=== PATIENT | male | born 1955 | race Caucasian/White ===

== ENCOUNTER 2016-03-08 03:00 | Inpatient (IN) | payer OTHER ==
[2016-03-08 03:31] VITALS: BMI 39.5
[2016-03-08 03:39] LABS: BASOPHIL 0.8 % (0-2.0); EOSINOPHIL 3.9 % (0-4.5); MEAN CELL VOLUME 81.2 fl (80-96); MEAN PLT VOLUME 7.8 fl (7.5-11.1); NEUTROPHILS 60.2 % (42.8-82.8); PLATELET COUNT 249 K/MM3 (134-434); RDW 15.4 % (11.9-15.9); WHITE BLOOD COUNT 6.8 K/mm3 (4.0-10.0)
--- NOTE | 2016-03-08 03:40 | PDOC ---
History of Present Illness <Katarzyna Ernst - Last Filed: 03/08/16 04:38> - General History Source: Patient, Family Exam Limitations: No Limitations - History of Present Illness Initial Comments: 03/08/16 03:34 Patient is a 60-year-old male with history of CAD, A. fib, sleep apnea, HLD, [place] , GERD, stents placement x 14, cadiac ablation complaining of shortness of breath. States his SOB is chronic but is able to lay down and go to sleep. But tonight when he would try to lay down he had shortness of breath and has been persistent since 10:00 PM. He denies any chest pain, dizziness, nausea, vomiting , diarrhea. States that about 9:30pm he had some sweating with no other symptoms. States had a cardiology follow up 1 week was uneventful. No recent travel, no leg swelling. He is on anticoagulants - coumadin, effient and asa PMD: Dr. Bari Nolan Cardio: Dr. Baer PMHx: as above PSocHx: denies drug, etoh, cig PFAMHX: non contributory ALL: Levaquin GENERAL/CONSTITUTIONAL: HEAD, EYES, EARS, NOSE AND THROAT: [No change in vision. No ear pain or discharge. No sore throat.] CARDIOVASCULAR: (+) chest pain (+) shortness of breath.] RESPIRATORY: [No cough, wheezing, or hemoptysis.] GASTROINTESTINAL: [No nausea, vomiting, diarrhea or constipation. No rectal bleeding.] GENITOURINARY: [No dysuria, frequency, or change in urination.] MUSCULOSKELETAL: [No joint or muscle swelling or pain. No neck or back pain.] SKIN AND BREASTS: [No rash or easy bruising.] NEUROLOGIC: [No headache, vertigo, loss of consciousness, or loss of sensation.] PSYCHIATRIC: [No depression or anxiety.] ENDOCRINE: [No increased thirst. No abnormal weight change.] HEMATOLOGIC/LYMPHATIC: [No anemia, easy bleeding, or history of blood clots.] ALLERGIC/IMMUNOLOGIC: [No hives or skin allergy. No latex allergy.] Dry, normal turgor, no rashes or lesions noted.] GENERAL: [The patient is awake, alert, and fully oriented, in no acute distress. ] HEAD: [Normal with no signs of trauma.] EYES: [Pupils equal, round and reactive to light, extraocular movements intact, sclera anicteric, conjunctiva clear.] ENT: [Ears normal, nares patent, oropharynx clear without exudates. Moist mucous membranes.] NECK: [Normal range of motion, supple without lymphadenopathy, JVD, or masses.] LUNGS: [Breath sounds equal, clear to auscultation bilaterally. No wheezes, and no crackles, slightly dyspneic.] HEART: distant heart sound, Regular rate and rhythm, normal S1 and S2 without murmur, rub.] ABDOMEN: Obese, soft, nontender, normoactive bowel sounds. No guarding, no rebound. No masses.] EXTREMITIES: [Normal range of motion, no edema. No clubbing or cyanosis. No cords, erythema, or tenderness.] NEUROLOGICAL: [Cranial nerves II through XII grossly intact. Normal speech, normal gait.] PSYCH: [Normal mood, normal affect.] SKIN: [Warm, Dry, normal turgor, no rashes or lesions noted.] <Tatum Townsend - Last Filed: 03/08/16 06:01> - General Chief Complaint: Shortness of Breath Stated Complaint: SOB, ARM PAIN Time Seen by Provider: 03/08/16 03:14 Past History <Katarzyna Ernst - Last Filed: 03/08/16 04:38> - Past Medical History Anemia: No Asthma: No Cancer: No Cardiac Disorders: Yes (A FIB, [place]) CVA: No COPD: Yes CHF: Yes Dementia: No Diabetes: No GI Disorders: Yes (ACID REFLUX) Disorders: No HTN: Yes Hypercholesterolemia: Yes Liver Disease: No Suicide Attempt (Hx): No Seizures: No Thyroid Disease: No - Surgical History Cardiac Surgery: Yes (13 stent placements & CARDIAC ABLIATION 01/2014) - Immunization History Immunization Up to Date: Yes - Psycho/Social/Smoking Cessation Hx Anxiety: No Suicidal Ideation: No Smoking Status: No Smoking History: Never smoked Have you smoked in the past 12 months: No Number of Cigarettes Smoked Daily: 0 If you are a former smoker, when did you quit?: 1990 Information on smoking cessation initiated: No Hx Alcohol Use: No Drug/Substance Use Hx: No Substance Use Type: None Hx Substance Use Treatment: No <Tatum Townsend - Last Filed: 03/08/16 06:01> - Past Medical History Allergies/Adverse Reactions: Allergies Allergy/AdvReac Type Severity Reaction Status Date / Time levofloxacin [From Levaquin] Allergy Intermediate Swelling Verified 03/08/16 04: 35 Home Medications: Ambulatory Orders Aspirin [ASA -] 81 mg PO DAILY 02/13/13 Furosemide [Lasix -] 40 mg PO BID 02/13/13 Lisinopril [Prinivil] 10 mg PO DAILY 02/13/13 Lubiprostone [Amitiza] 24 mcg PO DAILY 02/13/13 Oxycodone HCl 30 mg PO DAILY PRN 02/13/13 Oxycodone HCl/Acetaminophen [Percocet 10-650 mg Tablet] 1 - 2 tab PO Q6H PRN Prasugrel HCl [Effient] 5 mg PO DAILY 02/13/13 Pravastatin Sodium [Pravachol -] 80 mg PO HS 02/13/13 Ranolazine [Ranexa -] 1,000 mg PO BID 02/13/13 Fenofibrate 160 mg PO DAILY 09/30/13 [place]-3 Acid Ethyl Esters [Lovaza -] 1 gm PO BID 09/30/13 Roflumilast [Daliresp] 500 mcg PO DAILY 09/30/13 Dexlansoprazole [Dexilant] 60 mg PO BID 12/01/13 Warfarin Sodium [Coumadin] 4 mg PO HS 12/10/13 Albuterol Sulfate [Proair Hfa -] 1 - 2 inh PO QID PRN 01/16/14 Linaclotide [Linzess] 145 mcg PO DAILY 01/16/14 Amiodarone HCl [Cordarone -] 200 mg PO DAILY 04/19/14 Tamsulosin HCl [Flomax] 0.4 mg PO DAILY 02/04/15 Beclomethasone Dipropionate [Qvar] 2 inh IH BID 03/08/16 Diltiazem HCl [Diltiazem ER] 120 mg PO DAILY 03/08/16 Famotidine [Pepcid -] 40 mg PO DAILY 03/08/16 Isosorbide Mononitrate [IMDUR 120mg [STRENGTH NOT CARRIED]] 1 tab PO DAILY 03/08 Metoprolol Tartrate 100 mg PO DAILY 03/08/16 Pantoprazole Sodium [Protonix -] 40 mg PO DAILY 03/08/16 Ranitidine [Zantac -] 150 mg PO ACDIN 03/08/16 Roflumilast [Daliresp -] 500 mcg PO DAILY 03/08/16 Tiotropium Br/Olodaterol HCl [Stiolto Respimat Inhal [place]] 2.5 mcg IH BID 03/08 *Physical Exam - Vital Signs Last Vital Signs Temp Pulse Resp BP Pulse Ox 98.5 F 65 22 115/57 95 03/08/16 03:10 03/08/16 03:10 03/08/16 03:10 03/08/16 03:10 03/08/16 03:10 <Katarzyna Ernst - Last Filed: 03/08/16 04:38> - Vital Signs Last Vital Signs Temp Pulse Resp BP Pulse Ox 98.5 F 65 22 115/57 95 03/08/16 03:10 03/08/16 03:10 03/08/16 03:10 03/08/16 03:10 03/08/16 03:10 <Tatum Townsend - Last Filed: 03/08/16 06:01> ED Treatment Course - LABORATORY CBC & Chemistry Diagram: 03/08/16 03:29 03/08/16 03:29 - ADDITIONAL ORDERS Additional order review: Laboratory Results 03/08/16 03/08/16 03/08/16 03:29 03:29 03:29 INR 2.75 H Sodium 137 Potassium 4.4 Chloride 101 Carbon Dioxide 27 Anion Gap 9 BUN 28 H Creatinine 1.2 Creat Clearance w eGFR > 60 Random Glucose 115 H Calcium 8.5 Total Bilirubin 0.3 D AST 21 D ALT 29 D Alkaline Phosphatase 41 L D Creatine Kinase 118 Troponin I 0.32 H D B-Natriuretic Peptide 428.10 H Total Protein 7.1 Albumin 3.5 03/08/16 03:29 RBC 4.32 MCV 81.2 MCHC 32.0 RDW 15.4 MPV 7.8 Neutrophils % 60.2 Lymphocytes % 22.3 Monocytes % 12.8 H Eosinophils % 3.9 D Basophils % 0.8 - RADIOLOGY Radiology Studies Ordered: Category Date Time Status CHEST X-RAY PORTABLE* [RAD] Stat Radiology 03/08/16 03:11 Taken <Katarzyna Ernst - Last Filed: 03/08/16 04:38> - LABORATORY CBC & Chemistry Diagram: 03/08/16 03:29 03/08/16 03:29 <Tatum Townsend - Last Filed: 03/08/16 06:01> Medical Decision Making - Medical Decision Making 03/08/16 04:38 We paged pt's psychology instructor Keyur and spoke to Dr. Núñez who knows patient well and states that given the normal CPK, the elevated troponin is not as worrisome. Pt to be admitted to telemetry. Pt will not be anticoagulated further as he is therapeutic on coumadin and he takes Effient (prasugrel) He will be given his usual AM meds. No tele beds in house. Pt is awaiting a bed. Pt's PMD Ovidio admits to [facility]. We paged [facility]. <Katarzyna Ernst - Last Filed: 03/08/16 04:38> - Medical Decision Making 03/08/16 03:40 Patient is a 60-year-old male with history of CAD, A. fib, sleep apnea, complaining of shortness of breath. States his SOB is chronic but is able to lay down and go to sleep. SR rate 60, LAD, RBBB unchanged from prior cxr increased marking, cardiomegaly. labs reviewed noted to have elevated trop to 0.32 EKG repeated SR rate 60, LAD, (-) ST-T wave changes unchanged from prior 03/08/16 05:10 Laboratory Tests 03/08/16 03/08/16 03/08/16 03:29 03:29 03:29 WBC 6.8 Hgb 11.2 L Hct 35.1 L Plt Count 249 INR 2.75 H Sodium 137 Potassium 4.4 Chloride 101 Carbon Dioxide 27 Anion Gap 9 BUN 28 H Creatinine 1.2 Random Glucose 115 H Creatine Kinase 118 Troponin I 0.32 H D B-Natriuretic Peptide 03/08/16 03:29 WBC Hgb Hct Plt Count INR Sodium Potassium Chloride Carbon Dioxide Anion Gap BUN Creatinine Random Glucose Creatine Kinase Troponin I B-Natriuretic Peptide 428.10 H 03/08/16 05:11 Case was d/w Dr. Patton who states no intervention at this time. Admit to tele will follow. 03/08/1640 D/W Dr. Laundry Machine Mechanic who will admit. <Tatum Townsend - Last Filed: 03/08/16 06:01> *DC/Admit/Observation/Transfer - Discharge Dispostion Admit: Yes <Katarzyna Ernst - Last Filed: 03/08/16 04:38> - Discharge Dispostion Admit: Yes <Tatum Townsend - Last Filed: 03/08/16 06:01> Diagnosis at time of Disposition: Elevated troponin, Myocardial disease Dyspnea Qualifiers: Dyspnea type: orthopnea Qualified Code(s): R06.01 - Orthopnea - Discharge Dispostion Condition at time of disposition: Stable - Referrals
[2016-03-08 03:50] LABS: INR 2.75 (0.82-1.09); PROTHROMBIN TIME (PATIENT) 30.9 SEC (9.98-11.88)
[2016-03-08 04:01] LABS: ALBUMIN 3.5 g/dl (3.4-5.0); ANION GAP 9 (8-16); BILIRUBIN,TOTAL 0.3 mg/dL (0.2-1.0); CALCIUM 8.5 mg/dL (8.5-10.1); CO2 27 mmol/L (21-32); CREATININE 1.2 mg/dL (0.7-1.3); GLUCOSE,RANDOM 115 mg/dL (74-106); SGOT/AST 21 U/L (15-37); SGPT/ALT 29 U/L (12-78); TOT PROT 7.1 g/dl (6.4-8.2)
[2016-03-08 04:04] LABS: ALK PHOS 41 U/L (45-117); TROPONIN I 0.32 ng/ml (0.00-0.05)
[2016-03-08] MEDS ORDERED: ASPIRIN 325 MG ENTERIC COATED TABLET (FP) PO ONE (04:41)
[2016-03-08] MEDS ORDERED: OXYCODONE/APAP 5/325MG COMBO TABLET PO ONE (05:05)
[2016-03-08] MEDS ORDERED: PRASUGREL HCL 5 MG TAB PO ONE (05:13)
[2016-03-08] MEDS ORDERED: OXYCODONE/APAP 5/325MG COMBO TABLET ONE (05:14)
[2016-03-08] MEDS ORDERED: ASPIRIN 325 MG ENTERIC COATED TABLET (FP) ONE (05:15)
[2016-03-08] MEDS ORDERED: PATIENT'S OWN MEDICATION (NON-FORMULARY) (Oxycodone Hcl [Oxycodone Hcl] 30 MG) PO PRN (05:22)
[2016-03-08] MEDS ORDERED: ACETAMINOPHEN 325 MG TABLET (FP) PO PRN (06:13)
[2016-03-08] MEDS: FUROSEMIDE 40 MG TABLET (FP) PO SCH ×2 (06:25→14:00)
[2016-03-08] MEDS ORDERED: FUROSEMIDE 40 MG TABLET (FP) ONE (06:26)
[2016-03-08 08:54] LABS: INR 3.07 (0.82-1.09); PROTHROMBIN TIME (PATIENT) 34.6 SEC (9.98-11.88)
[2016-03-08 09:03] LABS: TROPONIN I 0.26 ng/ml (0.00-0.05)
--- NOTE | 2016-03-08 09:07 | HP ---
Admitting History and Physical - Admission History of Present Illness: 60-year-old male with history of CAD, A. fib, sleep apnea, HLD, [place], GERD, stents placement x 14, cadiac ablation complaining of shortness of breath. States his SOB is chronic but is able to lay down and go to sleep. But tonight when he would try to lay down he had shortness of breath and has been persistent since 10:00 PM. He denies any dizziness, nausea, vomiting, diarrhea. States that about 9:30pm he had some sweating with chest heaviness. States had a cardiology follow up 1 week was uneventful. No recent travel, no leg swelling. He is on anticoagulants - Coumadin, effient and asa Pt also diagnosed with sleep apnea but waiting for insurance for machine - Past Medical History Cardiovascular: Yes: AFIB, CAD, CHF (chronic diastolic), HTN, Hyperlipdemia, [place] , Other (SVT) Pulmonary: Yes: COPD, Sleep Apnea Gastrointestinal: Yes: GERD Psych: Yes: Anxiety Musculoskeletal: Yes: Chronic low back pain - Past Surgical History Past Surgical History: Yes: Stent (Multiple cardiac stents; pulmonary vein ablation Rx x 2 for AF/flutter) - Smoking History Smoking history: Never smoked Have you smoked in the past 12 months: No Aproximately how many cigarettes per day: 0 If you are a former smoker, when did you quit?: 1990 - Alcohol/Substance Use Hx Alcohol Use: No History of Substance Use: reports: None - Social History ADL: Independent History of Recent Travel: No Home Medications - Allergies Allergies/Adverse Reactions: Allergies Allergy/AdvReac Type Severity Reaction Status Date / Time levofloxacin [From Levaquin] Allergy Intermediate Swelling Verified 03/08/16 04: 35 - Home Medications Home Medications: Ambulatory Orders Aspirin [ASA -] 81 mg PO DAILY 02/13/13 Furosemide [Lasix -] 40 mg PO BID 02/13/13 Lisinopril [Prinivil] 10 mg PO DAILY 02/13/13 Lubiprostone [Amitiza] 24 mcg PO DAILY 02/13/13 Oxycodone HCl 30 mg PO DAILY PRN 02/13/13 Oxycodone HCl/Acetaminophen [Percocet 10-650 mg Tablet] 1 - 2 tab PO Q6H PRN Prasugrel HCl [Effient] 5 mg PO DAILY 02/13/13 Pravastatin Sodium [Pravachol -] 80 mg PO HS 02/13/13 Ranolazine [Ranexa -] 1,000 mg PO BID 02/13/13 Fenofibrate 160 mg PO DAILY 09/30/13 [place]-3 Acid Ethyl Esters [Lovaza -] 1 gm PO BID 09/30/13 Roflumilast [Daliresp] 500 mcg PO DAILY 09/30/13 Dexlansoprazole [Dexilant] 60 mg PO BID 12/01/13 Warfarin Sodium [Coumadin] 4 mg PO HS 12/10/13 Albuterol Sulfate [Proair Hfa -] 1 - 2 inh PO QID PRN 01/16/14 Linaclotide [Linzess] 145 mcg PO DAILY 01/16/14 Amiodarone HCl [Cordarone -] 200 mg PO DAILY 04/19/14 Tamsulosin HCl [Flomax] 0.4 mg PO DAILY 02/04/15 Beclomethasone Dipropionate [Qvar] 2 inh IH BID 03/08/16 Diltiazem HCl [Diltiazem ER] 120 mg PO DAILY 03/08/16 Famotidine [Pepcid -] 40 mg PO DAILY 03/08/16 Isosorbide Mononitrate [IMDUR 120mg [STRENGTH NOT CARRIED]] 1 tab PO DAILY 03/08 Metoprolol Tartrate 100 mg PO DAILY 03/08/16 Pantoprazole Sodium [Protonix -] 40 mg PO DAILY 03/08/16 Ranitidine [Zantac -] 150 mg PO ACDIN 03/08/16 Roflumilast [Daliresp -] 500 mcg PO DAILY 03/08/16 Tiotropium Br/Olodaterol HCl [Stiolto Respimat Inhal [place]] 2.5 mcg IH BID 03/08 Review of Systems - Review of Systems Cardiovascular: reports: Chest Pain, Shortness of Breath Respiratory: reports: Orthopnea, PND, SOB, SOB on Exertion Gastrointestinal: denies: Abdominal Pain Genitourinary: reports: No Symptoms Neurological: reports: No Symptoms Physical Examination Vital Signs: Vital Signs Temperature 97.7 F 03/08/16 07:00 Pulse Rate 57 L 03/08/16 07:00 Respiratory Rate 20 03/08/16 07:00 Blood Pressure 119/67 03/08/16 07:00 O2 Sat by Pulse Oximetry (%) 97 03/08/16 07:00 Cardiovascular: Yes: Murmur, S1, S2 Respiratory: Yes: Regular, CTA Bilaterally Gastrointestinal: Yes: Normal Bowel Sounds, Soft Edema: No Neurological: Yes: Alert, Oriented Imaging - Results X-ray: Report Reviewed (cardiomegaly) Problem List - Problems (1) Chest pain Assessment/Plan: PAIN FREE NOW CE POSITIVE--FOLLOW TREND CONTINUE WITH MEDS CARDIO CONSULT CHECK ON LAST STRESS TEST LAST STENT 2013 COUMADIN/EFFIENT/ASA ON METOPROLOL/CRADIZEM AND IMDUR Code(s): R07.9 - CHEST PAIN, UNSPECIFIED (2) Elevated troponin Assessment/Plan: FOLLOW LABS Code(s): R79.89 - OTHER SPECIFIED ABNORMAL FINDINGS OF BLOOD CHEMISTRY (3) Dyspnea Assessment/Plan: [facility]BO--COPD AND CAD PULM AND CARDIO Code(s): R06.00 - DYSPNEA, UNSPECIFIED Qualifiers: Dyspnea type: orthopnea Qualified Code(s): R06.01 - Orthopnea (4) Atrial fibrillation Assessment/Plan: RATE CONTROLLED ON AMIO AND AC Code(s): I48.91 - UNSPECIFIED ATRIAL FIBRILLATION (5) COPD (chronic obstructive pulmonary disease) Assessment/Plan: [facility] Code(s): J44.9 - CHRONIC OBSTRUCTIVE PULMONARY DISEASE, UNSPECIFIED (6) History of coronary artery stent placement Assessment/Plan: ABOVE Code(s): Z95.5 - PRESENCE OF CORONARY ANGIOPLASTY IMPLANT AND GRAFT
[2016-03-08] MEDS ORDERED: TAMSULOSIN HCL 0.4 MG CAP.ER.24H (FP) ONE (09:13)
[2016-03-08] MEDS: TAMSULOSIN HCL 0.4 MG CAP.ER.24H (FP) PO SCH (09:31)
[2016-03-08] MEDS ORDERED: PRASUGREL HCL 5 MG TAB PO SCH (10:00)
[2016-03-08] MEDS ORDERED: PATIENT'S OWN MEDICATION (NON-FORMULARY) (Linaclotide [Linzess] 145 MCG) PO SCH (10:00)
[2016-03-08] MEDS ORDERED: ROFLUMILAST 500 MCG TABLET PO SCH (10:00)
[2016-03-08] MEDS ORDERED: LISINOPRIL 10 MG TABLET (FP) PO SCH ×2 (10:00→22:00)
[2016-03-08] MEDS ORDERED: BECLOMETHASONE DIPROPIONATE IH SCH (10:00)
[2016-03-08] MEDS ORDERED: PATIENT'S OWN MEDICATION (NON-FORMULARY) (Tiotropium Br/Olodaterol Hcl [Stiolto Respimat I IH SCH (10:00)
[2016-03-08] MEDS ORDERED: PATIENT'S OWN MEDICATION (NON-FORMULARY) (Lubiprostone [Amitiza] 24 MCG) PO SCH (10:00)
[2016-03-08] MEDS ORDERED: PRASUGREL HCL 10 MG TAB PO SCH (10:00)
[2016-03-08] MEDS ORDERED: ASPIRIN 81 MG CHEWABLE TABLETS ONE (11:22)
[2016-03-08] MEDS: ASPIRIN 81 MG CHEWABLE TABLETS PO SCH ×2 (11:26→11:35)
[2016-03-08] MEDS: AMIODARONE HCL 200 MG TABLET (FP) PO SCH (11:27)
[2016-03-08] MEDS: ISOSORBIDE MONONITRATE 60 MG TAB.SR.24H (FP) PO SCH (11:28)
[2016-03-08] MEDS: OMEGA-3 ACID ETHYL ESTERS (FATTY-ACIDS) 1 GM CAPSULE (FP) PO SCH ×2 (11:28→21:49)
[2016-03-08] MEDS: METOPROLOL TARTRATE 50 MG TABLET (FP) PO SCH (11:28)
[2016-03-08] MEDS: ROFLUMILAST 500 MCG TABLET PO SCH (11:28)
[2016-03-08] MEDS: PANTOPRAZOLE 40 MG TABLET (FP) PO SCH ×2 (11:29→21:47)
[2016-03-08] MEDS: RANITIDINE HCL 150 MG TABLET (FP) PO SCH (11:29)
[2016-03-08] MEDS: FENOFIBRIC ACID 135 MG CAP PO SCH (11:29)
[2016-03-08] MEDS: RANOLAZINE E.R. 1,000 MG TABLET (FP) PO SCH ×2 (11:29→21:47)
[2016-03-08] MEDS ORDERED: oxyCODONE HCL 5 MG TABLET ONE (11:36)
[2016-03-08] MEDS: oxyCODONE HCL 5 MG TABLET PO PRN ×2 (11:37→18:02)
--- NOTE | 2016-03-08 12:16 | CONSULT ---
Consult Consult Specialty:: Cardiology dr. Baer Reason for Consultation:: positive TNI's - History of Present Illness Chief Complaint: sob History of Present Illness: 60-year-old male with history of CAD, A. fib, sleep apnea, HLD, [place], GERD, stents placement x 14, cadiac ablation complaining of shortness of breath. States his SOB is chronic but is able to lay down and go to sleep. But tonight when he would try to lay down he had shortness of breath and has been persistent since 10:00 PM. He denies any dizziness, nausea, vomiting, diarrhea. States that about 9:30pm he had some sweating with chest heaviness. States had a cardiology follow up 1 week was uneventful. No recent travel, no leg swelling. He is on anticoagulants - Coumadin, effient and asa Pt also diagnosed with sleep apnea but waiting for insurance for machine - History Source History Provided By: Patient, Family Member, Medical Record - Past Medical History Cardio/Vascular: Yes: AFIB, CAD, CHF (chronic diastolic), HTN, Hyperlipdemia, [place] , Other (SVT) Pulmonary: Yes: COPD, Sleep Apnea Gastrointestinal: Yes: GERD Psych: Yes: Anxiety Musculoskeletal: Yes: Chronic low back pain - Past Surgical History Past Surgical History: Yes: Stent (Multiple cardiac stents; pulmonary vein ablation Rx x 2 for AF/flutter) - Alcohol/Substance Use Hx Alcohol Use: No History of Substance Use: reports: None - Smoking History Smoking history: Never smoked Have you smoked in the past 12 months: No Aproximately how many cigarettes per day: 0 If you are a former smoker, when did you quit?: 1990 - Social History Usual Living Arrangement: With Spouse ADL: Independent History of Recent Travel: No Home Medications - Allergies Allergies/Adverse Reactions: Allergies Allergy/AdvReac Type Severity Reaction Status Date / Time levofloxacin [From Levaquin] Allergy Intermediate Swelling Verified 03/08/16 04: 35 - Home Medications Home Medications: Ambulatory Orders Aspirin [ASA -] 81 mg PO DAILY 02/13/13 Furosemide [Lasix -] 40 mg PO BID 02/13/13 Lisinopril [Prinivil] 10 mg PO DAILY 02/13/13 Lubiprostone [Amitiza] 24 mcg PO DAILY 02/13/13 Oxycodone HCl 30 mg PO DAILY PRN 02/13/13 Oxycodone HCl/Acetaminophen [Percocet 10-650 mg Tablet] 1 - 2 tab PO Q6H PRN Prasugrel HCl [Effient] 5 mg PO DAILY 02/13/13 Pravastatin Sodium [Pravachol -] 80 mg PO HS 02/13/13 Ranolazine [Ranexa -] 1,000 mg PO BID 02/13/13 Fenofibrate 160 mg PO DAILY 09/30/13 [place]-3 Acid Ethyl Esters [Lovaza -] 1 gm PO BID 09/30/13 Roflumilast [Daliresp] 500 mcg PO DAILY 09/30/13 Dexlansoprazole [Dexilant] 60 mg PO BID 12/01/13 Warfarin Sodium [Coumadin] 4 mg PO HS 12/10/13 Albuterol Sulfate [Proair Hfa -] 1 - 2 inh PO QID PRN 01/16/14 Linaclotide [Linzess] 145 mcg PO DAILY 01/16/14 Amiodarone HCl [Cordarone -] 200 mg PO DAILY 04/19/14 Tamsulosin HCl [Flomax] 0.4 mg PO DAILY 02/04/15 Beclomethasone Dipropionate [Qvar] 2 inh IH BID 03/08/16 Diltiazem HCl [Diltiazem ER] 120 mg PO DAILY 03/08/16 Famotidine [Pepcid -] 40 mg PO DAILY 03/08/16 Isosorbide Mononitrate [IMDUR 120mg [STRENGTH NOT CARRIED]] 1 tab PO DAILY 03/08 Metoprolol Tartrate 100 mg PO DAILY 03/08/16 Pantoprazole Sodium [Protonix -] 40 mg PO DAILY 03/08/16 Ranitidine [Zantac -] 150 mg PO ACDIN 03/08/16 Roflumilast [Daliresp -] 500 mcg PO DAILY 03/08/16 Tiotropium Br/Olodaterol HCl [Stiolto Respimat Inhal [place]] 2.5 mcg IH BID 03/08 Review of Systems - Review of Systems Constitutional: reports: No Symptoms Eyes: reports: No Symptoms HENT: reports: No Symptoms Neck: reports: No Symptoms Cardiovascular: reports: Shortness of Breath Gastrointestinal: reports: No Symptoms Genitourinary: reports: No Symptoms Breasts: reports: No Symptoms Reported Musculoskeletal: reports: No Symptoms Integumentary: reports: No Symptoms Neurological: reports: No Symptoms Endocrine: reports: No Symptoms Hematology/Lymphatic: reports: No Symptoms Psychiatric: reports: No Symptoms Vital Signs: Vital Signs Temperature 97.7 F 03/08/16 07:00 Pulse Rate 57 L 03/08/16 07:00 Respiratory Rate 20 03/08/16 07:00 Blood Pressure 119/67 03/08/16 07:00 O2 Sat by Pulse Oximetry (%) 97 03/08/16 07:00 Constitutional: Yes: Well Nourished, No Distress, Calm Eyes: Yes: WNL, Conjunctiva Clear, EOM Intact HENT: Yes: WNL, Atraumatic, Normocephalic Neck: Yes: WNL, Supple, Trachea Midline Respiratory: Yes: WNL, Regular, CTA Bilaterally Gastrointestinal: Yes: WNL, Normal Bowel Sounds Renal/: Yes: WNL Cardiovascular: Yes: WNL, Regular Rate and Rhythm Musculoskeletal: Yes: WNL Extremities: Yes: WNL Integumentary: Yes: WNL Neurological: Yes: WNL, Alert, Oriented ...Motor Strength: WNL Psychiatric: Yes: WNL, Alert, Oriented - Other Data Labs, Other Data: INR, PTT INR 3.07 (0.82-1.09) H 03/08/16 08:10 Troponin, BNP 03/08/16 08:10 Troponin I 0.26 H Troponin, BNP 03/08/16 08:10 Troponin I 0.26 H Laboratory Results - last 24 hr 03/08/16 03/08/16 03/08/16 03:29 03:29 03:29 WBC 6.8 RBC 4.32 Hgb 11.2 L Hct 35.1 L MCV 81.2 MCHC 32.0 RDW 15.4 Plt Count 249 MPV 7.8 Neutrophils % 60.2 Lymphocytes % 22.3 Monocytes % 12.8 H Eosinophils % 3.9 D Basophils % 0.8 INR 2.75 H Sodium 137 Potassium 4.4 Chloride 101 Carbon Dioxide 27 Anion Gap 9 BUN 28 H Creatinine 1.2 Creat Clearance w eGFR > 60 Random Glucose 115 H Calcium 8.5 Total Bilirubin 0.3 D AST 21 D ALT 29 D Alkaline Phosphatase 41 L D Creatine Kinase 118 Troponin I 0.32 H D B-Natriuretic Peptide Total Protein 7.1 Albumin 3.5 03/08/16 03/08/16 03/08/16 03:29 08:10 08:10 WBC RBC Hgb Hct MCV MCHC RDW Plt Count MPV Neutrophils % Lymphocytes % Monocytes % Eosinophils % Basophils % INR 3.07 H Sodium Potassium Chloride Carbon Dioxide Anion Gap BUN Creatinine Creat Clearance w eGFR Random Glucose Calcium Total Bilirubin AST ALT Alkaline Phosphatase Creatine Kinase 91 Troponin I 0.26 H B-Natriuretic Peptide 428.10 H Total Protein Albumin Imaging - Results Chest X-ray: Image Reviewed (cm no i/e) EKG: Pending Problem List - Problems (1) Chest pain Code(s): R07.9 - CHEST PAIN, UNSPECIFIED (2) Dyspnea Code(s): R06.00 - DYSPNEA, UNSPECIFIED Qualifiers: Dyspnea type: orthopnea Qualified Code(s): R06.01 - Orthopnea (3) Elevated troponin Code(s): R79.89 - OTHER SPECIFIED ABNORMAL FINDINGS OF BLOOD CHEMISTRY (4) Myocardial disease Code(s): I51.5 - MYOCARDIAL DEGENERATION (5) Respiratory distress Code(s): 786.09 - RESPIRATORY ABNORM NEC (6) Epistaxis Code(s): R04.0 - EPISTAXIS (7) Atrial fibrillation Code(s): I48.91 - UNSPECIFIED ATRIAL FIBRILLATION (8) CAD (coronary artery disease) Code(s): I25.10 - ATHSCL HEART DISEASE OF [place] CORONARY ARTERY W/O ANG PCTRS (9) COPD (chronic obstructive pulmonary disease) Code(s): J44.9 - CHRONIC OBSTRUCTIVE PULMONARY DISEASE, UNSPECIFIED (10) Chronic abdominal pain Code(s): R10.9 - UNSPECIFIED ABDOMINAL PAIN G89.29 - OTHER CHRONIC PAIN (11) Chronic back pain Code(s): M54.9 - DORSALGIA, UNSPECIFIED G89.29 - OTHER CHRONIC PAIN (12) Chronic diastolic heart failure Code(s): I50.32 - CHRONIC DIASTOLIC (CONGESTIVE) HEART FAILURE (13) Constipation Code(s): K59.00 - CONSTIPATION, UNSPECIFIED (14) History of coronary artery stent placement Code(s): Z95.5 - PRESENCE OF CORONARY ANGIOPLASTY IMPLANT AND GRAFT (15) Hyperlipidemia Code(s): E78.5 - HYPERLIPIDEMIA, UNSPECIFIED (16) Hypertension Code(s): I10 - ESSENTIAL (PRIMARY) HYPERTENSION Assessment/Plan chf nonstemi af htn hld plan iv lasix telemetry cont DAPT cont AC mibi st vs c. cath depending on patient course
[2016-03-08 15:57] LABS: TROPONIN I 0.24 ng/ml (0.00-0.05)
--- NOTE | 2016-03-08 17:14 | EKG ---
Test Reason : Blood Pressure : / mmHG Vent. Rate : 060 BPM Atrial Rate : 060 BPM P-R Int : 208 ms QRS Dur : 144 ms QT Int : 472 ms P-R-T Axes : 065 -79 036 degrees QTc Int : 472 ms NORMAL SINUS RHYTHM RIGHT BUNDLE BRANCH BLOCK LEFT ANTERIOR FASCICULAR BLOCK BIFASCICULAR BLOCK LATERAL INFARCT , AGE UNDETERMINED ABNORMAL ECG WHEN COMPARED WITH ECG OF 03-FEB-2015 23:37, NO SIGNIFICANT CHANGE WAS FOUND Confirmed by CYNTHIA SCHAFER MD ([id number]) on 03/08/2016 5:14:10 PM Referred By: AJ Confirmed By:CYNTHIA SCHAFER MD
--- NOTE | 2016-03-08 17:14 | EKG ---
Test Reason : Blood Pressure : / mmHG Vent. Rate : 060 BPM Atrial Rate : 060 BPM P-R Int : 208 ms QRS Dur : 138 ms QT Int : 460 ms P-R-T Axes : 073 -76 015 degrees QTc Int : 460 ms NORMAL SINUS RHYTHM RIGHT BUNDLE BRANCH BLOCK LEFT ANTERIOR FASCICULAR BLOCK BIFASCICULAR BLOCK CANNOT RULE OUT INFERIOR INFARCT , AGE UNDETERMINED ABNORMAL ECG WHEN COMPARED WITH ECG OF 08-MAR-2016 03:19, NO SIGNIFICANT CHANGE WAS FOUND Confirmed by CYNTHIA SCHAFER MD ([id number]) on 03/08/2016 5:14:24 PM Referred By: Confirmed By:CYNTHIA SCHAFER MD
[2016-03-08] MEDS ORDERED: WARFARIN NA 2 MG TABLET (UD) PO SCH (18:00)
[2016-03-08] MEDS ORDERED: ATORVASTATIN CA 20 MG TABLET (FP) PO SCH (22:00)
[2016-03-09] MEDS: oxyCODONE HCL 5 MG TABLET PO PRN ×3 (01:37→19:22)
[2016-03-09] MEDS: FUROSEMIDE 40 MG TABLET (FP) PO SCH ×2 (05:52→14:51)
[2016-03-09 07:15] LABS: BASOPHIL 0.5 % (0-2.0); EOSINOPHIL 3.3 % (0-4.5); MCHC 33.4 g/dl (32.0-35.9); MEAN CELL VOLUME 80.9 fl (80-96); MEAN PLT VOLUME 7.4 fl (7.5-11.1); NEUTROPHILS 65.7 % (42.8-82.8); PLATELET COUNT 238 K/MM3 (134-434); RDW 15.4 % (11.9-15.9); WHITE BLOOD COUNT 6.8 K/mm3 (4.0-10.0)
[2016-03-09 07:30] LABS: INR 2.43 (0.82-1.09); PROTHROMBIN TIME (PATIENT) 27.2 SEC (9.98-11.88)
--- NOTE | 2016-03-09 07:51 | PN ---
Progress Note, Physician History of Present Illness: had intermittent chest pain and sob last night--better this am - Current Medication List Current Medications: Active Medications Acetaminophen (Tylenol -) 650 mg PO Q6H PRN PRN Reason: PAIN Amiodarone HCl (Cordarone -) 200 mg PO DAILY [facility] Last Admin: 03/08/16 11:27 Dose: 200 mg Aspirin (Asa -) 81 mg PO DAILY [facility] Last Admin: 03/08/16 11:35 Dose: Not Given Atorvastatin Calcium (Lipitor -) 20 mg PO HS [facility] Last Admin: 03/08/16 21:48 Dose: 20 mg Diltiazem HCl (Cardizem Cd -) 120 mg PO DAILY [facility] Last Admin: 03/08/16 11:27 Dose: Not Given Fenofibric Acid (Trilipix -) 135 mg PO DAILY [facility] Last Admin: 03/08/16 11:29 Dose: 135 mg Furosemide (Lasix -) 40 mg PO BIDLASIX [facility] Last Admin: 03/09/16 05:52 Dose: 40 mg Isosorbide Mononitrate (Imdur -) 120 mg PO DAILY [facility] Last Admin: 03/08/16 11:28 Dose: Not Given Lisinopril (Prinivil) 10 mg PO [facility] Last Admin: 03/08/16 21:49 Dose: 10 mg Metoprolol Tartrate (Lopressor -) 100 mg PO DAILY [facility] Last Admin: 03/08/16 11:28 Dose: Not Given Non-Formulary Medication (Beclomethasone Dipropionate [Qvar]) 2 inh IH BID [facility] Non-Formulary Medication (Linaclotide [Linzess]) 145 mcg PO DAILY [facility] Non-Formulary Medication (Lubiprostone [Amitiza]) 24 mcg PO DAILY [facility] Non-Formulary Medication (Tiotropium Br/Olodaterol Hcl [Stiolto Respimat Inhal [place]]) 2.5 mcg IH BID [facility] [id number] Ethyl Esters (Lovaza -) 1 gm PO BID [facility] Last Admin: 03/08/16 21:49 Dose: 1 gm Oxycodone HCl (Roxicodone -) 10 mg PO Q6H PRN PRN Reason: PAIN Last Admin: 03/09/16 01:37 Dose: 10 mg Pantoprazole Sodium (Protonix -) 40 mg PO BID [facility] Last Admin: 03/08/16 21:47 Dose: 40 mg Prasugrel (Effient -) 5 mg PO DAILY [facility] Ranitidine HCl (Zantac -) 300 mg PO DAILY [facility] Last Admin: 03/08/16 11:29 Dose: 300 mg Ranolazine (Ranexa -) 1,000 mg PO BID [facility] Last Admin: 03/08/16 21:47 Dose: 1,000 mg Roflumilast (Daliresp -) 500 mcg PO DAILY [facility] Last Admin: 03/08/16 11:28 Dose: 500 mcg Tamsulosin HCl (Flomax -) 0.4 mg PO DAILY@0830 [facility] Last Admin: 03/08/16 09:31 Dose: 0.4 mg Warfarin Sodium (Coumadin -) 4 mg PO DAILY@1800 [facility] Last Admin: 03/08/16 18:02 Dose: 4 mg - Objective Vital Signs: Vital Signs Temperature 98.2 F 03/09/16 06:00 Pulse Rate 80 03/09/16 06:00 Respiratory Rate 19 03/09/16 06:00 Blood Pressure 109/43 03/09/16 06:00 O2 Sat by Pulse Oximetry (%) 96 03/09/16 06:00 Cardiovascular: Yes: Murmur, S1, S2 Respiratory: Yes: Regular, CTA Bilaterally Gastrointestinal: Yes: Normal Bowel Sounds, Soft Edema: No Labs: INR, PTT INR 2.43 (0.82-1.09) H 03/09/16 05:35 Problem List - Problems (1) Chest pain Assessment/Plan: PAIN FREE NOW CE POSITIVE--FOLLOW TREND CONTINUE WITH MEDS CARDIO CONSULT NOTED--WILL DISCUSS CATH LAST STENT 2013 COUMADIN/EFFIENT/ASA ON METOPROLOL/CRADIZEM AND IMDUR Code(s): R07.9 - CHEST PAIN, UNSPECIFIED (2) Elevated troponin Assessment/Plan: FOLLOW LABS--POSSIBLE CATH Code(s): R79.89 - OTHER SPECIFIED ABNORMAL FINDINGS OF BLOOD CHEMISTRY (3) Dyspnea Assessment/Plan: CONBO--COPD AND CAD PULM AND CARDIO Code(s): R06.00 - DYSPNEA, UNSPECIFIED Qualifiers: Dyspnea type: orthopnea Qualified Code(s): R06.01 - Orthopnea (4) Atrial fibrillation Assessment/Plan: RATE CONTROLLED ON AMIO AND AC INR, PTT INR 2.43 (0.82-1.09) H 03/09/16 05:35 Code(s): I48.91 - UNSPECIFIED ATRIAL FIBRILLATION (5) COPD (chronic obstructive pulmonary disease) Assessment/Plan: CESAR LEMUS Code(s): J44.9 - CHRONIC OBSTRUCTIVE PULMONARY DISEASE, UNSPECIFIED (6) History of coronary artery stent placement Assessment/Plan: ABOVE Code(s): Z95.5 - PRESENCE OF CORONARY ANGIOPLASTY IMPLANT AND GRAFT
[2016-03-09 07:53] LABS: ALBUMIN 3.6 g/dl (3.4-5.0); BILIRUBIN,TOTAL 0.5 mg/dL (0.2-1.0); CALCIUM 9.2 mg/dL (8.5-10.1); CREATININE 1.3 mg/dL (0.7-1.3); TOT PROT 6.9 g/dl (6.4-8.2)
[2016-03-09 08:52] LABS: TROPONIN I 0.16 ng/ml (0.00-0.05)
[2016-03-09] MEDS ORDERED: PT OWN MED DRAWER 7, Y5N ONE ×3 (09:47→22:21)
[2016-03-09] MEDS ORDERED: PRASUGREL HCL 5 MG TAB PO SCH (10:00)
[2016-03-09] MEDS: METOPROLOL TARTRATE 50 MG TABLET (FP) PO SCH (10:11)
[2016-03-09] MEDS: AMIODARONE HCL 200 MG TABLET (FP) PO SCH (10:11)
[2016-03-09] MEDS: RANITIDINE HCL 150 MG TABLET (FP) PO SCH (10:11)
[2016-03-09] MEDS: FENOFIBRIC ACID 135 MG CAP PO SCH (10:11)
[2016-03-09] MEDS: ASPIRIN 81 MG CHEWABLE TABLETS PO SCH (10:12)
[2016-03-09] MEDS: PANTOPRAZOLE 40 MG TABLET (FP) PO SCH (10:12)
[2016-03-09] MEDS: RANOLAZINE E.R. 1,000 MG TABLET (FP) PO SCH ×2 (10:12→21:10)
[2016-03-09] MEDS: ISOSORBIDE MONONITRATE 60 MG TAB.SR.24H (FP) PO SCH (10:12)
[2016-03-09] MEDS: TAMSULOSIN HCL 0.4 MG CAP.ER.24H (FP) PO SCH (10:12)
[2016-03-09] MEDS: OMEGA-3 ACID ETHYL ESTERS (FATTY-ACIDS) 1 GM CAPSULE (FP) PO SCH ×2 (10:12→22:23)
[2016-03-09] MEDS: ROFLUMILAST 500 MCG TABLET PO SCH (10:13)
--- NOTE | 2016-03-09 11:54 | PN ---
Progress Note (short form) - Note Progress Note: PULMONARY CONSULTATION DICTATED 03/09/16 IMP CHEST PAIN + TROPONINS ASHS S/P CABG,S/P STENTS DIASTOLIC HF DYSPNEA COPD NOREEN AFIB SVT HLD PLAN CARDIAC MONITORING INHALED BRONCHODILATORS SUPPLEMENTAL O2 BIPAP AT NIGHT ANTICOAGULATION FURTHER W/U PER CARDIOLOGY CHEST CT DR MIRANDA Problem List - Problems (1) Chest pain Code(s): R07.9 - CHEST PAIN, UNSPECIFIED (2) Dyspnea Code(s): R06.00 - DYSPNEA, UNSPECIFIED Qualifiers: Dyspnea type: orthopnea Qualified Code(s): R06.01 - Orthopnea (3) Elevated troponin Code(s): R79.89 - OTHER SPECIFIED ABNORMAL FINDINGS OF BLOOD CHEMISTRY (4) Myocardial disease Code(s): I51.5 - MYOCARDIAL DEGENERATION (5) Respiratory distress Code(s): 786.09 - RESPIRATORY ABNORM NEC (6) Atrial fibrillation Code(s): I48.91 - UNSPECIFIED ATRIAL FIBRILLATION (7) CAD (coronary artery disease) Code(s): I25.10 - ATHSCL HEART DISEASE OF [place] CORONARY ARTERY W/O ANG PCTRS (8) COPD (chronic obstructive pulmonary disease) Code(s): J44.9 - CHRONIC OBSTRUCTIVE PULMONARY DISEASE, UNSPECIFIED (9) Chronic back pain Code(s): M54.9 - DORSALGIA, UNSPECIFIED G89.29 - OTHER CHRONIC PAIN (10) Chronic diastolic heart failure Code(s): I50.32 - CHRONIC DIASTOLIC (CONGESTIVE) HEART FAILURE (11) History of coronary artery stent placement Code(s): Z95.5 - PRESENCE OF CORONARY ANGIOPLASTY IMPLANT AND GRAFT (12) Hypertension Code(s): I10 - ESSENTIAL (PRIMARY) HYPERTENSION (13) Obstructive sleep apnea Code(s): G47.33 - OBSTRUCTIVE SLEEP APNEA (ADULT) (PEDIATRIC)
--- NOTE | 2016-03-09 11:56 | PN ---
Progress Note, Physician Chief Complaint: Pt A&Ox3; no chest pain; no SOB at rest presently History of Present Illness: Patient is a 60-year-old male (fatimah Lopez), with history of CAD, A. fib, sleep apnea, HLD, [place], GERD, stents placement x 14 (most recent angiogram, 02/2015, showed multivessel nonobstrucitve CAD), cadiac ablation of AF (followed by Dr. Brandyn Pollock), now complaining of shortness of breath. States his SOB is chronic but is able to lay down and go to sleep. But tonight when he would try to lay down he had shortness of breath and has been persistent since 10:00 PM. He denies any chest pain, dizziness, nausea, vomiting, diarrhea. States that about 9:30pm he had some sweating with no other symptoms. States had a cardiology follow up 1 week ago which was uneventful. No recent travel, no leg swelling. He is on anticoagulants - coumadin, effient and asa - Current Medication List Current Medications: Active Medications Acetaminophen (Tylenol -) 650 mg PO Q6H PRN PRN Reason: PAIN Amiodarone HCl (Cordarone -) 200 mg PO DAILY [facility] Last Admin: 03/09/16 10:11 Dose: 200 mg Aspirin (Asa -) 81 mg PO DAILY [facility] Last Admin: 03/09/16 10:12 Dose: 81 mg Atorvastatin Calcium (Lipitor -) 20 mg PO HS [facility] Last Admin: 03/08/16 21:48 Dose: 20 mg Diltiazem HCl (Cardizem Cd -) 120 mg PO DAILY [facility] Last Admin: 03/09/16 10:12 Dose: 120 mg Fenofibric Acid (Trilipix -) 135 mg PO DAILY [facility] Last Admin: 03/09/16 10:11 Dose: 135 mg Furosemide (Lasix -) 40 mg PO BIDLASIX [facility] Last Admin: 03/09/16 05:52 Dose: 40 mg Isosorbide Mononitrate (Imdur -) 120 mg PO DAILY [facility] Last Admin: 03/09/16 10:12 Dose: 120 mg Lisinopril (Prinivil) 10 mg PO HS [facility] Last Admin: 03/08/16 21:49 Dose: 10 mg Metoprolol Tartrate (Lopressor -) 100 mg PO DAILY [facility] Last Admin: 03/09/16 10:11 Dose: 100 mg Non-Formulary Medication (Beclomethasone Dipropionate [Qvar]) 2 inh IH BID [facility] Non-Formulary Medication (Linaclotide [Linzess]) 145 mcg PO DAILY [facility] Non-Formulary Medication (Lubiprostone [Amitiza]) 24 mcg PO DAILY [facility] Non-Formulary Medication (Tiotropium Br/Olodaterol Hcl [Stiolto Respimat Inhal [place]]) 2.5 mcg IH BID [facility] [id number] Ethyl Esters (Lovaza -) 1 gm PO BID [facility] Last Admin: 03/09/16 10:12 Dose: 1 gm Oxycodone HCl (Roxicodone -) 10 mg PO Q6H PRN PRN Reason: PAIN Last Admin: 03/09/16 08:25 Dose: 10 mg Pantoprazole Sodium (Protonix -) 40 mg PO BID [facility] Last Admin: 03/09/16 10:12 Dose: 40 mg Prasugrel (Effient -) 5 mg PO DAILY [facility] Last Admin: 03/09/16 10:12 Dose: 5 mg Ranitidine HCl (Zantac -) 300 mg PO DAILY [facility] Last Admin: 03/09/16 10:11 Dose: 300 mg Ranolazine (Ranexa -) 1,000 mg PO BID [facility] Last Admin: 03/09/16 10:12 Dose: 1,000 mg Roflumilast (Daliresp -) 500 mcg PO DAILY [facility] Last Admin: 03/09/16 10:13 Dose: 500 mcg Tamsulosin HCl (Flomax -) 0.4 mg PO DAILY@0830 [facility] Last Admin: 03/09/16 10:12 Dose: 0.4 mg Warfarin Sodium (Coumadin -) 4 mg PO DAILY@1800 [facility] Last Admin: 03/08/16 18:02 Dose: 4 mg - Objective Vital Signs: Vital Signs Temperature 98.4 F 03/09/16 08:15 Pulse Rate 84 03/09/16 08:15 Respiratory Rate 16 03/09/16 08:15 Blood Pressure 152/70 03/09/16 08:15 O2 Sat by Pulse Oximetry (%) 96 03/09/16 06:00 Constitutional: Yes: Calm Eyes: Yes: WNL HENT: Yes: WNL Neck: Yes: WNL Cardiovascular: Yes: Regular Rate and Rhythm Respiratory: Yes: Regular Gastrointestinal: Yes: Abdomen, Obese, Tenderness ...Rectal Exam: No: Deferred Genitourinary: No: Anuria Breast(s): Yes: WNL Musculoskeletal: Yes: Back Pain Extremities: Yes: WNL Labs: CBC, BMP 03/09/16 05:35 03/09/16 05:35 INR, PTT INR 2.43 (0.82-1.09) H 03/09/16 05:35 - ....Imaging Chest X-ray: Image Reviewed (no acute pathology) EKG: Image Reviewed (No significant change (NSR; RBBB; LAFB)) Problem List - Problems (1) Dyspnea Code(s): R06.00 - DYSPNEA, UNSPECIFIED Qualifiers: Dyspnea type: orthopnea Qualified Code(s): R06.01 - Orthopnea (2) Elevated troponin Assessment/Plan: 0.32-->0.16 over the past 24 hours; normal CK. EKG: no significant changes (NSR; RBBB; LAFB). As discussed with Dr. Coyle, interventionalist, pt will require coronary angiogram. Addendum: pt developed abdominal pain, nausea and vomiting after eating lunch, and became hypotensive. TNI taken shortly after the event showed no significant change (0.17); f/u serially. EKG was unchanged; no arrhythmias. No change in Hb or WBCs; afebrile. Pt given IV fluids with initial mild improvement in BP. For transfer to ICU; GI f/u. Code(s): R79.89 - OTHER SPECIFIED ABNORMAL FINDINGS OF BLOOD CHEMISTRY (3) Myocardial disease Code(s): I51.5 - MYOCARDIAL DEGENERATION (4) Obstructive sleep apnea Code(s): G47.33 - OBSTRUCTIVE SLEEP APNEA (ADULT) (PEDIATRIC) (5) Atrial fibrillation Assessment/Plan: s/p ablation; has been in sinus rhythm. F/u with CAROL Quiros (pt is on both metoprolol and amiodarone). Code(s): I48.91 - UNSPECIFIED ATRIAL FIBRILLATION (6) CAD (coronary artery disease) Code(s): I25.10 - ATHSCL HEART DISEASE OF [place] CORONARY ARTERY W/O ANG PCTRS (7) COPD (chronic obstructive pulmonary disease) Code(s): J44.9 - CHRONIC OBSTRUCTIVE PULMONARY DISEASE, UNSPECIFIED (8) Chronic abdominal pain Code(s): R10.9 - UNSPECIFIED ABDOMINAL PAIN G89.29 - OTHER CHRONIC PAIN (9) Chronic back pain Code(s): M54.9 - DORSALGIA, UNSPECIFIED G89.29 - OTHER CHRONIC PAIN (10) Chronic diastolic heart failure Code(s): I50.32 - CHRONIC DIASTOLIC (CONGESTIVE) HEART FAILURE (11) History of coronary artery stent placement Code(s): Z95.5 - PRESENCE OF CORONARY ANGIOPLASTY IMPLANT AND GRAFT (12) Hyperlipidemia Code(s): E78.5 - HYPERLIPIDEMIA, UNSPECIFIED (13) Hypertension Code(s): I10 - ESSENTIAL (PRIMARY) HYPERTENSION
[2016-03-09] MEDS ORDERED: ALBUTEROL SO4 0.083% IH SOL 2.5 MG/3 ML VIAL.NEB. NEB PRN ×2 (12:02→15:50)
[2016-03-09] MEDS ORDERED: TIOTROPIUM BROMIDE 18 MCG/INH (DEVICE W/ 5 CAPSULES) IH SCH (12:15)
[2016-03-09 13:21] LABS: THYROID STIMULATING HORMONE 0.02 uIU/ml (0.358-3.74)
--- NOTE | 2016-03-09 13:56 | RAPID ---
Addendum entered and electronically signed by Mateo Warner RES 03/09/16 14: 46: Hold antihypertensives and antiarrhythmics while pt is hypotensive (MAP<65, SBP <90, DBP<60) and bradycardic (HR<60) unless otherwise instructed by Mine Technician Dr Muhammad or reconnaissance crewmember Dr Baer. Original Note: Physical Examination Vital Signs: Vital Signs Temperature 98.4 F 03/09/16 08:15 Pulse Rate 84 03/09/16 08:15 Respiratory Rate 16 03/09/16 08:15 Blood Pressure 152/70 03/09/16 08:15 O2 Sat by Pulse Oximetry (%) 96 03/09/16 06:00 Rapid response call for a 60 year old male with multiple cardiovascular commodities (CAD, A. fib on coumadin with therapeutic INR, sleep apnea, HLD, [place] , GERD, stents placement x 14, cardiac ablation) who was originally admitted for SOB and was supposed to be transferred to [facility] for cardiac cath. The rapid response was called for sudden worsening in shortness of breath , tachypnea 24-28, and hypotension 68/41, HR 50-60 AFIB. Pt was diaphoretic and was complaining of nausea and epigastric discomfort. Pt has just received multiple antihypertensive and antiarrhythmics at 1000 this am. Pt was placed 100% non rebreather mask, IV fluid bolus was initiated Stat CBC, cardiac profile, CMP, PTT, INR Stat blood sugar was checked, it was 122 Stat CXR ordered Stat EkG ordered Dr Baer cardiology on the case was paged and came to see patient Dr Boland made aware Give 500 ml IV fluid , After these intervention : The blood pressure improved to 81/46 Shortness of breath improved and epigastric discomfort resolved No changes in EKG pending CXR, labs and troponins Coumadin stop and PT made NPO Pt was supposed to be transferred for cardiac cath. Calling the transfer center to see if pt can be transferred stat Pt will transferred to ICU for further monitoring Keep MAP>65 and SBP>90 Repeat IV fluid 500ml Bolus as needed with caution, then reassess. keep O2 sat above 90% Labs: CBC, BMP 03/09/16 05:35 03/09/16 05:35
[2016-03-09 14:06] LABS: MCHC 33.3 g/dl (32.0-35.9); MEAN PLT VOLUME 7.1 fl (7.5-11.1); PLATELET COUNT 270 K/MM3 (134-434); RDW 14.8 % (11.9-15.9); WHITE BLOOD COUNT 9.7 K/mm3 (4.0-10.0)
[2016-03-09 14:20] LABS: INR 2.52 (0.82-1.09); PROTHROMBIN TIME (PATIENT) 28.2 SEC (9.98-11.88)
[2016-03-09 14:22] LABS: ACTIVATED PTT 45.7 SECONDS (26.9-34.4)
[2016-03-09] MEDS ORDERED: METOCLOPRAMIDE HCL INJECTION 10 MG/2 ML VIAL IVPB PRN ×2 (14:22→15:50)
[2016-03-09] MEDS ORDERED: PANTOPRAZOLE SODIUM 100 ML IVPB SCH (14:30)
[2016-03-09] MEDS ORDERED: SODIUM CHLORIDE 500 ML IV STA (14:35)
[2016-03-09 14:48] LABS: ALBUMIN 3.5 g/dl (3.4-5.0); CALCIUM 8.7 mg/dL (8.5-10.1); CREATININE 2.1 mg/dL (0.7-1.3); TOT PROT 6.6 g/dl (6.4-8.2)
[2016-03-09 14:54] LABS: BILIRUBIN,TOTAL 0.7 mg/dL (0.2-1.0); TROPONIN I 0.17 ng/ml (0.00-0.05)
--- NOTE | 2016-03-09 16:08 | CONSULT ---
Consultation: REQUESTING PROVIDER: CONSULT REQUEST: We have been asked to medically evaluate this patient for hypotension. HISTORY OF PRESENT ILLNESS: 60 yo M with PMHx of CAD s/p 14 stents , CHF( diastolic), A. fib s/p cadiac ablation,HLD,sleep apnea, GERD, admitted to [facility] for acute exacerbation of CHF. Associated with some chest heaviness. He denied any dizziness, nausea, vomiting, diarrhea. He saw his form designer one week ago and was uneventful. No recent travel, no leg swelling. AC with coumadin, effient and asa. He is being transfered to ICU after rapid response was called due to hypotension. He recieved all his antihypertensive medication at once this morning and BP dropped. He was given bolus of fluids and pressures began to normalize. - Past Medical History Cardiovascular: Yes: AFIB, CAD, CHF (chronic diastolic), HTN, Hyperlipdemia, [place] , Other (SVT) Pulmonary: Yes: COPD, Sleep Apnea Gastrointestinal: Yes: GERD Psych: Yes: Anxiety Musculoskeletal: Yes: Chronic low back pain - Past Surgical History Past Surgical History: Yes: Stent (Multiple cardiac stents; pulmonary vein ablation Rx x 2 for AF/flutter) - Smoking History Smoking history: Never smoked Have you smoked in the past 12 months: No Aproximately how many cigarettes per day: 0 If you are a former smoker, when did you quit?: 1990 - Alcohol/Substance Use Hx Alcohol Use: No History of Substance Use: reports: None - Social History ADL: Independent History of Recent Travel: No REVIEW OF SYSTEMS: CONSTITUTIONAL: Absent: fever, chills, diaphoresis, generalized weakness, malaise, loss of appetite, weight change HEENT: Absent: rhinorrhea, nasal congestion, throat pain, throat swelling, difficulty swallowing, mouth swelling, ear pain, eye pain, visual changes CARDIOVASCULAR: Absent: chest pain, syncope, palpitations, irregular heart rate, lightheadedness , peripheral edema RESPIRATORY: Absent: cough, shortness of breath, dyspnea with exertion, orthopnea, wheezing, stridor, hemoptysis GASTROINTESTINAL:(+) abdominal pain Absent: abdominal distension, nausea, vomiting, diarrhea, constipation, melena , hematochezia GENITOURINARY: Absent: dysuria, frequency, urgency, hesitancy, hematuria, flank pain, genital pain MUSCULOSKELETAL: (+) back pain-chronic Absent: myalgia, arthralgia, joint swelling,, neck pain SKIN: Absent: rash, itching, pallor HEMATOLOGIC/IMMUNOLOGIC: Absent: easy bleeding, easy bruising, lymphadenopathy, frequent infections ENDOCRINE: Absent: unexplained weight gain, unexplained weight loss, heat intolerance, cold intolerance NEUROLOGIC: Absent: headache, focal weakness or paresthesias, dizziness, unsteady gait, seizure, mental status changes, bladder or bowel incontinence PSYCHIATRIC: Absent: anxiety, depression, suicidal or homicidal ideation, hallucinations. PHYSICAL EXAMINATION Vital Signs - 24 hr 03/08/16 03/08/16 03/09/16 18:00 21:00 02:00 Temperature 98.2 F 97.7 F 98.2 F Pulse Rate 63 79 89 Respiratory 18 18 20 Rate Blood Pressure 145/65 146/89 120/62 O2 Sat by Pulse 95 Oximetry (%) 03/09/16 03/09/16 03/09/16 06:00 08:15 09:00 Temperature 98.2 F 98.4 F Pulse Rate 80 84 Respiratory 19 16 Rate Blood Pressure 109/43 152/70 O2 Sat by Pulse 96 96 Oximetry (%) 03/09/16 03/09/16 03/09/16 15:21 15:23 15:32 Temperature Pulse Rate 60 Respiratory 22 Rate Blood Pressure 91/54 O2 Sat by Pulse 94 L 94 L Oximetry (%) GENERAL: Comfortable, in no acute distress. HEAD: Normal with no signs of trauma. EYES: Pupils equal, round and reactive to light, extraocular movements intact, sclera anicteric, conjunctiva clear. No lid lag. EARS, NOSE, THROAT: Ears normal, nares patent, Moist mucous membranes. NECK: supple without JVD, or masses. LUNGS: Breath sounds equal, Bibasilar fine crackles. No wheezes, and no crackles. No accessory muscle use. HEART: Regular rate and rhythm, normal S1 and S2 without murmur, rub or gallop. ABDOMEN: Soft, epigastric tenderness. No rebound or gaurding. MUSCULOSKELETAL: Normal range of motion at all joints. No bony deformities or tenderness. No CVA tenderness. UPPER EXTREMITIES: 2+ pulses, warm, well-perfused. No cyanosis. No clubbing. Cap refill <2 seconds. trace peripheral edema. LOWER EXTREMITIES: 2+ pulses, warm, well-perfused. No calf tenderness. No peripheral edema. NEUROLOGICAL: AAOx3 PSYCHIATRIC: Cooperative. Good eye contact. Appropriate mood and affect. SKIN: Warm, dry, normal turgor, no rashes or lesions noted. Laboratory Results - last 24 hr 03/08/16 03/09/16 03/09/16 15:10 05:35 05:35 WBC 6.8 RBC 4.55 Hgb 12.3 Hct 36.8 MCV 80.9 MCHC 33.4 RDW 15.4 Plt Count 238 MPV 7.4 L Neutrophils % 65.7 Lymphocytes % 19.6 Monocytes % 10.9 H Eosinophils % 3.3 Basophils % 0.5 INR PTT (Actin FS) Sodium 135 L Potassium 3.9 Chloride 96 L Carbon Dioxide 32 Anion Gap 7 L BUN 23 H Creatinine 1.3 Creat Clearance w eGFR 55.94 POC Glucometer Random Glucose 101 Calcium 9.2 Total Bilirubin 0.5 D AST 23 ALT 31 Alkaline Phosphatase 45 Creatine Kinase 90 64 Troponin I 0.24 H 0.16 H D Total Protein 6.9 Albumin 3.6 Triglycerides 105 Cholesterol 152 Total LDL Cholesterol 86 HDL Cholesterol 48 TSH 0.02 L 03/09/16 03/09/16 03/09/16 05:35 05:35 05:35 WBC RBC Hgb Hct MCV MCHC RDW Plt Count MPV Neutrophils % Lymphocytes % Monocytes % Eosinophils % Basophils % INR 2.43 H PTT (Actin FS) Sodium Potassium Chloride Carbon Dioxide Anion Gap BUN Creatinine Creat Clearance w eGFR POC Glucometer Random Glucose Calcium Total Bilirubin AST ALT Alkaline Phosphatase Creatine Kinase Cancelled Troponin I Cancelled Total Protein Albumin Triglycerides Cholesterol Total LDL Cholesterol HDL Cholesterol TSH Cancelled 03/09/16 03/09/16 03/09/16 05:35 13:49 14:00 WBC 9.7 D RBC 4.36 Hgb 11.8 Hct 35.4 MCV 81.0 MCHC 33.3 RDW 14.8 Plt Count 270 MPV 7.1 L Neutrophils % Lymphocytes % Monocytes % Eosinophils % Basophils % INR PTT (Actin FS) Sodium Potassium Chloride Carbon Dioxide Anion Gap BUN Creatinine Creat Clearance w eGFR POC Glucometer 122 Random Glucose Calcium Total Bilirubin AST ALT Alkaline Phosphatase Creatine Kinase Troponin I Total Protein Albumin Triglycerides Cancelled Cholesterol Cancelled Total LDL Cholesterol Cancelled HDL Cholesterol Cancelled TSH 03/09/16 03/09/16 14:00 14:00 WBC RBC Hgb Hct MCV MCHC RDW Plt Count MPV Neutrophils % Lymphocytes % Monocytes % Eosinophils % Basophils % INR 2.52 H PTT (Actin FS) 45.7 H Sodium 133 L Potassium 4.0 Chloride 94 L Carbon Dioxide 31 Anion Gap 8 BUN 28 H D Creatinine 2.1 H D Creat Clearance w eGFR 32.16 POC Glucometer Random Glucose 114 H Calcium 8.7 Total Bilirubin 0.7 D AST 21 ALT 31 Alkaline Phosphatase 43 L Creatine Kinase 56 Troponin I 0.17 H Total Protein 6.6 Albumin 3.5 Triglycerides Cholesterol Total LDL Cholesterol HDL Cholesterol TSH Active Medications Generic Name Dose Route Start Last Admin Trade Name Freq PRN Reason Stop Dose Admin Acetaminophen 650 mg 03/08/16 06:13 Tylenol - PO Q6H PRN PAIN Albuterol Sulfate 1 amp 03/09/16 12:02 Ventolin 0.083% Nebulizer Soln - NEB Q4H PRN SHORT OF BREATH/WHEEZING Amiodarone HCl 200 mg 03/08/16 10:00 03/09/16 10:11 Cordarone - PO 200 mg DAILY RENY Administration Aspirin 81 mg 03/08/16 10:00 03/09/16 10:12 Asa - PO 81 mg DAILY RENY Administration Atorvastatin Calcium 20 mg 03/08/16 22:00 03/08/16 21:48 Lipitor - PO 20 mg HS RENY Administration Budesonide/Formoterol Fumarate 2 puff 03/09/16 22:00 Symbicort 80/4.5mcg - IH BID RENY Diltiazem HCl 120 mg 03/08/16 10:00 03/09/16 10:12 Cardizem Cd - PO 120 mg DAILY RENY Administration Fenofibric Acid 135 mg 03/08/16 10:00 03/09/16 10:11 Trilipix - PO 135 mg DAILY RENY Administration Furosemide 40 mg 03/08/16 06:00 03/09/16 14:51 Lasix - PO Not Given BIDLASIX RENY Pantoprazole Sodium 100 mls @ 200 mls/hr 03/09/16 14:30 Protonix 40mg Ivpb (Pre-Docked) IVPB DAILY [facility] Isosorbide Mononitrate 120 mg 03/08/16 10:00 03/09/16 10:12 Imdur - PO 120 mg DAILY RENY Administration Lisinopril 10 mg 03/08/16 22:00 03/08/16 21:49 Prinivil PO 10 mg HS RENY Administration Metoclopramide HCl 10 mg 03/09/16 14:22 Reglan Injection - IVPB Q8H PRN NAUSEA AND/OR VOMITING Metoprolol Tartrate 100 mg 03/08/16 10:00 03/09/16 10:11 Lopressor - PO 100 mg DAILY RENY Administration Non-Formulary Medication 145 mcg 03/08/16 10:00 Linaclotide [Linzess] PO DAILY RENY Non-Formulary Medication 24 mcg 03/08/16 10:00 Lubiprostone [Amitiza] PO DAILY RENY [id number] Ethyl Esters 1 gm 03/08/16 10:00 03/09/16 10:12 Lovaza - PO 1 gm BID RENY Administration Oxycodone HCl 10 mg 03/08/16 06:13 03/09/16 08:25 Roxicodone - PO 10 mg Q6H PRN Administration PAIN Prasugrel 5 mg 03/09/16 10:00 03/09/16 10:12 Effient - PO 5 mg DAILY RENY Administration Ranitidine HCl 300 mg 03/08/16 10:00 03/09/16 10:11 Zantac - PO 300 mg DAILY RENY Administration Ranolazine 1,000 mg 03/08/16 10:00 03/09/16 10:12 Ranexa - PO 1,000 mg BID RENY Administration Roflumilast 500 mcg 03/08/16 10:00 03/09/16 10:13 Daliresp - PO 500 mcg DAILY RENY Administration Tamsulosin HCl 0.4 mg 03/08/16 08:30 03/09/16 10:12 Flomax - PO 0.4 mg DAILY@0830 RENY Administration Tiotropium [place] 1 puff 03/09/16 12:15 Spiriva - IH DAILY RENY ASSESSMENT/PLAN: 60 yo M with PMHx of CAD, CHF, Afib admitted for acute exacerbation of CHF transfered to ICU s/p rapid response for hypotension. Patient is up for transfer to [place] for cardiac cath. Plan: Neuro: * AAOx3 NAD Pulmonary: * Continue supplemental O2 2.5L NC to maintain O2 sat >90% * Daliresp 500mcg OP daily * Albuterol 1 amp NEB Q4H PRN * Symbicort 80/4.5mcg 2 puff IH BID * Spiriva 1 puff IH DAILY CV: * found to be hypertensive on floors given bolus of fluid and transfered to ICU. * hypertension most likely 2/2 BP meds given all at once this morning. He usually splits them up at home. * Hold all BP meds for now. * Continue antianginals * UP for transfer to [place] for cardiac cath. GI: * Protonix 40 mg BID * repeat H/H r/o bleed. Dispo: We will continue to follow the patient. Thank you for this consultative opportunity. Possible transfer back to floors in AM if BP stable. Visit type - Emergency Visit Emergency Visit: Yes ED Registration Date: 03/08/16 Care time: The patient presented to the Emergency Department on the above date and was hospitalized for further evaluation of their emergent condition. - New Patient This patient is new to me today: Yes Date on this admission: 03/09/16 - Critical Care Critical Care patient: Yes Total Critical Care Time (in minutes): 31 Critical Care Statement: The care of this patient involved high complexity decision making to prevent further life threatening deterioration of the patient 's condition and/or to evalute & treat vital organ system(s) failure or risk of failure.
--- NOTE | 2016-03-09 17:15 | PN ---
Teaching Attending Note Name of Resident: Enoc Krishnamurthy ATTENDING PHYSICIAN STATEMENT I saw and evaluated the patient. I reviewed the resident's note and discussed the case with the resident. I agree with the resident's findings and plan as documented. SUBJECTIVE: 60 M, CAD, PCI x 14(?), CHF (diastolic), Afib, S/P cadiac ablation, HLD, sleep apnea (not using PAP), morbid obesity, and GERD. Initially admitted due to acute exacerbation of CHF and chest heaviness. Developed acute hypotension while on Telemetry (SBP 70's). Now in the ICU. BP has improved to No dizziness, nausea, vomiting, diarrhea. He saw his travel nurse one week ago and was uneventful. No recent travel, no leg swelling. AC with coumadin, effient and asa. He is being transfered to ICU after rapid response was called due to hypotension. He recieved all his antihypertensive medication at once this morning and BP dropped. He was given bolus of fluids and pressures began to normalize. - Past Medical History Cardiovascular: Yes: AFIB, CAD, CHF (chronic diastolic), HTN, Hyperlipdemia, [place] , Other (SVT) Pulmonary: Yes: COPD, Sleep Apnea Gastrointestinal: Yes: GERD Psych: Yes: Anxiety Musculoskeletal: Yes: Chronic low back pain - Past Surgical History Past Surgical History: Yes: Stent (Multiple cardiac stents; pulmonary vein ablation Rx x 2 for AF/flutter) - Smoking History Smoking history: Never smoked Have you smoked in the past 12 months: No Aproximately how many cigarettes per day: 0 If you are a former smoker, when did you quit?: 1990 - Alcohol/Substance Use Hx Alcohol Use: No History of Substance Use: reports: None - Social History ADL: Independent History of Recent Travel: No REVIEW OF SYSTEMS: CONSTITUTIONAL: Absent: fever, chills, diaphoresis, generalized weakness, malaise, loss of appetite, weight change HEENT: Absent: rhinorrhea, nasal congestion, throat pain, throat swelling, difficulty swallowing, mouth swelling, ear pain, eye pain, visual changes CARDIOVASCULAR: Absent: chest pain, syncope, palpitations, irregular heart rate, lightheadedness , peripheral edema RESPIRATORY: Absent: cough, shortness of breath, dyspnea with exertion, orthopnea, wheezing, stridor, hemoptysis GASTROINTESTINAL:(+) abdominal pain Absent: abdominal distension, nausea, vomiting, diarrhea, constipation, melena , hematochezia GENITOURINARY: Absent: dysuria, frequency, urgency, hesitancy, hematuria, flank pain, genital pain MUSCULOSKELETAL: (+) back pain-chronic Absent: myalgia, arthralgia, joint swelling,, neck pain SKIN: Absent: rash, itching, pallor HEMATOLOGIC/IMMUNOLOGIC: Absent: easy bleeding, easy bruising, lymphadenopathy, frequent infections ENDOCRINE: Absent: unexplained weight gain, unexplained weight loss, heat intolerance, cold intolerance NEUROLOGIC: Absent: headache, focal weakness or paresthesias, dizziness, unsteady gait, seizure, mental status changes, bladder or bowel incontinence PSYCHIATRIC: Absent: anxiety, depression, suicidal or homicidal ideation, hallucinations. PHYSICAL EXAMINATION Vital Signs - 24 hr 03/08/16 03/08/16 03/09/16 18:00 21:00 02:00 Temperature 98.2 F 97.7 F 98.2 F Pulse Rate 63 79 89 Respiratory 18 18 20 Rate Blood Pressure 145/65 146/89 120/62 O2 Sat by Pulse 95 Oximetry (%) 03/09/16 03/09/16 03/09/16 06:00 08:15 09:00 Temperature 98.2 F 98.4 F Pulse Rate 80 84 Respiratory 19 16 Rate Blood Pressure 109/43 152/70 O2 Sat by Pulse 96 96 Oximetry (%) 03/09/16 03/09/16 03/09/16 15:21 15:23 15:32 Temperature Pulse Rate 60 Respiratory 22 Rate Blood Pressure 91/54 O2 Sat by Pulse 94 L 94 L Oximetry (%) GENERAL: Comfortable, in no acute distress. HEAD: Normal with no signs of trauma. EYES: Pupils equal, round and reactive to light, extraocular movements intact, sclera anicteric, conjunctiva clear. No lid lag. EARS, NOSE, THROAT: Ears normal, nares patent, Moist mucous membranes. NECK: supple without JVD, or masses. LUNGS: Breath sounds equal, Bibasilar fine crackles. No wheezes, and no crackles. No accessory muscle use. HEART: Regular rate and rhythm, normal S1 and S2 without murmur, rub or gallop. ABDOMEN: Soft, epigastric tenderness. No rebound or gaurding. MUSCULOSKELETAL: Normal range of motion at all joints. No bony deformities or tenderness. No CVA tenderness. UPPER EXTREMITIES: 2+ pulses, warm, well-perfused. No cyanosis. No clubbing. Cap refill <2 seconds. trace peripheral edema. LOWER EXTREMITIES: 2+ pulses, warm, well-perfused. No calf tenderness. No peripheral edema. NEUROLOGICAL: AAOx3 PSYCHIATRIC: Cooperative. Good eye contact. Appropriate mood and affect. SKIN: Warm, dry, normal turgor, no rashes or lesions noted. Laboratory Results - last 24 hr 03/08/16 03/09/16 03/09/16 15:10 05:35 05:35 WBC 6.8 RBC 4.55 Hgb 12.3 Hct 36.8 MCV 80.9 MCHC 33.4 RDW 15.4 Plt Count 238 MPV 7.4 L Neutrophils % 65.7 Lymphocytes % 19.6 Monocytes % 10.9 H Eosinophils % 3.3 Basophils % 0.5 INR PTT (Actin FS) Sodium 135 L Potassium 3.9 Chloride 96 L Carbon Dioxide 32 Anion Gap 7 L BUN 23 H Creatinine 1.3 Creat Clearance w eGFR 55.94 POC Glucometer Random Glucose 101 Calcium 9.2 Total Bilirubin 0.5 D AST 23 ALT 31 Alkaline Phosphatase 45 Creatine Kinase 90 64 Troponin I 0.24 H 0.16 H D Total Protein 6.9 Albumin 3.6 Triglycerides 105 Cholesterol 152 Total LDL Cholesterol 86 HDL Cholesterol 48 TSH 0.02 L 03/09/16 03/09/16 03/09/16 05:35 05:35 05:35 WBC RBC Hgb Hct MCV MCHC RDW Plt Count MPV Neutrophils % Lymphocytes % Monocytes % Eosinophils % Basophils % INR 2.43 H PTT (Actin FS) Sodium Potassium Chloride Carbon Dioxide Anion Gap BUN Creatinine Creat Clearance w eGFR POC Glucometer Random Glucose Calcium Total Bilirubin AST ALT Alkaline Phosphatase Creatine Kinase Cancelled Troponin I Cancelled Total Protein Albumin Triglycerides Cholesterol Total LDL Cholesterol HDL Cholesterol TSH Cancelled 03/09/16 03/09/16 03/09/16 05:35 13:49 14:00 WBC 9.7 D RBC 4.36 Hgb 11.8 Hct 35.4 MCV 81.0 MCHC 33.3 RDW 14.8 Plt Count 270 MPV 7.1 L Neutrophils % Lymphocytes % Monocytes % Eosinophils % Basophils % INR PTT (Actin FS) Sodium Potassium Chloride Carbon Dioxide Anion Gap BUN Creatinine Creat Clearance w eGFR POC Glucometer 122 Random Glucose Calcium Total Bilirubin AST ALT Alkaline Phosphatase Creatine Kinase Troponin I Total Protein Albumin Triglycerides Cancelled Cholesterol Cancelled Total LDL Cholesterol Cancelled HDL Cholesterol Cancelled TSH 03/09/16 03/09/16 14:00 14:00 WBC RBC Hgb Hct MCV MCHC RDW Plt Count MPV Neutrophils % Lymphocytes % Monocytes % Eosinophils % Basophils % INR 2.52 H PTT (Actin FS) 45.7 H Sodium 133 L Potassium 4.0 Chloride 94 L Carbon Dioxide 31 Anion Gap 8 BUN 28 H D Creatinine 2.1 H D Creat Clearance w eGFR 32.16 POC Glucometer Random Glucose 114 H Calcium 8.7 Total Bilirubin 0.7 D AST 21 ALT 31 Alkaline Phosphatase 43 L Creatine Kinase 56 Troponin I 0.17 H Total Protein 6.6 Albumin 3.5 Triglycerides Cholesterol Total LDL Cholesterol HDL Cholesterol TSH Active Medications Generic Name Dose Route Start Last Admin Trade Name Freq PRN Reason Stop Dose Admin Acetaminophen 650 mg 03/08/16 06:13 Tylenol - PO Q6H PRN PAIN Albuterol Sulfate 1 amp 03/09/16 12:02 Ventolin 0.083% Nebulizer Soln - NEB Q4H PRN SHORT OF BREATH/WHEEZING Amiodarone HCl 200 mg 03/08/16 10:00 03/09/16 10:11 Cordarone - PO 200 mg DAILY RENY Administration Aspirin 81 mg 03/08/16 10:00 03/09/16 10:12 Asa - PO 81 mg DAILY RENY Administration Atorvastatin Calcium 20 mg 03/08/16 22:00 03/08/16 21:48 Lipitor - PO 20 mg HS RENY Administration Budesonide/Formoterol Fumarate 2 puff 03/09/16 22:00 Symbicort 80/4.5mcg - IH BID RENY Diltiazem HCl 120 mg 03/08/16 10:00 03/09/16 10:12 Cardizem Cd - PO 120 mg DAILY RENY Administration Fenofibric Acid 135 mg 03/08/16 10:00 03/09/16 10:11 Trilipix - PO 135 mg DAILY RENY Administration Furosemide 40 mg 03/08/16 06:00 03/09/16 14:51 Lasix - PO Not Given BIDLASIX RENY Pantoprazole Sodium 100 mls @ 200 mls/hr 03/09/16 14:30 Protonix 40mg Ivpb (Pre-Docked) IVPB DAILY [facility] Isosorbide Mononitrate 120 mg 03/08/16 10:00 03/09/16 10:12 Imdur - PO 120 mg DAILY RENY Administration Lisinopril 10 mg 03/08/16 22:00 03/08/16 21:49 Prinivil PO 10 mg HS RENY Administration Metoclopramide HCl 10 mg 03/09/16 14:22 Reglan Injection - IVPB Q8H PRN NAUSEA AND/OR VOMITING Metoprolol Tartrate 100 mg 03/08/16 10:00 03/09/16 10:11 Lopressor - PO 100 mg DAILY RENY Administration Non-Formulary Medication 145 mcg 03/08/16 10:00 Linaclotide [Linzess] PO DAILY RENY Non-Formulary Medication 24 mcg 03/08/16 10:00 Lubiprostone [Amitiza] PO DAILY RENY [id number] Ethyl Esters 1 gm 03/08/16 10:00 03/09/16 10:12 Lovaza - PO 1 gm BID RENY Administration Oxycodone HCl 10 mg 03/08/16 06:13 03/09/16 08:25 Roxicodone - PO 10 mg Q6H PRN Administration PAIN Prasugrel 5 mg 03/09/16 10:00 03/09/16 10:12 Effient - PO 5 mg DAILY RENY Administration Ranitidine HCl 300 mg 03/08/16 10:00 03/09/16 10:11 Zantac - PO 300 mg DAILY RENY Administration Ranolazine 1,000 mg 03/08/16 10:00 03/09/16 10:12 Ranexa - PO 1,000 mg BID RENY Administration Roflumilast 500 mcg 03/08/16 10:00 03/09/16 10:13 Daliresp - PO 500 mcg DAILY RENY Administration Tamsulosin HCl 0.4 mg 03/08/16 08:30 03/09/16 10:12 Flomax - PO 0.4 mg DAILY@0830 RENY Administration Tiotropium [place] 1 puff 03/09/16 12:15 Spiriva - IH DAILY RENY ASSESSMENT/PLAN: 60 yo M with PMHx of CAD, CHF, Afib admitted for acute exacerbation of CHF transfered to ICU s/p rapid response for hypotension. Patient is up for transfer to [place] for cardiac cath. Plan: Neuro: * AAOx3 NAD Pulmonary: * Continue supplemental O2 2.5L NC to maintain O2 sat >90% * Daliresp 500mcg OP daily * Albuterol 1 amp NEB Q4H PRN * Symbicort 80/4.5mcg 2 puff IH BID * Spiriva 1 puff IH DAILY CV: * found to be hypertensive on floors given bolus of fluid and transfered to ICU. * hypertension most likely 2/2 BP meds given all at once this morning. He usually splits them up at home. * Hold all BP meds for now. * Continue antianginals * UP for transfer to [place] for cardiac cath. GI: * Protonix 40 mg BID * repeat H/H r/o bleed. Dispo: We will continue to follow the patient. Thank you for this consultative opportunity. Possible transfer back to floors in AM if BP stable. Visit type - Emergency Visit Emergency Visit: Yes ED Registration Date: 03/08/16 Care time: The patient presented to the Emergency Department on the above date and was hospitalized for further evaluation of their emergent condition. - New Patient This patient is new to me today: Yes Date on this admission: 03/09/16 - Critical Care Critical Care patient: Yes Total Critical Care Time (in minutes): 31 Critical Care Statement: The care of this patient involved high complexity decision making to prevent further life threatening deterioration of the patient 's condition and/or to evalute & treat vital organ system(s) failure or risk of failure. OBJECTIVE: ASSESSMENT AND PLAN:
--- NOTE | 2016-03-09 18:20 | EKG ---
Test Reason : Blood Pressure : / mmHG Vent. Rate : 058 BPM Atrial Rate : 058 BPM P-R Int : 226 ms QRS Dur : 146 ms QT Int : 470 ms P-R-T Axes : 046 -87 -06 degrees QTc Int : 461 ms SINUS BRADYCARDIA WITH 1ST DEGREE A-V BLOCK RIGHT BUNDLE BRANCH BLOCK LEFT ANTERIOR FASCICULAR BLOCK BIFASCICULAR BLOCK LATERAL INFARCT , AGE UNDETERMINED POSSIBLE INFERIOR INFARCT (CITED ON OR BEFORE 08-MAR-2016) ABNORMAL ECG WHEN COMPARED WITH ECG OF 08-MAR-2016 04:33, NO SIGNIFICANT CHANGE WAS FOUND Confirmed by CYNTHIA SCHAFER MD ([id number]) on 03/09/2016 6:20:17 PM Referred By: DAVINA ANDRADE DR Confirmed By:CYNTHIA SCHAFER MD
--- NOTE | 2016-03-09 18:21 | EKG ---
Test Reason : Blood Pressure : / mmHG Vent. Rate : 060 BPM Atrial Rate : 060 BPM P-R Int : 226 ms QRS Dur : 146 ms QT Int : 476 ms P-R-T Axes : 072 -84 -04 degrees QTc Int : 476 ms SINUS RHYTHM WITH 1ST DEGREE A-V BLOCK RIGHT BUNDLE BRANCH BLOCK LEFT ANTERIOR FASCICULAR BLOCK BIFASCICULAR BLOCK CANNOT RULE OUT INFERIOR INFARCT (CITED ON OR BEFORE 08-MAR-2016) ABNORMAL ECG WHEN COMPARED WITH ECG OF 09-MAR-2016 13:48, NO SIGNIFICANT CHANGE WAS FOUND Confirmed by CYNTHIA SCHAFER MD ([id number]) on 03/09/2016 6:21:20 PM Referred By: Aaliyah DUDLEY Confirmed By:CYNTHIA SCHAFER MD
--- NOTE | 2016-03-09 18:52 | CONSULT ---
Consult Consult Specialty:: GI Referred by:: Dr Boland Reason for Consultation:: Diarrhea, GERD - History of Present Illness History of Present Illness: 60 M with h/o CAD, A. fib, sleep apnea, HLD, MT, GERD, stents placement x 14, S/ P ablation of AF, admitted with dyspnea which accelerated over the past several hours prior to admission. At that time, had orthopnea as well. He is on multiple AC regimen including ASA, Effient and coumadin. I am called to evaluate epigastric pain and nausea. That problem is much improved at this time. He was started on a PPI with resolution. Earlier today, he had hypotension likely med-related. - History Source History Provided By: Patient, Medical Record Limitations to Obtaining History: No Limitations - Past Medical History Cardio/Vascular: Yes: AFIB, CAD, CHF (chronic diastolic), HTN, Hyperlipdemia, MT , Other (SVT) Pulmonary: Yes: COPD, Sleep Apnea Gastrointestinal: Yes: GERD Psych: Yes: Anxiety Musculoskeletal: Yes: Chronic low back pain - Past Surgical History Past Surgical History: Yes: Stent (Multiple cardiac stents; pulmonary vein ablation Rx x 2 for AF/flutter) - Alcohol/Substance Use Hx Alcohol Use: No History of Substance Use: reports: None - Smoking History Smoking history: Never smoked Have you smoked in the past 12 months: No Aproximately how many cigarettes per day: 0 If you are a former smoker, when did you quit?: 1990 - Social History Usual Living Arrangement: With Spouse ADL: Independent History of Recent Travel: No Home Medications - Allergies Allergies/Adverse Reactions: Allergies Allergy/AdvReac Type Severity Reaction Status Date / Time levofloxacin [From Levaquin] Allergy Intermediate Swelling Verified 03/08/16 04: 35 - Home Medications Home Medications: Ambulatory Orders Aspirin [ASA -] 81 mg PO DAILY 02/13/13 Furosemide [Lasix -] 40 mg PO BID 02/13/13 Lisinopril [Prinivil] 10 mg PO DAILY 02/13/13 Lubiprostone [Amitiza] 24 mcg PO DAILY 02/13/13 Oxycodone HCl 30 mg PO DAILY PRN 02/13/13 Oxycodone HCl/Acetaminophen [Percocet 10-650 mg Tablet] 1 - 2 tab PO Q6H PRN Prasugrel HCl [Effient] 5 mg PO DAILY 02/13/13 Pravastatin Sodium [Pravachol -] 80 mg PO HS 02/13/13 Ranolazine [Ranexa -] 1,000 mg PO BID 02/13/13 Fenofibrate 160 mg PO DAILY 09/30/13 [place]-3 Acid Ethyl Esters [Lovaza -] 1 gm PO BID 09/30/13 Roflumilast [Daliresp] 500 mcg PO DAILY 09/30/13 Dexlansoprazole [Dexilant] 60 mg PO BID 12/01/13 Warfarin Sodium [Coumadin] 4 mg PO HS 12/10/13 Albuterol Sulfate [Proair Hfa -] 1 - 2 inh PO QID PRN 01/16/14 Linaclotide [Linzess] 145 mcg PO DAILY 01/16/14 Amiodarone HCl [Cordarone -] 200 mg PO DAILY 04/19/14 Tamsulosin HCl [Flomax] 0.4 mg PO DAILY 02/04/15 Beclomethasone Dipropionate [Qvar] 2 inh IH BID 03/08/16 Diltiazem HCl [Diltiazem ER] 120 mg PO DAILY 03/08/16 Famotidine [Pepcid -] 40 mg PO DAILY 03/08/16 Isosorbide Mononitrate [IMDUR 120mg [STRENGTH NOT CARRIED]] 1 tab PO DAILY 03/08 Metoprolol Tartrate 100 mg PO DAILY 03/08/16 Pantoprazole Sodium [Protonix -] 40 mg PO DAILY 03/08/16 Ranitidine [Zantac -] 150 mg PO ACDIN 03/08/16 Roflumilast [Daliresp -] 500 mcg PO DAILY 03/08/16 Tiotropium Br/Olodaterol HCl [Stiolto Respimat Inhal [place]] 2.5 mcg IH BID 03/08 Physical Exam-GI Vital Signs: Vital Signs Temperature 98.2 F 03/09/16 18:22 Pulse Rate 61 03/09/16 18:22 Respiratory Rate 23 03/09/16 18:22 Blood Pressure 96/40 03/09/16 18:22 O2 Sat by Pulse Oximetry (%) 94 L 03/09/16 15:32 Constitutional: Yes: Well Nourished, Obese HENT: Yes: Normocephalic Neck: Yes: Supple Cardiovascular: Yes: Regular Rate and Rhythm Respiratory: Yes: CTA Bilaterally Gastrointestinal Inspection: Yes: Other ...Auscultate: Yes: Normoactive Bowel Sounds ...Palpate: Yes: Soft, Tenderness, Epigastium Labs: CBC, BMP 03/09/16 14:00 03/09/16 14:00 INR, PTT INR 2.52 (0.82-1.09) H 03/09/16 14:00 Hepatic Panel Total Bilirubin 0.7 mg/dL (0.2-1.0) D 03/09/16 14:00 AST 21 U/L (15-37) 03/09/16 14:00 ALT 31 U/L (12-78) 03/09/16 14:00 Alkaline Phosphatase 43 U/L (45-117) L 03/09/16 14:00 Albumin 3.5 g/dl (3.4-5.0) 03/09/16 14:00 Assessment/Plan 60 M with history as above, now with abdominal pain. Likely related to underlying condition and meds. Responding to PPI-states he takes PPI at home. Will check lipase-r/o pancreatic pain LFTs normal Change diet to low residue
[2016-03-09 20:08] LABS: MCH 26.1 pg (25.7-33.7); MCHC 32.4 g/dl (32.0-35.9); MEAN CELL VOLUME 80.5 fl (80-96); MEAN PLT VOLUME 7.6 fl (7.5-11.1); PLATELET COUNT 261 K/MM3 (134-434); RDW 15.3 % (11.9-15.9); WHITE BLOOD COUNT 7.9 K/mm3 (4.0-10.0)
[2016-03-09 20:41] LABS: TROPONIN I 0.15 ng/ml (0.00-0.05)
[2016-03-09] MEDS ORDERED: RANOLAZINE E.R. 500 MG TABLET (FP) ONE (21:02)
[2016-03-09] MEDS: ATORVASTATIN CA 20 MG TABLET (FP) PO SCH (21:09)
[2016-03-09] MEDS: BUDESONIDE/FORMETEROL FUMARATE 80/4.5 mcg INHALER IH SCH (21:10)
[2016-03-09] MEDS ORDERED: BUDESONIDE/FORMETEROL FUMARATE 80/4.5 mcg INHALER IH SCH (22:00)
[2016-03-09] MEDS ORDERED: LISINOPRIL 10 MG TABLET (FP) PO SCH (22:00)
--- NOTE | 2016-03-09 22:10 | CONSULT ---
Consult - text type - Consultation Consultation Note: PULM/CCM Pt seen and examined in the ICU CC; hypotension HPI:60 M with h/o CAD, Atrial fib S/P ablation at [facility], sleep apnea, HLD, CT, GERD, stents placement x 14, intitially admitted with ACS/NSTEMI, GI complaints. He was been treated by cardiology and seen by GI. Serial troponins were downtrending and GI complaints were resolving. This morning pt was given all of his anti-HTN at once, despite normally being staggered. A rapid response was called shortly after these meds were given for hypotensionm SBP in 70s. In that settnig he was transferred to ICU for further care. He was given volume, anti-htn were held and BP rebounded to base line. There was no associated cardiac instability or apparent distress. Cr did bump from 1.4-- 2.1. BNP and trop remained largely stable. In ICU pt was afebrile, awake, alert, and without distress. Plan for O/n monitoring and return to floor in am - Past Medical History Cardiovascular: Yes: AFIB, CAD, CHF (chronic diastolic), HTN, Hyperlipdemia, CT , Other (SVT) Pulmonary: Yes: COPD, Sleep Apnea Gastrointestinal: Yes: GERD Psych: Yes: Anxiety Musculoskeletal: Yes: Chronic low back pain - Past Surgical History Past Surgical History: Yes: Stent (Multiple cardiac stents; pulmonary vein ablation Rx x 2 for AF/flutter) - Smoking History Smoking history: Never smoked Have you smoked in the past 12 months: No Aproximately how many cigarettes per day: 0 If you are a former smoker, when did you quit?: 1990 - Alcohol/Substance Use Hx Alcohol Use: No History of Substance Use: reports: None - Social History ADL: Independent History of Recent Travel: No REVIEW OF SYSTEMS: CONSTITUTIONAL: Absent: fever, chills, diaphoresis, generalized weakness, malaise, loss of appetite, weight change HEENT: Absent: rhinorrhea, nasal congestion, throat pain, throat swelling, difficulty swallowing, mouth swelling, ear pain, eye pain, visual changes CARDIOVASCULAR: Absent: chest pain, syncope, palpitations, irregular heart rate, lightheadedness , peripheral edema RESPIRATORY: Absent: cough, shortness of breath, dyspnea with exertion, orthopnea, wheezing, stridor, hemoptysis GASTROINTESTINAL:(+) abdominal pain Absent: abdominal distension, nausea, vomiting, diarrhea, constipation, melena , hematochezia GENITOURINARY: Absent: dysuria, frequency, urgency, hesitancy, hematuria, flank pain, genital pain MUSCULOSKELETAL: (+) back pain-chronic Absent: myalgia, arthralgia, joint swelling,, neck pain SKIN: Absent: rash, itching, pallor HEMATOLOGIC/IMMUNOLOGIC: Absent: easy bleeding, easy bruising, lymphadenopathy, frequent infections ENDOCRINE: Absent: unexplained weight gain, unexplained weight loss, heat intolerance, cold intolerance NEUROLOGIC: Absent: headache, focal weakness or paresthesias, dizziness, unsteady gait, seizure, mental status changes, bladder or bowel incontinence PSYCHIATRIC: Absent: anxiety, depression, suicidal or homicidal ideation, hallucinations. Ambulatory Orders Aspirin [ASA -] 81 mg PO DAILY 02/13/13 Furosemide [Lasix -] 40 mg PO BID 02/13/13 Lisinopril [Prinivil] 10 mg PO DAILY 02/13/13 Lubiprostone [Amitiza] 24 mcg PO DAILY 02/13/13 Oxycodone HCl 30 mg PO DAILY PRN 02/13/13 Oxycodone HCl/Acetaminophen [Percocet 10-650 mg Tablet] 1 - 2 tab PO Q6H PRN Prasugrel HCl [Effient] 5 mg PO DAILY 02/13/13 Pravastatin Sodium [Pravachol -] 80 mg PO HS 02/13/13 Ranolazine [Ranexa -] 1,000 mg PO BID 02/13/13 Fenofibrate 160 mg PO DAILY 09/30/13 [place]-3 Acid Ethyl Esters [Lovaza -] 1 gm PO BID 09/30/13 Roflumilast [Daliresp] 500 mcg PO DAILY 09/30/13 Dexlansoprazole [Dexilant] 60 mg PO BID 12/01/13 Warfarin Sodium [Coumadin] 4 mg PO HS 12/10/13 Albuterol Sulfate [Proair Hfa -] 1 - 2 inh PO QID PRN 01/16/14 Linaclotide [Linzess] 145 mcg PO DAILY 01/16/14 Amiodarone HCl [Cordarone -] 200 mg PO DAILY 04/19/14 Tamsulosin HCl [Flomax] 0.4 mg PO DAILY 02/04/15 Beclomethasone Dipropionate [Qvar] 2 inh IH BID 03/08/16 Diltiazem HCl [Diltiazem ER] 120 mg PO DAILY 03/08/16 Famotidine [Pepcid -] 40 mg PO DAILY 03/08/16 Isosorbide Mononitrate [IMDUR 120mg [STRENGTH NOT CARRIED]] 1 tab PO DAILY 03/08 Metoprolol Tartrate 100 mg PO DAILY 03/08/16 Pantoprazole Sodium [Protonix -] 40 mg PO DAILY 03/08/16 Ranitidine [Zantac -] 150 mg PO ACDIN 03/08/16 Roflumilast [Daliresp -] 500 mcg PO DAILY 03/08/16 Tiotropium Br/Olodaterol HCl [Stiolto Respimat Inhal [place]] 2.5 mcg IH BID 03/08 Current Medications Acetaminophen (Tylenol -) 650 mg PO Q6H PRN PRN Reason: PAIN Al Hydroxide/Mg Hydroxide (Mylanta Oral Suspension -) 30 ml PO Q6H PRN PRN Reason: DYSPEPSIA Albuterol Sulfate (Ventolin 0.083% Nebulizer Soln -) 1 amp NEB Q4H PRN PRN Reason: SHORT OF BREATH/WHEEZING Amiodarone HCl (Cordarone -) 200 mg PO DAILY [facility] Aspirin (Asa -) 81 mg PO DAILY [facility] Atorvastatin Calcium (Lipitor -) 20 mg PO HS [facility] Last Admin: 03/09/16 21:09 Dose: 20 mg Budesonide/Formoterol Fumarate (Symbicort 80/4.5mcg -) 2 puff IH BID [facility] Last Admin: 03/09/16 21:10 Dose: 2 puff Diltiazem HCl (Cardizem Cd -) 120 mg PO DAILY [facility] Fenofibric Acid (Trilipix -) 135 mg PO DAILY [facility] Pantoprazole Sodium (Protonix 40mg Ivpb (Pre-Docked)) 100 mls @ 200 mls/hr IVPB DAILY [facility] Isosorbide Mononitrate (Imdur -) 120 mg PO DAILY [facility] Metoclopramide HCl (Reglan Injection -) 10 mg IVPB Q8H PRN PRN Reason: NAUSEA AND/OR VOMITING Metoprolol Tartrate (Lopressor -) 100 mg PO DAILY [facility] Non-Formulary Medication (Linaclotide [Linzess]) 145 mcg PO DAILY [facility] Non-Formulary Medication (Lubiprostone [Amitiza]) 24 mcg PO DAILY [facility] [id number] Ethyl Esters (Lovaza -) 1 gm PO BID [facility] Oxycodone HCl (Roxicodone -) 10 mg PO Q6H PRN PRN Reason: PAIN Last Admin: 03/09/16 19:22 Dose: 10 mg Prasugrel (Effient -) 5 mg PO DAILY [facility] Ranitidine HCl (Zantac -) 300 mg PO DAILY [facility] Ranolazine (Ranexa -) 1,000 mg PO BID [facility] Last Admin: 03/09/16 21:10 Dose: 1,000 mg Roflumilast (Daliresp -) 500 mcg PO DAILY [facility] Tamsulosin HCl (Flomax -) 0.4 mg PO DAILY@0830 [facility] Tiotropium [place] (Spiriva -) 1 puff IH DAILY [facility] Vital Signs Temp 98.2 F 03/09/16 18:22 Pulse 63 03/09/16 19:23 Resp 23 03/09/16 19:23 BP 90/46 03/09/16 19:23 Pulse Ox 94 L 03/09/16 15:32 Intake & Output 03/08/16 03/09/16 03/09/16 23:59 11:59 23:59 Intake Total 370 250 Balance 370 250 Weight 111.13 kg 112.672 kg Intake: IV 10 10 SALINE LOCK 10 10 Oral 360 240 Other: Voiding Method Urinal Toilet Urinal # Unmeasured Voids Void 2 2 Bowel Movement No Height 5 ft 6 in Body Mass Index (BMI) 39.5 Weight Measurement Method Standing Scale CBC, BMP 03/09/16 19:30 03/09/16 14:00 Troponin, BNP 03/09/16 03/09/16 03/09/16 05:35 05:35 14:00 Troponin I 0.16 H D Cancelled 0.17 H B-Natriuretic Peptide 03/09/16 03/09/16 19:30 19:30 Troponin I 0.15 H B-Natriuretic Peptide 481.99 H EKG: sinus smooth, 1degree block. bivasicular block. unchanged from previous. CXR: without infiltrate, Pulm edema, or pneumothorax. A/ 60 y/o man with extensive cardiac hx, presented 48hrs ago with ACS/NSTEMI, was doing well and due to transfer for possible PCI but had rapid response activation this afternoon for hypotension related to medication administration now much improved P/ -hold anti-htn tonight -f/u repeat Cr in am -restart meds in staggered fashion as per [employer] -still being considered for transfer for Cath -cont antiplt therapy and Anti coagulation -monitor in ICU overnight. tele in Am Yordy Hwang ACNP [id number]
[2016-03-10] MEDS: oxyCODONE HCL 5 MG TABLET PO PRN ×4 (01:28→21:44)
[2016-03-10] MEDS: ACETAMINOPHEN 325 MG TABLET (FP) PO PRN ×3 (01:29→16:17)
[2016-03-10] MEDS ORDERED: FUROSEMIDE 40 MG TABLET (FP) PO SCH (06:00)
[2016-03-10 06:20] LABS: BASOPHIL 0.4 % (0-2.0); MCH 25.9 pg (25.7-33.7); MCHC 32.2 g/dl (32.0-35.9); MEAN CELL VOLUME 80.6 fl (80-96); NEUTROPHILS 65.2 % (42.8-82.8); PLATELET COUNT 245 K/MM3 (134-434); RDW 15.4 % (11.9-15.9); WHITE BLOOD COUNT 6.9 K/mm3 (4.0-10.0)
[2016-03-10 06:32] LABS: INR 2.71 (0.82-1.09); PROTHROMBIN TIME (PATIENT) 30.4 SEC (9.98-11.88)
[2016-03-10 07:12] LABS: CALCIUM 8.9 mg/dL (8.5-10.1); CREATININE 2.2 mg/dL (0.7-1.3)
[2016-03-10 07:13] LABS: ALBUMIN 3.4 g/dl (3.4-5.0); BILIRUBIN,DIRECT 0.2 mg/dL (0.0-0.2)
[2016-03-10 07:17] LABS: BILIRUBIN,TOTAL 0.4 mg/dL (0.2-1.0); TOT PROT 6.7 g/dl (6.4-8.2)
[2016-03-10 07:31] LABS: TROPONIN I 0.11 ng/ml (0.00-0.05)
[2016-03-10] MEDS: TAMSULOSIN HCL 0.4 MG CAP.ER.24H (FP) PO SCH (08:22)
[2016-03-10] MEDS ORDERED: RANOLAZINE E.R. 500 MG TABLET (FP) ONE (09:11)
[2016-03-10] MEDS ORDERED: PT OWN MED DRAWER 7, Y5N ONE (09:12)
--- NOTE | 2016-03-10 09:39 | PN ---
Progress Note, Physician History of Present Illness: EVENTS NOTED HAD AN EPISODE OF HYPOTENSION AND ABDOMINAL PAIN--NOW RESOLVED CE NO SIGNIFICANT CHANGE SEEN BY GI AND CARDIO - Current Medication List Current Medications: Active Medications Acetaminophen (Tylenol -) 650 mg PO Q6H PRN PRN Reason: PAIN Last Admin: 03/10/16 01:29 Dose: 650 mg Al Hydroxide/Mg Hydroxide (Mylanta Oral Suspension -) 30 ml PO Q6H PRN PRN Reason: DYSPEPSIA Albuterol Sulfate (Ventolin 0.083% Nebulizer Soln -) 1 amp NEB Q4H PRN PRN Reason: SHORT OF BREATH/WHEEZING Last Admin: 03/09/16 22:20 Dose: 1 amp Amiodarone HCl (Cordarone -) 200 mg PO DAILY [facility] Aspirin (Asa -) 81 mg PO DAILY [facility] Atorvastatin Calcium (Lipitor -) 20 mg PO HS [facility] Last Admin: 03/09/16 21:09 Dose: 20 mg Budesonide/Formoterol Fumarate (Symbicort 80/4.5mcg -) 2 puff IH BID [facility] Last Admin: 03/09/16 21:10 Dose: 2 puff Diltiazem HCl (Cardizem Cd -) 120 mg PO HS [facility] Fenofibric Acid (Trilipix -) 135 mg PO DAILY [facility] Pantoprazole Sodium (Protonix 40mg Ivpb (Pre-Docked)) 100 mls @ 200 mls/hr IVPB DAILY [facility] Potassium Chloride 10 meq/ (Sodium Chloride) 1,005 mls @ 75 mls/hr IVPB Q13H [facility] Isosorbide Mononitrate (Imdur -) 120 mg PO DAILY [facility] Metoclopramide HCl (Reglan Injection -) 10 mg IVPB Q8H PRN PRN Reason: NAUSEA AND/OR VOMITING Metoprolol Succinate (Toprol Xl -) 50 mg PO BID [facility] Non-Formulary Medication (Linaclotide [Linzess]) 145 mcg PO DAILY [facility] Non-Formulary Medication (Lubiprostone [Amitiza]) 24 mcg PO DAILY [facility] [id number] Ethyl Esters (Lovaza -) 1 gm PO BID [facility] Last Admin: 03/09/16 22:23 Dose: 1 gm Oxycodone HCl (Roxicodone -) 10 mg PO Q6H PRN PRN Reason: PAIN Last Admin: 03/10/16 01:28 Dose: 10 mg Prasugrel (Effient -) 5 mg PO DAILY [facility] Ranitidine HCl (Zantac -) 300 mg PO DAILY [facility] Ranolazine (Ranexa -) 1,000 mg PO BID [facility] Last Admin: 03/09/16 21:10 Dose: 1,000 mg Roflumilast (Daliresp -) 500 mcg PO DAILY [facility] Tamsulosin HCl (Flomax -) 0.4 mg PO DAILY@0830 [facility] Last Admin: 03/10/16 08:22 Dose: 0.4 mg Tiotropium [place] (Spiriva -) 1 puff IH DAILY [facility] - Objective Vital Signs: Vital Signs Temperature 98.4 F 03/10/16 02:00 Pulse Rate 79 03/10/16 08:51 Respiratory Rate 20 03/10/16 08:51 Blood Pressure 120/77 03/10/16 08:51 O2 Sat by Pulse Oximetry (%) 98 03/10/16 00:28 Cardiovascular: Yes: S1, S2 Respiratory: Yes: Regular, CTA Bilaterally Gastrointestinal: Yes: Normal Bowel Sounds, Soft. No: Tenderness Edema: No Labs: CBC, BMP 03/10/16 05:15 03/10/16 05:15 INR, PTT INR 2.71 (0.82-1.09) H 03/10/16 05:15 Problem List - Problems (1) Chest pain Assessment/Plan: PAIN FREE NOW CE POSITIVE--FOLLOW TREND CONTINUE WITH MEDS CARDIO CONSULT NOTED--WILL DISCUSS CATH--NOW CR 2.1 LAST STENT 2013 COUMADIN/EFFIENT/ASA ON METOPROLOL/CRADIZEM AND IMDUR Code(s): R07.9 - CHEST PAIN, UNSPECIFIED (2) Elevated troponin Assessment/Plan: FOLLOW LABS--POSSIBLE CATH Code(s): R79.89 - OTHER SPECIFIED ABNORMAL FINDINGS OF BLOOD CHEMISTRY (3) Dyspnea Assessment/Plan: CONBO--COPD AND CAD PULM AND CARDIO Code(s): R06.00 - DYSPNEA, UNSPECIFIED Qualifiers: Dyspnea type: orthopnea Qualified Code(s): R06.01 - Orthopnea (4) Atrial fibrillation Assessment/Plan: RATE CONTROLLED ON AMIO AND AC Code(s): I48.91 - UNSPECIFIED ATRIAL FIBRILLATION (5) COPD (chronic obstructive pulmonary disease) Assessment/Plan: NEBS DALIRESP Code(s): J44.9 - CHRONIC OBSTRUCTIVE PULMONARY DISEASE, UNSPECIFIED (6) History of coronary artery stent placement Assessment/Plan: ABOVE Code(s): Z95.5 - PRESENCE OF CORONARY ANGIOPLASTY IMPLANT AND GRAFT (7) Hypotension Assessment/Plan: MEDS ADJUSTED 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
[2016-03-10] MEDS: FENOFIBRIC ACID 135 MG CAP PO SCH (09:53)
[2016-03-10] MEDS: RANITIDINE HCL 150 MG TABLET (FP) PO SCH (09:53)
[2016-03-10] MEDS: OMEGA-3 ACID ETHYL ESTERS (FATTY-ACIDS) 1 GM CAPSULE (FP) PO SCH ×2 (09:53→21:38)
[2016-03-10] MEDS: ASPIRIN 81 MG CHEWABLE TABLETS PO SCH (09:53)
[2016-03-10] MEDS: RANOLAZINE E.R. 1,000 MG TABLET (FP) PO SCH ×2 (09:54→21:39)
[2016-03-10] MEDS: ROFLUMILAST 500 MCG TABLET PO SCH (09:54)
[2016-03-10] MEDS: AMIODARONE HCL 200 MG TABLET (FP) PO SCH (09:54)
[2016-03-10] MEDS: METOPROLOL SUCCINATE 50 MG TAB.SR.24H (FP) PO SCH ×2 (09:54→21:41)
[2016-03-10] MEDS: PANTOPRAZOLE SODIUM 100 ML IVPB SCH (09:54)
[2016-03-10] MEDS: PRASUGREL HCL 5 MG TAB PO SCH (09:54)
[2016-03-10] MEDS ORDERED: PATIENT'S OWN MEDICATION (NON-FORMULARY) (Linaclotide [Linzess] 145 MCG) PO SCH (10:00)
[2016-03-10] MEDS ORDERED: METOPROLOL SUCCINATE 100 MG TAB.SR.24H (FP) PO SCH (10:00)
[2016-03-10] MEDS ORDERED: PATIENT'S OWN MEDICATION (NON-FORMULARY) (Lubiprostone [Amitiza] 24 MCG) PO SCH (10:00)
[2016-03-10] MEDS ORDERED: METOPROLOL TARTRATE 50 MG TABLET (FP) PO SCH (10:00)
[2016-03-10] MEDS: TIOTROPIUM BROMIDE 18 MCG/INH (DEVICE W/ 5 CAPSULES) IH SCH (10:04)
[2016-03-10] MEDS: BUDESONIDE/FORMETEROL FUMARATE 80/4.5 mcg INHALER IH SCH ×2 (10:05→22:21)
[2016-03-10] MEDS: POTASSIUM CHLORIDE 10 MEQ in SODIUM CHLORIDE 0.45% 1,000 ML IVPB SCH (10:34)
[2016-03-10] MEDS: ISOSORBIDE MONONITRATE 60 MG TAB.SR.24H (FP) PO SCH (11:05)
--- NOTE | 2016-03-10 11:08 | CONS ---
DATE OF CONSULTATION: 03/09/16 REFERRING PHYSICIAN: Mike Boland MD HISTORY: The patient is a 60-year-old white male known to me from previous hospitalization as well as office followup. Past medical history of ASHD status post CABG, status post multiple stents, hypertension, obstructive sleep apnea on AutoPap, SVT, atrial fibrillation on anticoagulation, hyperlipidemia, LV diastolic dysfunction, COPD, admitted to [facility] on March 08 with complaint of increasing shortness of breath, dyspnea on exertion, and orthopnea. The patient was doing well until a couple days prior to admission. He started noticing increasing shortness of breath and orthopnea. He also complained of some chest pressure, denied any nausea, vomiting, diaphoresis. On the night of admission his symptoms worsened, at which time he presented to the emergency room. In the ER he was noted to have elevated TNI, at which time he was transferred up to medical floor for further management. The patient denies any nausea, vomiting, diaphoresis. Denies any hemoptysis, denies any cough. He has a history of recently diagnosed obstructive sleep apnea but is waiting for his machine. He is not on his BiPAP yet secondary to insurance company approval for the machine. For the past 2 days there is no history of URI symptoms. There is no hemoptysis. There is mild cough. He has stated for the past week or so he started noticing increasing shortness of breath with minimal exertion as well as progressive orthopnea, chest pressure. PAST MEDICAL HISTORY: Again includes ASHD status post CABG, status post multiple stents, atrial fibrillation; congestive heart failure, diastolic; hypertension, hyperlipidemia, SVT, obstructive sleep apnea, COPD, chronic low back pain. SOCIAL HISTORY: History of tobacco use, quit many years ago. No occupational exposures. CURRENT MEDICATIONS: Include , Qvar, Linzess, Amitiza, Stiolto, Flomax, Tylenol, Prinivil, Cordarone, Coumadin, Lovaza, Lopressor, Cardizem, Ranexa, Trilipix, Zantac, Lipitor, Lasix, Imdur, aspirin, Roxicodone,, Protonix, and Daliresp. REVIEW OF SYSTEMS: Positive orthopnea, positive dyspnea, no chest pain, positive chest pressure, no cough, no hemoptysis. No abdominal pain. PHYSICAL EXAMINATION: General: The patient is a well-developed, well-nourished male, awake, alert, currently in no acute distress. Vital Signs: He is currently afebrile. Heart rate is 84, blood pressure 152/70 , respiratory rate 16. O2 saturation is 96% on 2 L. HEENT: Exam is normocephalic, atraumatic. Neck: Supple. Heart: Irregularly irregular with normal S1, S2. Chest: Clear. Abdomen: Soft. Bowel sounds positive. Extremities: No cyanosis or edema. LABORATORY: WBC 6.8, hemoglobin 12.3, hematocrit 36.8 with a platelet count of 238,000. INR is 2.43. Chemistries: BUN 23, creatinine 1.3. Troponin is 0.32 highest, last being 0.16. Chest x-ray reveals cardiomegaly, mild pulmonary congestion. IMPRESSION: 1. Dyspnea, orthopnea, most likely secondary to cardiac etiology, rule out arteriosclerotic heart disease. 2. History of chronic obstructive pulmonary disease. 3. Obstructive sleep apnea. 4. Atrial fibrillation status post cardioversion , supraventricular tachycardia. 5. Diabetes. PLAN: Further cardiac workup as per Cardiology. Supplemental O2. BiPAP at night, inhaled bronchodilators, anticoagulation. MICHAEL MIRANDA M.D. [id number] MTDD
--- NOTE | 2016-03-10 11:25 | CONSULT ---
Consult Consult Specialty:: Nephrology Reason for Consultation:: TRACY - History of Present Illness Chief Complaint: shortness of breath History of Present Illness: Pt is a 60 year old male with pmhx of CAD, A-fib, CAD, hyperlipidema, 14 cardiac stents, GERD, and obesity who initially presented with shortness of breath. He had a hypotensive episode in the medical [place] and was transferred to the ICU. I was called to evaluate him for TRACY. He also has elevated troponins and is scheduled for cardiac cath. He is awake and alert. He denies chest pain or shortness of breath. His blood pressure is improved. He is making urine. He denies history of CKD. He denies nsaid use. He denies dysuria or hematuria. - History Source History Provided By: Patient, Medical Record - Past Medical History Cardio/Vascular: Yes: AFIB, CAD, CHF (chronic diastolic), HTN, Hyperlipdemia, HI , Other (SVT) Pulmonary: Yes: COPD, Sleep Apnea Gastrointestinal: Yes: GERD Psych: Yes: Anxiety Musculoskeletal: Yes: Chronic low back pain - Past Surgical History Past Surgical History: Yes: Stent (Multiple cardiac stents; pulmonary vein ablation Rx x 2 for AF/flutter) - Alcohol/Substance Use Hx Alcohol Use: No History of Substance Use: reports: None - Smoking History Smoking history: Never smoked Have you smoked in the past 12 months: No Aproximately how many cigarettes per day: 0 If you are a former smoker, when did you quit?: 1990 - Social History Usual Living Arrangement: With Spouse ADL: Independent History of Recent Travel: No Home Medications - Allergies Allergies/Adverse Reactions: Allergies Allergy/AdvReac Type Severity Reaction Status Date / Time levofloxacin [From Levaquin] Allergy Intermediate Swelling Verified 03/08/16 04: 35 - Home Medications Home Medications: Ambulatory Orders Aspirin [ASA -] 81 mg PO DAILY 02/13/13 Furosemide [Lasix -] 40 mg PO BID 02/13/13 Lisinopril [Prinivil] 10 mg PO DAILY 02/13/13 Lubiprostone [Amitiza] 24 mcg PO DAILY 02/13/13 Oxycodone HCl 30 mg PO DAILY PRN 02/13/13 Oxycodone HCl/Acetaminophen [Percocet 10-650 mg Tablet] 1 - 2 tab PO Q6H PRN Prasugrel HCl [Effient] 5 mg PO DAILY 02/13/13 Pravastatin Sodium [Pravachol -] 80 mg PO HS 02/13/13 Ranolazine [Ranexa -] 1,000 mg PO BID 02/13/13 Fenofibrate 160 mg PO DAILY 09/30/13 [place]-3 Acid Ethyl Esters [Lovaza -] 1 gm PO BID 09/30/13 Roflumilast [Daliresp] 500 mcg PO DAILY 09/30/13 Dexlansoprazole [Dexilant] 60 mg PO BID 12/01/13 Warfarin Sodium [Coumadin] 4 mg PO HS 12/10/13 Albuterol Sulfate [Proair Hfa -] 1 - 2 inh PO QID PRN 01/16/14 Linaclotide [Linzess] 145 mcg PO DAILY 01/16/14 Amiodarone HCl [Cordarone -] 200 mg PO DAILY 04/19/14 Tamsulosin HCl [Flomax] 0.4 mg PO DAILY 02/04/15 Beclomethasone Dipropionate [Qvar] 2 inh IH BID 03/08/16 Diltiazem HCl [Diltiazem ER] 120 mg PO DAILY 03/08/16 Famotidine [Pepcid -] 40 mg PO DAILY 03/08/16 Isosorbide Mononitrate [IMDUR 120mg [STRENGTH NOT CARRIED]] 1 tab PO DAILY 03/08 Metoprolol Tartrate 100 mg PO DAILY 03/08/16 Pantoprazole Sodium [Protonix -] 40 mg PO DAILY 03/08/16 Ranitidine [Zantac -] 150 mg PO ACDIN 03/08/16 Roflumilast [Daliresp -] 500 mcg PO DAILY 03/08/16 Tiotropium Br/Olodaterol HCl [Stiolto Respimat Inhal [place]] 2.5 mcg IH BID 03/08 Family Disease History - Family Disease History Other Family History: DM, HTN obesity Review of Systems - Review of Systems Constitutional: reports: No Symptoms Eyes: reports: No Symptoms HENT: reports: No Symptoms Neck: reports: No Symptoms Cardiovascular: reports: No Symptoms Respiratory: reports: SOB on Exertion Gastrointestinal: reports: No Symptoms Genitourinary: reports: No Symptoms Musculoskeletal: reports: No Symptoms Integumentary: reports: No Symptoms Neurological: reports: No Symptoms Endocrine: reports: No Symptoms Hematology/Lymphatic: reports: No Symptoms Physical Exam Vital Signs: Vital Signs Temperature 98.8 F 03/10/16 09:42 Pulse Rate 88 03/10/16 10:18 Respiratory Rate 20 03/10/16 09:42 Blood Pressure 147/73 03/10/16 09:42 O2 Sat by Pulse Oximetry (%) 94 L 03/10/16 10:18 Constitutional: Yes: Calm Eyes: Yes: Conjunctiva Clear HENT: Yes: Atraumatic Cardiovascular: Yes: S1, S2 Respiratory: Yes: CTA Bilaterally Gastrointestinal: Yes: Normal Bowel Sounds, Soft Renal/: Yes: WNL Musculoskeletal: Yes: WNL Edema: No Neurological: Yes: Oriented Psychiatric: Yes: Oriented Labs: CBC, BMP 03/10/16 05:15 03/10/16 05:15 Laboratory Tests 12/20/13 01/17/14 01/18/14 06:00 05:50 05:35 Sodium Creatinine 1.1 D 1.0 1.2 04/19/14 05/30/14 03/08/16 22:30 05:00 03:29 Sodium Creatinine 1.0 1.0 1.2 03/09/16 03/09/16 03/10/16 05:35 14:00 05:15 Sodium 133 L Creatinine 1.3 2.1 H D 2.2 H Imaging - Results Chest X-ray: Report Reviewed Problem List - Problems (1) TRACY (acute kidney injury) Code(s): N17.9 - ACUTE KIDNEY FAILURE, UNSPECIFIED (2) Chest pain Code(s): R07.9 - CHEST PAIN, UNSPECIFIED (3) Dyspnea Code(s): R06.00 - DYSPNEA, UNSPECIFIED Qualifiers: Dyspnea type: orthopnea Qualified Code(s): R06.01 - Orthopnea (4) Elevated troponin Code(s): R79.89 - OTHER SPECIFIED ABNORMAL FINDINGS OF BLOOD CHEMISTRY (5) Hypotension Code(s): I95.9 - HYPOTENSION, UNSPECIFIED (6) CAD (coronary artery disease) Code(s): I25.10 - ATHSCL HEART DISEASE OF [place] CORONARY ARTERY W/O ANG PCTRS (7) COPD (chronic obstructive pulmonary disease) Code(s): J44.9 - CHRONIC OBSTRUCTIVE PULMONARY DISEASE, UNSPECIFIED (8) Hyperlipidemia Code(s): E78.5 - HYPERLIPIDEMIA, UNSPECIFIED (9) Hypertension Code(s): I10 - ESSENTIAL (PRIMARY) HYPERTENSION Assessment/Plan Current Medications Generic Name Dose Route Start Last Admin Trade Name Freq PRN Reason Stop Dose Admin Acetaminophen 650 mg 03/09/16 15:50 03/10/16 09:36 Tylenol - PO 650 mg Q6H PRN Administration PAIN Al Hydroxide/Mg Hydroxide 30 ml 03/09/16 17:15 Mylanta Oral Suspension - PO Q6H PRN DYSPEPSIA Albuterol Sulfate 1 amp 03/09/16 15:50 03/09/16 22:20 Ventolin 0.083% Nebulizer Soln - NEB 1 amp Q4H PRN Administration SHORT OF BREATH/WHEEZING Amiodarone HCl 200 mg 03/10/16 10:00 03/10/16 09:54 Cordarone - PO 200 mg DAILY RENY Administration Aspirin 81 mg 03/10/16 10:00 03/10/16 09:53 Asa - PO 81 mg DAILY RENY Administration Atorvastatin Calcium 20 mg 03/09/16 22:00 03/09/16 21:09 Lipitor - PO 20 mg HS RENY Administration Budesonide/Formoterol Fumarate 2 puff 03/09/16 22:00 03/10/16 10:05 Symbicort 80/4.5mcg - IH Not Given BID RENY Diltiazem HCl 120 mg 03/10/16 22:00 Cardizem Cd - PO HS RENY Fenofibric Acid 135 mg 03/10/16 10:00 03/10/16 09:53 Trilipix - PO 135 mg DAILY RENY Administration Pantoprazole Sodium 100 mls @ 200 mls/hr 03/10/16 10:00 03/10/16 09:54 Protonix 40mg Ivpb (Pre-Docked) IVPB 200 mls/hr DAILY RENY Administration Potassium Chloride 10 meq/ 1,005 mls @ 75 mls/hr 03/10/16 10:30 03/10/16 10:34 Sodium Chloride IVPB 75 mls/hr Q13H RENY Administration Isosorbide Mononitrate 120 mg 03/10/16 10:00 03/10/16 11:05 Imdur - PO 120 mg DAILY RENY Administration Metoclopramide HCl 10 mg 03/09/16 15:50 Reglan Injection - IVPB Q8H PRN NAUSEA AND/OR VOMITING Metoprolol Succinate 50 mg 03/10/16 10:00 03/10/16 09:54 Toprol Xl - PO 50 mg BID RENY Administration Non-Formulary Medication 145 mcg 03/10/16 10:00 Linaclotide [Linzess] PO DAILY RENY Non-Formulary Medication 24 mcg 03/10/16 10:00 Lubiprostone [Amitiza] PO DAILY [facility] Ekibz-0-Aggl Ethyl Esters 1 gm 03/09/16 22:00 03/10/16 09:53 Lovaza - PO 1 gm BID RENY Administration Oxycodone HCl 10 mg 03/09/16 15:50 03/10/16 09:36 Roxicodone - PO 10 mg Q6H PRN Administration PAIN Prasugrel 5 mg 03/10/16 10:00 03/10/16 09:54 Effient - PO 5 mg DAILY RENY Administration Ranitidine HCl 300 mg 03/10/16 10:00 03/10/16 09:53 Zantac - PO 300 mg DAILY RENY Administration Ranolazine 1,000 mg 03/09/16 22:00 03/10/16 09:54 Ranexa - PO 1,000 mg BID RENY Administration Roflumilast 500 mcg 03/10/16 10:00 03/10/16 09:54 Daliresp - PO 500 mcg DAILY RENY Administration Tamsulosin HCl 0.4 mg 03/10/16 08:30 03/10/16 08:22 Flomax - PO 0.4 mg DAILY@0830 RENY Administration Tiotropium [place] 1 puff 03/10/16 10:00 03/10/16 10:04 Spiriva - IH Not Given DAILY [facility] Impression 1. TRACY 2. hyponatremia 3. hypotensive episode 4. hx of HTN 5. obesity 6. hyperlipidemia 7. CAD 8. elevated troponin 9. COPD 10. a-fib 11. 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
--- NOTE | 2016-03-10 12:30 | PN ---
Progress Note, Physician History of Present Illness: 60-year-old male with history of CAD, A. fib, sleep apnea, HLD, MA, GERD, stents placement x 14, cadiac ablation complaining of shortness of breath. States his SOB is chronic but is able to lay down and go to sleep. But tonight when he would try to lay down he had shortness of breath and has been persistent since 10:00 PM. He denies any dizziness, nausea, vomiting, diarrhea. States that about 9:30pm he had some sweating with chest heaviness. States had a cardiology follow up 1 week was uneventful. No recent travel, no leg swelling. He is on anticoagulants - Coumadin, effient and asa Pt also diagnosed with sleep apnea but waiting for insurance for machine - Current Medication List Current Medications: Active Medications Acetaminophen (Tylenol -) 650 mg PO Q6H PRN PRN Reason: PAIN Last Admin: 03/10/16 09:36 Dose: 650 mg Al Hydroxide/Mg Hydroxide (Mylanta Oral Suspension -) 30 ml PO Q6H PRN PRN Reason: DYSPEPSIA Albuterol Sulfate (Ventolin 0.083% Nebulizer Soln -) 1 amp NEB Q4H PRN PRN Reason: SHORT OF BREATH/WHEEZING Last Admin: 03/09/16 22:20 Dose: 1 amp Amiodarone HCl (Cordarone -) 200 mg PO DAILY [facility] Last Admin: 03/10/16 09:54 Dose: 200 mg Aspirin (Asa -) 81 mg PO DAILY [facility] Last Admin: 03/10/16 09:53 Dose: 81 mg Atorvastatin Calcium (Lipitor -) 20 mg PO HS [facility] Last Admin: 03/09/16 21:09 Dose: 20 mg Budesonide/Formoterol Fumarate (Symbicort 80/4.5mcg -) 2 puff IH BID [facility] Last Admin: 03/10/16 10:05 Dose: Not Given Diltiazem HCl (Cardizem Cd -) 120 mg PO HS [facility]ENY Docusate Sodium (Colace -) 300 mg PO HS [facility] Fenofibric Acid (Trilipix -) 135 mg PO DAILY [facility] Last Admin: 03/10/16 09:53 Dose: 135 mg Pantoprazole Sodium (Protonix 40mg Ivpb (Pre-Docked)) 100 mls @ 200 mls/hr IVPB DAILY [facility] Last Admin: 03/10/16 09:54 Dose: 200 mls/hr Potassium Chloride 10 meq/ (Sodium Chloride) 1,005 mls @ 75 mls/hr IVPB Q13H [facility] Last Admin: 03/10/16 10:34 Dose: 75 mls/hr Isosorbide Mononitrate (Imdur -) 120 mg PO DAILY [facility] Last Admin: 03/10/16 11:05 Dose: 120 mg Metoclopramide HCl (Reglan Injection -) 10 mg IVPB Q8H PRN PRN Reason: NAUSEA AND/OR VOMITING Metoprolol Succinate (Toprol Xl -) 50 mg PO BID [facility] Last Admin: 03/10/16 09:54 Dose: 50 mg Non-Formulary Medication (Linaclotide [Linzess]) 145 mcg PO DAILY [facility] Non-Formulary Medication (Lubiprostone [Amitiza]) 24 mcg PO DAILY [facility] [id number]-[id number] Ethyl Esters (Lovaza -) 1 gm PO BID [facility] Last Admin: 03/10/16 09:53 Dose: 1 gm Oxycodone HCl (Roxicodone -) 10 mg PO Q6H PRN PRN Reason: PAIN Last Admin: 03/10/16 09:36 Dose: 10 mg Prasugrel (Effient -) 5 mg PO DAILY [facility] Last Admin: 03/10/16 09:54 Dose: 5 mg Ranitidine HCl (Zantac -) 300 mg PO DAILY [facility] Last Admin: 03/10/16 09:53 Dose: 300 mg Ranolazine (Ranexa -) 1,000 mg PO BID [facility] Last Admin: 03/10/16 09:54 Dose: 1,000 mg Roflumilast (Daliresp -) 500 mcg PO DAILY [facility] Last Admin: 03/10/16 09:54 Dose: 500 mcg Tamsulosin HCl (Flomax -) 0.4 mg PO DAILY@0830 [facility] Last Admin: 03/10/16 08:22 Dose: 0.4 mg Tiotropium [place] (Spiriva -) 1 puff IH DAILY [facility] Last Admin: 03/10/16 10:04 Dose: Not Given - Objective Vital Signs: Vital Signs Temperature 98.8 F 03/10/16 09:42 Pulse Rate 88 03/10/16 10:18 Respiratory Rate 20 03/10/16 09:42 Blood Pressure 147/73 03/10/16 09:42 O2 Sat by Pulse Oximetry (%) 93 L 03/10/16 11:55 Eyes: Yes: WNL, Conjunctiva Clear, EOM Intact HENT: Yes: WNL, Atraumatic, Normocephalic Neck: Yes: WNL, Supple, Trachea Midline Cardiovascular: Yes: WNL, Regular Rate and Rhythm Respiratory: Yes: WNL, Regular, CTA Bilaterally Gastrointestinal: Yes: WNL, Normal Bowel Sounds Genitourinary: Yes: WNL Musculoskeletal: Yes: WNL Extremities: Yes: WNL Edema: No Integumentary: Yes: WNL Neurological: Yes: WNL, Alert, Oriented ...Motor Strength: WNL Psychiatric: Yes: WNL Labs: CBC, BMP 03/10/16 05:15 03/10/16 05:15 INR, PTT INR 2.71 (0.82-1.09) H 03/10/16 05:15 Problem List - Problems (1) Chest pain Code(s): R07.9 - CHEST PAIN, UNSPECIFIED (2) Dyspnea Code(s): R06.00 - DYSPNEA, UNSPECIFIED Qualifiers: Dyspnea type: orthopnea Qualified Code(s): R06.01 - Orthopnea (3) Elevated troponin Code(s): R79.89 - OTHER SPECIFIED ABNORMAL FINDINGS OF BLOOD CHEMISTRY (4) Myocardial disease Code(s): I51.5 - MYOCARDIAL DEGENERATION (5) Respiratory distress Code(s): 786.09 - RESPIRATORY ABNORM NEC (6) Epistaxis Code(s): R04.0 - EPISTAXIS (7) Atrial fibrillation Code(s): I48.91 - UNSPECIFIED ATRIAL FIBRILLATION (8) CAD (coronary artery disease) Code(s): I25.10 - ATHSCL HEART DISEASE OF [place] CORONARY ARTERY W/O ANG PCTRS (9) COPD (chronic obstructive pulmonary disease) Code(s): J44.9 - CHRONIC OBSTRUCTIVE PULMONARY DISEASE, UNSPECIFIED (10) Chronic abdominal pain Code(s): R10.9 - UNSPECIFIED ABDOMINAL PAIN G89.29 - OTHER CHRONIC PAIN (11) Chronic back pain Code(s): M54.9 - DORSALGIA, UNSPECIFIED G89.29 - OTHER CHRONIC PAIN (12) Chronic diastolic heart failure Code(s): I50.32 - CHRONIC DIASTOLIC (CONGESTIVE) HEART FAILURE (13) Constipation Code(s): K59.00 - CONSTIPATION, UNSPECIFIED (14) History of coronary artery stent placement Code(s): Z95.5 - PRESENCE OF CORONARY ANGIOPLASTY IMPLANT AND GRAFT (15) Hyperlipidemia Code(s): E78.5 - HYPERLIPIDEMIA, UNSPECIFIED (16) Hypertension Code(s): I10 - ESSENTIAL (PRIMARY) HYPERTENSION Assessment/Plan - Problems (1) Dyspnea Code(s): R06.00 - DYSPNEA, UNSPECIFIED Qualifiers: Dyspnea type: orthopnea Qualified Code(s): R06.01 - Orthopnea (2) Elevated troponin Assessment/Plan: 0.32-->0.16 over the past 24 hours; normal CK. EKG: no significant changes (NSR; RBBB; LAFB). As discussed with Dr. Coyle, interventionalist, pt will require coronary angiogram. Addendum: pt developed abdominal pain, nausea and vomiting after eating lunch, and became hypotensive. TNI taken shortly after the event showed no significant change (0.17); f/u serially. EKG was unchanged; no arrhythmias. No change in Hb or WBCs; afebrile. Pt given IV fluids with initial mild improvement in BP. For transfer to ICU; GI f/u. Code(s): R79.89 - OTHER SPECIFIED ABNORMAL FINDINGS OF BLOOD CHEMISTRY (3) Myocardial disease Code(s): I51.5 - MYOCARDIAL DEGENERATION (4) Obstructive sleep apnea Code(s): G47.33 - OBSTRUCTIVE SLEEP APNEA (ADULT) (PEDIATRIC) (5) Atrial fibrillation Assessment/Plan: s/p ablation; has been in sinus rhythm. F/u with Dr. Pollock, EP (pt is on both metoprolol and amiodarone). Code(s): I48.91 - UNSPECIFIED ATRIAL FIBRILLATION (6) CAD (coronary artery disease) Code(s): I25.10 - ATHSCL HEART DISEASE OF [place] CORONARY ARTERY W/O ANG PCTRS (7) COPD (chronic obstructive pulmonary disease) Code(s): J44.9 - CHRONIC OBSTRUCTIVE PULMONARY DISEASE, UNSPECIFIED (8) Chronic abdominal pain Code(s): R10.9 - UNSPECIFIED ABDOMINAL PAIN G89.29 - OTHER CHRONIC PAIN (9) Chronic back pain Code(s): M54.9 - DORSALGIA, UNSPECIFIED G89.29 - OTHER CHRONIC PAIN (10) Chronic diastolic heart failure Code(s): I50.32 - CHRONIC DIASTOLIC (CONGESTIVE) HEART FAILURE (11) History of coronary artery stent placement Code(s): Z95.5 - PRESENCE OF CORONARY ANGIOPLASTY IMPLANT AND GRAFT (12) Hyperlipidemia Code(s): E78.5 - HYPERLIPIDEMIA, UNSPECIFIED (13) Hypertension Code(s): I10 - ESSENTIAL (PRIMARY) HYPERTENSION cc time 35 min
--- NOTE | 2016-03-10 12:56 | PN ---
Teaching Attending Note Name of Resident: Enoc Krishnamurthy ATTENDING PHYSICIAN STATEMENT I saw and evaluated the patient. I reviewed the resident's note and discussed the case with the resident. I agree with the resident's findings and plan as documented. SUBJECTIVE: Pt seen and examined in the ICU. No further chest pain or shortness of breath. Blood pressure improved. In sinus rhythm. OBJECTIVE: Last Vital Signs Temp Pulse Resp BP Pulse Ox 98.8 F 88 20 147/73 93 L 03/10/16 09:42 03/10/16 10:18 03/10/16 09:42 03/10/16 09:42 03/10/16 11:55 Intake & Output 03/07/16 03/08/16 03/09/16 03/10/16 23:59 23:59 23:59 23:59 Intake Total 370 450 200 Output Total 500 Balance 370 450 -300 Weight 245 lb 248 lb 6.4 oz 258 lb 2.581 oz Gen: NAD in chair Heart: RRR Lung: scattered rhonchi Abd: soft, nontender Ext: no edema CBC, BMP 03/10/16 05:15 03/10/16 05:15 Active Medications Acetaminophen (Tylenol -) 650 mg PO Q6H PRN PRN Reason: PAIN Last Admin: 03/10/16 09:36 Dose: 650 mg Al Hydroxide/Mg Hydroxide (Mylanta Oral Suspension -) 30 ml PO Q6H PRN PRN Reason: DYSPEPSIA Albuterol Sulfate (Ventolin 0.083% Nebulizer Soln -) 1 amp NEB Q4H PRN PRN Reason: SHORT OF BREATH/WHEEZING Last Admin: 03/09/16 22:20 Dose: 1 amp Amiodarone HCl (Cordarone -) 200 mg PO DAILY [facility] Last Admin: 03/10/16 09:54 Dose: 200 mg Aspirin (Asa -) 81 mg PO DAILY [facility] Last Admin: 03/10/16 09:53 Dose: 81 mg Atorvastatin Calcium (Lipitor -) 20 mg PO HS [facility] Last Admin: 03/09/16 21:09 Dose: 20 mg Budesonide/Formoterol Fumarate (Symbicort 80/4.5mcg -) 2 puff IH BID [facility] Last Admin: 03/10/16 10:05 Dose: Not Given Diltiazem HCl (Cardizem Cd -) 120 mg PO [facility] Docusate Sodium (Colace -) 300 mg PO [facility] Fenofibric Acid (Trilipix -) 135 mg PO DAILY [facility] Last Admin: 03/10/16 09:53 Dose: 135 mg Pantoprazole Sodium (Protonix 40mg Ivpb (Pre-Docked)) 100 mls @ 200 mls/hr IVPB DAILY [facility] Last Admin: 03/10/16 09:54 Dose: 200 mls/hr Potassium Chloride 10 meq/ (Sodium Chloride) 1,005 mls @ 75 mls/hr IVPB Q13H [facility] Last Admin: 03/10/16 10:34 Dose: 75 mls/hr Isosorbide Mononitrate (Imdur -) 120 mg PO DAILY [facility] Last Admin: 03/10/16 11:05 Dose: 120 mg Metoclopramide HCl (Reglan Injection -) 10 mg IVPB Q8H PRN PRN Reason: NAUSEA AND/OR VOMITING Metoprolol Succinate (Toprol Xl -) 50 mg PO BID [facility] Last Admin: 03/10/16 09:54 Dose: 50 mg Non-Formulary Medication (Linaclotide [Linzess]) 145 mcg PO DAILY [facility] Non-Formulary Medication (Lubiprostone [Amitiza]) 24 mcg PO DAILY [facility] Rreqh-7-Wuvb Ethyl Esters (Lovaza -) 1 gm PO BID [facility] Last Admin: 03/10/16 09:53 Dose: 1 gm Oxycodone HCl (Roxicodone -) 10 mg PO Q6H PRN PRN Reason: PAIN Last Admin: 03/10/16 09:36 Dose: 10 mg Prasugrel (Effient -) 5 mg PO DAILY [facility] Last Admin: 03/10/16 09:54 Dose: 5 mg Ranitidine HCl (Zantac -) 300 mg PO DAILY [facility] Last Admin: 03/10/16 09:53 Dose: 300 mg Ranolazine (Ranexa -) 1,000 mg PO BID [facility] Last Admin: 03/10/16 09:54 Dose: 1,000 mg Roflumilast (Daliresp -) 500 mcg PO DAILY [facility] Last Admin: 03/10/16 09:54 Dose: 500 mcg Tamsulosin HCl (Flomax -) 0.4 mg PO DAILY@0830 [facility] Last Admin: 03/10/16 08:22 Dose: 0.4 mg Tiotropium [place] (Spiriva -) 1 puff IH DAILY [facility] Last Admin: 03/10/16 10:04 Dose: Not Given ASSESSMENT AND PLAN: Chest Pain CAD s/p CABG/+Troponins/NSTEMI LV Diastolic Dysfunction Atrial Fibrillation s/p Ablation COPD NOREEN Hypotension likely medication related resolved Acute on Chronic Renal Failure - ASA, effient - beta mary, statin - continue anticoagulation - inhaled bronchodilators - IVF - monitor urine output, creatinine - BiPAP at night - can monitor on telemetry
[2016-03-10 13:01] LABS: PH,URINE 6.5 (5.0-8.0); URINE APPEARANCE CLEAR; URINE BILIRUBIN NEGATIVE (NEGATIVE); URINE BLOOD NEGATIVE (NEGATIVE); URINE COLOR LT. YELLOW; URINE GLUCOSE (UA) NEGATIVE (NEGATIVE); URINE KETONE NEGATIVE (NEGATIVE); URINE LEUK ESTERASE NEGATIVE (NEGATIVE); URINE NITRITE NEGATIVE (NEGATIVE); URINE PROTEIN NEGATIVE (NEGATIVE); URINE UROBILINOGEN 1.0 E.U/dl E.U./dl (0.2-1.0)
[2016-03-10 13:08] LABS: URINE CREATININE 38.9 mg/dL
[2016-03-10 15:14] LABS: TROPONIN I 0.1 ng/ml (0.00-0.05)
[2016-03-10] MEDS: MAG HYDROX/AL HYDROX/SIMETH 30 ML UNIT-DOSE CUP PO PRN (16:17)
--- NOTE | 2016-03-10 16:19 | PN ---
Physical Exam: SUBJECTIVE: Patient seen and examined at bedside. No overnight events. No new complaints. Denies CP, TELLO, SOB, palpitations, N/V. OBJECTIVE: Vital Signs Period Temp Pulse Resp BP Sys/Dinh Pulse Ox Last 24 Hr 98.2 F-98.8 F 61-88 15-23 88-147/31-77 93-98 GENERAL: Comfortable, in no acute distress. HEAD: Normal with no signs of trauma. EYES: Pupils equal, round and reactive to light, extraocular movements intact, sclera anicteric, conjunctiva clear. No lid lag. EARS, NOSE, THROAT: Ears normal, nares patent, Moist mucous membranes. NECK: supple without JVD, or masses. LUNGS: Breath sounds equal, Bibasilar fine crackles. No wheezes, and no crackles. No accessory muscle use. HEART: Regular rate and rhythm, normal S1 and S2 without murmur, rub or gallop. ABDOMEN: Soft, epigastric tenderness. No rebound or gaurding. MUSCULOSKELETAL: Normal range of motion at all joints. No bony deformities or tenderness. No CVA tenderness. UPPER EXTREMITIES: 2+ pulses, warm, well-perfused. No cyanosis. No clubbing. Cap refill <2 seconds. trace peripheral edema. LOWER EXTREMITIES: 2+ pulses, warm, well-perfused. No calf tenderness. No peripheral edema. NEUROLOGICAL: AAOx3 PSYCHIATRIC: Cooperative. Good eye contact. Appropriate mood and affect. SKIN: Warm, dry, normal turgor, no rashes or lesions noted. Laboratory Results - last 24 hr 03/09/16 03/09/16 03/09/16 14:00 19:30 19:30 WBC 7.9 RBC 4.41 Hgb 11.5 L Hct 35.5 MCV 80.5 MCHC 32.4 RDW 15.3 Plt Count 261 MPV 7.6 Neutrophils % Lymphocytes % Monocytes % Eosinophils % Basophils % INR Sodium Potassium Chloride Carbon Dioxide Anion Gap BUN Creatinine Random Glucose Calcium Total Bilirubin Direct Bilirubin AST ALT Alkaline Phosphatase Creatine Kinase Troponin I B-Natriuretic Peptide 481.99 H Total Protein Albumin Lipase Free T4 2.69 H Urine Color Urine Appearance Urine pH Ur Specific [place] Urine Protein Urine Glucose (UA) Urine Ketones Urine Blood Urine Nitrite Urine Bilirubin Urine Urobilinogen Ur Leukocyte Esterase Ur Random Sodium Ur Random Potassium Ur Random Chloride Urine Creatinine 03/09/16 03/10/1603/10/17 19:30 05:15 05:15 WBC 6.9 RBC 4.23 Hgb 11.0 L Hct 34.1 L MCV 80.6 MCHC 32.2 RDW 15.4 Plt Count 245 MPV 8.0 Neutrophils % 65.2 Lymphocytes % 19.6 Monocytes % 11.8 H Eosinophils % 3.0 Basophils % 0.4 INR 2.71 H Sodium Potassium Chloride Carbon Dioxide Anion Gap BUN Creatinine Random Glucose Calcium Total Bilirubin Direct Bilirubin AST ALT Alkaline Phosphatase Creatine Kinase 62 Troponin I 0.15 H B-Natriuretic Peptide Total Protein Albumin Lipase Free T4 Urine Color Urine Appearance Urine pH Ur Specific [place] Urine Protein Urine Glucose (UA) Urine Ketones Urine Blood Urine Nitrite Urine Bilirubin Urine Urobilinogen Ur Leukocyte Esterase Ur Random Sodium Ur Random Potassium Ur Random Chloride Urine Creatinine 03/10/16 03/10/16 03/10/16 05:15 05:15 05:15 WBC RBC Hgb Hct MCV MCHC RDW Plt Count MPV Neutrophils % Lymphocytes % Monocytes % Eosinophils % Basophils % INR Sodium 133 L Potassium 4.2 Chloride 95 L Carbon Dioxide 29 Anion Gap 9 BUN 37 H D Creatinine 2.2 H Random Glucose 93 Calcium 8.9 Total Bilirubin Direct Bilirubin AST ALT Alkaline Phosphatase Creatine Kinase 56 Troponin I Cancelled 0.11 H B-Natriuretic Peptide Total Protein Albumin Lipase 58 L Free T4 Urine Color Urine Appearance Urine pH Ur Specific [place] Urine Protein Urine Glucose (UA) Urine Ketones Urine Blood Urine Nitrite Urine Bilirubin Urine Urobilinogen Ur Leukocyte Esterase Ur Random Sodium Ur Random Potassium Ur Random Chloride Urine Creatinine 03/10/16 03/10/16 03/10/16 05:15 11:00 11:00 WBC RBC Hgb Hct MCV MCHC RDW Plt Count MPV Neutrophils % Lymphocytes % Monocytes % Eosinophils % Basophils % INR Sodium Potassium Chloride Carbon Dioxide Anion Gap BUN Creatinine Random Glucose Calcium Total Bilirubin 0.4 D Direct Bilirubin 0.2 AST 17 ALT 26 Alkaline Phosphatase 38 L Creatine Kinase Troponin I B-Natriuretic Peptide Total Protein 6.7 Albumin 3.4 Lipase Free T4 Urine Color Lt. yellow Urine Appearance Clear Urine pH 6.5 Ur Specific [place] <= 1.005 Urine Protein Negative Urine Glucose (UA) Negative Urine Ketones Negative Urine Blood Negative Urine Nitrite Negative Urine Bilirubin Negative Urine Urobilinogen 1.0 e.u/dl Ur Leukocyte Esterase Negative Ur Random Sodium 39 Ur Random Potassium 8.7 Ur Random Chloride 22 Urine Creatinine 38.9 03/10/16 03/10/16 11:00 14:20 WBC RBC Hgb Hct MCV MCHC RDW Plt Count MPV Neutrophils % Lymphocytes % Monocytes % Eosinophils % Basophils % INR Sodium Potassium Chloride Carbon Dioxide Anion Gap BUN Creatinine Random Glucose Calcium Total Bilirubin Direct Bilirubin AST ALT Alkaline Phosphatase Creatine Kinase 55 Troponin I 0.10 H B-Natriuretic Peptide Total Protein Albumin Lipase Free T4 Urine Color Urine Appearance Urine pH Ur Specific [place] Urine Protein Urine Glucose (UA) Urine Ketones Urine Blood Urine Nitrite Urine Bilirubin Urine Urobilinogen Ur Leukocyte Esterase Ur Random Sodium Ur Random Potassium Ur Random Chloride Urine Creatinine Cancelled Active Medications Generic Name Dose Route Start Last Admin Trade Name Freq PRN Reason Stop Dose Admin Acetaminophen 650 mg 03/09/16 15:50 03/10/16 09:36 Tylenol - PO 650 mg Q6H PRN Administration PAIN Al Hydroxide/Mg Hydroxide 30 ml 03/09/16 17:15 Mylanta Oral Suspension - PO Q6H PRN DYSPEPSIA Albuterol Sulfate 1 amp 03/09/16 15:50 03/09/16 22:20 Ventolin 0.083% Nebulizer Soln - NEB 1 amp Q4H PRN Administration SHORT OF BREATH/WHEEZING Amiodarone HCl 200 mg 03/10/16 10:00 03/10/16 09:54 Cordarone - PO 200 mg DAILY RENY Administration Aspirin 81 mg 03/10/16 10:00 03/10/16 09:53 Asa - PO 81 mg DAILY RENY Administration Atorvastatin Calcium 20 mg 03/09/16 22:00 03/09/16 21:09 Lipitor - PO 20 mg HS RENY Administration Budesonide/Formoterol Fumarate 2 puff 03/09/16 22:00 03/10/16 10:05 Symbicort 80/4.5mcg - IH Not Given BID RENY Diltiazem HCl 120 mg 03/10/16 22:00 Cardizem Cd - PO HS RENY Docusate Sodium 300 mg 03/10/16 22:00 Colace - PO HS RENY Fenofibric Acid 135 mg 03/10/16 10:00 03/10/16 09:53 Trilipix - PO 135 mg DAILY RENY Administration Pantoprazole Sodium 100 mls @ 200 mls/hr 03/10/16 10:00 03/10/16 09:54 Protonix 40mg Ivpb (Pre-Docked) IVPB 200 mls/hr DAILY R[facility] Administration Potassium Chloride 10 meq/ 1,005 mls @ 75 mls/hr 03/10/16 10:30 03/10/16 10:34 Sodium Chloride IVPB 75 mls/hr Q13H RENY Administration Isosorbide Mononitrate 120 mg 03/10/16 10:00 03/10/16 11:05 Imdur - PO 120 mg DAILY [facility] Administration Metoclopramide HCl 10 mg 03/09/16 15:50 Reglan Injection - IVPB Q8H PRN NAUSEA AND/OR VOMITING Metoprolol Succinate 50 mg 03/10/16 10:00 03/10/16 09:54 Toprol Xl - PO 50 mg BID RENY Administration Non-Formulary Medication 145 mcg 03/10/16 10:00 Linaclotide [Linzess] PO DAILY [facility] Non-Formulary Medication 24 mcg 03/10/16 10:00 Lubiprostone [Amitiza] PO DAILY [facility] [id number] Ethyl Esters 1 gm 03/09/16 22:00 03/10/16 09:53 Lovaza - PO 1 gm BID R[facility] Administration Oxycodone HCl 10 mg 03/09/16 15:50 03/10/16 09:36 Roxicodone - PO 10 mg Q6H PRN Administration PAIN Prasugrel 5 mg 03/10/16 10:00 03/10/16 09:54 Effient - PO 5 mg DAILY RENY Administration Ranitidine HCl 300 mg 03/10/16 10:00 03/10/16 09:53 Zantac - PO 300 mg DAILY REN[facility] Administration Ranolazine 1,000 mg 03/09/16 22:00 03/10/16 09:54 Ranexa - PO 1,000 mg BID RENY Administration Roflumilast 500 mcg 03/10/16 10:00 03/10/16 09:54 Daliresp - PO 500 mcg DAILY REN[facility] Administration Tamsulosin HCl 0.4 mg 03/10/16 08:30 03/10/16 08:22 Flomax - PO 0.4 mg DAILY@0830 [facility] Administration Tiotropium [place] 1 puff 03/10/16 10:00 03/10/16 10:04 Spiriva - IH Not Given DAILY RENY ASSESSMENT/PLAN: 60 yo M with PMHx of CAD, CHF, Afib admitted for acute exacerbation of CHF transfered to ICU s/p rapid response for hypotension. Patient is up for transfer to [place] for cardiac cath. Plan: Neuro: * AAOx3 NAD Pulmonary: * Continue supplemental O2 2.5L NC to maintain O2 sat >90% * Daliresp 500mcg OP daily * Albuterol 1 amp NEB Q4H PRN * Symbicort 80/4.5mcg 2 puff IH BID * Spiriva 1 puff IH DAILY CV: * Add back BP med * Continue antianginals * UP for transfer to [place] for cardiac cath. GI: * Protonix 40 mg BID * repeat H/H stable Dispo: Can be transferred to telemetry. Visit type - Emergency Visit Emergency Visit: Yes ED Registration Date: 03/08/16 Care time: The patient presented to the Emergency Department on the above date and was hospitalized for further evaluation of their emergent condition. - New Patient This patient is new to me today: No - Critical Care Critical Care patient: Yes Total Critical Care Time (in minutes): 32 Critical Care Statement: The care of this patient involved high complexity decision making to prevent further life threatening deterioration of the patient 's condition and/or to evalute & treat vital organ system(s) failure or risk of failure.
[2016-03-10 20:44] LABS: CALCIUM 8.8 mg/dL (8.5-10.1)
[2016-03-10 20:46] LABS: CREATININE 1.3 mg/dL (0.7-1.3)
[2016-03-10] MEDS: DOCUSATE SODIUM 100 MG CAPSULE (FP) PO SCH (21:38)
[2016-03-10] MEDS: ATORVASTATIN CA 20 MG TABLET (FP) PO SCH (21:39)
[2016-03-10 22:42] LABS: TROPONIN I 0.08 ng/ml (0.00-0.05)
[2016-03-11] MEDS: ACETAMINOPHEN 325 MG TABLET (FP) PO PRN ×4 (04:41→21:36)
[2016-03-11] MEDS: oxyCODONE HCL 5 MG TABLET PO PRN ×4 (04:41→21:35)
[2016-03-11] MEDS: POTASSIUM CHLORIDE 10 MEQ in SODIUM CHLORIDE 0.45% 1,000 ML IVPB SCH (04:43)
--- NOTE | 2016-03-11 07:32 | PN ---
Progress Note, Physician History of Present Illness: EVENTS NOTED HAD AN EPISODE OF HYPOTENSION AND ABDOMINAL PAIN--NOW RESOLVED CE NO SIGNIFICANT CHANGE SEEN BY GI AND CARDIO PT OFFERS NO COMPLAINTS TODAY - Current Medication List Current Medications: Active Medications Acetaminophen (Tylenol -) 650 mg PO Q6H PRN PRN Reason: PAIN Last Admin: 03/11/16 04:41 Dose: 650 mg Al Hydroxide/Mg Hydroxide (Mylanta Oral Suspension -) 30 ml PO Q6H PRN PRN Reason: DYSPEPSIA Last Admin: 03/10/16 16:17 Dose: 30 ml Albuterol Sulfate (Ventolin 0.083% Nebulizer Soln -) 1 amp NEB Q4H PRN PRN Reason: SHORT OF BREATH/WHEEZING Last Admin: 03/09/16 22:20 Dose: 1 amp Amiodarone HCl (Cordarone -) 200 mg PO DAILY [facility] Last Admin: 03/10/16 09:54 Dose: 200 mg Aspirin (Asa -) 81 mg PO DAILY [facility] Last Admin: 03/10/16 09:53 Dose: 81 mg Atorvastatin Calcium (Lipitor -) 20 mg PO HS [facility] Last Admin: 03/10/16 21:39 Dose: 20 mg Budesonide/Formoterol Fumarate (Symbicort 80/4.5mcg -) 2 puff IH BID [facility] Last Admin: 03/10/16 22:21 Dose: 2 puff Diltiazem HCl (Cardizem Cd -) 120 mg PO HS [facility] Last Admin: 03/10/16 21:39 Dose: 120 mg Docusate Sodium (Colace -) 300 mg PO HS [facility] Last Admin: 03/10/16 21:38 Dose: 300 mg Fenofibric Acid (Trilipix -) 135 mg PO DAILY [facility] Last Admin: 03/10/16 09:53 Dose: 135 mg Pantoprazole Sodium (Protonix 40mg Ivpb (Pre-Docked)) 100 mls @ 200 mls/hr IVPB DAILY [facility] Last Admin: 03/10/16 09:54 Dose: 200 mls/hr Potassium Chloride 10 meq/ (Sodium Chloride) 1,005 mls @ 75 mls/hr IVPB Q13H [facility] Last Admin: 03/11/16 04:43 Dose: 75 mls/hr Isosorbide Mononitrate (Imdur -) 120 mg PO DAILY [facility] Last Admin: 03/10/16 11:05 Dose: 120 mg Metoclopramide HCl (Reglan Injection -) 10 mg IVPB Q8H PRN PRN Reason: NAUSEA AND/OR VOMITING Metoprolol Succinate (Toprol Xl -) 50 mg PO BID [facility] Last Admin: 03/10/16 21:41 Dose: 50 mg Non-Formulary Medication (Linaclotide [Linzess]) 145 mcg PO DAILY [facility] Non-Formulary Medication (Lubiprostone [Amitiza]) 24 mcg PO DAILY [facility] [id number] Ethyl Esters (Lovaza -) 1 gm PO BID [facility] Last Admin: 03/10/16 21:38 Dose: 1 gm Oxycodone HCl (Roxicodone -) 10 mg PO Q6H PRN PRN Reason: PAIN Last Admin: 03/11/16 04:41 Dose: 10 mg Prasugrel (Effient -) 5 mg PO DAILY [facility] Last Admin: 03/10/16 09:54 Dose: 5 mg Ranitidine HCl (Zantac -) 300 mg PO DAILY [facility] Last Admin: 03/10/16 09:53 Dose: 300 mg Ranolazine (Ranexa -) 1,000 mg PO BID [facility] Last Admin: 03/10/16 21:39 Dose: 1,000 mg Roflumilast (Daliresp -) 500 mcg PO DAILY [facility] Last Admin: 03/10/16 09:54 Dose: 500 mcg Tamsulosin HCl (Flomax -) 0.4 mg PO DAILY@0830 [facility] Last Admin: 03/10/16 08:22 Dose: 0.4 mg Tiotropium [place] (Spiriva -) 1 puff IH DAILY [facility] Last Admin: 03/10/16 10:04 Dose: Not Given - Objective Vital Signs: Vital Signs Temperature 98 F 03/11/16 05:06 Pulse Rate 72 03/11/16 05:06 Respiratory Rate 18 03/11/16 05:06 Blood Pressure 123/72 03/11/16 05:06 O2 Sat by Pulse Oximetry (%) 96 03/10/16 22:00 Cardiovascular: Yes: Regular Rate and Rhythm Respiratory: Yes: Regular, CTA Bilaterally Gastrointestinal: Yes: Normal Bowel Sounds, Soft Edema: No Labs: INR, PTT INR 2.71 (0.82-1.09) H 03/10/16 05:15 Problem List - Problems (1) Chest pain Assessment/Plan: PAIN FREE NOW CE POSITIVE--FOLLOW-- TRENDING DOWN CONTINUE WITH MEDS CARDIO CONSULT NOTED--WILL DISCUSS CATH--NOW CR 2.1 LAST STENT 2013 COUMADIN/EFFIENT/ASA ON METOPROLOL/CRADIZEM AND IMDUR Code(s): R07.9 - CHEST PAIN, UNSPECIFIED (2) Elevated troponin Assessment/Plan: FOLLOW LABS--FOR CATH Code(s): R79.89 - OTHER SPECIFIED ABNORMAL FINDINGS OF BLOOD CHEMISTRY (3) Dyspnea Assessment/Plan: CONBO--COPD AND CAD PULM AND CARDIO Code(s): R06.00 - DYSPNEA, UNSPECIFIED Qualifiers: Dyspnea type: orthopnea Qualified Code(s): R06.01 - Orthopnea (4) Atrial fibrillation Assessment/Plan: RATE CONTROLLED ON AMIO AND AC INR, PTT INR 2.71 (0.82-1.09) H 03/10/16 05:15 Code(s): I48.91 - UNSPECIFIED ATRIAL FIBRILLATION (5) COPD (chronic obstructive pulmonary disease) Code(s): J44.9 - CHRONIC OBSTRUCTIVE PULMONARY DISEASE, UNSPECIFIED (6) History of coronary artery stent placement Assessment/Plan: ABOVE Code(s): Z95.5 - PRESENCE OF CORONARY ANGIOPLASTY IMPLANT AND GRAFT (7) Hypotension Assessment/Plan: RESOLVED MEDS ADJUSTED LOPRESSOR 50 BID CARDIZEM CD 120 HS IMDUR 120 AM HOLD LASIX AND TATI Code(s): I95.9 - HYPOTENSION, UNSPECIFIED (8) TRACY (acute kidney injury) Assessment/Plan: IMPROVED--CR 1.3 MAYBE DUE TO HYPOTENSIVE EPISODE MAYTE HOLD DIURETICS AND TATI MONITOR RENAL Code(s): N17.9 - ACUTE KIDNEY FAILURE, UNSPECIFIED
[2016-03-11 07:44] LABS: BASOPHIL 0.6 % (0-2.0); EOSINOPHIL 2.8 % (0-4.5); MCHC 33.2 g/dl (32.0-35.9); MEAN CELL VOLUME 81.5 fl (80-96); MEAN PLT VOLUME 7.7 fl (7.5-11.1); NEUTROPHILS 67.1 % (42.8-82.8); PLATELET COUNT 212 K/MM3 (134-434); RDW 15.1 % (11.9-15.9); WHITE BLOOD COUNT 6.4 K/mm3 (4.0-10.0)
[2016-03-11 07:57] LABS: INR 1.95 (0.82-1.09); PROTHROMBIN TIME (PATIENT) 21.8 SEC (9.98-11.88)
[2016-03-11 09:05] LABS: CALCIUM 9.4 mg/dL (8.5-10.1); CREATININE 1.1 mg/dL (0.7-1.3)
[2016-03-11] MEDS: ASPIRIN 81 MG CHEWABLE TABLETS PO SCH (09:19)
[2016-03-11] MEDS: TAMSULOSIN HCL 0.4 MG CAP.ER.24H (FP) PO SCH (09:19)
[2016-03-11] MEDS: AMIODARONE HCL 200 MG TABLET (FP) PO SCH (09:20)
[2016-03-11] MEDS: METOPROLOL SUCCINATE 50 MG TAB.SR.24H (FP) PO SCH ×2 (09:20→21:37)
[2016-03-11] MEDS: RANITIDINE HCL 150 MG TABLET (FP) PO SCH (09:20)
[2016-03-11] MEDS: OMEGA-3 ACID ETHYL ESTERS (FATTY-ACIDS) 1 GM CAPSULE (FP) PO SCH ×2 (09:22→21:38)
[2016-03-11] MEDS: RANOLAZINE E.R. 1,000 MG TABLET (FP) PO SCH ×2 (09:22→21:37)
[2016-03-11] MEDS: BUDESONIDE/FORMETEROL FUMARATE 80/4.5 mcg INHALER IH SCH ×2 (09:24→21:38)
[2016-03-11] MEDS ORDERED: PT OWN MED DRAWER 7, Y5N ONE (09:50)
[2016-03-11] MEDS: FENOFIBRIC ACID 135 MG CAP PO SCH (10:41)
[2016-03-11] MEDS: ISOSORBIDE MONONITRATE 60 MG TAB.SR.24H (FP) PO SCH (10:41)
[2016-03-11] MEDS: TIOTROPIUM BROMIDE 18 MCG/INH (DEVICE W/ 5 CAPSULES) IH SCH (10:41)
[2016-03-11] MEDS: PANTOPRAZOLE SODIUM 100 ML IVPB SCH (10:42)
[2016-03-11] MEDS: PRASUGREL HCL 5 MG TAB PO SCH (10:43)
[2016-03-11] MEDS: ROFLUMILAST 500 MCG TABLET PO SCH (10:43)
--- NOTE | 2016-03-11 11:25 | PN ---
Progress Note, Physician Chief Complaint: Pt A&Ox3; sitting up at bedside; asymptomatic. History of Present Illness: Patient is a 60-year-old male (fatimah Lopez), with history of CAD, A. fib, sleep apnea, HLD, [place], GERD,coronary stent placement x 14 (most recent angiogram, 2015, showed multivessel nonobstrucitve CAD), cadiac ablation of AF (followed by Dr. Brandyn Pollock), mild-moderate aortic stenosis, now complaining of shortness of breath. States his SOB is chronic but is able to lay down and go to sleep. But tonight when he would try to lay down he had shortness of breath and has been persistent since 10:00 PM. He denies any chest pain, dizziness, nausea, vomiting, diarrhea. States that about 9:30pm he had some sweating with no other symptoms. States had a cardiology follow up 1 week ago which was uneventful. No recent travel, no leg swelling. He is on anticoagulants - coumadin, effient and asa - Current Medication List Current Medications: Active Medications Acetaminophen (Tylenol -) 650 mg PO Q6H PRN PRN Reason: PAIN Last Admin: 03/11/16 10:40 Dose: 650 mg Al Hydroxide/Mg Hydroxide (Mylanta Oral Suspension -) 30 ml PO Q6H PRN PRN Reason: DYSPEPSIA Last Admin: 03/10/16 16:17 Dose: 30 ml Albuterol Sulfate (Ventolin 0.083% Nebulizer Soln -) 1 amp NEB Q4H PRN PRN Reason: SHORT OF BREATH/WHEEZING Last Admin: 03/09/16 22:20 Dose: 1 amp Amiodarone HCl (Cordarone -) 200 mg PO DAILY [facility] Last Admin: 03/11/16 09:20 Dose: 200 mg Aspirin (Asa -) 81 mg PO DAILY [facility] Last Admin: 03/11/16 09:19 Dose: 81 mg Atorvastatin Calcium (Lipitor -) 20 mg PO [facility] Last Admin: 03/10/16 21:39 Dose: 20 mg Budesonide/Formoterol Fumarate (Symbicort 80/4.5mcg -) 2 puff IH BID [facility] Last Admin: 03/11/16 09:24 Dose: 2 puff Diltiazem HCl (Cardizem Cd -) 120 mg PO [facility] Last Admin: 03/10/16 21:39 Dose: 120 mg Docusate Sodium (Colace -) 300 mg PO HS [facility] Last Admin: 03/10/16 21:38 Dose: 300 mg Fenofibric Acid (Trilipix -) 135 mg PO DAILY [facility] Last Admin: 03/11/16 10:41 Dose: 135 mg Isosorbide Mononitrate (Imdur -) 120 mg PO DAILY [facility] Last Admin: 03/11/16 10:41 Dose: 120 mg Metoclopramide HCl (Reglan Injection -) 10 mg IVPB Q8H PRN PRN Reason: NAUSEA AND/OR VOMITING Metoprolol Succinate (Toprol Xl -) 50 mg PO BID [facility] Last Admin: 03/11/16 09:20 Dose: 50 mg Non-Formulary Medication (Linaclotide [Linzess]) 145 mcg PO DAILY [facility] Non-Formulary Medication (Lubiprostone [Amitiza]) 24 mcg PO DAILY [facility] [id number]-[id number] Ethyl Esters (Lovaza -) 1 gm PO BID [facility] Last Admin: 03/11/16 09:22 Dose: 1 gm Oxycodone HCl (Roxicodone -) 10 mg PO Q6H PRN PRN Reason: PAIN Last Admin: 03/11/16 10:39 Dose: 10 mg Pantoprazole Sodium (Protonix -) 40 mg PO DAILY [facility] Prasugrel (Effient -) 5 mg PO DAILY [facility] Last Admin: 03/11/16 10:43 Dose: 5 mg Ranitidine HCl (Zantac -) 300 mg PO DAILY [facility] Last Admin: 03/11/16 09:20 Dose: 300 mg Ranolazine (Ranexa -) 1,000 mg PO BID [facility] Last Admin: 03/11/16 09:22 Dose: 1,000 mg Roflumilast (Daliresp -) 500 mcg PO DAILY [facility] Last Admin: 03/11/16 10:43 Dose: 500 mcg Tamsulosin HCl (Flomax -) 0.4 mg PO DAILY@0830 [facility] Last Admin: 03/11/16 09:19 Dose: 0.4 mg Tiotropium [place] (Spiriva -) 1 puff IH DAILY [facility] Last Admin: 03/11/16 10:41 Dose: Not Given - Objective Vital Signs: Vital Signs Temperature 98 F 03/11/16 05:06 Pulse Rate 72 03/11/16 05:06 Respiratory Rate 18 03/11/16 05:06 Blood Pressure 123/72 03/11/16 05:06 O2 Sat by Pulse Oximetry (%) 96 03/10/16 22:00 Constitutional: Yes: Calm, Obese Eyes: Yes: WNL HENT: Yes: WNL Neck: Yes: WNL Cardiovascular: Yes: Regular Rate and Rhythm Respiratory: Yes: WNL Gastrointestinal: Yes: Soft, Abdomen, Obese ...Rectal Exam: Yes: Deferred Genitourinary: No: Anuria Breast(s): Yes: WNL Musculoskeletal: Yes: WNL Extremities: Yes: WNL Edema: No Peripheral Pulses WNL: Yes Integumentary: Yes: WNL Neurological: Yes: Alert, Oriented Psychiatric: Yes: Alert, Oriented Labs: CBC, BMP 03/11/16 05:35 03/11/16 05:35 INR, PTT INR 1.95 (0.82-1.09) H 03/11/16 05:35 Laboratory Results - last 24 hr 03/09/16 03/11/16 03/11/16 17:00 05:35 05:35 WBC RBC Hgb Hct MCV MCHC RDW Plt Count MPV Neutrophils % Lymphocytes % Monocytes % Eosinophils % Basophils % INR 1.95 H Sodium 137 Potassium 4.7 Chloride 100 Carbon Dioxide 26 Anion Gap 11 BUN 20 H Creatinine 1.1 Random Glucose 92 D Calcium 9.4 Troponin I Free T3 4.9 H 03/11/16 03/11/16 05:35 05:35 WBC 6.4 RBC 3.91 L Hgb 10.6 L Hct 31.8 L MCV 81.5 MCHC 33.2 RDW 15.1 Plt Count 212 MPV 7.7 Neutrophils % 67.1 Lymphocytes % 17.9 Monocytes % 11.6 H Eosinophils % 2.8 Basophils % 0.6 INR Sodium Potassium Chloride Carbon Dioxide Anion Gap BUN Creatinine Random Glucose Calcium Troponin I 0.06 H Free T3 Abnormal Lab Results 03/09/16 03/11/16 03/11/16 17:00 05:35 05:35 RBC Hgb Hct Monocytes % INR 1.95 H BUN 20 H Troponin I Free T3 4.9 H 03/11/16 03/11/16 05:35 05:35 RBC 3.91 L Hgb 10.6 L Hct 31.8 L Monocytes % 11.6 H INR BUN Troponin I 0.06 H Free T3 - ....Imaging Chest X-ray: Image Reviewed (no acute pathology) EKG: Image Reviewed (NSR; bifasciular block (RBBB; LAFB)) Problem List - Problems (1) Dyspnea Code(s): R06.00 - DYSPNEA, UNSPECIFIED Qualifiers: Dyspnea type: orthopnea Qualified Code(s): R06.01 - Orthopnea (2) Elevated troponin Assessment/Plan: 0.32-->0.16 over the past 24 hours; normal CK. EKG: no significant changes (NSR; RBBB; LAFB). Multiple coronary artery risk factors, with prior stents. As discussed with Dr. Coyle, interventionalist, pt will require coronary angiogram. Addendum: pt developed abdominal pain, nausea and vomiting after eating lunch 2 days ago, and became hypotensive. TNI taken shortly after the event showed no significant change (0.17); f/u serially. EKG was unchanged; no arrhythmias. No change in Hb or WBCs; afebrile. He was transferred to ICU. Code(s): R79.89 - OTHER SPECIFIED ABNORMAL FINDINGS OF BLOOD CHEMISTRY (3) Myocardial disease Code(s): I51.5 - MYOCARDIAL DEGENERATION (4) Obstructive sleep apnea Code(s): G47.33 - OBSTRUCTIVE SLEEP APNEA (ADULT) (PEDIATRIC) (5) Atrial fibrillation Assessment/Plan: s/p ablation; has been in sinus rhythm. F/u with Dr. Pollock, EP (pt is on diltiazem, metoprolol, and amiodarone; the latter needs review, due to potential side effects with long-term use). Code(s): I48.91 - UNSPECIFIED ATRIAL FIBRILLATION (6) CAD (coronary artery disease) Code(s): I25.10 - ATHSCL HEART DISEASE OF [place] CORONARY ARTERY W/O ANG PCTRS (7) COPD (chronic obstructive pulmonary disease) Code(s): J44.9 - CHRONIC OBSTRUCTIVE PULMONARY DISEASE, UNSPECIFIED (8) Chronic abdominal pain Code(s): R10.9 - UNSPECIFIED ABDOMINAL PAIN G89.29 - OTHER CHRONIC PAIN (9) Chronic back pain Code(s): M54.9 - DORSALGIA, UNSPECIFIED G89.29 - OTHER CHRONIC PAIN (10) Chronic diastolic heart failure Code(s): I50.32 - CHRONIC DIASTOLIC (CONGESTIVE) HEART FAILURE (11) History of coronary artery stent placement Code(s): Z95.5 - PRESENCE OF CORONARY ANGIOPLASTY IMPLANT AND GRAFT (12) Hyperlipidemia Assessment/Plan: on atorvastatin. The importance of changing diet and losing weight was again discussed. Mr Candelario admits he has trouble controlling types and amounts of food. Code(s): E78.5 - HYPERLIPIDEMIA, UNSPECIFIED (13) Hypertension Code(s): I10 - ESSENTIAL (PRIMARY) HYPERTENSION (14) Moderate aortic stenosis Code(s): I35.0 - NONRHEUMATIC AORTIC (VALVE) STENOSIS
[2016-03-11] MEDS: PANTOPRAZOLE 40 MG TABLET (FP) PO SCH (11:31)
--- NOTE | 2016-03-11 12:53 | PN ---
Progress Note, Physician History of Present Illness: Pt seen and examined at bedside. He is awake and alert. He denies shortness of breath. - Current Medication List Current Medications: Active Medications Acetaminophen (Tylenol -) 650 mg PO Q6H PRN PRN Reason: PAIN Last Admin: 03/11/16 10:40 Dose: 650 mg Al Hydroxide/Mg Hydroxide (Mylanta Oral Suspension -) 30 ml PO Q6H PRN PRN Reason: DYSPEPSIA Last Admin: 03/10/16 16:17 Dose: 30 ml Albuterol Sulfate (Ventolin 0.083% Nebulizer Soln -) 1 amp NEB Q4H PRN PRN Reason: SHORT OF BREATH/WHEEZING Last Admin: 03/09/16 22:20 Dose: 1 amp Amiodarone HCl (Cordarone -) 200 mg PO DAILY COUNT [facility]CLUDES [facility] Last Admin: 03/11/16 09:20 Dose: 200 mg Aspirin (Asa -) 81 mg PO DAILY [facility] Last Admin: 03/11/16 09:19 Dose: 81 mg Atorvastatin Calcium (Lipitor -) 20 mg PO [facility] Last Admin: 03/10/16 21:39 Dose: 20 mg Budesonide/Formoterol Fumarate (Symbicort 80/4.5mcg -) 2 puff IH BID COUNT INCLUDES [facility] Last Admin: 03/11/16 09:24 Dose: 2 puff Diltiazem HCl (Cardizem Cd -) 120 mg PO HS [facility] Last Admin: 03/10/16 21:39 Dose: 120 mg Docusate Sodium (Colace -) 300 mg PO HS [facility] Last Admin: 03/10/16 21:38 Dose: 300 mg Fenofibric Acid (Trilipix -) 135 mg PO DAILY [facility] Last Admin: 03/11/16 10:41 Dose: 135 mg Isosorbide Mononitrate (Imdur -) 120 mg PO DAILY [facility] Last Admin: 03/11/16 10:41 Dose: 120 mg Metoclopramide HCl (Reglan Injection -) 10 mg IVPB Q8H PRN PRN Reason: NAUSEA AND/OR VOMITING Metoprolol Succinate (Toprol Xl -) 50 mg PO BID COUNT [facility]CLUD[facility] Last Admin: 03/11/16 09:20 Dose: 50 mg Non-Formulary Medication (Linaclotide [Linzess]) 145 mcg PO DAILY COUNT [facility]CLUDES [facility] Non-Formulary Medication (Lubiprostone [Amitiza]) 24 mcg PO DAILY COUNT INCLUDES [facility] [id number] Ethyl Esters (Lovaza -) 1 gm PO BID COUNT [facility]CLUD[facility] Last Admin: 03/11/16 09:22 Dose: 1 gm Oxycodone HCl (Roxicodone -) 10 mg PO Q6H PRN PRN Reason: PAIN Last Admin: 03/11/16 10:39 Dose: 10 mg Pantoprazole Sodium (Protonix -) 40 mg PO DAILY [facility] Last Admin: 03/11/16 11:31 Dose: Not Given Prasugrel (Effient -) 5 mg PO DAILY [facility] Last Admin: 03/11/16 10:43 Dose: 5 mg Ranitidine HCl (Zantac -) 300 mg PO DAILY [facility] Last Admin: 03/11/16 09:20 Dose: 300 mg Ranolazine (Ranexa -) 1,000 mg PO BID COUNT [facility] Last Admin: 03/11/16 09:22 Dose: 1,000 mg Roflumilast (Daliresp -) 500 mcg PO DAILY COUNT [facility] Last Admin: 03/11/16 10:43 Dose: 500 mcg Tamsulosin HCl (Flomax -) 0.4 mg PO DAILY@0830 [facility] Last Admin: 03/11/16 09:19 Dose: 0.4 mg Tiotropium Doss (Spiriva -) 1 puff IH DAILY COUNT [facility]CLUD[facility] Last Admin: 03/11/16 10:41 Dose: Not Given - Objective Vital Signs: Vital Signs Temperature 98 F 03/11/16 05:06 Pulse Rate 72 03/11/16 05:06 Respiratory Rate 18 03/11/16 05:06 Blood Pressure 123/72 03/11/16 05:06 O2 Sat by Pulse Oximetry (%) 96 03/11/16 09:00 Constitutional: Yes: Calm Eyes: Yes: Conjunctiva Clear HENT: Yes: Atraumatic Neck: Yes: Supple Cardiovascular: Yes: S1, S2 Respiratory: Yes: CTA Bilaterally Gastrointestinal: Yes: Soft, Abdomen, Obese Genitourinary: Yes: WNL Musculoskeletal: Yes: WNL Edema: No Neurological: Yes: Oriented Psychiatric: Yes: Oriented Labs: CBC, BMP 03/11/16 05:35 03/11/16 05:35 INR, PTT INR 1.95 (0.82-1.09) H 03/11/16 05:35 Problem List - Problems (1) TRACY (acute kidney injury) Code(s): N17.9 - ACUTE KIDNEY FAILURE, UNSPECIFIED (2) Chest pain Code(s): R07.9 - CHEST PAIN, UNSPECIFIED (3) Dyspnea Code(s): R06.00 - DYSPNEA, UNSPECIFIED Qualifiers: Dyspnea type: orthopnea Qualified Code(s): R06.01 - Orthopnea (4) Elevated troponin Code(s): R79.89 - OTHER SPECIFIED ABNORMAL FINDINGS OF BLOOD CHEMISTRY (5) Hypotension Code(s): I95.9 - HYPOTENSION, UNSPECIFIED (6) CAD (coronary artery disease) Code(s): I25.10 - ATHSCL HEART DISEASE OF [place] CORONARY ARTERY W/O ANG PCTRS (7) COPD (chronic obstructive pulmonary disease) Code(s): J44.9 - CHRONIC OBSTRUCTIVE PULMONARY DISEASE, UNSPECIFIED (8) Hyperlipidemia Code(s): E78.5 - HYPERLIPIDEMIA, UNSPECIFIED (9) Hypertension Code(s): I10 - ESSENTIAL (PRIMARY) HYPERTENSION Assessment/Plan Current Medications Generic Name Dose Route Start Last Admin Trade Name Freq PRN Reason Stop Dose Admin Acetaminophen 650 mg 03/09/16 15:50 03/11/16 10:40 Tylenol - PO 650 mg Q6H PRN Administration PAIN Al Hydroxide/Mg Hydroxide 30 ml 03/09/16 17:15 03/10/16 16:17 Mylanta Oral Suspension - PO 30 ml Q6H PRN Administration DYSPEPSIA Albuterol Sulfate 1 amp 03/09/16 15:50 03/09/16 22:20 Ventolin 0.083% Nebulizer Soln - NEB 1 amp Q4H PRN Administration SHORT OF BREATH/WHEEZING Amiodarone HCl 200 mg 03/10/16 10:00 03/11/16 09:20 Cordarone - PO 200 mg DAILY RENY Administration Aspirin 81 mg 03/10/16 10:00 03/11/16 09:19 Asa - PO 81 mg DAILY RENY Administration Atorvastatin Calcium 20 mg 03/09/16 22:00 03/10/16 21:39 Lipitor - PO 20 mg HS RENY Administration Budesonide/Formoterol Fumarate 2 puff 03/09/16 22:00 03/11/16 09:24 Symbicort 80/4.5mcg - IH 2 puff BID RENY Administration Diltiazem HCl 120 mg 03/10/16 22:00 03/10/16 21:39 Cardizem Cd - PO 120 mg HS RENY Administration Docusate Sodium 300 mg 03/10/16 22:00 03/10/16 21:38 Colace - PO 300 mg HS RENY Administration Fenofibric Acid 135 mg 03/10/16 10:00 03/11/16 10:41 Trilipix - PO 135 mg DAILY RENY Administration Isosorbide Mononitrate 120 mg 03/10/16 10:00 03/11/16 10:41 Imdur - PO 120 mg DAILY RENY Administration Metoclopramide HCl 10 mg 03/09/16 15:50 Reglan Injection - IVPB Q8H PRN NAUSEA AND/OR VOMITING Metoprolol Succinate 50 mg 03/10/16 10:00 03/11/16 09:20 Toprol Xl - PO 50 mg BID RENY Administration Non-Formulary Medication 145 mcg 03/10/16 10:00 Linaclotide [Linzess] PO DAILY RENY Non-Formulary Medication 24 mcg 03/10/16 10:00 Lubiprostone [Amitiza] PO DAILY COUNT INCLUDES [facility] [id number] Ethyl Esters 1 gm 03/09/16 22:00 03/11/16 09:22 Lovaza - PO 1 gm BID RENY Administration Oxycodone HCl 10 mg 03/09/16 15:50 03/11/16 10:39 Roxicodone - PO 10 mg Q6H PRN Administration PAIN Pantoprazole Sodium 40 mg 03/11/16 12:00 03/11/16 11:31 Protonix - PO Not Given DAILY RENY Prasugrel 5 mg 03/10/16 10:00 03/11/16 10:43 Effient - PO 5 mg DAILY RENY Administration Ranitidine HCl 300 mg 03/10/16 10:00 03/11/16 09:20 Zantac - PO 300 mg DAILY RENY Administration Ranolazine 1,000 mg 03/09/16 22:00 03/11/16 09:22 Ranexa - PO 1,000 mg BID RENY Administration Roflumilast 500 mcg 03/10/16 10:00 03/11/16 10:43 Daliresp - PO 500 mcg DAILY RENY Administration Tamsulosin HCl 0.4 mg 03/10/16 08:30 03/11/16 09:19 Flomax - PO 0.4 mg DAILY@0830 RENY Administration Tiotropium Doss 1 puff 03/10/16 10:00 03/11/16 10:41 Spiriva - IH Not Given DAILY RENY Impression 1. TRACY 2. hyponatremia 3. hypotensive episode 4. hx of HTN 5. obesity 6. hyperlipidemia 7. CAD 8. elevated troponin 9. COPD 10. a-fib 11. GERD Plan - renal ultrasound normal - ua reviewed - renal function is improved - TRACY likely from hypotensive episode - recommend give fluids before cath - keep rosalind on hold for now - repeat labs in am Dr Jean
--- NOTE | 2016-03-11 13:51 | PN ---
Progress Note (short form) - Note Progress Note: PULMONARY No shortness of breath or chest pain. Last Vital Signs Temp Pulse Resp BP Pulse Ox 98 F 72 18 123/72 96 03/11/16 05:06 03/11/16 05:06 03/11/16 05:06 03/11/16 05:06 03/11/16 09:00 Gen: NAD, ambulating Heart: RRR Lung: decreased breath sounds at the bases Abd: soft, nontender Ext: no edema CBC, BMP 03/11/16 05:35 03/11/16 05:35 Active Medications Acetaminophen (Tylenol -) 650 mg PO Q6H PRN PRN Reason: PAIN Last Admin: 03/11/16 10:40 Dose: 650 mg Al Hydroxide/Mg Hydroxide (Mylanta Oral Suspension -) 30 ml PO Q6H PRN PRN Reason: DYSPEPSIA Last Admin: 03/10/16 16:17 Dose: 30 ml Albuterol Sulfate (Ventolin 0.083% Nebulizer Soln -) 1 amp NEB Q4H PRN PRN Reason: SHORT OF BREATH/WHEEZING Last Admin: 03/09/16 22:20 Dose: 1 amp Amiodarone HCl (Cordarone -) 200 mg PO DAILY [facility] Last Admin: 03/11/16 09:20 Dose: 200 mg Aspirin (Asa -) 81 mg PO DAILY [facility] Last Admin: 03/11/16 09:19 Dose: 81 mg Atorvastatin Calcium (Lipitor -) 20 mg PO HS [facility] Last Admin: 03/10/16 21:39 Dose: 20 mg Budesonide/Formoterol Fumarate (Symbicort 80/4.5mcg -) 2 puff IH BID [facility] Last Admin: 03/11/16 09:24 Dose: 2 puff Diltiazem HCl (Cardizem Cd -) 120 mg PO HS [facility] Last Admin: 03/10/16 21:39 Dose: 120 mg Docusate Sodium (Colace -) 300 mg PO HS [facility] Last Admin: 03/10/16 21:38 Dose: 300 mg Fenofibric Acid (Trilipix -) 135 mg PO DAILY [facility] Last Admin: 03/11/16 10:41 Dose: 135 mg Isosorbide Mononitrate (Imdur -) 120 mg PO DAILY [facility] Last Admin: 03/11/16 10:41 Dose: 120 mg Metoclopramide HCl (Reglan Injection -) 10 mg IVPB Q8H PRN PRN Reason: NAUSEA AND/OR VOMITING Metoprolol Succinate (Toprol Xl -) 50 mg PO BID [facility] Last Admin: 03/11/16 09:20 Dose: 50 mg Non-Formulary Medication (Linaclotide [Linzess]) 145 mcg PO DAILY [facility] Non-Formulary Medication (Lubiprostone [Amitiza]) 24 mcg PO DAILY [facility] [id number] Ethyl Esters (Lovaza -) 1 gm PO BID [facility] Last Admin: 03/11/16 09:22 Dose: 1 gm Oxycodone HCl (Roxicodone -) 10 mg PO Q6H PRN PRN Reason: PAIN Last Admin: 03/11/16 10:39 Dose: 10 mg Pantoprazole Sodium (Protonix -) 40 mg PO DAILY [facility] Last Admin: 03/11/16 11:31 Dose: Not Given Prasugrel (Effient -) 5 mg PO DAILY [facility] Last Admin: 03/11/16 10:43 Dose: 5 mg Ranitidine HCl (Zantac -) 300 mg PO DAILY [facility] Last Admin: 03/11/16 09:20 Dose: 300 mg Ranolazine (Ranexa -) 1,000 mg PO BID [facility] Last Admin: 03/11/16 09:22 Dose: 1,000 mg Roflumilast (Daliresp -) 500 mcg PO DAILY [facility] Last Admin: 03/11/16 10:43 Dose: 500 mcg Tamsulosin HCl (Flomax -) 0.4 mg PO DAILY@0830 [facility] Last Admin: 03/11/16 09:19 Dose: 0.4 mg Tiotropium [place] (Spiriva -) 1 puff IH DAILY [facility] Last Admin: 03/11/16 10:41 Dose: Not Given A/P Chest Pain CAD s/p CABG/+Troponins/NSTEMI LV Diastolic Dysfunction Atrial Fibrillation s/p Ablation COPD NOREEN Hypotension likely medication related resolved Acute on Chronic Renal Failure - ASA, effient - beta mary, statin - continue anticoagulation - inhaled bronchodilators - IVF - monitor urine output, creatinine - BiPAP at night - for cardiac cath
[2016-03-11] MEDS: DOCUSATE SODIUM 100 MG CAPSULE (FP) PO SCH (21:36)
[2016-03-11] MEDS: ATORVASTATIN CA 20 MG TABLET (FP) PO SCH (21:37)
[2016-03-11] MEDS: MAG HYDROX/AL HYDROX/SIMETH 30 ML UNIT-DOSE CUP PO PRN (22:39)
[2016-03-12] MEDS: MAG HYDROX/AL HYDROX/SIMETH 30 ML UNIT-DOSE CUP PO PRN (04:43)
[2016-03-12 05:55] VITALS: TEMP 98
[2016-03-12] MEDS: ACETAMINOPHEN 325 MG TABLET (FP) PO PRN (06:46)
[2016-03-12] MEDS: oxyCODONE HCL 5 MG TABLET PO PRN (06:47)
[2016-03-12 07:32] LABS: INR 1.58 (0.82-1.09); PROTHROMBIN TIME (PATIENT) 17.5 SEC (9.98-11.88)
[2016-03-12] MEDS: TAMSULOSIN HCL 0.4 MG CAP.ER.24H (FP) PO SCH (08:24)
--- NOTE | 2016-03-12 08:51 | PN ---
Progress Note, Physician History of Present Illness: EVENTS NOTED HAD AN EPISODE OF HYPOTENSION AND ABDOMINAL PAIN--NOW RESOLVED CE NO SIGNIFICANT CHANGE SEEN BY GI AND CARDIO PT OFFERS NO COMPLAINTS TODAY EXCEPT FOR CONSTIPATION - Current Medication List Current Medications: Active Medications Acetaminophen (Tylenol -) 650 mg PO Q6H PRN PRN Reason: PAIN Last Admin: 03/12/16 06:46 Dose: 650 mg Al Hydroxide/Mg Hydroxide (Mylanta Oral Suspension -) 30 ml PO Q6H PRN PRN Reason: DYSPEPSIA Last Admin: 03/12/16 04:43 Dose: 30 ml Albuterol Sulfate (Ventolin 0.083% Nebulizer Soln -) 1 amp NEB Q4H PRN PRN Reason: SHORT OF BREATH/WHEEZING Last Admin: 03/09/16 22:20 Dose: 1 amp Amiodarone HCl (Cordarone -) 200 mg PO DAILY COUNT [facility] Last Admin: 03/11/16 09:20 Dose: 200 mg Aspirin (Asa -) 81 mg PO DAILY COUNT [facility]CLUD[facility] Last Admin: 03/11/16 09:19 Dose: 81 mg Atorvastatin Calcium (Lipitor -) 20 mg PO HS COUNT [facility]CLUD[facility] Last Admin: 03/11/16 21:37 Dose: 20 mg Budesonide/Formoterol Fumarate (Symbicort 80/4.5mcg -) 2 puff IH BID COUNT [facility]CLUD[facility] Last Admin: 03/11/16 21:38 Dose: 2 puff Diltiazem HCl (Cardizem Cd -) 120 mg PO HS COUNT [facility] Last Admin: 03/11/16 21:37 Dose: 120 mg Docusate Sodium (Colace -) 300 mg PO [facility] Last Admin: 03/11/16 21:36 Dose: 300 mg Fenofibric Acid (Trilipix -) 135 mg PO DAILY COUNT [facility] Last Admin: 03/11/16 10:41 Dose: 135 mg Isosorbide Mononitrate (Imdur -) 120 mg PO DAILY COUNT [facility] Last Admin: 03/11/16 10:41 Dose: 120 mg Metoclopramide HCl (Reglan Injection -) 10 mg IVPB Q8H PRN PRN Reason: NAUSEA AND/OR VOMITING Last Admin: 03/12/16 04:30 Dose: 10 mg Metoprolol Succinate (Toprol Xl -) 50 mg PO BID [facility] Last Admin: 03/11/16 21:37 Dose: 50 mg Non-Formulary Medication (Linaclotide [Linzess]) 145 mcg PO DAILY COUNT [facility]CLUD[facility] [id number] Ethyl Esters (Lovaza -) 1 gm PO BID COUNT [facility]CLUD[facility] Last Admin: 03/11/16 21:38 Dose: 1 gm Oxycodone HCl (Roxicodone -) 10 mg PO Q6H PRN PRN Reason: PAIN Last Admin: 03/12/16 06:47 Dose: 10 mg Pantoprazole Sodium (Protonix -) 40 mg PO DAILY [facility] Last Admin: 03/11/16 11:31 Dose: Not Given Polyethylene Glycol (Miralax (For Daily Use) -) 17 gm PO DAILY COUNT [facility]CLUD[facility] Prasugrel (Effient -) 5 mg PO DAILY [facility] Last Admin: 03/11/16 10:43 Dose: 5 mg Ranitidine HCl (Zantac -) 300 mg PO DAILY [facility] Last Admin: 03/11/16 09:20 Dose: 300 mg Ranolazine (Ranexa -) 1,000 mg PO BID [facility] Last Admin: 03/11/16 21:37 Dose: 1,000 mg Roflumilast (Daliresp -) 500 mcg PO DAILY COUNT [facility] Last Admin: 03/11/16 10:43 Dose: 500 mcg Tamsulosin HCl (Flomax -) 0.4 mg PO DAILY@0830 [facility] Last Admin: 03/12/16 08:24 Dose: 0.4 mg Tiotropium [place] (Spiriva -) 1 puff IH DAILY COUNT [facility]CLUD[facility] Last Admin: 03/11/16 10:41 Dose: Not Given Warfarin Sodium (Coumadin -) 4 mg PO DAILY@1800 [facility]CLUDES [facility] - Objective Vital Signs: Vital Signs Temperature 98 F 03/12/16 05:54 Pulse Rate 70 03/12/16 05:54 Respiratory Rate 20 03/12/16 05:54 Blood Pressure 131/53 03/12/16 05:54 O2 Sat by Pulse Oximetry (%) 98 03/11/16 23:27 Cardiovascular: Yes: Regular Rate and Rhythm Respiratory: Yes: Regular, CTA Bilaterally Gastrointestinal: Yes: Normal Bowel Sounds, Soft. No: Tenderness Edema: No Labs: CBC, BMP 03/11/16 05:35 03/11/16 05:35 INR, PTT INR 1.58 (0.82-1.09) H 03/12/16 05:35 Problem List - Problems (1) Chest pain Assessment/Plan: PAIN FREE NOW CE POSITIVE--FOLLOW-- TRENDING DOWN CONTINUE WITH MEDS CARDIO CONSULT NOTED-- DISCUSSED WITH CARDIO CATH TODAY LAST STENT 2013 COUMADIN/EFFIENT/ASA ON METOPROLOL/CRADIZEM AND IMDUR Code(s): R07.9 - CHEST PAIN, UNSPECIFIED (2) Elevated troponin Assessment/Plan: FOLLOW LABS--FOR CATH Code(s): R79.89 - OTHER SPECIFIED ABNORMAL FINDINGS OF BLOOD CHEMISTRY (3) Dyspnea Assessment/Plan: CONBO--COPD AND CAD PULM AND CARDIO Code(s): R06.00 - DYSPNEA, UNSPECIFIED Qualifiers: Dyspnea type: orthopnea Qualified Code(s): R06.01 - Orthopnea (4) Atrial fibrillation Assessment/Plan: RATE CONTROLLED ON AMIO AND AC INR, PTT INR 2.71 (0.82-1.09) H 03/10/16 05:15 Code(s): I48.91 - UNSPECIFIED ATRIAL FIBRILLATION (5) COPD (chronic obstructive pulmonary disease) Assessment/Plan: NEBS DALIRES Code(s): J44.9 - CHRONIC OBSTRUCTIVE PULMONARY DISEASE, UNSPECIFIED (6) History of coronary artery stent placement Assessment/Plan: ABOVE Code(s): Z95.5 - PRESENCE OF CORONARY ANGIOPLASTY IMPLANT AND GRAFT (7) Hypotension Assessment/Plan: RESOLVED MEDS ADJUSTED LOPRESSOR 50 BID CARDIZEM CD 120 HS IMDUR 120 AM HOLD LASIX AND TATI Code(s): I95.9 - HYPOTENSION, UNSPECIFIED (8) TRACY (acute kidney injury) Assessment/Plan: IMPROVED--CR 1.3 MAYBE DUE TO HYPOTENSIVE EPISODE MAYTE HOLD DIURETICS AND TATI MONITOR RENAL Code(s): N17.9 - ACUTE KIDNEY FAILURE, UNSPECIFIED (9) Constipation Assessment/Plan: MEDS ADJUSTED FUA Code(s): K59.00 - CONSTIPATION, UNSPECIFIED
[2016-03-12 09:40] VITALS: BP 136/68
[2016-03-12] MEDS ORDERED: BISACODYL 5 MG TABLET.DR (FP) PO ONE (09:49)
[2016-03-12] MEDS ORDERED: PT OWN MED DRAWER 7, Y5N ONE (09:59)
[2016-03-12] MEDS ORDERED: POLYETHYLENE GLYCOL 3350 119 GM BTL PO SCH ×2 (10:00)
[2016-03-12] MEDS ORDERED: SIMETHICONE 80 MG TAB.CHEW (FP) PO SCH (10:00)
[2016-03-12] MEDS: RANOLAZINE E.R. 1,000 MG TABLET (FP) PO SCH (10:02)
[2016-03-12] MEDS: ASPIRIN 81 MG CHEWABLE TABLETS PO SCH (10:02)
[2016-03-12] MEDS: RANITIDINE HCL 150 MG TABLET (FP) PO SCH (10:02)
[2016-03-12] MEDS: METOPROLOL SUCCINATE 50 MG TAB.SR.24H (FP) PO SCH (10:02)
[2016-03-12] MEDS: AMIODARONE HCL 200 MG TABLET (FP) PO SCH (10:02)
[2016-03-12] MEDS: ISOSORBIDE MONONITRATE 60 MG TAB.SR.24H (FP) PO SCH (10:03)
[2016-03-12] MEDS: PRASUGREL HCL 5 MG TAB PO SCH (10:03)
[2016-03-12] MEDS: PANTOPRAZOLE 40 MG TABLET (FP) PO SCH (10:03)
[2016-03-12] MEDS: ROFLUMILAST 500 MCG TABLET PO SCH (10:03)
[2016-03-12] MEDS: FENOFIBRIC ACID 135 MG CAP PO SCH (10:03)
[2016-03-12] MEDS: OMEGA-3 ACID ETHYL ESTERS (FATTY-ACIDS) 1 GM CAPSULE (FP) PO SCH (10:03)
[2016-03-12] MEDS: BUDESONIDE/FORMETEROL FUMARATE 80/4.5 mcg INHALER IH SCH (10:04)
[2016-03-12] MEDS: TIOTROPIUM BROMIDE 18 MCG/INH (DEVICE W/ 5 CAPSULES) IH SCH (10:05)
[2016-03-12 12:14] VITALS: PULSE 61
[2016-03-12] MEDS ORDERED: WARFARIN NA 2 MG TABLET (UD) PO SCH (18:00)
== END 2016-03-12 13:37 | disposition short-term general hospital (02) | DRG 303 ==
LOC: JER 03:00 → UNDOADMIN 04:46 → JERBED 04:46 → J4W 14:41 → JICU 03-09 15:12 → J4W 03-10 17:06
PROVIDERS: ADMIT Family Medicine; ATTEND Family Medicine
DX: I25.110 Atherosclerotic heart disease of native coronary artery with unstable angina pectoris (principal); I50.32 Chronic diastolic (congestive) heart failure; Z68.41 Body mass index [BMI] 40.0-44.9, adult; N17.9 Acute kidney failure, unspecified; Z95.5 Presence of coronary angioplasty implant and graft; I25.2 Old myocardial infarction; I35.0 Nonrheumatic aortic (valve) stenosis; I48.91 Unspecified atrial fibrillation; Z79.01 Long term (current) use of anticoagulants; K21.9 Gastro-esophageal reflux disease without esophagitis; E78.5 Hyperlipidemia, unspecified; J44.9 Chronic obstructive pulmonary disease, unspecified; I11.0 Hypertensive heart disease with heart failure; R79.89 Other specified abnormal findings of blood chemistry; G47.33 Obstructive sleep apnea (adult) (pediatric); M54.9 Dorsalgia, unspecified; I95.9 Hypotension, unspecified; R61 Generalized hyperhidrosis; E66.9 Obesity, unspecified; Z71.3 Dietary counseling and surveillance; R07.9 Chest pain, unspecified; K59.00 Constipation, unspecified
CPT/HCPCS: 36415; 71010-TC; 74000-TC; 76775-TC; 76856-TC; 80048; 80053; 80061; 80076; 81003; 82436; 82550; 82570; 83690; 83721; 83880; 84133; 84300; 84439; 84443; 84481; 84484; 85025; 85027; 85610; 85730; 93005; 93010; 93306-TC; 94640; 94660; 99285-25

== ENCOUNTER 2016-05-31 11:36 | Emergency (ER) | payer OTHER ==
[2016-05-31 11:41] VITALS: TEMP 97.8; BMI 39.1
--- NOTE | 2016-05-31 12:13 | PDOC ---
History of Present Illness - General Chief Complaint: Pain Stated Complaint: FALL/ RIB PAIN, DIFFICULTY BREATHING Time Seen by Provider: 05/31/16 12:02 History Source: Patient Exam Limitations: No Limitations - History of Present Illness Initial Comments: 05/31/16 12:13 CHIEF COMPLAINT: Rib pain HISTORY OF PRESENT ILLNESS: This is a 61 year old male with a history of CAD s/ p stents x 14, A. fib s/p ablation, NOREEN, HLD, and GERD who presents complaining of right rib pain and pain with deep breathing after a mechanical fall onto his right side about one week ago. He denies dyspnea, cough/hemoptysis, or any other symptoms. He takes oxycodone at home which has not relieved the pain. V/s on arrival are unremarkable. PCP is Dr. Nolan. REVIEW OF SYSTEMS: GENERAL/CONSTITUTIONAL: No fever or chills. No weakness. No weight change. HEAD, EYES, EARS, NOSE AND THROAT: No change in vision. No ear pain or discharge. No sore throat. CARDIOVASCULAR: No chest pain or palpitations. RESPIRATORY: Pain with deep breathing. No cough, wheezing, or shortness of breath. GASTROINTESTINAL: No nausea, vomiting, diarrhea or constipation. GENITOURINARY: No dysuria, frequency, or change in urination. MUSCULOSKELETAL: Right rib pain s/p fall. SKIN: No rash or easy bruising. NEUROLOGIC: No headache, vertigo, loss of consciousness, or loss of sensation. PSYCHIATRIC: No depression or anxiety. ENDOCRINE: No increased thirst. No abnormal weight change. HEMATOLOGIC/LYMPHATIC: No anemia, easy bleeding, or history of blood clots. ALLERGIC/IMMUNOLOGIC: No hives or skin allergy. No latex allergy. PHYSICAL EXAM: GENERAL: The patient is awake, alert, and fully oriented, in no acute distress. HEAD: Normal with no signs of trauma. ENT: Pupils equal, round and reactive to light, extraocular movements intact, sclera anicteric, conjunctiva clear. Neck supple. LUNGS: Clear to auscultation bilaterally. Normal excursion. No respiratory distress or use of accessory muscles. CV: RRR, S1/S2, no MRG. Cap refill < 2 sec. ABDOMEN: Soft, non-distended, non-tender. Small ecchymoses over right 6th and 10th ribs. EXTREMITIES: Normal range of motion, no edema. NEUROLOGICAL: Normal speech, normal gait. CN II-XII grossly intact. PSYCH: Normal mood, normal affect. SKIN: Warm, dry, normal turgor, no rashes or lesions noted. Past History - Past Medical History Allergies/Adverse Reactions: Allergies Allergy/AdvReac Type Severity Reaction Status Date / Time levofloxacin [From Levaquin] Allergy Intermediate Swelling Verified 05/31/16 11: 41 Home Medications: Ambulatory Orders Albuterol 0.083% Nebulizer [place]ine [Ventolin 0.083% Nebulizer Soln -] 1 amp NEB HS 05/31/16 Albuterol Sulfate [Proair Respiclick] 90 mcg IH PRN PRN 05/31/16 Amiodarone HCl 200 mg PO DAILY 05/31/16 Aspirin [ASA -] 81 mg PO DAILY 05/31/16 Beclomethasone Dipropionate [Qvar] 2 puff IH BID 05/31/16 Dexlansoprazole [Dexilant] 60 mg PO DAILY 05/31/16 Diltiazem HCl [Diltiazem ER] 120 mg PO DAILY 05/31/16 Famotidine [Pepcid] 40 mg PO DAILY 05/31/16 Fenofibrate Nanocrystallized [Tricor] 160 mg PO DAILY 05/31/16 Furosemide [Lasix] 40 mg PO DAILY 05/31/16 Isosorbide Mononitrate [Isosorbide Mononitrate ER] 120 mg PO DAILY 05/31/16 Lidocaine 5% Patch [Lidoderm -] 1 patch TP DAILY #30 patch 05/31/16 Linaclotide [Linzess] 145 mcg PO BID 05/31/16 Lisinopril [Prinivil] 10 mg PO DAILY 05/31/16 Metoprolol Succinate [Toprol Xl] 100 mg PO DAILY 05/31/16 Nitroglycerin [employer] [Nitrolingual] 1 spray TL PRN PRN 05/31/16 Sasser-3 Acid Ethyl Esters [Lovaza] 1 gm PO BID 05/31/16 Oxycodone HCl 30 mg PO DAILY 05/31/16 Oxycodone HCl/Acetaminophen [Percocet 10-325 mg Tablet] 1 each PO BID 05/31/16 Pantoprazole Sodium [Protonix] 40 mg PO DAILY 05/31/16 Prasugrel HCl [Effient] 5 mg PO HS 05/31/16 Pravastatin Sodium [Pravachol (Nf)] 80 mg PO HS 05/31/16 Ranitidine HCl [Zantac] 150 mg PO HS 05/31/16 Ranolazine [Ranexa] 1,000 mg PO BID 05/31/16 Roflumilast [Daliresp] 500 mcg PO HS 05/31/16 Tiotropium Br/Olodaterol HCl [Stiolto Respimat Inhal [employer]] 2.5 gm IH BID Warfarin Sodium [Coumadin] 4 mg PO HS 05/31/16 Anemia: No Asthma: No Cancer: No Cardiac Disorders: Yes (A FIB, NC) CVA: No COPD: Yes CHF: Yes Dementia: No Diabetes: No GI Disorders: Yes (ACID REFLUX) Disorders: No HTN: Yes Hypercholesterolemia: Yes Liver Disease: No Suicide Attempt (Hx): No Seizures: No Thyroid Disease: No - Surgical History Cardiac Surgery: Yes (13 stent placements & CARDIAC ABLIATION 01/2014) - Immunization History Immunization Up to Date: Yes - Psycho/Social/Smoking Cessation Hx Anxiety: No Suicidal Ideation: No Smoking Status: No Smoking History: Never smoked Have you smoked in the past 12 months: No Number of Cigarettes Smoked Daily: 0 If you are a former smoker, when did you quit?: 1990 Information on smoking cessation initiated: No Hx Alcohol Use: No Drug/Substance Use Hx: No Substance Use Type: None Hx Substance Use Treatment: No *Physical Exam - Vital Signs Last Vital Signs Temp Pulse Resp BP Pulse Ox 97.8 F 57 L 18 111/61 97 05/31/16 11:37 05/31/16 11:37 05/31/16 11:37 05/31/16 11:37 05/31/16 11:37 ED Treatment Course - RADIOLOGY Radiology Studies Ordered: Category Date Time Status CHEST PA & LAT [RAD] Stat Radiology 05/31/16 12:13 Ordered RIBS RIGHT SIDE [RAD] Stat Radiology 05/31/16 12:13 Ordered Medical Decision Making - Medical Decision Making 05/31/16 13:55 A/P: 61 year old male with persistent right rib pain/pain with deep breathing s/ p fall one week ago. -Rib xray reviewed: no fracture -CXR reviewed: some right base atelectasis, no PTX -Lidoderm patch applied -Incentive spirometry reviewed -Patient agrees to follow up with PCP; will return for new or worsening symptoms *DC/Admit/Observation/Transfer Diagnosis at time of Disposition: Contusion of rib on right side Qualifiers: Encounter type: initial encounter Qualified Code(s): S20.211A - Contusion of right front wall of thorax, initial encounter - Discharge Dispostion Admit: No - Prescriptions Prescriptions: Lidocaine 5% Patch [Lidoderm -] 1 patch TP DAILY #30 patch - Referrals Referrals: Bari Nolan MD [Primary Care Provider] - 3 days - Patient Instructions Printed Discharge Instructions: DI for Rib Contusion Additional Instructions: -Rib xray did not show a fracture, and chest xray did not show a pneumothorax ( punctured lung) -Continue oxycodone and add lidoderm patches as prescribed for pain control -Use the incentive spirometer at least 4 times a day to prevent pneumonia as discussed -Follow up with Dr. Nolan this week -Return for difficulty breathing or any other concerning symptoms
[2016-05-31] MEDS ORDERED: LIDOCAINE 5% TOPICAL PATCH TP ONE (12:14)
[2016-05-31] MEDS ORDERED: morphine CARPU-JECT 4 MG/1 ML DISP.SYRIN IM ONE (13:07)
[2016-05-31] MEDS ORDERED: morphine CARPU-JECT 4 MG/1 ML DISP.SYRIN ONE (13:26)
[2016-05-31 13:57] VITALS: BP 106/64; PULSE 50
== END 2016-05-31 13:57 | disposition home or self-care (01) ==
LOC: JER 11:36
PROC: 3E023NZ Introduction of Analgesics, Hypnotics, Sedatives into Muscle, Percutaneous Approach (ICD-10-PCS; principal; 2016-05-31)
DX: S20.211A Contusion of right front wall of thorax, initial encounter (principal); W19.XXXA Unspecified fall, initial encounter; Y93.89 Activity, other specified; Y92.018 Other place in single-family (private) house as the place of occurrence of the external cause; I25.2 Old myocardial infarction; I25.10 Atherosclerotic heart disease of native coronary artery without angina pectoris; I10 Essential (primary) hypertension; Z95.5 Presence of coronary angioplasty implant and graft; I48.91 Unspecified atrial fibrillation; Z79.01 Long term (current) use of anticoagulants; J44.9 Chronic obstructive pulmonary disease, unspecified; E78.00 Pure hypercholesterolemia, unspecified
CPT/HCPCS: 71020-TC; 71101-TC-RT; 99283-25

== ENCOUNTER 2016-06-01 18:58 | Emergency (ER) | payer OTHER ==
[2016-06-01 19:14] VITALS: TEMP 98.4; BMI 39.1
[2016-06-01] MEDS ORDERED: morphine CARPU-JECT 2 MG/1 ML DISP.SYRIN IVPUSH ONE (20:23)
[2016-06-01] MEDS ORDERED: ONDANSETRON 4 MG/2 ML VIAL IVPB ONE (20:23)
[2016-06-01] MEDS ORDERED: ONDANSETRON 4 MG/2 ML VIAL ONE (20:36)
[2016-06-01] MEDS ORDERED: morphine CARPU-JECT 2 MG/1 ML DISP.SYRIN ONE (20:36)
--- NOTE | 2016-06-01 21:00 | PDOC ---
History of Present Illness - General Chief Complaint: Shortness of Breath Stated Complaint: SOB/RT RIBCAGE PAIN Time Seen by Provider: 06/01/16 19:36 History Source: Patient, Significant Other Exam Limitations: No Limitations - History of Present Illness Initial Comments: 06/01/16 20:55 61yo Male patient w/ PmHx: HTN, COPD, Sleep Apnea, Afib w/ Ablation, Cardiac Stents x 14, HLD, GERD, taking Coumadin, ASA, Effient presents to ED c/o right rib pain w/ SOB. Patient states he was seen yesterday for same symptoms and is having worsening pain and breathing. Patient states approx. 10 days ago while exiting his car, he tripped and fell. He denies head injury, or LOC. Patient states he was diagnosed with rib contusion yesterday, he is taking pain medications with no relief. Patient denies any other complaints at this time. PCP-- Chavez Mejia Timing/Duration: reports: changing over time, getting worse Severity: reports: moderate Possible Cause: No: no prior episodes, other, allergen exposure, chronic episodes, frequent episodes, illness exposure, irritant gases exposure, occasional episodes, smoke exposure, unknown cause Associated Symptoms: denies: denies symptoms, chest pain/soreness, cough, dizziness, earache, facial pain, fever/chills, headache, lightheadedness, muscle aches, nasal congestion, nasal drainage, shortness of breath, sinus infection, sore throat, wheezing, other Aspirin Received prior to arrival: Yes: provided at home ASA Contraindications(Core Measure): Yes: Receiving Warfarin Beta Mary Contraindications(Core Measure): No: Not Prescribed, Allergy, Bradycardia (HR <60bpm), Advanced Heart Block, Pacemaker, Other Beta Mary Given by EMS(Core Measure): No Beta Mary Taken at Home(Core Measure): No Beta Mary Not Indicated at this Time(Core Measure): No Past History - Travel Traveled outside of the country in the last 30 days: No Close contact w/someone who was outside of country & ill: No - Past Medical History Allergies/Adverse Reactions: Allergies Allergy/AdvReac Type Severity Reaction Status Date / Time levofloxacin [From Levaquin] Allergy Intermediate Swelling Verified 06/01/16 19: 10 Home Medications: Ambulatory Orders Albuterol 0.083% Nebulizer Pauline [Ventolin 0.083% Nebulizer Soln -] 1 amp NEB HS 05/31/16 Albuterol Sulfate [Proair Respiclick] 90 mcg IH PRN PRN 05/31/16 Amiodarone HCl 200 mg PO DAILY 05/31/16 Aspirin [ASA -] 81 mg PO DAILY 05/31/16 Beclomethasone Dipropionate [Qvar] 2 puff IH BID 05/31/16 Dexlansoprazole [Dexilant] 60 mg PO DAILY 05/31/16 Diltiazem HCl [Diltiazem ER] 120 mg PO DAILY 05/31/16 Famotidine [Pepcid] 40 mg PO DAILY 05/31/16 Fenofibrate Nanocrystallized [Tricor] 160 mg PO DAILY 05/31/16 Furosemide [Lasix] 40 mg PO DAILY 05/31/16 Isosorbide Mononitrate [Isosorbide Mononitrate ER] 120 mg PO DAILY 05/31/16 Lidocaine 5% Patch [Lidoderm -] 1 patch TP DAILY #30 patch 05/31/16 Linaclotide [Linzess] 145 mcg PO BID 05/31/16 Lisinopril [Prinivil] 10 mg PO DAILY 05/31/16 Metoprolol Succinate [Toprol Xl] 100 mg PO DAILY 05/31/16 Nitroglycerin [place] [Nitrolingual] 1 spray TL PRN PRN 05/31/16 [place]-3 Acid Ethyl Esters [Lovaza] 1 gm PO BID 05/31/16 Oxycodone HCl 30 mg PO DAILY 05/31/16 Oxycodone HCl/Acetaminophen [Percocet 10-325 mg Tablet] 1 each PO BID 05/31/16 Pantoprazole Sodium [Protonix] 40 mg PO DAILY 05/31/16 Prasugrel HCl [Effient] 5 mg PO HS 05/31/16 Pravastatin Sodium [Pravachol (Nf)] 80 mg PO HS 05/31/16 Ranitidine HCl [Zantac] 150 mg PO HS 05/31/16 Ranolazine [Ranexa] 1,000 mg PO BID 05/31/16 Roflumilast [Daliresp] 500 mcg PO HS 05/31/16 Tiotropium Br/Olodaterol HCl [Stiolto Respimat Inhal [place]] 2.5 gm IH BID Warfarin Sodium [Coumadin] 4 mg PO HS 05/31/16 Amoxicillin/Potassium Clav [Augmentin 875-125 Tablet] 1 each PO Q12H #14 tablet 06/01/16 Methocarbamol [Robaxin -] 750 mg PO QID PRN #28 tablet 06/01/16 Anemia: No Asthma: No Cancer: No Cardiac Disorders: Yes (A FIB, [place]) CVA: No COPD: Yes CHF: Yes Dementia: No Diabetes: No GI Disorders: Yes (ACID REFLUX) Disorders: No HTN: Yes Hypercholesterolemia: Yes Liver Disease: No Suicide Attempt (Hx): No Seizures: No Thyroid Disease: No - Surgical History Cardiac Surgery: Yes (13 stent placements & CARDIAC ABLIATION 01/2014) - Immunization History Immunization Up to Date: Yes - Psycho/Social/Smoking Cessation Hx Anxiety: No Suicidal Ideation: No Smoking Status: No Smoking History: Never smoked Have you smoked in the past 12 months: No Number of Cigarettes Smoked Daily: 0 If you are a former smoker, when did you quit?: 1990 Hx Alcohol Use: No Drug/Substance Use Hx: No Substance Use Type: None Hx Substance Use Treatment: No Respiratory Specific PMHX - Complaint Specific PMHX Angina: No Bronchitis: No Pneumonia: No Pulmonary Embolus: No TB (Tuberculosis): No Review of Systems - Review of Systems Able to Perform ROS?: Yes Is the patient limited Pashto proficient: No Constitutional: No: Chills, Fever Respiratory: Yes: Cough, Orthopnea, Shortness of Breath. No: Stridor, Wheezing , Productive cough, Hemoptysis Cardiac (ROS): No: Chest Pain, Edema, Irregular Heart Rate, Lightheadedness, Palpitations, Syncope, Chest Tightness ABD/GI: Yes: Abdominal Distended. No: Constipated, Diarrhea, Nausea, Rectal Bleeding, Vomiting, Abdominal cramping : No: Dysuria Musculoskeletal: Yes: Other (Right Rib Pain). No: Back Pain Integumentary: Yes: Bruising. No: Erythema Neurological: No: Headache, Numbness, Paresthesia, Seizure, Tremors, Weakness, Unsteady Gait, Ataxia, Dizziness All Other Systems: Reviewed and Negative *Physical Exam - Vital Signs Last Vital Signs Temp Pulse Resp BP Pulse Ox 98.4 F 68 19 142/70 98 06/01/16 19:10 06/01/16 19:10 06/01/16 19:10 06/01/16 19:10 06/01/16 19:10 - Physical Exam General Appearance: Yes: Nourished, Appropriately Dressed, Mild Distress. No: Apparent Distress, Moderate Distress, Severe Distress Neck: positive: Trachea midline, Supple. negative: Stridor, Lymphadenopathy (R) , Lymphadenopathy (L) Respiratory/Chest: positive: Decreased Breath Sounds. negative: Crackles, Stridor, Wheezing Cardiovascular: positive: Regular Rhythm, Regular Rate Gastrointestinal/Abdominal: positive: Normal Bowel Sounds, Soft, Distended. negative: Guarding, Rebound, Tenderness Musculoskeletal: positive: Other (Bruising noted to right lateral (Ribs) over 6th and 9th. Circular fashion.) Extremity: positive: Normal Capillary Refill, Normal Inspection, Normal Range of Motion Integumentary: positive: Normal Color, Dry, Warm Neurologic: positive: search specialist II-XII NML intact, Fully Oriented, Alert, Normal Mood/ Affect, Normal Response, Motor Strength 07/02 ED Treatment Course - LABORATORY CBC & Chemistry Diagram: 06/01/16 21:00 06/01/16 21:00 - RADIOLOGY Radiology Studies Ordered: Category Date Time Status CHEST CT WITH CONTRAST [CT] Stat CT Scan 06/01/16 20:18 Ordered *DC/Admit/Observation/Transfer Diagnosis at time of Disposition: Rib fractures Qualifiers: Encounter type: subsequent encounter Rib fracture type: multiple ribs Fracture type: closed Laterality: right Fracture healing: with nonunion Qualified Code(s) : S22.41XK - Multiple fractures of ribs, right side, subsequent encounter for fracture with nonunion - Discharge Dispostion Disposition: HOME Condition at time of disposition: Stable Admit: No - Prescriptions Prescriptions: Amoxicillin/Potassium Clav [Augmentin 875-125 Tablet] 1 each PO Q12H #14 tablet Methocarbamol [Robaxin -] 750 mg PO QID PRN #28 tablet PRN Reason: rib pain - Patient Instructions Printed Discharge Instructions: DI for Rib Fracture Additional Instructions: FOLLOW UP WITH YOUR PRIMARY CARE PROVIDER. CALL TO SCHEDULE APPOINTMENT THIS WEEK FOR FURTHER EVALUATION. USE YOUR INCENTIVE SPIROMETRY EVERY 4 HOURS FOR 15 MINS. TAKE MEDICATIONS PRESCRIBED. RETURN IF YOUR SYMPTOMS WORSEN OR ANY CONCERNS FOR FURTHER EVALUATION. DRINK PLENTY FLUIDS. Print Language: UKRAINIAN
[2016-06-01 21:12] LABS: BASOPHIL 0.7 % (0-2.0); EOSINOPHIL 2.8 % (0-4.5); MCH 26.6 pg (25.7-33.7); MCHC 33.5 g/dl (32.0-35.9); MEAN CELL VOLUME 79.3 fl (80-96); MEAN PLT VOLUME 7.4 fl (7.5-11.1); NEUTROPHILS 65.6 % (42.8-82.8); PLATELET COUNT 223 K/MM3 (134-434); RDW 15.7 % (11.9-15.9); WHITE BLOOD COUNT 6.5 K/mm3 (4.0-10.0)
[2016-06-01 21:43] LABS: ALBUMIN 3.7 g/dl (3.4-5.0); ANION GAP 6 (8-16); BILIRUBIN,TOTAL 0.3 mg/dL (0.2-1.0); CALCIUM 8.8 mg/dL (8.5-10.1); CO2 30 mmol/L (21-32); CREATININE 1.1 mg/dL (0.7-1.3); GLUCOSE,RANDOM 98 mg/dL (74-106); SGOT/AST 13 U/L (15-37); SGPT/ALT 23 U/L (12-78); TOT PROT 7.1 g/dl (6.4-8.2)
[2016-06-01 21:44] LABS: ALK PHOS 50 U/L (45-117)
[2016-06-01 21:46] LABS: TROPONIN I 0.03 ng/ml (0.00-0.05)
--- NOTE | 2016-06-01 22:46 | PDOC ---
*Physical Exam - Vital Signs Last Vital Signs Temp Pulse Resp BP Pulse Ox 98.4 F 68 19 142/70 98 06/01/16 19:10 06/01/16 19:10 06/01/16 19:10 06/01/16 19:10 06/01/16 19:10 ED Treatment Course - LABORATORY CBC & Chemistry Diagram: 06/01/16 21:00 06/01/16 21:00 - ADDITIONAL ORDERS Additional order review: Laboratory Results 06/01/16 06/01/16 21:00 21:00 Sodium 140 Potassium 4.0 Chloride 104 Carbon Dioxide 30 Anion Gap 6 L BUN 16 Creatinine 1.1 Creat Clearance w eGFR > 60 Random Glucose 98 Calcium 8.8 Total Bilirubin 0.3 D AST 13 L D ALT 23 Alkaline Phosphatase 50 D Creatine Kinase 101 Troponin I 0.03 D Total Protein 7.1 Albumin 3.7 06/01/16 21:00 RBC 4.76 D MCV 79.3 L MCHC 33.5 RDW 15.7 MPV 7.4 L Neutrophils % 65.6 Lymphocytes % 20.0 Monocytes % 10.9 H Eosinophils % 2.8 Basophils % 0.7 - Medications Given in the ED: ED Medications Discontinued Medications Generic Name Dose Route Start Last Admin Trade Name Freq PRN Reason Stop Dose Admin Morphine Sulfate 2 mg 06/01/16 20:23 06/01/16 21:04 Morphine Injection - IVPUSH 06/01/16 20:24 2 mg ONCE ONE Administration Ondansetron HCl 4 mg 06/01/16 20:23 06/01/16 21:04 Zofran Injection IVPB 06/01/16 20:24 4 mg ONCE ONE Administration Medical Decision Making - Medical Decision Making 06/01/16 22:46 agree with care from JAYNE Ospina *DC/Admit/Observation/Transfer Diagnosis at time of Disposition: Rib fractures - Discharge Dispostion Disposition: HOME - Prescriptions Prescriptions: Amoxicillin/Potassium Clav [Augmentin 875-125 Tablet] 1 each PO Q12H #14 tablet Methocarbamol [Robaxin -] 750 mg PO QID PRN #28 tablet PRN Reason: rib pain - Referrals Referrals: Bari Nolan MD [Primary Care Provider] - - Patient Instructions Printed Discharge Instructions: DI for Rib Fracture Additional Instructions: FOLLOW UP WITH YOUR PRIMARY CARE PROVIDER. CALL TO SCHEDULE APPOINTMENT THIS WEEK FOR FURTHER EVALUATION. USE YOUR INCENTIVE SPIROMETRY EVERY 4 HOURS FOR 15 MINS. TAKE MEDICATIONS PRESCRIBED. RETURN IF YOUR SYMPTOMS WORSEN OR ANY CONCERNS FOR FURTHER EVALUATION. DRINK PLENTY FLUIDS. Print Language: CANADIAN
[2016-06-01] MEDS ORDERED: METHOCARBAMOL 750 MG TAB PO ONE (23:47)
[2016-06-01] MEDS ORDERED: AMOX TR/POT CLAV 875MG/125MG TABLETS (FP) PO ONE (23:47)
[2016-06-01] MEDS ORDERED: AMOX TR/POT CLAV 875MG/125MG TABLETS (FP) ONE (23:53)
[2016-06-01] MEDS ORDERED: METHOCARBAMOL 500 MG TABLET ONE (23:53)
[2016-06-02 04:21] VITALS: BP 134/68; PULSE 70
--- NOTE | 2016-06-02 13:01 | EKG ---
Test Reason : Blood Pressure : / mmHG Vent. Rate : 067 BPM Atrial Rate : 067 BPM P-R Int : 212 ms QRS Dur : 158 ms QT Int : 478 ms P-R-T Axes : 076 -82 036 degrees QTc Int : 505 ms SINUS RHYTHM WITH 1ST DEGREE A-V BLOCK RIGHT BUNDLE BRANCH BLOCK LEFT ANTERIOR FASCICULAR BLOCK BIFASCICULAR BLOCK LATERAL INFARCT , AGE UNDETERMINED ABNORMAL ECG WHEN COMPARED WITH ECG OF 09-MAR-2016 15:32, NO SIGNIFICANT CHANGE WAS FOUND Confirmed by HECTOR GUADALUPE, SCOTT ([id number]) on 06/02/2016 1:01:20 PM Referred By: Confirmed By:SCOTT YOUNG MD
== END 2016-06-02 | disposition home or self-care (01) ==
LOC: JER 18:58
PROC: 3E033NZ Introduction of Analgesics, Hypnotics, Sedatives into Peripheral Vein, Percutaneous Approach (ICD-10-PCS; principal; 2016-06-01)
PROC: 3E033GC Introduction of Other Therapeutic Substance into Peripheral Vein, Percutaneous Approach (ICD-10-PCS; 2016-06-01)
DX: S22.41XD Multiple fractures of ribs, right side, subsequent encounter for fracture with routine healing (principal); W17.89XD Other fall from one level to another, subsequent encounter; I25.2 Old myocardial infarction; I10 Essential (primary) hypertension; Z95.5 Presence of coronary angioplasty implant and graft; I48.91 Unspecified atrial fibrillation; Z79.01 Long term (current) use of anticoagulants; J44.9 Chronic obstructive pulmonary disease, unspecified; E78.00 Pure hypercholesterolemia, unspecified; K21.9 Gastro-esophageal reflux disease without esophagitis
CPT/HCPCS: 36415; 71260-TC; 80053; 82550; 84484; 85025; 93005; 93010; 99283-25

== ENCOUNTER 2016-06-15 04:13 | Inpatient (IN) | payer OTHER ==
--- NOTE | 2016-06-15 04:27 | PDOC ---
History of Present Illness - General Stated Complaint: SOB, CHEST PAIN Time Seen by Provider: 06/15/16 04:15 History Source: Patient, Family Exam Limitations: No Limitations - History of Present Illness Initial Comments: 06/15/16 04:22 61yo Male patient w/ significant past medical history that includes: COPD, Cardiac Stents x 14, HLD, Afib w/ ablation, Sleep Apnea, HTN, and GERD presents to ED c/o chest pains/chest pressure. Patient states symptoms began 3 am this morning w/ associated shortness of breath. Patient states he took all his medications but still has pressure. He current takes Coumadin, Effient, and ASA as anticoagulants. Denies back pain, diff breathing, rash, fever, dysuria, hematuria, or any other complaints at this time. Chavez Mejia PCP Presenting Symptoms: Chest Pain, Short of Breath Timing/Duration: reports: getting worse Severity/Quality: reports: moderate, pressure Location: reports: substernal. denies: central, epigastric, shoulder, back, abdomen, other Chest Pain Radiation: denies: no radiation, jaw, arms, neck, shoulders, back, sternal notch, epigastric, other Activities at Onset: reports: no specific activity Prior Chest Pain/Cardiac Workup: reports: Cardiac Cath, Other (Stent Placement) Modifying Factors: worse with: antacids, breathing, coughing, defecating, eating , exercise, lying down, morphine, movement, nitroglycerin, oxygen, palpation, rest, other Nitro Today/Relief: No: no nitro taken today, 0.4 mg x 1, 0.4 mg x 2, 0.4 mg x 3 , 0.4 mg x 4, provided by EMS, provided by ED, provided at home, no relief, mild relief, complete relief Aspirin Received prior to arrival (Core Measure): Yes: 81 mg x 4 Beta Mary given by EMS (Core Measure): Yes Beta Mary taken at Home (Core Measure): No Associated Symptoms: Yes: Chest Pain/pressure, Shortness of Breath Past History - Travel Traveled outside of the country in the last 30 days: No Close contact w/someone who was outside of country & ill: No - Past Medical History Allergies/Adverse Reactions: Allergies Allergy/AdvReac Type Severity Reaction Status Date / Time levofloxacin [From Levaquin] Allergy Intermediate Swelling Verified 06/15/16 04: 28 Home Medications: Ambulatory Orders Albuterol 0.083% Nebulizer Pauline [Ventolin 0.083% Nebulizer Soln -] 1 amp NEB HS 05/31/16 Albuterol Sulfate [Proair Respiclick] 90 mcg IH PRN PRN 05/31/16 Amiodarone HCl 200 mg PO DAILY 05/31/16 Aspirin [ASA -] 81 mg PO DAILY 05/31/16 Beclomethasone Dipropionate [Qvar] 2 puff IH BID 05/31/16 Dexlansoprazole [Dexilant] 60 mg PO DAILY 05/31/16 Diltiazem HCl [Diltiazem ER] 120 mg PO DAILY 05/31/16 Famotidine [Pepcid] 40 mg PO DAILY 05/31/16 Fenofibrate Nanocrystallized [Tricor] 160 mg PO DAILY 05/31/16 Furosemide [Lasix] 40 mg PO DAILY 05/31/16 Isosorbide Mononitrate [Isosorbide Mononitrate ER] 120 mg PO DAILY 05/31/16 Lidocaine 5% Patch [Lidoderm -] 1 patch TP DAILY #30 patch 05/31/16 Linaclotide [Linzess] 145 mcg PO BID 05/31/16 Lisinopril [Prinivil] 10 mg PO DAILY 05/31/16 Metoprolol Succinate [Toprol Xl] 100 mg PO DAILY 05/31/16 Nitroglycerin [place] [Nitrolingual] 1 spray TL PRN PRN 05/31/16 [place]-3 Acid Ethyl Esters [Lovaza] 1 gm PO BID 05/31/16 Oxycodone HCl 30 mg PO DAILY 05/31/16 Oxycodone HCl/Acetaminophen [Percocet 10-325 mg Tablet] 1 each PO BID 05/31/16 Pantoprazole Sodium [Protonix] 40 mg PO DAILY 05/31/16 Prasugrel HCl [Effient] 5 mg PO HS 05/31/16 Pravastatin Sodium [Pravachol (Nf)] 80 mg PO HS 05/31/16 Ranitidine HCl [Zantac] 150 mg PO HS 05/31/16 Ranolazine [Ranexa] 1,000 mg PO BID 05/31/16 Roflumilast [Daliresp] 500 mcg PO HS 05/31/16 Tiotropium Br/Olodaterol HCl [Stiolto Respimat Inhal [place]] 2.5 gm IH BID Warfarin Sodium [Coumadin] 4 mg PO HS 05/31/16 Amoxicillin/Potassium Clav [Augmentin 875-125 Tablet] 1 each PO Q12H #14 tablet 06/01/16 Methocarbamol [Robaxin -] 750 mg PO QID PRN #28 tablet 06/01/16 Anemia: No Asthma: No Cancer: No Cardiac Disorders: Yes (A FIB, [place]) CVA: No COPD: Yes CHF: Yes Dementia: No Diabetes: No GI Disorders: Yes (ACID REFLUX) Disorders: No HTN: Yes Hypercholesterolemia: Yes Liver Disease: No Suicide Attempt (Hx): No Seizures: No Thyroid Disease: No - Surgical History Cardiac Surgery: Yes (13 stent placements & CARDIAC ABLIATION 01/2014) - Immunization History Immunization Up to Date: Yes - Psycho/Social/Smoking Cessation Hx Anxiety: No Suicidal Ideation: No Smoking Status: No Smoking History: Never smoked Have you smoked in the past 12 months: No Number of Cigarettes Smoked Daily: 0 If you are a former smoker, when did you quit?: 1990 Hx Alcohol Use: No Drug/Substance Use Hx: No Substance Use Type: None Hx Substance Use Treatment: No Cardiac Specific PMH - Complaint Specific PMHX Abdominal Aortic Aneurysm: No Angina: No Cardiac Arrhythmia: No Cardiac Stent: Yes GERD: Yes Myocardial Infarction: Yes Pacemaker: No Pulmonary Embolus: No Peripheral Vascular Disease: No Review of Systems - Review of Systems Able to Perform ROS?: Yes Is the patient limited Armenian proficient: No Constitutional: No: Chills, Fever Respiratory: Yes: Shortness of Breath, SOB at Rest. No: Cough, Wheezing, Productive cough Cardiac (ROS): Yes: Chest Pain, Other (Chest Pressure). No: Lightheadedness, Palpitations, Syncope ABD/GI: No: Constipated, Diarrhea, Nausea, Vomiting : No: Dysuria, Flank Pain, Hematuria Musculoskeletal: No: Back Pain, Joint Pain, Muscle Pain, Muscle Weakness, Neck Pain Integumentary: No: Dryness, Erythema, Rash, Sweating Neurological: No: Headache, Seizure, Tingling, Tremors, Ataxia, Dizziness All Other Systems: Reviewed and Negative *Physical Exam - Vital Signs Last Vital Signs Temp Pulse Resp BP Pulse Ox 97.9 F 71 20 149/80 98 06/15/16 04:29 06/15/16 04:29 06/15/16 04:29 06/15/16 04:29 06/15/16 05:10 - Physical Exam General Appearance: Yes: Nourished, Apparent Distress, Mild Distress. No: Appropriately Dressed, Moderate Distress, Severe Distress Respiratory/Chest: positive: Lungs Clear, Normal Breath Sounds. negative: Respiratory Distress, Accessory Muscle Use, Labored Respiration, Rapid RR, Stridor, Wheezing Cardiovascular: positive: Regular Rhythm, Regular Rate. negative: Edema, JVD, Murmur Gastrointestinal/Abdominal: positive: Normal Bowel Sounds, Soft, Distended. negative: Guarding, Rebound, Tenderness Musculoskeletal: positive: Normal Inspection. negative: CVA Tenderness Extremity: positive: Normal Capillary Refill, Normal Inspection, Normal Range of Motion Integumentary: positive: Normal Color, Dry, Warm. 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, Fully Oriented, Alert, Normal Mood/ Affect, Normal Response, Motor Strength 5/5 Heart Score/ECG Review - History History: Moderately suspicious - Electrocardiogram EKG: Normal - Age Age: 45-65 - Risk Factors Risk Factors Heart Score: Yes Hx Hypercholesterolemia, Yes Hx Hypertension, Yes Hx Diabetes, Yes Positive family hx of cardiac disease, Yes Hx Obesity Based on the list above the patient has:: >/=3 risk factors or Hx atherosclerotic disease - Troponin Troponin: </= normal limit - Score Heart Score - Total: 4 - ECG Impressions Normal ECG: Yes Non-specific ST Elevation: No Ischemic Changes: No Bradycardia: No Torsades aixa Pointes: No WPW: No Comment:: 06/15/16 04:38 Sinus Rhythm with Right BBB. ED Treatment Course - LABORATORY CBC & Chemistry Diagram: 06/15/16 04:38 06/15/16 04:38 - ADDITIONAL ORDERS Additional order review: Laboratory Results 06/15/16 06/15/16 04:38 04:38 Sodium 141 Potassium 3.4 L Chloride 102 Carbon Dioxide 28 Anion Gap 11 BUN 17 Creatinine 1.3 Creat Clearance w eGFR 55.75 Random Glucose 96 Calcium 8.9 Total Bilirubin 0.4 D AST 17 D ALT 24 Alkaline Phosphatase 61 D Creatine Kinase 117 Troponin I 0.05 D B-Natriuretic Peptide 357.47 H Total Protein 7.0 Albumin 3.8 06/15/16 04:38 RBC 4.74 MCV 79.6 L MCHC 33.4 RDW 15.5 MPV 7.7 Neutrophils % 57.9 Lymphocytes % 28.1 D Monocytes % 10.2 Eosinophils % 3.0 Basophils % 0.8 - RADIOLOGY Radiology Studies Ordered: Category Date Time Status CHEST PA & LAT [RAD] Stat Radiology 06/15/16 04:16 Taken Medical Decision Making - Medical Decision Making 06/15/16 04:37 Patient refusing nitro paste and ASA at this time. Patient states the last time they have him blood pressure medication, " he also gone." 06/15/16 06:[address] PARKER WHO WOULD LIKE PATIENT ADMITTED TO TELEMETRY. *DC/Admit/Observation/Transfer Diagnosis at time of Disposition: Chest pain Qualifiers: Chest pain type: other chest pain Qualified Code(s): R07.89 - Other chest pain ; R07.8 - Other chest pain - Discharge Dispostion Condition at time of disposition: Fair Admit: Yes - Referrals Referrals: Bari Nolan MD [Primary Care Provider] -
[2016-06-15 04:54] LABS: BASOPHIL 0.8 % (0-2.0); MCH 26.6 pg (25.7-33.7); MCHC 33.4 g/dl (32.0-35.9); MEAN CELL VOLUME 79.6 fl (80-96); MEAN PLT VOLUME 7.7 fl (7.5-11.1); NEUTROPHILS 57.9 % (42.8-82.8); PLATELET COUNT 202 K/MM3 (134-434); RDW 15.5 % (11.9-15.9); WHITE BLOOD COUNT 6.1 K/mm3 (4.0-10.0)
[2016-06-15 05:04] VITALS: BMI 40.1
[2016-06-15 05:30] LABS: ALBUMIN 3.8 g/dl (3.4-5.0); BILIRUBIN,TOTAL 0.4 mg/dL (0.2-1.0); CALCIUM 8.9 mg/dL (8.5-10.1); COCKROFT - GAULT 95.5; CREATININE 1.3 mg/dL (0.7-1.3)
[2016-06-15 05:33] LABS: TROPONIN I 0.05 ng/ml (0.00-0.05)
[2016-06-15 08:21] LABS: URINE APPEARANCE CLEAR; URINE BILIRUBIN NEGATIVE (NEGATIVE); URINE BLOOD NEGATIVE (NEGATIVE); URINE COLOR YELLOW; URINE GLUCOSE (UA) NEGATIVE (NEGATIVE); URINE KETONE NEGATIVE (NEGATIVE); URINE LEUK ESTERASE NEGATIVE (NEGATIVE); URINE NITRITE NEGATIVE (NEGATIVE); URINE PROTEIN NEGATIVE (NEGATIVE); URINE UROBILINOGEN NEGATIVE E.U./dl (0.2-1.0)
[2016-06-15] MEDS ORDERED: POTASSIUM CHLORIDE TABS 20 MEQ TABLET.ER (FP) PO ONE ×2 (09:00→10:24)
--- NOTE | 2016-06-15 09:20 | CON.CARD ---
Consult Consult Specialty:: Cardiology Reason for Consultation:: cp sob - History of Present Illness History of Present Illness: 61yo Male patient w/ significant past medical history that includes: COPD, Cardiac Stents x 14, HLD, Afib w/ ablation, Sleep Apnea, HTN, and GERD presents to ED c/o chest pains/chest pressure. Patient states symptoms began 3 am this morning w/ associated shortness of breath. Patient states he took all his medications but still has pressure. He current takes Coumadin, Effient, and ASA as anticoagulants. Denies back pain, diff breathing, rash, fever, dysuria, hematuria, or any other complaints at this time. s/p multiple coronary stents s/p PTCA of distal OM1 (12/24/10) s/p pulmonary vein isolation procedures (ablation) x 2 for Atrial Fibriallation Ongoing medical problems Medical history: angina pectoris obstructive sleep apnea Anxiety Atrial fibrillation CAD: s/p multiple PCIs; the latest 12/08: patent mid LAD and RPDA prior stents; PTCA of distal OM1; latest angiograms 04/15 and 03/16: patent stents, [employer] OM Congestive heart failure (diastolic) COPD Hypercholesterolemia Hypertension Moderate aortic regurgitation Obesity s/p pulmonary vein ablation x 2 for PAF, most recently at [facility] (followed by Dr. Fam Pollock) - History Source History Provided By: Patient, Medical Record Limitations to Obtaining History: No Limitations - Past Medical History Cardio/Vascular: Yes: AFIB, CAD, CHF (chronic diastolic), HTN, Hyperlipdemia, [place] , Other (SVT) Pulmonary: Yes: COPD, Sleep Apnea Gastrointestinal: Yes: GERD Psych: Yes: Anxiety Musculoskeletal: Yes: Chronic low back pain - Past Surgical History Past Surgical History: Yes: Stent (Multiple cardiac stents; pulmonary vein ablation Rx x 2 for AF/flutter) - Alcohol/Substance Use Hx Alcohol Use: No History of Substance Use: reports: None - Smoking History Smoking history: Never smoked Have you smoked in the past 12 months: No Aproximately how many cigarettes per day: 0 If you are a former smoker, when did you quit?: 1990 - Social History Usual Living Arrangement: With Spouse ADL: Independent History of Recent Travel: No Home Medications - Allergies Allergies/Adverse Reactions: Allergies Allergy/AdvReac Type Severity Reaction Status Date / Time levofloxacin [From Levaquin] Allergy Intermediate Swelling Verified 06/15/16 04: 28 - Home Medications Home Medications: Ambulatory Orders Albuterol 0.083% Nebulizer Paul[place] [Ventolin 0.083% Nebulizer Soln -] 1 amp NEB HS 05/31/16 Albuterol Sulfate [Proair Respiclick] 90 mcg IH PRN PRN 05/31/16 Amiodarone HCl 200 mg PO DAILY 05/31/16 Aspirin [ASA -] 81 mg PO DAILY 05/31/16 Beclomethasone Dipropionate [Qvar] 2 puff IH BID 05/31/16 Dexlansoprazole [Dexilant] 60 mg PO DAILY 05/31/16 Diltiazem HCl [Diltiazem ER] 120 mg PO DAILY 05/31/16 Famotidine [Pepcid] 40 mg PO DAILY 05/31/16 Fenofibrate Nanocrystallized [Tricor] 160 mg PO DAILY 05/31/16 Furosemide [Lasix] 40 mg PO DAILY 05/31/16 Isosorbide Mononitrate [Isosorbide Mononitrate ER] 120 mg PO DAILY 05/31/16 Lidocaine 5% Patch [Lidoderm -] 1 patch TP DAILY #30 patch 05/31/16 Linaclotide [Linzess] 145 mcg PO BID 05/31/16 Lisinopril [Prinivil] 10 mg PO DAILY 05/31/16 Metoprolol Succinate [Toprol Xl] 100 mg PO DAILY 05/31/16 Nitroglycerin [place] [Nitrolingual] 1 spray TL PRN PRN 05/31/16 [place]-3 Acid Ethyl Esters [Lovaza] 1 gm PO BID 05/31/16 Oxycodone HCl 30 mg PO DAILY 05/31/16 Oxycodone HCl/Acetaminophen [Percocet 10-325 mg Tablet] 1 each PO BID 05/31/16 Pantoprazole Sodium [Protonix] 40 mg PO DAILY 05/31/16 Prasugrel HCl [Effient] 5 mg PO HS 05/31/16 Pravastatin Sodium [Pravachol (Nf)] 80 mg PO HS 05/31/16 Ranitidine HCl [Zantac] 150 mg PO HS 05/31/16 Ranolazine [Ranexa] 1,000 mg PO BID 05/31/16 Roflumilast [Daliresp] 500 mcg PO HS 05/31/16 Tiotropium Br/Olodaterol HCl [Stiolto Respimat Inhal [place]] 2.5 gm IH BID Warfarin Sodium [Coumadin] 4 mg PO HS 05/31/16 Methocarbamol [Robaxin -] 750 mg PO QID PRN #28 tablet 06/01/16 Review of Systems - Review of Systems Constitutional: reports: No Symptoms Eyes: reports: No Symptoms HENT: reports: No Symptoms Neck: reports: No Symptoms Cardiovascular: reports: Chest Pain, Shortness of Breath Respiratory: reports: SOB Gastrointestinal: reports: No Symptoms Genitourinary: reports: No Symptoms Breasts: reports: No Symptoms Reported Musculoskeletal: reports: No Symptoms Integumentary: reports: No Symptoms Neurological: reports: No Symptoms Endocrine: reports: No Symptoms Hematology/Lymphatic: reports: No Symptoms Psychiatric: reports: No Symptoms Vital Signs: Vital Signs Temperature 98 F 06/15/16 08:04 Pulse Rate 63 06/15/16 08:04 Respiratory Rate 17 06/15/16 08:04 Blood Pressure 105/55 06/15/16 08:04 O2 Sat by Pulse Oximetry (%) 98 06/15/16 08:04 Constitutional: Yes: Well Nourished, No Distress, Calm Eyes: Yes: WNL, Conjunctiva Clear, EOM Intact HENT: Yes: WNL, Atraumatic, Normocephalic Neck: Yes: WNL, Supple, Trachea Midline Respiratory: Yes: WNL, Regular, CTA Bilaterally Gastrointestinal: Yes: WNL, Normal Bowel Sounds Renal/: Yes: WNL Cardiovascular: Yes: WNL, Regular Rate and Rhythm Musculoskeletal: Yes: WNL Extremities: Yes: WNL Integumentary: Yes: WNL Neurological: Yes: WNL, Alert, Oriented ...Motor Strength: WNL Psychiatric: Yes: WNL, Alert, Oriented - Other Data Labs, Other Data: Laboratory Tests 06/15/16 06/15/16 06/15/16 04:38 04:38 04:38 WBC 6.1 RBC 4.74 Hgb 12.6 Hct 37.8 MCV 79.6 L MCHC 33.4 RDW 15.5 Plt Count 202 MPV 7.7 Neutrophils % 57.9 Lymphocytes % 28.1 D Monocytes % 10.2 Eosinophils % 3.0 Basophils % 0.8 INR Sodium 141 Potassium 3.4 L Chloride 102 Carbon Dioxide 28 Anion Gap 11 BUN 17 Creatinine 1.3 Creat Clearance w eGFR 55.75 Random Glucose 96 Calcium 8.9 Total Bilirubin 0.4 D AST 17 D ALT 24 Alkaline Phosphatase 61 D Creatine Kinase 117 Troponin I 0.05 D B-Natriuretic Peptide 357.47 H Total Protein 7.0 Albumin 3.8 TSH Urine Color Urine Appearance Urine pH Ur Specific [place] Urine Protein Urine Glucose (UA) Urine Ketones Urine Blood Urine Nitrite Urine Bilirubin Urine Urobilinogen Ur Leukocyte Esterase 06/15/16 06/15/16 06/15/16 08:07 09:35 09:35 WBC RBC Hgb Hct MCV MCHC RDW Plt Count MPV Neutrophils % Lymphocytes % Monocytes % Eosinophils % Basophils % INR 3.42 H D Sodium 139 Potassium 3.4 L Chloride 102 Carbon Dioxide 27 Anion Gap 10 BUN 18 Creatinine 1.3 Creat Clearance w eGFR Random Glucose 99 Calcium 8.7 Total Bilirubin AST ALT Alkaline Phosphatase Creatine Kinase 122 Troponin I 0.06 H B-Natriuretic Peptide Total Protein Albumin TSH 6.19 H D Urine Color Yellow Urine Appearance Clear Urine pH 6.0 Ur Specific [place] 1.019 Urine Protein Negative Urine Glucose (UA) Negative Urine Ketones Negative Urine Blood Negative Urine Nitrite Negative Urine Bilirubin Negative Urine Urobilinogen Negative Ur Leukocyte Esterase Negative Imaging - Results Chest X-ray: Image Reviewed (cm chf) EKG: Image Reviewed (sr rbbb lateral wall mi) Problem List - Problems (1) CHF (congestive heart failure) Code(s): I50.9 - HEART FAILURE, UNSPECIFIED (2) Chest pain Code(s): R07.9 - CHEST PAIN, UNSPECIFIED Qualifiers: Chest pain type: other chest pain Qualified Code(s): R07.89 - Other chest pain; R07.8 - Other chest pain (3) Respiratory distress Code(s): 786.09 - RESPIRATORY ABNORM NEC (4) TRACY (acute kidney injury) Code(s): N17.9 - ACUTE KIDNEY FAILURE, UNSPECIFIED (5) Contusion of rib on right side Code(s): S20.211A - CONTUSION OF RIGHT FRONT WALL OF THORAX, INITIAL ENCOUNTER Qualifiers: Encounter type: initial encounter Qualified Code(s): S20.211A - Contusion of right front wall of thorax, initial encounter (6) Dyspnea Code(s): R06.00 - DYSPNEA, UNSPECIFIED Qualifiers: Dyspnea type: orthopnea Qualified Code(s): R06.01 - Orthopnea (7) Elevated troponin Code(s): R79.89 - OTHER SPECIFIED ABNORMAL FINDINGS OF BLOOD CHEMISTRY (8) Epistaxis Code(s): R04.0 - EPISTAXIS (9) Hypotension Code(s): I95.9 - HYPOTENSION, UNSPECIFIED (10) Moderate aortic stenosis Code(s): I35.0 - NONRHEUMATIC AORTIC (VALVE) STENOSIS (11) Myocardial disease Code(s): I51.5 - MYOCARDIAL DEGENERATION (12) Obstructive sleep apnea Code(s): G47.33 - OBSTRUCTIVE SLEEP APNEA (ADULT) (PEDIATRIC) (13) Rib fractures Code(s): S22.39XA - FRACTURE OF ONE RIB, UNSP SIDE, INIT FOR CLOS FX Qualifiers: Encounter type: subsequent encounter Rib fracture type: multiple ribs Fracture type: closed Laterality: right Fracture healing: with nonunion Qualified Code(s): S22.41XK - Multiple fractures of ribs, right side, subsequent encounter for fracture with nonunion (14) Atrial fibrillation Code(s): I48.91 - UNSPECIFIED ATRIAL FIBRILLATION (15) CAD (coronary artery disease) Code(s): I25.10 - ATHSCL HEART DISEASE OF [place] CORONARY ARTERY W/O ANG PCTRS (16) COPD (chronic obstructive pulmonary disease) Code(s): J44.9 - CHRONIC OBSTRUCTIVE PULMONARY DISEASE, UNSPECIFIED (17) Chronic abdominal pain Code(s): R10.9 - UNSPECIFIED ABDOMINAL PAIN G89.29 - OTHER CHRONIC PAIN (18) Chronic back pain Code(s): M54.9 - DORSALGIA, UNSPECIFIED G89.29 - OTHER CHRONIC PAIN (19) Chronic diastolic heart failure Code(s): I50.32 - CHRONIC DIASTOLIC (CONGESTIVE) HEART FAILURE (20) Constipation Code(s): K59.00 - CONSTIPATION, UNSPECIFIED (21) History of coronary artery stent placement Code(s): Z95.5 - PRESENCE OF CORONARY ANGIOPLASTY IMPLANT AND GRAFT (22) Hyperlipidemia Code(s): E78.5 - HYPERLIPIDEMIA, UNSPECIFIED (23) Hypertension Code(s): I10 - ESSENTIAL (PRIMARY) HYPERTENSION Assessment/Plan sob cp sx chf diastolic decompensated patent stent s c.cath Omar. 2017 paf mod AR htn hld copd morbid obesity Plan Telemetry r/o mi IV lasix cont AC and DAPT
--- NOTE | 2016-06-15 09:23 | HP ---
Admitting History and Physical - Admission History of Present Illness: 61yo Male patient w/ significant past medical history that includes: COPD, Cardiac Stents x 14, HLD, Afib w/ ablation, Sleep Apnea, HTN, and GERD presents to ED c/o chest pains/chest pressure. Patient states symptoms began 3 am this morning w/ associated shortness of breath. Patient states he took all his medications but still has pressure. He current takes Coumadin, Effient, and ASA as anticoagulants. Denies back pain, diff breathing, rash, fever, dysuria, hematuria, or any other complaints at this time. sob with minimal exertion - Past Medical History Cardiovascular: Yes: AFIB, CAD, CHF (chronic diastolic), HTN, Hyperlipdemia, [place] , Other (SVT) Pulmonary: Yes: COPD, Sleep Apnea Gastrointestinal: Yes: GERD Psych: Yes: Anxiety Musculoskeletal: Yes: Chronic low back pain - Past Surgical History Past Surgical History: Yes: Stent (Multiple cardiac stents; pulmonary vein ablation Rx x 2 for AF/flutter) - Smoking History Smoking history: Never smoked Have you smoked in the past 12 months: No Aproximately how many cigarettes per day: 0 If you are a former smoker, when did you quit?: 1990 - Alcohol/Substance Use Hx Alcohol Use: No History of Substance Use: reports: None - Social History ADL: Independent History of Recent Travel: No Home Medications - Allergies Allergies/Adverse Reactions: Allergies Allergy/AdvReac Type Severity Reaction Status Date / Time levofloxacin [From Levaquin] Allergy Intermediate Swelling Verified 06/15/16 04: 28 - Home Medications Home Medications: Ambulatory Orders Albuterol 0.083% Nebulizer [place] [Ventolin 0.083% Nebulizer Soln -] 1 amp NEB HS 05/31/16 Albuterol Sulfate [Proair Respiclick] 90 mcg IH PRN PRN 05/31/16 Amiodarone HCl 200 mg PO DAILY 05/31/16 Aspirin [ASA -] 81 mg PO DAILY 05/31/16 Beclomethasone Dipropionate [Qvar] 2 puff IH BID 05/31/16 Dexlansoprazole [Dexilant] 60 mg PO DAILY 05/31/16 Diltiazem HCl [Diltiazem ER] 120 mg PO DAILY 05/31/16 Famotidine [Pepcid] 40 mg PO DAILY 05/31/16 Fenofibrate Nanocrystallized [Tricor] 160 mg PO DAILY 05/31/16 Furosemide [Lasix] 40 mg PO DAILY 05/31/16 Isosorbide Mononitrate [Isosorbide Mononitrate ER] 120 mg PO DAILY 05/31/16 Lidocaine 5% Patch [Lidoderm -] 1 patch TP DAILY #30 patch 05/31/16 Linaclotide [Linzess] 145 mcg PO BID 05/31/16 Lisinopril [Prinivil] 10 mg PO DAILY 05/31/16 Metoprolol Succinate [Toprol Xl] 100 mg PO DAILY 05/31/16 Nitroglycerin [place] [Nitrolingual] 1 spray TL PRN PRN 05/31/[address] [place]-3 Acid Ethyl Esters [Lovaza] 1 gm PO BID 05/31/16 Oxycodone HCl 30 mg PO DAILY 05/31/16 Oxycodone HCl/Acetaminophen [Percocet 10-325 mg Tablet] 1 each PO BID 05/31/16 Pantoprazole Sodium [Protonix] 40 mg PO DAILY 05/31/16 Prasugrel HCl [Effient] 5 mg PO HS 05/31/16 Pravastatin Sodium [Pravachol (Nf)] 80 mg PO HS 05/31/16 Ranitidine HCl [Zantac] 150 mg PO HS 05/31/16 Ranolazine [Ranexa] 1,000 mg PO BID 05/31/16 Roflumilast [Daliresp] 500 mcg PO HS 05/31/16 Tiotropium Br/Olodaterol HCl [Stiolto Respimat Inhal [place]] 2.5 gm IH BID Warfarin Sodium [Coumadin] 4 mg PO HS 05/31/16 Methocarbamol [Robaxin -] 750 mg PO QID PRN #28 tablet 06/01/16 Review of Systems - Review of Systems Cardiovascular: reports: Chest Pain, Shortness of Breath Respiratory: reports: SOB, SOB on Exertion Gastrointestinal: denies: Abdominal Pain Genitourinary: reports: No Symptoms Neurological: reports: No Symptoms Physical Examination Vital Signs: Vital Signs Temperature 98 F 06/15/16 08:04 Pulse Rate 63 06/15/16 08:04 Respiratory Rate 17 06/15/16 08:04 Blood Pressure 105/55 06/15/16 08:04 O2 Sat by Pulse Oximetry (%) 98 04/18/17 08:04 Cardiovascular: Yes: Murmur, S1, S2 Respiratory: Yes: On Nasal O2, Rales (at the bases) Gastrointestinal: Yes: Normal Bowel Sounds, Soft Imaging - Results Chest X-ray: Report Reviewed Problem List - Problems (1) Chest pain Assessment/Plan: FOLLOW CE CONTINUE WITH MEDS CARDIO DIURESIS Code(s): R07.9 - CHEST PAIN, UNSPECIFIED Qualifiers: Chest pain type: other chest pain Qualified Code(s): R07.89 - Other chest pain; R07.8 - Other chest pain (2) CHF (congestive heart failure) Assessment/Plan: IV LASIX FOLLOW LYTES Code(s): I50.9 - HEART FAILURE, UNSPECIFIED (3) Dyspnea Assessment/Plan: ABOVE Code(s): R06.00 - DYSPNEA, UNSPECIFIED Qualifiers: Dyspnea type: orthopnea Qualified Code(s): R06.01 - Orthopnea (4) COPD (chronic obstructive pulmonary disease) Assessment/Plan: NEBS PULM Code(s): J44.9 - CHRONIC OBSTRUCTIVE PULMONARY DISEASE, UNSPECIFIED
[2016-06-15] MEDS ORDERED: PATIENT'S OWN MEDICATION (NON-FORMULARY) (Isosorbide Mononitrate [Isosorbide Mononitrate E PO SCH (10:00)
[2016-06-15] MEDS ORDERED: LINACLOTIDE 145 MCG PO SCH (10:00)
[2016-06-15] MEDS ORDERED: FENOFIBRATE NANOCRYSTALLIZED 160 MG PO SCH (10:00)
[2016-06-15] MEDS ORDERED: BECLOMETHASONE DIPROPIONATE IH SCH (10:00)
[2016-06-15 10:06] LABS: INR 3.42 (0.82-1.09); PROTHROMBIN TIME (PATIENT) 38.6 SEC (9.98-11.88)
[2016-06-15] MEDS: PATIENT'S OWN MEDICATION (NON-FORMULARY) (Famotidine [Pepcid] 40 MG) PO SCH ×2 (10:17→10:37)
[2016-06-15] MEDS: AMIODARONE HCL 200 MG TABLET (FP) PO SCH ×2 (10:17→10:37)
[2016-06-15] MEDS: ASPIRIN 81 MG CHEWABLE TABLETS PO SCH ×2 (10:17→10:34)
[2016-06-15] MEDS: OMEGA-3 ACID ETHYL ESTERS (FATTY-ACIDS) 1 GM CAPSULE (FP) PO SCH ×3 (10:18→21:26)
[2016-06-15] MEDS: PANTOPRAZOLE 40 MG TABLET (FP) PO SCH ×2 (10:18→10:37)
[2016-06-15] MEDS: LISINOPRIL 10 MG TABLET (FP) PO SCH ×2 (10:18→10:37)
[2016-06-15] MEDS: RANOLAZINE E.R. 1,000 MG TABLET (FP) PO SCH ×3 (10:19→21:26)
[2016-06-15] MEDS: METOPROLOL SUCCINATE 100 MG TAB.SR.24H (FP) PO SCH ×2 (10:19→10:36)
[2016-06-15] MEDS: ALBUTEROL SO4 0.083% IH SOL 2.5 MG/3 ML VIAL.NEB. NEB SCH ×4 (10:20→23:25)
[2016-06-15] MEDS ORDERED: ACETAMINOPHEN 325 MG TABLET (FP) ONE (10:23)
[2016-06-15] MEDS ORDERED: oxyCODONE HCL 5 MG TABLET ONE (10:25)
[2016-06-15] MEDS: ACLIDINIUM BROMIDE 400 MCG/INH AERO.POWD IH SCH ×2 (10:26→22:00)
[2016-06-15 10:33] LABS: CALCIUM 8.7 mg/dL (8.5-10.1); COCKROFT - GAULT 95.5; CREATININE 1.3 mg/dL (0.7-1.3)
[2016-06-15] MEDS: LIDOCAINE 5% TOPICAL PATCH TP SCH (10:34)
[2016-06-15 10:39] LABS: THYROID STIMULATING HORMONE 6.19 uIU/ml (0.358-3.74); TROPONIN I 0.06 ng/ml (0.00-0.05)
[2016-06-15] MEDS: oxyCODONE HCL 5 MG TABLET PO PRN ×3 (11:00→21:36)
[2016-06-15] MEDS: ACETAMINOPHEN 325 MG TABLET (FP) PO PRN ×3 (11:00→21:37)
[2016-06-15] MEDS ORDERED: ALBUTEROL SO4 0.083% IH SOL 2.5 MG/3 ML VIAL.NEB. NEB ONE (12:14)
--- NOTE | 2016-06-15 12:37 | EKG ---
Test Reason : Blood Pressure : / mmHG Vent. Rate : 066 BPM Atrial Rate : 066 BPM P-R Int : 198 ms QRS Dur : 168 ms QT Int : 492 ms P-R-T Axes : 086 -88 029 degrees QTc Int : 515 ms NORMAL SINUS RHYTHM RIGHT BUNDLE BRANCH BLOCK LEFT ANTERIOR FASCICULAR BLOCK BIFASCICULAR BLOCK ABNORMAL ECG WHEN COMPARED WITH ECG OF 15-JUN-2016 04:21, NO SIGNIFICANT CHANGE WAS FOUND Confirmed by MARTHA COPELAND MD ([id number]) on 06/15/2016 12:37:08 PM Referred By: MICKY KIM Confirmed By:MARTHA COPELAND MD
--- NOTE | 2016-06-15 12:43 | EKG ---
Test Reason : Blood Pressure : / mmHG Vent. Rate : 073 BPM Atrial Rate : 073 BPM P-R Int : 194 ms QRS Dur : 164 ms QT Int : 468 ms P-R-T Axes : 070 270 024 degrees QTc Int : 515 ms NORMAL SINUS RHYTHM RIGHT BUNDLE BRANCH BLOCK LEFT ANTERIOR FASCICULAR BLOCK ABNORMAL ECG WHEN COMPARED WITH ECG OF 01-JUN-2016 19:07, NO SIGNIFICANT CHANGE WAS FOUND Confirmed by MIN GUADALUPE, MARTHA ([id number]) on 06/15/2016 12:43:14 PM Referred By: Confirmed By:MARTHA COPELAND MD
[2016-06-15] MEDS: FUROSEMIDE 40 MG/4 ML INJECTABLE VIAL IVPUSH SCH (15:30)
[2016-06-15] MEDS: WARFARIN NA 2 MG TABLET (UD) PO SCH (18:32)
[2016-06-15] MEDS: ATORVASTATIN CA 20 MG TABLET (FP) PO SCH (21:26)
[2016-06-15] MEDS: RANITIDINE HCL 150 MG TABLET (FP) PO SCH (21:27)
[2016-06-15] MEDS: MOMETASONE FUROATE 110 MCG/IH INHALER IH SCH (21:39)
[2016-06-15] MEDS: ROFLUMILAST 500 MCG TABLET PO SCH (21:40)
[2016-06-15] MEDS: PRASUGREL HCL 5 MG TAB PO SCH (21:40)
[2016-06-16] MEDS: oxyCODONE HCL 5 MG TABLET PO PRN ×5 (01:58→21:35)
[2016-06-16] MEDS: ACETAMINOPHEN 325 MG TABLET (FP) PO PRN ×5 (01:59→21:35)
[2016-06-16] MEDS: ALBUTEROL SO4 0.083% IH SOL 2.5 MG/3 ML VIAL.NEB. NEB SCH ×3 (06:24→17:58)
[2016-06-16] MEDS: FUROSEMIDE 40 MG/4 ML INJECTABLE VIAL IVPUSH SCH ×2 (06:36→13:25)
[2016-06-16 07:37] LABS: BASOPHIL 0.8 % (0-2.0); EOSINOPHIL 2.8 % (0-4.5); MCH 26.8 pg (25.7-33.7); MCHC 33.9 g/dl (32.0-35.9); MEAN CELL VOLUME 79.1 fl (80-96); MEAN PLT VOLUME 7.7 fl (7.5-11.1); NEUTROPHILS 59.8 % (42.8-82.8); PLATELET COUNT 208 K/MM3 (134-434); RDW 15.8 % (11.9-15.9); WHITE BLOOD COUNT 6.8 K/mm3 (4.0-10.0)
[2016-06-16 08:02] LABS: ALBUMIN 3.8 g/dl (3.4-5.0); ANION GAP 9 (8-16); CALCIUM 9.1 mg/dL (8.5-10.1); CHOLESTEROL 182 mg/dL (50-200); CO2 28 mmol/L (21-32); COCKROFT - GAULT 121.33; GLUCOSE,RANDOM 91 mg/dL (74-106); SGOT/AST 19 U/L (15-37); SGPT/ALT 22 U/L (12-78)
[2016-06-16 08:05] LABS: ALK PHOS 61 U/L (45-117); BILIRUBIN,TOTAL 0.4 mg/dL (0.2-1.0); LDL CHOLESTEROL (ONLY SJRH) 104 mg/dL (5-100); TOT PROT 7.3 g/dl (6.4-8.2); TROPONIN I 0.05 ng/ml (0.00-0.05)
[2016-06-16] MEDS ORDERED: PT OWN MED DRAWER 7, Y5N ONE ×3 (09:05→21:14)
[2016-06-16] MEDS: ACLIDINIUM BROMIDE 400 MCG/INH AERO.POWD IH SCH ×2 (09:14→21:20)
[2016-06-16] MEDS: RANITIDINE HCL 150 MG TABLET (FP) PO SCH ×2 (09:15→21:21)
[2016-06-16] MEDS: LIDOCAINE 5% TOPICAL PATCH TP SCH (09:15)
[2016-06-16] MEDS: PANTOPRAZOLE 40 MG TABLET (FP) PO SCH (09:23)
[2016-06-16] MEDS: ASPIRIN 81 MG CHEWABLE TABLETS PO SCH (09:23)
[2016-06-16] MEDS: FENOFIBRIC ACID 135 MG CAP PO SCH (09:23)
[2016-06-16] MEDS: OMEGA-3 ACID ETHYL ESTERS (FATTY-ACIDS) 1 GM CAPSULE (FP) PO SCH ×2 (09:23→21:21)
[2016-06-16] MEDS: RANOLAZINE E.R. 1,000 MG TABLET (FP) PO SCH ×2 (09:23→21:21)
[2016-06-16] MEDS: METOPROLOL SUCCINATE 100 MG TAB.SR.24H (FP) PO SCH (09:23)
[2016-06-16] MEDS: ISOSORBIDE MONONITRATE 60 MG TAB.SR.24H (FP) PO SCH (09:23)
[2016-06-16] MEDS: AMIODARONE HCL 200 MG TABLET (FP) PO SCH (09:23)
[2016-06-16] MEDS: LISINOPRIL 10 MG TABLET (FP) PO SCH ×2 (09:24→21:28)
[2016-06-16 09:33] LABS: INR 2.68 (0.82-1.09); PROTHROMBIN TIME (PATIENT) 30.1 SEC (9.98-11.88)
--- NOTE | 2016-06-16 10:39 | PN ---
Progress Note, Physician Chief Complaint: no sob History of Present Illness: 61yo Male patient w/ significant past medical history that includes: COPD, Cardiac Stents x 14, HLD, Afib w/ ablation, Sleep Apnea, HTN, and GERD presents to ED c/o chest pains/chest pressure. Patient states symptoms began 3 am this morning w/ associated shortness of breath. Patient states he took all his medications but still has pressure. He current takes Coumadin, Effient, and ASA as anticoagulants. Denies back pain, diff breathing, rash, fever, dysuria, hematuria, or any other complaints at this time. s/p multiple coronary stents s/p PTCA of distal OM1 (12/24/10) s/p pulmonary vein isolation procedures (ablation) x 2 for Atrial Fibriallation Ongoing medical problems Medical history: angina pectoris obstructive sleep apnea Anxiety Atrial fibrillation CAD: s/p multiple PCIs; the latest 12/08: patent mid LAD and RPDA prior stents; PTCA of distal OM1; latest angiograms 04/15 and 03/16: patent stents, CAD INTERN OM Congestive heart failure (diastolic) COPD Hypercholesterolemia Hypertension Moderate aortic regurgitation Obesity s/p pulmonary vein ablation x 2 for PAF, most recently at [facility] (followed by Dr. Fam Pollock) - Current Medication List Current Medications: Active Medications Acetaminophen (Tylenol -) 325 mg PO Q4H PRN PRN Reason: FEVER OR PAIN Last Admin: 06/16/16 07:29 Dose: 325 mg Aclidinium [place] (Tudorza -) 1 puff IH BID [facility] Last Admin: 06/16/16 09:14 Dose: 1 puff Albuterol Sulfate (Ventolin 0.083% Nebulizer Soln -) 1 amp NEB QIDR [facility] Last Admin: 06/16/16 06:24 Dose: 1 amp Amiodarone HCl (Cordarone -) 200 mg PO DAILY [facility] Last Admin: 06/16/16 09:23 Dose: 200 mg Aspirin (Asa -) 81 mg PO DAILY [facility] Last Admin: 06/16/16 09:23 Dose: 81 mg Atorvastatin Calcium (Lipitor -) 80 mg PO HS [facility] Last Admin: 06/15/16 21:26 Dose: 80 mg Diltiazem HCl (Cardizem Cd -) 120 mg PO DAILY [facility] Last Admin: 06/16/16 09:23 Dose: 120 mg Fenofibric Acid (Trilipix -) 135 mg PO DAILY [facility] Last Admin: 06/16/16 09:23 Dose: 135 mg Furosemide (Lasix Injection -) 40 mg IVPUSH BID@0600,1400 [facility] Last Admin: 06/16/16 06:36 Dose: 40 mg Isosorbide Mononitrate (Imdur -) 120 mg PO DAILY [facility] Last Admin: 06/16/16 09:23 Dose: 120 mg Lidocaine (Lidoderm Patch -) 1 patch TP DAILY [facility] Last Admin: 06/16/16 09:15 Dose: 1 patch Lisinopril (Prinivil) 10 mg PO DAILY [facility] Last Admin: 06/16/16 09:24 Dose: Not Given Metoprolol Succinate (Toprol Xl -) 100 mg PO DAILY [facility] Last Admin: 06/16/16 09:23 Dose: 100 mg Mometasone Furoate (Asmanex 110mcg -) 1 puff IH [facility] Last Admin: 06/15/16 21:39 Dose: 1 puff Linaclotide [Linzess ] 145 Mcg Capsule ( Pt's Own) 145 mcg PO BID [facility] Last Admin: 06/15/16 10:26 Dose: Not Given [id number] Ethyl Esters (Lovaza -) 1 gm PO BID [facility] Last Admin: 06/16/16 09:23 Dose: 1 gm Oxycodone HCl (Roxicodone -) 10 mg PO Q4H PRN PRN Reason: PAIN Last Admin: 06/16/16 07:28 Dose: 10 mg Pantoprazole Sodium (Protonix -) 40 mg PO DAILY [facility] Last Admin: 06/16/16 09:23 Dose: 40 mg Prasugrel (Effient -) 5 mg PO HS [facility] Last Admin: 06/15/16 21:40 Dose: 5 mg Ranitidine HCl (Zantac -) 150 mg PO BID [facility] Last Admin: 06/16/16 09:15 Dose: 150 mg Ranolazine (Ranexa -) 1,000 mg PO BID [facility] Last Admin: 06/16/16 09:23 Dose: 1,000 mg Roflumilast (Daliresp -) 500 mcg PO [facility] Last Admin: 06/15/16 21:40 Dose: 500 mcg Warfarin Sodium (Coumadin -) 4 mg PO DAILY@1800 [facility] Last Admin: 06/15/16 18:32 Dose: Not Given - Objective Vital Signs: Vital Signs Temperature 98.1 F 06/16/16 07:40 Pulse Rate 60 06/16/16 07:40 Respiratory Rate 16 06/16/16 07:40 Blood Pressure 124/68 06/16/16 07:40 O2 Sat by Pulse Oximetry (%) 99 06/15/16 21:00 Eyes: Yes: WNL, Conjunctiva Clear, EOM Intact HENT: Yes: WNL, Atraumatic, Normocephalic Neck: Yes: WNL, Supple, Trachea Midline Cardiovascular: Yes: WNL, Regular Rate and Rhythm Respiratory: Yes: WNL, Regular, CTA Bilaterally Gastrointestinal: Yes: WNL, Normal Bowel Sounds Genitourinary: Yes: WNL Musculoskeletal: Yes: WNL Extremities: Yes: WNL Edema: No Integumentary: Yes: WNL Neurological: Yes: WNL, Alert, Oriented ...Motor Strength: WNL Psychiatric: Yes: WNL Labs: CBC, BMP 06/16/16 06:00 06/16/16 06:00 INR, PTT INR 2.68 (0.82-1.09) H 06/16/16 06:45 Problem List - Problems (1) CHF (congestive heart failure) Code(s): I50.9 - HEART FAILURE, UNSPECIFIED (2) Chest pain Code(s): R07.9 - CHEST PAIN, UNSPECIFIED Qualifiers: Chest pain type: other chest pain Qualified Code(s): R07.89 - Other chest pain; R07.8 - Other chest pain (3) Respiratory distress Code(s): 786.09 - RESPIRATORY ABNORM NEC (4) TRACY (acute kidney injury) Code(s): N17.9 - ACUTE KIDNEY FAILURE, UNSPECIFIED (5) Contusion of rib on right side Code(s): S20.211A - CONTUSION OF RIGHT FRONT WALL OF THORAX, INITIAL ENCOUNTER Qualifiers: Encounter type: initial encounter Qualified Code(s): S20.211A - Contusion of right front wall of thorax, initial encounter (6) Dyspnea Code(s): R06.00 - DYSPNEA, UNSPECIFIED Qualifiers: Dyspnea type: orthopnea Qualified Code(s): R06.01 - Orthopnea (7) Elevated troponin Code(s): R79.89 - OTHER SPECIFIED ABNORMAL FINDINGS OF BLOOD CHEMISTRY (8) Epistaxis Code(s): R04.0 - EPISTAXIS (9) Hypotension Code(s): I95.9 - HYPOTENSION, UNSPECIFIED (10) Moderate aortic stenosis Code(s): I35.0 - NONRHEUMATIC AORTIC (VALVE) STENOSIS (11) Myocardial disease Code(s): I51.5 - MYOCARDIAL DEGENERATION (12) Obstructive sleep apnea Code(s): G47.33 - OBSTRUCTIVE SLEEP APNEA (ADULT) (PEDIATRIC) (13) Rib fractures Code(s): S22.39XA - FRACTURE OF ONE RIB, UNSP SIDE, INIT FOR CLOS FX Qualifiers: Encounter type: subsequent encounter Rib fracture type: multiple ribs Fracture type: closed Laterality: right Fracture healing: with nonunion Qualified Code(s): S22.41XK - Multiple fractures of ribs, right side, subsequent encounter for fracture with nonunion (14) Atrial fibrillation Code(s): I48.91 - UNSPECIFIED ATRIAL FIBRILLATION (15) CAD (coronary artery disease) Code(s): I25.10 - ATHSCL HEART DISEASE OF [place] CORONARY ARTERY W/O ANG PCTRS (16) COPD (chronic obstructive pulmonary disease) Code(s): J44.9 - CHRONIC OBSTRUCTIVE PULMONARY DISEASE, UNSPECIFIED (17) Chronic abdominal pain Code(s): R10.9 - UNSPECIFIED ABDOMINAL PAIN G89.29 - OTHER CHRONIC PAIN (18) Chronic back pain Code(s): M54.9 - DORSALGIA, UNSPECIFIED G89.29 - OTHER CHRONIC PAIN (19) Chronic diastolic heart failure Code(s): I50.32 - CHRONIC DIASTOLIC (CONGESTIVE) HEART FAILURE (20) Constipation Code(s): K59.00 - CONSTIPATION, UNSPECIFIED (21) History of coronary artery stent placement Code(s): Z95.5 - PRESENCE OF CORONARY ANGIOPLASTY IMPLANT AND GRAFT (22) Hyperlipidemia Code(s): E78.5 - HYPERLIPIDEMIA, UNSPECIFIED (23) Hypertension Code(s): I10 - ESSENTIAL (PRIMARY) HYPERTENSION Assessment/Plan sob resolved cp sx chf diastolic decompensated improved patent stent s c.cath 2016 paf mod AR htn hld copd morbid obesity Plan Telemetry r/o mi IV lasix cont AC and DAPT MIBI stress test as the outpatient
--- NOTE | 2016-06-16 10:46 | PN ---
Progress Note, Physician History of Present Illness: FEELS BETTER - Current Medication List Current Medications: Active Medications Acetaminophen (Tylenol -) 325 mg PO Q4H PRN PRN Reason: FEVER OR PAIN Last Admin: 06/16/16 07:29 Dose: 325 mg Aclidinium [place] (Tudorza -) 1 puff IH BID [facility] Last Admin: 06/16/16 09:14 Dose: 1 puff Albuterol Sulfate (Ventolin 0.083% Nebulizer Soln -) 1 amp NEB QIDR [facility] Last Admin: 06/16/16 06:24 Dose: 1 amp Amiodarone HCl (Cordarone -) 200 mg PO DAILY [facility] Last Admin: 06/16/16 09:23 Dose: 200 mg Aspirin (Asa -) 81 mg PO DAILY [facility] Last Admin: 06/16/16 09:23 Dose: 81 mg Atorvastatin Calcium (Lipitor -) 80 mg PO HS [facility] Last Admin: 06/15/16 21:26 Dose: 80 mg Diltiazem HCl (Cardizem Cd -) 120 mg PO DAILY [facility] Last Admin: 06/16/16 09:23 Dose: 120 mg Fenofibric Acid (Trilipix -) 135 mg PO DAILY [facility] Last Admin: 06/16/16 09:23 Dose: 135 mg Furosemide (Lasix Injection -) 40 mg IVPUSH BID@0600,1400 [facility] Last Admin: 06/16/16 06:36 Dose: 40 mg Isosorbide Mononitrate (Imdur -) 120 mg PO DAILY [facility] Last Admin: 06/16/16 09:23 Dose: 120 mg Lidocaine (Lidoderm Patch -) 1 patch TP DAILY [facility] Last Admin: 06/16/16 09:15 Dose: 1 patch Lisinopril (Prinivil) 10 mg PO DAILY [facility] Last Admin: 06/16/16 09:24 Dose: Not Given Metoprolol Succinate (Toprol Xl -) 100 mg PO DAILY [facility] Last Admin: 06/16/16 09:23 Dose: 100 mg Mometasone Furoate (Asmanex 110mcg -) 1 puff IH HS [facility] Last Admin: 06/15/16 21:39 Dose: 1 puff Linaclotide [Linzess ] 145 Mcg Capsule ( Pt's Own) 145 mcg PO BID [facility] Last Admin: 06/15/16 10:26 Dose: Not Given Zzioj-4-Znkb Ethyl Esters (Lovaza -) 1 gm PO BID [facility] Last Admin: 06/16/16 09:23 Dose: 1 gm Oxycodone HCl (Roxicodone -) 10 mg PO Q4H PRN PRN Reason: PAIN Last Admin: 06/16/16 07:28 Dose: 10 mg Pantoprazole Sodium (Protonix -) 40 mg PO DAILY [facility] Last Admin: 06/16/16 09:23 Dose: 40 mg Prasugrel (Effient -) 5 mg PO [facility] Last Admin: 06/15/16 21:40 Dose: 5 mg Ranitidine HCl (Zantac -) 150 mg PO BID [facility] Last Admin: 06/16/16 09:15 Dose: 150 mg Ranolazine (Ranexa -) 1,000 mg PO BID [facility] Last Admin: 06/16/16 09:23 Dose: 1,000 mg Roflumilast (Daliresp -) 500 mcg PO [facility] Last Admin: 06/15/16 21:40 Dose: 500 mcg Warfarin Sodium (Coumadin -) 4 mg PO DAILY@1800 [facility] Last Admin: 06/15/16 18:32 Dose: Not Given - Objective Vital Signs: Vital Signs Temperature 98.1 F 06/16/16 07:40 Pulse Rate 60 06/16/16 07:40 Respiratory Rate 16 06/16/16 07:40 Blood Pressure 124/68 06/16/16 07:40 O2 Sat by Pulse Oximetry (%) 99 06/15/16 21:00 Cardiovascular: Yes: Regular Rate and Rhythm Respiratory: Yes: Regular, CTA Bilaterally Gastrointestinal: Yes: Normal Bowel Sounds, Soft Labs: CBC, BMP 06/16/16 06:00 06/16/16 06:00 INR, PTT INR 2.68 (0.82-1.09) H 06/16/16 06:45 Problem List - Problems (1) Chest pain Assessment/Plan: RESOLVED FOLLOW CE Troponin, BNP 06/16/16 06:00 Troponin I 0.05 CONTINUE WITH MEDS CARDIO DIURESIS Code(s): R07.9 - CHEST PAIN, UNSPECIFIED Qualifiers: Chest pain type: other chest pain Qualified Code(s): R07.89 - Other chest pain; R07.8 - Other chest pain (2) CHF (congestive heart failure) Assessment/Plan: IV LASIX FOLLOW LYTES Code(s): I50.9 - HEART FAILURE, UNSPECIFIED (3) Dyspnea Assessment/Plan: ABOVE Code(s): R06.00 - DYSPNEA, UNSPECIFIED Qualifiers: Dyspnea type: orthopnea Qualified Code(s): R06.01 - Orthopnea (4) COPD (chronic obstructive pulmonary disease) Assessment/Plan: NEBS PULM Code(s): J44.9 - CHRONIC OBSTRUCTIVE PULMONARY DISEASE, UNSPECIFIED
--- NOTE | 2016-06-16 15:12 | PN ---
Progress Note (short form) - Note Progress Note: PULMONARY CONSULTATION DICTATED 06/16/16 IMP CHEST PAIN SYNDROME ?ANGINA CHF (DIASTOLIC) ASHD S/P STENTS DYSPNEA AFIB S/P ABLATION COPD NOREEN ON AUTO-PAP MORBID OBESITY HTN GERD PLAN LASIX O2 INHALED BRONCHODILATORS NITRATES ANTICOAGULATION BIPAP AT NIGHT F/U CHEST X-RAY DR MIRANDA
--- NOTE | 2016-06-16 16:05 | CONS ---
DATE OF CONSULTATION: 06/16/2016 REFERRING PHYSICIAN: Mike Boland MD The patient is a 61-year-old white male known to me in previous hospitalizations as well as office followup with a past medical history that includes ASHD status post stents x14, hyperlipidemia, atrial fibrillation status post ablation, obstructive sleep apnea on AutoPap 4-20 cm pressure, hypertension, GERD, COPD, history of tobacco use quit in 1996, CHF chronic diastolic, [place], SVT, chronic back pain, admitted to [facility] with complaint of acute onset of shortness of breath and chest tightness. The patient states he was doing well, until the a.m. prior to admission, when he started developing shortness of breath. He also had chest heaviness. Denied any nausea, vomiting, diaphoresis. Denied any hemoptysis. He says he took an inhaled nebulizer treatment without any improvement. He presented to the emergency room with the above. He denies any recent travel. There is no history of cough or hemoptysis. PAST MEDICAL HISTORY: Again includes ASHD, status post multiple stents; hyperlipidemia; atrial fibrillation, status post ablation; hypertension; hyperlipidemia; [place]; SVT; CHF; diastolic heart failure; COPD; obstructive sleep apnea. REVIEW OF SYSTEMS: No orthopnea. Positive dyspnea. Positive chest tightness. No nausea. No vomiting. No diaphoresis. No hemoptysis. No lower extremity edema. CURRENT MEDICATIONS: Include Linzess, Tylenol, Prinivil, Asmanex, Cordarone, Coumadin, Lovaza, Tudorza, Lidoderm, albuterol, Toprol, Cardizem, Ranexa, Trilipix, Zantac, Lasix, Imdur, Lipitor, aspirin, oxycodone, Effient, Daliresp, and Protonix. PHYSICAL EXAMINATION: General: The patient is an obese male, well-developed, alert, and in no acute distress. Vital signs: He is currently afebrile; heart rate is 58; O2 saturation is 95% on room air; and blood pressure is 124/68. HEENT: Exam is normocephalic, atraumatic. Neck: Supple. Heart: Irregular, irregular with a normal S1, S2. Chest: A few bibasilar crackles. Abdomen: Soft. Bowel sounds are positive. Extremities: No cyanosis or edema. LABORATORIES: BUN is 23, creatinine 1.0. INR is 2.68. WBC is 6.8, hemoglobin 13.3, hematocrit 39.2, and platelet count of 208,000. BNP is 377. TSH is elevated at 6.19. Chest x-ray reveals cardiomegaly and mild increased pulmonary vascular markings bilaterally. IMPRESSION: 1. Shortness of breath and chest pain, possibly secondary to atherosclerotic heart disease, unstable angina. 2 Congestive heart failure. 3. Atherosclerotic heart disease. Status post myocardial infarction. Status post multiple stents. 4. Atrial fibrillation. Status post ablation. 5. Chronic obstructive pulmonary disease with mild exacerbation. 6. Obstructive sleep apnea. On AutoPap 4-20. 7. Hyperlipidemia. PLAN: Continue Lasix. Supplemental O2. Inhaled bronchodilators. Continue cardiac workup, as per Cardiology. BiPAP and CPAP at night. MICHAEL MIRANDA M.D. [id number] MTDD
[2016-06-16] MEDS: WARFARIN NA 2 MG TABLET (UD) PO SCH (17:12)
[2016-06-16] MEDS: MOMETASONE FUROATE 110 MCG/IH INHALER IH SCH (21:20)
[2016-06-16] MEDS: PRASUGREL HCL 5 MG TAB PO SCH (21:21)
[2016-06-16] MEDS: ATORVASTATIN CA 20 MG TABLET (FP) PO SCH (21:21)
[2016-06-16] MEDS: ROFLUMILAST 500 MCG TABLET PO SCH (21:21)
[2016-06-17] MEDS: ALBUTEROL SO4 0.083% IH SOL 2.5 MG/3 ML VIAL.NEB. NEB SCH ×2 (00:21→06:58)
[2016-06-17] MEDS: oxyCODONE HCL 5 MG TABLET PO PRN ×3 (01:57→11:36)
[2016-06-17] MEDS: ACETAMINOPHEN 325 MG TABLET (FP) PO PRN ×3 (01:57→11:36)
[2016-06-17] MEDS: FUROSEMIDE 40 MG/4 ML INJECTABLE VIAL IVPUSH SCH (06:35)
--- NOTE | 2016-06-17 08:19 | DS ---
Physical Examination Vital Signs: Vital Signs Temperature 98.7 F 06/17/16 05:00 Pulse Rate 55 L 06/17/16 05:00 Respiratory Rate 20 06/17/16 05:00 Blood Pressure 104/45 06/17/16 05:00 O2 Sat by Pulse Oximetry (%) 95 06/16/16 21:00 Findings/Remarks: FEELS BETTER NO CP Cardiovascular: Yes: Regular Rate and Rhythm Respiratory: Yes: Regular, CTA Bilaterally Gastrointestinal: Yes: Normal Bowel Sounds, Soft Labs: CBC, BMP 06/16/16 06:00 06/16/16 06:00 Discharge Summary Reason For Visit: CHEST PAIN Current Active Problems CHF (congestive heart failure) (Acute) Chest pain (Acute) Hospital Course: 61yo Male patient w/ significant past medical history that includes: COPD, Cardiac Stents x 14, HLD, Afib w/ ablation, Sleep Apnea, HTN, and GERD presents to ED c/o chest pains/chest pressure. Patient states symptoms began 3 am this morning w/ associated shortness of breath. Patient states he took all his medications but still has pressure. He current takes Coumadin, Effient, and ASA as anticoagulants. Denies back pain, diff breathing, rash, fever, dysuria, hematuria, or any other complaints at this time. sob with minimal exertion - Past Medical History Cardiovascular: Yes: AFIB, CAD, CHF (chronic diastolic), HTN, Hyperlipdemia, [place] , Other (SVT) Pulmonary: Yes: COPD, Sleep Apnea Gastrointestinal: Yes: GERD Psych: Yes: Anxiety Musculoskeletal: Yes: Chronic low back pain - Past Surgical History Past Surgical History: Yes: Stent (Multiple cardiac stents; pulmonary vein ablation Rx x 2 for AF/flutter) - Problems (1) Chest pain Assessment/Plan: RESOLVED Laboratory Tests 06/15/16 06/15/16 06/16/16 04:38 09:35 06:00 Troponin I 0.05 D 0.06 H 0.05 CONTINUE WITH MEDS CARDIO DIURESIS Code(s): R07.9 - CHEST PAIN, UNSPECIFIED Qualifiers: Chest pain type: other chest pain Qualified Code(s): R07.89 - Other chest pain; R07.8 - Other chest pain (2) CHF (congestive heart failure) Assessment/Plan: IV LASIX--TO PO 60 DAILY WTS--D/W PT IF WT GAIN TO INCREASE TO 80 FOLLOW LYTES Code(s): I50.9 - HEART FAILURE, UNSPECIFIED (3) Dyspnea Assessment/Plan: ABOVE Code(s): R06.00 - DYSPNEA, UNSPECIFIED Qualifiers: Dyspnea type: orthopnea Qualified Code(s): R06.01 - Orthopnea (4) COPD (chronic obstructive pulmonary disease) Assessment/Plan: NEBS PULM Code(s): J44.9 - CHRONIC OBSTRUCTIVE PULMONARY DISEASE, UNSPECIFIED Condition: Improved - Instructions Diet, Activity, Other Instructions: DAILY WEIGHT FOLLOW LABS FOR THYROID ] Referrals: Bari Nolan MD [Primary Care Provider] - 1 Week Disposition: HOME - Home Medications Comprehensive Discharge Medication List: Ambulatory Orders Albuterol 0.083% Nebulizer [place] [Ventolin 0.083% Nebulizer Soln -] 1 amp NEB HS 05/31/16 Albuterol Sulfate [Proair Respiclick] 90 mcg IH PRN PRN 05/31/16 Amiodarone HCl 200 mg PO DAILY 05/31/16 Aspirin [ASA -] 81 mg PO DAILY 05/31/16 Beclomethasone Dipropionate [Qvar] 2 puff IH BID 05/31/16 Diltiazem HCl [Diltiazem 24Hr ER] 120 mg PO DAILY 05/31/16 Famotidine [Pepcid] 40 mg PO DAILY 05/31/16 Fenofibrate Nanocrystallized [Tricor] 160 mg PO DAILY 05/31/16 Furosemide [Lasix] 40 mg PO DAILY 05/31/16 Isosorbide Mononitrate [Isosorbide Mononitrate ER] 120 mg PO DAILY 05/31/16 Lidocaine 5% Patch [Lidoderm -] 1 patch TP DAILY #30 patch 05/31/16 Linaclotide [Linzess] 145 mcg PO BID 05/31/16 Lisinopril [Prinivil] 10 mg PO DAILY 05/31/16 Metoprolol Succinate [Toprol Xl] 100 mg PO DAILY 05/31/16 Nitroglycerin [place] [Nitrolingual [place] -] 1 spray TL PRN PRN 05/31/16 [place]-3 Acid Ethyl Esters [Lovaza] 1 gm PO BID 05/31/16 Oxycodone HCl/Acetaminophen [Percocet 10-325 mg Tablet] 1 each PO BID 05/31/16 Pantoprazole Sodium [Protonix] 40 mg PO DAILY 05/31/16 Prasugrel HCl [Effient] 5 mg PO HS 05/31/16 Ranolazine [Ranexa] 1,000 mg PO BID 05/31/16 Roflumilast [Daliresp] 500 mcg PO HS 05/31/16 Tiotropium Br/Olodaterol HCl [Stiolto Respimat Inhal [place]] 2.5 gm IH BID Warfarin Sodium [Coumadin] 4 mg PO HS 05/31/16 Atorvastatin Ca [Lipitor] 40 mg PO HS #30 tablet 06/17/16 Levothyroxine [Synthroid -] 25 mcg PO DAILY@0700 #30 tablet 06/17/16
[2016-06-17] MEDS: ASPIRIN 81 MG CHEWABLE TABLETS PO SCH (09:41)
[2016-06-17] MEDS: FENOFIBRIC ACID 135 MG CAP PO SCH (09:41)
[2016-06-17] MEDS: OMEGA-3 ACID ETHYL ESTERS (FATTY-ACIDS) 1 GM CAPSULE (FP) PO SCH (09:41)
[2016-06-17] MEDS: RANOLAZINE E.R. 1,000 MG TABLET (FP) PO SCH (09:41)
[2016-06-17] MEDS: RANITIDINE HCL 150 MG TABLET (FP) PO SCH (09:42)
[2016-06-17] MEDS: PANTOPRAZOLE 40 MG TABLET (FP) PO SCH (09:43)
[2016-06-17] MEDS: LIDOCAINE 5% TOPICAL PATCH TP SCH (09:44)
[2016-06-17] MEDS: ACLIDINIUM BROMIDE 400 MCG/INH AERO.POWD IH SCH (09:44)
[2016-06-17] MEDS: AMIODARONE HCL 200 MG TABLET (FP) PO SCH (09:45)
[2016-06-17] MEDS: METOPROLOL SUCCINATE 100 MG TAB.SR.24H (FP) PO SCH (09:49)
[2016-06-17] MEDS: ISOSORBIDE MONONITRATE 60 MG TAB.SR.24H (FP) PO SCH (09:49)
[2016-06-17] MEDS: LISINOPRIL 10 MG TABLET (FP) PO SCH (09:53)
[2016-06-17 09:54] VITALS: BP 108/50; PULSE 56; TEMP 98
[2016-06-17] MEDS ORDERED: DOCUSATE SODIUM 100 MG CAPSULE (FP) PO SCH (10:00)
--- NOTE | 2016-06-17 10:45 | PN ---
Progress Note, Physician Chief Complaint: no sob History of Present Illness: 61yo Male patient w/ significant past medical history that includes: COPD, Cardiac Stents x 14, HLD, Afib w/ ablation, Sleep Apnea, HTN, and GERD presents to ED c/o chest pains/chest pressure. Patient states symptoms began 3 am this morning w/ associated shortness of breath. Patient states he took all his medications but still has pressure. He current takes Coumadin, Effient, and ASA as anticoagulants. Denies back pain, diff breathing, rash, fever, dysuria, hematuria, or any other complaints at this time. s/p multiple coronary stents s/p PTCA of distal OM1 (12/24/10) s/p pulmonary vein isolation procedures (ablation) x 2 for Atrial Fibriallation Ongoing medical problems Medical history: angina pectoris obstructive sleep apnea Anxiety Atrial fibrillation CAD: s/p multiple PCIs; the latest 12/08: patent mid LAD and RPDA prior stents; PTCA of distal OM1; latest angiograms 04/15 and 03/16: patent stents, CAUSTICISER OM Congestive heart failure (diastolic) COPD Hypercholesterolemia Hypertension Moderate aortic regurgitation Obesity s/p pulmonary vein ablation x 2 for PAF, most recently at [facility] [place] ([place]ed by Dr. Fam Pollock) - Current Medication List Current Medications: Active Medications Acetaminophen (Tylenol -) 325 mg PO Q4H PRN PRN Reason: FEVER OR PAIN Last Admin: 06/17/16 06:35 Dose: 325 mg Aclidinium [place] (Tudorza -) 1 puff IH BID [facility] Last Admin: 06/17/16 09:44 Dose: 1 puff Albuterol Sulfate (Ventolin 0.083% Nebulizer Soln -) 1 amp NEB QIDR [facility] Last Admin: 06/17/16 06:58 Dose: 1 amp Amiodarone HCl (Cordarone -) 200 mg PO DAILY [facility] Last Admin: 06/17/16 09:45 Dose: 200 mg Aspirin (Asa -) 81 mg PO DAILY [facility] Last Admin: 06/17/16 09:41 Dose: 81 mg Atorvastatin Calcium (Lipitor -) 80 mg PO HS [facility] Last Admin: 06/16/16 21:21 Dose: 80 mg Diltiazem HCl (Cardizem Cd -) 120 mg PO DAILY [facility] Last Admin: 06/17/16 09:51 Dose: 120 mg Docusate Sodium (Colace -) 300 mg PO DAILY [facility] Last Admin: 06/17/16 09:43 Dose: 300 mg Fenofibric Acid (Trilipix -) 135 mg PO DAILY [facility] Last Admin: 06/17/16 09:41 Dose: 135 mg Furosemide (Lasix Injection -) 40 mg IVPUSH BID@0600,1400 [facility] Last Admin: 06/17/16 06:35 Dose: 40 mg Isosorbide Mononitrate (Imdur -) 120 mg PO DAILY [facility] Last Admin: 06/17/16 09:49 Dose: 120 mg Levothyroxine Sodium (Synthroid -) 25 mcg PO DAILY@0700 [facility] Lidocaine (Lidoderm Patch -) 1 patch TP DAILY [facility] Last Admin: 06/17/16 09:44 Dose: 1 patch Lisinopril (Prinivil) 10 mg PO DAILY [facility] Last Admin: 06/17/16 09:53 Dose: Not Given Metoprolol Succinate (Toprol Xl -) 100 mg PO DAILY [facility] Last Admin: 06/17/16 09:49 Dose: 100 mg Mometasone Furoate (Asmanex 110mcg -) 1 puff IH [facility] Last Admin: 06/16/16 21:20 Dose: 1 puff Linaclotide [Linzess ] 145 Mcg Capsule ( Pt's Own) 145 mcg PO BID [facility] Last Admin: 06/15/16 10:26 Dose: Not Given Iatpy-8-Fngw Ethyl Esters (Lovaza -) 1 gm PO BID [facility] Last Admin: 06/17/16 09:41 Dose: 1 gm Oxycodone HCl (Roxicodone -) 10 mg PO Q4H PRN PRN Reason: PAIN Last Admin: 06/17/16 06:36 Dose: 10 mg Pantoprazole Sodium (Protonix -) 40 mg PO DAILY [facility] Last Admin: 06/17/16 09:43 Dose: 40 mg Prasugrel (Effient -) 5 mg PO HS [facility] Last Admin: 06/16/16 21:21 Dose: 5 mg Ranitidine HCl (Zantac -) 150 mg PO BID [facility] Last Admin: 06/17/16 09:42 Dose: 150 mg Ranolazine (Ranexa -) 1,000 mg PO BID [facility] Last Admin: 06/17/16 09:41 Dose: 1,000 mg Roflumilast (Daliresp -) 500 mcg PO HS [facility] Last Admin: 06/16/16 21:21 Dose: 500 mcg Warfarin Sodium (Coumadin -) 4 mg PO DAILY@1800 [facility] Last Admin: 06/16/16 17:12 Dose: 4 mg - Objective Vital Signs: Vital Signs Temperature 98 F 06/17/16 09:00 Pulse Rate 56 L 06/17/16 09:00 Respiratory Rate 18 06/17/16 09:00 Blood Pressure 108/50 06/17/16 09:00 O2 Sat by Pulse Oximetry (%) 96 06/17/16 09:00 Eyes: Yes: WNL, Conjunctiva Clear, EOM Intact HENT: Yes: WNL, Atraumatic, Normocephalic Neck: Yes: WNL, Supple, Trachea Midline Cardiovascular: Yes: WNL, Regular Rate and Rhythm Respiratory: Yes: WNL, Regular, CTA Bilaterally Gastrointestinal: Yes: WNL, Normal Bowel Sounds Genitourinary: Yes: WNL Musculoskeletal: Yes: WNL Extremities: Yes: WNL Edema: No Integumentary: Yes: WNL Neurological: Yes: WNL, Alert, Oriented ...Motor Strength: WNL Psychiatric: Yes: WNL Labs: CBC, BMP 06/16/16 06:00 06/16/16 06:00 INR, PTT INR 2.68 (0.82-1.09) H 06/16/16 06:45 Problem List - Problems (1) CHF (congestive heart failure) Code(s): I50.9 - HEART FAILURE, UNSPECIFIED (2) Chest pain Code(s): R07.9 - CHEST PAIN, UNSPECIFIED Qualifiers: Qualified Code(s): R07.89 - Other chest pain; R07.8 - Other chest pain (3) Respiratory distress Code(s): 786.09 - RESPIRATORY ABNORM NEC (4) TRACY (acute kidney injury) Code(s): N17.9 - ACUTE KIDNEY FAILURE, UNSPECIFIED (5) Contusion of rib on right side Code(s): S20.211A - CONTUSION OF RIGHT FRONT WALL OF THORAX, INITIAL ENCOUNTER Qualifiers: Qualified Code(s): S20.211A - Contusion of right front wall of thorax, initial encounter (6) Dyspnea Code(s): R06.00 - DYSPNEA, UNSPECIFIED Qualifiers: Qualified Code(s): R06.01 - Orthopnea (7) Elevated troponin Code(s): R79.89 - OTHER SPECIFIED ABNORMAL FINDINGS OF BLOOD CHEMISTRY (8) Epistaxis Code(s): R04.0 - EPISTAXIS (9) Hypotension Code(s): I95.9 - HYPOTENSION, UNSPECIFIED (10) Moderate aortic stenosis Code(s): I35.0 - NONRHEUMATIC AORTIC (VALVE) STENOSIS (11) Myocardial disease Code(s): I51.5 - MYOCARDIAL DEGENERATION (12) Obstructive sleep apnea Code(s): G47.33 - OBSTRUCTIVE SLEEP APNEA (ADULT) (PEDIATRIC) (13) Rib fractures Code(s): S22.39XA - FRACTURE OF ONE RIB, UNSP SIDE, INIT FOR CLOS FX Qualifiers: Qualified Code(s): S22.41XK - Multiple fractures of ribs, right side, subsequent encounter for fracture with nonunion (14) Atrial fibrillation Code(s): I48.91 - UNSPECIFIED ATRIAL FIBRILLATION (15) CAD (coronary artery disease) Code(s): I25.10 - ATHSCL HEART DISEASE OF [place] CORONARY ARTERY W/O ANG PCTRS (16) COPD (chronic obstructive pulmonary disease) Code(s): J44.9 - CHRONIC OBSTRUCTIVE PULMONARY DISEASE, UNSPECIFIED (17) Chronic abdominal pain Code(s): R10.9 - UNSPECIFIED ABDOMINAL PAIN G89.29 - OTHER CHRONIC PAIN (18) Chronic back pain Code(s): M54.9 - DORSALGIA, UNSPECIFIED G89.29 - OTHER CHRONIC PAIN (19) Chronic diastolic heart failure Code(s): I50.32 - CHRONIC DIASTOLIC (CONGESTIVE) HEART FAILURE (20) Constipation Code(s): K59.00 - CONSTIPATION, UNSPECIFIED (21) History of coronary artery stent placement Code(s): Z95.5 - PRESENCE OF CORONARY ANGIOPLASTY IMPLANT AND GRAFT (22) Hyperlipidemia Code(s): E78.5 - HYPERLIPIDEMIA, UNSPECIFIED (23) Hypertension Code(s): I10 - ESSENTIAL (PRIMARY) HYPERTENSION Assessment/Plan sob resolved cp sx chf diastolic decompensated improved patent stent s c.cath 2016 paf mod AR htn hld copd morbid obesity Plan d/c Telemetry IV lasix cont AC and DAPT MIBI stress test as the outpatient stable for outpatient f/u
--- NOTE | 2016-06-17 10:46 | PN ---
Progress Note, Physician History of Present Illness: pulmonary alert,feeling better,-cp,-sob - Current Medication List Current Medications: Active Medications Acetaminophen (Tylenol -) 325 mg PO Q4H PRN PRN Reason: FEVER OR PAIN Last Admin: 06/17/16 06:35 Dose: 325 mg Aclidinium [place] (Tudorza -) 1 puff IH BID [facility] Last Admin: 06/17/16 09:44 Dose: 1 puff Albuterol Sulfate (Ventolin 0.083% Nebulizer Soln -) 1 amp NEB QIDR [facility] Last Admin: 06/17/16 06:58 Dose: 1 amp Amiodarone HCl (Cordarone -) 200 mg PO DAILY [facility] Last Admin: 06/17/16 09:45 Dose: 200 mg Aspirin (Asa -) 81 mg PO DAILY [facility] Last Admin: 06/17/16 09:41 Dose: 81 mg Atorvastatin Calcium (Lipitor -) 80 mg PO HS [facility] Last Admin: 06/16/16 21:21 Dose: 80 mg Diltiazem HCl (Cardizem Cd -) 120 mg PO DAILY [facility] Last Admin: 06/17/16 09:51 Dose: 120 mg Docusate Sodium (Colace -) 300 mg PO DAILY [facility] Last Admin: 06/17/16 09:43 Dose: 300 mg Fenofibric Acid (Trilipix -) 135 mg PO DAILY [facility] Last Admin: 06/17/16 09:41 Dose: 135 mg Furosemide (Lasix Injection -) 40 mg IVPUSH BID@0600,1400 [facility] Last Admin: 06/17/16 06:35 Dose: 40 mg Isosorbide Mononitrate (Imdur -) 120 mg PO DAILY [facility] Last Admin: 06/17/16 09:49 Dose: 120 mg Levothyroxine Sodium (Synthroid -) 25 mcg PO DAILY@0700 [facility] Lidocaine (Lidoderm Patch -) 1 patch TP DAILY [facility] Last Admin: 06/17/16 09:44 Dose: 1 patch Lisinopril (Prinivil) 10 mg PO DAILY [facility] Last Admin: 06/17/16 09:53 Dose: Not Given Metoprolol Succinate (Toprol Xl -) 100 mg PO DAILY [facility] Last Admin: 06/17/16 09:49 Dose: 100 mg Mometasone Furoate (Asmanex 110mcg -) 1 puff IH HS [facility] Last Admin: 06/16/16 21:20 Dose: 1 puff Linaclotide [Linzess ] 145 Mcg Capsule ( Pt's Own) 145 mcg PO BID [facility] Last Admin: 06/15/16 10:26 Dose: Not Given [place]rmco-4-Cooj Ethyl Esters (Lovaza -) 1 gm PO BID [facility] Last Admin: 06/17/16 09:41 Dose: 1 gm Oxycodone HCl (Roxicodone -) 10 mg PO Q4H PRN PRN Reason: PAIN Last Admin: 06/17/16 06:36 Dose: 10 mg Pantoprazole Sodium (Protonix -) 40 mg PO DAILY [facility] Last Admin: 06/17/16 09:43 Dose: 40 mg Prasugrel (Effient -) 5 mg PO HS [facility] Last Admin: 06/16/16 21:21 Dose: 5 mg Ranitidine HCl (Zantac -) 150 mg PO BID [facility] Last Admin: 06/17/16 09:42 Dose: 150 mg Ranolazine (Ranexa -) 1,000 mg PO BID [facility] Last Admin: 06/17/16 09:41 Dose: 1,000 mg Roflumilast (Daliresp -) 500 mcg PO HS [facility] Last Admin: 06/16/16 21:21 Dose: 500 mcg Warfarin Sodium (Coumadin -) 4 mg PO DAILY@1800 [facility] Last Admin: 06/16/16 17:12 Dose: 4 mg - Objective Vital Signs: Vital Signs Temperature 98 F 06/17/16 09:00 Pulse Rate 56 L 06/17/16 09:00 Respiratory Rate 18 06/17/16 09:00 Blood Pressure 108/50 06/17/16 09:00 O2 Sat by Pulse Oximetry (%) 96 06/17/16 09:00 Constitutional: Yes: Calm, Obese Eyes: Yes: WNL HENT: Yes: WNL Neck: Yes: WNL Cardiovascular: Yes: Pulse Irregular, S1, S2 Respiratory: Yes: Diminished Gastrointestinal: Yes: Normal Bowel Sounds, Soft Extremities: Yes: WNL Edema: No Labs: CBC, BMP Assessment/Plan IMP CHEST PAIN SYNDROME improved CHF (DIASTOLIC) ASHD S/P STENTS DYSPNEA AFIB S/P ABLATION COPD NOREEN ON AUTO-PAP MORBID OBESITY HTN GERD PLAN LASIX PO O2 INHALED BRONCHODILATORS NITRATES ANTICOAGULATION AUTOPAP DR MIRANDA
[2016-06-18] MEDS ORDERED: LEVOTHYROXINE NA 25 MCG TABLET (FP) PO SCH (07:00)
== END 2016-06-17 12:26 | disposition home or self-care (01) | DRG 313 ==
LOC: JER 04:13 → JERBED 06:23 → UNDOADMOB 06:41 → OBSVTOIN 09:26 → J4W 16:30
PROVIDERS: ADMIT Family Medicine; ATTEND Family Medicine
DX: R07.89 Other chest pain (principal); I50.32 Chronic diastolic (congestive) heart failure; I11.0 Hypertensive heart disease with heart failure; J44.9 Chronic obstructive pulmonary disease, unspecified; E78.5 Hyperlipidemia, unspecified; I10 Essential (primary) hypertension; G47.30 Sleep apnea, unspecified; K21.9 Gastro-esophageal reflux disease without esophagitis; I48.91 Unspecified atrial fibrillation; I25.2 Old myocardial infarction; I25.118 Atherosclerotic heart disease of native coronary artery with other forms of angina pectoris; I35.1 Nonrheumatic aortic (valve) insufficiency; G47.33 Obstructive sleep apnea (adult) (pediatric); F41.8 Other specified anxiety disorders; M54.5 Low back pain; E66.8 Other obesity; Z68.39 Body mass index [BMI] 39.0-39.9, adult; Z71.3 Dietary counseling and surveillance; Z95.5 Presence of coronary angioplasty implant and graft
CPT/HCPCS: 36415; 71020-TC; 80048; 80053; 80061; 81003; 82550; 83036; 83721; 83735; 83880; 84443; 84484; 85025; 85610; 93005; 93010; 94640; 94660; 99284-25; G0378

== ENCOUNTER 2016-07-10 20:13 | Emergency (ER) | payer OTHER ==
[2016-07-10 20:25] VITALS: BMI 39.1
[2016-07-10 22:08] LABS: BASOPHIL 0.6 % (0-2.0); EOSINOPHIL 2.3 % (0-4.5); MCH 27.2 pg (25.7-33.7); MCHC 33.5 g/dl (32.0-35.9); MEAN CELL VOLUME 81.1 fl (80-96); MEAN PLT VOLUME 7.7 fl (7.5-11.1); NEUTROPHILS 67.3 % (42.8-82.8); PLATELET COUNT 219 K/MM3 (134-434); RDW 15.7 % (11.9-15.9); WHITE BLOOD COUNT 7.1 K/mm3 (4.0-10.0)
[2016-07-10] MEDS ORDERED: morphine CARPU-JECT 2 MG/1 ML DISP.SYRIN IVPUSH ONE (22:14)
[2016-07-10 22:24] LABS: INR 3.14 (0.82-1.09); PROTHROMBIN TIME (PATIENT) 35.3 SEC (9.98-11.88)
[2016-07-10 22:42] LABS: ALBUMIN 4.1 g/dl (3.4-5.0); ANION GAP 8 (8-16); BILIRUBIN,TOTAL 0.4 mg/dL (0.2-1.0); CO2 29 mmol/L (21-32); COCKROFT - GAULT 121.27; GLUCOSE,RANDOM 89 mg/dL (74-106); SGPT/ALT 29 U/L (12-78); TOT PROT 7.5 g/dl (6.4-8.2)
[2016-07-10] MEDS ORDERED: morphine CARPU-JECT 2 MG/1 ML DISP.SYRIN ONE (22:45)
[2016-07-10 22:46] LABS: ALK PHOS 50 U/L (45-117); TROPONIN I 0.03 ng/ml (0.00-0.05)
[2016-07-10 22:48] LABS: SGOT/AST 26 U/L (15-37)
--- NOTE | 2016-07-10 23:19 | PDOC ---
History of Present Illness - General Chief Complaint: Pain, Acute Stated Complaint: ABD PAIN/BACK PAIN Time Seen by Provider: 07/10/16 20:38 - History of Present Illness Initial Comments: 07/10/16 23:16 CHIEF COMPLAINT: abd/back pain HISTORY OF PRESENT ILLNESS: 61 yo M with significant PMH of COPD, cardiac stents x 14, HLD, WI ("in the 80s") atrial fibrillation w/ ablation x 3, HTN, sleep apnea, and GERD presents to ED with abdominal pain and back pain. Patient reports he "always has back pain" and "always has abdominal pain" but today the pain became worse. He states he recently had a "CT of the back" ordered by PCP Ovidio. He denies any nausea, vomiting, diarrhea, or rectal bleeding, or any fever or chills. His last BM was this morning and was normal. He reports his abdominal pain as epigastric "and moves up and down." He does not complain of any chest pain, shortness of breath, or palpitations. No recent travel or sick contacts. PAST MEDICAL HISTORY: as per HPI FAMILY HISTORY: Denies SOCIAL HISTORY:Denies tobacco, alcohol, illicit drug use. SURGICAL HISTORY: Denies ALLERGIES: levofloxacin REVIEW OF SYSTEMS General/Constitutional: Denies fever or chills. Denies weakness, weight change. HEENT: Denies change in vision. Denies ear pain or discharge. Denies sore throat. Cardiovascular: Denies chest pain or shortness of breath. Respiratory: Denies cough, wheezing, or hemoptysis. Gastrointestinal: Epigastric pain. Denies vomiting, diarrhea or constipation. Denies rectal bleeding. Genitourinary: Denies dysuria, frequency, or change in urination. Musculoskeletal: Denies joint or muscle swelling or pain. Denies neck or back pain. Skin and breasts: Denies rash or easy bruising. PHYSICAL EXAM General Appearance: Well-appearing, appropriately dressed. No apparent distress. HEENT: EOMI, PERRLA, normal ENT inspection, normal voice, TMs normal, pharynx normal. No conjunctival pallor. No photophobia, scleral icterus. Neck: Supple. Trachea midline. No tenderness, rigidity, carotid bruit, stridor , lymphadenopathy, or thyromegaly. Respiratory/Chest: Lungs CTAB. No shortness of breath, chest tenderness, respiratory distress, accessory muscle use. No crackles, rales, rhonchi, stridor , wheezing, dullness Cardiovascular: RRR. S1, S2. No JVD, murmur, bradycardia, tachycardia. Vascular Pulses: Dorsalis-Pedis (R): 2+, Dorsalis-Pedis (L): 2+ Gastrointestinal/Abdominal: Protuberant abdomen. No tenderness or rebound tenderness. No organomegaly, pulsatile mass, guarding, hernia, hepatomegaly, splenomegaly. Musculoskeletal/Extremities: Normal inspection. FROM of all extremities, normal capillary refill. Pelvis Stable. No CVA tenderness. No tenderness to extremities, pedal edema, swelling, erythema or deformity. Integumentary: Appropriate color, dry, warm. 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 Fully oriented, alert. Appropriate mood/affect. Motor strength 5/5. No appreciable EOM palsy, facial droop or sensory deficit. 07/10/16 23:19 Past History - Past Medical History Allergies/Adverse Reactions: Allergies Allergy/AdvReac Type Severity Reaction Status Date / Time levofloxacin [From Levaquin] Allergy Intermediate Swelling Verified 07/10/16 23: 26 Home Medications: Ambulatory Orders Albuterol 0.083% Nebulizer Pauline [Ventolin 0.083% Nebulizer Soln -] 1 amp NEB HS 05/31/16 Albuterol Sulfate [Proair Respiclick] 90 mcg IH PRN PRN 05/31/16 Amiodarone HCl 200 mg PO DAILY 05/31/16 Aspirin [ASA -] 81 mg PO DAILY 05/31/16 Beclomethasone Dipropionate [Qvar] 2 puff IH BID 05/31/16 Diltiazem HCl [Diltiazem 24Hr ER] 120 mg PO DAILY 05/31/16 Famotidine [Pepcid] 40 mg PO DAILY 05/31/16 Fenofibrate Nanocrystallized [Tricor] 160 mg PO DAILY 05/31/16 Furosemide [Lasix] 40 mg PO DAILY 05/31/16 Isosorbide Mononitrate [Isosorbide Mononitrate ER] 120 mg PO DAILY 05/31/16 Lidocaine 5% Patch [Lidoderm -] 1 patch TP DAILY #30 patch 05/31/16 Linaclotide [Linzess] 145 mcg PO BID 05/31/16 Lisinopril [Prinivil] 10 mg PO DAILY 05/31/16 Metoprolol Succinate [Toprol Xl] 100 mg PO DAILY 05/31/16 Nitroglycerin Clifford [Nitrolingual Clifford -] 1 spray TL PRN PRN 05/31/16 [place]-3 Acid Ethyl Esters [Lovaza] 1 gm PO BID 05/31/16 Oxycodone HCl/Acetaminophen [Percocet 10-325 mg Tablet] 1 each PO BID 05/31/16 Pantoprazole Sodium [Protonix] 40 mg PO DAILY 05/31/16 Prasugrel HCl [Effient] 5 mg PO HS 05/31/16 Ranolazine [Ranexa] 1,000 mg PO BID 05/31/16 Roflumilast [Daliresp] 500 mcg PO HS 05/31/16 Tiotropium Br/Olodaterol HCl [Stiolto Respimat Inhal Clifford] 2.5 gm IH BID Warfarin Sodium [Coumadin] 4 mg PO HS 05/31/16 Atorvastatin Ca [Lipitor] 40 mg PO HS #30 tablet 06/17/16 Levothyroxine [Synthroid -] 25 mcg PO DAILY@0700 #30 tablet 06/17/16 Simethicone [Gas Relief] 80 mg PO TID PRN #12 tab.chew 07/11/16 Anemia: No Asthma: No Cancer: No Cardiac Disorders: Yes (A FIB, [place]) CVA: No COPD: Yes CHF: Yes Dementia: No Diabetes: Yes GI Disorders: Yes (ACID REFLUX) Disorders: No HTN: Yes Hypercholesterolemia: Yes Liver Disease: No Suicide Attempt (Hx): No Seizures: No Thyroid Disease: No - Surgical History Cardiac Surgery: Yes (13 stent placements & CARDIAC ABLIATION 01/2014) - Immunization History Immunization Up to Date: Yes - Psycho/Social/Smoking Cessation Hx Anxiety: No Suicidal Ideation: No Smoking Status: No Smoking History: Former smoker Have you smoked in the past 12 months: No Number of Cigarettes Smoked Daily: 0 If you are a former smoker, when did you quit?: 1997 Information on smoking cessation initiated: No Hx Alcohol Use: No Drug/Substance Use Hx: No Substance Use Type: None Hx Substance Use Treatment: No Abd/GI Specific PMHX - Complaint Specific PMHX GERD: Yes *Physical Exam - Vital Signs Last Vital Signs Temp Pulse Resp BP Pulse Ox 98.7 F 59 L 18 128/70 97 07/10/16 20:22 07/10/16 20:22 07/10/16 20:22 07/10/16 20:22 07/10/16 20:22 ED Treatment Course - LABORATORY CBC & Chemistry Diagram: 07/10/16 22:00 07/10/16 22:00 - ADDITIONAL ORDERS Additional order review: Laboratory Results 07/10/16 07/10/16 07/10/16 22:00 22:00 22:00 INR Sodium 141 Potassium 3.8 Chloride 104 Carbon Dioxide 29 Anion Gap 8 BUN 20 H Creatinine 1.0 Creat Clearance w eGFR > 60 Random Glucose 89 Calcium 9.0 Magnesium 2.0 Total Bilirubin 0.4 AST 26 D ALT 29 D Alkaline Phosphatase 50 Creatine Kinase 150 D Troponin I 0.03 D B-Natriuretic Peptide 463.22 H Total Protein 7.5 Albumin 4.1 Lipase 53 L 07/10/16 22:00 INR 3.14 H Sodium Potassium Chloride Carbon Dioxide Anion Gap BUN Creatinine Creat Clearance w eGFR Random Glucose Calcium Magnesium Total Bilirubin AST ALT Alkaline Phosphatase Creatine Kinase Troponin I B-Natriuretic Peptide Total Protein Albumin Lipase 07/10/16 22:00 RBC 4.75 MCV 81.1 MCHC 33.5 RDW 15.7 MPV 7.7 Neutrophils % 67.3 Lymphocytes % 21.0 Monocytes % 8.8 Eosinophils % 2.3 Basophils % 0.6 - RADIOLOGY Radiology Studies Ordered: Category Date Time Status ABDOMEN/PELVIS CTA W/WO CONTR [CT] Stat CT Scan 07/10/16 23:04 Ordered CHEST PA & LAT [RAD] Stat Radiology 07/10/16 21:22 Taken - Medications Given in the ED: ED Medications Discontinued Medications Generic Name Dose Route Start Last Admin Trade Name Freq PRN Reason Stop Dose Admin Morphine Sulfate 2 mg 07/10/16 22:14 07/10/16 22:45 Morphine Injection - IVPUSH 07/10/16 22:15 2 mg ONCE ONE Administration Medical Decision Making - Medical Decision Making 07/10/16 23:24 61 yo M with significant PMH of COPD, cardiac stents x 14, HLD, WI ("in the 80s ") atrial fibrillation w/ ablation x 3, HTN, sleep apnea, and GERD presents to ED with abdominal pain and back pain. DDx includes WI, GERD, AAA, dissection, pancreatitis. -CBC, CMP, PT/INR, Mg, -EKG, CXR -Abdomen & pelvis CTA 07/11/16 04:04 FINDINGS: Right middle lobe consolidation likely represents pneumonia, although prominent atelectasis is also considered. The lung bases are otherwise clear.. The heart is mildly enlarged.. Normal liver, gallbladder, pancreas, spleen, adrenal glands and kidneys. The stomach and abdominal small and large bowel are normal. There is no aortic dissection or aneurysm. There is no significant retroperitoneal lymphadenopathy. The pelvic small and large bowel are normal. The appendix is normal. The urinary bladder and prostate gland are normal. No pelvic free fluid is identified. There is no significant pelvic lymphadenopathy. There is a subacute fracture of the right seventh rib, incompletely visualized IMPRESSION: Right middle lobe pneumonia or prominent atelectasis. Subacute right seventh rib fracture, incompletely visualized. Consider further evaluation with radiographs or CT of the chest. No aortic dissection or aneurysm. THIS DOCUMENT HAS BEEN ELECTRONICALLY SIGNED Antwan Zhao MD Mylanta Pepcid Morphine Patient reassessed; states he feels "much better" at this time. Advised patient to take meds as prescribed and f/u with GI and PCP this ewek. Advised patient of signs and symptoms for return to ER; patient verbalized understanding and agrees to plan. *DC/Admit/Observation/Transfer Diagnosis at time of Disposition: Rib fractures Qualifiers: Encounter type: subsequent encounter Rib fracture type: single rib Fracture type: closed Laterality: right Fracture healing: with routine healing Qualified Code(s): S22.31XD - Fracture of one rib, right side, subsequent encounter for fracture with routine healing - Discharge Dispostion Admit: No - Prescriptions Prescriptions: Simethicone [Gas Relief] 80 mg PO TID PRN #12 tab.chew PRN Reason: Gas - Referrals Referrals: Bari Nolan MD [Primary Care Provider] - - Patient Instructions Printed Discharge Instructions: DI for Rib Fracture Additional Instructions: You were already treated for pneumonia and your symptoms should improve over time. Please take medication for your gas as prescribed and follow up with gastroenterology this week. Please follow up with Dr. Nolan as planned. If you experience chest pain, shortness of breath, headache, nausea, vomiting, diarrha, fever, chills, or any new or worsening symptoms, please return to the ER.
[2016-07-11] MEDS ORDERED: morphine CARPU-JECT 2 MG/1 ML DISP.SYRIN IVPUSH ONE (03:08)
[2016-07-11] MEDS ORDERED: FAMOTIDINE 20 MG/50 ML IVPB 50 ML IVPB ONE ×2 (03:10→03:30)
[2016-07-11] MEDS ORDERED: MAG HYDROX/AL HYDROX/SIMETH 30 ML UNIT-DOSE CUP PO ONE (03:13)
[2016-07-11] MEDS ORDERED: MAG HYDROX/AL HYDROX/SIMETH 30 ML UNIT-DOSE CUP ONE (03:29)
[2016-07-11] MEDS ORDERED: morphine CARPU-JECT 2 MG/1 ML DISP.SYRIN ONE (03:29)
[2016-07-11 04:14] VITALS: BP 128/79; PULSE 78; TEMP 97.4
--- NOTE | 2016-07-12 10:42 | EKG ---
Test Reason : Blood Pressure : / mmHG Vent. Rate : 061 BPM Atrial Rate : 061 BPM P-R Int : 210 ms QRS Dur : 166 ms QT Int : 510 ms P-R-T Axes : 077 -84 017 degrees QTc Int : 513 ms SINUS RHYTHM WITH 1ST DEGREE A-V BLOCK RIGHT BUNDLE BRANCH BLOCK LEFT ANTERIOR FASCICULAR BLOCK BIFASCICULAR BLOCK LATERAL INFARCT , AGE UNDETERMINED ABNORMAL ECG WHEN COMPARED WITH ECG OF 15-JUN-2016 09:51, NO SIGNIFICANT CHANGE WAS FOUND Confirmed by GILMAR GUADALUPE, CYNTHIA ([id number]) on 07/12/2016 10:41:49 AM Referred By: Confirmed By:CYNTHIA SCHAFER MD
== END 2016-07-11 04:14 | disposition home or self-care (01) ==
LOC: JER 20:13
PROC: 3E033GC Introduction of Other Therapeutic Substance into Peripheral Vein, Percutaneous Approach (ICD-10-PCS; principal; 2016-07-10)
PROC: 3E033NZ Introduction of Analgesics, Hypnotics, Sedatives into Peripheral Vein, Percutaneous Approach (ICD-10-PCS; 2016-07-10)
DX: J18.9 Pneumonia, unspecified organism (principal); S22.31XD Fracture of one rib, right side, subsequent encounter for fracture with routine healing; X58.XXXD Exposure to other specified factors, subsequent encounter; I25.2 Old myocardial infarction; I25.10 Atherosclerotic heart disease of native coronary artery without angina pectoris; I10 Essential (primary) hypertension; Z95.5 Presence of coronary angioplasty implant and graft; I48.91 Unspecified atrial fibrillation; J44.9 Chronic obstructive pulmonary disease, unspecified; K21.9 Gastro-esophageal reflux disease without esophagitis; G47.30 Sleep apnea, unspecified
CPT/HCPCS: 36415; 71020-TC; 74177-TC; 80053; 82550; 82553; 83690; 83735; 83880; 84484; 85025; 85610; 93005; 93010; 99283-25

== ENCOUNTER 2016-08-22 07:29 | Inpatient (IN) | payer OTHER ==
[2016-08-22] MEDS ORDERED: ASPIRIN 325 MG TABLET PO ONE (07:45)
[2016-08-22] MEDS ORDERED: ASPIRIN 325 MG ENTERIC COATED TABLET (FP) ONE (07:47)
--- NOTE | 2016-08-22 07:58 | PDOC ---
History of Present Illness - General History Source: Patient - History of Present Illness Presenting Symptoms: Chest Pain, Short of Breath Severity/Quality: reports: other (heaviness) Chest Pain Radiation: reports: no radiation Prior Chest Pain/Cardiac Workup: reports: Other (multiple stents) Beta Mary given by EMS (Core Measure): Yes Beta Mary taken at Home (Core Measure): No <Gino Olson - Last Filed: 08/22/16 10:19> <Andreina Christianson - Last Filed: 08/23/16 16:51> - General Chief Complaint: Chest Pain Stated Complaint: CHEST PAIN Time Seen by Provider: 08/22/16 07:39 Past History - Past Medical History Anemia: No Asthma: No Cancer: No Cardiac Disorders: Yes (A FIB, [place]) CVA: No COPD: Yes CHF: Yes Dementia: No Diabetes: Yes GI Disorders: Yes (ACID REFLUX) Disorders: No HTN: Yes Hypercholesterolemia: Yes Liver Disease: No Suicide Attempt (Hx): No Seizures: No Thyroid Disease: No - Surgical History Cardiac Surgery: Yes (13 stent placements & CARDIAC ABLIATION 01/2014) - Immunization History Immunization Up to Date: Yes - Psycho/Social/Smoking Cessation Hx Anxiety: No Suicidal Ideation: No Smoking Status: No Smoking History: Former smoker Have you smoked in the past 12 months: No Number of Cigarettes Smoked Daily: 0 If you are a former smoker, when did you quit?: 1997 Information on smoking cessation initiated: No Hx Alcohol Use: No Drug/Substance Use Hx: No Substance Use Type: None Hx Substance Use Treatment: No <Gino Olson - Last Filed: 08/22/16 10:19> <Andreina Christianson - Last Filed: 08/23/16 16:51> - Past Medical History Allergies/Adverse Reactions: Allergies Allergy/AdvReac Type Severity Reaction Status Date / Time levofloxacin [From Levaquin] Allergy Intermediate Swelling Verified 08/22/16 07: 30 Home Medications: Ambulatory Orders Albuterol Sulfate [Proair Respiclick] 90 mcg IH PRN 08/22/16 Amiodarone HCl 200 mg PO DAILY 08/22/16 Aspirin [ASA -] 81 mg PO DAILY 08/22/16 Diltiazem HCl [Diltiazem ER] 120 mg PO DAILY 08/22/16 Escitalopram Oxalate [Lexapro -] 10 mg PO DAILY 08/22/16 Fenofibric Acid [Fibricor] 105 mg PO DAILY 08/22/16 Furosemide [Lasix] 40 mg PO DAILY 08/22/16 Isosorbide Mononitrate [Isosorbide Mononitrate ER] 120 mg PO DAILY 08/22/16 Levalbuterol HCl 1.25 mg IH TID 08/22/16 Linaclotide [Linzess] 290 mcg PO DAILY 08/22/16 Lisinopril 10 mg PO DAILY 08/22/16 Metoclopramide HCl [Reglan] 10 mg PO PRN 08/22/16 Metoprolol Succinate [Toprol Xl] 100 mg PO DAILY 08/22/16 Nitroglycerin Martin [Nitrolingual Martin -] 1 spray TL PRN 08/22/16 Omeprazole 20 mg PO DAILY 08/22/16 Oxycodone HCl 30 mg PO DAILY 08/22/16 Oxycodone HCl/Acetaminophen [Percocet 10-325 mg Tablet] 1 each PO PRN 08/22/16 Pantoprazole Sodium [Protonix] 40 mg PO DAILY 08/22/16 Prasugrel HCl [Effient] 5 mg PO DAILY 08/22/16 Pravastatin Sodium [Pravachol (Nf)] 80 mg PO HS 08/22/16 Ranitidine HCl [Zantac] 150 mg PO DAILY 08/22/16 Ranolazine [Ranexa] 1,000 mg PO DAILY 08/22/16 Sucralfate [Carafate -] 1 gm PO DAILY 08/22/16 Tamsulosin HCl [Flomax] 0.4 mg PO DAILY 08/22/16 Tiotropium Br/Olodaterol HCl [Stiolto Respimat Inhal Martin] 4 gm IH DAILY Warfarin Na [Coumadin] 3 mg PO DAILY 08/22/16 Cardiac Specific PMH - Complaint Specific PMHX Abdominal Aortic Aneurysm: No Angina: No Cardiac Arrhythmia: No Cardiac Stent: Yes GERD: Yes Pacemaker: No Pulmonary Embolus: No Peripheral Vascular Disease: No <Gino Olson - Last Filed: 08/22/16 10:19> Review of Systems - Review of Systems Constitutional: No: Chills, Fever HEENTM: No: Blurred Vision Respiratory: Yes: Shortness of Breath. No: Cough, Wheezing Cardiac (ROS): Yes: Chest Pain. No: Lightheadedness, Palpitations ABD/GI: No: Nausea, Vomiting Neurological: No: Headache, Dizziness <UrduGino - Last Filed: 08/22/16 10:19> *Physical Exam - Physical Exam General Appearance: Yes: Appropriately Dressed. No: Apparent Distress HEENT: positive: Normal Voice Neck: positive: Supple Respiratory/Chest: positive: Lungs Clear, Normal Breath Sounds. negative: Respiratory Distress, Wheezing Cardiovascular: positive: Regular Rate, S1, S2 Gastrointestinal/Abdominal: positive: Soft. negative: Tender Extremity: positive: Normal Inspection Integumentary: positive: Dry, Warm Neurologic: positive: Fully Oriented, Alert, Normal Mood/Affect <UrduGino - Last Filed: 08/22/16 10:19> - Vital Signs Last Vital Signs Temp Pulse Resp BP Pulse Ox 99.3 F 57 L 20 96/54 97 08/23/16 14:00 08/23/16 14:00 08/23/16 14:00 08/23/16 14:00 08/23/16 12:05 ED Treatment Course - LABORATORY CBC & Chemistry Diagram: 08/22/16 07:39 08/22/16 07:39 <UrduYelitzaKevin - Last Filed: 08/22/16 10:19> - LABORATORY CBC & Chemistry Diagram: 08/22/16 07:39 08/22/16 07:39 <Andreina Christianson - Last Filed: 08/23/16 16:51> - ADDITIONAL ORDERS Additional order review: 08/22/16 07:39 RBC 4.24 MCV 84.4 MCHC 34.0 RDW 14.6 MPV 7.5 Neutrophils % 74.6 Lymphocytes % 14.1 D Monocytes % 8.2 Eosinophils % 2.7 Basophils % 0.4 - Medications Given in the ED: ED Medications Discontinued Medications Generic Name Dose Route Start Last Admin Trade Name Freq PRN Reason Stop Dose Admin Acetaminophen 325 mg 08/22/16 22:00 08/22/16 21:10 Tylenol - PO 325 mg BID RENY Administration Aspirin 325 mg 08/22/16 07:45 08/22/16 07:48 Asa - PO 08/22/16 07:46 325 mg ONCE ONE Administration Ceftriaxone Sodium 1 mg 08/22/16 10:18 08/22/16 10:26 Rocephin - IVPUSH 08/22/16 10:19 1 mg ONCE ONE Administration Furosemide 40 mg 08/22/16 10:17 08/22/16 10:26 Lasix Injection - IVPUSH 08/22/16 10:18 40 mg ONCE ONE Administration Azithromycin 500 mg/ Dextrose 250 mls @ 250 mls/hr 08/22/16 10:18 08/22/16 10: 26 IVPB 08/22/16 11:17 250 mls/hr ONCE ONE Administration Morphine Sulfate 2 mg 08/22/16 15:41 08/22/16 15:53 Morphine Injection - IVPUSH 08/22/16 15:42 2 mg ONCE ONE Administration Oxycodone HCl 5 mg 08/23/16 04:34 08/23/16 04:43 Roxicodone - PO 08/23/16 04:35 5 mg ONCE ONE Administration Tramadol HCl 50 mg 08/22/16 11:08 08/22/16 11:17 Ultram - PO 08/22/16 11:09 50 mg ONCE ONE Administration Medical Decision Making <Gino Olson - Last Filed: 08/22/16 10:19> <Andreina Christianson - Last Filed: 08/23/16 16:51> - Medical Decision Making 08/22/16 07:52 61-year-old male history of COPD, hypertension, hyperlipidemia, CAD with 14 stents, CHF, Afib with ablation, on coumadin, effient and asa, sleep apnea, and GERD presents to the ED with sensation of heaviness to chest that started at 4: 30 this morning. States he has shortness of breath at baseline that worsened this a.m. Took his BP at home this am and states BP was 200s/80s. States he sprayed sublingual nitro once this am w/ no relief. Denies any diaphoresis, nausea, vomiting, wheezing, palpitations, leg pain, swelling. States symptoms similar to symptoms prior to previous stent. Of note, patient was admitted to [facility] in May of this year for chest pain and tx for CHF. Plan per cards was to do out-pt stress but that was not done per pt See exam Chest discomfort w/ sob R/o ACS vs CHF flare VS COPD flare vs PNA, less likely PE or dissection -ekg -asa -cxr -labs -cards c/s -admission anticipated 08/22/16 08:11 08/22/16 08:19 08/22/16 08:20 08/22/16 09:39 EKG unchanged and labs unremarkable. Pt offered nebs but refuses as took a treatment this am at home w/ no relief. No chest tightness or wheezing at this time. Case d/w Dr. Manuel or cards and Dr Nolan and patient admitted 08/22/16 10:19 CXR done and read as b/l pleural effusion and ?infiltrate. IV lasix and abx in progress (Gino Olson) 08/23/16 16:49 Pt presents to the ED complaining of shortness of breath and chest discomfort that is somewhat worse that his chronic symptoms. No new issues found during work up but given age and comorbidities, will admit to medicine for serial cardiac enzymes and possible stress test. (Andreina Christianson) *DC/Admit/Observation/Transfer - Discharge Dispostion Admit: Yes <Gino Olson - Last Filed: 08/22/16 10:19> <Andreina Christianson - Last Filed: 08/23/16 16:51> Diagnosis at time of Disposition: Chest heaviness, SOB (shortness of breath), Pleural effusion - Discharge Dispostion Condition at time of disposition: Fair - Referrals
[2016-08-22 08:05] LABS: BASOPHIL 0.4 % (0-2.0); EOSINOPHIL 2.7 % (0-4.5); MCH 28.7 pg (25.7-33.7); MEAN CELL VOLUME 84.4 fl (80-96); MEAN PLT VOLUME 7.5 fl (7.5-11.1); NEUTROPHILS 74.6 % (42.8-82.8); PLATELET COUNT 196 K/MM3 (134-434); RDW 14.6 % (11.9-15.9); WHITE BLOOD COUNT 7.2 K/mm3 (4.0-10.0)
[2016-08-22 08:32] LABS: ALBUMIN 3.8 g/dl (3.4-5.0); ANION GAP 9 (8-16); BILIRUBIN,TOTAL 0.5 mg/dL (0.2-1.0); CALCIUM 8.9 mg/dL (8.5-10.1); CO2 29 mmol/L (21-32); CREATININE 1.1 mg/dL (0.7-1.3); GLUCOSE,RANDOM 108 mg/dL (74-106); SGOT/AST 19 U/L (15-37); SGPT/ALT 25 U/L (12-78); TOT PROT 7.2 g/dl (6.4-8.2)
[2016-08-22 08:34] LABS: ALK PHOS 78 U/L (45-117); TROPONIN I 0.04 ng/ml (0.00-0.05)
[2016-08-22] MEDS ORDERED: FUROSEMIDE 40 MG/4 ML INJECTABLE VIAL IVPUSH ONE (10:17)
[2016-08-22] MEDS ORDERED: AZITHROMYCIN IVPB 500 MG in DEXTROSE 5%-WATER - 250 ML IVPB ONE (10:18)
--- NOTE | 2016-08-22 10:22 | PDOC ---
*Physical Exam - Vital Signs Last Vital Signs Temp Pulse Resp BP Pulse Ox 98.0 F 61 18 166/74 97 08/22/16 07:30 08/22/16 08:06 08/22/16 08:06 08/22/16 07:30 08/22/16 08:06 ED Treatment Course - LABORATORY CBC & Chemistry Diagram: 08/22/16 07:39 08/22/16 07:39 - ADDITIONAL ORDERS Additional order review: Laboratory Results 08/22/16 08/22/16 07:40 07:39 Sodium 139 Potassium 3.8 Chloride 101 Carbon Dioxide 29 Anion Gap 9 BUN 16 Creatinine 1.1 Creat Clearance w eGFR > 60 Random Glucose 108 H D Calcium 8.9 Total Bilirubin 0.5 D AST 19 D ALT 25 Alkaline Phosphatase 78 D Creatine Kinase 90 Troponin I 0.04 D B-Natriuretic Peptide 704.86 H Total Protein 7.2 Albumin 3.8 08/22/16 07:39 RBC 4.24 MCV 84.4 MCHC 34.0 RDW 14.6 MPV 7.5 Neutrophils % 74.6 Lymphocytes % 14.1 D Monocytes % 8.2 Eosinophils % 2.7 Basophils % 0.4 - RADIOLOGY Radiology Studies Ordered: Category Date Time Status CHEST X-RAY PORTABLE* [RAD] Stat Radiology 08/22/16 07:39 Completed - Medications Given in the ED: ED Medications Discontinued Medications Generic Name Dose Route Start Last Admin Trade Name Freq PRN Reason Stop Dose Admin Aspirin 325 mg 08/22/16 07:45 08/22/16 07:48 Asa - PO 08/22/16 07:46 325 mg ONCE ONE Administration *DC/Admit/Observation/Transfer Diagnosis at time of Disposition: Chest heaviness, Shortness of breath, Pleural effusion - Discharge Dispostion Condition at time of disposition: Fair Decision to Admit order Date/Time: Decision to Admit Order Category Date Time Status Decision to Admit to Hospital Routine Admission 08/22/16 09:38 Active - Referrals Referrals: Bari Nolan MD [Primary Care Provider] - - Patient Instructions - Post Discharge Activity
[2016-08-22] MEDS ORDERED: FUROSEMIDE 40 MG/4 ML INJECTABLE VIAL ONE (10:26)
[2016-08-22] MEDS ORDERED: AZITHROMYCIN IVPB 250 ML IVPB ONE (10:26)
[2016-08-22] MEDS ORDERED: CEFTRIAXONE 50 ML ONE (10:26)
[2016-08-22 10:44] LABS: URINE APPEARANCE CLEAR; URINE BILIRUBIN NEGATIVE (NEGATIVE); URINE BLOOD NEGATIVE (NEGATIVE); URINE COLOR LTYELLOW; URINE GLUCOSE (UA) NEGATIVE (NEGATIVE); URINE KETONE NEGATIVE (NEGATIVE); URINE LEUK ESTERASE TRACE (NEGATIVE); URINE NITRITE NEGATIVE (NEGATIVE); URINE PROTEIN NEGATIVE (NEGATIVE); URINE UROBILINOGEN 2.0 E.U/dl E.U./dl (0.2-1.0)
[2016-08-22 10:47] LABS: URINE MUCUS RARE; URINE WBC <1 /hpf (3-5)
[2016-08-22] MEDS ORDERED: traMADol HCL 50 MG TABLET PO ONE (11:08)
[2016-08-22] MEDS ORDERED: traMADol HCL 50 MG TABLET ONE (11:12)
--- NOTE | 2016-08-22 12:21 | HP ---
Admitting History and Physical - Admission History of Present Illness: 61-year-old male history of COPD, hypertension, hyperlipidemia, CAD with 14 stents, CHF, Afib with ablation, on coumadin, effient and asa, sleep apnea, and GERD presents to the ED with sensation of heaviness to chest that started at 4: 30 this morning. States he has shortness of breath at baseline that worsened this a.m. Took his BP at home this am and states BP was 200s/80s. States he sprayed sublingual nitro once this am w/ no relief. Denies any diaphoresis, nausea, vomiting, wheezing, palpitations, leg pain, swelling. States symptoms similar to symptoms prior to previous stent. Of note, patient was admitted to [facility] in May of this year for chest pain and tx for CHF. Plan per cards was to do out-pt stress but that was not done per pt - Past Medical History Cardiovascular: Yes: AFIB, CAD, CHF (chronic diastolic), HTN, Hyperlipdemia, OR , Other (SVT) Pulmonary: Yes: COPD, Sleep Apnea Gastrointestinal: Yes: GERD Psych: Yes: Anxiety Musculoskeletal: Yes: Chronic low back pain - Past Surgical History Past Surgical History: Yes: Stent (Multiple cardiac stents; pulmonary vein ablation Rx x 2 for AF/flutter) - Smoking History Smoking history: Former smoker Have you smoked in the past 12 months: No Aproximately how many cigarettes per day: 0 If you are a former smoker, when did you quit?: 1997 - Alcohol/Substance Use Hx Alcohol Use: No History of Substance Use: reports: None - Social History ADL: Independent History of Recent Travel: No Home Medications - Allergies Allergies/Adverse Reactions: Allergies Allergy/AdvReac Type Severity Reaction Status Date / Time levofloxacin [From Levaquin] Allergy Intermediate Swelling Verified 08/22/16 07: 30 - Home Medications Home Medications: Ambulatory Orders Albuterol Sulfate [Proair Respiclick] 90 mcg IH PRN 08/22/16 Amiodarone HCl 200 mg PO DAILY 08/22/16 Aspirin [ASA -] 81 mg PO DAILY 08/22/16 Diltiazem HCl [Diltiazem ER] 120 mg PO DAILY 08/22/16 Escitalopram Oxalate [Lexapro -] 10 mg PO DAILY 08/22/16 Fenofibric Acid [Fibricor] 105 mg PO DAILY 08/22/16 Furosemide [Lasix] 40 mg PO DAILY 08/22/16 Isosorbide Mononitrate [Isosorbide Mononitrate ER] 120 mg PO DAILY 08/22/16 Levalbuterol HCl 1.25 mg IH TID 08/22/16 Linaclotide [Linzess] 290 mcg PO DAILY 08/22/16 Lisinopril 10 mg PO DAILY 08/22/16 Metoclopramide HCl [Reglan] 10 mg PO PRN 08/22/16 Metoprolol Succinate [Toprol Xl] 100 mg PO DAILY 08/22/16 Nitroglycerin [place] [Nitrolingual [place] -] 1 spray TL PRN 08/22/16 Omeprazole 20 mg PO DAILY 08/22/16 Oxycodone HCl 30 mg PO DAILY 08/22/16 Oxycodone HCl/Acetaminophen [Percocet 10-325 mg Tablet] 1 each PO PRN 08/22/16 Pantoprazole Sodium [Protonix] 40 mg PO DAILY 08/22/16 Prasugrel HCl [Effient] 5 mg PO DAILY 08/22/16 Pravastatin Sodium [Pravachol (Nf)] 80 mg PO HS 08/22/16 Ranitidine HCl [Zantac] 150 mg PO DAILY 08/22/16 Ranolazine [Ranexa] 1,000 mg PO DAILY 08/22/16 Sucralfate [Carafate -] 1 gm PO DAILY 08/22/16 Tamsulosin HCl [Flomax] 0.4 mg PO DAILY 08/22/16 Tiotropium Br/Olodaterol HCl [Stiolto Respimat Inhal [place]] 4 gm IH DAILY Warfarin Na [Coumadin] 3 mg PO DAILY 08/22/16 Review of Systems - Review of Systems Cardiovascular: reports: Shortness of Breath Respiratory: reports: SOB, SOB on Exertion Gastrointestinal: denies: Abdominal Pain Genitourinary: reports: No Symptoms Neurological: denies: Change in LOC, Syncope Physical Examination Vital Signs: Vital Signs Temperature 98.0 F 08/22/16 07:30 Pulse Rate 56 L 08/22/16 11:19 Respiratory Rate 16 08/22/16 11:19 Blood Pressure 157/72 08/22/16 11:19 O2 Sat by Pulse Oximetry (%) 100 08/22/16 11:19 Cardiovascular: Yes: Regular Rate and Rhythm Respiratory: Yes: Rales (AT THE BASES) Gastrointestinal: Yes: Normal Bowel Sounds, Soft. No: Tenderness Edema: LLE: Trace, RLE: Trace Problem List - Problems (1) CHF (congestive heart failure) Assessment/Plan: IV LASIX MONITOR LYTES Code(s): I50.9 - HEART FAILURE, UNSPECIFIED (2) Dyspnea Assessment/Plan: LASIX ABX CT SCAN Code(s): R06.00 - DYSPNEA, UNSPECIFIED Qualifiers: Dyspnea type: orthopnea Qualified Code(s): R06.01 - Orthopnea (3) Moderate aortic stenosis Code(s): I35.0 - NONRHEUMATIC AORTIC (VALVE) STENOSIS (4) CAD (coronary artery disease) Assessment/Plan: FOLLOW CE SAME MEDS Code(s): I25.10 - ATHSCL HEART DISEASE OF [place] CORONARY ARTERY W/O ANG PCTRS (5) History of coronary artery stent placement Assessment/Plan: FOLLOW CE Code(s): Z95.5 - PRESENCE OF CORONARY ANGIOPLASTY IMPLANT AND GRAFT (6) Pneumonia Assessment/Plan: IV ABX CT SCAN Code(s): J18.9 - PNEUMONIA, UNSPECIFIED ORGANISM
[2016-08-22] MEDS ORDERED: morphine CARPU-JECT 4 MG/1 ML DISP.SYRIN IVPUSH ONE (15:41)
[2016-08-22] MEDS ORDERED: morphine CARPU-JECT 2 MG/1 ML DISP.SYRIN ONE (15:43)
[2016-08-22 19:13] LABS: TROPONIN I 0.03 ng/ml (0.00-0.05)
[2016-08-22 20:29] VITALS: BMI 38.3
--- NOTE | 2016-08-22 20:55 | EKG ---
Test Reason : Blood Pressure : / mmHG Vent. Rate : 062 BPM Atrial Rate : 062 BPM P-R Int : 210 ms QRS Dur : 166 ms QT Int : 484 ms P-R-T Axes : 053 -82 035 degrees QTc Int : 491 ms SINUS RHYTHM WITH 1ST DEGREE A-V BLOCK RIGHT BUNDLE BRANCH BLOCK LEFT ANTERIOR FASCICULAR BLOCK BIFASCICULAR BLOCK LATERAL INFARCT (CITED ON OR BEFORE 10-JUL-2016) POSSIBLE INFERIOR INFARCT , AGE UNDETERMINED ABNORMAL ECG WHEN COMPARED WITH ECG OF 10-JUL-2016 21:39, QUESTIONABLE CHANGE IN INITIAL FORCES OF LATERAL LEADS Confirmed by FIDELINA GUADALUPE, WAYNE (2016) on 08/22/2016 8:54:57 PM Referred By: Confirmed By:WAYNE KITCHEN MD
--- NOTE | 2016-08-22 20:56 | CON.CARD ---
Consult Consult Specialty:: cardiology Reason for Consultation:: chest pain; hx CAD with multiple coronary stents. - History of Present Illness Chief Complaint: A&Ox3; presently asymptomatic; daughter and at bedside. History of Present Illness: 61-year-old male with PMhistory of COPD, hypertension, hyperlipidemia, CAD with 14 stents, diastolic CHF (HFpEF: mildly dilated LV; normal LVEF; moderate , mild AR on 02/2016 ECHO), PAG, s/p ablation, on effient and asa, obesity, sleep apnea, and GERD, sedentary lifestyle, presents to the ED with sensation of heaviness to chest that started at 4:30 this morning. States he has shortness of breath at baseline that worsened this a.m. Took his BP at home this am and states BP was 200s/80s mmHg. States he sprayed sublingual nitro once this am w/ no relief. Denies any diaphoresis, nausea, vomiting, wheezing, palpitations, leg pain, swelling. States symptoms similar to symptoms prior to previous stent. Of note, patient was admitted to [facility] in May of this year for chest pain and tx for CHF. Plan per cards was to do out-pt stress but that was not done per pt See exam - History Source History Provided By: Patient, Family Member, Medical Record Limitations to Obtaining History: No Limitations - Past Medical History Cardio/Vascular: Yes: AFIB, Aortic Insufficiency, Aortic Stenosis, CAD, CHF ( chronic diastolic), HTN, Hyperlipdemia, MS, Other (SVT) Pulmonary: Yes: COPD, Sleep Apnea Gastrointestinal: Yes: GERD Psych: Yes: Anxiety, Depression Musculoskeletal: Yes: Chronic low back pain - Past Surgical History Past Surgical History: Yes: Stent (Multiple cardiac stents; pulmonary vein ablation Rx x 2 for AF/flutter) - Alcohol/Substance Use Hx Alcohol Use: No History of Substance Use: reports: None - Smoking History Smoking history: Former smoker Have you smoked in the past 12 months: No Aproximately how many cigarettes per day: 0 If you are a former smoker, when did you quit?: 1997 - Social History Usual Living Arrangement: With Spouse ADL: Independent History of Recent Travel: No Home Medications - Allergies Allergies/Adverse Reactions: Allergies Allergy/AdvReac Type Severity Reaction Status Date / Time levofloxacin [From Levaquin] Allergy Intermediate Swelling Verified 08/22/16 07: 30 - Home Medications Home Medications: Ambulatory Orders Albuterol Sulfate [Proair Respiclick] 90 mcg IH PRN 08/22/16 Amiodarone HCl 200 mg PO DAILY 08/22/16 Aspirin [ASA -] 81 mg PO DAILY 08/22/16 Diltiazem HCl [Diltiazem ER] 120 mg PO DAILY 08/22/16 Escitalopram Oxalate [Lexapro -] 10 mg PO DAILY 08/22/16 Fenofibric Acid [Fibricor] 105 mg PO DAILY 08/22/16 Furosemide [Lasix] 40 mg PO DAILY 08/22/16 Isosorbide Mononitrate [Isosorbide Mononitrate ER] 120 mg PO DAILY 08/22/16 Levalbuterol HCl 1.25 mg IH TID 08/22/16 Linaclotide [Linzess] 290 mcg PO DAILY 08/22/16 Lisinopril 10 mg PO DAILY 08/22/16 Metoclopramide HCl [Reglan] 10 mg PO PRN 08/22/16 Metoprolol Succinate [Toprol Xl] 100 mg PO DAILY 08/22/16 Nitroglycerin [place] [Nitrolingual [place] -] 1 spray TL PRN 08/22/16 Omeprazole 20 mg PO DAILY 08/22/16 Oxycodone HCl 30 mg PO DAILY 08/22/16 Oxycodone HCl/Acetaminophen [Percocet 10-325 mg Tablet] 1 each PO PRN 08/22/16 Pantoprazole Sodium [Protonix] 40 mg PO DAILY 08/22/16 Prasugrel HCl [Effient] 5 mg PO DAILY 08/22/16 Pravastatin Sodium [Pravachol (Nf)] 80 mg PO HS 08/22/16 Ranitidine HCl [Zantac] 150 mg PO DAILY 08/22/16 Ranolazine [Ranexa] 1,000 mg PO DAILY 08/22/16 Sucralfate [Carafate -] 1 gm PO DAILY 08/22/16 Tamsulosin HCl [Flomax] 0.4 mg PO DAILY 08/22/16 Tiotropium Br/Olodaterol HCl [Stiolto Respimat Inhal [place]] 4 gm IH DAILY Warfarin Na [Coumadin] 3 mg PO DAILY 08/22/16 Family Disease History - Family Disease History Family Disease History: Heart Disease: Brother Review of Systems - Review of Systems Constitutional: reports: Malaise Eyes: reports: No Symptoms HENT: reports: No Symptoms Neck: reports: No Symptoms Cardiovascular: reports: Chest Pain Respiratory: reports: Exercise Intolerance, Snoring, SOB on Exertion Gastrointestinal: reports: Indigestion Genitourinary: reports: No Symptoms Breasts: reports: No Symptoms Reported Musculoskeletal: reports: Extremity Pain, Muscle Weakness Integumentary: reports: No Symptoms Neurological: reports: Weakness Endocrine: reports: No Symptoms Hematology/Lymphatic: reports: No Symptoms Psychiatric: reports: Altered Sleep Pattern, Anxiety, Depression - Risk Factors Known Risk Factors: Yes: Age, Gender, Hypercholesterolemia, Hypertension, Physical Inactivity, Smoking (former), Other (diastolic CHF; PAF; CAD with multiple stents) Vital Signs: Vital Signs Temperature 98.6 F 08/22/16 20:07 Pulse Rate 53 L 08/22/16 20:07 Respiratory Rate 20 08/22/16 20:07 Blood Pressure 135/63 08/22/16 20:07 O2 Sat by Pulse Oximetry (%) 96 08/22/16 20:07 Constitutional: Yes: Anxious Eyes: Yes: WNL HENT: Yes: WNL Neck: Yes: WNL Respiratory: Yes: Diminished, Rales Gastrointestinal: Yes: Soft, Abdomen, Obese Heart Sounds: Yes: S1 (split), Split S2, S4 Murmur: Yes: Systolic Murmur, Grade 2 (RSB-->apex) Musculoskeletal: Yes: WNL Extremities: Yes: WNL Edema: No Peripheral Pulses WNL: No Peripheral Pulses: 1+ Left Doralis Pedis, 1+ Right Dorsalis Pedis Integumentary: Yes: WNL Neurological: Yes: Alert, Oriented Psychiatric: Yes: Other - Other Data Labs, Other Data: Troponin, BNP 08/22/16 18:32 Troponin I 0.03 Troponin, BNP 08/22/16 18:32 Troponin I 0.03 Abnormal Lab Results 08/22/16 08/22/16 08/22/16 07:39 07:40 10:23 Random Glucose 108 H D B-Natriuretic Peptide 704.86 H Ur Leukocyte Esterase Trace H Ejection Fraction %: LVEF > or = 40 % Imaging - Results Chest X-ray: Image Reviewed (bibasilar pleural effusions) EKG: Image Reviewed (NSR; 1st degree AVB; RBBB) Problem List - Problems (1) Chest heaviness Assessment/Plan: Serial TNI and EKG. Telemetry monitoring. ASA; on apixaban (PAF). F/u results of most recent (?02/2016) coronary angiogram. Code(s): R07.89 - OTHER CHEST PAIN (2) Pleural effusion Code(s): J90 - PLEURAL EFFUSION, NOT ELSEWHERE CLASSIFIED (3) SOB (shortness of breath) Code(s): R06.02 - SHORTNESS OF BREATH (4) Moderate aortic stenosis Code(s): I35.0 - NONRHEUMATIC AORTIC (VALVE) STENOSIS (5) Obstructive sleep apnea Code(s): G47.33 - OBSTRUCTIVE SLEEP APNEA (ADULT) (PEDIATRIC) (6) CAD (coronary artery disease) Code(s): I25.10 - ATHSCL HEART DISEASE OF [place] CORONARY ARTERY W/O ANG PCTRS (7) COPD (chronic obstructive pulmonary disease) Code(s): J44.9 - CHRONIC OBSTRUCTIVE PULMONARY DISEASE, UNSPECIFIED (8) Chronic abdominal pain Code(s): R10.9 - UNSPECIFIED ABDOMINAL PAIN G89.29 - OTHER CHRONIC PAIN (9) Chronic back pain Code(s): M54.9 - DORSALGIA, UNSPECIFIED G89.29 - OTHER CHRONIC PAIN (10) History of coronary artery stent placement Assessment/Plan: f/u 02/2016 coronary angiogram results. Continue beta blockers. ASA. Keep LDL cholesterol < 70 mg/dL. Code(s): Z95.5 - PRESENCE OF CORONARY ANGIOPLASTY IMPLANT AND GRAFT (11) Hyperlipidemia Code(s): E78.5 - HYPERLIPIDEMIA, UNSPECIFIED (12) Hypertension Code(s): I10 - ESSENTIAL (PRIMARY) HYPERTENSION (13) Acute on chronic diastolic (congestive) heart failure Code(s): I50.33 - ACUTE ON CHRONIC DIASTOLIC (CONGESTIVE) HEART FAILURE (14) Paroxysmal a-fib Assessment/Plan: On beta blockers and diltiazem. Decrease amiodarone to 100 mg daily, and reassess need for it (interaction with diltiazem; multiple additional potential adverse effects, particularly pulmonary , in pt with COPD). Code(s): I48.0 - PAROXYSMAL ATRIAL FIBRILLATION
[2016-08-22] MEDS: ATORVASTATIN CA 20 MG TABLET (FP) PO SCH (21:09)
[2016-08-22] MEDS: RANOLAZINE E.R. 1,000 MG TABLET (FP) PO SCH (21:10)
[2016-08-22] MEDS: oxyCODONE HCL 5 MG TABLET PO SCH (21:10)
[2016-08-22] MEDS: PRASUGREL HCL 5 MG TAB PO SCH (21:11)
[2016-08-22] MEDS ORDERED: ACETAMINOPHEN 325 MG TABLET (FP) PO SCH (22:00)
[2016-08-22] MEDS: LISINOPRIL 10 MG TABLET (FP) PO SCH (22:18)
[2016-08-22] MEDS: ALBUTEROL SO4 2.5/IPRATROPIUM 0.5 INH SOL 3 ML VIAL.NEB. NEB SCH (23:32)
[2016-08-23] MEDS ORDERED: oxyCODONE HCL 5 MG TABLET PO ONE ×2 (04:34→17:30)
[2016-08-23] MEDS: ALBUTEROL SO4 2.5/IPRATROPIUM 0.5 INH SOL 3 ML VIAL.NEB. NEB SCH ×5 (06:05→23:21)
[2016-08-23] MEDS: LEVOTHYROXINE NA 25 MCG TABLET (FP) PO SCH (06:09)
[2016-08-23 08:46] LABS: CHOLESTEROL 152 mg/dL (50-200); LDL CHOLESTEROL (ONLY SJRH) 83 mg/dL (5-100)
--- NOTE | 2016-08-23 08:57 | PN ---
Progress Note, Physician History of Present Illness: FEELS BETTER NO CP C/O THROAT IRRITATION AND HOARSNESS - Current Medication List Current Medications: Active Medications Acetaminophen (Tylenol -) 325 mg PO BID [facility] Last Admin: 08/22/16 21:10 Dose: 325 mg Albuterol/Ipratropium (Duoneb -) 1 amp NEB QIDR [facility] Last Admin: 08/23/16 06:05 Dose: 1 amp Amiodarone HCl (Cordarone -) 100 mg PO DAILY [facility] Aspirin (Asa -) 81 mg PO DAILY [facility] Atorvastatin Calcium (Lipitor -) 40 mg PO HS [facility] Last Admin: 08/22/16 21:09 Dose: 40 mg Diltiazem HCl (Cardizem Cd -) 120 mg PO DAILY [facility] Fenofibric Acid (Trilipix -) 135 mg PO DAILY [facility] Furosemide (Lasix Injection -) 40 mg IVPUSH DAILY [facility] Ceftriaxone Sodium (Rocephin 1gm Ivpb (Pre-Docked)) 50 mls @ 100 mls/hr IVPB DAILY [facility] Levothyroxine Sodium (Synthroid -) 25 mcg PO DAILY@0700 [facility] Last Admin: 08/23/16 06:09 Dose: 25 mcg Lisinopril (Prinivil) 10 mg PO HS [facility] Last Admin: 08/22/16 22:18 Dose: 10 mg Metoprolol Succinate (Toprol Xl -) 100 mg PO DAILY [facility] Oxycodone HCl (Roxicodone -) 10 mg PO BID [facility] Last Admin: 08/22/16 21:10 Dose: 10 mg Pantoprazole Sodium (Protonix -) 40 mg PO DAILY [facility] Prasugrel (Effient -) 5 mg PO [facility] Last Admin: 08/22/16 21:11 Dose: 5 mg Ranolazine (Ranexa -) 1,000 mg PO BID [facility] Last Admin: 08/22/16 21:10 Dose: 1,000 mg - Objective Vital Signs: Vital Signs Temperature 98.6 F 08/23/16 06:00 Pulse Rate 55 L 08/23/16 06:00 Respiratory Rate 20 08/23/16 06:00 Blood Pressure 138/56 08/23/16 06:00 O2 Sat by Pulse Oximetry (%) 96 08/22/16 21:00 Cardiovascular: Yes: Regular Rate and Rhythm Respiratory: Yes: Regular, CTA Bilaterally Gastrointestinal: Yes: Normal Bowel Sounds, Soft Problem List - Problems (1) CHF (congestive heart failure) Assessment/Plan: IV LASIX MONITOR LYTES Code(s): I50.9 - HEART FAILURE, UNSPECIFIED (2) Dyspnea Assessment/Plan: LASIX ABX CT SCAN Code(s): R06.00 - DYSPNEA, UNSPECIFIED Qualifiers: Dyspnea type: orthopnea Qualified Code(s): R06.01 - Orthopnea (3) Moderate aortic stenosis Code(s): I35.0 - NONRHEUMATIC AORTIC (VALVE) STENOSIS (4) CAD (coronary artery disease) Assessment/Plan: FOLLOW CE SAME MEDS Code(s): I25.10 - ATHSCL HEART DISEASE OF [place] CORONARY ARTERY W/O ANG PCTRS (5) History of coronary artery stent placement Assessment/Plan: FOLLOW CE Code(s): Z95.5 - PRESENCE OF CORONARY ANGIOPLASTY IMPLANT AND GRAFT (6) Pneumonia Assessment/Plan: IV ABX CT SCAN PENDING Code(s): J18.9 - PNEUMONIA, UNSPECIFIED ORGANISM
[2016-08-23] MEDS: oxyCODONE HCL 5 MG TABLET PO SCH ×2 (09:15→21:43)
[2016-08-23] MEDS: AMIODARONE HCL 200 MG TABLET (FP) PO SCH (09:19)
[2016-08-23] MEDS: RANOLAZINE E.R. 1,000 MG TABLET (FP) PO SCH ×2 (09:20→21:32)
[2016-08-23] MEDS: FENOFIBRIC ACID 135 MG CAP PO SCH (09:21)
[2016-08-23] MEDS: CEFTRIAXONE 50 ML IVPB SCH (09:21)
[2016-08-23] MEDS: PANTOPRAZOLE 40 MG TABLET (FP) PO SCH (09:21)
[2016-08-23] MEDS: METOPROLOL SUCCINATE 100 MG TAB.SR.24H (FP) PO SCH (09:21)
[2016-08-23] MEDS: FUROSEMIDE 40 MG/4 ML INJECTABLE VIAL IVPUSH SCH (09:21)
[2016-08-23] MEDS ORDERED: ACETAMINOPHEN 325 MG TABLET (FP) PO SCH (10:00)
[2016-08-23] MEDS ORDERED: AMIODARONE HCL 200 MG TABLET (FP) PO SCH (10:00)
[2016-08-23] MEDS ORDERED: FENOFIBRATE NANOCRYSTALLIZED 160 MG PO SCH (10:00)
[2016-08-23] MEDS ORDERED: AMIODARONE HCL 200 MG PO SCH (10:00)
[2016-08-23] MEDS ORDERED: PATIENT'S OWN MEDICATION (NON-FORMULARY) (Diltiazem Hcl [Diltiazem 24hr Er] 120 MG) PO SCH (10:00)
[2016-08-23] MEDS ORDERED: LISINOPRIL 10 MG TABLET (FP) PO SCH (10:00)
[2016-08-23] MEDS: ASPIRIN 81 MG CHEWABLE TABLETS PO SCH (10:02)
--- NOTE | 2016-08-23 12:08 | PN ---
Progress Note, Physician History of Present Illness: 61-year-old male with PMhistory of COPD, hypertension, hyperlipidemia, CAD with 14 stents, diastolic CHF (HFpEF: mildly dilated LV; normal LVEF; moderate , mild AR on 02/2016 ECHO), PAG, s/p ablation, on effient and asa, obesity, sleep apnea, and GERD, sedentary lifestyle, presents to the ED with sensation of heaviness to chest that started at 4:30 this morning. States he has shortness of breath at baseline that worsened this a.m. Took his BP at home this am and states BP was 200s/80s mmHg. States he sprayed sublingual nitro once this am w/ no relief. Denies any diaphoresis, nausea, vomiting, wheezing, palpitations, leg pain, swelling. States symptoms similar to symptoms prior to previous stent. Of note, patient was admitted to [facility] in May of this year for chest pain and tx for CHF. Plan per cards was to do out-pt stress but that was not done per pt - Current Medication List Current Medications: Active Medications Acetaminophen (Tylenol -) 325 mg PO Q6H PRN PRN Reason: FEVER OR PAIN Albuterol/Ipratropium (Duoneb -) 1 amp NEB QIDR [facility] Last Admin: 08/23/16 12:00 Dose: 1 amp Amiodarone HCl (Cordarone -) 100 mg PO DAILY [facility] Last Admin: 08/23/16 09:19 Dose: 100 mg Aspirin (Asa -) 81 mg PO DAILY [facility] Last Admin: 08/23/16 10:02 Dose: 81 mg Atorvastatin Calcium (Lipitor -) 40 mg PO HS [facility] Last Admin: 08/22/16 21:09 Dose: 40 mg Diltiazem HCl (Cardizem Cd -) 120 mg PO DAILY [facility] Last Admin: 08/23/16 09:21 Dose: 120 mg Fenofibric Acid (Trilipix -) 135 mg PO DAILY [facility] Last Admin: 08/23/16 09:21 Dose: 135 mg Furosemide (Lasix Injection -) 40 mg IVPUSH DAILY [facility] Last Admin: 08/23/16 09:21 Dose: 40 mg Ceftriaxone Sodium (Rocephin 1gm Ivpb (Pre-Docked)) 50 mls @ 100 mls/hr IVPB DAILY [facility] Last Admin: 08/23/16 09:21 Dose: 100 mls/hr Levothyroxine Sodium (Synthroid -) 25 mcg PO DAILY@0700 [facility] Last Admin: 08/23/16 06:09 Dose: 25 mcg Lisinopril (Prinivil) 10 mg PO [facility] Last Admin: 08/22/16 22:18 Dose: 10 mg Metoprolol Succinate (Toprol Xl -) 100 mg PO DAILY [facility] Last Admin: 08/23/16 09:21 Dose: 100 mg Montelukast Sodium (Singulair -) 10 mg PO [facility] Oxycodone HCl (Roxicodone -) 10 mg PO BID [facility] Last Admin: 08/23/16 09:15 Dose: 10 mg Pantoprazole Sodium (Protonix -) 40 mg PO DAILY [facility] Last Admin: 08/23/16 09:21 Dose: 40 mg Prasugrel (Effient -) 5 mg PO [facility] Last Admin: 08/22/16 21:11 Dose: 5 mg Ranolazine (Ranexa -) 1,000 mg PO BID [facility] Last Admin: 08/23/16 09:20 Dose: 1,000 mg - Objective Vital Signs: Vital Signs Temperature 98.6 F 08/23/16 06:00 Pulse Rate 89 08/23/16 12:05 Respiratory Rate 20 08/23/16 06:00 Blood Pressure 138/56 08/23/16 06:00 O2 Sat by Pulse Oximetry (%) 97 08/23/16 12:05 Eyes: Yes: WNL, Conjunctiva Clear, EOM Intact HENT: Yes: WNL, Atraumatic, Normocephalic Neck: Yes: WNL, Supple, Trachea Midline Cardiovascular: Yes: Regular Rate and Rhythm, Murmur, S1, S2 Respiratory: Yes: WNL, Regular, CTA Bilaterally Gastrointestinal: Yes: WNL, Normal Bowel Sounds Genitourinary: Yes: WNL Musculoskeletal: Yes: WNL Extremities: Yes: WNL Edema: No Integumentary: Yes: WNL Neurological: Yes: WNL, Alert, Oriented ...Motor Strength: WNL Psychiatric: Yes: WNL Labs: Laboratory Tests 08/22/16 08/22/16 08/22/16 07:39 07:39 07:40 WBC 7.2 RBC 4.24 Hgb 12.2 Hct 35.8 MCV 84.4 MCHC 34.0 RDW 14.6 Plt Count 196 MPV 7.5 Neutrophils % 74.6 Lymphocytes % 14.1 D Monocytes % 8.2 Eosinophils % 2.7 Basophils % 0.4 Sodium 139 Potassium 3.8 Chloride 101 Carbon Dioxide 29 Anion Gap 9 BUN 16 Creatinine 1.1 Creat Clearance w eGFR > 60 Random Glucose 108 H D Calcium 8.9 Total Bilirubin 0.5 D AST 19 D ALT 25 Alkaline Phosphatase 78 D Creatine Kinase 90 Troponin I 0.04 D B-Natriuretic Peptide 704.86 H Total Protein 7.2 Albumin 3.8 Triglycerides Cholesterol Total LDL Cholesterol HDL Cholesterol Urine Color Urine Appearance Urine pH Ur Specific [place] Urine Protein Urine Glucose (UA) Urine Ketones Urine Blood Urine Nitrite Urine Bilirubin Urine Urobilinogen Ur Leukocyte Esterase Urine RBC Urine WBC Urine Mucus 08/22/16 08/22/16 08/23/16 10:23 18:32 05:57 WBC RBC Hgb Hct MCV MCHC RDW Plt Count MPV Neutrophils % Lymphocytes % Monocytes % Eosinophils % Basophils % Sodium Potassium Chloride Carbon Dioxide Anion Gap BUN Creatinine Creat Clearance w eGFR Random Glucose Calcium Total Bilirubin AST ALT Alkaline Phosphatase Creatine Kinase 92 Troponin I 0.03 B-Natriuretic Peptide Total Protein Albumin Triglycerides 134 Cholesterol 152 Total LDL Cholesterol 83 D HDL Cholesterol 51 Urine Color Ltyellow Urine Appearance Clear Urine pH 6.0 Ur Specific [place] 1.015 Urine Protein Negative Urine Glucose (UA) Negative Urine Ketones Negative Urine Blood Negative Urine Nitrite Negative Urine Bilirubin Negative Urine Urobilinogen 2.0 e.u/dl Ur Leukocyte Esterase Trace H Urine RBC None Urine WBC <1 Urine Mucus Rare Assessment/Plan - Problems (1) Chest heaviness Assessment/Plan: most likely due to CHF ASA; on apixaban (PAF). F/u results of most recent (?02/2016) coronary angiogram. Code(s): R07.89 - OTHER CHEST PAIN (2) Pleural effusion Code(s): J90 - PLEURAL EFFUSION, NOT ELSEWHERE CLASSIFIED (3) SOB (shortness of breath) Code(s): R06.02 - SHORTNESS OF BREATH (4) Moderate aortic stenosis Code(s): I35.0 - NONRHEUMATIC AORTIC (VALVE) STENOSIS (5) Obstructive sleep apnea Code(s): G47.33 - OBSTRUCTIVE SLEEP APNEA (ADULT) (PEDIATRIC) (6) CAD (coronary artery disease) Code(s): I25.10 - ATHSCL HEART DISEASE OF [place] CORONARY ARTERY W/O ANG PCTRS (7) COPD (chronic obstructive pulmonary disease) Code(s): J44.9 - CHRONIC OBSTRUCTIVE PULMONARY DISEASE, UNSPECIFIED (8) Chronic abdominal pain Code(s): R10.9 - UNSPECIFIED ABDOMINAL PAIN G89.29 - OTHER CHRONIC PAIN (9) Chronic back pain Code(s): M54.9 - DORSALGIA, UNSPECIFIED G89.29 - OTHER CHRONIC PAIN (10) History of coronary artery stent placement Assessment/Plan: f/u 02/2016 coronary angiogram results. Continue beta blockers. ASA. Keep LDL cholesterol < 70 mg/dL. Code(s): Z95.5 - PRESENCE OF CORONARY ANGIOPLASTY IMPLANT AND GRAFT (11) Hyperlipidemia Code(s): E78.5 - HYPERLIPIDEMIA, UNSPECIFIED (12) Hypertension Code(s): I10 - ESSENTIAL (PRIMARY) HYPERTENSION (13) Acute on chronic diastolic (congestive) heart failure Code(s): I50.33 - ACUTE ON CHRONIC DIASTOLIC (CONGESTIVE) HEART FAILURE (14) Paroxysmal a-fib Assessment/Plan: On beta blockers and diltiazem. Decrease amiodarone to 100 mg daily, and reassess need for it (interaction with diltiazem; multiple additional potential adverse effects, particularly pulmonary , in pt with COPD). Code(s): I48.0 - PAROXYSMAL ATRIAL FIBRILLATION
[2016-08-23] MEDS: ACETAMINOPHEN 325 MG TABLET (FP) PO PRN (15:10)
[2016-08-23] MEDS ORDERED: DOCUSATE SODIUM 100 MG CAPSULE (FP) PO PRN (15:29)
[2016-08-23 16:45] LABS: INR 3.62 (0.82-1.09); PROTHROMBIN TIME (PATIENT) 40.9 SEC (9.98-11.88)
--- NOTE | 2016-08-23 16:55 | CON.ENT ---
Consult Consult Specialty:: OHNS Reason for Consultation:: hoarseness - History of Present Illness Chief Complaint: hoarseness History of Present Illness: 61M with multiple medical comorbidities including COPD, HTN, HL, CAD, CHF, Afib , +coumadin, NOREEN, GERD. Presented to the ER with chest heaviness, admitted and being seen by Cardiology. OHNS consulted for his throat. He notes a chronic history of periodic thick mucous in his throat that he'll try to clear/spit out. Often times there is associated hoarseness and throat discomfort. He has been seen by my colleague at diagnosed with reflux. This is still ongoing. He denies dysphagia/odynophagia , voice change. Mild chronic shortness of breath likely associated with COPD and lung chnages noted on CT Chest. He is a former smoker. He is not coughing. He takes Protonix daily at home for his reflux. He reports having had an EGD within the last few weeks-months for acid problems. Palliating factors include clearing his throat. No clear provoking factors. - History Source History Provided By: Patient Limitations to Obtaining History: No Limitations - Past Medical History Cardio/Vascular: Yes: AFIB, Aortic Insufficiency, Aortic Stenosis, CAD, CHF ( chronic diastolic), HTN, Hyperlipdemia, [place], Other (SVT) Pulmonary: Yes: COPD, Sleep Apnea Gastrointestinal: Yes: GERD Psych: Yes: Anxiety, Depression Musculoskeletal: Yes: Chronic low back pain - Past Surgical History Past Surgical History: Yes: Stent (Multiple cardiac stents; pulmonary vein ablation Rx x 2 for AF/flutter) - Alcohol/Substance Use Hx Alcohol Use: No History of Substance Use: reports: None - Smoking History Smoking history: Former smoker Have you smoked in the past 12 months: No Aproximately how many cigarettes per day: 0 If you are a former smoker, when did you quit?: 1997 - Social History Usual Living Arrangement: With Spouse ADL: Independent History of Recent Travel: No Home Medications - Allergies Allergies/Adverse Reactions: Allergies Allergy/AdvReac Type Severity Reaction Status Date / Time levofloxacin [From Levaquin] Allergy Intermediate Swelling Verified 08/22/16 07: 30 - Home Medications Home Medications: Ambulatory Orders Albuterol Sulfate [Proair Respiclick] 90 mcg IH PRN 08/22/16 Amiodarone HCl 200 mg PO DAILY 08/22/16 Aspirin [ASA -] 81 mg PO DAILY 08/22/16 Diltiazem HCl [Diltiazem ER] 120 mg PO DAILY 08/22/16 Escitalopram Oxalate [Lexapro -] 10 mg PO DAILY 08/22/16 Fenofibric Acid [Fibricor] 105 mg PO DAILY 08/22/16 Furosemide [Lasix] 40 mg PO DAILY 08/22/16 Isosorbide Mononitrate [Isosorbide Mononitrate ER] 120 mg PO DAILY 08/22/16 Levalbuterol HCl 1.25 mg IH TID 08/22/16 Linaclotide [Linzess] 290 mcg PO DAILY 08/22/16 Lisinopril 10 mg PO DAILY 08/22/16 Metoclopramide HCl [Reglan] 10 mg PO PRN 08/22/16 Metoprolol Succinate [Toprol Xl] 100 mg PO DAILY 08/22/16 Nitroglycerin [place] [Nitrolingual [place] -] 1 spray TL PRN 08/22/16 Omeprazole 20 mg PO DAILY 08/22/16 Oxycodone HCl 30 mg PO DAILY 08/22/16 Oxycodone HCl/Acetaminophen [Percocet 10-325 mg Tablet] 1 each PO PRN 08/22/16 Pantoprazole Sodium [Protonix] 40 mg PO DAILY 08/22/16 Prasugrel HCl [Effient] 5 mg PO DAILY 08/22/16 Pravastatin Sodium [Pravachol (Nf)] 80 mg PO HS 08/22/16 Ranitidine HCl [Zantac] 150 mg PO DAILY 08/22/16 Ranolazine [Ranexa] 1,000 mg PO DAILY 08/22/16 Sucralfate [Carafate -] 1 gm PO DAILY 08/22/16 Tamsulosin HCl [Flomax] 0.4 mg PO DAILY 08/22/16 Tiotropium Br/Olodaterol HCl [Stiolto Respimat Inhal Tre[place]or] 4 gm IH DAILY Warfarin Na [Coumadin] 3 mg PO DAILY 08/22/16 Family Disease History - Family Disease History Family Disease History: Heart Disease: Brother Physical Exam-ENT Vital Signs: Vital Signs Temperature 99.3 F 08/23/16 14:00 Pulse Rate 57 L 08/23/16 14:00 Respiratory Rate 20 08/23/16 14:00 Blood Pressure 96/54 08/23/16 14:00 O2 Sat by Pulse Oximetry (%) 97 08/23/16 12:05 Constitutional: Yes: Well Nourished, No Distress, Calm Head: Yes: WNL Face: Yes: WNL Eyes: Yes: WNL Nose: Yes: WNL Oral/Pharynx: Yes: WNL (some caries, adv DDS. TF/BOT soft. Tonsils recessed. Post o/p clear) Outer Ear: Yes: WNL Ear Canal: Yes: Cerumen Neck: Yes: WNL, Supple Respiratory: Yes: WNL Neurological: Yes: Other (CN3-7,11,12 intact) Imaging - Results Cat Scan: Report Reviewed, Image Reviewed (CT up to glottis. no subglottic narrowing seen.) Other: Other (Flexible Fiberoptic Laryngoscopy Explained rbla of procedure. Questions answered. Pt gives his consent. Passed endoscope through nose to supraglottis, withdrawn. Findings: 1. Moderate postcricoid edema. Pyriforms narrow but grossly clear 2. Vocal cords mobile, symmetric. 3. No masses/lesions 4. Unremarkable oropharynx and hypopharynx/larynx otherwise.) Problem List - Problems (1) LPRD (laryngopharyngeal reflux disease) Assessment/Plan: Chronic Continue PPI GI followup - outpatient should be okay as this is not an acute issue. Just recently had EGD - should f/u with his service writer advisor Reflux diet Hydration as able (unless volume restricted) Followup with ENT outpatient in 1 month advised. Medical management per primary team. Thank you for this consultation. Code(s): K21.9 - GASTRO-ESOPHAGEAL REFLUX DISEASE WITHOUT ESOPHAGITIS
[2016-08-23] MEDS ORDERED: PT OWN MED DRAWER 7, Y5N ONE (21:28)
[2016-08-23] MEDS: LISINOPRIL 10 MG TABLET (FP) PO SCH (21:32)
[2016-08-23] MEDS: ATORVASTATIN CA 20 MG TABLET (FP) PO SCH (21:32)
[2016-08-23] MEDS: PRASUGREL HCL 5 MG TAB PO SCH (21:32)
[2016-08-23] MEDS ORDERED: oxyCODONE HCL 5 MG TABLET PO SCH (22:00)
[2016-08-23] MEDS ORDERED: MONTELUKAST NA 10 MG TABLET PO SCH (22:00)
[2016-08-23] MEDS ORDERED: ISOSORBIDE MONONITRATE 30 MG TAB.SR.24H (FP) PO SCH (22:00)
[2016-08-23] MEDS ORDERED: guaiFENesin/D-METHORPHAN HB 10 ML UNIT-DOSE CUPS PO PRN (23:17)
[2016-08-24] MEDS: LEVOTHYROXINE NA 25 MCG TABLET (FP) PO SCH (06:14)
[2016-08-24] MEDS: ALBUTEROL SO4 2.5/IPRATROPIUM 0.5 INH SOL 3 ML VIAL.NEB. NEB SCH ×3 (06:28→18:09)
[2016-08-24 07:41] LABS: INR 2.45 (0.82-1.09); PROTHROMBIN TIME (PATIENT) 27.4 SEC (9.98-11.88)
[2016-08-24 08:25] LABS: ALBUMIN 3.6 g/dl (3.4-5.0); ALK PHOS 70 U/L (45-117); ANION GAP 6 (8-16); BILIRUBIN,TOTAL 0.5 mg/dL (0.2-1.0); CO2 35 mmol/L (21-32); CREATININE 1.1 mg/dL (0.7-1.3); GLUCOSE,RANDOM 90 mg/dL (74-106); SGOT/AST 16 U/L (15-37); SGPT/ALT 23 U/L (12-78); TOT PROT 6.7 g/dl (6.4-8.2)
--- NOTE | 2016-08-24 08:43 | DS ---
Physical Examination Vital Signs: Vital Signs Temperature 98.1 F 08/24/16 06:00 Pulse Rate 53 L 08/24/16 06:00 Respiratory Rate 19 08/24/16 06:00 Blood Pressure 138/61 08/24/16 06:00 O2 Sat by Pulse Oximetry (%) 95 08/24/16 06:00 Findings/Remarks: NO SOB CHRONIC COUGH Cardiovascular: Yes: Regular Rate and Rhythm Respiratory: Yes: Regular, CTA Bilaterally Gastrointestinal: Yes: Normal Bowel Sounds, Soft Discharge Summary Reason For Visit: CHEST HEAVINESS Current Active Problems Acute on chronic diastolic (congestive) heart failure (Acute) CHF (congestive heart failure) (Acute) Chest heaviness (Acute) Chest pain (Acute) LPRD (laryngopharyngeal reflux disease) (Acute) Paroxysmal a-fib (Acute) Pleural effusion (Acute) Pneumonia (Acute) SOB (shortness of breath) (Acute) Hospital Course: 61-year-old male history of COPD, hypertension, hyperlipidemia, CAD with 14 stents, CHF, Afib with ablation, on coumadin, effient and asa, sleep apnea, and GERD presents to the ED with sensation of heaviness to chest that started at 4: 30 this morning. States he has shortness of breath at baseline that worsened this a.m. Took his BP at home this am and states BP was 200s/80s. States he sprayed sublingual nitro once this am w/ no relief. Denies any diaphoresis, nausea, vomiting, wheezing, palpitations, leg pain, swelling. States symptoms similar to symptoms prior to previous stent. Of note, patient was admitted to [facility] in May of this year for chest pain and tx for CHF. Plan per cards was to do out-pt stress but that was not done per pt - Past Medical History Cardiovascular: Yes: AFIB, CAD, CHF (chronic diastolic), HTN, Hyperlipdemia, [place] , Other (SVT) Pulmonary: Yes: COPD, Sleep Apnea Gastrointestinal: Yes: GERD Psych: Yes: Anxiety Musculoskeletal: Yes: Chronic low back pain - Past Surgical History Past Surgical History: Yes: Stent (Multiple cardiac stents; pulmonary vein ablation Rx x 2 for AF/flutter) - Problems (1) CHF (congestive heart failure) Assessment/Plan: IV LASIX--TO PO LASIX MONITOR LYTES Code(s): I50.9 - HEART FAILURE, UNSPECIFIED (2) Dyspnea Assessment/Plan: LASIX ABX CT SCAN-NOTED--ATELECTASIS Code(s): R06.00 - DYSPNEA, UNSPECIFIED Qualifiers: Dyspnea type: orthopnea Qualified Code(s): R06.01 - Orthopnea (3) Moderate aortic stenosis Code(s): I35.0 - NONRHEUMATIC AORTIC (VALVE) STENOSIS (4) CAD (coronary artery disease) Assessment/Plan: FOLLOW CE--NEGATIVE SAME MEDS Code(s): I25.10 - ATHSCL HEART DISEASE OF [place] CORONARY ARTERY W/O ANG PCTRS (5) History of coronary artery stent placement Assessment/Plan: FOLLOW CE--NEG CARDIO ON CASE Code(s): Z95.5 - PRESENCE OF CORONARY ANGIOPLASTY IMPLANT AND GRAFT (6) Pneumonia Assessment/Plan: IV ABX--TO PO CT SCAN --NO EVIDENCE OF PNEUMONIA Code(s): J18.9 - PNEUMONIA, UNSPECIFIED ORGANISM Condition: Improved - Instructions Referrals: Bari Nolan MD [Staff Physician] - 1 Week Disposition: HOME - Home Medications Comprehensive Discharge Medication List: Ambulatory Orders Albuterol Sulfate [Proair Respiclick] 90 mcg IH PRN 08/22/16 Aspirin [ASA -] 81 mg PO DAILY 08/22/16 Diltiazem HCl [Diltiazem 24Hr ER] 120 mg PO DAILY 08/22/16 Escitalopram Oxalate [Lexapro -] 10 mg PO DAILY 08/22/16 Fenofibric Acid [Fibricor] 105 mg PO DAILY 08/22/16 Furosemide [Lasix] 40 mg PO DAILY 08/22/16 Isosorbide Mononitrate [Isosorbide Mononitrate ER] 120 mg PO DAILY 08/22/16 Levalbuterol HCl 1.25 mg IH TID 08/22/16 Linaclotide [Linzess] 290 mcg PO DAILY 08/22/16 Lisinopril 10 mg PO DAILY 08/22/16 Metoclopramide HCl [Reglan] 10 mg PO PRN 08/22/16 Metoprolol Succinate [Toprol Xl] 100 mg PO DAILY 08/22/16 Nitroglycerin [place] [Nitrolingual Vista -] 1 spray TL PRN 08/22/16 Oxycodone HCl 30 mg PO DAILY 08/22/16 Oxycodone HCl/Acetaminophen [Percocet 10-325 mg Tablet] 1 each PO PRN 08/22/16 Pantoprazole Sodium [Protonix] 40 mg PO DAILY 08/22/16 Prasugrel HCl [Effient] 5 mg PO DAILY 08/22/16 Pravastatin Sodium [Pravachol -] 80 mg PO HS 08/22/16 Ranitidine HCl [Zantac] 150 mg PO DAILY 08/22/16 Ranolazine [Ranexa] 1,000 mg PO DAILY 08/22/16 Sucralfate [Carafate -] 1 gm PO DAILY 08/22/16 Tamsulosin HCl [Flomax] 0.4 mg PO DAILY 08/22/16 Tiotropium Br/Olodaterol HCl [Stiolto Respimat Inhal [place]] 4 gm IH DAILY Amiodarone HCl [Cordarone -] 100 mg PO DAILY #30 tablet 08/24/16 Atorvastatin Ca [Lipitor] 40 mg PO HS tablet 08/24/16 Cefuroxime Axetil [Ceftin -] 500 mg PO Q12H #10 tablet 08/24/16 Guaifenesin Dm [Robitussin Dm -] 10 ml PO Q6H PRN #1 bottle 08/24/16 Montelukast Na [Singulair -] 10 mg PO HS #30 tablet 08/24/16
[2016-08-24] MEDS: ACETAMINOPHEN 325 MG TABLET (FP) PO PRN ×2 (09:16→16:12)
[2016-08-24] MEDS: ASPIRIN 81 MG CHEWABLE TABLETS PO SCH (09:17)
[2016-08-24] MEDS: FENOFIBRIC ACID 135 MG CAP PO SCH (09:17)
[2016-08-24] MEDS: RANOLAZINE E.R. 1,000 MG TABLET (FP) PO SCH (09:17)
[2016-08-24] MEDS: CEFTRIAXONE 50 ML IVPB SCH (09:18)
[2016-08-24] MEDS: PANTOPRAZOLE 40 MG TABLET (FP) PO SCH (09:18)
[2016-08-24] MEDS: AMIODARONE HCL 200 MG TABLET (FP) PO SCH (09:18)
[2016-08-24] MEDS: FUROSEMIDE 40 MG/4 ML INJECTABLE VIAL IVPUSH SCH (09:18)
[2016-08-24] MEDS: METOPROLOL SUCCINATE 100 MG TAB.SR.24H (FP) PO SCH (09:18)
[2016-08-24] MEDS ORDERED: ISOSORBIDE MONONITRATE 60 MG TAB.SR.24H (FP) PO SCH (10:00)
[2016-08-24] MEDS ORDERED: oxyCODONE HCL 5 MG TABLET PO SCH ×2 (10:00)
[2016-08-24] MEDS ORDERED: RANITIDINE HCL 150 MG TABLET (FP) PO SCH (10:00)
[2016-08-24 14:42] VITALS: BP 97/46; PULSE 50; TEMP 99.1
--- NOTE | 2016-08-24 15:57 | PN ---
Progress Note, Physician Chief Complaint: Pt ambulating without chest pain or dyspnea. C/o intermittent loss of voice over the past few days (had a similar episode years ago). F/u with ENT. History of Present Illness: 61-year-old male with PMhistory of COPD, hypertension, hyperlipidemia, CAD with 14 stents, diastolic CHF (HFpEF: mildly dilated LV; normal LVEF; moderate , mild AR on 02/2016 ECHO), PAG, s/p ablation, on effient and asa, obesity, sleep apnea, and GERD, sedentary lifestyle, presents to the ED with sensation of heaviness to chest that started at 4:30 this morning. States he has shortness of breath at baseline that worsened this a.m. Took his BP at home this am and states BP was 200s/80s mmHg. States he sprayed sublingual nitro once this am w/ no relief. Denies any diaphoresis, nausea, vomiting, wheezing, palpitations, leg pain, swelling. States symptoms similar to symptoms prior to previous stent. Of note, patient was admitted to [facility] in May of this year for chest pain and tx for CHF. Plan per cards was to do out-pt stress but that was not done per pt See exam - Current Medication List Current Medications: Active Medications Acetaminophen (Tylenol -) 325 mg PO Q6H PRN PRN Reason: FEVER OR PAIN Last Admin: 08/24/16 09:16 Dose: 325 mg Albuterol/Ipratropium (Duoneb -) 1 amp NEB QIDR [facility] Last Admin: 08/24/16 11:05 Dose: 1 amp Amiodarone HCl (Cordarone -) 100 mg PO DAILY [facility] Last Admin: 08/24/16 09:18 Dose: 100 mg Aspirin (Asa -) 81 mg PO DAILY [facility] Last Admin: 08/24/16 09:17 Dose: 81 mg Atorvastatin Calcium (Lipitor -) 40 mg PO HS [facility] Last Admin: 08/23/16 21:32 Dose: 40 mg Diltiazem HCl (Cardizem Cd -) 120 mg PO DAILY [facility] Last Admin: 08/24/16 09:17 Dose: 120 mg Docusate Sodium (Colace -) 100 mg PO BID PRN PRN Reason: CONSTIPATION Last Admin: 08/24/16 09:17 Dose: 100 mg Fenofibric Acid (Trilipix -) 135 mg PO DAILY [facility] Last Admin: 08/24/16 09:17 Dose: 135 mg Furosemide (Lasix Injection -) 40 mg IVPUSH DAILY [facility] Last Admin: 08/24/16 09:18 Dose: 40 mg Guaifenesin (Robitussin Dm -) 10 ml PO Q6H PRN PRN Reason: COUGH Last Admin: 08/23/16 23:30 Dose: 10 ml Ceftriaxone Sodium (Rocephin 1gm Ivpb (Pre-Docked)) 50 mls @ 100 mls/hr IVPB DAILY [facility] Last Admin: 08/24/16 09:18 Dose: 100 mls/hr Isosorbide Mononitrate (Imdur -) 120 mg PO DAILY [facility] Last Admin: 08/24/16 09:17 Dose: 120 mg Levothyroxine Sodium (Synthroid -) 25 mcg PO DAILY@0700 [facility] Last Admin: 08/24/16 06:14 Dose: 25 mcg Lisinopril (Prinivil) 10 mg PO HS [facility] Last Admin: 08/23/16 21:32 Dose: 10 mg Metoprolol Succinate (Toprol Xl -) 100 mg PO DAILY [facility] Last Admin: 08/24/16 09:18 Dose: 100 mg Montelukast Sodium (Singulair -) 10 mg PO HS [facility] Last Admin: 08/23/16 21:32 Dose: 10 mg Oxycodone HCl (Roxicodone -) 30 mg PO HS [facility] Last Admin: 08/23/16 21:32 Dose: 30 mg Oxycodone HCl (Roxicodone -) 10 mg PO QID [facility] Pantoprazole Sodium (Protonix -) 40 mg PO DAILY [facility] Last Admin: 08/24/16 09:18 Dose: 40 mg Prasugrel (Effient -) 5 mg PO HS [facility] Last Admin: 08/23/16 21:32 Dose: 5 mg Ranitidine HCl (Zantac -) 150 mg PO BID [facility] Ranolazine (Ranexa -) 1,000 mg PO BID [facility] Last Admin: 08/24/16 09:17 Dose: 1,000 mg - Objective Vital Signs: Vital Signs Temperature 99.1 F 08/24/16 14:41 Pulse Rate 50 L 08/24/16 14:41 Respiratory Rate 20 08/24/16 14:41 Blood Pressure 97/46 08/24/16 14:41 O2 Sat by Pulse Oximetry (%) 93 L 08/24/16 10:31 Labs: CBC, BMP 08/24/16 07:00 INR, PTT INR 2.45 (0.82-1.09) H D 08/24/16 05:30 Problem List - Problems (1) Chest heaviness Assessment/Plan: TNI 0.04-->0.03. Telemetry monitoring: NSR;sinus bradycardia; no arrhythmias. ASA; on apixaban (PAF). F/u results of most recent (?02/2016) coronary angiogram (discussed with Dr. Coyle), which showed multi-vessel disease that did not require PCI. From a cardiac standpoint, pt may be followes as an outpatient. Code(s): R07.89 - OTHER CHEST PAIN (2) Pleural effusion Code(s): J90 - PLEURAL EFFUSION, NOT ELSEWHERE CLASSIFIED (3) SOB (shortness of breath) Code(s): R06.02 - SHORTNESS OF BREATH (4) Moderate aortic stenosis Code(s): I35.0 - NONRHEUMATIC AORTIC (VALVE) STENOSIS (5) Obstructive sleep apnea Code(s): G47.33 - OBSTRUCTIVE SLEEP APNEA (ADULT) (PEDIATRIC) (6) CAD (coronary artery disease) Code(s): I25.10 - ATHSCL HEART DISEASE OF [place] CORONARY ARTERY W/O ANG PCTRS (7) COPD (chronic obstructive pulmonary disease) Code(s): J44.9 - CHRONIC OBSTRUCTIVE PULMONARY DISEASE, UNSPECIFIED (8) Chronic abdominal pain Code(s): R10.9 - UNSPECIFIED ABDOMINAL PAIN G89.29 - OTHER CHRONIC PAIN (9) Chronic back pain Code(s): M54.9 - DORSALGIA, UNSPECIFIED G89.29 - OTHER CHRONIC PAIN (10) History of coronary artery stent placement Code(s): Z95.5 - PRESENCE OF CORONARY ANGIOPLASTY IMPLANT AND GRAFT (11) Hyperlipidemia Code(s): E78.5 - HYPERLIPIDEMIA, UNSPECIFIED (12) Hypertension Code(s): I10 - ESSENTIAL (PRIMARY) HYPERTENSION (13) Acute on chronic diastolic (congestive) heart failure Code(s): I50.33 - ACUTE ON CHRONIC DIASTOLIC (CONGESTIVE) HEART FAILURE (14) Paroxysmal a-fib Code(s): I48.0 - PAROXYSMAL ATRIAL FIBRILLATION
[2016-08-24] MEDS ORDERED: oxyCODONE HCL 5 MG TABLET PO ONE (16:00)
== END 2016-08-24 18:10 | disposition home or self-care (01) | DRG 292 ==
LOC: JER 07:29 → JERBED 09:38 → J4W 20:03
PROVIDERS: ADMIT Family Medicine; ATTEND Family Medicine
DX: I11.0 Hypertensive heart disease with heart failure (principal); I47.1 Supraventricular tachycardia; R07.89 Other chest pain; I50.33 Acute on chronic diastolic (congestive) heart failure; I48.91 Unspecified atrial fibrillation; I25.2 Old myocardial infarction; K21.9 Gastro-esophageal reflux disease without esophagitis; E78.00 Pure hypercholesterolemia, unspecified; I25.10 Atherosclerotic heart disease of native coronary artery without angina pectoris; G47.30 Sleep apnea, unspecified; J44.9 Chronic obstructive pulmonary disease, unspecified; F41.9 Anxiety disorder, unspecified; M54.5 Low back pain; I35.0 Nonrheumatic aortic (valve) stenosis; E66.9 Obesity, unspecified; Z68.38 Body mass index [BMI] 38.0-38.9, adult; I48.0 Paroxysmal atrial fibrillation; R49.0 Dysphonia; Z95.5 Presence of coronary angioplasty implant and graft; Z79.01 Long term (current) use of anticoagulants; Z87.891 Personal history of nicotine dependence
CPT/HCPCS: 36415; 71010-TC; 71250-TC; 80053; 80061; 81003; 81015; 82550; 83721; 83880; 84484; 85025; 85610; 93005; 93010; 94640; 99283-25

== ENCOUNTER 2017-01-16 09:17 | Emergency (ER) | payer OTHER ==
[2017-01-16 09:28] VITALS: BMI 38.3
[2017-01-16] MEDS ORDERED: PANTOPRAZOLE SODIUM 40 MG in SODIUM CHLORIDE 100 ML IVPB ONE (09:53)
[2017-01-16] MEDS ORDERED: ONDANSETRON 4 MG/2 ML VIAL IVPUSH ONE (09:53)
--- NOTE | 2017-01-16 10:01 | PDOC ---
History of Present Illness - General Chief Complaint: Chest Pain Stated Complaint: CHEST PRESSURE Time Seen by Provider: 01/16/17 09:41 History Source: Patient Exam Limitations: No Limitations - History of Present Illness Travel History: No Initial Comments: 01/16/17 10:19 61 y/o male with history of COPD, A. fib, [place] with stents , COPD, CHF, acid reflux, hypertension and dyslipidemia, sleep apnea and obesity presents with complaints of upper abdominal sharp pain that has been intermittent since awakening this morning. Patient states also associated with nausea without vomiting. Patient also states pain has radiated to his midsternal region. Patient states took a breathing treatment this morning since he states started feeling short of breath and also took a nitroglycerin spray since the pain was mostly to his chest. Patient states no recent change in medication except for amoxicillin recently prescribed by his dentist a few days ago. Patient currently denies shortness of breath, chest pain but now complaining of upper abdominal sharp pain. Timing/Duration: reports: constant Quality: reports: moderate, sharpness Abdominal Pain Onset Location: reports: LUQ, epigastric Pain Radiation: reports: chest Activities at Onset: reports: none Aggravating Factors: improves with: None Alleviating Factors: improves with: Change in Position Past History - Travel Traveled outside of the country in the last 30 days: No - Past Medical History Allergies/Adverse Reactions: Allergies Allergy/AdvReac Type Severity Reaction Status Date / Time levofloxacin [From Levaquin] Allergy Intermediate Swelling Verified 01/16/17 09: 28 Home Medications: Ambulatory Orders Albuterol Sulfate [Proair Respiclick] 90 mcg IH PRN 08/22/16 Aspirin [ASA -] 81 mg PO DAILY 08/22/16 Diltiazem HCl [Diltiazem 24Hr ER] 120 mg PO DAILY 08/22/16 Escitalopram Oxalate [Lexapro -] 10 mg PO DAILY 08/22/16 Fenofibric Acid [Fibricor] 105 mg PO DAILY 08/22/16 Furosemide [Lasix] 40 mg PO DAILY 08/22/16 Isosorbide Mononitrate [Isosorbide Mononitrate ER] 120 mg PO DAILY 08/22/16 Levalbuterol HCl 1.25 mg IH TID 08/22/16 Linaclotide [Linzess] 290 mcg PO DAILY 08/22/16 Lisinopril 10 mg PO DAILY 08/22/16 Metoclopramide HCl [Reglan] 10 mg PO PRN 08/22/16 Metoprolol Succinate [Toprol Xl] 100 mg PO DAILY 08/22/16 Nitroglycerin [place] [Nitrolingual [place] -] 1 spray TL PRN 08/22/16 Oxycodone HCl 30 mg PO PRN PRN 08/22/16 Oxycodone HCl/Acetaminophen [Percocet 10-325 mg Tablet] 1 each PO HS 08/22/16 Pantoprazole Sodium [Protonix] 40 mg PO DAILY 08/22/16 Pravastatin Sodium [Pravachol -] 80 mg PO HS 08/22/16 Ranitidine HCl [Zantac] 150 mg PO DAILY 08/22/16 Ranolazine [Ranexa] 1,000 mg PO DAILY 08/22/16 Sucralfate [Carafate -] 1 gm PO DAILY 08/22/16 Tamsulosin HCl [Flomax] 0.4 mg PO DAILY 08/22/16 Tiotropium Br/Olodaterol HCl [Stiolto Respimat Inhal [place]] 4 gm IH BID Amiodarone HCl [Cordarone -] 100 mg PO DAILY #30 tablet 08/24/16 Guaifenesin Dm [Robitussin Dm -] 10 ml PO Q6H PRN #1 bottle 08/24/16 Warfarin Na [Coumadin] 2.5 mg PO DAILY@1800 #30 tablet 08/24/16 Amoxicillin - [Amoxicillin 500mg Capsule -] 500 mg PO TID 01/16/17 Baclofen 10 mg PO DAILY 01/16/17 Beclomethasone Dipropionate [Qvar] 2 puff IH BID 01/16/17 Mometasone Furoate 17 gm NS PRN PRN 01/16/17 Prasugrel HCl [Effient] 5 mg PO HS 01/16/17 Anemia: No Asthma: No Cancer: No Cardiac Disorders: Yes (A FIB, [place]) CVA: No COPD: Yes CHF: Yes Dementia: No Diabetes: No GI Disorders: Yes (ACID REFLUX) Disorders: No HTN: Yes Hypercholesterolemia: Yes Liver Disease: No Seizures: No Thyroid Disease: No - Surgical History Abdominal Surgery: No Appendectomy: No Cardiac Surgery: Yes (13 stent placements & CARDIAC ABLIATION 01/2014) Cholecystectomy: No Lung Surgery: No Neurologic Surgery: No Orthopedic Surgery: No - Immunization History Immunization Up to Date: Yes - Suicide/Smoking/Psychosocial Hx Smoking Status: No Smoking History: Former smoker Have you smoked in the past 12 months: No Number of Cigarettes Smoked Daily: 0 If you are a former smoker, when did you quit?: 19 YRS Information on smoking cessation initiated: No Hx Alcohol Use: No Drug/Substance Use Hx: No Substance Use Type: None Hx Substance Use Treatment: No Patient Lives Alone: No Lives with/in: spouse/SO Abd/GI Specific PMHX - Complaint Specific PMHX GERD: Yes Review of Systems - Review of Systems Able to Perform ROS?: Yes Constitutional: No: Symptoms Reported HEENTM: No: Symptoms Reported Respiratory: Yes: Cough Cardiac (ROS): Yes: Chest Pain ABD/GI: Yes: Indigestion, Abdominal cramping : No: Symptoms Reported Musculoskeletal: No: Symptoms Reported Integumentary: No: Symptoms Reported *Physical Exam - Vital Signs Last Vital Signs Temp Pulse Resp BP Pulse Ox 98.6 F 77 20 152/86 95 01/16/17 09:20 01/16/17 09:20 01/16/17 09:20 01/16/17 09:20 01/16/17 09:20 - Physical Exam General Appearance: Yes: Nourished, Appropriately Dressed. No: Apparent Distress HEENT: positive: EOMI, BLU. negative: Pale Conjunctivae Neck: positive: Supple Respiratory/Chest: positive: Lungs Clear, Normal Breath Sounds. negative: Respiratory Distress, Accessory Muscle Use Cardiovascular: positive: Regular Rhythm, Regular Rate. negative: Murmur Gastrointestinal/Abdominal: positive: Normal Bowel Sounds, Soft, Distended, Tenderness (epigastric and left upper quadrant) Extremity: positive: Normal Capillary Refill. negative: Pedal Edema Integumentary: positive: Normal Color, Warm, Moist Neurologic: positive: Motor Strength 5/5 (ambulatory) Heart Score/ECG Review - History History: Slightly suspicious - Electrocardiogram EKG: Normal - Age Age: >/= 65 - Risk Factors Risk Factors Heart Score: Yes Hx Hypercholesterolemia, Yes Hx Hypertension Based on the list above the patient has:: 1-2 risk factors - Troponin Troponin: </= normal limit - Score Heart Score - Total: 3 - ECG Intrepretation Rhythm: Regular Rhythm (Rate 75. NSR RBBB. Unchanged from 10/2016) ED Treatment Course - LABORATORY CBC & Chemistry Diagram: 01/16/17 10:04 01/16/17 10:04 - RADIOLOGY Radiology Studies Ordered: Category Date Time Status CHEST X-RAY PORTABLE* [RAD] Stat Radiology 01/16/17 09:52 Ordered Medical Decision Making - Medical Decision Making 01/16/17 10:48 Epigastric left upper quadrant sharp pain radiating out to his midsternal region. Patient also complaining of increased belching. Patient with history of cardiac disease currently on Coumadin. Patient ordered for cardiac workup, chest x-ray, EKG, Zofran, Protonix, urine, and nebulizer 01/16/17 11:54 Laboratory Tests 01/16/17 01/16/17 01/16/17 10:04 10:04 10:04 WBC 9.4 D Hgb 12.3 Hct 37.0 Neutrophils % 83.6 H PT with INR 32.90 H INR 2.91 H Sodium 139 Potassium 3.8 Chloride 103 Carbon Dioxide 29 Anion Gap 7 L BUN 23 H D Creatinine 1.2 Random Glucose 106 AST 14 L ALT 26 Alkaline Phosphatase 38 L D Creatine Kinase 112 Troponin I 0.03 Since 08-22. Chest x-ray shows large heart with congestive changes. There may be an early infiltrate in the right base. Patient denies increased cough, difficulty breathing, or fever. Patient can follow with his primary care physician Dr. Nolan. 01/16/17 12:[address] Nolan aware of patient's arrival and recommended patient follow-up in the office this week. Patient's Protonix will be increased to 40 mg twice a day. Patient states was supposed was switched to Prilosec but insurances not covering and is pending prior authorization from his gastrologist. Patient is currently asymptomatic but had to receive a Percocet for his low back pain which he states is chronic. Laboratory Tests 01/16/17 10:04 Urine Glucose (UA) Negative Urine Ketones Negative Urine Nitrite Negative Ur Leukocyte Esterase Pending 01/16/17 13:04 *DC/Admit/Observation/Transfer Diagnosis at time of Disposition: Epigastric abdominal pain, Nausea - Discharge Dispostion Disposition: HOME Condition at time of disposition: Improved - Referrals Referrals: Bari Nolan MD [Primary Care Provider] - - Patient Instructions Printed Discharge Instructions: DI for Epigastric Pain Additional Instructions: Please take Protonix 40 mg twice a day until you start Prilosec. Please contact your location director and notify him of today's visit. May also try [id number] Mylanta as needed. Return to the ED at any given time if your symptoms worsen despite above recommendations. - Post Discharge Activity
[2017-01-16] MEDS ORDERED: PANTOPRAZOLE SODIUM 40 MG/100 ML BAG IVPB ONE (10:06)
[2017-01-16 10:08] LABS: BASOPHIL 0.5 % (0-2.0); EOSINOPHIL 2.1 % (0-4.5); MCH 27.7 pg (25.7-33.7); MCHC 33.1 g/dl (32.0-35.9); MEAN CELL VOLUME 83.5 fl (80-96); MEAN PLT VOLUME 7.7 fl (7.5-11.1); NEUTROPHILS 83.6 % (42.8-82.8); PLATELET COUNT 194 K/MM3 (134-434); RDW 14.3 % (11.9-15.9); WHITE BLOOD COUNT 9.4 K/mm3 (4.0-10.0)
--- NOTE | 2017-01-16 10:11 | CON.CARD ---
Consult Consult Specialty:: Cardiology - History of Present Illness History of Present Illness: PMH s/p multiple coronary stents s/p PTCA of distal OM1 (12/24/10) s/p pulmonary vein isolation procedures (ablation) x 2 for Atrial Fibrillation Ongoing medical problems Medical history: angina pectoris obstructive sleep apnea Anxiety Atrial fibrillation-->ablation Rx CAD: s/p multiple PCIs; the latest 12/08: patent mid LAD and RPDA prior stents; PTCA of distal OM1; latest angiograms 04/15 and 03/16: non-obstructive CAD Congestive heart failure (diastolic) COPD Hypercholesterolemia Hypertension Moderate aortic regurgitation Obesity s/p pulmonary vein ablation x 2 for PAF, most recently at [facility] (followed by Dr. Fam Pollock) - History Source History Provided By: Patient, Medical Record - Past Medical History Cardio/Vascular: Yes: AFIB, Aortic Insufficiency, Aortic Stenosis, CAD, CHF ( chronic diastolic), HTN, Hyperlipdemia, SD, Other (SVT) Pulmonary: Yes: COPD, Sleep Apnea Gastrointestinal: Yes: GERD Psych: Yes: Anxiety, Depression Musculoskeletal: Yes: Chronic low back pain - Past Surgical History Past Surgical History: Yes: Stent (Multiple cardiac stents; pulmonary vein ablation Rx x 2 for AF/flutter) - Alcohol/Substance Use Hx Alcohol Use: No History of Substance Use: reports: None - Smoking History Smoking history: Former smoker Have you smoked in the past 12 months: No Aproximately how many cigarettes per day: 0 If you are a former smoker, when did you quit?: 19 YRS - Social History Usual Living Arrangement: With Spouse ADL: Independent History of Recent Travel: No Home Medications - Allergies Allergies/Adverse Reactions: Allergies Allergy/AdvReac Type Severity Reaction Status Date / Time levofloxacin [From Levaquin] Allergy Intermediate Swelling Verified 01/16/17 09: 28 - Home Medications Home Medications: Ambulatory Orders Albuterol Sulfate [Proair Respiclick] 90 mcg IH PRN 08/22/16 Aspirin [ASA -] 81 mg PO DAILY 08/22/16 Diltiazem HCl [Diltiazem 24Hr ER] 120 mg PO DAILY 08/22/16 Escitalopram Oxalate [Lexapro -] 10 mg PO DAILY 08/22/16 Fenofibric Acid [Fibricor] 105 mg PO DAILY 08/22/16 Furosemide [Lasix] 40 mg PO DAILY 08/22/16 Isosorbide Mononitrate [Isosorbide Mononitrate ER] 120 mg PO DAILY 08/22/16 Levalbuterol HCl 1.25 mg IH TID 08/22/16 Linaclotide [Linzess] 290 mcg PO DAILY 08/22/16 Lisinopril 10 mg PO DAILY 08/22/16 Metoclopramide HCl [Reglan] 10 mg PO PRN 08/22/16 Metoprolol Succinate [Toprol Xl] 100 mg PO DAILY 08/22/16 Nitroglycerin [place] [Nitrolingual [place] -] 1 spray TL PRN 08/22/16 Oxycodone HCl 30 mg PO PRN PRN 08/22/16 Oxycodone HCl/Acetaminophen [Percocet 10-325 mg Tablet] 1 each PO HS 08/22/16 Pantoprazole Sodium [Protonix] 40 mg PO DAILY 08/22/16 Pravastatin Sodium [Pravachol -] 80 mg PO HS 08/22/16 Ranitidine HCl [Zantac] 150 mg PO DAILY 08/22/16 Ranolazine [Ranexa] 1,000 mg PO DAILY 08/22/16 Sucralfate [Carafate -] 1 gm PO DAILY 08/22/16 Tamsulosin HCl [Flomax] 0.4 mg PO DAILY 08/22/16 Tiotropium Br/Olodaterol HCl [Stiolto Respimat Inhal [place]] 4 gm IH BID Amiodarone HCl [Cordarone -] 100 mg PO DAILY #30 tablet 08/24/16 Guaifenesin Dm [Robitussin Dm -] 10 ml PO Q6H PRN #1 bottle 08/24/16 Warfarin Na [Coumadin] 2.5 mg PO DAILY@1800 #30 tablet 08/24/16 Amoxicillin - [Amoxicillin 500mg Capsule -] 500 mg PO TID 01/16/17 Baclofen 10 mg PO DAILY 01/16/17 Beclomethasone Dipropionate [Qvar] 2 puff IH BID 01/16/17 Mometasone Furoate 17 gm NS PRN PRN 01/16/17 Prasugrel HCl [Effient] 5 mg PO HS 01/16/17 Family Disease History - Family Disease History Family Disease History: Heart Disease: Brother Review of Systems - Review of Systems Constitutional: reports: No Symptoms Eyes: reports: No Symptoms HENT: reports: No Symptoms Neck: reports: No Symptoms Cardiovascular: reports: Chest Pain Gastrointestinal: reports: No Symptoms Genitourinary: reports: No Symptoms Breasts: reports: No Symptoms Reported Musculoskeletal: reports: No Symptoms Integumentary: reports: No Symptoms Neurological: reports: No Symptoms Endocrine: reports: No Symptoms Hematology/Lymphatic: reports: No Symptoms Psychiatric: reports: No Symptoms Vital Signs: Vital Signs Temperature 98.6 F 01/16/17 09:20 Pulse Rate 77 01/16/17 09:20 Respiratory Rate 20 01/16/17 09:20 Blood Pressure 152/86 01/16/17 09:20 O2 Sat by Pulse Oximetry (%) 95 01/16/17 09:20 Constitutional: Yes: Well Nourished, No Distress, Calm Eyes: Yes: WNL, Conjunctiva Clear, EOM Intact HENT: Yes: WNL, Atraumatic, Normocephalic Neck: Yes: WNL, Supple, Trachea Midline Respiratory: Yes: WNL, Regular, CTA Bilaterally Gastrointestinal: Yes: WNL, Normal Bowel Sounds Renal/: Yes: WNL Cardiovascular: Yes: WNL, Regular Rate and Rhythm Musculoskeletal: Yes: WNL Extremities: Yes: WNL Integumentary: Yes: WNL Neurological: Yes: WNL, Alert, Oriented ...Motor Strength: WNL Psychiatric: Yes: WNL, Alert, Oriented - Other Data Labs, Other Data: Laboratory Tests 01/16/17 01/16/17 01/16/17 10:04 10:04 10:04 WBC 9.4 D RBC 4.43 Hgb 12.3 Hct 37.0 MCV 83.5 MCH 27.7 MCHC 33.1 RDW 14.3 Plt Count 194 MPV 7.7 Neutrophils % 83.6 H Lymphocytes % 8.8 D Monocytes % 5.0 Eosinophils % 2.1 Basophils % 0.5 PT with INR 32.90 H INR 2.91 H Sodium Potassium Chloride Carbon Dioxide Anion Gap BUN Creatinine Creat Clearance w eGFR Random Glucose Calcium Total Bilirubin AST ALT Alkaline Phosphatase Creatine Kinase Troponin I Total Protein Albumin Urine Color Ltyellow Urine Appearance Clear Urine pH 5.0 Ur Specific [place] 1.012 Urine Protein Negative Urine Glucose (UA) Negative Urine Ketones Negative Urine Blood Negative Urine Nitrite Negative Urine Bilirubin Negative Urine Urobilinogen Negative Ur Leukocyte Esterase Negative 01/16/17 10:04 WBC RBC Hgb Hct MCV MCH MCHC RDW Plt Count MPV Neutrophils % Lymphocytes % Monocytes % Eosinophils % Basophils % PT with INR INR Sodium 139 Potassium 3.8 Chloride 103 Carbon Dioxide 29 Anion Gap 7 L BUN 23 H D Creatinine 1.2 Creat Clearance w eGFR > 60 Random Glucose 106 Calcium 8.8 Total Bilirubin 0.6 AST 14 L ALT 26 Alkaline Phosphatase 38 L D Creatine Kinase 112 Troponin I 0.03 Total Protein 7.3 Albumin 3.9 Urine Color Urine Appearance Urine pH Ur Specific [place] Urine Protein Urine Glucose (UA) Urine Ketones Urine Blood Urine Nitrite Urine Bilirubin Urine Urobilinogen Ur Leukocyte Esterase Imaging - Results Chest X-ray: Image Reviewed (?CHF) EKG: Image Reviewed (sr bifascicular block) Problem List - Problems (1) TRACY (acute kidney injury) Code(s): N17.9 - ACUTE KIDNEY FAILURE, UNSPECIFIED (2) Acute on chronic diastolic (congestive) heart failure Code(s): I50.33 - ACUTE ON CHRONIC DIASTOLIC (CONGESTIVE) HEART FAILURE (3) CHF (congestive heart failure) Code(s): I50.9 - HEART FAILURE, UNSPECIFIED (4) Chest heaviness Code(s): R07.89 - OTHER CHEST PAIN (5) Chest pain Code(s): R07.9 - CHEST PAIN, UNSPECIFIED Qualifiers: Chest pain type: other chest pain Qualified Code(s): R07.89 - Other chest pain (6) Contusion of rib on right side Code(s): S20.211A - CONTUSION OF RIGHT FRONT WALL OF THORAX, INITIAL ENCOUNTER Qualifiers: Encounter type: initial encounter Qualified Code(s): S20.211A - Contusion of right front wall of thorax, initial encounter (7) Dyspnea Code(s): R06.00 - DYSPNEA, UNSPECIFIED Qualifiers: Dyspnea type: orthopnea Qualified Code(s): R06.01 - Orthopnea (8) Elevated troponin Code(s): R79.89 - OTHER SPECIFIED ABNORMAL FINDINGS OF BLOOD CHEMISTRY (9) Epigastric abdominal pain Code(s): R10.13 - EPIGASTRIC PAIN (10) Epistaxis Code(s): R04.0 - EPISTAXIS (11) Hypotension Code(s): I95.9 - HYPOTENSION, UNSPECIFIED (12) LPRD (laryngopharyngeal reflux disease) Code(s): K21.9 - GASTRO-ESOPHAGEAL REFLUX DISEASE WITHOUT ESOPHAGITIS (13) Moderate aortic stenosis Code(s): I35.0 - NONRHEUMATIC AORTIC (VALVE) STENOSIS (14) Myocardial disease Code(s): I51.5 - MYOCARDIAL DEGENERATION (15) Nausea Code(s): R11.0 - NAUSEA (16) Obstructive sleep apnea Code(s): G47.33 - OBSTRUCTIVE SLEEP APNEA (ADULT) (PEDIATRIC) (17) Paroxysmal a-fib Code(s): I48.0 - PAROXYSMAL ATRIAL FIBRILLATION (18) Pleural effusion Code(s): J90 - PLEURAL EFFUSION, NOT ELSEWHERE CLASSIFIED (19) Pneumonia Code(s): J18.9 - PNEUMONIA, UNSPECIFIED ORGANISM (20) Rib fractures Code(s): S22.39XA - FRACTURE OF ONE RIB, UNSP SIDE, INIT FOR CLOS FX Qualifiers: Encounter type: subsequent encounter Rib fracture type: single rib Fracture type: closed Laterality: right Fracture healing: with routine healing Qualified Code(s): S22.31XD - Fracture of one rib, right side, subsequent encounter for fracture with routine healing (21) SOB (shortness of breath) Code(s): R06.02 - SHORTNESS OF BREATH (22) Atrial fibrillation Code(s): I48.91 - UNSPECIFIED ATRIAL FIBRILLATION (23) CAD (coronary artery disease) Code(s): I25.10 - ATHSCL HEART DISEASE OF [place] CORONARY ARTERY W/O ANG PCTRS (24) COPD (chronic obstructive pulmonary disease) Code(s): J44.9 - CHRONIC OBSTRUCTIVE PULMONARY DISEASE, UNSPECIFIED (25) Chronic abdominal pain Code(s): R10.9 - UNSPECIFIED ABDOMINAL PAIN; G89.29 - OTHER CHRONIC PAIN (26) Chronic back pain Code(s): M54.9 - DORSALGIA, UNSPECIFIED; G89.29 - OTHER CHRONIC PAIN (27) Chronic diastolic heart failure Code(s): I50.32 - CHRONIC DIASTOLIC (CONGESTIVE) HEART FAILURE (28) Constipation Code(s): K59.00 - CONSTIPATION, UNSPECIFIED (29) History of coronary artery stent placement Code(s): Z95.5 - PRESENCE OF CORONARY ANGIOPLASTY IMPLANT AND GRAFT (30) Hyperlipidemia Code(s): E78.5 - HYPERLIPIDEMIA, UNSPECIFIED (31) Hypertension Code(s): I10 - ESSENTIAL (PRIMARY) HYPERTENSION Assessment/Plan angina pectoris obstructive sleep apnea Anxiety Atrial fibrillation-->ablation Rx CAD: s/p multiple PCIs; the latest 12/08: patent mid LAD and RPDA prior stents; PTCA of distal OM1; latest angiograms 04/15 and 03/16: non-obstructive CAD Congestive heart failure (diastolic) COPD Hypercholesterolemia Hypertension Moderate aortic regurgitation Obesity s/p pulmonary vein ablation x 2 for PAF, most recently at [facility] (followed by Dr. Fam Pollock) r/o SD ce x [address] patient refusing to stay wants to go home understands risks of SD
[2017-01-16 10:20] LABS: INR 2.91 (0.82-1.09); PROTHROMBIN TIME (PATIENT) 32.9 SEC (9.98-11.88)
[2017-01-16 10:34] LABS: ALBUMIN 3.9 g/dl (3.4-5.0); ANION GAP 7 (8-16); BILIRUBIN,TOTAL 0.6 mg/dL (0.2-1.0); CALCIUM 8.8 mg/dL (8.5-10.1); CO2 29 mmol/L (21-32); CREATININE 1.2 mg/dL (0.7-1.3); GLUCOSE,RANDOM 106 mg/dL (74-106); SGOT/AST 14 U/L (15-37); SGPT/ALT 26 U/L (12-78); TOT PROT 7.3 g/dl (6.4-8.2)
[2017-01-16 10:36] LABS: ALK PHOS 38 U/L (45-117); CPK 112 IU/L (39-308); TROPONIN I 0.03 ng/ml (0.00-0.05)
[2017-01-16] MEDS ORDERED: ALBUTEROL SO4 2.5/IPRATROPIUM 0.5 INH SOL 3 ML VIAL.NEB. NEB ONE ×2 (10:43→10:56)
[2017-01-16 11:52] LABS: URINE APPEARANCE CLEAR; URINE BILIRUBIN NEGATIVE (NEGATIVE); URINE BLOOD NEGATIVE (NEGATIVE); URINE COLOR LTYELLOW; URINE GLUCOSE (UA) NEGATIVE (NEGATIVE); URINE KETONE NEGATIVE (NEGATIVE); URINE NITRITE NEGATIVE (NEGATIVE); URINE PROTEIN NEGATIVE (NEGATIVE); URINE UROBILINOGEN NEGATIVE mg/dL (0.2-1.0)
[2017-01-16 12:03] VITALS: BP 134/67; PULSE 74; TEMP 98.4
[2017-01-16 14:13] LABS: URINE LEUK ESTERASE Negative (NEGATIVE)
--- NOTE | 2017-01-17 11:43 | EKG ---
Test Reason : Blood Pressure : / mmHG Vent. Rate : 075 BPM Atrial Rate : 075 BPM P-R Int : 206 ms QRS Dur : 174 ms QT Int : 456 ms P-R-T Axes : 072 -84 052 degrees QTc Int : 509 ms NORMAL SINUS RHYTHM RIGHT BUNDLE BRANCH BLOCK LEFT ANTERIOR FASCICULAR BLOCK BIFASCICULAR BLOCK LATERAL INFARCT (CITED ON OR BEFORE 10-JUL-2016) ABNORMAL ECG WHEN COMPARED WITH ECG OF 22-AUG-2016 07:38, NO SIGNIFICANT CHANGE WAS FOUND Confirmed by HECTOR GUADALUPE, SCOTT ([id number]) on 01/17/2017 11:43:16 AM Referred By: Confirmed By:SCOTT YOUNG MD
== END 2017-01-16 13:09 | disposition home or self-care (01) ==
LOC: JER 09:17
PROC: 3E0F7GC Introduction of Other Therapeutic Substance into Respiratory Tract, Via Natural or Artificial Opening (ICD-10-PCS; principal; 2017-01-16)
PROC: 3E033GC Introduction of Other Therapeutic Substance into Peripheral Vein, Percutaneous Approach (ICD-10-PCS; 2017-01-16)
DX: R10.13 Epigastric pain (principal); I25.10 Atherosclerotic heart disease of native coronary artery without angina pectoris; I11.0 Hypertensive heart disease with heart failure; Z95.5 Presence of coronary angioplasty implant and graft; I25.2 Old myocardial infarction; E78.4 Other hyperlipidemia; G47.30 Sleep apnea, unspecified; F51.9 Sleep disorder not due to a substance or known physiological condition, unspecified
CPT/HCPCS: 36415; 71010-TC; 80053; 81003; 82550; 84484; 85025; 85610; 93005; 93010; 99285-25

== ENCOUNTER 2017-03-27 09:16 | Inpatient (IN) | payer OTHER ==
[2017-03-27 09:20] VITALS: BMI 38.3
--- NOTE | 2017-03-27 09:22 | PDOC ---
History of Present Illness - General Chief Complaint: Shortness of Breath Stated Complaint: SOB Time Seen by Provider: 03/27/17 09:22 - History of Present Illness Initial Comments: 61 y/o male with history of COPD (no home O2), A. fib (on Coumadin), CT with ( 14 stents, last one placed 2 years prior), CHF, GERD, HTN, dyslipidemia, sleep apnea, and obesity presenting with SOB and chest pressure for the past 7 hours. States that the pain started at 2:00 AM for which he took a nitro spray which helped relieve the pain. The shortness of breath was concomitant and only slightly responsive to two nebs at home. Admits to some recent dry cough but denies fevers, chills, nausea, vomiting, diarrhea, constipation, urinary symptoms, blood from any orifice, or other sick symptoms. 03/27/17 09:23 Past History - Past Medical History Allergies/Adverse Reactions: Allergies Allergy/AdvReac Type Severity Reaction Status Date / Time levofloxacin [From Levaquin] Allergy Intermediate Swelling Verified 03/27/17 09: 20 Home Medications: Ambulatory Orders Albuterol Sulfate [Proair Respiclick] 90 mcg IH PRN 08/22/16 Aspirin [ASA -] 81 mg PO DAILY 08/22/16 Diltiazem HCl [Diltiazem 24Hr ER] 120 mg PO DAILY 08/22/16 Fenofibric Acid [Fibricor] 105 mg PO DAILY 08/22/16 Furosemide [Lasix] 40 mg PO DAILY 08/22/16 Isosorbide Mononitrate [Isosorbide Mononitrate ER] 120 mg PO DAILY 08/22/16 Levalbuterol HCl 1.25 mg IH TID 08/22/16 Linaclotide [Linzess] 290 mcg PO DAILY 08/22/16 Lisinopril 10 mg PO DAILY 08/22/16 Metoclopramide HCl [Reglan] 10 mg PO PRN 08/22/16 Metoprolol Succinate [Toprol Xl] 100 mg PO DAILY 08/22/16 Nitroglycerin [place] [Nitrolingual [place] -] 1 spray TL PRN 08/22/16 Oxycodone HCl 30 mg PO PRN PRN 08/22/16 Oxycodone HCl/Acetaminophen [Percocet 10-325 mg Tablet] 1 each PO HS 08/22/16 Pravastatin Sodium [Pravachol -] 80 mg PO HS 08/22/16 Ranitidine HCl [Zantac] 150 mg PO DAILY 08/22/16 Ranolazine [Ranexa] 1,000 mg PO BID 08/22/16 Sucralfate [Carafate -] 1 gm PO DAILY 08/22/16 Tamsulosin HCl [Flomax] 0.4 mg PO DAILY 08/22/16 Tiotropium Br/Olodaterol HCl [Stiolto Respimat Inhal [place]] 4 gm IH BID Beclomethasone Dipropionate [Qvar] 2 puff IH BID 01/16/17 Mometasone Furoate 17 gm NS PRN PRN 01/16/17 Prasugrel HCl [Effient] 5 mg PO HS 01/16/17 Amiodarone HCl [Cordarone -] 200 mg PO DAILY 03/27/17 Sertraline HCl 50 mg PO DAILY 03/27/17 Warfarin Na [Coumadin] 3 mg PO DAILY@1800 03/27/17 Anemia: No Asthma: No Cancer: No Cardiac Disorders: Yes (A FIB, CT) CVA: No COPD: Yes CHF: Yes Dementia: No Diabetes: No GI Disorders: Yes (ACID REFLUX) Disorders: No HTN: Yes Hypercholesterolemia: Yes Liver Disease: No Seizures: No Thyroid Disease: No - Surgical History Abdominal Surgery: No Appendectomy: No Cardiac Surgery: Yes (13 stent placements & CARDIAC ABLIATION 01/2014) Cholecystectomy: No Lung Surgery: No Neurologic Surgery: No Orthopedic Surgery: No - Immunization History Immunization Up to Date: Yes - Suicide/Smoking/Psychosocial Hx Smoking Status: No Smoking History: Never smoked Have you smoked in the past 12 months: No Number of Cigarettes Smoked Daily: 0 If you are a former smoker, when did you quit?: 19 YRS Information on smoking cessation initiated: No Hx Alcohol Use: No Drug/Substance Use Hx: No Substance Use Type: None Hx Substance Use Treatment: No Review of Systems - Review of Systems Constitutional: No: Chills, Diaphoresis, Fever, Loss of Appetite HEENTM: No: Blurred Vision Respiratory: Yes: Cough, Shortness of Breath. No: Wheezing, Productive cough, Hemoptysis Cardiac (ROS): Yes: Chest Pain, Irregular Heart Rate, Chest Tightness. No: Syncope ABD/GI: No: Constipated, Diarrhea, Nausea, Vomiting : No: Burning, Dysuria, Discharge Musculoskeletal: No: Back Pain Integumentary: No: Change in Color, Lesions, Lumps Neurological: No: Headache, Numbness, Paresthesia *Physical Exam - Vital Signs Last Vital Signs Temp Pulse Resp BP Pulse Ox 98.1 F 82 24 167/91 82 L 03/27/17 09:17 03/27/17 09:17 03/27/17 09:17 03/27/17 09:17 03/27/17 09:17 - Physical Exam General Appearance: Yes: Nourished, Appropriately Dressed, Apparent Distress, Mild Distress (rspiratory distress) HEENT: positive: EOMI, BLU, Normal Voice. negative: Normal ENT Inspection ( rhinorrhea) Neck: positive: Trachea midline, Normal Thyroid, Supple. negative: Tender, Rigid Respiratory/Chest: positive: Respiratory Distress. negative: Chest Tender, Lungs Clear (appears dyspnic and not moving air well on lung exam), Normal Breath Sounds Cardiovascular: positive: Regular Rhythm, Regular Rate Gastrointestinal/Abdominal: positive: Normal Bowel Sounds, Flat, Soft. negative : Tender Musculoskeletal: positive: Normal Inspection Extremity: positive: Normal Capillary Refill, Normal Inspection, Normal Range of Motion. negative: Tender Integumentary: positive: Normal Color, Dry, Warm Neurologic: positive: Fully Oriented, Alert, Normal Mood/Affect, Normal Response ED Treatment Course - LABORATORY CBC & Chemistry Diagram: 03/27/17 09:46 03/27/17 09:45 Medical Decision Making - Medical Decision Making 61 year old male with a multitude of high risk cardiac pathologies (14 stents, CHF, HTN) and COPD presenting with chest pain and shortness of breath with cough. Likely pathologies include ACS vs. COPD exacerbation (secodnary to PNA vs. viral illness). Less liekyl includes PE, dissection, peneumothorax, esophageal rupture, or MSK pain. Patient took one nitro at home with chest pain relief and two neb treatments at home without relief. Exam was significant for poor air movement with non reproducible pleuritic chest pain. EKG demonstrated NSR LAFB, RBB, and 1st degree heart block. These blocks were apparent on EKGs from 2015. We ran chest pain order st with modification including flu swab, duonebs, and solumedrol 125 IV. Patient's lungs were clear s/p 2 duonebs and chest pain had resolved. Will wait for labs and admit med-surg [facility] for COPD exacerbation and ACS workup 03/27/17 10:03 Labs returned significant for elevated troponin (0.08), INR (4.13), and low K ( 3.3). CXR significant for congestive changes. Ordered KCL 20, KDUR 40, and lasix IV 40. 03/27/17 11:[address] Babin (covering [facility]) regarding patient's overall prognosis and admission. Agreed with admission but believes there is no indication for pacemaker currently as patient's are evaluated for symptoms prior to pacemaker evaluation for his block pattern. 03/27/17 11:[address] Boland, however he does appear to be aware of the patient. Placed order for Caftriaxone and azithromycin for CAP coverage given CXR findings possibly demonstrating infiltrative changes. 03/27/17 11:44 *DC/Admit/Observation/Transfer Diagnosis at time of Disposition: COPD exacerbation, Troponin level elevated CAP (community acquired pneumonia) Qualifiers: Laterality: left Lung location: lower lobe of lung Qualified Code(s): J18.1 - Lobar pneumonia, unspecified organism Chest pain Qualifiers: Chest pain type: other chest pain Qualified Code(s): R07.89 - Other chest pain - Referrals Referrals: Bari Nolan MD [Primary Care Provider] - - Patient Instructions - Post Discharge Activity
[2017-03-27] MEDS ORDERED: ALBUTEROL SO4 2.5/IPRATROPIUM 0.5 INH SOL 3 ML VIAL.NEB. NEB ONE ×2 (09:23→09:50)
[2017-03-27] MEDS ORDERED: ASPIRIN 81 MG CHEWABLE TABLETS PO ONE ×3 (09:40→09:48)
[2017-03-27] MEDS ORDERED: methylPREDNISolone NA SUCC 125 MG/2 ML VIAL IVPUSH ONE (09:42)
[2017-03-27] MEDS: ALBUTEROL SO4 2.5/IPRATROPIUM 0.5 INH SOL 3 ML VIAL.NEB. NEB SCH ×4 (09:42→10:50)
[2017-03-27 09:49] LABS: BASO % 0.5 % (0-2.0); EOS % 2.5 % (0-4.5); HEMATOCRIT 37.9 % (35.4-49); HEMOGLOBIN 12.4 GM/dL (11.7-16.9); LYMPH % 13.1 % (8-40); MCH 27.7 pg (25.7-33.7); MCHC 32.7 g/dl (32.0-35.9); MEAN CELL VOLUME 84.9 fl (80-96); MEAN PLT VOLUME 7.6 fl (7.5-11.1); MONO % 7.2 % (3.8-10.2); NEUT % 76.7 % (42.8-82.8); PLATELET COUNT 178 K/MM3 (134-434); RBC 4.47 M/mm3 (4.00-5.60); RDW 15.2 % (11.9-15.9); WHITE BLOOD COUNT 7.8 K/mm3 (4.0-10.0)
[2017-03-27] MEDS ORDERED: ASPIRIN 81 MG CHEWABLE TABLETS ONE (09:49)
[2017-03-27] MEDS ORDERED: methylPREDNISolone NA SUCC 125 MG/2 ML VIAL ONE (09:49)
--- NOTE | 2017-03-27 10:00 | PDOC ---
Attending Attestation - Resident Resident Name: Mariella Raymond - ED Attending Attestation I have performed the following: I have examined & evaluated the patient, The case was reviewed & discussed with the resident, I agree w/resident's findings & plan, Exceptions are as noted - HPI HPI: 03/27/17 10:00 61 M with COPD, CAD/stents, HTN, HLD, afib on coumadin, presenting to ER with SOB and chest pressure. Pt states this woke him from sleep at around 1 AM. He used a nebulizer treatment at home with minimal improvement. Denies F/C. States that his chest pressure is constant, midsternal. Pt believes he is having a COPD exacerbation. Denies leg swelling. Denies recent travel/immobilization. - Physicial Exam PE: 03/27/17 10:06 "GENERAL: Awake, alert, and fully oriented, in no acute distress HEAD: No signs of trauma EYES: PERRLA, EOMI, sclera anicteric, conjunctiva clear ENT: Auricles normal inspection, hearing grossly normal, nares patent, oropharynx clear without exudates. Moist mucosa NECK: Nontender, no stepoffs, Normal ROM, supple, no lymphadenopathy, JVD, or masses LUNGS: + expiratory wheezes, poor air movement, no rales HEART: Regular rate and rhythm, normal S1 and S2, no murmurs, rubs or gallops ABDOMEN: Soft, nontender, normoactive bowel sounds. No guarding, no rebound. No masses EXTREMITIES: Normal range of motion, no edema. No clubbing or cyanosis. No cords, erythema, or tenderness NEUROLOGICAL: Cranial nerves II through XII intact. 5/5 strength and sensation in all extremities, Normal speech, normal gait SKIN: Warm, Dry, normal turgor, no rashes or lesions noted. " - Medical Decision Making 03/27/17 10:07 61 M with SOB and CP, likely COPD exacerbation. Pt hypoxic in ER with wheezes on exam. No evidence of volume overload on exam. No clinical signs/symptoms of DVT. EKG today is unchanged since prior. 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 Will speak to cardiology about possible PPM placement.
[2017-03-27 10:15] LABS: ALBUMIN 3.8 g/dl (3.4-5.0); ANION GAP 6 (8-16); BILIRUBIN,TOTAL 0.5 mg/dL (0.2-1.0); BLOOD UREA NITROGEN 17 mg/dL (7-18); CALCIUM 8.4 mg/dL (8.5-10.1); CHLORIDE 102 mmol/L (98-107); CHOLESTEROL 144 mg/dL (50-200); CO2 32 mmol/L (21-32); GLUCOSE,RANDOM 123 mg/dL (74-106); LDL CHOLESTEROL (ONLY SJRH) 75 mg/dL (5-100); MAGNESIUM 1.8 mg/dL (1.8-2.4); POTASSIUM 3.3 mmol/L (3.5-5.1); SGOT/AST 14 U/L (15-37); SGPT/ALT 22 U/L (12-78); SODIUM 140 mmol/L (136-145); TOT PROT 6.9 g/dl (6.4-8.2); TRIGLYCERIDES 96 mg/dL (35-160)
[2017-03-27 10:16] LABS: ALK PHOS 37 U/L (45-117); HDL CHOLESTEROL 55 mg/dL (40-60); N-TERMINAL BNP 748.76 pg/ml (5-125)
[2017-03-27 10:24] LABS: PROTHROMBIN TIME (PATIENT) 46.7 SEC (9.98-11.88)
[2017-03-27 10:26] LABS: INR 4.13 (0.82-1.09)
--- NOTE | 2017-03-27 10:29 | HP ---
Admitting History and Physical - Admission History of Present Illness: 61 y/o male with history of COPD (no home O2), A. fib (on Coumadin), DE with ( 14 stents, last one placed 2 years prior), CHF, GERD, HTN, dyslipidemia, sleep apnea, and obesity presenting with SOB and chest pressure for the past 7 hours. States that the pain started at 2:00 AM for which he took a nitro spray which helped relieve the pain. The shortness of breath was concomitant and only slightly responsive to two nebs at home. Admits to some recent dry cough but denies fevers, chills, nausea, vomiting, diarrhea, constipation, urinary symptoms, blood from any orifice, or other sick symptoms. - Past Medical History Cardiovascular: Yes: AFIB, Aortic Insufficiency, Aortic Stenosis, CAD, CHF ( chronic diastolic), HTN, Hyperlipdemia, DE, Other (SVT) Pulmonary: Yes: COPD, Sleep Apnea Gastrointestinal: Yes: GERD Psych: Yes: Anxiety, Depression Musculoskeletal: Yes: Chronic low back pain - Past Surgical History Past Surgical History: Yes: Stent (Multiple cardiac stents; pulmonary vein ablation Rx x 2 for AF/flutter) - Smoking History Smoking history: Never smoked Have you smoked in the past 12 months: No Aproximately how many cigarettes per day: 0 If you are a former smoker, when did you quit?: 19 YRS - Alcohol/Substance Use Hx Alcohol Use: No History of Substance Use: reports: None - Social History ADL: Independent History of Recent Travel: No Home Medications - Allergies Allergies/Adverse Reactions: Allergies Allergy/AdvReac Type Severity Reaction Status Date / Time levofloxacin [From Levaquin] Allergy Intermediate Swelling Verified 03/27/17 09: 20 - Home Medications Home Medications: Ambulatory Orders Albuterol Sulfate [Proair Respiclick] 90 mcg IH PRN 08/22/16 Aspirin [ASA -] 81 mg PO ACDIN 08/22/16 Diltiazem HCl [Diltiazem 24Hr ER] 120 mg PO DAILY 08/22/16 Fenofibric Acid [Fibricor] 105 mg PO DAILY 08/22/16 Furosemide [Lasix] 1.5 tab PO DAILY 08/22/16 Isosorbide Mononitrate [Isosorbide Mononitrate ER] 120 mg PO DAILY 08/22/16 Levalbuterol HCl 1.25 mg IH TID 08/22/16 Linaclotide [Linzess] 290 mcg PO BID 08/22/16 Lisinopril 10 mg PO ACDIN 08/22/16 Metoclopramide HCl [Reglan] 10 mg PO PRN 08/22/16 Metoprolol Succinate [Toprol Xl] 100 mg PO DAILY 08/22/16 Nitroglycerin [place] [Nitrolingual [place] -] 1 spray TL PRN 08/22/16 Oxycodone HCl 30 mg PO HS PRN 08/22/16 Oxycodone HCl/Acetaminophen [Percocet 10-325 mg Tablet] 1 each PO BID PRN Pravastatin Sodium [Pravachol -] 80 mg PO HS 08/22/16 Ranitidine HCl [Zantac] 150 mg PO ACDIN 08/22/16 Ranolazine [Ranexa] 1,000 mg PO BID 08/22/16 Sucralfate [Carafate -] 1 gm PO DAILY PRN 08/22/16 Tamsulosin HCl [Flomax] 0.4 mg PO ACDIN 08/22/16 Tiotropium Br/Olodaterol HCl [Stiolto Respimat Inhal [place]] 2.5 gm IH BID Beclomethasone Dipropionate [Qvar] 2 puff IH BID 01/16/17 Mometasone Furoate 17 gm NS PRN PRN 01/16/17 Prasugrel HCl [Effient] 5 mg PO HS 01/16/17 Amiodarone HCl [Cordarone -] 200 mg PO DAILY 03/27/17 Hyoscyamine Sulfate 0.125 mg PO ASDIR PRN 03/27/17 Omeprazole 20 mg PO DAILY 03/27/17 Sertraline HCl 50 mg PO DAILY 03/27/17 Warfarin Na [Coumadin] 3 mg PO DAILY@1800 03/27/17 Family Disease History - Family Disease History Family Disease History: Heart Disease: Brother Review of Systems - Review of Systems Cardiovascular: reports: Chest Pain, Shortness of Breath Respiratory: reports: Cough, SOB, SOB on Exertion Gastrointestinal: reports: No Symptoms Genitourinary: reports: No Symptoms Physical Examination Vital Signs: Vital Signs Temperature 98.1 F 03/27/17 09:17 Pulse Rate 82 03/27/17 09:17 Respiratory Rate 24 03/27/17 09:17 Blood Pressure 167/91 03/27/17 09:17 O2 Sat by Pulse Oximetry (%) 93 L 03/27/17 10:04 Cardiovascular: Yes: S1, S2 Respiratory: Yes: Diminished, On Nasal O2, Rales Gastrointestinal: Yes: Normal Bowel Sounds, Soft Edema: Yes Neurological: Yes: Alert, Oriented Labs: CBC, BMP 03/27/17 09:46 03/27/17 09:45 Problem List - Problems (1) CAP (community acquired pneumonia) Assessment/Plan: IV ABX ID CONSULT FOLLOW LABS AND CULTURES Code(s): J18.9 - PNEUMONIA, UNSPECIFIED ORGANISM Qualifiers: Laterality: left Lung location: lower lobe of lung Qualified Code(s): J18.1 - Lobar pneumonia, unspecified organism (2) Chest pain Assessment/Plan: FOLLOW CE CARDIO SAME MEDS Code(s): R07.9 - CHEST PAIN, UNSPECIFIED Qualifiers: Chest pain type: other chest pain Qualified Code(s): R07.89 - Other chest pain (3) CHF (congestive heart failure) Assessment/Plan: IV LASIX FOLLOW LYTES AND CXR Code(s): I50.9 - HEART FAILURE, UNSPECIFIED (4) Paroxysmal a-fib Assessment/Plan: CHECK ON AC WITH CARDIOLOGY Code(s): I48.0 - PAROXYSMAL ATRIAL FIBRILLATION (5) Hypertension Code(s): I10 - ESSENTIAL (PRIMARY) HYPERTENSION
[2017-03-27 10:30] LABS: VENOUS PC02 50.1 mmHg (38-52); VENOUS PH 7.39 (7.32-7.42); VENOUS PO2 42.6 mmHg (28-48)
[2017-03-27] MEDS ORDERED: POTASSIUM CHLORIDE TABS 20 MEQ TABLET.ER (FP) PO ONE (11:10)
[2017-03-27] MEDS ORDERED: POTASSIUM CHLORIDE 20 MEQ PREMIX IVPB 100 ML IVPB ONE (11:11)
[2017-03-27] MEDS ORDERED: FUROSEMIDE 40 MG/4 ML INJECTABLE VIAL IVPUSH ONE (11:26)
[2017-03-27] MEDS ORDERED: FUROSEMIDE 40 MG/4 ML INJECTABLE VIAL ONE (11:27)
[2017-03-27] MEDS ORDERED: KCL 10 MEQ IVPB 10 MEQ/100 ML INFUS.BAG IVPB ONE ×2 (11:27→12:57)
[2017-03-27] MEDS ORDERED: POTASSIUM CHLORIDE TABS 10 MEQ TABLET.ER (FP) ONE (11:27)
--- NOTE | 2017-03-27 11:36 | EKG ---
Test Reason : Blood Pressure : / mmHG Vent. Rate : 076 BPM Atrial Rate : 076 BPM P-R Int : 204 ms QRS Dur : 164 ms QT Int : 472 ms P-R-T Axes : 078 -86 049 degrees QTc Int : 531 ms NORMAL SINUS RHYTHM RIGHT BUNDLE BRANCH BLOCK LEFT ANTERIOR FASCICULAR BLOCK BIFASCICULAR BLOCK LATERAL INFARCT (CITED ON OR BEFORE 10-JUL-2016) INFERIOR INFARCT , AGE UNDETERMINED ABNORMAL ECG WHEN COMPARED WITH ECG OF 16-JAN-2017 09:23, NO SIGNIFICANT CHANGE WAS FOUND Confirmed by MD IGNACIO, SEVEN ([id number]) on 03/27/2017 11:36:30 AM Referred By: Confirmed By:SEVEN PIERRE MD
[2017-03-27] MEDS ORDERED: AZITHROMYCIN IVPB 500 MG in DEXTROSE 5%-WATER - 250 ML IVPB ONE (11:43)
[2017-03-27] MEDS ORDERED: CEFTRIAXONE 1 GM in DEXTROSE 5%-WATER - 50 ML IVPB ONE (11:43)
[2017-03-27] MEDS ORDERED: AZITHROMYCIN IVPB 250 ML IVPB ONE (12:12)
[2017-03-27] MEDS ORDERED: CEFTRIAXONE 1 GM/50 ML BAG ONE (12:12)
[2017-03-27 12:30] LABS: URINE APPEARANCE CLEAR; URINE BILIRUBIN NEGATIVE (NEGATIVE); URINE BLOOD NEGATIVE (NEGATIVE); URINE COLOR LTYELLOW; URINE GLUCOSE (UA) NEGATIVE (NEGATIVE); URINE KETONE NEGATIVE (NEGATIVE); URINE LEUK ESTERASE NEGATIVE (NEGATIVE); URINE NITRITE NEGATIVE (NEGATIVE); URINE PROTEIN NEGATIVE (NEGATIVE)
--- NOTE | 2017-03-27 16:12 | CON.ID ---
Consult Consult Specialty:: infectious diseases Referred by:: Reason for Consultation:: pneumonia - History of Present Illness Chief Complaint: sob History of Present Illness: 61 M with COPD, CAD/stents, HTN, HLD, afib on coumadin, admitted with SOB and chest pressure. Pt states this woke him from sleep at around 1 AM. He used a nebulizer treatment at home with minimal improvement. Denies F/C. patient mentions that he tried couple of things including neb did not feel too well and came to the hospital patient has been feeling sick couple of days before .He also had some chest pain. - History Source History Provided By: Patient, Family Member Limitations to Obtaining History: No Limitations - Past Medical History Cardio/Vascular: Yes: AFIB, Aortic Insufficiency, Aortic Stenosis, CAD, CHF ( chronic diastolic), HTN, Hyperlipdemia, [place], Other (SVT) Pulmonary: Yes: COPD, Sleep Apnea Gastrointestinal: Yes: GERD Psych: Yes: Anxiety, Depression Musculoskeletal: Yes: Chronic low back pain - Past Surgical History Past Surgical History: Yes: Stent (Multiple cardiac stents; pulmonary vein ablation Rx x 2 for AF/flutter) - Alcohol/Substance Use Hx Alcohol Use: No History of Substance Use: reports: None - Smoking History Smoking history: Never smoked Have you smoked in the past 12 months: No Aproximately how many cigarettes per day: 0 If you are a former smoker, when did you quit?: 19 YRS - Social History Usual Living Arrangement: With Spouse ADL: Independent History of Recent Travel: No Home Medications - Allergies Allergies/Adverse Reactions: Allergies Allergy/AdvReac Type Severity Reaction Status Date / Time levofloxacin [From Levaquin] Allergy Intermediate Swelling Verified 03/27/17 09: 20 - Home Medications Home Medications: Ambulatory Orders Albuterol Sulfate [Proair Respiclick] 90 mcg IH PRN 08/22/16 Aspirin [ASA -] 81 mg PO ACDIN 08/22/16 Diltiazem HCl [Diltiazem 24Hr ER] 120 mg PO DAILY 08/22/16 Fenofibric Acid [Fibricor] 105 mg PO DAILY 08/22/16 Furosemide [Lasix] 1.5 tab PO DAILY 08/22/16 Isosorbide Mononitrate [Isosorbide Mononitrate ER] 120 mg PO DAILY 08/22/16 Levalbuterol HCl 1.25 mg IH TID 08/22/16 Linaclotide [Linzess] 290 mcg PO BID 08/22/16 Lisinopril 10 mg PO ACDIN 08/22/16 Metoclopramide HCl [Reglan] 10 mg PO PRN 08/22/16 Metoprolol Succinate [Toprol Xl] 100 mg PO DAILY 08/22/16 Nitroglycerin [place] [Nitrolingual [place] -] 1 spray TL PRN 08/22/16 Oxycodone HCl 30 mg PO HS PRN 08/22/16 Oxycodone HCl/Acetaminophen [Percocet 10-325 mg Tablet] 1 each PO BID PRN Pravastatin Sodium [Pravachol -] 80 mg PO HS 08/22/16 Ranitidine HCl [Zantac] 150 mg PO ACDIN 08/22/16 Ranolazine [Ranexa] 1,000 mg PO BID 08/22/16 Sucralfate [Carafate -] 1 gm PO DAILY PRN 08/22/16 Tamsulosin HCl [Flomax] 0.4 mg PO ACDIN 08/22/16 Tiotropium Br/Olodaterol HCl [Stiolto Respimat Inhal [place]] 2.5 gm IH BID Beclomethasone Dipropionate [Qvar] 2 puff IH BID 01/16/17 Mometasone Furoate 17 gm NS PRN PRN 01/16/17 Prasugrel HCl [Effient] 5 mg PO HS 01/16/17 Amiodarone HCl [Cordarone -] 200 mg PO DAILY 03/27/17 Hyoscyamine Sulfate 0.125 mg PO ASDIR PRN 03/27/17 Omeprazole 20 mg PO DAILY 03/27/17 Sertraline HCl 50 mg PO DAILY 03/27/17 Warfarin Na [Coumadin] 3 mg PO DAILY@1800 03/27/17 Family Disease History - Family Disease History Family Disease History: Heart Disease: Brother Review of Systems - Review of Systems Constitutional: reports: No Symptoms Eyes: reports: No Symptoms HENT: reports: No Symptoms Neck: reports: No Symptoms Cardiovascular: reports: No Symptoms Respiratory: reports: No Symptoms Gastrointestinal: reports: No Symptoms Genitourinary: reports: No Symptoms Musculoskeletal: reports: No Symptoms Integumentary: reports: No Symptoms Neurological: reports: No Symptoms Hematology/Lymphatic: reports: No Symptoms Psychiatric: reports: No Symptoms Physical Exam Vital Signs: Vital Signs Temperature 98.4 F 03/27/17 14:10 Pulse Rate 78 03/27/17 14:10 Respiratory Rate 18 03/27/17 14:10 Blood Pressure 157/77 03/27/17 14:10 O2 Sat by Pulse Oximetry (%) 96 03/27/17 13:00 Constitutional: Yes: Well Nourished, Calm, Mild Distress, Obese Eyes: Yes: Conjunctiva Clear Cardiovascular: Yes: Regular Rate and Rhythm, S1 Respiratory: Yes: Regular, On Nasal O2, Poor Air Entry, Rhonchi Gastrointestinal: Yes: Normal Bowel Sounds, Soft Musculoskeletal: Yes: WNL Extremities: Yes: WNL Neurological: Yes: Alert, Oriented Psychiatric: Yes: Alert, Oriented Labs: CBC, BMP 03/27/17 09:46 03/27/17 09:45 Imaging - Results Chest X-ray: Report Reviewed, Image Reviewed Cat Scan: Report Reviewed, Image Reviewed Assessment/Plan Problem List - Problems (1) CAP (community acquired pneumonia) Code(s): J18.9 - PNEUMONIA, UNSPECIFIED ORGANISM Qualifiers: Laterality: left Lung location: lower lobe of lung Qualified Code(s): J18.1 - Lobar pneumonia, unspecified organism (2) COPD exacerbation Code(s): J44.1 - CHRONIC OBSTRUCTIVE PULMONARY DISEASE W (ACUTE) EXACERBATION (3) Chest pain Code(s): R07.9 - CHEST PAIN, UNSPECIFIED Qualifiers: Chest pain type: other chest pain Qualified Code(s): R07.89 - Other chest pain (4) Elevated troponin Code(s): R79.89 - OTHER SPECIFIED ABNORMAL FINDINGS OF BLOOD CHEMISTRY (5) TRACY (acute kidney injury) Code(s): N17.9 - ACUTE KIDNEY FAILURE, UNSPECIFIED (6) Acute on chronic diastolic (congestive) heart failure Code(s): I50.33 - ACUTE ON CHRONIC DIASTOLIC (CONGESTIVE) HEART FAILURE (7) CHF (congestive heart failure) Code(s): I50.9 - HEART FAILURE, UNSPECIFIED (8) Chest heaviness Code(s): R07.89 - OTHER CHEST PAIN (9) Contusion of rib on right side Code(s): S20.211A - CONTUSION OF RIGHT FRONT WALL OF THORAX, INITIAL ENCOUNTER Qualifiers: Encounter type: initial encounter Qualified Code(s): S20.211A - Contusion of right front wall of thorax, initial encounter (10) Dyspnea Code(s): R06.00 - DYSPNEA, UNSPECIFIED Qualifiers: Dyspnea type: orthopnea Qualified Code(s): R06.01 - Orthopnea (11) Epigastric abdominal pain Code(s): R10.13 - EPIGASTRIC PAIN (12) Epistaxis Code(s): R04.0 - EPISTAXIS (13) Hypotension Code(s): I95.9 - HYPOTENSION, UNSPECIFIED (14) LPRD (laryngopharyngeal reflux disease) Code(s): K21.9 - GASTRO-ESOPHAGEAL REFLUX DISEASE WITHOUT ESOPHAGITIS (15) Moderate aortic stenosis Code(s): I35.0 - NONRHEUMATIC AORTIC (VALVE) STENOSIS (16) Myocardial disease Code(s): I51.5 - MYOCARDIAL DEGENERATION (17) Nausea Code(s): R11.0 - NAUSEA (18) Obstructive sleep apnea Code(s): G47.33 - OBSTRUCTIVE SLEEP APNEA (ADULT) (PEDIATRIC) (19) Paroxysmal a-fib Code(s): I48.0 - PAROXYSMAL ATRIAL FIBRILLATION (20) Pleural effusion Code(s): J90 - PLEURAL EFFUSION, NOT ELSEWHERE CLASSIFIED (21) Pneumonia Code(s): J18.9 - PNEUMONIA, UNSPECIFIED ORGANISM (22) Rib fractures Code(s): S22.39XA - FRACTURE OF ONE RIB, UNSP SIDE, INIT FOR CLOS FX Qualifiers: Encounter type: subsequent encounter Rib fracture type: single rib Fracture type: closed Laterality: right Fracture healing: with routine healing Qualified Code(s): S22.31XD - Fracture of one rib, right side, subsequent encounter for fracture with routine healing (23) SOB (shortness of breath) Code(s): R06.02 - SHORTNESS OF BREATH (24) Atrial fibrillation Code(s): I48.91 - UNSPECIFIED ATRIAL FIBRILLATION (25) CAD (coronary artery disease) Code(s): I25.10 - ATHSCL HEART DISEASE OF [place] CORONARY ARTERY W/O ANG PCTRS (26) COPD (chronic obstructive pulmonary disease) Code(s): J44.9 - CHRONIC OBSTRUCTIVE PULMONARY DISEASE, UNSPECIFIED (27) Chronic abdominal pain Code(s): R10.9 - UNSPECIFIED ABDOMINAL PAIN; G89.29 - OTHER CHRONIC PAIN (28) Chronic back pain Code(s): M54.9 - DORSALGIA, UNSPECIFIED; G89.29 - OTHER CHRONIC PAIN (29) Chronic diastolic heart failure Code(s): I50.32 - CHRONIC DIASTOLIC (CONGESTIVE) HEART FAILURE (30) Constipation Code(s): K59.00 - CONSTIPATION, UNSPECIFIED (31) History of coronary artery stent placement Code(s): Z95.5 - PRESENCE OF CORONARY ANGIOPLASTY IMPLANT AND GRAFT (32) Hyperlipidemia Code(s): E78.5 - HYPERLIPIDEMIA, UNSPECIFIED (33) Hypertension Code(s): I10 - ESSENTIAL (PRIMARY) HYPERTENSION plan will start patient on abx await for all cx reports will see how patinet does if he does not improve will broaden the coverage
[2017-03-27] MEDS ORDERED: oxyCODONE HCL 5 MG TABLET PO PRN (16:44)
[2017-03-27] MEDS: ACETAMINOPHEN 325 MG TABLET (FP) PO PRN (17:07)
[2017-03-27] MEDS: oxyCODONE HCL 5 MG TABLET PO PRN (17:07)
[2017-03-27] MEDS: PIPERACILLIN/TAZOB 3.375 GM 3.375 GM in DEXTROSE 5%-WATER - 100 ML IVPB SCH (18:55)
[2017-03-27] MEDS: ALBUTEROL SO4 0.083% IH SOL 2.5 MG/3 ML VIAL.NEB. NEB PRN (20:30)
[2017-03-27] MEDS: methylPREDNISolone NA SUCC 40 MG/1 ML VIAL IVPUSH SCH (22:04)
[2017-03-27] MEDS: ATORVASTATIN CA 20 MG TABLET (FP) PO SCH (22:04)
[2017-03-27] MEDS: PRASUGREL HCL 5 MG TAB PO SCH (22:04)
[2017-03-27] MEDS: RANOLAZINE E.R. 1,000 MG TABLET (FP) PO SCH (22:04)
[2017-03-28] MEDS: PIPERACILLIN/TAZOB 3.375 GM 3.375 GM in DEXTROSE 5%-WATER - 100 ML IVPB SCH ×3 (01:15→17:48)
[2017-03-28] MEDS: methylPREDNISolone NA SUCC 40 MG/1 ML VIAL IVPUSH SCH ×4 (03:13→21:09)
[2017-03-28] MEDS: FUROSEMIDE 40 MG/4 ML INJECTABLE VIAL IVPUSH SCH ×2 (05:59→15:53)
[2017-03-28] MEDS: ACETAMINOPHEN 325 MG TABLET (FP) PO PRN ×2 (06:14→15:53)
[2017-03-28] MEDS: oxyCODONE HCL 5 MG TABLET PO PRN ×3 (06:14→21:55)
[2017-03-28 07:01] LABS: HEMOGLOBIN 11.7 GM/dL (11.7-16.9); MCHC 33.4 g/dl (32.0-35.9); MEAN CELL VOLUME 83.8 fl (80-96); MEAN PLT VOLUME 7.9 fl (7.5-11.1); PLATELET COUNT 213 K/MM3 (134-434); RBC 4.18 M/mm3 (4.00-5.60); RDW 15.2 % (11.9-15.9); WHITE BLOOD COUNT 9.6 K/mm3 (4.0-10.0)
[2017-03-28 07:25] LABS: ALBUMIN 3.5 g/dl (3.4-5.0); ANION GAP 9 (8-16); BLOOD UREA NITROGEN 19 mg/dL (7-18); CALCIUM 8.5 mg/dL (8.5-10.1); CHLORIDE 101 mmol/L (98-107); CO2 29 mmol/L (21-32); GLUCOSE,RANDOM 134 mg/dL (74-106); POTASSIUM 3.5 mmol/L (3.5-5.1); SODIUM 139 mmol/L (136-145)
[2017-03-28 07:32] LABS: ALK PHOS 32 U/L (45-117); BILIRUBIN,TOTAL 0.6 mg/dL (0.2-1.0); CHOLESTEROL 154 mg/dL (50-200); HDL CHOLESTEROL 70 mg/dL (40-60); LDL CHOLESTEROL (ONLY SJRH) 68 mg/dL (5-100); N-TERMINAL BNP 1912.88 pg/ml (5-125); SGOT/AST 12 U/L (15-37); SGPT/ALT 20 U/L (12-78); TOT PROT 6.9 g/dl (6.4-8.2); TRIGLYCERIDES 71 mg/dL (35-160)
--- NOTE | 2017-03-28 08:44 | PN ---
Progress Note, Physician - Current Medication List Current Medications: Active Medications Acetaminophen (Tylenol -) 650 mg PO Q4H PRN PRN Reason: PAIN LEVEL 6-10 Stop: 03/30/17 16:47 Last Admin: 03/28/17 06:14 Dose: 650 mg Albuterol Sulfate (Ventolin 0.083% Nebulizer Soln -) 1 amp NEB RQID PRN PRN Reason: SHORT OF BREATH/WHEEZING Last Admin: 03/27/17 20:30 Dose: 1 amp Amiodarone HCl (Cordarone -) 200 mg PO DAILY [facility] Aspirin (Asa -) 81 mg PO DAILY [facility] Atorvastatin Calcium (Lipitor -) 20 mg PO HS RENY Last Admin: 03/27/17 22:04 Dose: 20 mg Benzocaine/Menthol (Cepacol Lozenge -) 1 each MM QID [facility] Diltiazem HCl (Cardizem Cd -) 120 mg PO DAILY [facility] Fluticasone Propionate (Flonase -) 1 spray NS BID [facility] Furosemide (Lasix Injection -) 40 mg IVPUSH BIDLASIX RENY Last Admin: 03/28/17 05:59 Dose: 40 mg Piperacillin Sod/Tazobactam (Sod 3.375 gm/ Dextrose) 100 mls @ 200 mls/hr IVPB Q8H-IV RENY PRN Reason: Protocol Last Admin: 03/28/17 01:15 Dose: 200 mls/hr Isosorbide Mononitrate (Imdur -) 120 mg PO DAILY [facility] Lisinopril (Prinivil) 10 mg PO HS [facility] Methylprednisolone Sodium Succinate (Solu-Medrol -) 40 mg IVPUSH Q6H-IV [facility]ENY Last Admin: 03/28/17 03:13 Dose: 40 mg Metoprolol Succinate (Toprol Xl -) 100 mg PO DAILY [facility] Non-Formulary Medication (Fenofibric Acid [Fibricor]) 105 mg PO DAILY [facility] Oxycodone HCl (Roxicodone -) 30 mg PO HS PRN PRN Reason: PAIN LEVEL 1-5 Last Admin: 03/27/17 22:13 Dose: 30 mg Oxycodone HCl (Roxicodone -) 10 mg PO Q12H PRN PRN Reason: PAIN LEVEL 6-10 Last Admin: 03/28/17 06:14 Dose: 10 mg Pantoprazole Sodium (Protonix -) 20 mg PO DAILY [facility] Prasugrel (Effient -) 5 mg PO [facility] Last Admin: 03/27/17 22:04 Dose: 5 mg Ranitidine HCl (Zantac -) 150 mg PO DAILY [facility] Ranolazine (Ranexa -) 1,000 mg PO BID [facility] Last Admin: 03/27/17 22:04 Dose: 1,000 mg Sertraline HCl (Zoloft -) 50 mg PO DAILY [facility] Tamsulosin HCl (Flomax -) 0.4 mg PO DAILY@0830 [facility] - Objective Vital Signs: Vital Signs Temperature 97.6 F 03/28/17 05:00 Pulse Rate 75 03/28/17 05:00 Respiratory Rate 20 03/28/17 05:00 Blood Pressure 141/66 03/28/17 05:00 O2 Sat by Pulse Oximetry (%) 97 03/28/17 05:22 Cardiovascular: Yes: S1, S2 Respiratory: Yes: Rales (at the bases improved) Gastrointestinal: Yes: Normal Bowel Sounds, Soft Labs: CBC, BMP 03/28/17 06:35 03/28/17 06:35 INR, PTT INR 4.13 (0.82-1.09) H* D 03/27/17 09:45 Problem List - Problems (1) CAP (community acquired pneumonia) Assessment/Plan: IV ABX ID CONSULT FOLLOW LABS AND CULTURES Code(s): J18.9 - PNEUMONIA, UNSPECIFIED ORGANISM Qualifiers: Laterality: left Lung location: lower lobe of lung Qualified Code(s): J18.1 - Lobar pneumonia, unspecified organism (2) Chest pain Assessment/Plan: FOLLOW CE CARDIO SAME MEDS Code(s): R07.9 - CHEST PAIN, UNSPECIFIED Qualifiers: Chest pain type: other chest pain Qualified Code(s): R07.89 - Other chest pain (3) CHF (congestive heart failure) Assessment/Plan: IV LASIX FOLLOW LYTES AND CXR Code(s): I50.9 - HEART FAILURE, UNSPECIFIED (4) Paroxysmal a-fib Assessment/Plan: inr 4--todays pending Code(s): I48.0 - PAROXYSMAL ATRIAL FIBRILLATION (5) Hypertension Assessment/Plan: controlled monitor Code(s): I10 - ESSENTIAL (PRIMARY) HYPERTENSION
[2017-03-28 09:58] LABS: INR 2.77 (0.82-1.09); PROTHROMBIN TIME (PATIENT) 31.3 SEC (9.98-11.88)
[2017-03-28] MEDS: TAMSULOSIN HCL 0.4 MG CAP.ER.24H (FP) PO SCH (11:20)
[2017-03-28] MEDS: RANITIDINE HCL 150 MG TABLET (FP) PO SCH (11:22)
[2017-03-28] MEDS: AMIODARONE HCL 200 MG TABLET (FP) PO SCH (11:22)
[2017-03-28] MEDS: SERTRALINE HCL 50 MG TABLET (FP) PO SCH (11:23)
[2017-03-28] MEDS: ASPIRIN 81 MG CHEWABLE TABLETS PO SCH (11:23)
[2017-03-28] MEDS: PANTOPRAZOLE 20 MG TABLET (FP) PO SCH (11:23)
[2017-03-28] MEDS: ISOSORBIDE MONONITRATE 60 MG TAB.SR.24H (FP) PO SCH (11:24)
[2017-03-28] MEDS: METOPROLOL SUCCINATE 100 MG TAB.SR.24H (FP) PO SCH ×2 (11:24→15:53)
[2017-03-28] MEDS: RANOLAZINE E.R. 1,000 MG TABLET (FP) PO SCH ×2 (11:24→21:09)
[2017-03-28] MEDS: FLUTICASONE PROP 0.05% 16 GM NASAL SPRAY NS SCH ×2 (11:24→21:10)
[2017-03-28] MEDS: BENZOCAINE/MENTH/CETYLPYRD CL 1 EACH LOZENGE MM SCH ×4 (11:25→21:56)
--- NOTE | 2017-03-28 11:57 | CON.CARD ---
Consult - History of Present Illness History of Present Illness: 61 M with COPD, CAD/stents, HTN, HLD, afib on coumadin, presenting to ER with SOB and chest pressure. Pt states this woke him from sleep at around 1 AM. He used a nebulizer treatment at home with minimal improvement. Denies F/C. States that his chest pressure is constant, midsternal. Pt believes he is having a COPD exacerbation. Denies leg swelling. Denies recent travel/immobilization. PMH angina pectoris obstructive sleep apnea Anxiety Atrial fibrillation-->ablation Rx CAD: s/p multiple PCIs; the latest 12/08: patent mid LAD and RPDA prior stents; PTCA of distal OM1; latest angiograms 04/15 and 03/16: non-obstructive CAD Congestive heart failure (diastolic) COPD Hypercholesterolemia Hypertension Moderate aortic regurgitation Obesity s/p pulmonary vein ablation x 2 for PAF, most recently at [facility] (followed by Dr. Fam Pollock) - History Source History Provided By: Patient, Medical Record - Past Medical History Cardio/Vascular: Yes: AFIB, Aortic Insufficiency, Aortic Stenosis, CAD, CHF ( chronic diastolic), HTN, Hyperlipdemia, [place], Other (SVT) Pulmonary: Yes: COPD, Sleep Apnea Gastrointestinal: Yes: GERD Psych: Yes: Anxiety, Depression Musculoskeletal: Yes: Chronic low back pain - Past Surgical History Past Surgical History: Yes: Stent (Multiple cardiac stents; pulmonary vein ablation Rx x 2 for AF/flutter) - Alcohol/Substance Use Hx Alcohol Use: No History of Substance Use: reports: None - Smoking History Smoking history: Never smoked Have you smoked in the past 12 months: No Aproximately how many cigarettes per day: 0 If you are a former smoker, when did you quit?: 19 YRS - Social History Usual Living Arrangement: With Spouse ADL: Independent History of Recent Travel: No Home Medications - Allergies Allergies/Adverse Reactions: Allergies Allergy/AdvReac Type Severity Reaction Status Date / Time levofloxacin [From Levaquin] Allergy Intermediate Swelling Verified 03/27/17 09: 20 - Home Medications Home Medications: Ambulatory Orders Albuterol Sulfate [Proair Respiclick] 90 mcg IH PRN 08/22/16 Aspirin [ASA -] 81 mg PO ACDIN 08/22/16 Diltiazem HCl [Diltiazem 24Hr ER] 120 mg PO DAILY 08/22/16 Fenofibric Acid [Fibricor] 105 mg PO DAILY 08/22/16 Furosemide [Lasix] 1.5 tab PO DAILY 08/22/16 Isosorbide Mononitrate [Isosorbide Mononitrate ER] 120 mg PO DAILY 08/22/16 Levalbuterol HCl 1.25 mg IH TID 08/22/16 Linaclotide [Linzess] 290 mcg PO BID 08/22/16 Lisinopril 10 mg PO ACDIN 08/22/16 Metoclopramide HCl [Reglan] 10 mg PO PRN 08/22/16 Metoprolol Succinate [Toprol Xl] 100 mg PO DAILY 08/22/16 Nitroglycerin [place] [Nitrolingual [place] -] 1 spray TL PRN 08/22/16 Oxycodone HCl 30 mg PO HS PRN 08/22/16 Oxycodone HCl/Acetaminophen [Percocet 10-325 mg Tablet] 1 each PO BID PRN Pravastatin Sodium [Pravachol -] 80 mg PO HS 08/22/16 Ranitidine HCl [Zantac] 150 mg PO ACDIN 08/22/16 Ranolazine [Ranexa] 1,000 mg PO BID 08/22/16 Sucralfate [Carafate -] 1 gm PO DAILY PRN 08/22/16 Tamsulosin HCl [Flomax] 0.4 mg PO ACDIN 08/22/16 Tiotropium Br/Olodaterol HCl [Stiolto Respimat Inhal [place]] 2.5 gm IH BID Beclomethasone Dipropionate [Qvar] 2 puff IH BID 01/16/17 Mometasone Furoate 17 gm NS PRN PRN 01/16/17 Prasugrel HCl [Effient] 5 mg PO HS 01/16/17 Amiodarone HCl [Cordarone -] 200 mg PO DAILY 03/27/17 Hyoscyamine Sulfate 0.125 mg PO ASDIR PRN 03/27/17 Omeprazole 20 mg PO DAILY 03/27/17 Sertraline HCl 50 mg PO DAILY 03/27/17 Warfarin Na [Coumadin] 3 mg PO DAILY@1800 03/27/17 Family Disease History - Family Disease History Family Disease History: Heart Disease: Brother Review of Systems - Review of Systems Constitutional: reports: No Symptoms Eyes: reports: No Symptoms HENT: reports: No Symptoms Neck: reports: No Symptoms Cardiovascular: reports: Chest Pain, Shortness of Breath Gastrointestinal: reports: No Symptoms Genitourinary: reports: No Symptoms Breasts: reports: No Symptoms Reported Musculoskeletal: reports: No Symptoms Integumentary: reports: No Symptoms Neurological: reports: No Symptoms Endocrine: reports: No Symptoms Hematology/Lymphatic: reports: No Symptoms Psychiatric: reports: No Symptoms Vital Signs: Vital Signs Temperature 97.6 F 03/28/17 05:00 Pulse Rate 75 03/28/17 05:00 Respiratory Rate 20 03/28/17 05:00 Blood Pressure 141/66 03/28/17 05:00 O2 Sat by Pulse Oximetry (%) 97 03/28/17 05:22 Constitutional: Yes: Well Nourished, No Distress, Calm Eyes: Yes: WNL, Conjunctiva Clear, EOM Intact HENT: Yes: WNL, Atraumatic, Normocephalic Neck: Yes: WNL, Supple, Trachea Midline Respiratory: Yes: WNL, Regular, CTA Bilaterally Gastrointestinal: Yes: WNL, Normal Bowel Sounds Renal/: Yes: WNL Cardiovascular: Yes: WNL, Regular Rate and Rhythm Musculoskeletal: Yes: WNL Extremities: Yes: WNL Integumentary: Yes: WNL Neurological: Yes: WNL, Alert, Oriented ...Motor Strength: WNL Psychiatric: Yes: WNL, Alert, Oriented - Other Data Labs, Other Data: CBC, BMP 03/28/17 06:35 03/28/17 06:35 INR, PTT INR 2.77 (0.82-1.09) H D 03/28/17 09:29 Troponin, BNP 03/27/17 03/28/17 03/28/17 17:15 06:35 06:35 Troponin I 0.10 H 0.07 H D B-Natriuretic Peptide 1912.88 H Cancelled 03/28/17 08:20 Troponin I Cancelled B-Natriuretic Peptide Troponin, BNP 03/27/17 03/28/17 03/28/17 17:15 06:35 06:35 Troponin I 0.10 H 0.07 H D B-Natriuretic Peptide 1912.88 H Cancelled 03/28/17 08:20 Troponin I Cancelled B-Natriuretic Peptide Imaging - Results Chest X-ray: Image Reviewed (cm chf) EKG: Image Reviewed (SR, bifascicular block old lat AK/IW AK) Problem List - Problems (1) CAP (community acquired pneumonia) Code(s): J18.9 - PNEUMONIA, UNSPECIFIED ORGANISM Qualifiers: Laterality: left Lung location: lower lobe of lung Qualified Code(s): J18.1 - Lobar pneumonia, unspecified organism (2) COPD exacerbation Code(s): J44.1 - CHRONIC OBSTRUCTIVE PULMONARY DISEASE W (ACUTE) EXACERBATION (3) Chest pain Code(s): R07.9 - CHEST PAIN, UNSPECIFIED Qualifiers: Chest pain type: other chest pain Qualified Code(s): R07.89 - Other chest pain (4) Elevated troponin Code(s): R79.89 - OTHER SPECIFIED ABNORMAL FINDINGS OF BLOOD CHEMISTRY (5) TRACY (acute kidney injury) Code(s): N17.9 - ACUTE KIDNEY FAILURE, UNSPECIFIED (6) Acute on chronic diastolic (congestive) heart failure Code(s): I50.33 - ACUTE ON CHRONIC DIASTOLIC (CONGESTIVE) HEART FAILURE (7) CHF (congestive heart failure) Code(s): I50.9 - HEART FAILURE, UNSPECIFIED (8) Chest heaviness Code(s): R07.89 - OTHER CHEST PAIN (9) Contusion of rib on right side Code(s): S20.211A - CONTUSION OF RIGHT FRONT WALL OF THORAX, INITIAL ENCOUNTER Qualifiers: Encounter type: initial encounter Qualified Code(s): S20.211A - Contusion of right front wall of thorax, initial encounter (10) Dyspnea Code(s): R06.00 - DYSPNEA, UNSPECIFIED Qualifiers: Dyspnea type: orthopnea Qualified Code(s): R06.01 - Orthopnea (11) Epigastric abdominal pain Code(s): R10.13 - EPIGASTRIC PAIN (12) Epistaxis Code(s): R04.0 - EPISTAXIS (13) Hypotension Code(s): I95.9 - HYPOTENSION, UNSPECIFIED (14) LPRD (laryngopharyngeal reflux disease) Code(s): K21.9 - GASTRO-ESOPHAGEAL REFLUX DISEASE WITHOUT ESOPHAGITIS (15) Moderate aortic stenosis Code(s): I35.0 - NONRHEUMATIC AORTIC (VALVE) STENOSIS (16) Myocardial disease Code(s): I51.5 - MYOCARDIAL DEGENERATION (17) Nausea Code(s): R11.0 - NAUSEA (18) Obstructive sleep apnea Code(s): G47.33 - OBSTRUCTIVE SLEEP APNEA (ADULT) (PEDIATRIC) (19) Paroxysmal a-fib Code(s): I48.0 - PAROXYSMAL ATRIAL FIBRILLATION (20) Pleural effusion Code(s): J90 - PLEURAL EFFUSION, NOT ELSEWHERE CLASSIFIED (21) Pneumonia Code(s): J18.9 - PNEUMONIA, UNSPECIFIED ORGANISM (22) Rib fractures Code(s): S22.39XA - FRACTURE OF ONE RIB, UNSP SIDE, INIT FOR CLOS FX Qualifiers: Encounter type: subsequent encounter Rib fracture type: single rib Fracture type: closed Laterality: right Fracture healing: with routine healing Qualified Code(s): S22.31XD - Fracture of one rib, right side, subsequent encounter for fracture with routine healing (23) SOB (shortness of breath) Code(s): R06.02 - SHORTNESS OF BREATH (24) Atrial fibrillation Code(s): I48.91 - UNSPECIFIED ATRIAL FIBRILLATION (25) CAD (coronary artery disease) Code(s): I25.10 - ATHSCL HEART DISEASE OF [place] CORONARY ARTERY W/O ANG PCTRS (26) COPD (chronic obstructive pulmonary disease) Code(s): J44.9 - CHRONIC OBSTRUCTIVE PULMONARY DISEASE, UNSPECIFIED (27) Chronic abdominal pain Code(s): R10.9 - UNSPECIFIED ABDOMINAL PAIN; G89.29 - OTHER CHRONIC PAIN (28) Chronic back pain Code(s): M54.9 - DORSALGIA, UNSPECIFIED; G89.29 - OTHER CHRONIC PAIN (29) Chronic diastolic heart failure Code(s): I50.32 - CHRONIC DIASTOLIC (CONGESTIVE) HEART FAILURE (30) Constipation Code(s): K59.00 - CONSTIPATION, UNSPECIFIED (31) History of coronary artery stent placement Code(s): Z95.5 - PRESENCE OF CORONARY ANGIOPLASTY IMPLANT AND GRAFT (32) Hyperlipidemia Code(s): E78.5 - HYPERLIPIDEMIA, UNSPECIFIED (33) Hypertension Code(s): I10 - ESSENTIAL (PRIMARY) HYPERTENSION Assessment/Plan ?CAP/bronchitis CHF diastolic acute ashd af copd morbid obesity angina pectoris obstructive sleep apnea Anxiety Atrial fibrillation-->ablation Rx CAD: s/p multiple PCIs; the latest 12/08: patent mid LAD and RPDA prior stents; PTCA of distal OM1; latest angiograms 04/15 and 03/16: non-obstructive CAD Congestive heart failure (diastolic) COPD Hypercholesterolemia Hypertension Moderate aortic regurgitation Obesity s/p pulmonary vein ablation x 2 for PAF, most recently at [facility] (followed by Dr. Fam Pollock) Plan ABX lasix copd rx will f/u cardiac viramontes stable
--- NOTE | 2017-03-28 12:49 | EKG ---
Test Reason : Blood Pressure : / mmHG Vent. Rate : 068 BPM Atrial Rate : 068 BPM P-R Int : 196 ms QRS Dur : 176 ms QT Int : 520 ms P-R-T Axes : 079 -84 041 degrees QTc Int : 552 ms NORMAL SINUS RHYTHM RIGHT BUNDLE BRANCH BLOCK LEFT ANTERIOR FASCICULAR BLOCK BIFASCICULAR BLOCK ABNORMAL ECG WHEN COMPARED WITH ECG OF 27-MAR-2017 09:28, NO SIGNIFICANT CHANGE WAS FOUND Confirmed by CYNTHIA SCHAFER MD ([id number]) on 03/28/2017 12:49:09 PM Referred By: Confirmed By:CYNTHIA SCHAFER MD
--- NOTE | 2017-03-28 15:55 | PN ---
Progress Note (short form) - Note Progress Note: PULMONARY CONSULTATION DICTATED 03/28/17 IMP DYSPNEA ASHD S/P STENTS X 14 ACUTE ON CHRONIC CHF COPD AFIB OSAS NOT COMPLIANT WITH CPAP HTN HLD + TROPONINS PLAN O2 INHALED BRONCHODILATORS LASIX CHEST CT DAILY WTS RATE CONTROL TREND TROPONINS DR MIRANDA Problem List - Problems (1) COPD exacerbation Code(s): J44.1 - CHRONIC OBSTRUCTIVE PULMONARY DISEASE W (ACUTE) EXACERBATION (2) Acute on chronic diastolic (congestive) heart failure Code(s): I50.33 - ACUTE ON CHRONIC DIASTOLIC (CONGESTIVE) HEART FAILURE (3) Chest heaviness Code(s): R07.89 - OTHER CHEST PAIN (4) Dyspnea Code(s): R06.00 - DYSPNEA, UNSPECIFIED Qualifiers: Dyspnea type: orthopnea Qualified Code(s): R06.01 - Orthopnea (5) Obstructive sleep apnea Code(s): G47.33 - OBSTRUCTIVE SLEEP APNEA (ADULT) (PEDIATRIC) (6) Paroxysmal a-fib Code(s): I48.0 - PAROXYSMAL ATRIAL FIBRILLATION (7) SOB (shortness of breath) Code(s): R06.02 - SHORTNESS OF BREATH (8) Atrial fibrillation Code(s): I48.91 - UNSPECIFIED ATRIAL FIBRILLATION (9) CAD (coronary artery disease) Code(s): I25.10 - ATHSCL HEART DISEASE OF [place] CORONARY ARTERY W/O ANG PCTRS (10) Chronic diastolic heart failure Code(s): I50.32 - CHRONIC DIASTOLIC (CONGESTIVE) HEART FAILURE (11) History of coronary artery stent placement Code(s): Z95.5 - PRESENCE OF CORONARY ANGIOPLASTY IMPLANT AND GRAFT (12) Hyperlipidemia Code(s): E78.5 - HYPERLIPIDEMIA, UNSPECIFIED
--- NOTE | 2017-03-28 17:57 | CONS ---
PULMONARY CONSULTATION DATE OF CONSULTATION: 03/28/2017 REFERRING PHYSICIAN: Mike Boland MD HISTORY OF PRESENT ILLNESS: The patient is a 61-year-old white male known to me from previous hospitalization and office followup with past medical history of COPD; ASHD status post CO, status post 14 stents, last one probably 2 years ago; CHF; obstructive sleep apnea, not compliant with CPAP; GERD; hypertension; dyslipidemia; obesity, admitted to [facility] with complaints of shortness of breath and chest pressure for 7 hours. Patient states he woke up from sleep, complained of chest pressure and shortness of breath described as chest tightness. He said he took his nitroglycerin spray which offered some improvement. He also states he used inhaled bronchodilator which offered some improvement. Denied any fevers, chills, nausea, vomiting, diaphoresis. Had occasional dry cough. No hemoptysis. Denies any wheezing. Patient was admitted with the above. On admission, he had chest x-ray performed which revealed chronic changes bilaterally at the bases. BNP was elevated. Patient was started on bronchodilators as well as Lasix and broad-spectrum antibiotics. Patient denies any recent travel. There is no history of occupational exposures. PAST MEDICAL HISTORY: Again includes COPD, hypertension, morbid obesity, obstructive sleep apnea not on CPAP, ASHD status post 14 stents, atrial fibrillation, hyperlipidemia, hypertension, moderate aortic regurgitation, and pulmonary vein ablation x2 secondary to PAF, diastolic heart failure, and angina pectoris. REVIEW OF SYSTEMS: Positive orthopnea. Positive dyspnea. Positive chest tightness. Minimal cough. No fever. No chills. No chest congestion. No abdominal pain. No lower extremity edema. CURRENT MEDICATIONS: Include fenofibrate, Solu-Medrol, Flomax, Tylenol, Prinivil, Cordarone, piperacillin, Zoloft, albuterol, Toprol, Cardizem, Ranexa, Flonase, Zantac, Lipitor, Lasix b.i.d. IV, Imdur, aspirin, Roxicodone, Effient, and Protonix. PHYSICAL EXAMINATION: General: The patient is an obese male, well awake, alert, in no acute distress. Vital Signs: He is currently afebrile. Blood pressure is 141/66, respiratory rate is 20, O2 saturation is 97% on 2 L. Weight is 245 pounds. HEENT: Normocephalic, atraumatic. Neck: Supple. Heart: Irregular, irregular. Normal S1, S2. Chest: A few scattered bilateral wheezes, bibasilar crackles. Abdomen: Soft. Bowel sounds are positive. Extremities: No signs of edema. LABORATORY DATA: WBC is 9.6, hemoglobin 11.7, hematocrit 35, platelet count of 213,000. INR is 2.77. Blood gas not performed. BUN is 19, creatinine 1.0. BNP is 1912. Troponin 0.07. Chest x-ray: No definitive infiltrates and bibasilar atelectatic changes. IMPRESSION: 1. Dyspnea, chest tightness, most likely secondary to atherosclerotic heart disease. 2. Mild congestive heart failure. 3. Doubt pneumonia. 4. Chronic obstructive pulmonary disease, mild exacerbation. 5. Atherosclerotic heart disease status post stents x14. 6. Atrial fibrillation status post ablation x2. 7. Hypertension. 8. Obstructive sleep apnea. PLAN: Supplemental O2, inhaled bronchodilators p.r.n., continue cardiac medications as per Cardiology. Obtain CT scan of the chest to further evaluate pulmonary parenchyma. Trend troponins. MICHAEL MIRANDA M.D. [id number]
[2017-03-28] MEDS: LISINOPRIL 10 MG TABLET (FP) PO SCH (21:09)
[2017-03-28] MEDS: PRASUGREL HCL 5 MG TAB PO SCH (21:09)
[2017-03-28] MEDS: ATORVASTATIN CA 20 MG TABLET (FP) PO SCH (21:09)
[2017-03-28] MEDS ORDERED: WARFARIN NA 2 MG TABLET (UD) PO ONE (21:45)
[2017-03-29] MEDS ORDERED: PT OWN MED DRAWER 7, Y5N ONE ×2 (01:01→17:15)
[2017-03-29] MEDS: PIPERACILLIN/TAZOB 3.375 GM 3.375 GM in DEXTROSE 5%-WATER - 100 ML IVPB SCH ×3 (01:04→17:20)
[2017-03-29] MEDS: methylPREDNISolone NA SUCC 40 MG/1 ML VIAL IVPUSH SCH ×4 (02:02→21:25)
[2017-03-29] MEDS: ACETAMINOPHEN 325 MG TABLET (FP) PO PRN ×3 (03:55→17:20)
[2017-03-29] MEDS: oxyCODONE HCL 5 MG TABLET PO PRN ×4 (03:56→23:25)
[2017-03-29] MEDS: FUROSEMIDE 40 MG/4 ML INJECTABLE VIAL IVPUSH SCH ×2 (05:52→14:38)
[2017-03-29 07:10] LABS: ALBUMIN 3.6 g/dl (3.4-5.0); ALK PHOS 29 U/L (45-117); ANION GAP 9 (8-16); BILIRUBIN,TOTAL 0.5 mg/dL (0.2-1.0); BLOOD UREA NITROGEN 23 mg/dL (7-18); CALCIUM 9.2 mg/dL (8.5-10.1); CHLORIDE 97 mmol/L (98-107); CO2 32 mmol/L (21-32); CREATININE 0.9 mg/dL (0.7-1.3); GLUCOSE,RANDOM 130 mg/dL (74-106); POTASSIUM 3.1 mmol/L (3.5-5.1); SGOT/AST 15 U/L (15-37); SGPT/ALT 24 U/L (12-78); SODIUM 138 mmol/L (136-145)
[2017-03-29 07:49] LABS: BASO % 0.1 % (0-2.0); HEMOGLOBIN 11.8 GM/dL (11.7-16.9); LYMPH % 5.6 % (8-40); MCH 27.4 pg (25.7-33.7); MCHC 32.7 g/dl (32.0-35.9); MEAN CELL VOLUME 83.6 fl (80-96); MEAN PLT VOLUME 8.1 fl (7.5-11.1); MONO % 2.5 % (3.8-10.2); NEUT % 91.8 % (42.8-82.8); PLATELET COUNT 244 K/MM3 (134-434); RBC 4.31 M/mm3 (4.00-5.60); WHITE BLOOD COUNT 12.4 K/mm3 (4.0-10.0)
[2017-03-29 07:55] LABS: INR 2.23 (0.82-1.09); PROTHROMBIN TIME (PATIENT) 25.2 SEC (9.98-11.88)
--- NOTE | 2017-03-29 09:20 | PN ---
Progress Note, Physician - Current Medication List Current Medications: Active Medications Acetaminophen (Tylenol -) 650 mg PO Q4H PRN PRN Reason: PAIN LEVEL 6-10 Stop: 03/30/17 16:47 Last Admin: 03/29/17 03:55 Dose: 650 mg Albuterol Sulfate (Ventolin 0.083% Nebulizer Soln -) 1 amp NEB RQID PRN PRN Reason: SHORT OF BREATH/WHEEZING Last Admin: 03/27/17 20:30 Dose: 1 amp Amiodarone HCl (Cordarone -) 200 mg PO DAILY [facility] Last Admin: 03/28/17 11:22 Dose: 200 mg Aspirin (Asa -) 81 mg PO DAILY [facility] Last Admin: 03/28/17 11:23 Dose: 81 mg Atorvastatin Calcium (Lipitor -) 20 mg PO HS [facility] Last Admin: 03/28/17 21:09 Dose: 20 mg Benzocaine/Menthol (Cepacol Lozenge -) 1 each MM QID [facility] Last Admin: 03/28/17 21:56 Dose: 1 each Diltiazem HCl (Cardizem Cd -) 120 mg PO DAILY [facility] Last Admin: 03/28/17 11:22 Dose: 120 mg Fenofibric Acid (Trilipix -) 135 mg PO DAILY [facility] Fluticasone Propionate (Flonase -) 1 spray NS BID [facility] Last Admin: 03/28/17 21:10 Dose: 1 inh Furosemide (Lasix Injection -) 40 mg IVPUSH BIDLASIX [facility] Last Admin: 03/29/17 05:52 Dose: 40 mg Piperacillin Sod/Tazobactam (Sod 3.375 gm/ Dextrose) 100 mls @ 200 mls/hr IVPB Q8H-IV [facility] PRN Reason: Protocol Last Admin: 03/29/17 01:04 Dose: 200 mls/hr Isosorbide Mononitrate (Imdur -) 120 mg PO DAILY [facility] Last Admin: 03/28/17 11:24 Dose: 120 mg Lisinopril (Prinivil) 10 mg PO HS [facility] Last Admin: 03/28/17 21:09 Dose: 10 mg Methylprednisolone Sodium Succinate (Solu-Medrol -) 40 mg IVPUSH Q6H-IV [facility] Last Admin: 03/29/17 02:02 Dose: 40 mg Metoprolol Succinate (Toprol Xl -) 100 mg PO DAILY [facility] Last Admin: 03/28/17 15:53 Dose: 100 mg Oxycodone HCl (Roxicodone -) 30 mg PO HS PRN PRN Reason: PAIN LEVEL 1-5 Last Admin: 03/27/17 22:13 Dose: 30 mg Oxycodone HCl (Roxicodone -) 10 mg PO Q6H PRN PRN Reason: PAIN LEVEL 6-10 Last Admin: 03/29/17 03:56 Dose: 10 mg Pantoprazole Sodium (Protonix -) 20 mg PO DAILY [facility] Last Admin: 03/28/17 11:23 Dose: 20 mg Prasugrel (Effient -) 5 mg PO HS [facility] Last Admin: 03/28/17 21:09 Dose: 5 mg Ranitidine HCl (Zantac -) 150 mg PO DAILY [facility] Last Admin: 03/28/17 11:22 Dose: 150 mg Ranolazine (Ranexa -) 1,000 mg PO BID [facility] Last Admin: 03/28/17 21:09 Dose: 1,000 mg Sertraline HCl (Zoloft -) 50 mg PO DAILY [facility] Last Admin: 03/28/17 11:23 Dose: 50 mg Tamsulosin HCl (Flomax -) 0.4 mg PO DAILY@0830 [facility] Last Admin: 03/28/17 11:20 Dose: 0.4 mg - Objective Vital Signs: Vital Signs Temperature 98.1 F 03/29/17 05:00 Pulse Rate 69 03/29/17 05:00 Respiratory Rate 20 03/29/17 05:00 Blood Pressure 133/67 03/29/17 05:00 O2 Sat by Pulse Oximetry (%) 97 03/28/17 20:26 Labs: CBC, BMP 03/29/17 05:05 03/29/17 05:05 INR, PTT INR 2.23 (0.82-1.09) H 03/29/17 05:05 Problem List - Problems (1) CAP (community acquired pneumonia) Code(s): J18.9 - PNEUMONIA, UNSPECIFIED ORGANISM Qualifiers: Laterality: left Lung location: lower lobe of lung Qualified Code(s): J18.1 - Lobar pneumonia, unspecified organism (2) Chest pain Code(s): R07.9 - CHEST PAIN, UNSPECIFIED Qualifiers: Chest pain type: other chest pain Qualified Code(s): R07.89 - Other chest pain (3) CHF (congestive heart failure) Code(s): I50.9 - HEART FAILURE, UNSPECIFIED (4) Paroxysmal a-fib Code(s): I48.0 - PAROXYSMAL ATRIAL FIBRILLATION (5) Hypertension Code(s): I10 - ESSENTIAL (PRIMARY) HYPERTENSION
[2017-03-29] MEDS ORDERED: POTASSIUM CHLORIDE TABS 20 MEQ TABLET.ER (FP) PO ONE (09:45)
[2017-03-29] MEDS: FENOFIBRIC ACID 135 MG CAP PO SCH (09:57)
[2017-03-29] MEDS: RANOLAZINE E.R. 1,000 MG TABLET (FP) PO SCH ×2 (09:57→21:31)
[2017-03-29] MEDS: ISOSORBIDE MONONITRATE 60 MG TAB.SR.24H (FP) PO SCH (09:58)
[2017-03-29] MEDS: AMIODARONE HCL 200 MG TABLET (FP) PO SCH (09:58)
[2017-03-29] MEDS: SERTRALINE HCL 50 MG TABLET (FP) PO SCH (09:58)
[2017-03-29] MEDS: ASPIRIN 81 MG CHEWABLE TABLETS PO SCH (09:58)
[2017-03-29] MEDS: RANITIDINE HCL 150 MG TABLET (FP) PO SCH (09:58)
[2017-03-29] MEDS: METOPROLOL SUCCINATE 100 MG TAB.SR.24H (FP) PO SCH (09:58)
[2017-03-29] MEDS: PANTOPRAZOLE 20 MG TABLET (FP) PO SCH (09:58)
[2017-03-29] MEDS: BENZOCAINE/MENTH/CETYLPYRD CL 1 EACH LOZENGE MM SCH ×4 (10:00→21:25)
[2017-03-29] MEDS: FLUTICASONE PROP 0.05% 16 GM NASAL SPRAY NS SCH ×2 (10:01→21:25)
[2017-03-29] MEDS: TAMSULOSIN HCL 0.4 MG CAP.ER.24H (FP) PO SCH ×2 (10:06→17:21)
--- NOTE | 2017-03-29 11:44 | PN ---
Progress Note, Physician History of Present Illness: PULMONARY ALERT,FEELING BETTER,LESS DYSPNEIC,- CHEST PRESSURE - Current Medication List Current Medications: Active Medications Acetaminophen (Tylenol -) 650 mg PO Q4H PRN PRN Reason: PAIN LEVEL 6-10 Stop: 03/30/17 16:47 Last Admin: 03/29/17 10:59 Dose: 650 mg Albuterol Sulfate (Ventolin 0.083% Nebulizer Soln -) 1 amp NEB RQID PRN PRN Reason: SHORT OF BREATH/WHEEZING Last Admin: 03/27/17 20:30 Dose: 1 amp Amiodarone HCl (Cordarone -) 200 mg PO DAILY [facility] Last Admin: 03/29/17 09:58 Dose: 200 mg Aspirin (Asa -) 81 mg PO DAILY [facility] Last Admin: 03/29/17 09:58 Dose: 81 mg Atorvastatin Calcium (Lipitor -) 20 mg PO HS [facility] Last Admin: 03/28/17 21:09 Dose: 20 mg Benzocaine/Menthol (Cepacol Lozenge -) 1 each MM QID [facility] Last Admin: 03/29/17 10:00 Dose: 1 each Diltiazem HCl (Cardizem Cd -) 120 mg PO DAILY [facility] Last Admin: 03/29/17 09:58 Dose: 120 mg Fenofibric Acid (Trilipix -) 135 mg PO DAILY [facility] Last Admin: 03/29/17 09:57 Dose: 135 mg Fluticasone Propionate (Flonase -) 1 spray NS BID [facility] Last Admin: 03/29/17 10:01 Dose: 1 inh Furosemide (Lasix Injection -) 40 mg IVPUSH BIDLASIX [facility] Last Admin: 03/29/17 05:52 Dose: 40 mg Piperacillin Sod/Tazobactam (Sod 3.375 gm/ Dextrose) 100 mls @ 200 mls/hr IVPB Q8H-IV RENY PRN Reason: Protocol Last Admin: 03/29/17 09:57 Dose: 200 mls/hr Isosorbide Mononitrate (Imdur -) 120 mg PO DAILY [facility] Last Admin: 03/29/17 09:58 Dose: 120 mg Lisinopril (Prinivil) 10 mg PO HS [facility] Last Admin: 03/28/17 21:09 Dose: 10 mg Methylprednisolone Sodium Succinate (Solu-Medrol -) 40 mg IVPUSH BID [facility] Last Admin: 03/29/17 09:57 Dose: 40 mg Metoprolol Succinate (Toprol Xl -) 100 mg PO DAILY [facility] Last Admin: 03/29/17 09:58 Dose: 100 mg Oxycodone HCl (Roxicodone -) 30 mg PO HS PRN PRN Reason: PAIN LEVEL 1-5 Last Admin: 03/27/17 22:13 Dose: 30 mg Oxycodone HCl (Roxicodone -) 10 mg PO Q6H PRN PRN Reason: PAIN LEVEL 6-10 Last Admin: 03/29/17 11:00 Dose: 10 mg Pantoprazole Sodium (Protonix -) 20 mg PO DAILY [facility] Last Admin: 03/29/17 09:58 Dose: 20 mg Prasugrel (Effient -) 5 mg PO HS [facility] Last Admin: 03/28/17 21:09 Dose: 5 mg Ranitidine HCl (Zantac -) 150 mg PO DAILY [facility] Last Admin: 03/29/17 09:58 Dose: 150 mg Ranolazine (Ranexa -) 1,000 mg PO BID [facility] Last Admin: 03/29/17 09:57 Dose: 1,000 mg Sertraline HCl (Zoloft -) 50 mg PO DAILY [facility] Last Admin: 03/29/17 09:58 Dose: 50 mg Tamsulosin HCl (Flomax -) 0.4 mg PO DAILY@0830 [facility] Last Admin: 03/29/17 10:06 Dose: Not Given - Objective Vital Signs: Vital Signs Temperature 98.2 F 03/29/17 09:00 Pulse Rate 72 03/29/17 09:00 Respiratory Rate 16 03/29/17 09:00 Blood Pressure 158/88 03/29/17 09:00 O2 Sat by Pulse Oximetry (%) 97 03/28/17 20:26 Constitutional: Yes: Well Nourished, Calm Eyes: Yes: WNL HENT: Yes: WNL Neck: Yes: WNL Cardiovascular: Yes: Pulse Irregular, S1, S2 Respiratory: Yes: CTA Bilaterally Gastrointestinal: Yes: Normal Bowel Sounds, Soft Extremities: Yes: WNL Edema: No Labs: CBC, BMP 03/29/17 05:05 03/29/17 05:05 INR, PTT INR 2.23 (0.82-1.09) H 03/29/17 05:05 - ....Imaging Cat Scan: Report Reviewed, Image Reviewed (RML ALELECTASIS) Problem List - Problems (1) COPD exacerbation Code(s): J44.1 - CHRONIC OBSTRUCTIVE PULMONARY DISEASE W (ACUTE) EXACERBATION (2) Acute on chronic diastolic (congestive) heart failure Code(s): I50.33 - ACUTE ON CHRONIC DIASTOLIC (CONGESTIVE) HEART FAILURE (3) Chest heaviness Code(s): R07.89 - OTHER CHEST PAIN (4) Dyspnea Code(s): R06.00 - DYSPNEA, UNSPECIFIED Qualifiers: Dyspnea type: orthopnea Qualified Code(s): R06.01 - Orthopnea (5) Obstructive sleep apnea Code(s): G47.33 - OBSTRUCTIVE SLEEP APNEA (ADULT) (PEDIATRIC) (6) Paroxysmal a-fib Code(s): I48.0 - PAROXYSMAL ATRIAL FIBRILLATION (7) SOB (shortness of breath) Code(s): R06.02 - SHORTNESS OF BREATH (8) Atrial fibrillation Code(s): I48.91 - UNSPECIFIED ATRIAL FIBRILLATION (9) CAD (coronary artery disease) Code(s): I25.10 - ATHSCL HEART DISEASE OF [place] CORONARY ARTERY W/O ANG PCTRS (10) Chronic diastolic heart failure Code(s): I50.32 - CHRONIC DIASTOLIC (CONGESTIVE) HEART FAILURE (11) History of coronary artery stent placement Code(s): Z95.5 - PRESENCE OF CORONARY ANGIOPLASTY IMPLANT AND GRAFT (12) Hyperlipidemia Code(s): E78.5 - HYPERLIPIDEMIA, UNSPECIFIED Assessment/Plan IMP DYSPNEA IMPROVING ASHD S/P STENTS X 14 ACUTE ON CHRONIC CHF COPD AFIB OSAS NOT COMPLIANT WITH CPAP HTN HLD + TROPONINS PLAN O2 INHALED BRONCHODILATORS LASIX DAILY WTS TREND TROPONINS TAPER STEROIDS DR MIRANDA Problem List - Problems (1) COPD exacerbation Code(s): J44.1 - CHRONIC OBSTRUCTIVE PULMONARY DISEASE W (ACUTE) EXACERBATION (2) Acute on chronic diastolic (congestive) heart failure Code(s): I50.33 - ACUTE ON CHRONIC DIASTOLIC (CONGESTIVE) HEART FAILURE (3) Chest heaviness Code(s): R07.89 - OTHER CHEST PAIN (4) Dyspnea Code(s): R06.00 - DYSPNEA, UNSPECIFIED Qualifiers: Dyspnea type: orthopnea Qualified Code(s): R06.01 - Orthopnea (5) Obstructive sleep apnea Code(s): G47.33 - OBSTRUCTIVE SLEEP APNEA (ADULT) (PEDIATRIC) (6) Paroxysmal a-fib Code(s): I48.0 - PAROXYSMAL ATRIAL FIBRILLATION (7) SOB (shortness of breath) Code(s): R06.02 - SHORTNESS OF BREATH (8) Atrial fibrillation Code(s): I48.91 - UNSPECIFIED ATRIAL FIBRILLATION (9) CAD (coronary artery disease) Code(s): I25.10 - ATHSCL HEART DISEASE OF [place] CORONARY ARTERY W/O ANG PCTRS (10) Chronic diastolic heart failure Code(s): I50.32 - CHRONIC DIASTOLIC (CONGESTIVE) HEART FAILURE (11) History of coronary artery stent placement Code(s): Z95.5 - PRESENCE OF CORONARY ANGIOPLASTY IMPLANT AND GRAFT (12) Hyperlipidemia Code(s): E78.5 - HYPERLIPIDEMIA, UNSPECIFIED
--- NOTE | 2017-03-29 13:23 | PN ---
Progress Note, Physician History of Present Illness: starting to feel better says breathing is improving - Current Medication List Current Medications: Active Medications Acetaminophen (Tylenol -) 650 mg PO Q4H PRN PRN Reason: PAIN LEVEL 6-10 Stop: 03/30/17 16:47 Last Admin: 03/29/17 10:59 Dose: 650 mg Albuterol Sulfate (Ventolin 0.083% Nebulizer Soln -) 1 amp NEB RQID PRN PRN Reason: SHORT OF BREATH/WHEEZING Last Admin: 03/27/17 20:30 Dose: 1 amp Amiodarone HCl (Cordarone -) 200 mg PO DAILY [facility] Last Admin: 03/29/17 09:58 Dose: 200 mg Aspirin (Asa -) 81 mg PO DAILY [facility] Last Admin: 03/29/17 09:58 Dose: 81 mg Atorvastatin Calcium (Lipitor -) 20 mg PO HS [facility] Last Admin: 03/28/17 21:09 Dose: 20 mg Benzocaine/Menthol (Cepacol Lozenge -) 1 each MM QID [facility] Last Admin: 03/29/17 10:00 Dose: 1 each Diltiazem HCl (Cardizem Cd -) 120 mg PO DAILY [facility] Last Admin: 03/29/17 09:58 Dose: 120 mg Fenofibric Acid (Trilipix -) 135 mg PO DAILY [facility] Last Admin: 03/29/17 09:57 Dose: 135 mg Fluticasone Propionate (Flonase -) 1 spray NS BID [facility] Last Admin: 03/29/17 10:01 Dose: 1 inh Furosemide (Lasix Injection -) 40 mg IVPUSH BIDLASIX [facility] Last Admin: 03/29/17 05:52 Dose: 40 mg Piperacillin Sod/Tazobactam (Sod 3.375 gm/ Dextrose) 100 mls @ 200 mls/hr IVPB Q8H-IV RENY PRN Reason: Protocol Last Admin: 03/29/17 09:57 Dose: 200 mls/hr Isosorbide Mononitrate (Imdur -) 120 mg PO DAILY [facility] Last Admin: 03/29/17 09:58 Dose: 120 mg Lisinopril (Prinivil) 10 mg PO HS [facility] Last Admin: 03/28/17 21:09 Dose: 10 mg Methylprednisolone Sodium Succinate (Solu-Medrol -) 40 mg IVPUSH BID [facility] Last Admin: 03/29/17 09:57 Dose: 40 mg Metoprolol Succinate (Toprol Xl -) 100 mg PO DAILY [facility] Last Admin: 03/29/17 09:58 Dose: 100 mg Oxycodone HCl (Roxicodone -) 30 mg PO HS PRN PRN Reason: PAIN LEVEL 1-5 Last Admin: 03/27/17 22:13 Dose: 30 mg Oxycodone HCl (Roxicodone -) 10 mg PO Q6H PRN PRN Reason: PAIN LEVEL 6-10 Last Admin: 03/29/17 11:00 Dose: 10 mg Pantoprazole Sodium (Protonix -) 20 mg PO DAILY [facility] Last Admin: 03/29/17 09:58 Dose: 20 mg Prasugrel (Effient -) 5 mg PO HS [facility] Last Admin: 03/28/17 21:09 Dose: 5 mg Ranitidine HCl (Zantac -) 150 mg PO DAILY [facility] Last Admin: 03/29/17 09:58 Dose: 150 mg Ranolazine (Ranexa -) 1,000 mg PO BID [facility] Last Admin: 03/29/17 09:57 Dose: 1,000 mg Sertraline HCl (Zoloft -) 50 mg PO DAILY [facility] Last Admin: 03/29/17 09:58 Dose: 50 mg Tamsulosin HCl (Flomax -) 0.4 mg PO DAILY@1700 [facility] Warfarin Sodium (Coumadin -) 2.5 mg PO DAILY@1800 [facility] - Objective Vital Signs: Vital Signs Temperature 98.2 F 03/29/17 09:00 Pulse Rate 72 03/29/17 09:00 Respiratory Rate 16 03/29/17 09:00 Blood Pressure 158/88 03/29/17 09:00 O2 Sat by Pulse Oximetry (%) 97 03/29/17 09:00 Constitutional: Yes: No Distress, Calm, Obese Cardiovascular: Yes: Regular Rate and Rhythm Respiratory: Yes: Regular, On Nasal O2, Poor Air Entry, Rhonchi Gastrointestinal: Yes: Normal Bowel Sounds, Soft Musculoskeletal: Yes: WNL Extremities: Yes: WNL Neurological: Yes: Alert, Oriented Psychiatric: Yes: Alert, Oriented Labs: CBC, BMP 03/29/17 05:05 03/29/17 05:05 INR, PTT INR 2.23 (0.82-1.09) H 03/29/17 05:05 Assessment/Plan Problem List - Problems (1) CAP (community acquired pneumonia) Code(s): J18.9 - PNEUMONIA, UNSPECIFIED ORGANISM Qualifiers: Laterality: left Lung location: lower lobe of lung Qualified Code(s): J18.1 - Lobar pneumonia, unspecified organism (2) COPD exacerbation Code(s): J44.1 - CHRONIC OBSTRUCTIVE PULMONARY DISEASE W (ACUTE) EXACERBATION (3) Chest pain Code(s): R07.9 - CHEST PAIN, UNSPECIFIED Qualifiers: Chest pain type: other chest pain Qualified Code(s): R07.89 - Other chest pain (4) Elevated troponin Code(s): R79.89 - OTHER SPECIFIED ABNORMAL FINDINGS OF BLOOD CHEMISTRY (5) TRACY (acute kidney injury) Code(s): N17.9 - ACUTE KIDNEY FAILURE, UNSPECIFIED (6) Acute on chronic diastolic (congestive) heart failure Code(s): I50.33 - ACUTE ON CHRONIC DIASTOLIC (CONGESTIVE) HEART FAILURE (7) CHF (congestive heart failure) Code(s): I50.9 - HEART FAILURE, UNSPECIFIED (8) Chest heaviness Code(s): R07.89 - OTHER CHEST PAIN (9) Contusion of rib on right side Code(s): S20.211A - CONTUSION OF RIGHT FRONT WALL OF THORAX, INITIAL ENCOUNTER Qualifiers: Encounter type: initial encounter Qualified Code(s): S20.211A - Contusion of right front wall of thorax, initial encounter (10) Dyspnea Code(s): R06.00 - DYSPNEA, UNSPECIFIED Qualifiers: Dyspnea type: orthopnea Qualified Code(s): R06.01 - Orthopnea (11) Epigastric abdominal pain Code(s): R10.13 - EPIGASTRIC PAIN (12) Epistaxis Code(s): R04.0 - EPISTAXIS (13) Hypotension Code(s): I95.9 - HYPOTENSION, UNSPECIFIED (14) LPRD (laryngopharyngeal reflux disease) Code(s): K21.9 - GASTRO-ESOPHAGEAL REFLUX DISEASE WITHOUT ESOPHAGITIS (15) Moderate aortic stenosis Code(s): I35.0 - NONRHEUMATIC AORTIC (VALVE) STENOSIS (16) Myocardial disease Code(s): I51.5 - MYOCARDIAL DEGENERATION (17) Nausea Code(s): R11.0 - NAUSEA (18) Obstructive sleep apnea Code(s): G47.33 - OBSTRUCTIVE SLEEP APNEA (ADULT) (PEDIATRIC) (19) Paroxysmal a-fib Code(s): I48.0 - PAROXYSMAL ATRIAL FIBRILLATION (20) Pleural effusion Code(s): J90 - PLEURAL EFFUSION, NOT ELSEWHERE CLASSIFIED (21) Pneumonia Code(s): J18.9 - PNEUMONIA, UNSPECIFIED ORGANISM (22) Rib fractures Code(s): S22.39XA - FRACTURE OF ONE RIB, UNSP SIDE, INIT FOR CLOS FX Qualifiers: Encounter type: subsequent encounter Rib fracture type: single rib Fracture type: closed Laterality: right Fracture healing: with routine healing Qualified Code(s): S22.31XD - Fracture of one rib, right side, subsequent encounter for fracture with routine healing (23) SOB (shortness of breath) Code(s): R06.02 - SHORTNESS OF BREATH (24) Atrial fibrillation Code(s): I48.91 - UNSPECIFIED ATRIAL FIBRILLATION (25) CAD (coronary artery disease) Code(s): I25.10 - ATHSCL HEART DISEASE OF [place] CORONARY ARTERY W/O ANG PCTRS (26) COPD (chronic obstructive pulmonary disease) Code(s): J44.9 - CHRONIC OBSTRUCTIVE PULMONARY DISEASE, UNSPECIFIED (27) Chronic abdominal pain Code(s): R10.9 - UNSPECIFIED ABDOMINAL PAIN; G89.29 - OTHER CHRONIC PAIN (28) Chronic back pain Code(s): M54.9 - DORSALGIA, UNSPECIFIED; G89.29 - OTHER CHRONIC PAIN (29) Chronic diastolic heart failure Code(s): I50.32 - CHRONIC DIASTOLIC (CONGESTIVE) HEART FAILURE (30) Constipation Code(s): K59.00 - CONSTIPATION, UNSPECIFIED (31) History of coronary artery stent placement Code(s): Z95.5 - PRESENCE OF CORONARY ANGIOPLASTY IMPLANT AND GRAFT (32) Hyperlipidemia Code(s): E78.5 - HYPERLIPIDEMIA, UNSPECIFIED (33) Hypertension Code(s): I10 - ESSENTIAL (PRIMARY) HYPERTENSION plan continue abx continue resp support rest as per primary team and cardiology
--- NOTE | 2017-03-29 13:24 | PN ---
Progress Note, Physician History of Present Illness: much better says breathing is much better - Current Medication List Current Medications: Active Medications Acetaminophen (Tylenol -) 650 mg PO Q4H PRN PRN Reason: PAIN LEVEL 6-10 Stop: 03/30/17 16:47 Last Admin: 03/29/17 10:59 Dose: 650 mg Albuterol Sulfate (Ventolin 0.083% Nebulizer Soln -) 1 amp NEB RQID PRN PRN Reason: SHORT OF BREATH/WHEEZING Last Admin: 03/27/17 20:30 Dose: 1 amp Amiodarone HCl (Cordarone -) 200 mg PO DAILY [facility] Last Admin: 03/29/17 09:58 Dose: 200 mg Aspirin (Asa -) 81 mg PO DAILY [facility] Last Admin: 03/29/17 09:58 Dose: 81 mg Atorvastatin Calcium (Lipitor -) 20 mg PO HS [facility] Last Admin: 03/28/17 21:09 Dose: 20 mg Benzocaine/Menthol (Cepacol Lozenge -) 1 each MM QID [facility] Last Admin: 03/29/17 10:00 Dose: 1 each Diltiazem HCl (Cardizem Cd -) 120 mg PO DAILY [facility] Last Admin: 03/29/17 09:58 Dose: 120 mg Fenofibric Acid (Trilipix -) 135 mg PO DAILY [facility] Last Admin: 03/29/17 09:57 Dose: 135 mg Fluticasone Propionate (Flonase -) 1 spray NS BID [facility] Last Admin: 03/29/17 10:01 Dose: 1 inh Furosemide (Lasix Injection -) 40 mg IVPUSH BIDLASIX [facility] Last Admin: 03/29/17 05:52 Dose: 40 mg Piperacillin Sod/Tazobactam (Sod 3.375 gm/ Dextrose) 100 mls @ 200 mls/hr IVPB Q8H-IV RENY PRN Reason: Protocol Last Admin: 03/29/17 09:57 Dose: 200 mls/hr Isosorbide Mononitrate (Imdur -) 120 mg PO DAILY [facility] Last Admin: 03/29/17 09:58 Dose: 120 mg Lisinopril (Prinivil) 10 mg PO HS [facility] Last Admin: 03/28/17 21:09 Dose: 10 mg Methylprednisolone Sodium Succinate (Solu-Medrol -) 40 mg IVPUSH BID [facility] Last Admin: 03/29/17 09:57 Dose: 40 mg Metoprolol Succinate (Toprol Xl -) 100 mg PO DAILY [facility] Last Admin: 03/29/17 09:58 Dose: 100 mg Oxycodone HCl (Roxicodone -) 30 mg PO HS PRN PRN Reason: PAIN LEVEL 1-5 Last Admin: 03/27/17 22:13 Dose: 30 mg Oxycodone HCl (Roxicodone -) 10 mg PO Q6H PRN PRN Reason: PAIN LEVEL 6-10 Last Admin: 03/29/17 11:00 Dose: 10 mg Pantoprazole Sodium (Protonix -) 20 mg PO DAILY [facility] Last Admin: 03/29/17 09:58 Dose: 20 mg Prasugrel (Effient -) 5 mg PO HS [facility] Last Admin: 03/28/17 21:09 Dose: 5 mg Ranitidine HCl (Zantac -) 150 mg PO DAILY [facility] Last Admin: 03/29/17 09:58 Dose: 150 mg Ranolazine (Ranexa -) 1,000 mg PO BID [facility] Last Admin: 03/29/17 09:57 Dose: 1,000 mg Sertraline HCl (Zoloft -) 50 mg PO DAILY [facility] Last Admin: 03/29/17 09:58 Dose: 50 mg Tamsulosin HCl (Flomax -) 0.4 mg PO DAILY@1700 [facility] Warfarin Sodium (Coumadin -) 2.5 mg PO DAILY@1800 [facility] - Objective Vital Signs: Vital Signs Temperature 98.2 F 03/29/17 09:00 Pulse Rate 72 03/29/17 09:00 Respiratory Rate 16 03/29/17 09:00 Blood Pressure 158/88 03/29/17 09:00 O2 Sat by Pulse Oximetry (%) 97 03/29/17 09:00 Constitutional: Yes: No Distress, Calm, Obese Cardiovascular: Yes: Regular Rate and Rhythm Respiratory: Yes: Regular, Poor Air Entry Gastrointestinal: Yes: Normal Bowel Sounds Musculoskeletal: Yes: WNL Extremities: Yes: WNL Neurological: Yes: Alert, Oriented Psychiatric: Yes: Alert, Oriented Labs: CBC, BMP 03/29/17 05:05 03/29/17 05:05 INR, PTT INR 2.23 (0.82-1.09) H 03/29/17 05:05 Assessment/Plan Problem List - Problems (1) CAP (community acquired pneumonia) Code(s): J18.9 - PNEUMONIA, UNSPECIFIED ORGANISM Qualifiers: Laterality: left Lung location: lower lobe of lung Qualified Code(s): J18.1 - Lobar pneumonia, unspecified organism (2) COPD exacerbation Code(s): J44.1 - CHRONIC OBSTRUCTIVE PULMONARY DISEASE W (ACUTE) EXACERBATION (3) Chest pain Code(s): R07.9 - CHEST PAIN, UNSPECIFIED Qualifiers: Chest pain type: other chest pain Qualified Code(s): R07.89 - Other chest pain (4) Elevated troponin Code(s): R79.89 - OTHER SPECIFIED ABNORMAL FINDINGS OF BLOOD CHEMISTRY (5) TRACY (acute kidney injury) Code(s): N17.9 - ACUTE KIDNEY FAILURE, UNSPECIFIED (6) Acute on chronic diastolic (congestive) heart failure Code(s): I50.33 - ACUTE ON CHRONIC DIASTOLIC (CONGESTIVE) HEART FAILURE (7) CHF (congestive heart failure) Code(s): I50.9 - HEART FAILURE, UNSPECIFIED (8) Chest heaviness Code(s): R07.89 - OTHER CHEST PAIN (9) Contusion of rib on right side Code(s): S20.211A - CONTUSION OF RIGHT FRONT WALL OF THORAX, INITIAL ENCOUNTER Qualifiers: Encounter type: initial encounter Qualified Code(s): S20.211A - Contusion of right front wall of thorax, initial encounter (10) Dyspnea Code(s): R06.00 - DYSPNEA, UNSPECIFIED Qualifiers: Dyspnea type: orthopnea Qualified Code(s): R06.01 - Orthopnea (11) Epigastric abdominal pain Code(s): R10.13 - EPIGASTRIC PAIN (12) Epistaxis Code(s): R04.0 - EPISTAXIS (13) Hypotension Code(s): I95.9 - HYPOTENSION, UNSPECIFIED (14) LPRD (laryngopharyngeal reflux disease) Code(s): K21.9 - GASTRO-ESOPHAGEAL REFLUX DISEASE WITHOUT ESOPHAGITIS (15) Moderate aortic stenosis Code(s): I35.0 - NONRHEUMATIC AORTIC (VALVE) STENOSIS (16) Myocardial disease Code(s): I51.5 - MYOCARDIAL DEGENERATION (17) Nausea Code(s): R11.0 - NAUSEA (18) Obstructive sleep apnea Code(s): G47.33 - OBSTRUCTIVE SLEEP APNEA (ADULT) (PEDIATRIC) (19) Paroxysmal a-fib Code(s): I48.0 - PAROXYSMAL ATRIAL FIBRILLATION (20) Pleural effusion Code(s): J90 - PLEURAL EFFUSION, NOT ELSEWHERE CLASSIFIED (21) Pneumonia Code(s): J18.9 - PNEUMONIA, UNSPECIFIED ORGANISM (22) Rib fractures Code(s): S22.39XA - FRACTURE OF ONE RIB, UNSP SIDE, INIT FOR CLOS FX Qualifiers: Encounter type: subsequent encounter Rib fracture type: single rib Fracture type: closed Laterality: right Fracture healing: with routine healing Qualified Code(s): S22.31XD - Fracture of one rib, right side, subsequent encounter for fracture with routine healing (23) SOB (shortness of breath) Code(s): R06.02 - SHORTNESS OF BREATH (24) Atrial fibrillation Code(s): I48.91 - UNSPECIFIED ATRIAL FIBRILLATION (25) CAD (coronary artery disease) Code(s): I25.10 - ATHSCL HEART DISEASE OF [place] CORONARY ARTERY W/O ANG PCTRS (26) COPD (chronic obstructive pulmonary disease) Code(s): J44.9 - CHRONIC OBSTRUCTIVE PULMONARY DISEASE, UNSPECIFIED (27) Chronic abdominal pain Code(s): R10.9 - UNSPECIFIED ABDOMINAL PAIN; G89.29 - OTHER CHRONIC PAIN (28) Chronic back pain Code(s): M54.9 - DORSALGIA, UNSPECIFIED; G89.29 - OTHER CHRONIC PAIN (29) Chronic diastolic heart failure Code(s): I50.32 - CHRONIC DIASTOLIC (CONGESTIVE) HEART FAILURE (30) Constipation Code(s): K59.00 - CONSTIPATION, UNSPECIFIED (31) History of coronary artery stent placement Code(s): Z95.5 - PRESENCE OF CORONARY ANGIOPLASTY IMPLANT AND GRAFT (32) Hyperlipidemia Code(s): E78.5 - HYPERLIPIDEMIA, UNSPECIFIED (33) Hypertension Code(s): I10 - ESSENTIAL (PRIMARY) HYPERTENSION plan continue abx continue resp support hopefully will be able to switch to oral tomorrow incentive liban rest as per primary team
--- NOTE | 2017-03-29 13:57 | PN ---
Progress Note, Physician Chief Complaint: Pt A&Ox3; feels much better (no chest pain, dyspnea, palpitations, or dizziness) . His is at bedside. History of Present Illness: 61 y/o male (fatimah Lopez) with history of COPD (no home O2), A. fib (on Coumadin) , [place] with (14 stents, last one placed 2 years prior), diastolic CHF, GERD, HTN, dyslipidemia, sleep apnea, and obesity, now presenting with SOB and chest pressure for the past 7 hours. States that the pain started at 2:00 AM for which he took a nitro spray which helped relieve the pain. The shortness of breath was concomitant and only slightly responsive to two nebs at home. Admits to some recent dry cough but denies fevers, chills, nausea, vomiting, diarrhea, constipation, urinary symptoms, blood from any orifice, or other sick symptoms. 03/27/17 09:23 - Current Medication List Current Medications: Active Medications Acetaminophen (Tylenol -) 650 mg PO Q4H PRN PRN Reason: PAIN LEVEL 6-10 Stop: 03/30/17 16:47 Last Admin: 03/29/17 10:59 Dose: 650 mg Albuterol Sulfate (Ventolin 0.083% Nebulizer Soln -) 1 amp NEB RQID PRN PRN Reason: SHORT OF BREATH/WHEEZING Last Admin: 03/27/17 20:30 Dose: 1 amp Amiodarone HCl (Cordarone -) 200 mg PO DAILY [facility] Last Admin: 03/29/17 09:58 Dose: 200 mg Aspirin (Asa -) 81 mg PO DAILY [facility] Last Admin: 03/29/17 09:58 Dose: 81 mg Atorvastatin Calcium (Lipitor -) 20 mg PO HS [facility] Last Admin: 03/28/17 21:09 Dose: 20 mg Benzocaine/Menthol (Cepacol Lozenge -) 1 each MM QID [facility] Last Admin: 03/29/17 10:00 Dose: 1 each Diltiazem HCl (Cardizem Cd -) 120 mg PO DAILY [facility] Last Admin: 03/29/17 09:58 Dose: 120 mg Fenofibric Acid (Trilipix -) 135 mg PO DAILY [facility] Last Admin: 03/29/17 09:57 Dose: 135 mg Fluticasone Propionate (Flonase -) 1 spray NS BID [facility] Last Admin: 03/29/17 10:01 Dose: 1 inh Furosemide (Lasix Injection -) 40 mg IVPUSH BIDLASIX [facility] Last Admin: 03/29/17 05:52 Dose: 40 mg Piperacillin Sod/Tazobactam (Sod 3.375 gm/ Dextrose) 100 mls @ 200 mls/hr IVPB Q8H-IV [facility] PRN Reason: Protocol Last Admin: 03/29/17 09:57 Dose: 200 mls/hr Isosorbide Mononitrate (Imdur -) 120 mg PO DAILY [facility] Last Admin: 03/29/17 09:58 Dose: 120 mg Lisinopril (Prinivil) 10 mg PO HS [facility] Last Admin: 03/28/17 21:09 Dose: 10 mg Methylprednisolone Sodium Succinate (Solu-Medrol -) 40 mg IVPUSH BID [facility] Last Admin: 03/29/17 09:57 Dose: 40 mg Metoprolol Succinate (Toprol Xl -) 100 mg PO DAILY [facility] Last Admin: 03/29/17 09:58 Dose: 100 mg Oxycodone HCl (Roxicodone -) 30 mg PO HS PRN PRN Reason: PAIN LEVEL 1-5 Last Admin: 03/27/17 22:13 Dose: 30 mg Oxycodone HCl (Roxicodone -) 10 mg PO Q6H PRN PRN Reason: PAIN LEVEL 6-10 Last Admin: 03/29/17 11:00 Dose: 10 mg Pantoprazole Sodium (Protonix -) 20 mg PO DAILY [facility] Last Admin: 03/29/17 09:58 Dose: 20 mg Prasugrel (Effient -) 5 mg PO HS [facility] Last Admin: 03/28/17 21:09 Dose: 5 mg Ranitidine HCl (Zantac -) 150 mg PO DAILY [facility] Last Admin: 03/29/17 09:58 Dose: 150 mg Ranolazine (Ranexa -) 1,000 mg PO BID [facility] Last Admin: 03/29/17 09:57 Dose: 1,000 mg Sertraline HCl (Zoloft -) 50 mg PO DAILY [facility] Last Admin: 03/29/17 09:58 Dose: 50 mg Tamsulosin HCl (Flomax -) 0.4 mg PO DAILY@1700 [facility] Warfarin Sodium (Coumadin -) 2.5 mg PO DAILY@1800 [facility] - Objective Vital Signs: Vital Signs Temperature 98.2 F 03/29/17 09:00 Pulse Rate 72 03/29/17 09:00 Respiratory Rate 16 03/29/17 09:00 Blood Pressure 158/88 03/29/17 09:00 O2 Sat by Pulse Oximetry (%) 97 03/29/17 09:00 Constitutional: Yes: Anxious Eyes: Yes: WNL HENT: Yes: WNL Neck: Yes: WNL Cardiovascular: Yes: WNL, S1, S2 (split), S4 Respiratory: Yes: Diminished Gastrointestinal: Yes: Soft, Abdomen, Obese ...Rectal Exam: Yes: Deferred Genitourinary: No: Anuria Breast(s): Yes: WNL Musculoskeletal: Yes: WNL Extremities: Yes: WNL Edema: No Peripheral Pulses WNL: Yes Integumentary: Yes: WNL Neurological: Yes: WNL Psychiatric: Yes: WNL Labs: CBC, BMP 03/29/17 05:05 03/29/17 05:05 INR, PTT INR 2.23 (0.82-1.09) H 03/29/17 05:05 Abnormal Lab Results 03/29/17 03/29/17 03/29/17 05:05 05:05 05:05 WBC 12.4 H Neutrophils % 91.8 H Lymphocytes % 5.6 L D Monocytes % 2.5 L PT with INR 25.20 H INR 2.23 H Potassium 3.1 L Chloride 97 L BUN 23 H D Random Glucose 130 H Alkaline Phosphatase 29 L Problem List - Problems (1) Hypothyroid Assessment/Plan: f/u TFTs. Code(s): E03.9 - HYPOTHYROIDISM, UNSPECIFIED (2) Obesity Assessment/Plan: The imperative need to follow heart-healthy diet, with portion control, proper food choices, and portion control was discussed karyn aguilar with pt and family (daughter, by telephone, says she may enroll him in "family Weight Watcher's program" with herself and mother as well. Dietary consult would be of benefit.. Code(s): E66.9 - OBESITY, UNSPECIFIED (3) Obstructive sleep apnea Assessment/Plan: Pt has been noncompliant to CPAP at home, and says his poor dentition does not allow appliance that might serve as alternative. The critical importance of being compliant to the proper therapy was emphasized. The potential for significant improvement in the illness through weight loss was discussed. F/u with mortgage loan originator. Code(s): G47.33 - OBSTRUCTIVE SLEEP APNEA (ADULT) (PEDIATRIC) (4) Bifascicular bundle branch block Assessment/Plan: On three AV conduction blockers. No significant arrhytymias presently. Will discontinue amiodarone because of its many potential adverse effects, and F /u with offshore diver (Dr. Pollock) as outpatient. Code(s): I45.2 - BIFASCICULAR BLOCK (5) Sepsis Code(s): A41.9 - SEPSIS, UNSPECIFIED ORGANISM (6) Paroxysmal a-fib Assessment/Plan: On diltiazem and metoprolol for HR and BP control. On warfarin for anticoagluation; keep INR 2-3. Code(s): I48.0 - PAROXYSMAL ATRIAL FIBRILLATION (7) Presence of stent in coronary artery in patient with coronary artery disease Assessment/Plan: hx multiple coronary stents. Mildly elevated TNI (chroinic) with normal CK. Hx OH. CT: severe calcificcation of coronary arteries and aortic valve. F/u ECHO for LVEF, valve status, assessment of pulmonary HTN. Aggressive lipid management with diet, exercise, high-dose statin. Code(s): I25.10 - ATHSCL HEART DISEASE OF [place] CORONARY ARTERY W/O ANG PCTRS; Z95.5 - PRESENCE OF CORONARY ANGIOPLASTY IMPLANT AND GRAFT (8) Hypertriglyceridemia Assessment/Plan: on Trilipex; keep triglyerides < 100 mg/dL. Code(s): E78.1 - PURE HYPERGLYCERIDEMIA (9) Hyperlipidemia Assessment/Plan: on statin; follow diet change, weight loss; increase exercise. Code(s): E78.5 - HYPERLIPIDEMIA, UNSPECIFIED
[2017-03-29] MEDS: WARFARIN NA 2.5 MG TABLET (FP) PO SCH (17:20)
[2017-03-29] MEDS ORDERED: SENNOSIDES/DOCUSATE COMBO (SENNA PLUS) TABLET (UD) PO PRN (18:08)
[2017-03-29] MEDS: ATORVASTATIN CA 20 MG TABLET (FP) PO SCH (21:25)
[2017-03-29] MEDS: LISINOPRIL 10 MG TABLET (FP) PO SCH (21:25)
[2017-03-29] MEDS: PRASUGREL HCL 5 MG TAB PO SCH (21:32)
[2017-03-29] MEDS: ALBUTEROL SO4 0.083% IH SOL 2.5 MG/3 ML VIAL.NEB. NEB PRN (21:40)
[2017-03-30] MEDS: PIPERACILLIN/TAZOB 3.375 GM 3.375 GM in DEXTROSE 5%-WATER - 100 ML IVPB SCH ×2 (01:05→11:39)
[2017-03-30] MEDS: FUROSEMIDE 40 MG/4 ML INJECTABLE VIAL IVPUSH SCH (05:37)
[2017-03-30 07:18] LABS: HEMATOCRIT 38.8 % (35.4-49); HEMOGLOBIN 12.6 GM/dL (11.7-16.9); LYMPH % 6.1 % (8-40); MCH 27.3 pg (25.7-33.7); MCHC 32.5 g/dl (32.0-35.9); MEAN CELL VOLUME 83.9 fl (80-96); MEAN PLT VOLUME 7.9 fl (7.5-11.1); MONO % 3.7 % (3.8-10.2); NEUT % 90.2 % (42.8-82.8); PLATELET COUNT 262 K/MM3 (134-434); RBC 4.62 M/mm3 (4.00-5.60); WHITE BLOOD COUNT 11.1 K/mm3 (4.0-10.0)
[2017-03-30 07:33] LABS: INR 2.08 (0.82-1.09); PROTHROMBIN TIME (PATIENT) 23.5 SEC (9.98-11.88)
[2017-03-30 07:47] LABS: ALBUMIN 3.8 g/dl (3.4-5.0); ANION GAP 8 (8-16); BILIRUBIN,TOTAL 0.7 mg/dL (0.2-1.0); BLOOD UREA NITROGEN 27 mg/dL (7-18); CALCIUM 9.1 mg/dL (8.5-10.1); CHLORIDE 95 mmol/L (98-107); CO2 34 mmol/L (21-32); GLUCOSE,RANDOM 129 mg/dL (74-106); SGOT/AST 13 U/L (15-37); SGPT/ALT 26 U/L (12-78); SODIUM 137 mmol/L (136-145); TOT PROT 7.2 g/dl (6.4-8.2)
[2017-03-30 07:48] LABS: ALK PHOS 31 U/L (45-117)
--- NOTE | 2017-03-30 08:17 | PN ---
Progress Note, Physician - Current Medication List Current Medications: Active Medications Acetaminophen (Tylenol -) 650 mg PO Q4H PRN PRN Reason: PAIN LEVEL 6-10 Stop: 03/30/17 16:47 Last Admin: 03/29/17 17:20 Dose: 650 mg Albuterol Sulfate (Ventolin 0.083% Nebulizer Soln -) 1 amp NEB RQID PRN PRN Reason: SHORT OF BREATH/WHEEZING Last Admin: 03/29/17 21:40 Dose: 1 amp Aspirin (Asa -) 81 mg PO DAILY [facility] Last Admin: 03/29/17 09:58 Dose: 81 mg Atorvastatin Calcium (Lipitor -) 20 mg PO HS [facility] Last Admin: 03/29/17 21:25 Dose: 20 mg Benzocaine/Menthol (Cepacol Lozenge -) 1 each MM QID [facility] Last Admin: 03/29/17 21:25 Dose: 1 each Diltiazem HCl (Cardizem Cd -) 120 mg PO DAILY [facility] Last Admin: 03/29/17 09:58 Dose: 120 mg Fenofibric Acid (Trilipix -) 135 mg PO DAILY [facility] Last Admin: 03/29/17 09:57 Dose: 135 mg Fluticasone Propionate (Flonase -) 1 spray NS BID [facility] Last Admin: 03/29/17 21:25 Dose: 1 inh Piperacillin Sod/Tazobactam (Sod 3.375 gm/ Dextrose) 100 mls @ 200 mls/hr IVPB Q8H-IV [facility] PRN Reason: Protocol Last Admin: 03/30/17 01:05 Dose: 200 mls/hr Isosorbide Mononitrate (Imdur -) 120 mg PO DAILY [facility] Last Admin: 03/29/17 09:58 Dose: 120 mg Lisinopril (Prinivil) 10 mg PO HS [facility] Last Admin: 03/29/17 21:25 Dose: 10 mg Metoprolol Succinate (Toprol Xl -) 100 mg PO DAILY [facility] Last Admin: 03/29/17 09:58 Dose: 100 mg Oxycodone HCl (Roxicodone -) 30 mg PO HS PRN PRN Reason: PAIN LEVEL 1-5 Last Admin: 03/27/17 22:13 Dose: 30 mg Oxycodone HCl (Roxicodone -) 10 mg PO Q6H PRN PRN Reason: PAIN LEVEL 6-10 Last Admin: 03/29/17 23:25 Dose: 10 mg Pantoprazole Sodium (Protonix -) 20 mg PO DAILY [facility] Last Admin: 03/29/17 09:58 Dose: 20 mg Prasugrel (Effient -) 5 mg PO HS [facility] Last Admin: 03/29/17 21:32 Dose: 5 mg Ranitidine HCl (Zantac -) 150 mg PO DAILY [facility] Last Admin: 03/29/17 09:58 Dose: 150 mg Ranolazine (Ranexa -) 1,000 mg PO BID [facility] Last Admin: 03/29/17 21:31 Dose: 1,000 mg Senna/Docusate Sodium (Pericolace -) 2 tablet PO PRN PRN Reason: CONSTIPATION Sertraline HCl (Zoloft -) 50 mg PO DAILY [facility] Last Admin: 03/29/17 09:58 Dose: 50 mg Tamsulosin HCl (Flomax -) 0.4 mg PO DAILY@1700 [facility] Last Admin: 03/29/17 17:21 Dose: 0.4 mg Warfarin Sodium (Coumadin -) 2.5 mg PO DAILY@1800 [facility] Last Admin: 03/29/17 17:20 Dose: 2.5 mg - Objective Vital Signs: Vital Signs Temperature 98.1 F 03/30/17 05:41 Pulse Rate 61 03/30/17 05:41 Respiratory Rate 20 03/30/17 05:41 Blood Pressure 129/63 03/30/17 05:41 O2 Sat by Pulse Oximetry (%) 97 03/29/17 19:58 Cardiovascular: Yes: Regular Rate and Rhythm Respiratory: Yes: Regular, CTA Bilaterally Gastrointestinal: Yes: Normal Bowel Sounds, Soft Labs: CBC, BMP 03/30/17 06:55 INR, PTT INR 2.08 (0.82-1.09) H 03/30/17 06:55 Problem List - Problems (1) CAP (community acquired pneumonia) Assessment/Plan: IV ABX ID CONSULT noted FOLLOW LABS AND CULTURES NEGATIVE CT CHEST--PNA Code(s): J18.9 - PNEUMONIA, UNSPECIFIED ORGANISM Qualifiers: Laterality: left Lung location: lower lobe of lung Qualified Code(s): J18.1 - Lobar pneumonia, unspecified organism (2) Chest pain Assessment/Plan: RESOLVED FOLLOW CE-- Laboratory Tests 03/28/17 06:35 Troponin I 0.07 H D CARDIO NOTED SAME MEDS Code(s): R07.9 - CHEST PAIN, UNSPECIFIED Qualifiers: Chest pain type: other chest pain Qualified Code(s): R07.89 - Other chest pain (3) CHF (congestive heart failure) Assessment/Plan: IV LASIX--TO PO 80 QD FOLLOW LYTES AND CXR Code(s): I50.9 - HEART FAILURE, UNSPECIFIED (4) Paroxysmal a-fib Assessment/Plan: inr 2--COUMADIN 2.5 Code(s): I48.0 - PAROXYSMAL ATRIAL FIBRILLATION (5) Hypertension Assessment/Plan: --controlled --monitor Code(s): I10 - ESSENTIAL (PRIMARY) HYPERTENSION (6) COPD exacerbation Assessment/Plan: NEBS CHANGE TO PO STEROIDS Code(s): J44.1 - CHRONIC OBSTRUCTIVE PULMONARY DISEASE W (ACUTE) EXACERBATION
[2017-03-30] MEDS ORDERED: PT OWN MED DRAWER 7, Y5N ONE ×3 (09:48→17:11)
[2017-03-30] MEDS: RANOLAZINE E.R. 1,000 MG TABLET (FP) PO SCH ×2 (09:58→21:12)
[2017-03-30] MEDS: FENOFIBRIC ACID 135 MG CAP PO SCH (09:58)
[2017-03-30] MEDS: RANITIDINE HCL 150 MG TABLET (FP) PO SCH (09:58)
[2017-03-30] MEDS: METOPROLOL SUCCINATE 100 MG TAB.SR.24H (FP) PO SCH (09:58)
[2017-03-30] MEDS: ASPIRIN 81 MG CHEWABLE TABLETS PO SCH (09:58)
[2017-03-30] MEDS: FUROSEMIDE 40 MG TABLET (FP) PO SCH (09:58)
[2017-03-30] MEDS: BENZOCAINE/MENTH/CETYLPYRD CL 1 EACH LOZENGE MM SCH ×4 (09:59→21:11)
[2017-03-30] MEDS: ISOSORBIDE MONONITRATE 60 MG TAB.SR.24H (FP) PO SCH (09:59)
[2017-03-30] MEDS: SERTRALINE HCL 50 MG TABLET (FP) PO SCH (09:59)
[2017-03-30] MEDS: PANTOPRAZOLE 20 MG TABLET (FP) PO SCH (09:59)
[2017-03-30] MEDS ORDERED: predniSONE 20 MG TABLET (UD) PO SCH (10:00)
[2017-03-30] MEDS: FLUTICASONE PROP 0.05% 16 GM NASAL SPRAY NS SCH ×2 (10:01→21:12)
[2017-03-30] MEDS: oxyCODONE HCL 5 MG TABLET PO PRN ×2 (10:38→17:15)
[2017-03-30] MEDS: ACETAMINOPHEN 325 MG TABLET (FP) PO PRN (10:39)
--- NOTE | 2017-03-30 11:03 | PN ---
Progress Note, Physician History of Present Illness: 61 M with COPD, CAD/stents, HTN, HLD, afib on coumadin, presenting to ER with SOB and chest pressure. Pt states this woke him from sleep at around 1 AM. He used a nebulizer treatment at home with minimal improvement. Denies F/C. States that his chest pressure is constant, midsternal. Pt believes he is having a COPD exacerbation. Denies leg swelling. Denies recent travel/immobilization. PMH angina pectoris obstructive sleep apnea Anxiety Atrial fibrillation-->ablation Rx CAD: s/p multiple PCIs; the latest 12/08: patent mid LAD and RPDA prior stents; PTCA of distal OM1; latest angiograms 04/15 and 03/16: non-obstructive CAD Congestive heart failure (diastolic) COPD Hypercholesterolemia Hypertension Moderate aortic regurgitation Obesity s/p pulmonary vein ablation x 2 for PAF, most recently at [facility] (followed by Dr. Fam Pollock) - Current Medication List Current Medications: Active Medications Acetaminophen (Tylenol -) 650 mg PO Q4H PRN PRN Reason: PAIN LEVEL 6-10 Stop: 03/30/17 16:47 Last Admin: 03/30/17 10:39 Dose: 650 mg Albuterol Sulfate (Ventolin 0.083% Nebulizer Soln -) 1 amp NEB RQID PRN PRN Reason: SHORT OF BREATH/WHEEZING Last Admin: 03/29/17 21:40 Dose: 1 amp Aspirin (Asa -) 81 mg PO DAILY [facility] Last Admin: 03/30/17 09:58 Dose: 81 mg Atorvastatin Calcium (Lipitor -) 20 mg PO HS [facility] Last Admin: 03/29/17 21:25 Dose: 20 mg Benzocaine/Menthol (Cepacol Lozenge -) 1 each MM QID [facility] Last Admin: 03/30/17 09:59 Dose: 1 each Diltiazem HCl (Cardizem Cd -) 120 mg PO DAILY [facility] Last Admin: 03/30/17 09:58 Dose: 120 mg Fenofibric Acid (Trilipix -) 135 mg PO DAILY [facility] Last Admin: 03/30/17 09:58 Dose: 135 mg Fluticasone Propionate (Flonase -) 1 spray NS BID [facility] Last Admin: 03/30/17 10:01 Dose: 1 inh Furosemide (Lasix -) 80 mg PO DAILY [facility] Last Admin: 03/30/17 09:58 Dose: 80 mg Piperacillin Sod/Tazobactam (Sod 3.375 gm/ Dextrose) 100 mls @ 200 mls/hr IVPB Q8H-IV [facility] PRN Reason: Protocol Last Admin: 03/30/17 01:05 Dose: 200 mls/hr Isosorbide Mononitrate (Imdur -) 120 mg PO DAILY [facility] Last Admin: 03/30/17 09:59 Dose: 120 mg Lisinopril (Prinivil) 10 mg PO HS [facility] Last Admin: 03/29/17 21:25 Dose: 10 mg Metoprolol Succinate (Toprol Xl -) 100 mg PO DAILY [facility] Last Admin: 03/30/17 09:58 Dose: 100 mg Oxycodone HCl (Roxicodone -) 30 mg PO HS PRN PRN Reason: PAIN LEVEL 1-5 Last Admin: 03/27/17 22:13 Dose: 30 mg Oxycodone HCl (Roxicodone -) 10 mg PO Q6H PRN PRN Reason: PAIN LEVEL 6-10 Last Admin: 03/30/17 10:38 Dose: 10 mg Pantoprazole Sodium (Protonix -) 20 mg PO DAILY [facility] Last Admin: 03/30/17 09:59 Dose: 20 mg Prasugrel (Effient -) 5 mg PO HS [facility] Last Admin: 03/29/17 21:32 Dose: 5 mg Prednisone (Deltasone -) 40 mg PO BID [facility] Last Admin: 03/30/17 09:58 Dose: 40 mg Ranitidine HCl (Zantac -) 150 mg PO DAILY [facility] Last Admin: 03/30/17 09:58 Dose: 150 mg Ranolazine (Ranexa -) 1,000 mg PO BID [facility] Last Admin: 03/30/17 09:58 Dose: 1,000 mg Senna/Docusate Sodium (Pericolace -) 2 tablet PO HS PRN PRN Reason: CONSTIPATION Sertraline HCl (Zoloft -) 50 mg PO DAILY [facility] Last Admin: 03/30/17 09:59 Dose: 50 mg Tamsulosin HCl (Flomax -) 0.4 mg PO DAILY@1700 [facility] Last Admin: 03/29/17 17:21 Dose: 0.4 mg Warfarin Sodium (Coumadin -) 2.5 mg PO DAILY@1800 [facility] Last Admin: 03/29/17 17:20 Dose: 2.5 mg - Objective Vital Signs: Vital Signs Temperature 98.2 F 03/30/17 08:05 Pulse Rate 64 03/30/17 08:05 Respiratory Rate 16 03/30/17 08:05 Blood Pressure 130/56 03/30/17 08:05 O2 Sat by Pulse Oximetry (%) 97 03/29/17 19:58 Eyes: Yes: WNL, Conjunctiva Clear, EOM Intact HENT: Yes: WNL, Atraumatic, Normocephalic Neck: Yes: WNL, Supple, Trachea Midline Cardiovascular: Yes: WNL, Regular Rate and Rhythm Respiratory: Yes: WNL, Regular, CTA Bilaterally Gastrointestinal: Yes: WNL, Normal Bowel Sounds Genitourinary: Yes: WNL Musculoskeletal: Yes: WNL Extremities: Yes: WNL Edema: No Integumentary: Yes: WNL Neurological: Yes: WNL, Alert, Oriented ...Motor Strength: WNL Psychiatric: Yes: WNL Labs: CBC, BMP 03/30/17 06:55 03/30/17 06:55 INR, PTT INR 2.08 (0.82-1.09) H 03/30/17 06:55 Problem List - Problems (1) CAP (community acquired pneumonia) Code(s): J18.9 - PNEUMONIA, UNSPECIFIED ORGANISM Qualifiers: Laterality: left Lung location: lower lobe of lung Qualified Code(s): J18.1 - Lobar pneumonia, unspecified organism (2) COPD exacerbation Code(s): J44.1 - CHRONIC OBSTRUCTIVE PULMONARY DISEASE W (ACUTE) EXACERBATION (3) Chest pain Code(s): R07.9 - CHEST PAIN, UNSPECIFIED Qualifiers: Chest pain type: other chest pain Qualified Code(s): R07.89 - Other chest pain (4) Elevated troponin Code(s): R79.89 - OTHER SPECIFIED ABNORMAL FINDINGS OF BLOOD CHEMISTRY (5) TRACY (acute kidney injury) Code(s): N17.9 - ACUTE KIDNEY FAILURE, UNSPECIFIED (6) Acute on chronic diastolic (congestive) heart failure Code(s): I50.33 - ACUTE ON CHRONIC DIASTOLIC (CONGESTIVE) HEART FAILURE (7) CHF (congestive heart failure) Code(s): I50.9 - HEART FAILURE, UNSPECIFIED (8) Chest heaviness Code(s): R07.89 - OTHER CHEST PAIN (9) Contusion of rib on right side Code(s): S20.211A - CONTUSION OF RIGHT FRONT WALL OF THORAX, INITIAL ENCOUNTER Qualifiers: Encounter type: initial encounter Qualified Code(s): S20.211A - Contusion of right front wall of thorax, initial encounter (10) Dyspnea Code(s): R06.00 - DYSPNEA, UNSPECIFIED Qualifiers: Dyspnea type: orthopnea Qualified Code(s): R06.01 - Orthopnea (11) Epigastric abdominal pain Code(s): R10.13 - EPIGASTRIC PAIN (12) Epistaxis Code(s): R04.0 - EPISTAXIS (13) Hypotension Code(s): I95.9 - HYPOTENSION, UNSPECIFIED (14) LPRD (laryngopharyngeal reflux disease) Code(s): K21.9 - GASTRO-ESOPHAGEAL REFLUX DISEASE WITHOUT ESOPHAGITIS (15) Moderate aortic stenosis Code(s): I35.0 - NONRHEUMATIC AORTIC (VALVE) STENOSIS (16) Myocardial disease Code(s): I51.5 - MYOCARDIAL DEGENERATION (17) Nausea Code(s): R11.0 - NAUSEA (18) Obstructive sleep apnea Code(s): G47.33 - OBSTRUCTIVE SLEEP APNEA (ADULT) (PEDIATRIC) (19) Paroxysmal a-fib Code(s): I48.0 - PAROXYSMAL ATRIAL FIBRILLATION (20) Pleural effusion Code(s): J90 - PLEURAL EFFUSION, NOT ELSEWHERE CLASSIFIED (21) Pneumonia Code(s): J18.9 - PNEUMONIA, UNSPECIFIED ORGANISM (22) Rib fractures Code(s): S22.39XA - FRACTURE OF ONE RIB, UNSP SIDE, INIT FOR CLOS FX Qualifiers: Encounter type: subsequent encounter Rib fracture type: single rib Fracture type: closed Laterality: right Fracture healing: with routine healing Qualified Code(s): S22.31XD - Fracture of one rib, right side, subsequent encounter for fracture with routine healing (23) SOB (shortness of breath) Code(s): R06.02 - SHORTNESS OF BREATH (24) Atrial fibrillation Code(s): I48.91 - UNSPECIFIED ATRIAL FIBRILLATION (25) CAD (coronary artery disease) Code(s): I25.10 - ATHSCL HEART DISEASE OF [place] CORONARY ARTERY W/O ANG PCTRS (26) COPD (chronic obstructive pulmonary disease) Code(s): J44.9 - CHRONIC OBSTRUCTIVE PULMONARY DISEASE, UNSPECIFIED (27) Chronic abdominal pain Code(s): R10.9 - UNSPECIFIED ABDOMINAL PAIN; G89.29 - OTHER CHRONIC PAIN (28) Chronic back pain Code(s): M54.9 - DORSALGIA, UNSPECIFIED; G89.29 - OTHER CHRONIC PAIN (29) Chronic diastolic heart failure Code(s): I50.32 - CHRONIC DIASTOLIC (CONGESTIVE) HEART FAILURE (30) Constipation Code(s): K59.00 - CONSTIPATION, UNSPECIFIED (31) History of coronary artery stent placement Code(s): Z95.5 - PRESENCE OF CORONARY ANGIOPLASTY IMPLANT AND GRAFT (32) Hyperlipidemia Code(s): E78.5 - HYPERLIPIDEMIA, UNSPECIFIED (33) Hypertension Code(s): I10 - ESSENTIAL (PRIMARY) HYPERTENSION Assessment/Plan - Problems (1) Hypothyroid Assessment/Plan: f/u TFTs. Code(s): E03.9 - HYPOTHYROIDISM, UNSPECIFIED (2) Obesity Assessment/Plan: The imperative need to follow heart-healthy diet, with portion control, proper food choices, and portion control was discussed karyn aguilar with pt and family (daughter, by telephone, says she may enroll him in "family Weight Watcher's program" with herself and mother as well. Dietary consult would be of benefit.. Code(s): E66.9 - OBESITY, UNSPECIFIED (3) Obstructive sleep apnea Assessment/Plan: Pt has been noncompliant to CPAP at home, and says his poor dentition does not allow appliance that might serve as alternative. The critical importance of being compliant to the proper therapy was emphasized. The potential for significant improvement in the illness through weight loss was discussed. F/u with automobile body customizer. Code(s): G47.33 - OBSTRUCTIVE SLEEP APNEA (ADULT) (PEDIATRIC) (4) Bifascicular bundle branch block Assessment/Plan: On three AV conduction blockers. No significant arrhytymias presently. Will discontinue amiodarone because of its many potential adverse effects, and F /u with net c developer (Dr. Pollock) as outpatient. Code(s): I45.2 - BIFASCICULAR BLOCK (5) Sepsis Code(s): A41.9 - SEPSIS, UNSPECIFIED ORGANISM (6) Paroxysmal a-fib Assessment/Plan: On diltiazem and metoprolol for HR and BP control. On warfarin for anticoagluation; keep INR 2-3. Code(s): I48.0 - PAROXYSMAL ATRIAL FIBRILLATION (7) Presence of stent in coronary artery in patient with coronary artery disease Assessment/Plan: hx multiple coronary stents. Mildly elevated TNI (chroinic) with normal CK. Hx ID. CT: severe calcificcation of coronary arteries and aortic valve. F/u ECHO for LVEF, valve status, assessment of pulmonary HTN. Aggressive lipid management with diet, exercise, high-dose statin. Code(s): I25.10 - ATHSCL HEART DISEASE OF [place] CORONARY ARTERY W/O ANG PCTRS; Z95.5 - PRESENCE OF CORONARY ANGIOPLASTY IMPLANT AND GRAFT (8) Hypertriglyceridemia Assessment/Plan: on Trilipex; keep triglyerides < 100 mg/dL. Code(s): E78.1 - PURE HYPERGLYCERIDEMIA (9) Hyperlipidemia Assessment/Plan: on statin; follow diet change, weight loss; increase exercise. Code(s): E78.5 - HYPERLIPIDEMIA, UNSPECIFIED
--- NOTE | 2017-03-30 12:02 | PN ---
Progress Note, Physician History of Present Illness: PULMONARY ALERT,FEELING BETTER,-CP,SOB IMPROVING - Current Medication List Current Medications: Active Medications Acetaminophen (Tylenol -) 650 mg PO Q4H PRN PRN Reason: PAIN LEVEL 6-10 Stop: 03/30/17 16:47 Last Admin: 03/30/17 10:39 Dose: 650 mg Albuterol Sulfate (Ventolin 0.083% Nebulizer Soln -) 1 amp NEB RQID PRN PRN Reason: SHORT OF BREATH/WHEEZING Last Admin: 03/29/17 21:40 Dose: 1 amp Aspirin (Asa -) 81 mg PO DAILY [facility] Last Admin: 03/30/17 09:58 Dose: 81 mg Atorvastatin Calcium (Lipitor -) 20 mg PO HS [facility] Last Admin: 03/29/17 21:25 Dose: 20 mg Benzocaine/Menthol (Cepacol Lozenge -) 1 each MM QID [facility] Last Admin: 03/30/17 09:59 Dose: 1 each Diltiazem HCl (Cardizem Cd -) 120 mg PO DAILY [facility] Last Admin: 03/30/17 09:58 Dose: 120 mg Fenofibric Acid (Trilipix -) 135 mg PO DAILY [facility] Last Admin: 03/30/17 09:58 Dose: 135 mg Fluticasone Propionate (Flonase -) 1 spray NS BID [facility] Last Admin: 03/30/17 10:01 Dose: 1 inh Furosemide (Lasix -) 80 mg PO DAILY [facility] Last Admin: 03/30/17 09:58 Dose: 80 mg Piperacillin Sod/Tazobactam (Sod 3.375 gm/ Dextrose) 100 mls @ 200 mls/hr IVPB Q8H-IV RENY PRN Reason: Protocol Last Admin: 03/30/17 11:39 Dose: 200 mls/hr Isosorbide Mononitrate (Imdur -) 120 mg PO DAILY [facility] Last Admin: 03/30/17 09:59 Dose: 120 mg Lisinopril (Prinivil) 10 mg PO HS [facility] Last Admin: 03/29/17 21:25 Dose: 10 mg Metoprolol Succinate (Toprol Xl -) 100 mg PO DAILY [facility] Last Admin: 03/30/17 09:58 Dose: 100 mg Oxycodone HCl (Roxicodone -) 30 mg PO HS PRN PRN Reason: PAIN LEVEL 1-5 Last Admin: 03/27/17 22:13 Dose: 30 mg Oxycodone HCl (Roxicodone -) 10 mg PO Q6H PRN PRN Reason: PAIN LEVEL 6-10 Last Admin: 03/30/17 10:38 Dose: 10 mg Pantoprazole Sodium (Protonix -) 20 mg PO DAILY [facility] Last Admin: 03/30/17 09:59 Dose: 20 mg Prasugrel (Effient -) 5 mg PO HS [facility] Last Admin: 03/29/17 21:32 Dose: 5 mg Prednisone (Deltasone -) 40 mg PO BID [facility] Last Admin: 03/30/17 09:58 Dose: 40 mg Ranitidine HCl (Zantac -) 150 mg PO DAILY [facility] Last Admin: 03/30/17 09:58 Dose: 150 mg Ranolazine (Ranexa -) 1,000 mg PO BID [facility] Last Admin: 03/30/17 09:58 Dose: 1,000 mg Senna/Docusate Sodium (Pericolace -) 2 tablet PO HS PRN PRN Reason: CONSTIPATION Sertraline HCl (Zoloft -) 50 mg PO DAILY [facility] Last Admin: 03/30/17 09:59 Dose: 50 mg Tamsulosin HCl (Flomax -) 0.4 mg PO DAILY@1700 [facility] Last Admin: 03/29/17 17:21 Dose: 0.4 mg Warfarin Sodium (Coumadin -) 2.5 mg PO DAILY@1800 [facility] Last Admin: 03/29/17 17:20 Dose: 2.5 mg - Objective Vital Signs: Vital Signs Temperature 98.2 F 03/30/17 08:05 Pulse Rate 64 03/30/17 08:05 Respiratory Rate 16 03/30/17 08:05 Blood Pressure 130/56 03/30/17 08:05 O2 Sat by Pulse Oximetry (%) 97 03/29/17 19:58 Constitutional: Yes: Well Nourished, Calm Eyes: Yes: WNL HENT: Yes: WNL Neck: Yes: WNL Cardiovascular: Yes: Pulse Irregular, S1, S2 Respiratory: Yes: CTA Bilaterally Gastrointestinal: Yes: Normal Bowel Sounds, Soft Extremities: Yes: WNL Edema: No Labs: CBC, BMP 03/30/17 06:55 03/30/17 06:55 INR, PTT INR 2.08 (0.82-1.09) H 03/30/17 06:55 Problem List - Problems (1) COPD exacerbation Code(s): J44.1 - CHRONIC OBSTRUCTIVE PULMONARY DISEASE W (ACUTE) EXACERBATION (2) Acute on chronic diastolic (congestive) heart failure Code(s): I50.33 - ACUTE ON CHRONIC DIASTOLIC (CONGESTIVE) HEART FAILURE (3) Chest heaviness Code(s): R07.89 - OTHER CHEST PAIN (4) Dyspnea Code(s): R06.00 - DYSPNEA, UNSPECIFIED Qualifiers: Dyspnea type: orthopnea Qualified Code(s): R06.01 - Orthopnea (5) Obstructive sleep apnea Code(s): G47.33 - OBSTRUCTIVE SLEEP APNEA (ADULT) (PEDIATRIC) (6) Paroxysmal a-fib Code(s): I48.0 - PAROXYSMAL ATRIAL FIBRILLATION (7) SOB (shortness of breath) Code(s): R06.02 - SHORTNESS OF BREATH (8) Atrial fibrillation Code(s): I48.91 - UNSPECIFIED ATRIAL FIBRILLATION (9) CAD (coronary artery disease) Code(s): I25.10 - ATHSCL HEART DISEASE OF [place] CORONARY ARTERY W/O ANG PCTRS (10) Chronic diastolic heart failure Code(s): I50.32 - CHRONIC DIASTOLIC (CONGESTIVE) HEART FAILURE (11) History of coronary artery stent placement Code(s): Z95.5 - PRESENCE OF CORONARY ANGIOPLASTY IMPLANT AND GRAFT (12) Hyperlipidemia Code(s): E78.5 - HYPERLIPIDEMIA, UNSPECIFIED Assessment/Plan IMP DYSPNEA IMPROVING ASHD S/P STENTS X 14 ACUTE ON CHRONIC CHF COPD AFIB OSAS NOT COMPLIANT WITH CPAP HTN HLD + TROPONINS PLAN O2 INHALED BRONCHODILATORS LASIX DAILY WTS TREND TROPONINS TAPER STEROIDS CONSIDER D/C ANTIBIOTICS NO EVIDENCE OF PNEUMONIA ON CHEST CT FINDINDS C /W ATELECTASIS,NO CHANGE FROM PREVIOUS CHEST CT DR MIRANDA Problem List - Problems (1) COPD exacerbation Code(s): J44.1 - CHRONIC OBSTRUCTIVE PULMONARY DISEASE W (ACUTE) EXACERBATION (2) Acute on chronic diastolic (congestive) heart failure Code(s): I50.33 - ACUTE ON CHRONIC DIASTOLIC (CONGESTIVE) HEART FAILURE (3) Chest heaviness Code(s): R07.89 - OTHER CHEST PAIN (4) Dyspnea Code(s): R06.00 - DYSPNEA, UNSPECIFIED Qualifiers: Dyspnea type: orthopnea Qualified Code(s): R06.01 - Orthopnea (5) Obstructive sleep apnea Code(s): G47.33 - OBSTRUCTIVE SLEEP APNEA (ADULT) (PEDIATRIC) (6) Paroxysmal a-fib Code(s): I48.0 - PAROXYSMAL ATRIAL FIBRILLATION (7) SOB (shortness of breath) Code(s): R06.02 - SHORTNESS OF BREATH (8) Atrial fibrillation Code(s): I48.91 - UNSPECIFIED ATRIAL FIBRILLATION (9) CAD (coronary artery disease) Code(s): I25.10 - ATHSCL HEART DISEASE OF [place] CORONARY ARTERY W/O ANG PCTRS (10) Chronic diastolic heart failure Code(s): I50.32 - CHRONIC DIASTOLIC (CONGESTIVE) HEART FAILURE (11) History of coronary artery stent placement Code(s): Z95.5 - PRESENCE OF CORONARY ANGIOPLASTY IMPLANT AND GRAFT (12) Hyperlipidemia Code(s): E78.5 - HYPERLIPIDEMIA, UNSPECIFIED
--- NOTE | 2017-03-30 15:55 | PN ---
Progress Note, Physician History of Present Illness: feeling a lot better breathing improved good air entry - Current Medication List Current Medications: Active Medications Acetaminophen (Tylenol -) 650 mg PO Q4H PRN PRN Reason: PAIN LEVEL 6-10 Stop: 03/30/17 16:47 Last Admin: 03/30/17 10:39 Dose: 650 mg Albuterol Sulfate (Ventolin 0.083% Nebulizer Soln -) 1 amp NEB RQID PRN PRN Reason: SHORT OF BREATH/WHEEZING Last Admin: 03/29/17 21:40 Dose: 1 amp Aspirin (Asa -) 81 mg PO DAILY [facility] Last Admin: 03/30/17 09:58 Dose: 81 mg Atorvastatin Calcium (Lipitor -) 20 mg PO HS [facility] Last Admin: 03/29/17 21:25 Dose: 20 mg Benzocaine/Menthol (Cepacol Lozenge -) 1 each MM QID [facility] Last Admin: 03/30/17 14:35 Dose: 1 each Diltiazem HCl (Cardizem Cd -) 120 mg PO DAILY [facility] Last Admin: 03/30/17 09:58 Dose: 120 mg Fenofibric Acid (Trilipix -) 135 mg PO DAILY [facility] Last Admin: 03/30/17 09:58 Dose: 135 mg Fluticasone Propionate (Flonase -) 1 spray NS BID [facility] Last Admin: 03/30/17 10:01 Dose: 1 inh Furosemide (Lasix -) 80 mg PO DAILY [facility] Last Admin: 03/30/17 09:58 Dose: 80 mg Piperacillin Sod/Tazobactam (Sod 3.375 gm/ Dextrose) 100 mls @ 200 mls/hr IVPB Q8H-IV RENY PRN Reason: Protocol Last Admin: 03/30/17 11:39 Dose: 200 mls/hr Isosorbide Mononitrate (Imdur -) 120 mg PO DAILY [facility] Last Admin: 03/30/17 09:59 Dose: 120 mg Lisinopril (Prinivil) 10 mg PO HS [facility] Last Admin: 03/29/17 21:25 Dose: 10 mg Metoprolol Succinate (Toprol Xl -) 100 mg PO DAILY [facility] Last Admin: 03/30/17 09:58 Dose: 100 mg Oxycodone HCl (Roxicodone -) 30 mg PO HS PRN PRN Reason: PAIN LEVEL 1-5 Last Admin: 03/27/17 22:13 Dose: 30 mg Oxycodone HCl (Roxicodone -) 10 mg PO Q6H PRN PRN Reason: PAIN LEVEL 6-10 Last Admin: 03/30/17 10:38 Dose: 10 mg Pantoprazole Sodium (Protonix -) 20 mg PO DAILY [facility] Last Admin: 03/30/17 09:59 Dose: 20 mg Prasugrel (Effient -) 5 mg PO HS [facility] Last Admin: 03/29/17 21:32 Dose: 5 mg Prednisone (Deltasone -) 30 mg PO BID [facility] Ranitidine HCl (Zantac -) 150 mg PO DAILY [facility] Last Admin: 03/30/17 09:58 Dose: 150 mg Ranolazine (Ranexa -) 1,000 mg PO BID [facility] Last Admin: 03/30/17 09:58 Dose: 1,000 mg Senna/Docusate Sodium (Pericolace -) 2 tablet PO HS PRN PRN Reason: CONSTIPATION Sertraline HCl (Zoloft -) 50 mg PO DAILY [facility] Last Admin: 03/30/17 09:59 Dose: 50 mg Tamsulosin HCl (Flomax -) 0.4 mg PO DAILY@1700 [facility] Last Admin: 03/29/17 17:21 Dose: 0.4 mg Warfarin Sodium (Coumadin -) 2.5 mg PO DAILY@1800 [facility] Last Admin: 03/29/17 17:20 Dose: 2.5 mg - Objective Vital Signs: Vital Signs Temperature 98.4 F 03/30/17 14:00 Pulse Rate 58 L 03/30/17 14:00 Respiratory Rate 16 03/30/17 09:00 Blood Pressure 100/60 03/30/17 14:00 O2 Sat by Pulse Oximetry (%) 97 03/30/17 09:00 Constitutional: Yes: No Distress, Calm, Obese Cardiovascular: Yes: Regular Rate and Rhythm Respiratory: Yes: Regular, CTA Bilaterally Gastrointestinal: Yes: Normal Bowel Sounds, Soft Musculoskeletal: Yes: WNL Extremities: Yes: WNL Neurological: Yes: Alert, Oriented Psychiatric: Yes: Alert, Oriented Labs: CBC, BMP 03/30/17 06:55 03/30/17 06:55 INR, PTT INR 2.08 (0.82-1.09) H 01/31/18 06:55 Assessment/Plan Problem List - Problems (1) CAP (community acquired pneumonia) Code(s): J18.9 - PNEUMONIA, UNSPECIFIED ORGANISM Qualifiers: Laterality: left Lung location: lower lobe of lung Qualified Code(s): J18.1 - Lobar pneumonia, unspecified organism (2) COPD exacerbation Code(s): J44.1 - CHRONIC OBSTRUCTIVE PULMONARY DISEASE W (ACUTE) EXACERBATION (3) Chest pain Code(s): R07.9 - CHEST PAIN, UNSPECIFIED Qualifiers: Chest pain type: other chest pain Qualified Code(s): R07.89 - Other chest pain (4) Elevated troponin Code(s): R79.89 - OTHER SPECIFIED ABNORMAL FINDINGS OF BLOOD CHEMISTRY (5) TRACY (acute kidney injury) Code(s): N17.9 - ACUTE KIDNEY FAILURE, UNSPECIFIED (6) Acute on chronic diastolic (congestive) heart failure Code(s): I50.33 - ACUTE ON CHRONIC DIASTOLIC (CONGESTIVE) HEART FAILURE (7) CHF (congestive heart failure) Code(s): I50.9 - HEART FAILURE, UNSPECIFIED (8) Chest heaviness Code(s): R07.89 - OTHER CHEST PAIN (9) Contusion of rib on right side Code(s): S20.211A - CONTUSION OF RIGHT FRONT WALL OF THORAX, INITIAL ENCOUNTER Qualifiers: Encounter type: initial encounter Qualified Code(s): S20.211A - Contusion of right front wall of thorax, initial encounter (10) Dyspnea Code(s): R06.00 - DYSPNEA, UNSPECIFIED Qualifiers: Dyspnea type: orthopnea Qualified Code(s): R06.01 - Orthopnea (11) Epigastric abdominal pain Code(s): R10.13 - EPIGASTRIC PAIN (12) Epistaxis Code(s): R04.0 - EPISTAXIS (13) Hypotension Code(s): I95.9 - HYPOTENSION, UNSPECIFIED (14) LPRD (laryngopharyngeal reflux disease) Code(s): K21.9 - GASTRO-ESOPHAGEAL REFLUX DISEASE WITHOUT ESOPHAGITIS (15) Moderate aortic stenosis Code(s): I35.0 - NONRHEUMATIC AORTIC (VALVE) STENOSIS (16) Myocardial disease Code(s): I51.5 - MYOCARDIAL DEGENERATION (17) Nausea Code(s): R11.0 - NAUSEA (18) Obstructive sleep apnea Code(s): G47.33 - OBSTRUCTIVE SLEEP APNEA (ADULT) (PEDIATRIC) (19) Paroxysmal a-fib Code(s): I48.0 - PAROXYSMAL ATRIAL FIBRILLATION (20) Pleural effusion Code(s): J90 - PLEURAL EFFUSION, NOT ELSEWHERE CLASSIFIED (21) Pneumonia Code(s): J18.9 - PNEUMONIA, UNSPECIFIED ORGANISM (22) Rib fractures Code(s): S22.39XA - FRACTURE OF ONE RIB, UNSP SIDE, INIT FOR CLOS FX Qualifiers: Encounter type: subsequent encounter Rib fracture type: single rib Fracture type: closed Laterality: right Fracture healing: with routine healing Qualified Code(s): S22.31XD - Fracture of one rib, right side, subsequent encounter for fracture with routine healing (23) SOB (shortness of breath) Code(s): R06.02 - SHORTNESS OF BREATH (24) Atrial fibrillation Code(s): I48.91 - UNSPECIFIED ATRIAL FIBRILLATION (25) CAD (coronary artery disease) Code(s): I25.10 - ATHSCL HEART DISEASE OF [place] CORONARY ARTERY W/O ANG PCTRS (26) COPD (chronic obstructive pulmonary disease) Code(s): J44.9 - CHRONIC OBSTRUCTIVE PULMONARY DISEASE, UNSPECIFIED (27) Chronic abdominal pain Code(s): R10.9 - UNSPECIFIED ABDOMINAL PAIN; G89.29 - OTHER CHRONIC PAIN (28) Chronic back pain Code(s): M54.9 - DORSALGIA, UNSPECIFIED; G89.29 - OTHER CHRONIC PAIN (29) Chronic diastolic heart failure Code(s): I50.32 - CHRONIC DIASTOLIC (CONGESTIVE) HEART FAILURE (30) Constipation Code(s): K59.00 - CONSTIPATION, UNSPECIFIED (31) History of coronary artery stent placement Code(s): Z95.5 - PRESENCE OF CORONARY ANGIOPLASTY IMPLANT AND GRAFT (32) Hyperlipidemia Code(s): E78.5 - HYPERLIPIDEMIA, UNSPECIFIED (33) Hypertension Code(s): I10 - ESSENTIAL (PRIMARY) HYPERTENSION plan switched to oral augmentin will continue oral for another 4 days incentive liban rest as per primary team
[2017-03-30] MEDS: WARFARIN NA 2.5 MG TABLET (FP) PO SCH (17:15)
[2017-03-30] MEDS: AMOX TR/POT CLAV 875MG/125MG TABLETS (FP) PO SCH (17:15)
[2017-03-30] MEDS: TAMSULOSIN HCL 0.4 MG CAP.ER.24H (FP) PO SCH (17:15)
[2017-03-30] MEDS: LISINOPRIL 10 MG TABLET (FP) PO SCH (21:10)
[2017-03-30] MEDS: predniSONE 10 MG TABLET (UD) PO SCH (21:10)
[2017-03-30] MEDS: ATORVASTATIN CA 20 MG TABLET (FP) PO SCH (21:10)
[2017-03-30] MEDS: PRASUGREL HCL 5 MG TAB PO SCH (21:11)
[2017-03-31] MEDS: oxyCODONE HCL 5 MG TABLET PO PRN ×3 (00:15→16:43)
[2017-03-31 07:18] LABS: INR 2.17 (0.82-1.09); PROTHROMBIN TIME (PATIENT) 24.5 SEC (9.98-11.88)
[2017-03-31 08:16] LABS: ANION GAP 9 (8-16); BLOOD UREA NITROGEN 35 mg/dL (7-18); CALCIUM 8.6 mg/dL (8.5-10.1); CHLORIDE 95 mmol/L (98-107); CO2 33 mmol/L (21-32); GLUCOSE,RANDOM 141 mg/dL (74-106); SODIUM 137 mmol/L (136-145)
--- NOTE | 2017-03-31 08:24 | DS ---
Physical Examination Vital Signs: Vital Signs Temperature 97.8 F 03/31/17 05:00 Pulse Rate 58 L 03/31/17 05:00 Respiratory Rate 20 03/31/17 05:00 Blood Pressure 141/77 03/31/17 05:00 O2 Sat by Pulse Oximetry (%) 97 03/30/17 19:55 Cardiovascular: Yes: S1, S2 Respiratory: Yes: Regular, CTA Bilaterally Gastrointestinal: Yes: Normal Bowel Sounds, Soft Edema: No Labs: CBC, BMP 03/30/17 06:55 Discharge Summary Reason For Visit: COPD EXACERBATION, ELEVATED TROPONIN, PNA Current Active Problems Bifascicular bundle branch block (Acute) CAP (community acquired pneumonia) (Acute) COPD exacerbation (Acute) Chest pain (Acute) Elevated troponin (Acute) Hypertriglyceridemia (Acute) Hypothyroid (Acute) Obesity (Acute) Presence of stent in coronary artery in patient with coronary artery disease ( Acute) Sepsis (Acute) Hospital Course: 61 y/o male with history of COPD (no home O2), A. fib (on Coumadin), [place] with ( 14 stents, last one placed 2 years prior), CHF, GERD, HTN, dyslipidemia, sleep apnea, and obesity presenting with SOB and chest pressure for the past 7 hours. States that the pain started at 2:00 AM for which he took a nitro spray which helped relieve the pain. The shortness of breath was concomitant and only slightly responsive to two nebs at home. Admits to some recent dry cough but denies fevers, chills, nausea, vomiting, diarrhea, constipation, urinary symptoms, blood from any orifice, or other sick symptoms. - Past Medical History Cardiovascular: Yes: AFIB, Aortic Insufficiency, Aortic Stenosis, CAD, CHF ( chronic diastolic), HTN, Hyperlipdemia, [place], Other (SVT) Pulmonary: Yes: COPD, Sleep Apnea Gastrointestinal: Yes: GERD Psych: Yes: Anxiety, Depression Musculoskeletal: Yes: Chronic low back pain - Past Surgical History Past Surgical History: Yes: Stent (Multiple cardiac stents; pulmonary vein ablation Rx x 2 for AF/flutter) - Problems (1) CAP (community acquired pneumonia) Assessment/Plan: IV ABX--po augmentin ID CONSULT noted FOLLOW LABS AND CULTURES NEGATIVE CT CHEST--PNA Code(s): J18.9 - PNEUMONIA, UNSPECIFIED ORGANISM Qualifiers: Laterality: left Lung location: lower lobe of lung Qualified Code(s): J18.1 - Lobar pneumonia, unspecified organism (2) Chest pain Assessment/Plan: RESOLVED FOLLOW CE-- Laboratory Tests 03/28/17 06:35 Troponin I 0.07 H D CARDIO NOTED SAME MEDS Code(s): R07.9 - CHEST PAIN, UNSPECIFIED Qualifiers: Chest pain type: other chest pain Qualified Code(s): R07.89 - Other chest pain (3) CHF (congestive heart failure) Assessment/Plan: IV LASIX--TO PO 80 QD FOLLOW LYTES AND CXR Code(s): I50.9 - HEART FAILURE, UNSPECIFIED (4) Paroxysmal a-fib Assessment/Plan: inr 2--COUMADIN 2.5 Code(s): I48.0 - PAROXYSMAL ATRIAL FIBRILLATION (5) Hypertension Assessment/Plan: --controlled --monitor Code(s): I10 - ESSENTIAL (PRIMARY) HYPERTENSION (6) COPD exacerbation Assessment/Plan: NEBS CHANGE TO PO STEROIDS Code(s): J44.1 - CHRONIC OBSTRUCTIVE PULMONARY DISEASE W (ACUTE) EXACERBATION Condition: Improved - Instructions Referrals: Bari Nolan MD [Primary Care Provider] - 1 Week Disposition: HOME - Home Medications Comprehensive Discharge Medication List: Ambulatory Orders Albuterol Sulfate [Proair Respiclick] 90 mcg IH PRN 08/22/16 Aspirin [ASA -] 81 mg PO ACDIN 08/22/16 Diltiazem HCl [Diltiazem 24Hr ER] 120 mg PO DAILY 08/22/16 Fenofibric Acid [Fibricor] 105 mg PO DAILY 08/22/16 Isosorbide Mononitrate [Isosorbide Mononitrate ER] 120 mg PO DAILY 08/22/16 Levalbuterol HCl 1.25 mg IH TID 08/22/16 Linaclotide [Linzess] 290 mcg PO BID 08/22/16 Lisinopril 10 mg PO ACDIN 08/22/16 Metoclopramide HCl [Reglan] 10 mg PO PRN 08/22/16 Metoprolol Succinate [Toprol Xl] 100 mg PO DAILY 08/22/16 Nitroglycerin [place] [Nitrolingual [place] -] 1 spray TL PRN 08/22/16 Oxycodone HCl 30 mg PO HS PRN 08/22/16 Oxycodone HCl/Acetaminophen [Percocet 10-325 mg Tablet] 1 each PO BID PRN Pravastatin Sodium [Pravachol -] 80 mg PO HS 08/22/16 Ranitidine HCl [Zantac] 150 mg PO ACDIN 08/22/16 Ranolazine [Ranexa] 1,000 mg PO BID 08/22/16 Sucralfate [Carafate -] 1 gm PO DAILY PRN 08/22/16 Tamsulosin HCl [Flomax] 0.4 mg PO ACDIN 08/22/16 Tiotropium Br/Olodaterol HCl [Stiolto Respimat Inhal [place]] 2.5 gm IH BID Beclomethasone Dipropionate [Qvar] 2 puff IH BID 01/16/17 Mometasone Furoate 17 gm NS PRN PRN 01/16/17 Prasugrel HCl [Effient] 5 mg PO HS 01/16/17 Amiodarone HCl [Cordarone -] 200 mg PO DAILY 03/27/17 Hyoscyamine Sulfate 0.125 mg PO ASDIR PRN 03/27/17 Omeprazole 20 mg PO DAILY 03/27/17 Sertraline HCl 50 mg PO DAILY 03/27/17 Amox-Tr/K Cl [Augmentin 875-125mg Tablet -] 1 tab PO BID@0800,1730 #14 tablet Furosemide [Lasix -] 80 mg PO DAILY tablet 03/31/17 Potassium Chloride [K-Dur -] 20 meq PO DAILY #30 tablet.er 03/31/17 Prednisone [Deltasone -] 30 mg PO BID #24 tablet 03/31/17 Sennosides/Docusate Sodium [Pericolace -] 2 tablet PO HS PRN tablet 03/31/17 Warfarin Na [Coumadin -] 2.5 mg PO DAILY@1800 #30 tablet 03/31/17
[2017-03-31 08:25] LABS: POTASSIUM 2.9 mmol/L (3.5-5.1)
[2017-03-31] MEDS: AMOX TR/POT CLAV 875MG/125MG TABLETS (FP) PO SCH ×2 (08:54→16:42)
[2017-03-31] MEDS ORDERED: POTASSIUM CHLORIDE TABS 20 MEQ TABLET.ER (FP) PO ONE (09:00)
[2017-03-31] MEDS ORDERED: KCL 10 MEQ IVPB 10 MEQ/100 ML INFUS.BAG IVPB SCH (09:00)
[2017-03-31] MEDS: BENZOCAINE/MENTH/CETYLPYRD CL 1 EACH LOZENGE MM SCH ×3 (10:00→18:03)
[2017-03-31] MEDS ORDERED: POTASSIUM CHLORIDE TABS 20 MEQ TABLET.ER (FP) PO SCH (10:00)
[2017-03-31] MEDS: ASPIRIN 81 MG CHEWABLE TABLETS PO SCH (10:03)
[2017-03-31] MEDS: ISOSORBIDE MONONITRATE 60 MG TAB.SR.24H (FP) PO SCH (10:04)
[2017-03-31] MEDS: predniSONE 10 MG TABLET (UD) PO SCH (10:04)
[2017-03-31] MEDS: SERTRALINE HCL 50 MG TABLET (FP) PO SCH (10:04)
[2017-03-31] MEDS: METOPROLOL SUCCINATE 100 MG TAB.SR.24H (FP) PO SCH (10:04)
[2017-03-31] MEDS: RANITIDINE HCL 150 MG TABLET (FP) PO SCH (10:04)
[2017-03-31] MEDS: PANTOPRAZOLE 20 MG TABLET (FP) PO SCH (10:05)
[2017-03-31] MEDS: RANOLAZINE E.R. 1,000 MG TABLET (FP) PO SCH (10:05)
[2017-03-31] MEDS: FUROSEMIDE 40 MG TABLET (FP) PO SCH (10:05)
[2017-03-31] MEDS: FENOFIBRIC ACID 135 MG CAP PO SCH (10:05)
--- NOTE | 2017-03-31 10:24 | PN ---
Progress Note, Physician Chief Complaint: Pt A&Ox3; no dyspnea or chest discomfort; legs are not swollen.c/o legs feeling cold at times, and becoming tight when he walks more than a block or so. History of Present Illness: 61 y/o male (fatimah Lopez) with history of COPD (no home O2), A. fib (on Coumadin) , CT with (14 stents, last one placed 2 years prior), diastolic CHF, GERD, HTN, dyslipidemia, sleep apnea, and obesity, now presenting with SOB and chest pressure for the past 7 hours. States that the pain started at 2:00 AM for which he took a nitro spray which helped relieve the pain. The shortness of breath was concomitant and only slightly responsive to two nebs at home. Admits to some recent dry cough but denies fevers, chills, nausea, vomiting, diarrhea, constipation, urinary symptoms, blood from any orifice, or other sick symptoms. 03/27/17 09:23 - Current Medication List Current Medications: Active Medications Albuterol Sulfate (Ventolin 0.083% Nebulizer Soln -) 1 amp NEB RQID PRN PRN Reason: SHORT OF BREATH/WHEEZING Last Admin: 03/29/17 21:40 Dose: 1 amp Amoxicillin/Clavulanate Potassium (Augmentin - 875mg Tablet) 1 tab PO BID@0800, 1730 [facility] Last Admin: 03/31/17 08:54 Dose: 1 tab Aspirin (Asa -) 81 mg PO DAILY [facility] Last Admin: 03/31/17 10:03 Dose: 81 mg Atorvastatin Calcium (Lipitor -) 20 mg PO HS [facility] Last Admin: 03/30/17 21:10 Dose: 20 mg Benzocaine/Menthol (Cepacol Lozenge -) 1 each MM QID [facility] Last Admin: 03/30/17 21:11 Dose: 1 each Diltiazem HCl (Cardizem Cd -) 120 mg PO DAILY [facility] Last Admin: 03/31/17 10:04 Dose: 120 mg Fenofibric Acid (Trilipix -) 135 mg PO DAILY [facility] Last Admin: 03/31/17 10:05 Dose: 135 mg Fluticasone Propionate (Flonase -) 1 spray NS BID [facility] Last Admin: 03/30/17 21:12 Dose: 1 inh Furosemide (Lasix -) 80 mg PO DAILY [facility] Last Admin: 03/31/17 10:05 Dose: 80 mg Potassium Chloride 10 meq/ (Sodium Chloride) 105 mls @ 105 mls/hr IVPB Q1H [facility] Stop: 03/31/17 10:59 Isosorbide Mononitrate (Imdur -) 120 mg PO DAILY [facility] Last Admin: 03/31/17 10:04 Dose: 120 mg Lisinopril (Prinivil) 10 mg PO HS [facility] Last Admin: 03/30/17 21:10 Dose: 10 mg Metoprolol Succinate (Toprol Xl -) 100 mg PO DAILY [facility] Last Admin: 03/31/17 10:04 Dose: 100 mg Oxycodone HCl (Roxicodone -) 30 mg PO HS PRN PRN Reason: PAIN LEVEL 1-5 Last Admin: 03/27/17 22:13 Dose: 30 mg Oxycodone HCl (Roxicodone -) 10 mg PO Q6H PRN PRN Reason: PAIN LEVEL 6-10 Last Admin: 03/31/17 08:54 Dose: 10 mg Pantoprazole Sodium (Protonix -) 20 mg PO DAILY [facility] Last Admin: 03/31/17 10:05 Dose: 20 mg Potassium Chloride (K-Dur -) 20 meq PO DAILY [facility] Prasugrel (Effient -) 5 mg PO HS [facility] Last Admin: 03/30/17 21:11 Dose: 5 mg Prednisone (Deltasone -) 30 mg PO BID [facility] Last Admin: 03/31/17 10:04 Dose: 30 mg Ranitidine HCl (Zantac -) 150 mg PO DAILY [facility] Last Admin: 03/31/17 10:04 Dose: 150 mg Ranolazine (Ranexa -) 1,000 mg PO BID [facility] Last Admin: 03/31/17 10:05 Dose: 1,000 mg Senna/Docusate Sodium (Pericolace -) 2 tablet PO HS PRN PRN Reason: CONSTIPATION Last Admin: 03/30/17 21:13 Dose: 2 tablet Sertraline HCl (Zoloft -) 50 mg PO DAILY [facility] Last Admin: 03/31/17 10:04 Dose: 50 mg Tamsulosin HCl (Flomax -) 0.4 mg PO DAILY@1700 [facility] Last Admin: 03/30/17 17:15 Dose: 0.4 mg Warfarin Sodium (Coumadin -) 2.5 mg PO DAILY@1800 [facility] Last Admin: 03/30/17 17:15 Dose: 2.5 mg - Objective Vital Signs: Vital Signs Temperature 97.8 F 03/31/17 05:00 Pulse Rate 58 L 03/31/17 05:00 Respiratory Rate 20 03/31/17 05:00 Blood Pressure 141/77 03/31/17 05:00 O2 Sat by Pulse Oximetry (%) 97 03/30/17 19:55 Constitutional: Yes: Obese Eyes: Yes: WNL HENT: Yes: WNL Neck: Yes: WNL Cardiovascular: Yes: Regular Rate and Rhythm Respiratory: Yes: Regular Gastrointestinal: Yes: Soft, Abdomen, Obese ...Rectal Exam: Yes: Deferred Genitourinary: No: Anuria Musculoskeletal: Yes: Joint Stiffness Extremities: Yes: WNL Edema: No Peripheral Pulses WNL: Yes Integumentary: Yes: WNL Neurological: Yes: WNL Psychiatric: Yes: WNL Labs: CBC, BMP 03/30/17 06:55 03/31/17 06:15 INR, PTT INR 2.17 (0.82-1.09) H 03/31/17 06:15 Abnormal Lab Results 03/31/17 03/31/17 06:15 06:15 PT with INR 24.50 H INR 2.17 H Potassium 2.9 L* Chloride 95 L Carbon Dioxide 33 H BUN 35 H D Random Glucose 141 H Problem List - Problems (1) Hypothyroid Assessment/Plan: TSH low; f/u Free T3 and free T4.(the latter was elevated in 2017). Code(s): E03.9 - HYPOTHYROIDISM, UNSPECIFIED (2) Obesity Assessment/Plan: The imperative need to follow heart-healthy diet, with portion control, proper food choices, and portion control was discussed karyn aguilar with pt and family (daughter, by telephone, says she may enroll him in "family Weight Watcher's program" with herself and mother as well. Dietary consult would be of benefit.. Code(s): E66.9 - OBESITY, UNSPECIFIED (3) Obstructive sleep apnea Assessment/Plan: Pt has been noncompliant to CPAP at home, and says his poor dentition does not allow appliance that might serve as alternative. The critical importance of being compliant to the proper therapy was emphasized. The potential for significant improvement in the illness through weight loss was discussed. F/u with clothes designer. Code(s): G47.33 - OBSTRUCTIVE SLEEP APNEA (ADULT) (PEDIATRIC) (4) Bifascicular bundle branch block Assessment/Plan: On three AV conduction blockers. No significant arrhytymias presently. Will discontinue amiodarone because of its many potential adverse effects, and F /u with nurse discharge (Dr. Pollock) as outpatient. Code(s): I45.2 - BIFASCICULAR BLOCK (5) Sepsis Code(s): A41.9 - SEPSIS, UNSPECIFIED ORGANISM (6) Paroxysmal a-fib Assessment/Plan: On diltiazem and metoprolol for HR and BP control. On warfarin for anticoagluation; keep INR 2-3. Code(s): I48.0 - PAROXYSMAL ATRIAL FIBRILLATION (7) Presence of stent in coronary artery in patient with coronary artery disease Assessment/Plan: hx multiple coronary stents. Mildly elevated TNI (chroinic) with normal CK. Hx CT. CT: severe calcificcation of coronary arteries and aortic valve. F/u ECHO for LVEF, valve status, assessment of pulmonary HTN. Aggressive lipid management with diet, exercise, high-dose statin. Code(s): I25.10 - ATHSCL HEART DISEASE OF [place] CORONARY ARTERY W/O ANG PCTRS; Z95.5 - PRESENCE OF CORONARY ANGIOPLASTY IMPLANT AND GRAFT (8) Hypertriglyceridemia Assessment/Plan: on Trilipex; keep triglyerides < 100 mg/dL. Code(s): E78.1 - PURE HYPERGLYCERIDEMIA (9) Hyperlipidemia Assessment/Plan: on statin; follow diet change, weight loss; increase exercise On Trilipix for hypertriglyceridemia; diet with less refined carbohydrates is important.. Code(s): E78.5 - HYPERLIPIDEMIA, UNSPECIFIED (10) Aortic stenosis Assessment/Plan: moderate on 2017 ECHo; f/u Valve status, LVEF and LV size seriall m(LV was mildly dilated on that study).. No syncope. Atypical chest pain. diastolic CHF (stable). Severe cacification of the coronary artery system and aortic valve. Code(s): I35.0 - NONRHEUMATIC AORTIC (VALVE) STENOSIS
[2017-03-31] MEDS: POTASSIUM CHLORIDE 10 MEQ in SODIUM CHLORIDE 100 ML IVPB SCH ×2 (11:31→13:58)
[2017-03-31] MEDS: FLUTICASONE PROP 0.05% 16 GM NASAL SPRAY NS SCH (11:35)
--- NOTE | 2017-03-31 12:24 | PN ---
Progress Note (short form) - Note Progress Note: Breathing feels fine. Reports malaise. No CP. Intake & Output 03/28/17 03/29/17 03/30/17 03/31/17 23:59 23:59 23:59 23:59 Intake Total 1100 680 820 10 Balance 1100 680 820 10 Weight 245 lb 6 oz 245 lb 8 oz 244 lb 4 oz 242 lb 8 oz Last Vital Signs Temp Pulse Resp BP Pulse Ox 97.8 F 59 L 24 127/60 97 03/31/17 09:00 03/31/17 09:00 03/31/17 09:00 03/31/17 09:00 03/30/17 19:55 Active Medications Albuterol Sulfate (Ventolin 0.083% Nebulizer Soln -) 1 amp NEB RQID PRN PRN Reason: SHORT OF BREATH/WHEEZING Last Admin: 03/29/17 21:40 Dose: 1 amp Amoxicillin/Clavulanate Potassium (Augmentin - 875mg Tablet) 1 tab PO BID@0800, 1730 [facility] Last Admin: 03/31/17 08:54 Dose: 1 tab Aspirin (Asa -) 81 mg PO DAILY [facility] Last Admin: 03/31/17 10:03 Dose: 81 mg Atorvastatin Calcium (Lipitor -) 20 mg PO HS [facility] Last Admin: 03/30/17 21:10 Dose: 20 mg Benzocaine/Menthol (Cepacol Lozenge -) 1 each MM QID [facility] Last Admin: 03/30/17 21:11 Dose: 1 each Diltiazem HCl (Cardizem Cd -) 120 mg PO DAILY [facility] Last Admin: 03/31/17 10:04 Dose: 120 mg Fenofibric Acid (Trilipix -) 135 mg PO DAILY [facility] Last Admin: 03/31/17 10:05 Dose: 135 mg Fluticasone Propionate (Flonase -) 1 spray NS BID [facility] Last Admin: 03/31/17 11:35 Dose: 1 spray Furosemide (Lasix -) 80 mg PO DAILY [facility] Last Admin: 03/31/17 10:05 Dose: 80 mg Isosorbide Mononitrate (Imdur -) 120 mg PO DAILY [facility] Last Admin: 03/31/17 10:04 Dose: 120 mg Lisinopril (Prinivil) 10 mg PO HS [facility] Last Admin: 03/30/17 21:10 Dose: 10 mg Metoprolol Succinate (Toprol Xl -) 100 mg PO DAILY [facility] Last Admin: 03/31/17 10:04 Dose: 100 mg Oxycodone HCl (Roxicodone -) 30 mg PO HS PRN PRN Reason: PAIN LEVEL 1-5 Last Admin: 03/27/17 22:13 Dose: 30 mg Oxycodone HCl (Roxicodone -) 10 mg PO Q6H PRN PRN Reason: PAIN LEVEL 6-10 Last Admin: 03/31/17 08:54 Dose: 10 mg Pantoprazole Sodium (Protonix -) 20 mg PO DAILY [facility] Last Admin: 03/31/17 10:05 Dose: 20 mg Potassium Chloride (K-Dur -) 20 meq PO DAILY [facility] Prasugrel (Effient -) 5 mg PO HS [facility] Last Admin: 03/30/17 21:11 Dose: 5 mg Prednisone (Deltasone -) 30 mg PO BID [facility] Last Admin: 03/31/17 10:04 Dose: 30 mg Ranitidine HCl (Zantac -) 150 mg PO DAILY [facility] Last Admin: 03/31/17 10:04 Dose: 150 mg Ranolazine (Ranexa -) 1,000 mg PO BID [facility] Last Admin: 03/31/17 10:05 Dose: 1,000 mg Senna/Docusate Sodium (Pericolace -) 2 tablet PO HS PRN PRN Reason: CONSTIPATION Last Admin: 03/30/17 21:13 Dose: 2 tablet Sertraline HCl (Zoloft -) 50 mg PO DAILY [facility] Last Admin: 03/31/17 10:04 Dose: 50 mg Tamsulosin HCl (Flomax -) 0.4 mg PO DAILY@1700 [facility] Last Admin: 03/30/17 17:15 Dose: 0.4 mg Warfarin Sodium (Coumadin -) 2.5 mg PO DAILY@1800 [facility] Last Admin: 03/30/17 17:15 Dose: 2.5 mg Constitutional: Yes: Well Nourished, NAD Eyes: Yes: WNL HENT: Yes: WNL Neck: Yes: WNL Cardiovascular: Yes: Pulse Irregular, S1, S2 Respiratory: Yes: CTA Bilaterally Gastrointestinal: Yes: Normal Bowel Sounds, Soft Extremities: Yes: WNL Edema: No Labs: Laboratory Results - last 24 hr 03/31/17 03/31/17 06:15 06:15 PT with INR 24.50 H INR 2.17 H Sodium 137 Potassium 2.9 L* Chloride 95 L Carbon Dioxide 33 H Anion Gap 9 BUN 35 H D Creatinine 1.0 Random Glucose 141 H Calcium 8.6 Problem List - Problems (1) COPD exacerbation Code(s): J44.1 - CHRONIC OBSTRUCTIVE PULMONARY DISEASE W (ACUTE) EXACERBATION (2) Acute on chronic diastolic (congestive) heart failure Code(s): I50.33 - ACUTE ON CHRONIC DIASTOLIC (CONGESTIVE) HEART FAILURE (3) Chest heaviness Code(s): R07.89 - OTHER CHEST PAIN (4) Dyspnea Code(s): R06.00 - DYSPNEA, UNSPECIFIED Qualifiers: Dyspnea type: orthopnea Qualified Code(s): R06.01 - Orthopnea (5) Obstructive sleep apnea Code(s): G47.33 - OBSTRUCTIVE SLEEP APNEA (ADULT) (PEDIATRIC) (6) Paroxysmal a-fib Code(s): I48.0 - PAROXYSMAL ATRIAL FIBRILLATION (7) SOB (shortness of breath) Code(s): R06.02 - SHORTNESS OF BREATH (8) Atrial fibrillation Code(s): I48.91 - UNSPECIFIED ATRIAL FIBRILLATION (9) CAD (coronary artery disease) Code(s): I25.10 - ATHSCL HEART DISEASE OF [place] CORONARY ARTERY W/O ANG PCTRS (10) Chronic diastolic heart failure Code(s): I50.32 - CHRONIC DIASTOLIC (CONGESTIVE) HEART FAILURE (11) History of coronary artery stent placement Code(s): Z95.5 - PRESENCE OF CORONARY ANGIOPLASTY IMPLANT AND GRAFT (12) Hyperlipidemia Code(s): E78.5 - HYPERLIPIDEMIA, UNSPECIFIED Assessment/Plan IMP DYSPNEA IMPROVING ASHD S/P STENTS X 14 ACUTE ON CHRONIC CHF COPD AFIB OSAS NOT COMPLIANT WITH CPAP HTN HLD + TROPONINS PLAN INHALED BRONCHODILATORS PRN LASIX NO PULMONARY CONTRAINDICATION FOR D/C HOME DR MENDEZ
[2017-03-31 15:46] LABS: ANION GAP 8 (8-16); BLOOD UREA NITROGEN 32 mg/dL (7-18); CALCIUM 8.7 mg/dL (8.5-10.1); CHLORIDE 98 mmol/L (98-107); CO2 33 mmol/L (21-32); CREATININE 1.3 mg/dL (0.7-1.3); GLUCOSE,RANDOM 149 mg/dL (74-106); POTASSIUM 3.5 mmol/L (3.5-5.1); SODIUM 139 mmol/L (136-145)
[2017-03-31] MEDS: TAMSULOSIN HCL 0.4 MG CAP.ER.24H (FP) PO SCH (16:42)
[2017-03-31] MEDS: WARFARIN NA 2.5 MG TABLET (FP) PO SCH (18:02)
[2017-03-31 19:11] VITALS: BP 115/67; PULSE 55; TEMP 98.2
--- NOTE | 2017-03-31 21:53 | PN ---
Progress Note, Physician History of Present Illness: patient doing well no complaints - Objective Vital Signs: Vital Signs Temperature 98.2 F 03/31/17 17:00 Pulse Rate 55 L 03/31/17 17:00 Respiratory Rate 20 03/31/17 17:00 Blood Pressure 115/67 03/31/17 17:00 O2 Sat by Pulse Oximetry (%) 97 03/31/17 09:00 Constitutional: Yes: No Distress, Calm, Obese Eyes: Yes: Conjunctiva Clear HENT: Yes: Atraumatic, Normocephalic Cardiovascular: Yes: Regular Rate and Rhythm Respiratory: Yes: Regular, CTA Bilaterally Gastrointestinal: Yes: Normal Bowel Sounds, Soft Musculoskeletal: Yes: WNL Extremities: Yes: WNL Labs: CBC, BMP 03/30/17 06:55 03/31/17 14:30 INR, PTT INR 2.17 (0.82-1.09) H 03/31/17 06:15 Assessment/Plan Problem List - Problems (1) CAP (community acquired pneumonia) Code(s): J18.9 - PNEUMONIA, UNSPECIFIED ORGANISM Qualifiers: Laterality: left Lung location: lower lobe of lung Qualified Code(s): J18.1 - Lobar pneumonia, unspecified organism (2) COPD exacerbation Code(s): J44.1 - CHRONIC OBSTRUCTIVE PULMONARY DISEASE W (ACUTE) EXACERBATION (3) Chest pain Code(s): R07.9 - CHEST PAIN, UNSPECIFIED Qualifiers: Chest pain type: other chest pain Qualified Code(s): R07.89 - Other chest pain (4) Elevated troponin Code(s): R79.89 - OTHER SPECIFIED ABNORMAL FINDINGS OF BLOOD CHEMISTRY (5) TRACY (acute kidney injury) Code(s): N17.9 - ACUTE KIDNEY FAILURE, UNSPECIFIED (6) Acute on chronic diastolic (congestive) heart failure Code(s): I50.33 - ACUTE ON CHRONIC DIASTOLIC (CONGESTIVE) HEART FAILURE (7) CHF (congestive heart failure) Code(s): I50.9 - HEART FAILURE, UNSPECIFIED (8) Chest heaviness Code(s): R07.89 - OTHER CHEST PAIN (9) Contusion of rib on right side Code(s): S20.211A - CONTUSION OF RIGHT FRONT WALL OF THORAX, INITIAL ENCOUNTER Qualifiers: Encounter type: initial encounter Qualified Code(s): S20.211A - Contusion of right front wall of thorax, initial encounter (10) Dyspnea Code(s): R06.00 - DYSPNEA, UNSPECIFIED Qualifiers: Dyspnea type: orthopnea Qualified Code(s): R06.01 - Orthopnea (11) Epigastric abdominal pain Code(s): R10.13 - EPIGASTRIC PAIN (12) Epistaxis Code(s): R04.0 - EPISTAXIS (13) Hypotension Code(s): I95.9 - HYPOTENSION, UNSPECIFIED (14) LPRD (laryngopharyngeal reflux disease) Code(s): K21.9 - GASTRO-ESOPHAGEAL REFLUX DISEASE WITHOUT ESOPHAGITIS (15) Moderate aortic stenosis Code(s): I35.0 - NONRHEUMATIC AORTIC (VALVE) STENOSIS (16) Myocardial disease Code(s): I51.5 - MYOCARDIAL DEGENERATION (17) Nausea Code(s): R11.0 - NAUSEA (18) Obstructive sleep apnea Code(s): G47.33 - OBSTRUCTIVE SLEEP APNEA (ADULT) (PEDIATRIC) (19) Paroxysmal a-fib Code(s): I48.0 - PAROXYSMAL ATRIAL FIBRILLATION (20) Pleural effusion Code(s): J90 - PLEURAL EFFUSION, NOT ELSEWHERE CLASSIFIED (21) Pneumonia Code(s): J18.9 - PNEUMONIA, UNSPECIFIED ORGANISM (22) Rib fractures Code(s): S22.39XA - FRACTURE OF ONE RIB, UNSP SIDE, INIT FOR CLOS FX Qualifiers: Encounter type: subsequent encounter Rib fracture type: single rib Fracture type: closed Laterality: right Fracture healing: with routine healing Qualified Code(s): S22.31XD - Fracture of one rib, right side, subsequent encounter for fracture with routine healing (23) SOB (shortness of breath) Code(s): R06.02 - SHORTNESS OF BREATH (24) Atrial fibrillation Code(s): I48.91 - UNSPECIFIED ATRIAL FIBRILLATION (25) CAD (coronary artery disease) Code(s): I25.10 - ATHSCL HEART DISEASE OF [place] CORONARY ARTERY W/O ANG PCTRS (26) COPD (chronic obstructive pulmonary disease) Code(s): J44.9 - CHRONIC OBSTRUCTIVE PULMONARY DISEASE, UNSPECIFIED (27) Chronic abdominal pain Code(s): R10.9 - UNSPECIFIED ABDOMINAL PAIN; G89.29 - OTHER CHRONIC PAIN (28) Chronic back pain Code(s): M54.9 - DORSALGIA, UNSPECIFIED; G89.29 - OTHER CHRONIC PAIN (29) Chronic diastolic heart failure Code(s): I50.32 - CHRONIC DIASTOLIC (CONGESTIVE) HEART FAILURE (30) Constipation Code(s): K59.00 - CONSTIPATION, UNSPECIFIED (31) History of coronary artery stent placement Code(s): Z95.5 - PRESENCE OF CORONARY ANGIOPLASTY IMPLANT AND GRAFT (32) Hyperlipidemia Code(s): E78.5 - HYPERLIPIDEMIA, UNSPECIFIED (33) Hypertension Code(s): I10 - ESSENTIAL (PRIMARY) HYPERTENSION plan switched to oral augmentin will continue oral for another 3 days incentive liban rest as per primary team
== END 2017-03-31 19:17 | disposition home or self-care (01) | DRG 193 ==
LOC: JER 09:16 → JERBED 11:32 → J4W 13:51 → OBSVTOIN 21:48 → J4W 03-29 19:50
PROVIDERS: ADMIT Family Medicine; ATTEND Family Medicine
DX: J18.9 Pneumonia, unspecified organism (principal); I50.33 Acute on chronic diastolic (congestive) heart failure; J44.1 Chronic obstructive pulmonary disease with (acute) exacerbation; I45.3 Trifascicular block; I11.0 Hypertensive heart disease with heart failure; I48.91 Unspecified atrial fibrillation; R07.89 Other chest pain; Z79.01 Long term (current) use of anticoagulants; Z95.5 Presence of coronary angioplasty implant and graft; I25.2 Old myocardial infarction; K21.9 Gastro-esophageal reflux disease without esophagitis; Z68.38 Body mass index [BMI] 38.0-38.9, adult; R09.02 Hypoxemia; I48.0 Paroxysmal atrial fibrillation; I25.119 Atherosclerotic heart disease of native coronary artery with unspecified angina pectoris; I35.1 Nonrheumatic aortic (valve) insufficiency; E66.01 Morbid (severe) obesity due to excess calories; G47.33 Obstructive sleep apnea (adult) (pediatric); E78.1 Pure hyperglyceridemia; E03.9 Hypothyroidism, unspecified
CPT/HCPCS: 36415; 71046-TC; 71250-TC; 80048; 80053; 80061; 81003; 82550; 82803; 83036; 83721; 83735; 83880; 84439; 84443; 84484; 85025; 85027; 85610; 86850; 86900; 86901; 87040; 87804; 93005; 93010; 94640; 99284-25; G0378

== ENCOUNTER 2017-06-24 05:01 | Inpatient (IN) | payer OTHER ==
--- NOTE | 2017-06-24 05:04 | PDOC ---
History of Present Illness - General Chief Complaint: Respiratory Distress Stated Complaint: DIFFICULTY BREATHING Time Seen by Provider: 06/24/17 05:02 History Source: Patient, Significant Other - History of Present Illness Initial Comments: 06/24/17 05:14 62 year old male with midsternal chest pain , as per patient woke up with chest pain and difficulty breathing. patient took 3 baby aspirin and 2 tabs nitro with some improvement in pain. denies weakness, diaphoresis, fever/ chills, edema , NV, abdominal pain, headache 06/24/17 05:17 06/24/17 05:21 Beta Mary given by EMS (Core Measure): Yes Beta Mary taken at Home (Core Measure): No Past History - Past Medical History Allergies/Adverse Reactions: Allergies Allergy/AdvReac Type Severity Reaction Status Date / Time levofloxacin [From Levaquin] Allergy Intermediate Swelling Verified 06/24/17 05: 12 Home Medications: Ambulatory Orders Albuterol Sulfate [Proair Respiclick] 90 mcg IH PRN 08/22/16 Aspirin [ASA -] 81 mg PO ACDIN 08/22/16 Diltiazem HCl [Diltiazem 24Hr ER] 120 mg PO DAILY 08/22/16 Fenofibric Acid [Fibricor] 105 mg PO DAILY 08/22/16 Isosorbide Mononitrate [Isosorbide Mononitrate ER] 120 mg PO DAILY 08/22/16 Linaclotide [Linzess] 290 mcg PO BID 08/22/16 Lisinopril 10 mg PO ACDIN 08/22/16 Metoclopramide HCl [Reglan] 10 mg PO PRN 08/22/16 Metoprolol Succinate [Toprol Xl] 100 mg PO DAILY 08/22/16 Nitroglycerin [place] [Nitrolingual [place] -] 1 spray TL PRN 08/22/16 Oxycodone HCl 30 mg PO HS PRN 08/22/16 Oxycodone HCl/Acetaminophen [Percocet 10-325 mg Tablet] 1 each PO BID PRN Pravastatin Sodium [Pravachol -] 80 mg PO HS 08/22/16 Ranitidine HCl [Zantac] 150 mg PO ACDIN 08/22/16 Ranolazine [Ranexa] 1,000 mg PO BID 08/22/16 Tamsulosin HCl [Flomax] 0.4 mg PO ACDIN 08/22/16 Tiotropium Br/Olodaterol HCl [Stiolto Respimat Inhal [place]] 2.5 gm IH BID Beclomethasone Dipropionate [Qvar] 2 puff IH BID 01/16/17 Prasugrel HCl [Effient] 5 mg PO HS 01/16/17 Amiodarone HCl [Cordarone -] 200 mg PO DAILY 03/27/17 Hyoscyamine Sulfate 0.125 mg PO ASDIR PRN 03/27/17 Omeprazole 20 mg PO DAILY 03/27/17 Sertraline HCl 50 mg PO DAILY 03/27/17 Furosemide [Lasix -] 80 mg PO DAILY tablet 03/31/17 Sennosides/Docusate Sodium [Pericolace -] 2 tablet PO HS PRN tablet 03/31/17 Albuterol 2.5/Ipratropium 0.5 [Duoneb -] 1 amp NEB RQID amp 06/28/17 Magnesium Oxide [Mag-Ox -] 400 mg PO BID tablet 06/28/17 Pantoprazole Sodium [Protonix -] 40 mg PO DAILY #30 tablet.ec 06/28/17 Polyethylene Glycol 3350 [Miralax 119 gm Btl -] 17 gm PO DAILY bottle 06/28/17 Potassium Chloride [K-Dur -] 40 meq PO DAILY tablet.er 06/28/17 Sucralfate [Carafate -] 1 gm PO QID tablet 06/28/17 Warfarin Na [Coumadin -] 1 mg PO DAILY@1800 tablet 06/28/17 Anemia: No Asthma: No Cancer: No Cardiac Disorders: Yes (A FIB, [place]) CVA: No COPD: Yes CHF: Yes Dementia: No Diabetes: No GI Disorders: Yes (ACID REFLUX) Disorders: No HTN: Yes Hypercholesterolemia: Yes Liver Disease: No Seizures: No Thyroid Disease: No - Surgical History Abdominal Surgery: No Appendectomy: No Cardiac Surgery: Yes (13 stent placements & CARDIAC ABLIATION 01/2014) Cholecystectomy: No Lung Surgery: No Neurologic Surgery: No Orthopedic Surgery: No - Immunization History Immunization Up to Date: Yes - Suicide/Smoking/Psychosocial Hx Smoking Status: No Smoking History: Never smoked Have you smoked in the past 12 months: No Number of Cigarettes Smoked Daily: 0 If you are a former smoker, when did you quit?: 19 YRS Hx Alcohol Use: No Drug/Substance Use Hx: No Substance Use Type: None Hx Substance Use Treatment: No Cardiac Specific PMH - Complaint Specific PMHX Abdominal Aortic Aneurysm: No Angina: No Cardiac Arrhythmia: No Cardiac Stent: Yes GERD: Yes Pacemaker: No Pulmonary Embolus: No Peripheral Vascular Disease: No Review of Systems - Review of Systems Able to Perform ROS?: Yes Is the patient limited Cuban proficient: No Constitutional: No: Symptoms Reported, See HPI, Chills, Diaphoresis, Fever, Loss of Appetite, Malaise, Night Sweats, Weakness, Weight Stable, Unintentional Wgt. Loss, Unexplained wgt Loss, Other Respiratory: Yes: Shortness of Breath, SOB at Rest. No: Symptoms reported, See HPI, Cough, Orthopnea, SOB with Exertion, Stridor, Wheezing, Productive cough, Hemoptysis, Other Cardiac (ROS): Yes: Chest Pain *Physical Exam - Vital Signs Last Vital Signs Temp Pulse Resp BP Pulse Ox 98.8 F 55 L 18 105/44 100 06/28/17 17:00 06/28/17 17:00 06/28/17 17:00 06/28/17 17:00 06/28/17 07:30 - Physical Exam General Appearance: Yes: Appropriately Dressed Respiratory/Chest: positive: Accessory Muscle Use, Labored Respiration, Rales Cardiovascular: positive: Regular Rhythm, Regular Rate Gastrointestinal/Abdominal: positive: Normal Bowel Sounds, Soft Musculoskeletal: positive: Normal Inspection Extremity: positive: Normal Capillary Refill, Normal Inspection, Normal Range of Motion. negative: Pedal Edema Integumentary: positive: Normal Color, Dry, Warm Neurologic: positive: Fully Oriented, Alert Heart Score/ECG Review - History History: Moderately suspicious - Electrocardiogram EKG: Non specific repolarization disturbance - Age Age: 45-65 - Risk Factors Risk Factors Heart Score: Yes Hx Hypercholesterolemia, Yes Hx Hypertension, Yes Hx Obesity Based on the list above the patient has:: >/=3 risk factors or Hx atherosclerotic disease - ECG Intrepretation Rhythm: Regular Rhythm Comment:: 06/24/17 05:19 NSR 82 bpm right bundle branch block; left anterior fascicular block Qt/QTc 462/539ms ED Treatment Course - LABORATORY CBC & Chemistry Diagram: 06/28/17 06:35 06/28/17 06:35 - ADDITIONAL ORDERS Additional order review: 06/24/17 05:10 RBC 3.66 L D MCV 84.6 MCHC 34.9 RDW 13.8 MPV 7.1 L D Neutrophils % 75.8 Lymphocytes % 12.0 D Monocytes % 9.3 D Eosinophils % 2.4 D Basophils % 0.5 D - RADIOLOGY Radiology Studies Ordered: Category Date Time Status CHEST X-RAY PORTABLE* [RAD] Stat Radiology 06/24/17 05:12 Completed Chest X-Ray Result: Other (mild to moderate pulmonary edema) - Medications Given in the ED: ED Medications Discontinued Medications Generic Name Dose Route Start Last Admin Trade Name Freq PRN Reason Stop Dose Admin Albuterol Sulfate 1 amp 06/24/17 05:49 06/24/17 06:35 Ventolin 0.083% Nebulizer Soln - NEB 06/24/17 05:50 1 amp ONCE ONE Administration Albuterol/Ipratropium 1 amp 06/24/17 12:00 06/28/17 17:00 Duoneb - NEB 1 amp RQID RENY Administration Amiodarone HCl 200 mg 06/24/17 10:00 06/28/17 09:44 Cordarone - PO 200 mg DAILY RENY Administration Aspirin 81 mg 06/24/17 16:30 06/28/17 16:48 Asa - PO 81 mg ACDIN RENY Administration Atorvastatin Calcium 20 mg 06/24/17 22:00 06/27/17 21:53 Lipitor - PO 20 mg HS RENY Administration Diltiazem HCl 120 mg 06/24/17 10:00 06/28/17 09:44 Cardizem Cd - PO 120 mg DAILY RENY Administration Fenofibric Acid 135 mg 06/27/17 10:00 06/28/17 09:43 Trilipix - PO 135 mg DAILY RENY Administration Furosemide 40 mg 06/24/17 05:12 06/24/17 05:33 Lasix Injection - IVPUSH 06/24/17 05:13 40 mg ONCE ONE Administration Furosemide 80 mg 06/24/17 10:00 06/24/17 10:00 Lasix - PO 80 mg DAILY RENY Administration Furosemide 40 mg 06/24/17 14:00 06/25/17 14:07 Lasix Injection - IVPUSH 40 mg BID@0600,1400 RENY Administration Furosemide 40 mg 06/26/17 10:00 06/26/17 09:27 Lasix Injection - IVPUSH 40 mg DAILY RENY Administration Furosemide 40 mg 06/27/17 10:00 06/28/17 09:44 Lasix - PO 40 mg DAILY [facility] Administration Potassium Chloride 30 meq/ 315 mls @ 105 mls/hr 06/25/17 14:45 06/25/17 15:28 Sodium Chloride IVPB 06/25/17 17:44 105 mls/hr ONCE ONE Administration Isosorbide Mononitrate 120 mg 06/24/17 10:00 06/28/17 09:43 Imdur - PO 120 mg DAILY RENY Administration Lisinopril 10 mg 06/24/17 16:30 06/28/17 16:48 Prinivil PO 10 mg ACDIN [facility] Administration Magnesium Oxide 400 mg 06/24/17 07:12 06/24/17 08:00 Mag-Ox - PO 06/24/17 07:13 400 mg ONCE ONE Administration Magnesium Oxide 400 mg 06/25/17 22:00 06/28/17 09:44 Mag-Ox - PO 400 mg BID [facility] Administration Metoprolol Succinate 100 mg 06/24/17 10:00 06/28/17 09:43 Toprol Xl - PO 100 mg DAILY [facility] Administration Morphine Sulfate 2 mg 06/24/17 05:49 06/24/17 06:02 Morphine Injection - IVPUSH 06/24/17 05:50 2 mg ONCE ONE Administration Oxycodone HCl 10 mg 06/24/17 08:42 06/28/17 18:27 Roxicodone - PO 10 mg Q6H PRN Administration PAIN LEVEL 6-10 Oxycodone HCl 30 mg 06/24/17 08:40 06/27/17 21:54 Roxicodone - PO 30 mg HS PRN Administration BACK PAIN Pantoprazole Sodium 40 mg 06/24/17 10:00 06/28/17 09:44 Protonix - PO 40 mg DAILY [facility] Administration Polyethylene Glycol 17 gm 06/27/17 10:00 06/28/17 09:46 Miralax (For Daily Use) - PO 17 grams DAILY [facility] Administration Potassium Chloride 40 meq 06/24/17 07:12 06/24/17 08:00 K-Dur - PO 06/24/17 07:13 40 meq ONCE ONE Administration Potassium Chloride 20 meq 06/24/17 10:00 06/26/17 09:28 K-Dur - PO 20 meq BID RENY Administration Potassium Chloride 40 meq 06/25/17 11:15 06/25/17 11:41 K-Dur - PO 06/25/17 11:16 40 meq ONCE ONE Administration Potassium Chloride 40 meq 06/26/17 18:00 06/28/17 09:43 K-Dur - PO 40 meq DAILY RENY Administration Prasugrel 5 mg 06/24/17 22:00 06/27/17 21:53 Effient - PO 5 mg HS RENY Administration Ranitidine HCl 150 mg 06/24/17 16:30 06/28/17 16:48 Zantac - PO 150 mg ACDIN RENY Administration Ranolazine 1,000 mg 06/24/17 10:00 06/28/17 09:43 Ranexa - PO 1,000 mg BID RENY Administration Sertraline HCl 50 mg 06/24/17 10:00 06/28/17 09:43 Zoloft - PO 50 mg DAILY RENY Administration Sucralfate 1 gm 06/28/17 10:00 06/28/17 17:59 Carafate - PO 1 gm QID RENY Administration Tamsulosin HCl 0.4 mg 06/24/17 16:30 06/28/17 16:48 Flomax - PO 0.4 mg ACDIN RENY Administration Warfarin Sodium 1 mg 06/27/17 18:00 06/28/17 17:59 Coumadin - PO 1 mg DAILY@1800 RENY Administration Progress Note - Progress Note Progress Note: A: CHF exacerbation; chest pain P: cbc cmp cardiac EKG chest xray Pain control o2 support lasix Medical Decision Making - Medical Decision Making 06/24/17 06:51 patient with improved respiratory status. maintain 02 sat 96-98% on 2 L NC. patient to be admitted under hospitalist service. *DC/Admit/Observation/Transfer Diagnosis at time of Disposition: Acute on chronic diastolic (congestive) heart failure COPD (chronic obstructive pulmonary disease) Qualifiers: COPD type: unspecified COPD Qualified Code(s): J44.9 - Chronic obstructive pulmonary disease, unspecified Chest pain Qualifiers: Chest pain type: unspecified Qualified Code(s): R07.9 - Chest pain, unspecified - Discharge Dispostion Disposition: HOME Condition at time of disposition: Improved Admit: Yes - Prescriptions - Referrals - Patient Instructions - Post Discharge Activity
[2017-06-24] MEDS ORDERED: FUROSEMIDE 40 MG/4 ML INJECTABLE VIAL IVPUSH ONE (05:12)
[2017-06-24 05:23] LABS: BASO % 0.5 % (0-2.0); EOS % 2.4 % (0-4.5); HEMATOCRIT 30.9 % (35.4-49); HEMOGLOBIN 10.8 GM/dL (11.7-16.9); MCH 29.5 pg (25.7-33.7); MCHC 34.9 g/dl (32.0-35.9); MEAN CELL VOLUME 84.6 fl (80-96); MEAN PLT VOLUME 7.1 fl (7.5-11.1); MONO % 9.3 % (3.8-10.2); NEUT % 75.8 % (42.8-82.8); PLATELET COUNT 269 K/MM3 (134-434); RBC 3.66 M/mm3 (4.00-5.60); RDW 13.8 % (11.9-15.9)
[2017-06-24] MEDS ORDERED: FUROSEMIDE 40 MG/4 ML INJECTABLE VIAL ONE (05:29)
[2017-06-24] MEDS ORDERED: ALBUTEROL SO4 0.083% IH SOL 2.5 MG/3 ML VIAL.NEB. NEB ONE ×2 (05:49→06:23)
[2017-06-24] MEDS ORDERED: morphine CARPU-JECT 2 MG/1 ML DISP.SYRIN IVPUSH ONE (05:49)
[2017-06-24] MEDS ORDERED: morphine SULFATE 4 MG/ML VIAL ONE (05:50)
[2017-06-24 06:07] LABS: PROTHROMBIN TIME (PATIENT) 82.5 SEC (9.7-13.0)
[2017-06-24 06:09] LABS: URINE APPEARANCE CLEAR; URINE BILIRUBIN NEGATIVE (<2.0 mg/dL); URINE BLOOD NEGATIVE (NEGATIVE); URINE COLOR LTYELLOW; URINE GLUCOSE (UA) NEGATIVE (NEGATIVE); URINE KETONE NEGATIVE (NEGATIVE); URINE LEUK ESTERASE NEGATIVE (NEGATIVE); URINE NITRITE NEGATIVE (NEGATIVE); URINE PROTEIN NEGATIVE (NEGATIVE); URINE UROBILINOGEN 4.0 E.U/dl mg/dL (0.2-1.0)
[2017-06-24 06:09] LABS: INR 7.3 (0.82-1.09)
[2017-06-24 06:12] LABS: ALBUMIN 3.4 g/dl (3.4-5.0); ANION GAP 6 (8-16); BILIRUBIN,TOTAL 0.7 mg/dL (0.2-1.0); BLOOD UREA NITROGEN 14 mg/dL (7-18); CALCIUM 8.4 mg/dL (8.5-10.1); CHLORIDE 105 mmol/L (98-107); CO2 30 mmol/L (21-32); CREATININE 0.7 mg/dL (0.7-1.3); GLUCOSE,RANDOM 106 mg/dL (74-106); MAGNESIUM 1.7 mg/dL (1.8-2.4); POTASSIUM 3.1 mmol/L (3.5-5.1); SGOT/AST 17 U/L (15-37); SGPT/ALT 15 U/L (12-78); SODIUM 141 mmol/L (136-145); TOT PROT 6.8 g/dl (6.4-8.2)
[2017-06-24 06:15] LABS: ALK PHOS 35 U/L (45-117); N-TERMINAL BNP 1770.38 pg/ml (5-125)
[2017-06-24] MEDS ORDERED: POTASSIUM CHLORIDE TABS 20 MEQ TABLET.ER (FP) PO ONE ×2 (07:12→07:36)
[2017-06-24] MEDS ORDERED: MAGNESIUM OXIDE 400 MG TABLET (FP) PO ONE (07:12)
[2017-06-24] MEDS ORDERED: MAGNESIUM OXIDE 400 MG TABLET (FP) ONE (07:37)
[2017-06-24] MEDS ORDERED: SENNOSIDES/DOCUSATE COMBO (SENNA PLUS) TABLET (UD) PO PRN (08:40)
[2017-06-24] MEDS ORDERED: SUCRALFATE 1 GM TABLET (FP) PO PRN (08:40)
--- NOTE | 2017-06-24 09:42 | EKG ---
Test Reason : Blood Pressure : / mmHG Vent. Rate : 082 BPM Atrial Rate : 082 BPM P-R Int : 206 ms QRS Dur : 158 ms QT Int : 462 ms P-R-T Axes : 073 -85 033 degrees QTc Int : 539 ms NORMAL SINUS RHYTHM RIGHT BUNDLE BRANCH BLOCK LEFT ANTERIOR FASCICULAR BLOCK BIFASCICULAR BLOCK LATERAL INFARCT , AGE UNDETERMINED Confirmed by DEVYN GUADALUPE, ALEA ([id number]) on 06/24/2017 9:41:45 AM Referred By: Confirmed By:ALEA SHEPARD MD
[2017-06-24] MEDS: PANTOPRAZOLE 40 MG TABLET (FP) PO SCH (10:00)
[2017-06-24] MEDS ORDERED: FENOFIBRIC ACID PO SCH (10:00)
[2017-06-24] MEDS: RANOLAZINE E.R. 1,000 MG TABLET (FP) PO SCH ×2 (10:00→21:18)
[2017-06-24] MEDS: AMIODARONE HCL 200 MG TABLET (FP) PO SCH (10:00)
[2017-06-24] MEDS ORDERED: BECLOMETHASONE DIPROPIONATE IH SCH (10:00)
[2017-06-24] MEDS ORDERED: FUROSEMIDE 40 MG TABLET (FP) PO SCH (10:00)
[2017-06-24] MEDS ORDERED: PATIENT'S OWN MEDICATION (NON-FORMULARY) (Linaclotide [Linzess] 290 MCG) PO SCH (10:00)
[2017-06-24] MEDS: ISOSORBIDE MONONITRATE 60 MG TAB.SR.24H (FP) PO SCH (10:00)
[2017-06-24] MEDS: SERTRALINE HCL 50 MG TABLET (FP) PO SCH (10:01)
[2017-06-24] MEDS: POTASSIUM CHLORIDE TABS 20 MEQ TABLET.ER (FP) PO SCH ×2 (10:01→21:18)
--- NOTE | 2017-06-24 10:02 | HP ---
Admitting History and Physical - Admission History of Present Illness: 62 year old male with midsternal chest pain , as per patient woke up with chest pain and difficulty breathing. patient took 3 baby aspirin and 2 tabs nitro with some improvement in pain. Patient had second episode and became diaphoretic and came into the ER. denies weakness, fever/ chills, edema , NV, abdominal pain, headache - Past Medical History Cardiovascular: Yes: AFIB, Aortic Insufficiency, Aortic Stenosis, CAD, CHF ( chronic diastolic), HTN, Hyperlipdemia, VA, Other (SVT) Pulmonary: Yes: COPD, Sleep Apnea Gastrointestinal: Yes: GERD Psych: Yes: Anxiety, Depression Musculoskeletal: Yes: Chronic low back pain - Past Surgical History Past Surgical History: Yes: Stent (Multiple cardiac stents; pulmonary vein ablation Rx x 2 for AF/flutter) - Smoking History Smoking history: Never smoked Have you smoked in the past 12 months: No Aproximately how many cigarettes per day: 0 If you are a former smoker, when did you quit?: 19 YRS - Alcohol/Substance Use Hx Alcohol Use: No History of Substance Use: reports: None - Social History ADL: Independent History of Recent Travel: No Home Medications - Allergies Allergies/Adverse Reactions: Allergies Allergy/AdvReac Type Severity Reaction Status Date / Time levofloxacin [From Levaquin] Allergy Intermediate Swelling Verified 06/24/17 05: 12 - Home Medications Home Medications: Ambulatory Orders Albuterol Sulfate [Proair Respiclick] 90 mcg IH PRN 08/22/16 Aspirin [ASA -] 81 mg PO ACDIN 08/22/16 Diltiazem HCl [Diltiazem 24Hr ER] 120 mg PO DAILY 08/22/16 Fenofibric Acid [Fibricor] 105 mg PO DAILY 08/22/16 Isosorbide Mononitrate [Isosorbide Mononitrate ER] 120 mg PO DAILY 08/22/16 Levalbuterol HCl 1.25 mg IH TID 08/22/16 Linaclotide [Linzess] 290 mcg PO BID 08/22/16 Lisinopril 10 mg PO ACDIN 08/22/16 Metoclopramide HCl [Reglan] 10 mg PO PRN 08/22/16 Metoprolol Succinate [Toprol Xl] 100 mg PO DAILY 08/22/16 Nitroglycerin [place] [Nitrolingual [place] -] 1 spray TL PRN 08/22/16 Oxycodone HCl 30 mg PO HS PRN 08/22/16 Oxycodone HCl/Acetaminophen [Percocet 10-325 mg Tablet] 1 each PO BID PRN Pravastatin Sodium [Pravachol -] 80 mg PO HS 08/22/16 Ranitidine HCl [Zantac] 150 mg PO ACDIN 08/22/16 Ranolazine [Ranexa] 1,000 mg PO BID 08/22/16 Sucralfate [Carafate -] 1 gm PO DAILY PRN 08/22/16 Tamsulosin HCl [Flomax] 0.4 mg PO ACDIN 08/22/16 Tiotropium Br/Olodaterol HCl [Stiolto Respimat Inhal [place]] 2.5 gm IH BID Beclomethasone Dipropionate [Qvar] 2 puff IH BID 01/16/17 Mometasone Furoate 17 gm NS PRN PRN 01/16/17 Prasugrel HCl [Effient] 5 mg PO HS 01/16/17 Amiodarone HCl [Cordarone -] 200 mg PO DAILY 03/27/17 Hyoscyamine Sulfate 0.125 mg PO ASDIR PRN 03/27/17 Omeprazole 20 mg PO DAILY 03/27/17 Sertraline HCl 50 mg PO DAILY 03/27/17 Furosemide [Lasix -] 80 mg PO DAILY tablet 03/31/17 Potassium Chloride [K-Dur -] 20 meq PO DAILY #30 tablet.er 03/31/17 Sennosides/Docusate Sodium [Pericolace -] 2 tablet PO HS PRN tablet 03/31/17 Warfarin Na [Coumadin -] 2.5 mg PO DAILY@1800 #30 tablet 03/31/17 Family Disease History - Family Disease History Family Disease History: Heart Disease: Brother Review of Systems - Review of Systems Constitutional: reports: Diaphoresis Cardiovascular: reports: Chest Pain, Shortness of Breath Respiratory: reports: SOB Gastrointestinal: reports: No Symptoms Genitourinary: reports: No Symptoms Neurological: reports: No Symptoms Physical Examination Vital Signs: Vital Signs Temperature 99 F 06/24/17 08:05 Pulse Rate 86 06/24/17 08:05 Respiratory Rate 24 06/24/17 08:05 Blood Pressure 143/80 06/24/17 08:05 O2 Sat by Pulse Oximetry (%) 98 06/24/17 08:05 Cardiovascular: Yes: Murmur, S1, S2 Respiratory: Yes: Regular, CTA Bilaterally, On Nasal O2 Gastrointestinal: Yes: Normal Bowel Sounds, Soft. No: Tenderness Edema: No Neurological: Yes: Alert, Oriented Labs: CBC, BMP 06/24/17 05:10 06/24/17 05:10 Imaging - Results Chest X-ray: Report Reviewed Problem List - Problems (1) Acute coronary syndrome Assessment/Plan: -FOLLOW CE -CONTINUE WITH MEDS -CARDIOLOGY CONSULT Code(s): I24.9 - ACUTE ISCHEMIC HEART DISEASE, UNSPECIFIED (2) Chest pain Code(s): R07.9 - CHEST PAIN, UNSPECIFIED Qualifiers: Chest pain type: other chest pain Qualified Code(s): R07.89 - Other chest pain; R07.8 - Other chest pain (3) COPD (chronic obstructive pulmonary disease) Assessment/Plan: -NEBS -STABLE Code(s): J44.9 - CHRONIC OBSTRUCTIVE PULMONARY DISEASE, UNSPECIFIED Qualifiers: COPD type: COPD with acute exacerbation Qualified Code(s): J44.1 - Chronic obstructive pulmonary disease with (acute) exacerbation (4) Aortic stenosis Assessment/Plan: -PER CARDIO -CHECK LAST ECHO Code(s): I35.0 - NONRHEUMATIC AORTIC (VALVE) STENOSIS (5) CHF (congestive heart failure) Assessment/Plan: -NO EVIDENCE OF FAILURE -FOLLOW Code(s): I50.9 - HEART FAILURE, UNSPECIFIED (6) Elevated troponin Assessment/Plan: -FOLLOW TREND Code(s): R79.89 - OTHER SPECIFIED ABNORMAL FINDINGS OF BLOOD CHEMISTRY (7) Atrial fibrillation Assessment/Plan: -FOLLOW INR -HOLD COUMADIN -RATE CONTROLLED -TELE Code(s): I48.91 - UNSPECIFIED ATRIAL FIBRILLATION
--- NOTE | 2017-06-24 10:47 | CON.CARD ---
Consult Consult Specialty:: Cardiology - History of Present Illness History of Present Illness: 62 year old male with midsternal chest pain , as per patient woke up with chest pain and difficulty breathing. patient took 3 baby aspirin and 2 tabs nitro with some improvement in pain. Patient had second episode and became diaphoretic and came into the ER. denies weakness, fever/ chills, edema , NV, abdominal pain, headache - Past Medical History Cardiovascular: Yes: AFIB, Aortic Insufficiency, Aortic Stenosis, CAD, CHF ( chronic diastolic), HTN, Hyperlipdemia, MA, Other (SVT) Pulmonary: Yes: COPD, Sleep Apnea Gastrointestinal: Yes: GERD Psych: Yes: Anxiety, Depression Musculoskeletal: Yes: Chronic low back pain PMH s/p multiple coronary stents s/p PTCA of distal OM1 (12/24/10) s/p pulmonary vein isolation procedures (ablation) x 2 for Atrial Fibrillation Cardiac [facility] 01-17-09 Coronary Angi[facility] 11-04-09 Cardiac [facility] 12-31-09 Cardiac Cath [facility] 06-01-10 Cardiac Cath [facility] 06-22-10 Cardiac Cath [facility] 12-24-10 Cardiac [facility] 03-17-12 Cardiac Cath [facility] 05-11-12 Cardiac Surgery 06-01-12 Cardiac Cath [facility] 03-28-15 Cardiac Cath [facility] 03-28-15 Cardiac Cath [facility] 03-12-16 Ongoing medical problems Medical history: angina pectoris obstructive sleep apnea Anxiety Atrial fibrillation-->ablation Rx CAD: s/p multiple PCIs; the latest 12/08: patent mid LAD and RPDA prior stents; PTCA of distal OM1; latest angiograms 04/15 and 03/16: non-obstructive CAD Congestive heart failure (diastolic) COPD Hypercholesterolemia Hypertension Moderate aortic regurgitation Obesity s/p pulmonary vein ablation x 2 for PAF, most recently at [facility] (followed by Dr. Fam Pollock) - History Source History Provided By: Patient, Medical Record - Past Medical History Cardio/Vascular: Yes: AFIB, Aortic Insufficiency, Aortic Stenosis, CAD, CHF ( chronic diastolic), HTN, Hyperlipdemia, MA, Other (SVT) Pulmonary: Yes: COPD, Sleep Apnea Gastrointestinal: Yes: GERD Psych: Yes: Anxiety, Depression Musculoskeletal: Yes: Chronic low back pain - Past Surgical History Past Surgical History: Yes: Stent (Multiple cardiac stents; pulmonary vein ablation Rx x 2 for AF/flutter) - Alcohol/Substance Use Hx Alcohol Use: No History of Substance Use: reports: None - Smoking History Smoking history: Never smoked Have you smoked in the past 12 months: No Aproximately how many cigarettes per day: 0 If you are a former smoker, when did you quit?: 19 YRS - Social History Usual Living Arrangement: With Spouse ADL: Independent History of Recent Travel: No Home Medications - Allergies Allergies/Adverse Reactions: Allergies Allergy/AdvReac Type Severity Reaction Status Date / Time levofloxacin [From Levaquin] Allergy Intermediate Swelling Verified 06/24/17 05: 12 - Home Medications Home Medications: Ambulatory Orders Albuterol Sulfate [Proair Respiclick] 90 mcg IH PRN 08/22/16 Aspirin [ASA -] 81 mg PO ACDIN 08/22/16 Diltiazem HCl [Diltiazem 24Hr ER] 120 mg PO DAILY 08/22/16 Fenofibric Acid [Fibricor] 105 mg PO DAILY 08/22/16 Isosorbide Mononitrate [Isosorbide Mononitrate ER] 120 mg PO DAILY 08/22/16 Levalbuterol HCl 1.25 mg IH TID 08/22/16 Linaclotide [Linzess] 290 mcg PO BID 08/22/16 Lisinopril 10 mg PO ACDIN 08/22/16 Metoclopramide HCl [Reglan] 10 mg PO PRN 08/22/16 Metoprolol Succinate [Toprol Xl] 100 mg PO DAILY 08/22/16 Nitroglycerin [place] [Nitrolingual [place] -] 1 spray TL PRN 08/22/16 Oxycodone HCl 30 mg PO HS PRN 08/22/16 Oxycodone HCl/Acetaminophen [Percocet 10-325 mg Tablet] 1 each PO BID PRN Pravastatin Sodium [Pravachol -] 80 mg PO HS 08/22/16 Ranitidine HCl [Zantac] 150 mg PO ACDIN 08/22/16 Ranolazine [Ranexa] 1,000 mg PO BID 08/22/16 Sucralfate [Carafate -] 1 gm PO DAILY PRN 08/22/16 Tamsulosin HCl [Flomax] 0.4 mg PO ACDIN 08/22/16 Tiotropium Br/Olodaterol HCl [Stiolto Respimat Inhal [place]] 2.5 gm IH BID Beclomethasone Dipropionate [Qvar] 2 puff IH BID 01/16/17 Mometasone Furoate 17 gm NS PRN PRN 01/16/17 Prasugrel HCl [Effient] 5 mg PO HS 01/16/17 Amiodarone HCl [Cordarone -] 200 mg PO DAILY 03/27/17 Hyoscyamine Sulfate 0.125 mg PO ASDIR PRN 03/27/17 Omeprazole 20 mg PO DAILY 03/27/17 Sertraline HCl 50 mg PO DAILY 03/27/17 Furosemide [Lasix -] 80 mg PO DAILY tablet 03/31/17 Potassium Chloride [K-Dur -] 20 meq PO DAILY #30 tablet.er 03/31/17 Sennosides/Docusate Sodium [Pericolace -] 2 tablet PO HS PRN tablet 03/31/17 Warfarin Na [Coumadin -] 2.5 mg PO DAILY@1800 #30 tablet 03/31/17 Family Disease History - Family Disease History Family Disease History: Heart Disease: Brother Review of Systems - Review of Systems Constitutional: reports: No Symptoms Eyes: reports: No Symptoms HENT: reports: No Symptoms Neck: reports: No Symptoms Cardiovascular: reports: Shortness of Breath Gastrointestinal: reports: No Symptoms Genitourinary: reports: No Symptoms Breasts: reports: No Symptoms Reported Musculoskeletal: reports: No Symptoms Integumentary: reports: No Symptoms Neurological: reports: No Symptoms Endocrine: reports: No Symptoms Hematology/Lymphatic: reports: No Symptoms Psychiatric: reports: No Symptoms Vital Signs: Vital Signs Temperature 99 F 06/24/17 08:05 Pulse Rate 86 06/24/17 08:05 Respiratory Rate 24 06/24/17 08:05 Blood Pressure 143/80 06/24/17 08:05 O2 Sat by Pulse Oximetry (%) 98 06/24/17 08:05 Constitutional: Yes: Well Nourished, No Distress, Calm Eyes: Yes: WNL, Conjunctiva Clear, EOM Intact HENT: Yes: WNL, Atraumatic, Normocephalic Neck: Yes: WNL, Supple, Trachea Midline Respiratory: Yes: WNL, Regular, CTA Bilaterally Gastrointestinal: Yes: WNL, Normal Bowel Sounds Renal/: Yes: WNL Cardiovascular: Yes: WNL, Regular Rate and Rhythm Musculoskeletal: Yes: WNL Extremities: Yes: WNL Integumentary: Yes: WNL Neurological: Yes: WNL, Alert, Oriented ...Motor Strength: WNL Psychiatric: Yes: WNL, Alert, Oriented - Other Data Labs, Other Data: CBC, BMP 06/24/17 05:10 06/24/17 05:10 INR, PTT INR 7.30 (0.82-1.09) H* D 06/24/17 05:10 Troponin, BNP 06/24/17 06/24/17 05:10 09:15 Troponin I 0.06 H 0.07 H B-Natriuretic Peptide 1770.38 H Troponin, BNP 06/24/17 06/24/17 05:10 09:15 Troponin I 0.06 H 0.07 H B-Natriuretic Peptide 1770.38 H Imaging - Results Chest X-ray: Image Reviewed (cm no i/e) EKG: Image Reviewed (sr bifascicular block) Problem List - Problems (1) Acute coronary syndrome Code(s): I24.9 - ACUTE ISCHEMIC HEART DISEASE, UNSPECIFIED (2) Acute on chronic diastolic (congestive) heart failure Code(s): I50.33 - ACUTE ON CHRONIC DIASTOLIC (CONGESTIVE) HEART FAILURE (3) Chest pain Code(s): R07.9 - CHEST PAIN, UNSPECIFIED Qualifiers: Chest pain type: other chest pain Qualified Code(s): R07.89 - Other chest pain; R07.8 - Other chest pain (4) COPD (chronic obstructive pulmonary disease) Code(s): J44.9 - CHRONIC OBSTRUCTIVE PULMONARY DISEASE, UNSPECIFIED Qualifiers: COPD type: COPD with acute exacerbation Qualified Code(s): J44.1 - Chronic obstructive pulmonary disease with (acute) exacerbation (5) TRACY (acute kidney injury) Code(s): N17.9 - ACUTE KIDNEY FAILURE, UNSPECIFIED (6) Aortic stenosis Code(s): I35.0 - NONRHEUMATIC AORTIC (VALVE) STENOSIS (7) Bifascicular bundle branch block Code(s): I45.2 - BIFASCICULAR BLOCK (8) CAP (community acquired pneumonia) Code(s): J18.9 - PNEUMONIA, UNSPECIFIED ORGANISM Qualifiers: Laterality: left Lung location: lower lobe of lung Qualified Code(s): J18.1 - Lobar pneumonia, unspecified organism (9) CHF (congestive heart failure) Code(s): I50.9 - HEART FAILURE, UNSPECIFIED (10) COPD exacerbation Code(s): J44.1 - CHRONIC OBSTRUCTIVE PULMONARY DISEASE W (ACUTE) EXACERBATION (11) Chest heaviness Code(s): R07.89 - OTHER CHEST PAIN (12) Contusion of rib on right side Code(s): S20.211A - CONTUSION OF RIGHT FRONT WALL OF THORAX, INITIAL ENCOUNTER Qualifiers: Encounter type: initial encounter Qualified Code(s): S20.211A - Contusion of right front wall of thorax, initial encounter (13) Dyspnea Code(s): R06.00 - DYSPNEA, UNSPECIFIED Qualifiers: Dyspnea type: orthopnea Qualified Code(s): R06.01 - Orthopnea (14) Elevated troponin Code(s): R79.89 - OTHER SPECIFIED ABNORMAL FINDINGS OF BLOOD CHEMISTRY (15) Epigastric abdominal pain Code(s): R10.13 - EPIGASTRIC PAIN (16) Epistaxis Code(s): R04.0 - EPISTAXIS (17) Hypertriglyceridemia Code(s): E78.1 - PURE HYPERGLYCERIDEMIA (18) Hypotension Code(s): I95.9 - HYPOTENSION, UNSPECIFIED (19) Hypothyroid Code(s): E03.9 - HYPOTHYROIDISM, UNSPECIFIED (20) LPRD (laryngopharyngeal reflux disease) Code(s): K21.9 - GASTRO-ESOPHAGEAL REFLUX DISEASE WITHOUT ESOPHAGITIS (21) Moderate aortic stenosis Code(s): I35.0 - NONRHEUMATIC AORTIC (VALVE) STENOSIS (22) Myocardial disease Code(s): I51.5 - MYOCARDIAL DEGENERATION (23) Nausea Code(s): R11.0 - NAUSEA (24) Obesity Code(s): E66.9 - OBESITY, UNSPECIFIED (25) Obstructive sleep apnea Code(s): G47.33 - OBSTRUCTIVE SLEEP APNEA (ADULT) (PEDIATRIC) (26) Paroxysmal a-fib Code(s): I48.0 - PAROXYSMAL ATRIAL FIBRILLATION (27) Pleural effusion Code(s): J90 - PLEURAL EFFUSION, NOT ELSEWHERE CLASSIFIED (28) Pneumonia Code(s): J18.9 - PNEUMONIA, UNSPECIFIED ORGANISM (29) Presence of stent in coronary artery in patient with coronary artery disease Code(s): I25.10 - ATHSCL HEART DISEASE OF [place] CORONARY ARTERY W/O ANG PCTRS; Z95.5 - PRESENCE OF CORONARY ANGIOPLASTY IMPLANT AND GRAFT (30) Rib fractures Code(s): S22.39XA - FRACTURE OF ONE RIB, UNSP SIDE, INIT FOR CLOS FX Qualifiers: Encounter type: subsequent encounter Rib fracture type: single rib Fracture type: closed Laterality: right Fracture healing: with routine healing Qualified Code(s): S22.31XD - Fracture of one rib, right side, subsequent encounter for fracture with routine healing (31) SOB (shortness of breath) Code(s): R06.02 - SHORTNESS OF BREATH (32) Sepsis Code(s): A41.9 - SEPSIS, UNSPECIFIED ORGANISM (33) Atrial fibrillation Code(s): I48.91 - UNSPECIFIED ATRIAL FIBRILLATION (34) CAD (coronary artery disease) Code(s): I25.10 - ATHSCL HEART DISEASE OF [place] CORONARY ARTERY W/O ANG PCTRS (35) Chronic abdominal pain Code(s): R10.9 - UNSPECIFIED ABDOMINAL PAIN; G89.29 - OTHER CHRONIC PAIN (36) Chronic back pain Code(s): M54.9 - DORSALGIA, UNSPECIFIED; G89.29 - OTHER CHRONIC PAIN (37) Chronic diastolic heart failure Code(s): I50.32 - CHRONIC DIASTOLIC (CONGESTIVE) HEART FAILURE (38) Constipation Code(s): K59.00 - CONSTIPATION, UNSPECIFIED (39) History of coronary artery stent placement Code(s): Z95.5 - PRESENCE OF CORONARY ANGIOPLASTY IMPLANT AND GRAFT (40) Hyperlipidemia Code(s): E78.5 - HYPERLIPIDEMIA, UNSPECIFIED (41) Hypertension Code(s): I10 - ESSENTIAL (PRIMARY) HYPERTENSION Assessment/Plan decompensated CHF angina pectoris obstructive sleep apnea Anxiety Atrial fibrillation-->ablation Rx CAD: s/p multiple PCIs; the latest 12/08: patent mid LAD and RPDA prior stents; PTCA of distal OM1; latest angiograms 04/15 and 03/16: non-obstructive CAD Congestive heart failure (diastolic) COPD Hypercholesterolemia Hypertension Moderate aortic regurgitation Obesity s/p pulmonary vein ablation x 2 for PAF, most recently at [facility] (followed by Dr. Fam Pollock) doubt primary ACS since tni's borderline and INR 7.3 most likely decompensated CHF - patient states his cp feels more "like SOB" Plan; telemetry DAPT IV lasix supplement K hold coumadin will f/u
[2017-06-24] MEDS: ALBUTEROL SO4 2.5/IPRATROPIUM 0.5 INH SOL 3 ML VIAL.NEB. NEB SCH ×3 (12:00→20:25)
--- NOTE | 2017-06-24 12:35 | PN ---
Progress Note (short form) - Note Progress Note: PULMONARY CONSULTATION DICTATED 06/24/17 IMP ACUTE ON CHRONIC CHF ACS + TROPONINS COPD ASHD S/P MULTIPLE STENTS AFIB S/P ABLATION HTN OSAS NOT ON CPAP + TROPONINS OBESITY AORTIC STENOSIS PARK LASIX O2 INHALED BRONCHODILATORS TREND TROPONIN DAILY WTS F/U CHEST X-RAYS DR MIRANDA Problem List - Problems (1) Acute coronary syndrome Code(s): I24.9 - ACUTE ISCHEMIC HEART DISEASE, UNSPECIFIED (2) Acute on chronic diastolic (congestive) heart failure Code(s): I50.33 - ACUTE ON CHRONIC DIASTOLIC (CONGESTIVE) HEART FAILURE (3) Chest pain Code(s): R07.9 - CHEST PAIN, UNSPECIFIED Qualifiers: Chest pain type: other chest pain Qualified Code(s): R07.89 - Other chest pain; R07.8 - Other chest pain (4) COPD (chronic obstructive pulmonary disease) Code(s): J44.9 - CHRONIC OBSTRUCTIVE PULMONARY DISEASE, UNSPECIFIED Qualifiers: COPD type: unspecified COPD Qualified Code(s): J44.9 - Chronic obstructive pulmonary disease, unspecified (5) Aortic stenosis Code(s): I35.0 - NONRHEUMATIC AORTIC (VALVE) STENOSIS (6) Elevated troponin Code(s): R79.89 - OTHER SPECIFIED ABNORMAL FINDINGS OF BLOOD CHEMISTRY (7) Obesity Code(s): E66.9 - OBESITY, UNSPECIFIED (8) Obstructive sleep apnea Code(s): G47.33 - OBSTRUCTIVE SLEEP APNEA (ADULT) (PEDIATRIC) (9) SOB (shortness of breath) Code(s): R06.02 - SHORTNESS OF BREATH (10) Atrial fibrillation Code(s): I48.91 - UNSPECIFIED ATRIAL FIBRILLATION (11) History of coronary artery stent placement Code(s): Z95.5 - PRESENCE OF CORONARY ANGIOPLASTY IMPLANT AND GRAFT
[2017-06-24] MEDS: oxyCODONE HCL 5 MG TABLET PO PRN ×2 (13:07→18:55)
--- NOTE | 2017-06-24 13:54 | CONS ---
DATE OF CONSULTATION: 06/24/2017 PULMONARY CONSULTATION REFERRING PHYSICIAN: Mike Boland MD HISTORY OF PRESENT ILLNESS: The patient is a 62-year-old white male known to me from previous hospitalizations and our office who has an extensive past medical history that includes ASHD, status post multiple stents; atrial fibrillation, status post pulmonary vein ablation x2; atrial flutter; obstructive sleep apnea, not on CPAP , cannot tolerate; COPD; GERD; congestive heart failure; anxiety; chronic back pain; aortic stenosis; aortic insufficiency; chronic diastolic heart failure; hypertension; hyperlipidemia; nonsmoker, admitted to [facility] earlier today with complaint of sudden onset of midsternal chest pain, sharp in character, associated with shortness of breath. Patient states he was sitting at home, approximately 12:31 in the morning watching TV when he suddenly developed the chest pain. He also complains of increasing shortness of breath and became diaphoretic and then took baby aspirin, 2 tabs, with some improvement in the pain. He presented to the emergency room with the above. In the emergency room, he was felt to have acute coronary syndrome as well as congestive heart failure. He was started on Lasix and albuterol treatment and morphine with good clinical response and transferred to telemetry for further monitoring. Patient denies any fevers, chills, nausea, vomiting. He denies any hemoptysis. He does complain of 2-pillow orthopnea. He denies any recent travel. There is no history of DVT or PE in the past. PAST MEDICAL HISTORY: Again, is extensive and includes, atrial fibrillation status post ablation,, ASHD status post 13 cardiac stents, GERD, status post AK, COPD , CHF, obstructive sleep apnea, hypercholesterolemia. SOCIAL HISTORY: History of smoking, quit 19 years ago. No occupational exposures. CURRENT MEDICATIONS: Include beclomethasone 2 puffs b.i.d., fenofibrate, Linzess, Flomax, Prinivil, Cordarone, Zoloft, DuoNeb, Toprol, Cardizem, Ranexa, Raven- Colace, Zantac, Lipitor, Lasix, Imdur, aspirin, Roxicodone, Effient, Carafate, Protonix , and K-Dur. PHYSICAL EXAMINATION: General: The patient is a well-developed, well-nourished male, awake, alert, currently in no acute distress. Vital Signs: He is currently afebrile, blood pressure 143/80, respiratory rate is 24, O2 saturation is 98% on 2 L. HEENT: Exam is normocephalic, atraumatic. Neck: Supple. Heart: Irregular. S1, S2. Chest: Bibasilar crackles. Abdomen: Soft. Bowel sounds positive. Extremities: Trace bilateral lower extremities edema. LABORATORY: WBC is 8, hemoglobin 10.8, hematocrit 38.9, with a platelet count of 269,000. Potassium 3.1, magnesium 1.7. Troponin 0.07. BNP is 7770. Chest x-ray mild congestion bilaterally, cardiomegaly. IMPRESSION: 1. Chest pain syndrome, likely acute coronary syndrome. 2. Positive troponin. 3. Acute on chronic congestive heart failure. 4. History of chronic obstructive pulmonary disease. 5. Atrial fibrillation status post ablations. 6. Arteriosclerotic heart disease, status post multiple stents. 7. Obstructive sleep apnea, not on CPAP. 8. Hypertension. 9. Aortic Stenosis PLAN: Lasix. Daily weights. Supplemental O2. Inhaled bronchodilators p.r.n. Trend troponins. Obtain followup chest x-rays. We will follow closely with you. Cardiac meds as per Cardiology,further w/u as per Cardiology MICHAEL MIRANDA M.D. [id number] MTDD
[2017-06-24] MEDS: FUROSEMIDE 40 MG/4 ML INJECTABLE VIAL IVPUSH SCH (14:31)
[2017-06-24] MEDS: LISINOPRIL 10 MG TABLET (FP) PO SCH (16:31)
[2017-06-24] MEDS: ASPIRIN 81 MG CHEWABLE TABLETS PO SCH (16:31)
[2017-06-24] MEDS: RANITIDINE HCL 150 MG TABLET (FP) PO SCH (16:32)
[2017-06-24] MEDS: TAMSULOSIN HCL 0.4 MG CAP.ER.24H (FP) PO SCH (16:32)
[2017-06-24] MEDS: PRASUGREL HCL 5 MG TAB PO SCH (21:17)
[2017-06-24] MEDS: ATORVASTATIN CA 20 MG TABLET (FP) PO SCH (21:18)
[2017-06-25] MEDS: oxyCODONE HCL 5 MG TABLET PO PRN ×4 (00:12→21:45)
[2017-06-25] MEDS: FUROSEMIDE 40 MG/4 ML INJECTABLE VIAL IVPUSH SCH ×2 (05:52→14:07)
[2017-06-25 07:58] LABS: BASO % 0.6 % (0-2.0); EOS % 3.4 % (0-4.5); HEMATOCRIT 34.1 % (35.4-49); HEMOGLOBIN 11.9 GM/dL (11.7-16.9); LYMPH % 22.5 % (8-40); MCH 29.4 pg (25.7-33.7); MCHC 34.9 g/dl (32.0-35.9); MEAN CELL VOLUME 84.3 fl (80-96); MEAN PLT VOLUME 7.5 fl (7.5-11.1); MONO % 10.1 % (3.8-10.2); NEUT % 63.4 % (42.8-82.8); PLATELET COUNT 279 K/MM3 (134-434); RBC 4.04 M/mm3 (4.00-5.60); RDW 13.8 % (11.9-15.9); WHITE BLOOD COUNT 6.6 K/mm3 (4.0-10.0)
[2017-06-25] MEDS: ALBUTEROL SO4 2.5/IPRATROPIUM 0.5 INH SOL 3 ML VIAL.NEB. NEB SCH ×4 (08:02→20:48)
[2017-06-25 08:11] LABS: INR 3.78 (0.82-1.09); PROTHROMBIN TIME (PATIENT) 42.7 SEC (9.7-13.0)
[2017-06-25] MEDS ORDERED: PT OWN MED DRAWER 7, Y5N ONE (08:40)
[2017-06-25 08:44] LABS: ALBUMIN 3.7 g/dl (3.4-5.0); ANION GAP 10 (8-16); BILIRUBIN,TOTAL 0.8 mg/dL (0.2-1.0); BLOOD UREA NITROGEN 18 mg/dL (7-18); CALCIUM 9.4 mg/dL (8.5-10.1); CHLORIDE 99 mmol/L (98-107); CHOLESTEROL 165 mg/dL (50-200); CO2 32 mmol/L (21-32); CREATININE 1.2 mg/dL (0.7-1.3); GLUCOSE,RANDOM 122 mg/dL (74-106); SGOT/AST 19 U/L (15-37); SGPT/ALT 16 U/L (12-78); SODIUM 141 mmol/L (136-145); TOT PROT 7.1 g/dl (6.4-8.2); TRIGLYCERIDES 145 mg/dL (35-160)
[2017-06-25 08:47] LABS: ALK PHOS 34 U/L (45-117)
[2017-06-25 08:58] LABS: POTASSIUM 2.7 mmol/L (3.5-5.1)
[2017-06-25 08:59] LABS: HDL CHOLESTEROL 39 mg/dL (40-60)
[2017-06-25] MEDS: AMIODARONE HCL 200 MG TABLET (FP) PO SCH (09:46)
[2017-06-25] MEDS: RANOLAZINE E.R. 1,000 MG TABLET (FP) PO SCH ×2 (09:46→21:45)
[2017-06-25] MEDS: POTASSIUM CHLORIDE TABS 20 MEQ TABLET.ER (FP) PO SCH ×2 (09:46→21:45)
[2017-06-25] MEDS: SERTRALINE HCL 50 MG TABLET (FP) PO SCH (09:46)
[2017-06-25] MEDS: ISOSORBIDE MONONITRATE 60 MG TAB.SR.24H (FP) PO SCH (09:46)
[2017-06-25] MEDS: PANTOPRAZOLE 40 MG TABLET (FP) PO SCH (09:46)
[2017-06-25] MEDS ORDERED: POTASSIUM CHLORIDE TABS 20 MEQ TABLET.ER (FP) PO ONE (11:15)
--- NOTE | 2017-06-25 11:16 | PN ---
Progress Note (short form) - Note Progress Note: PULMONARY Breathing improving. No further chest pain. Last Vital Signs Temp Pulse Resp BP Pulse Ox 98.5 F 73 20 97/61 94 L 06/25/17 09:49 06/25/17 09:49 06/25/17 09:49 06/25/17 09:49 06/24/17 21:00 Intake & Output 06/22/17 06/23/17 06/24/17 06/25/17 23:59 23:59 23:59 23:59 Intake Total 470 250 Output Total 2250 500 Balance -1780 -250 Weight 104.893 kg 103.419 kg Gen: NAD at rest Heart: RRR, +systolic murmur Lung: decreased breath sounds at the bases Abd: soft, nontender Ext: no edema CBC, BMP 06/25/17 07:27 06/25/17 07:27 Active Medications Albuterol/Ipratropium (Duoneb -) 1 amp NEB RQID [facility] Last Admin: 06/25/17 08:02 Dose: 1 amp Amiodarone HCl (Cordarone -) 200 mg PO DAILY [facility] Last Admin: 06/25/17 09:46 Dose: 200 mg Aspirin (Asa -) 81 mg PO ACDIN [facility] Last Admin: 06/24/17 16:31 Dose: 81 mg Atorvastatin Calcium (Lipitor -) 20 mg PO HS [facility] Last Admin: 06/24/17 21:18 Dose: 20 mg Diltiazem HCl (Cardizem Cd -) 120 mg PO DAILY [facility] Last Admin: 06/25/17 09:46 Dose: 120 mg Furosemide (Lasix Injection -) 40 mg IVPUSH BID@0600,1400 [facility] Last Admin: 06/25/17 05:52 Dose: 40 mg Isosorbide Mononitrate (Imdur -) 120 mg PO DAILY [facility] Last Admin: 06/25/17 09:46 Dose: 120 mg Lisinopril (Prinivil) 10 mg PO ACDIN [facility] Last Admin: 06/24/17 16:31 Dose: 10 mg Metoprolol Succinate (Toprol Xl -) 100 mg PO DAILY [facility] Last Admin: 06/24/17 10:00 Dose: 100 mg Non-Formulary Medication (Beclomethasone Dipropionate [Qvar]) 2 puff IH BID [facility] Non-Formulary Medication (Fenofibric Acid [Fibricor]) 105 mg PO DAILY [facility] Non-Formulary Medication (Linaclotide [Linzess]) 290 mcg PO BID [facility] Oxycodone HCl (Roxicodone -) 10 mg PO Q6H PRN PRN Reason: PAIN LEVEL 6-10 Last Admin: 06/25/17 09:46 Dose: 10 mg Oxycodone HCl (Roxicodone -) 30 mg PO HS PRN PRN Reason: BACK PAIN Last Admin: 06/25/17 00:12 Dose: 30 mg Pantoprazole Sodium (Protonix -) 40 mg PO DAILY [facility] Last Admin: 06/25/17 09:46 Dose: 40 mg Potassium Chloride (K-Dur -) 20 meq PO BID [facility] Last Admin: 06/25/17 09:46 Dose: 20 meq Prasugrel (Effient -) 5 mg PO HS [facility] Last Admin: 06/24/17 21:17 Dose: 5 mg Ranitidine HCl (Zantac -) 150 mg PO ACDIN [facility] Last Admin: 06/24/17 16:32 Dose: 150 mg Ranolazine (Ranexa -) 1,000 mg PO BID [facility] Last Admin: 06/25/17 09:46 Dose: 1,000 mg Senna/Docusate Sodium (Pericolace -) 2 tablet PO HS PRN PRN Reason: CONSTIPATION Sertraline HCl (Zoloft -) 50 mg PO DAILY [facility] Last Admin: 06/25/17 09:46 Dose: 50 mg Sucralfate (Carafate -) 1 gm PO DAILY PRN PRN Reason: ABD PAIN Tamsulosin HCl (Flomax -) 0.4 mg PO ACDIN [facility] Last Admin: 06/24/17 16:32 Dose: 0.4 mg A/P Acute on Chronic Diastolic Heart Failure Aortic Stenosis +Troponins CAD COPD CAD Atrial Fibrillation NOREEN HTN - continue lasix - monitor urine output, creatinine - daily weights - rate controlled - continue anticoagulation - replete lytes - O2 as needed - inhaled bronchodilators
--- NOTE | 2017-06-25 11:33 | EKG ---
Test Reason : Blood Pressure : / mmHG Vent. Rate : 071 BPM Atrial Rate : 071 BPM P-R Int : 192 ms QRS Dur : 154 ms QT Int : 486 ms P-R-T Axes : 078 -75 016 degrees QTc Int : 528 ms NORMAL SINUS RHYTHM RIGHT BUNDLE BRANCH BLOCK LEFT ANTERIOR FASCICULAR BLOCK BIFASCICULAR BLOCK ABNORMAL ECG WHEN COMPARED WITH ECG OF 24-JUN-2017 05:09, NO SIGNIFICANT CHANGE WAS FOUND Confirmed by JADA ROMERO MD ([id number]) on 06/25/2017 11:33:01 AM Referred By: Confirmed By:JADA ROMERO MD
[2017-06-25] MEDS ORDERED: KCL 10 MEQ IVPB 10 MEQ/100 ML INFUS.BAG IVPB SCH (14:15)
--- NOTE | 2017-06-25 14:29 | PN ---
Progress Note, Physician Chief Complaint: Chest pain History of Present Illness: NAD,No SOB Chest pain improved seen by cardiology and pulmonary - Current Medication List Current Medications: Active Medications Albuterol/Ipratropium (Duoneb -) 1 amp NEB RQID [facility] Last Admin: 06/25/17 11:47 Dose: 1 amp Amiodarone HCl (Cordarone -) 200 mg PO DAILY [facility] Last Admin: 06/25/17 09:46 Dose: 200 mg Aspirin (Asa -) 81 mg PO ACDIN [facility] Last Admin: 06/24/17 16:31 Dose: 81 mg Atorvastatin Calcium (Lipitor -) 20 mg PO HS [facility] Last Admin: 06/24/17 21:18 Dose: 20 mg Diltiazem HCl (Cardizem Cd -) 120 mg PO DAILY [facility] Last Admin: 06/25/17 09:46 Dose: 120 mg Furosemide (Lasix Injection -) 40 mg IVPUSH BID@0600,1400 [facility] Last Admin: 06/25/17 14:07 Dose: 40 mg Potassium Chloride (Potassium Chloride 10 Meq Premix Ivpb -) 10 meq in 100 mls @ 100 mls/hr IVPB Q60M [facility] Stop: 06/25/17 17:14 Isosorbide Mononitrate (Imdur -) 120 mg PO DAILY [facility] Last Admin: 06/25/17 09:46 Dose: 120 mg Lisinopril (Prinivil) 10 mg PO ACDIN [facility] Last Admin: 06/24/17 16:31 Dose: 10 mg Magnesium Oxide (Mag-Ox -) 400 mg PO BID [facility] Metoprolol Succinate (Toprol Xl -) 100 mg PO DAILY [facility] Last Admin: 06/25/17 11:18 Dose: 100 mg Non-Formulary Medication (Beclomethasone Dipropionate [Qvar]) 2 puff IH BID [facility] Non-Formulary Medication (Fenofibric Acid [Fibricor]) 105 mg PO DAILY [facility] Non-Formulary Medication (Linaclotide [Linzess]) 290 mcg PO BID [facility] Oxycodone HCl (Roxicodone -) 10 mg PO Q6H PRN PRN Reason: PAIN LEVEL 6-10 Last Admin: 06/25/17 09:46 Dose: 10 mg Oxycodone HCl (Roxicodone -) 30 mg PO HS PRN PRN Reason: BACK PAIN Last Admin: 06/25/17 00:12 Dose: 30 mg Pantoprazole Sodium (Protonix -) 40 mg PO DAILY [facility] Last Admin: 06/25/17 09:46 Dose: 40 mg Potassium Chloride (K-Dur -) 20 meq PO BID [facility] Last Admin: 06/25/17 09:46 Dose: 20 meq Prasugrel (Effient -) 5 mg PO HS [facility] Last Admin: 06/24/17 21:17 Dose: 5 mg Ranitidine HCl (Zantac -) 150 mg PO ACDIN [facility] Last Admin: 06/24/17 16:32 Dose: 150 mg Ranolazine (Ranexa -) 1,000 mg PO BID [facility] Last Admin: 06/25/17 09:46 Dose: 1,000 mg Senna/Docusate Sodium (Pericolace -) 2 tablet PO HS PRN PRN Reason: CONSTIPATION Sertraline HCl (Zoloft -) 50 mg PO DAILY [facility] Last Admin: 06/25/17 09:46 Dose: 50 mg Sucralfate (Carafate -) 1 gm PO DAILY PRN PRN Reason: ABD PAIN Tamsulosin HCl (Flomax -) 0.4 mg PO ACDIN [facility] Last Admin: 06/24/17 16:32 Dose: 0.4 mg - Objective Vital Signs: Vital Signs Temperature 98.5 F 06/25/17 09:49 Pulse Rate 73 06/25/17 09:49 Respiratory Rate 20 06/25/17 09:49 Blood Pressure 97/61 06/25/17 09:49 O2 Sat by Pulse Oximetry (%) 95 06/25/17 09:40 Constitutional: Yes: Well Nourished, No Distress, Calm Cardiovascular: Yes: Regular Rate and Rhythm Respiratory: Yes: Regular Musculoskeletal: Yes: WNL Extremities: Yes: WNL Edema: No Peripheral Pulses WNL: Yes Neurological: Yes: Alert, Oriented Psychiatric: Yes: Alert, Oriented Labs: CBC, BMP 06/25/17 07:27 06/25/17 07:27 INR, PTT INR 3.78 (0.82-1.09) H D 06/25/17 07:27 Problem List - Problems (1) Acute coronary syndrome Assessment/Plan: -seen by cardiology -on isosorbide Code(s): I24.9 - ACUTE ISCHEMIC HEART DISEASE, UNSPECIFIED (2) Acute on chronic diastolic (congestive) heart failure Assessment/Plan: -IV diuresisi -I&O's Code(s): I50.33 - ACUTE ON CHRONIC DIASTOLIC (CONGESTIVE) HEART FAILURE (3) Chest pain Assessment/Plan: -resolved -seen by cardiology -on imdur Code(s): R07.9 - CHEST PAIN, UNSPECIFIED Qualifiers: Chest pain type: other chest pain Qualified Code(s): R07.89 - Other chest pain; R07.8 - Other chest pain (4) TRACY (acute kidney injury) Assessment/Plan: monitor trend -nephrology consult Code(s): N17.9 - ACUTE KIDNEY FAILURE, UNSPECIFIED (5) Hypokalemia Assessment/Plan: -KCl 30 meq IV -KCl PO daily -monitor labs in AM Code(s): E87.6 - HYPOKALEMIA Assessment/Plan see problem list dvt prophylaxis
[2017-06-25] MEDS ORDERED: POTASSIUM CHLORIDE 30 MEQ in SODIUM CHLORIDE 300 ML IVPB ONE (14:45)
--- NOTE | 2017-06-25 15:01 | PN ---
Progress Note, Physician History of Present Illness: Coverage for Dr. Núñez Dyspnea improved, denies chest pain or LE edema. - Current Medication List Current Medications: Active Medications Albuterol/Ipratropium (Duoneb -) 1 amp NEB RQID [facility] Last Admin: 06/25/17 11:47 Dose: 1 amp Amiodarone HCl (Cordarone -) 200 mg PO DAILY [facility] Last Admin: 06/25/17 09:46 Dose: 200 mg Aspirin (Asa -) 81 mg PO ACDIN [facility] Last Admin: 06/24/17 16:31 Dose: 81 mg Atorvastatin Calcium (Lipitor -) 20 mg PO HS [facility] Last Admin: 06/24/17 21:18 Dose: 20 mg Diltiazem HCl (Cardizem Cd -) 120 mg PO DAILY [facility] Last Admin: 06/25/17 09:46 Dose: 120 mg Furosemide (Lasix Injection -) 40 mg IVPUSH BID@0600,1400 [facility] Last Admin: 06/25/17 14:07 Dose: 40 mg Heparin Sodium (Porcine) (Heparin -) 5,000 unit SQ BID [facility] Potassium Chloride 30 meq/ (Sodium Chloride) 315 mls @ 105 mls/hr IVPB ONCE ONE Stop: 06/25/17 17:44 Isosorbide Mononitrate (Imdur -) 120 mg PO DAILY [facility] Last Admin: 06/25/17 09:46 Dose: 120 mg Lisinopril (Prinivil) 10 mg PO ACDIN [facility] Last Admin: 06/24/17 16:31 Dose: 10 mg Magnesium Oxide (Mag-Ox -) 400 mg PO BID [facility] Metoprolol Succinate (Toprol Xl -) 100 mg PO DAILY [facility] Last Admin: 06/25/17 11:18 Dose: 100 mg Non-Formulary Medication (Beclomethasone Dipropionate [Qvar]) 2 puff IH BID [facility] Non-Formulary Medication (Fenofibric Acid [Fibricor]) 105 mg PO DAILY [facility] Non-Formulary Medication (Linaclotide [Linzess]) 290 mcg PO BID [facility] Oxycodone HCl (Roxicodone -) 10 mg PO Q6H PRN PRN Reason: PAIN LEVEL 6-10 Last Admin: 06/25/17 09:46 Dose: 10 mg Oxycodone HCl (Roxicodone -) 30 mg PO HS PRN PRN Reason: BACK PAIN Last Admin: 06/25/17 00:12 Dose: 30 mg Pantoprazole Sodium (Protonix -) 40 mg PO DAILY [facility] Last Admin: 06/25/17 09:46 Dose: 40 mg Potassium Chloride (K-Dur -) 20 meq PO BID [facility] Last Admin: 06/25/17 09:46 Dose: 20 meq Prasugrel (Effient -) 5 mg PO HS [facility] Last Admin: 06/24/17 21:17 Dose: 5 mg Ranitidine HCl (Zantac -) 150 mg PO ACDIN [facility] Last Admin: 06/24/17 16:32 Dose: 150 mg Ranolazine (Ranexa -) 1,000 mg PO BID [facility] Last Admin: 06/25/17 09:46 Dose: 1,000 mg Senna/Docusate Sodium (Pericolace -) 2 tablet PO HS PRN PRN Reason: CONSTIPATION Sertraline HCl (Zoloft -) 50 mg PO DAILY [facility] Last Admin: 06/25/17 09:46 Dose: 50 mg Sucralfate (Carafate -) 1 gm PO DAILY PRN PRN Reason: ABD PAIN Tamsulosin HCl (Flomax -) 0.4 mg PO ACDIN [facility] Last Admin: 06/24/17 16:32 Dose: 0.4 mg - Objective Vital Signs: Vital Signs Temperature 98.2 F 06/25/17 14:05 Pulse Rate 77 06/25/17 14:05 Respiratory Rate 20 06/25/17 14:05 Blood Pressure 129/66 06/25/17 14:05 O2 Sat by Pulse Oximetry (%) 95 06/25/17 09:40 Constitutional: Yes: No Distress, Calm Neck: Yes: Supple Cardiovascular: Yes: Regular Rate and Rhythm, Murmur (2/6 SM) Respiratory: Yes: Regular, Diminished Gastrointestinal: Yes: Normal Bowel Sounds, Soft, Abdomen, Obese Edema: No Labs: CBC, BMP 06/25/17 07:27 06/25/17 07:27 INR, PTT INR 3.78 (0.82-1.09) H D 06/25/17 07:27 - ....Imaging EKG: Report Reviewed (Tele: SR) Problem List - Problems (1) Demand ischemia Code(s): I24.8 - OTHER FORMS OF ACUTE ISCHEMIC HEART DISEASE (2) Acute on chronic diastolic (congestive) heart failure Code(s): I50.33 - ACUTE ON CHRONIC DIASTOLIC (CONGESTIVE) HEART FAILURE (3) Hypokalemia Code(s): E87.6 - HYPOKALEMIA (4) COPD (chronic obstructive pulmonary disease) Code(s): J44.9 - CHRONIC OBSTRUCTIVE PULMONARY DISEASE, UNSPECIFIED Qualifiers: COPD type: unspecified COPD Qualified Code(s): J44.9 - Chronic obstructive pulmonary disease, unspecified (5) Obstructive sleep apnea Code(s): G47.33 - OBSTRUCTIVE SLEEP APNEA (ADULT) (PEDIATRIC) (6) Paroxysmal a-fib Code(s): I48.0 - PAROXYSMAL ATRIAL FIBRILLATION (7) CAD (coronary artery disease) Code(s): I25.10 - ATHSCL HEART DISEASE OF [place] CORONARY ARTERY W/O ANG PCTRS Qualifiers: Coronary Disease-Associated Artery/Lesion type: [place] artery [place] vs. transplanted heart: [place] heart Associated angina: without angina Qualified Code(s): I25.10 - Atherosclerotic heart disease of [place] coronary artery without angina pectoris (8) History of coronary artery stent placement Code(s): Z95.5 - PRESENCE OF CORONARY ANGIOPLASTY IMPLANT AND GRAFT Assessment/Plan 03/10/2016 Mildly dilated LV with normal LV fxn, mod , mild AR, MR 1. Acute on Chronic Diastolic Heart Failure with moderate aortic stenosis 2. Paroxysmal atrial fibrillation-->s/p pulmonary vein ablation x 2 for PAF, most recently at [facility] (followed by Dr. Fam Pollock) with supratherapeutic INR 3. CAD: s/p multiple PCIs; the latest 12/08: patent mid LAD and RPDA prior stents; PTCA of distal OM1; latest angiograms 04/15 and 03/16: non-obstructive CAD, demand ischemia 4. Obstructive sleep apnea 5. COPD 6. Hypercholesterolemia 7. Hypertension Plan: Decrease IV diuresis with monitor diuretic response, renal fxn and electrolyes, replete K 2. Hold coumadin per INR 2-3, continue amio 200qd, Lipitor 20 qhs, Cardizem CD 120 qd, Imdur 120 qd, lisinopril 10qd, Toprol XL 100 qd, Ranexa 100 bid, DAPT per primary concrete block mason with GI protection, d/c sc heparin
[2017-06-25] MEDS: LISINOPRIL 10 MG TABLET (FP) PO SCH (16:43)
[2017-06-25] MEDS: ASPIRIN 81 MG CHEWABLE TABLETS PO SCH (16:43)
[2017-06-25] MEDS: TAMSULOSIN HCL 0.4 MG CAP.ER.24H (FP) PO SCH (16:43)
[2017-06-25] MEDS: RANITIDINE HCL 150 MG TABLET (FP) PO SCH (16:43)
[2017-06-25] MEDS: ATORVASTATIN CA 20 MG TABLET (FP) PO SCH (21:45)
[2017-06-25] MEDS: MAGNESIUM OXIDE 400 MG TABLET (FP) PO SCH (21:45)
[2017-06-25] MEDS: PRASUGREL HCL 5 MG TAB PO SCH (21:46)
[2017-06-25] MEDS ORDERED: HEPARIN NA (PORCINE) 5,000 UNITS/ML 1ML VIAL SQ SCH (22:00)
[2017-06-26 07:31] LABS: BASO % 0.6 % (0-2.0); EOS % 3.7 % (0-4.5); HEMATOCRIT 31.2 % (35.4-49); HEMOGLOBIN 10.8 GM/dL (11.7-16.9); LYMPH % 18.7 % (8-40); MCH 29.1 pg (25.7-33.7); MCHC 34.8 g/dl (32.0-35.9); MEAN CELL VOLUME 83.7 fl (80-96); MEAN PLT VOLUME 7.3 fl (7.5-11.1); MONO % 11.2 % (3.8-10.2); NEUT % 65.8 % (42.8-82.8); PLATELET COUNT 254 K/MM3 (134-434); RBC 3.72 M/mm3 (4.00-5.60); RDW 13.6 % (11.9-15.9)
[2017-06-26 07:41] LABS: INR 2.74 (0.82-1.09)
[2017-06-26 07:53] LABS: ALBUMIN 3.2 g/dl (3.4-5.0); ALK PHOS 34 U/L (45-117); ANION GAP 7 (8-16); BILIRUBIN,TOTAL 0.6 mg/dL (0.2-1.0); BLOOD UREA NITROGEN 20 mg/dL (7-18); CHLORIDE 102 mmol/L (98-107); CO2 31 mmol/L (21-32); GLUCOSE,RANDOM 109 mg/dL (74-106); MAGNESIUM 1.7 mg/dL (1.8-2.4); POTASSIUM 3.4 mmol/L (3.5-5.1); SGOT/AST 14 U/L (15-37); SGPT/ALT 15 U/L (12-78); SODIUM 140 mmol/L (136-145); TOT PROT 6.4 g/dl (6.4-8.2)
[2017-06-26] MEDS: ALBUTEROL SO4 2.5/IPRATROPIUM 0.5 INH SOL 3 ML VIAL.NEB. NEB SCH ×4 (08:37→20:20)
[2017-06-26] MEDS: oxyCODONE HCL 5 MG TABLET PO PRN ×3 (08:54→21:21)
[2017-06-26] MEDS: RANOLAZINE E.R. 1,000 MG TABLET (FP) PO SCH ×2 (09:27→21:20)
[2017-06-26] MEDS: ISOSORBIDE MONONITRATE 60 MG TAB.SR.24H (FP) PO SCH (09:28)
[2017-06-26] MEDS: POTASSIUM CHLORIDE TABS 20 MEQ TABLET.ER (FP) PO SCH ×2 (09:28→18:08)
[2017-06-26] MEDS: SERTRALINE HCL 50 MG TABLET (FP) PO SCH (09:28)
[2017-06-26] MEDS: PANTOPRAZOLE 40 MG TABLET (FP) PO SCH (09:28)
[2017-06-26] MEDS: AMIODARONE HCL 200 MG TABLET (FP) PO SCH (09:29)
[2017-06-26] MEDS: MAGNESIUM OXIDE 400 MG TABLET (FP) PO SCH ×2 (09:29→21:20)
[2017-06-26] MEDS ORDERED: FUROSEMIDE 40 MG/4 ML INJECTABLE VIAL IVPUSH SCH (10:00)
--- NOTE | 2017-06-26 11:40 | PN ---
Progress Note (short form) - Note Progress Note: PULMONARY Breathing improving but not at baseline. No further chest pain. Last Vital Signs Temp Pulse Resp BP Pulse Ox 98.2 F 63 20 100/44 96 06/26/17 08:22 06/26/17 08:22 06/26/17 08:24 06/26/17 08:22 06/26/17 08:24 Gen: NAD at rest Heart: RRR, +systolic murmur Lung: decreased breath sounds at the bases Abd: soft, nontender Ext: no edema CBC, BMP 06/26/17 07:04 06/26/17 07:04 Active Medications Albuterol/Ipratropium (Duoneb -) 1 amp NEB RQID [facility] Last Admin: 06/26/17 08:37 Dose: 1 amp Amiodarone HCl (Cordarone -) 200 mg PO DAILY [facility] Last Admin: 06/26/17 09:29 Dose: 200 mg Aspirin (Asa -) 81 mg PO ACDIN [facility] Last Admin: 06/25/17 16:43 Dose: 81 mg Atorvastatin Calcium (Lipitor -) 20 mg PO HS [facility] Last Admin: 06/25/17 21:45 Dose: 20 mg Diltiazem HCl (Cardizem Cd -) 120 mg PO DAILY [facility] Last Admin: 06/26/17 09:29 Dose: 120 mg Furosemide (Lasix Injection -) 40 mg IVPUSH DAILY [facility] Last Admin: 06/26/17 09:27 Dose: 40 mg Isosorbide Mononitrate (Imdur -) 120 mg PO DAILY [facility] Last Admin: 06/26/17 09:28 Dose: 120 mg Lisinopril (Prinivil) 10 mg PO ACDIN [facility] Last Admin: 06/25/17 16:43 Dose: 10 mg Magnesium Oxide (Mag-Ox -) 400 mg PO BID [facility] Last Admin: 06/26/17 09:29 Dose: 400 mg Metoprolol Succinate (Toprol Xl -) 100 mg PO DAILY [facility] Last Admin: 06/26/17 09:28 Dose: 100 mg Non-Formulary Medication (Beclomethasone Dipropionate [Qvar]) 2 puff IH BID [facility] Non-Formulary Medication (Fenofibric Acid [Fibricor]) 105 mg PO DAILY [facility] Non-Formulary Medication (Linaclotide [Linzess]) 290 mcg PO BID [facility] Oxycodone HCl (Roxicodone -) 10 mg PO Q6H PRN PRN Reason: PAIN LEVEL 6-10 Last Admin: 06/26/17 08:54 Dose: 10 mg Oxycodone HCl (Roxicodone -) 30 mg PO HS PRN PRN Reason: BACK PAIN Last Admin: 06/25/17 21:45 Dose: 30 mg Pantoprazole Sodium (Protonix -) 40 mg PO DAILY [facility] Last Admin: 06/26/17 09:28 Dose: 40 mg Potassium Chloride (K-Dur -) 20 meq PO BID [facility] Last Admin: 06/26/17 09:28 Dose: 20 meq Prasugrel (Effient -) 5 mg PO HS [facility] Last Admin: 06/25/17 21:46 Dose: 5 mg Ranitidine HCl (Zantac -) 150 mg PO ACDIN [facility] Last Admin: 06/25/17 16:43 Dose: 150 mg Ranolazine (Ranexa -) 1,000 mg PO BID [facility] Last Admin: 06/26/17 09:27 Dose: 1,000 mg Senna/Docusate Sodium (Pericolace -) 2 tablet PO HS PRN PRN Reason: CONSTIPATION Sertraline HCl (Zoloft -) 50 mg PO DAILY [facility] Last Admin: 06/26/17 09:28 Dose: 50 mg Sucralfate (Carafate -) 1 gm PO DAILY PRN PRN Reason: ABD PAIN Tamsulosin HCl (Flomax -) 0.4 mg PO ACDIN [facility] Last Admin: 06/25/17 16:43 Dose: 0.4 mg A/P Acute on Chronic Diastolic Heart Failure Aortic Stenosis +Troponins CAD COPD CAD Atrial Fibrillation NOREEN HTN - continue lasix - monitor urine output, creatinine - daily weights - rate controlled - continue anticoagulation - replete lytes - O2 as needed - inhaled bronchodilators
--- NOTE | 2017-06-26 12:10 | PN ---
Progress Note, Physician History of Present Illness: Coverage for Dr. Núñez Dyspnea on exertion improved to baseline, denies chest pain or LE edema. - Current Medication List Current Medications: Active Medications Albuterol/Ipratropium (Duoneb -) 1 amp NEB RQID [facility] Last Admin: 06/26/17 11:54 Dose: 1 amp Amiodarone HCl (Cordarone -) 200 mg PO DAILY [facility] Last Admin: 06/26/17 09:29 Dose: 200 mg Aspirin (Asa -) 81 mg PO ACDIN [facility] Last Admin: 06/25/17 16:43 Dose: 81 mg Atorvastatin Calcium (Lipitor -) 20 mg PO HS [facility] Last Admin: 06/25/17 21:45 Dose: 20 mg Diltiazem HCl (Cardizem Cd -) 120 mg PO DAILY [facility] Last Admin: 06/26/17 09:29 Dose: 120 mg Furosemide (Lasix Injection -) 40 mg IVPUSH DAILY [facility] Last Admin: 06/26/17 09:27 Dose: 40 mg Isosorbide Mononitrate (Imdur -) 120 mg PO DAILY [facility] Last Admin: 06/26/17 09:28 Dose: 120 mg Lisinopril (Prinivil) 10 mg PO ACDIN [facility] Last Admin: 06/25/17 16:43 Dose: 10 mg Magnesium Oxide (Mag-Ox -) 400 mg PO BID [facility] Last Admin: 06/26/17 09:29 Dose: 400 mg Metoprolol Succinate (Toprol Xl -) 100 mg PO DAILY [facility] Last Admin: 06/26/17 09:28 Dose: 100 mg Non-Formulary Medication (Beclomethasone Dipropionate [Qvar]) 2 puff IH BID [facility] Non-Formulary Medication (Fenofibric Acid [Fibricor]) 105 mg PO DAILY [facility] Non-Formulary Medication (Linaclotide [Linzess]) 290 mcg PO BID [facility] Oxycodone HCl (Roxicodone -) 10 mg PO Q6H PRN PRN Reason: PAIN LEVEL 6-10 Last Admin: 06/26/17 08:54 Dose: 10 mg Oxycodone HCl (Roxicodone -) 30 mg PO HS PRN PRN Reason: BACK PAIN Last Admin: 06/25/17 21:45 Dose: 30 mg Pantoprazole Sodium (Protonix -) 40 mg PO DAILY [facility] Last Admin: 06/26/17 09:28 Dose: 40 mg Potassium Chloride (K-Dur -) 20 meq PO BID [facility] Last Admin: 06/26/17 09:28 Dose: 20 meq Prasugrel (Effient -) 5 mg PO HS [facility] Last Admin: 06/25/17 21:46 Dose: 5 mg Ranitidine HCl (Zantac -) 150 mg PO ACDIN [facility] Last Admin: 06/25/17 16:43 Dose: 150 mg Ranolazine (Ranexa -) 1,000 mg PO BID [facility] Last Admin: 06/26/17 09:27 Dose: 1,000 mg Senna/Docusate Sodium (Pericolace -) 2 tablet PO HS PRN PRN Reason: CONSTIPATION Sertraline HCl (Zoloft -) 50 mg PO DAILY [facility] Last Admin: 06/26/17 09:28 Dose: 50 mg Sucralfate (Carafate -) 1 gm PO DAILY PRN PRN Reason: ABD PAIN Tamsulosin HCl (Flomax -) 0.4 mg PO ACDIN [facility] Last Admin: 06/25/17 16:43 Dose: 0.4 mg - Objective Vital Signs: Vital Signs Temperature 98.2 F 06/26/17 08:22 Pulse Rate 63 06/26/17 08:22 Respiratory Rate 20 06/26/17 08:24 Blood Pressure 100/44 06/26/17 08:22 O2 Sat by Pulse Oximetry (%) 96 06/26/17 08:24 Constitutional: Yes: No Distress, Calm Neck: Yes: Supple Cardiovascular: Yes: Regular Rate and Rhythm Respiratory: Yes: Regular, Diminished Gastrointestinal: Yes: Normal Bowel Sounds, Soft, Abdomen, Obese Edema: No Labs: CBC, BMP 06/26/17 07:04 06/26/17 07:04 INR, PTT INR 2.74 (0.82-1.09) H 06/26/17 07:04 - ....Imaging EKG: Report Reviewed Problem List - Problems (1) Demand ischemia Code(s): I24.8 - OTHER FORMS OF ACUTE ISCHEMIC HEART DISEASE (2) Acute on chronic diastolic (congestive) heart failure Code(s): I50.33 - ACUTE ON CHRONIC DIASTOLIC (CONGESTIVE) HEART FAILURE (3) Hypokalemia Code(s): E87.6 - HYPOKALEMIA (4) COPD (chronic obstructive pulmonary disease) Code(s): J44.9 - CHRONIC OBSTRUCTIVE PULMONARY DISEASE, UNSPECIFIED Qualifiers: COPD type: unspecified COPD Qualified Code(s): J44.9 - Chronic obstructive pulmonary disease, unspecified (5) Obstructive sleep apnea Code(s): G47.33 - OBSTRUCTIVE SLEEP APNEA (ADULT) (PEDIATRIC) (6) Paroxysmal a-fib Code(s): I48.0 - PAROXYSMAL ATRIAL FIBRILLATION (7) CAD (coronary artery disease) Code(s): I25.10 - ATHSCL HEART DISEASE OF [place] CORONARY ARTERY W/O ANG PCTRS Qualifiers: Coronary Disease-Associated Artery/Lesion type: [place] artery [place] vs. transplanted heart: [place] heart Associated angina: without angina Qualified Code(s): I25.10 - Atherosclerotic heart disease of [place] coronary artery without angina pectoris (8) History of coronary artery stent placement Code(s): Z95.5 - PRESENCE OF CORONARY ANGIOPLASTY IMPLANT AND GRAFT Assessment/Plan 03/10/2016 Mildly dilated LV with normal LV fxn, mod , mild AR, MR 1. Acute on Chronic Diastolic Heart Failure with moderate aortic stenosis resolving 2. Paroxysmal atrial fibrillation-->s/p pulmonary vein ablation x 2 for PAF, most recently at [facility] (followed by Dr. Fam Pollock) with therapeutic INR 3. CAD: s/p multiple PCIs; the latest 12/08: patent mid LAD and RPDA prior stents; PTCA of distal OM1; latest angiograms 04/15 and 03/16: non-obstructive CAD, demand ischemia 4. Obstructive sleep apnea 5. COPD 6. Hypercholesterolemia 7. Hypertension Plan: Resume oral diuresis with monitor diuretic response, renal fxn and electrolyes, replete K and Mg as you are 2. Continue coumadin per INR 2-3, continue amio 200qd, Lipitor 20 qhs, Cardizem CD 120 qd, Imdur 120 qd, lisinopril 10qd, Toprol XL 100 qd, Ranexa 100 bid, DAPT per primary service plumber with GI protection 3. D/c planning in AM
[2017-06-26 12:29] VITALS: BMI 36.5
--- NOTE | 2017-06-26 12:29 | CON.NEP ---
Consult Consult Specialty:: Nephrology - History of Present Illness Chief Complaint: chest pain History of Present Illness: Pt admitted with chest pain. He was given different medications including diuretics and his creatinine inga and his k dropped. So nephrology was called. He has no history of renal disease. Feels better now. No problems urinating. No nausea or vomiting. Has a cardiac history and has aortic stenosis. - History Source History Provided By: Patient, Medical Record - Past Medical History Cardio/Vascular: Yes: AFIB, Aortic Insufficiency, Aortic Stenosis, CAD, CHF ( chronic diastolic), HTN, Hyperlipdemia, [place], Other (SVT) Pulmonary: Yes: COPD, Sleep Apnea Gastrointestinal: Yes: GERD Renal/: No: Renal Failure, Renal Inusuff Psych: Yes: Anxiety, Depression Musculoskeletal: Yes: Chronic low back pain - Past Surgical History Past Surgical History: Yes: Stent (Multiple cardiac stents; pulmonary vein ablation Rx x 2 for AF/flutter) - Alcohol/Substance Use Hx Alcohol Use: No History of Substance Use: reports: None - Smoking History Smoking history: Never smoked Have you smoked in the past 12 months: No Aproximately how many cigarettes per day: 0 If you are a former smoker, when did you quit?: 19 YRS - Social History Usual Living Arrangement: With Spouse ADL: Independent History of Recent Travel: No Home Medications - Allergies Allergies/Adverse Reactions: Allergies Allergy/AdvReac Type Severity Reaction Status Date / Time levofloxacin [From Levaquin] Allergy Intermediate Swelling Verified 06/24/17 05: 12 - Home Medications Home Medications: Ambulatory Orders Albuterol Sulfate [Proair Respiclick] 90 mcg IH PRN 08/22/16 Aspirin [ASA -] 81 mg PO ACDIN 08/22/16 Diltiazem HCl [Diltiazem 24Hr ER] 120 mg PO DAILY 08/22/16 Fenofibric Acid [Fibricor] 105 mg PO DAILY 08/22/16 Isosorbide Mononitrate [Isosorbide Mononitrate ER] 120 mg PO DAILY 08/22/16 Levalbuterol HCl 1.25 mg IH TID 08/22/16 Linaclotide [Linzess] 290 mcg PO BID 08/22/16 Lisinopril 10 mg PO ACDIN 08/22/16 Metoclopramide HCl [Reglan] 10 mg PO PRN 08/22/16 Metoprolol Succinate [Toprol Xl] 100 mg PO DAILY 08/22/16 Nitroglycerin [place] [Nitrolingual [place] -] 1 spray TL PRN 08/22/16 Oxycodone HCl 30 mg PO HS PRN 08/22/16 Oxycodone HCl/Acetaminophen [Percocet 10-325 mg Tablet] 1 each PO BID PRN Pravastatin Sodium [Pravachol -] 80 mg PO HS 08/22/16 Ranitidine HCl [Zantac] 150 mg PO ACDIN 08/22/16 Ranolazine [Ranexa] 1,000 mg PO BID 08/22/16 Sucralfate [Carafate -] 1 gm PO DAILY PRN 08/22/16 Tamsulosin HCl [Flomax] 0.4 mg PO ACDIN 08/22/16 Tiotropium Br/Olodaterol HCl [Stiolto Respimat Inhal [place]] 2.5 gm IH BID Beclomethasone Dipropionate [Qvar] 2 puff IH BID 01/16/17 Mometasone Furoate 17 gm NS PRN PRN 01/16/17 Prasugrel HCl [Effient] 5 mg PO HS 01/16/17 Amiodarone HCl [Cordarone -] 200 mg PO DAILY 03/27/17 Hyoscyamine Sulfate 0.125 mg PO ASDIR PRN 03/27/17 Omeprazole 20 mg PO DAILY 03/27/17 Sertraline HCl 50 mg PO DAILY 03/27/17 Furosemide [Lasix -] 80 mg PO DAILY tablet 03/31/17 Potassium Chloride [K-Dur -] 20 meq PO DAILY #30 tablet.er 03/31/17 Sennosides/Docusate Sodium [Pericolace -] 2 tablet PO HS PRN tablet 03/31/17 Warfarin Na [Coumadin -] 2.5 mg PO DAILY@1800 #30 tablet 03/31/17 Family Disease History - Family Disease History Family Disease History: Heart Disease: Brother Review of Systems - Review of Systems Constitutional: reports: No Symptoms Eyes: reports: No Symptoms HENT: reports: No Symptoms Neck: reports: No Symptoms Cardiovascular: reports: Chest Pain Respiratory: reports: No Symptoms Gastrointestinal: reports: No Symptoms Genitourinary: reports: No Symptoms Breasts: reports: No Symptoms Reported Musculoskeletal: reports: No Symptoms Integumentary: reports: No Symptoms Neurological: reports: No Symptoms Endocrine: reports: No Symptoms Nephrology Consult - Height Height: 5 ft 7 in - Weight Weight: 233 lb 3.2 oz - BMI Body Mass Index (BMI): 36.5 - Lab Results CBC,BMP: CBC, BMP 06/26/17 07:04 06/26/17 07:04 Anion Gap: Anion Gap Anion Gap 7 (8-16) L 06/26/17 07:04 - Imaging Chest X-ray: Report Reviewed (no active disease) - Physical Examination Vital Signs: Vital Signs Temperature 98.2 F 06/26/17 08:22 Pulse Rate 63 06/26/17 08:22 Respiratory Rate 20 06/26/17 08:24 Blood Pressure 100/44 06/26/17 08:22 O2 Sat by Pulse Oximetry (%) 96 06/26/17 08:24 Constitutional: Yes: Well Nourished, No Distress Eyes: Yes: Conjunctiva Clear HENT: Yes: Atraumatic, Normocephalic Neck: Yes: Supple, Trachea Midline Cardiovascular: Yes: Regular Rate and Rhythm Respiratory: Yes: Regular, CTA Bilaterally Gastrointestinal: Yes: Normal Bowel Sounds Musculoskeletal: Yes: WNL Extremities: Yes: WNL Edema: No Peripheral Pulses WNL: Yes Wound/Incision: Yes: Clean/Dry Neurological: Yes: Alert, Oriented Psychiatric: Yes: Alert, Oriented Assessment/Plan IMPRESSION CAD s/p [place] and s/p PCI TRACY from diuresis likely, improving diastolic chf with aortic stenosis hypokalemia also from diuretics urinalysis shows normal protein PLAN obtain urine protein and creatinine agree with oral lasix monitor renal function and electrolytes- already better echo if not already done MV
[2017-06-26] MEDS: ASPIRIN 81 MG CHEWABLE TABLETS PO SCH (15:41)
[2017-06-26] MEDS: LISINOPRIL 10 MG TABLET (FP) PO SCH (15:41)
[2017-06-26] MEDS: TAMSULOSIN HCL 0.4 MG CAP.ER.24H (FP) PO SCH (15:41)
[2017-06-26] MEDS: RANITIDINE HCL 150 MG TABLET (FP) PO SCH (15:41)
[2017-06-26] MEDS ORDERED: POTASSIUM CHLORIDE TABS 20 MEQ TABLET.ER (FP) PO SCH (17:12)
--- NOTE | 2017-06-26 17:15 | PN ---
Progress Note, Physician Chief Complaint: Chest pain History of Present Illness: NAD,No SOB, in bed, family at bedside Chest pain improved seen by cardiology and pulmonary Seen by Nephrology - Current Medication List Current Medications: Active Medications Albuterol/Ipratropium (Duoneb -) 1 amp NEB RQID [facility] Last Admin: 06/26/17 17:08 Dose: 1 amp Amiodarone HCl (Cordarone -) 200 mg PO DAILY [facility] Last Admin: 06/26/17 09:29 Dose: 200 mg Aspirin (Asa -) 81 mg PO ACDIN [facility] Last Admin: 06/26/17 15:41 Dose: 81 mg Atorvastatin Calcium (Lipitor -) 20 mg PO HS [facility] Last Admin: 06/25/17 21:45 Dose: 20 mg Diltiazem HCl (Cardizem Cd -) 120 mg PO DAILY [facility] Last Admin: 06/26/17 09:29 Dose: 120 mg Fenofibric Acid (Trilipix -) 135 mg PO DAILY [facility] Furosemide (Lasix -) 40 mg PO DAILY [facility] Isosorbide Mononitrate (Imdur -) 120 mg PO DAILY [facility] Last Admin: 06/26/17 09:28 Dose: 120 mg Lisinopril (Prinivil) 10 mg PO ACDIN [facility] Last Admin: 06/26/17 15:41 Dose: 10 mg Magnesium Oxide (Mag-Ox -) 400 mg PO BID [facility] Last Admin: 06/26/17 09:29 Dose: 400 mg Metoprolol Succinate (Toprol Xl -) 100 mg PO DAILY [facility] Last Admin: 06/26/17 09:28 Dose: 100 mg Oxycodone HCl (Roxicodone -) 10 mg PO Q6H PRN PRN Reason: PAIN LEVEL 6-10 Last Admin: 06/26/17 15:41 Dose: 10 mg Oxycodone HCl (Roxicodone -) 30 mg PO HS PRN PRN Reason: BACK PAIN Last Admin: 06/25/17 21:45 Dose: 30 mg Pantoprazole Sodium (Protonix -) 40 mg PO DAILY [facility] Last Admin: 06/26/17 09:28 Dose: 40 mg Polyethylene Glycol (Miralax (For Daily Use) -) 17 gm PO DAILY [facility] Potassium Chloride (K-Dur -) 40 meq PO BID [facility] Potassium Chloride (K-Dur -) 40 meq PO DAILY [facility] Prasugrel (Effient -) 5 mg PO HS [facility] Last Admin: 06/25/17 21:46 Dose: 5 mg Ranitidine HCl (Zantac -) 150 mg PO ACDIN [facility] Last Admin: 06/26/17 15:41 Dose: 150 mg Ranolazine (Ranexa -) 1,000 mg PO BID [facility] Last Admin: 06/26/17 09:27 Dose: 1,000 mg Senna/Docusate Sodium (Pericolace -) 2 tablet PO HS PRN PRN Reason: CONSTIPATION Sertraline HCl (Zoloft -) 50 mg PO DAILY [facility] Last Admin: 06/26/17 09:28 Dose: 50 mg Sucralfate (Carafate -) 1 gm PO DAILY PRN PRN Reason: ABD PAIN Tamsulosin HCl (Flomax -) 0.4 mg PO ACDIN [facility] Last Admin: 06/26/17 15:41 Dose: 0.4 mg - Objective Vital Signs: Vital Signs Temperature 98.4 F 06/26/17 14:28 Pulse Rate 66 06/26/17 14:28 Respiratory Rate 20 06/26/17 14:28 Blood Pressure 104/58 06/26/17 14:28 O2 Sat by Pulse Oximetry (%) 96 06/26/17 08:24 Constitutional: Yes: Well Nourished, No Distress, Calm Cardiovascular: Yes: Regular Rate and Rhythm Respiratory: Yes: Regular Gastrointestinal: Yes: Normal Bowel Sounds, Soft, Abdomen, Obese Musculoskeletal: Yes: Muscle Weakness Neurological: Yes: Alert, Oriented Psychiatric: Yes: Alert, Oriented Labs: CBC, BMP 06/26/17 07:04 06/26/17 07:04 INR, PTT INR 2.74 (0.82-1.09) H 06/26/17 07:04 Problem List - Problems (1) Acute coronary syndrome Assessment/Plan: -seen by cardiology -on isosorbide Code(s): I24.9 - ACUTE ISCHEMIC HEART DISEASE, UNSPECIFIED (2) Acute on chronic diastolic (congestive) heart failure Assessment/Plan: -IV diuresis -I&O's -Echo ordered Code(s): I50.33 - ACUTE ON CHRONIC DIASTOLIC (CONGESTIVE) HEART FAILURE (3) Chest pain Assessment/Plan: -resolved -seen by cardiology -on imdur Code(s): R07.9 - CHEST PAIN, UNSPECIFIED Qualifiers: Chest pain type: other chest pain Qualified Code(s): R07.89 - Other chest pain; R07.8 - Other chest pain (4) TRACY (acute kidney injury) Assessment/Plan: monitor trend -nephrology consult Code(s): N17.9 - ACUTE KIDNEY FAILURE, UNSPECIFIED (5) Hypokalemia Assessment/Plan: -KCL 40 meq once -Change KCL to 40 meq BID -monitor labs in AM Code(s): E87.6 - HYPOKALEMIA Assessment/Plan see problem list dvt prophylaxis
[2017-06-26] MEDS ORDERED: PT OWN MED DRAWER 7, Y5N ONE (21:19)
[2017-06-26] MEDS: ATORVASTATIN CA 20 MG TABLET (FP) PO SCH (21:20)
[2017-06-26] MEDS: PRASUGREL HCL 5 MG TAB PO SCH (21:21)
[2017-06-27 06:33] LABS: BASO % 0.4 % (0-2.0); EOS % 3.8 % (0-4.5); HEMATOCRIT 32.4 % (35.4-49); HEMOGLOBIN 11.4 GM/dL (11.7-16.9); LYMPH % 18.5 % (8-40); MCH 29.5 pg (25.7-33.7); MCHC 35.1 g/dl (32.0-35.9); MEAN CELL VOLUME 84.1 fl (80-96); MEAN PLT VOLUME 7.5 fl (7.5-11.1); MONO % 8.3 % (3.8-10.2); PLATELET COUNT 296 K/MM3 (134-434); RBC 3.85 M/mm3 (4.00-5.60); RDW 13.7 % (11.9-15.9); WHITE BLOOD COUNT 7.3 K/mm3 (4.0-10.0)
[2017-06-27] MEDS: oxyCODONE HCL 5 MG TABLET PO PRN ×3 (06:38→21:54)
[2017-06-27 07:09] LABS: ALBUMIN 3.4 g/dl (3.4-5.0); ANION GAP 5 (8-16); BLOOD UREA NITROGEN 18 mg/dL (7-18); CALCIUM 8.9 mg/dL (8.5-10.1); CHLORIDE 101 mmol/L (98-107); CO2 30 mmol/L (21-32); GLUCOSE,RANDOM 107 mg/dL (74-106); POTASSIUM 3.9 mmol/L (3.5-5.1); SGOT/AST 15 U/L (15-37); SGPT/ALT 16 U/L (12-78); SODIUM 136 mmol/L (136-145)
[2017-06-27 07:12] LABS: ALK PHOS 40 U/L (45-117); BILIRUBIN,TOTAL 0.5 mg/dL (0.2-1.0); CREATININE 0.9 mg/dL (0.7-1.3); TOT PROT 6.9 g/dl (6.4-8.2)
[2017-06-27] MEDS: ALBUTEROL SO4 2.5/IPRATROPIUM 0.5 INH SOL 3 ML VIAL.NEB. NEB SCH ×4 (07:35→20:45)
--- NOTE | 2017-06-27 08:51 | PN ---
Progress Note, Physician History of Present Illness: 62 year old male with midsternal chest pain , as per patient woke up with chest pain and difficulty breathing. patient took 3 baby aspirin and 2 tabs nitro with some improvement in pain. Patient had second episode and became diaphoretic and came into the ER. denies weakness, fever/ chills, edema , NV, abdominal pain, headache - Past Medical History Cardiovascular: Yes: AFIB, Aortic Insufficiency, Aortic Stenosis, CAD, CHF ( chronic diastolic), HTN, Hyperlipdemia, MO, Other (SVT) Pulmonary: Yes: COPD, Sleep Apnea Gastrointestinal: Yes: GERD Psych: Yes: Anxiety, Depression Musculoskeletal: Yes: Chronic low back pain PMH s/p multiple coronary stents s/p PTCA of distal OM1 (12/24/10) s/p pulmonary vein isolation procedures (ablation) x 2 for Atrial Fibrillation Cardiac Cath [facility] 01-17-09 Coronary Angiography [facility] 11-04-09 Cardiac Cath [facility] 12-31-09 Cardiac Cath [facility] 06-01-10 Cardiac Cath [facility] 06-22-10 Cardiac Cath [facility] 12-24-10 Cardiac Cath [facility] 03-17-12 Cardiac Cath [facility] 05-11-12 Cardiac Surgery 06-01-12 Cardiac Cath [facility] 03-28-15 Cardiac Cath [facility] 03-28-15 Cardiac Cath [facility] 03-12-16 Ongoing medical problems Medical history: angina pectoris obstructive sleep apnea Anxiety Atrial fibrillation-->ablation Rx CAD: s/p multiple PCIs; the latest 12/08: patent mid LAD and RPDA prior stents; PTCA of distal OM1; latest angiograms 04/15 and 03/16: non-obstructive CAD Congestive heart failure (diastolic) COPD Hypercholesterolemia Hypertension Moderate aortic regurgitation Obesity s/p pulmonary vein ablation x 2 for PAF, most recently at [facility] (followed by Dr. Fam Pollock) - Current Medication List Current Medications: Active Medications Albuterol/Ipratropium (Duoneb -) 1 amp NEB RQID [facility] Last Admin: 06/27/17 07:35 Dose: 1 amp Amiodarone HCl (Cordarone -) 200 mg PO DAILY [facility] Last Admin: 06/26/17 09:29 Dose: 200 mg Aspirin (Asa -) 81 mg PO ACDIN [facility] Last Admin: 06/26/17 15:41 Dose: 81 mg Atorvastatin Calcium (Lipitor -) 20 mg PO HS [facility] Last Admin: 06/26/17 21:20 Dose: 20 mg Diltiazem HCl (Cardizem Cd -) 120 mg PO DAILY [facility] Last Admin: 06/26/17 09:29 Dose: 120 mg Fenofibric Acid (Trilipix -) 135 mg PO DAILY [facility] Furosemide (Lasix -) 40 mg PO DAILY [facility] Isosorbide Mononitrate (Imdur -) 120 mg PO DAILY [facility] Last Admin: 06/26/17 09:28 Dose: 120 mg Lisinopril (Prinivil) 10 mg PO ACDIN [facility] Last Admin: 06/26/17 15:41 Dose: 10 mg Magnesium Oxide (Mag-Ox -) 400 mg PO BID [facility] Last Admin: 06/26/17 21:20 Dose: 400 mg Metoprolol Succinate (Toprol Xl -) 100 mg PO DAILY [facility] Last Admin: 06/26/17 09:28 Dose: 100 mg Oxycodone HCl (Roxicodone -) 10 mg PO Q6H PRN PRN Reason: PAIN LEVEL 6-10 Last Admin: 06/27/17 06:38 Dose: 10 mg Oxycodone HCl (Roxicodone -) 30 mg PO HS PRN PRN Reason: BACK PAIN Last Admin: 06/26/17 21:21 Dose: 30 mg Pantoprazole Sodium (Protonix -) 40 mg PO DAILY [facility] Last Admin: 06/26/17 09:28 Dose: 40 mg Polyethylene Glycol (Miralax (For Daily Use) -) 17 gm PO DAILY [facility] Potassium Chloride (K-Dur -) 40 meq PO DAILY [facility] Last Admin: 06/26/17 18:08 Dose: 40 meq Prasugrel (Effient -) 5 mg PO HS [facility] Last Admin: 06/26/17 21:21 Dose: 5 mg Ranitidine HCl (Zantac -) 150 mg PO ACDIN [facility] Last Admin: 06/26/17 15:41 Dose: 150 mg Ranolazine (Ranexa -) 1,000 mg PO BID [facility] Last Admin: 06/26/17 21:20 Dose: 1,000 mg Senna/Docusate Sodium (Pericolace -) 2 tablet PO HS PRN PRN Reason: CONSTIPATION Sertraline HCl (Zoloft -) 50 mg PO DAILY [facility] Last Admin: 06/26/17 09:28 Dose: 50 mg Sucralfate (Carafate -) 1 gm PO DAILY PRN PRN Reason: ABD PAIN Tamsulosin HCl (Flomax -) 0.4 mg PO ACDIN [facility] Last Admin: 06/26/17 15:41 Dose: 0.4 mg - Objective Vital Signs: Vital Signs Temperature 98.2 F 06/27/17 07:58 Pulse Rate 60 06/27/17 07:58 Respiratory Rate 20 06/27/17 08:00 Blood Pressure 123/69 06/27/17 07:58 O2 Sat by Pulse Oximetry (%) 96 06/27/17 08:00 Eyes: Yes: WNL, Conjunctiva Clear, EOM Intact HENT: Yes: WNL, Atraumatic, Normocephalic Neck: Yes: WNL, Supple, Trachea Midline Cardiovascular: Yes: WNL, Regular Rate and Rhythm Respiratory: Yes: WNL, Regular, CTA Bilaterally Gastrointestinal: Yes: WNL, Normal Bowel Sounds Genitourinary: Yes: WNL Musculoskeletal: Yes: WNL Extremities: Yes: WNL Edema: No Integumentary: Yes: WNL Neurological: Yes: WNL, Alert, Oriented ...Motor Strength: WNL Psychiatric: Yes: WNL Labs: CBC, BMP 06/27/17 06:10 06/27/17 06:10 INR, PTT INR 2.74 (0.82-1.09) H 06/26/17 07:04 Problem List - Problems (1) Acute coronary syndrome Code(s): I24.9 - ACUTE ISCHEMIC HEART DISEASE, UNSPECIFIED (2) Acute on chronic diastolic (congestive) heart failure Code(s): I50.33 - ACUTE ON CHRONIC DIASTOLIC (CONGESTIVE) HEART FAILURE (3) Chest pain Code(s): R07.9 - CHEST PAIN, UNSPECIFIED Qualifiers: Chest pain type: other chest pain Qualified Code(s): R07.89 - Other chest pain; R07.8 - Other chest pain (4) COPD (chronic obstructive pulmonary disease) Code(s): J44.9 - CHRONIC OBSTRUCTIVE PULMONARY DISEASE, UNSPECIFIED Qualifiers: COPD type: unspecified COPD Qualified Code(s): J44.9 - Chronic obstructive pulmonary disease, unspecified (5) TRACY (acute kidney injury) Code(s): N17.9 - ACUTE KIDNEY FAILURE, UNSPECIFIED (6) Aortic stenosis Code(s): I35.0 - NONRHEUMATIC AORTIC (VALVE) STENOSIS (7) Bifascicular bundle branch block Code(s): I45.2 - BIFASCICULAR BLOCK (8) CAP (community acquired pneumonia) Code(s): J18.9 - PNEUMONIA, UNSPECIFIED ORGANISM Qualifiers: Laterality: left Lung location: lower lobe of lung Qualified Code(s): J18.1 - Lobar pneumonia, unspecified organism (9) CHF (congestive heart failure) Code(s): I50.9 - HEART FAILURE, UNSPECIFIED (10) COPD exacerbation Code(s): J44.1 - CHRONIC OBSTRUCTIVE PULMONARY DISEASE W (ACUTE) EXACERBATION (11) Chest heaviness Code(s): R07.89 - OTHER CHEST PAIN (12) Contusion of rib on right side Code(s): S20.211A - CONTUSION OF RIGHT FRONT WALL OF THORAX, INITIAL ENCOUNTER Qualifiers: Encounter type: initial encounter Qualified Code(s): S20.211A - Contusion of right front wall of thorax, initial encounter (13) Dyspnea Code(s): R06.00 - DYSPNEA, UNSPECIFIED Qualifiers: Dyspnea type: orthopnea Qualified Code(s): R06.01 - Orthopnea (14) Elevated troponin Code(s): R79.89 - OTHER SPECIFIED ABNORMAL FINDINGS OF BLOOD CHEMISTRY (15) Epigastric abdominal pain Code(s): R10.13 - EPIGASTRIC PAIN (16) Epistaxis Code(s): R04.0 - EPISTAXIS (17) Hypertriglyceridemia Code(s): E78.1 - PURE HYPERGLYCERIDEMIA (18) Hypotension Code(s): I95.9 - HYPOTENSION, UNSPECIFIED (19) Hypothyroid Code(s): E03.9 - HYPOTHYROIDISM, UNSPECIFIED (20) LPRD (laryngopharyngeal reflux disease) Code(s): K21.9 - GASTRO-ESOPHAGEAL REFLUX DISEASE WITHOUT ESOPHAGITIS (21) Moderate aortic stenosis Code(s): I35.0 - NONRHEUMATIC AORTIC (VALVE) STENOSIS (22) Myocardial disease Code(s): I51.5 - MYOCARDIAL DEGENERATION (23) Nausea Code(s): R11.0 - NAUSEA (24) Obesity Code(s): E66.9 - OBESITY, UNSPECIFIED (25) Obstructive sleep apnea Code(s): G47.33 - OBSTRUCTIVE SLEEP APNEA (ADULT) (PEDIATRIC) (26) Paroxysmal a-fib Code(s): I48.0 - PAROXYSMAL ATRIAL FIBRILLATION (27) Pleural effusion Code(s): J90 - PLEURAL EFFUSION, NOT ELSEWHERE CLASSIFIED (28) Pneumonia Code(s): J18.9 - PNEUMONIA, UNSPECIFIED ORGANISM (29) Presence of stent in coronary artery in patient with coronary artery disease Code(s): I25.10 - ATHSCL HEART DISEASE OF [place] CORONARY ARTERY W/O ANG PCTRS; Z95.5 - PRESENCE OF CORONARY ANGIOPLASTY IMPLANT AND GRAFT (30) Rib fractures Code(s): S22.39XA - FRACTURE OF ONE RIB, UNSP SIDE, INIT FOR CLOS FX Qualifiers: Encounter type: subsequent encounter Rib fracture type: single rib Fracture type: closed Laterality: right Fracture healing: with routine healing Qualified Code(s): S22.31XD - Fracture of one rib, right side, subsequent encounter for fracture with routine healing (31) SOB (shortness of breath) Code(s): R06.02 - SHORTNESS OF BREATH (32) Sepsis Code(s): A41.9 - SEPSIS, UNSPECIFIED ORGANISM (33) Atrial fibrillation Code(s): I48.91 - UNSPECIFIED ATRIAL FIBRILLATION (34) CAD (coronary artery disease) Code(s): I25.10 - ATHSCL HEART DISEASE OF [place] CORONARY ARTERY W/O ANG PCTRS Qualifiers: Coronary Disease-Associated Artery/Lesion type: [place] artery [place] vs. transplanted heart: [place] heart Associated angina: without angina Qualified Code(s): I25.10 - Atherosclerotic heart disease of [place] coronary artery without angina pectoris (35) Chronic abdominal pain Code(s): R10.9 - UNSPECIFIED ABDOMINAL PAIN; G89.29 - OTHER CHRONIC PAIN (36) Chronic back pain Code(s): M54.9 - DORSALGIA, UNSPECIFIED; G89.29 - OTHER CHRONIC PAIN (37) Chronic diastolic heart failure Code(s): I50.32 - CHRONIC DIASTOLIC (CONGESTIVE) HEART FAILURE (38) Constipation Code(s): K59.00 - CONSTIPATION, UNSPECIFIED (39) History of coronary artery stent placement Code(s): Z95.5 - PRESENCE OF CORONARY ANGIOPLASTY IMPLANT AND GRAFT (40) Hyperlipidemia Code(s): E78.5 - HYPERLIPIDEMIA, UNSPECIFIED (41) Hypertension Code(s): I10 - ESSENTIAL (PRIMARY) HYPERTENSION Assessment/Plan decompensated CHF angina pectoris obstructive sleep apnea Anxiety Atrial fibrillation-->ablation Rx CAD: s/p multiple PCIs; the latest 12/08: patent mid LAD and RPDA prior stents; PTCA of distal OM1; latest angiograms 04/15 and 03/16: non-obstructive CAD Congestive heart failure (diastolic) COPD Hypercholesterolemia Hypertension Moderate aortic regurgitation Obesity s/p pulmonary vein ablation x 2 for PAF, most recently at [facility] (followed by Dr. Fam Pollock) doubt primary ACS since tni's borderline and INR 7.3 most likely decompensated CHF - patient states his cp feels more "like SOB" Plan; telemetry DAPT PO lasix supplement K resume coumadin will f/u
--- NOTE | 2017-06-27 09:00 | PN ---
Progress Note, Physician - Current Medication List Current Medications: Active Medications Albuterol/Ipratropium (Duoneb -) 1 amp NEB RQID [facility] Last Admin: 06/27/17 07:35 Dose: 1 amp Amiodarone HCl (Cordarone -) 200 mg PO DAILY [facility] Last Admin: 06/26/17 09:29 Dose: 200 mg Aspirin (Asa -) 81 mg PO ACDIN [facility] Last Admin: 06/26/17 15:41 Dose: 81 mg Atorvastatin Calcium (Lipitor -) 20 mg PO HS [facility] Last Admin: 06/26/17 21:20 Dose: 20 mg Diltiazem HCl (Cardizem Cd -) 120 mg PO DAILY [facility] Last Admin: 06/26/17 09:29 Dose: 120 mg Fenofibric Acid (Trilipix -) 135 mg PO DAILY [facility] Furosemide (Lasix -) 40 mg PO DAILY [facility] Isosorbide Mononitrate (Imdur -) 120 mg PO DAILY [facility] Last Admin: 06/26/17 09:28 Dose: 120 mg Lisinopril (Prinivil) 10 mg PO ACDIN [facility] Last Admin: 06/26/17 15:41 Dose: 10 mg Magnesium Oxide (Mag-Ox -) 400 mg PO BID [facility] Last Admin: 06/26/17 21:20 Dose: 400 mg Metoprolol Succinate (Toprol Xl -) 100 mg PO DAILY [facility] Last Admin: 06/26/17 09:28 Dose: 100 mg Oxycodone HCl (Roxicodone -) 10 mg PO Q6H PRN PRN Reason: PAIN LEVEL 6-10 Last Admin: 06/27/17 06:38 Dose: 10 mg Oxycodone HCl (Roxicodone -) 30 mg PO HS PRN PRN Reason: BACK PAIN Last Admin: 06/26/17 21:21 Dose: 30 mg Pantoprazole Sodium (Protonix -) 40 mg PO DAILY [facility] Last Admin: 06/26/17 09:28 Dose: 40 mg Polyethylene Glycol (Miralax (For Daily Use) -) 17 gm PO DAILY [facility] Potassium Chloride (K-Dur -) 40 meq PO DAILY [facility] Last Admin: 06/26/17 18:08 Dose: 40 meq Prasugrel (Effient -) 5 mg PO HS [facility] Last Admin: 06/26/17 21:21 Dose: 5 mg Ranitidine HCl (Zantac -) 150 mg PO ACDIN [facility] Last Admin: 06/26/17 15:41 Dose: 150 mg Ranolazine (Ranexa -) 1,000 mg PO BID [facility] Last Admin: 06/26/17 21:20 Dose: 1,000 mg Senna/Docusate Sodium (Pericolace -) 2 tablet PO HS PRN PRN Reason: CONSTIPATION Sertraline HCl (Zoloft -) 50 mg PO DAILY [facility] Last Admin: 06/26/17 09:28 Dose: 50 mg Sucralfate (Carafate -) 1 gm PO DAILY PRN PRN Reason: ABD PAIN Tamsulosin HCl (Flomax -) 0.4 mg PO ACDIN [facility] Last Admin: 06/26/17 15:41 Dose: 0.4 mg - Objective Vital Signs: Vital Signs Temperature 98.2 F 06/27/17 07:58 Pulse Rate 60 06/27/17 07:58 Respiratory Rate 20 06/27/17 08:00 Blood Pressure 123/69 06/27/17 07:58 O2 Sat by Pulse Oximetry (%) 96 06/27/17 08:00 Cardiovascular: Yes: S1, S2 Respiratory: Yes: Regular, CTA Bilaterally Gastrointestinal: Yes: Normal Bowel Sounds, Soft Labs: CBC, BMP 06/27/17 06:10 06/27/17 06:10 INR, PTT INR 2.74 (0.82-1.09) H 06/26/17 07:04 Problem List - Problems (1) Acute coronary syndrome Assessment/Plan: -CE NEGATIVE -CONTINUE WITH MEDS -CARDIOLOGY CONSULT NOTED Code(s): I24.9 - ACUTE ISCHEMIC HEART DISEASE, UNSPECIFIED (2) Chest pain Assessment/Plan: -RESOLVED - ABOVE Code(s): R07.9 - CHEST PAIN, UNSPECIFIED Qualifiers: Chest pain type: other chest pain Qualified Code(s): R07.89 - Other chest pain; R07.8 - Other chest pain (3) COPD (chronic obstructive pulmonary disease) Assessment/Plan: -NEBS -STABLE Code(s): J44.9 - CHRONIC OBSTRUCTIVE PULMONARY DISEASE, UNSPECIFIED Qualifiers: COPD type: unspecified COPD Qualified Code(s): J44.9 - Chronic obstructive pulmonary disease, unspecified (4) Aortic stenosis Assessment/Plan: -PER CARDIO -CHECK LAST ECHO Code(s): I35.0 - NONRHEUMATIC AORTIC (VALVE) STENOSIS (5) CHF (congestive heart failure) Assessment/Plan: -ON PO LASIX -FOLLOW CLINICALLY Code(s): I50.9 - HEART FAILURE, UNSPECIFIED (6) Elevated troponin Assessment/Plan: -FOLLOW TREND Code(s): R79.89 - OTHER SPECIFIED ABNORMAL FINDINGS OF BLOOD CHEMISTRY (7) Atrial fibrillation Assessment/Plan: -FOLLOW INR -ON COUMADIN -RATE CONTROLLED -TELE Code(s): I48.91 - UNSPECIFIED ATRIAL FIBRILLATION (8) Leg pain Assessment/Plan: PROBABLY RADICULOPATHY -WILL GET DUPLEX Code(s): M79.606 - PAIN IN LEG, UNSPECIFIED
[2017-06-27] MEDS: PANTOPRAZOLE 40 MG TABLET (FP) PO SCH (09:26)
[2017-06-27] MEDS: SERTRALINE HCL 50 MG TABLET (FP) PO SCH (09:26)
[2017-06-27] MEDS ORDERED: PT OWN MED DRAWER 7, Y5N ONE (09:26)
[2017-06-27] MEDS: RANOLAZINE E.R. 1,000 MG TABLET (FP) PO SCH ×2 (09:26→21:53)
[2017-06-27] MEDS: FUROSEMIDE 40 MG TABLET (FP) PO SCH (09:26)
[2017-06-27] MEDS: AMIODARONE HCL 200 MG TABLET (FP) PO SCH (09:26)
[2017-06-27] MEDS: FENOFIBRIC ACID 135 MG CAP PO SCH (09:26)
[2017-06-27] MEDS: ISOSORBIDE MONONITRATE 60 MG TAB.SR.24H (FP) PO SCH (09:27)
[2017-06-27] MEDS: POTASSIUM CHLORIDE TABS 20 MEQ TABLET.ER (FP) PO SCH (09:27)
[2017-06-27] MEDS: MAGNESIUM OXIDE 400 MG TABLET (FP) PO SCH ×2 (09:27→21:53)
[2017-06-27 09:58] LABS: INR 2.05 (0.82-1.09); PROTHROMBIN TIME (PATIENT) 23.2 SEC (9.7-13.0)
[2017-06-27] MEDS: POLYETHYLENE GLYCOL 3350 119 GM BTL PO SCH (10:27)
--- NOTE | 2017-06-27 11:11 | PN ---
Progress Note, Physician History of Present Illness: pulmonary alert,feeling better,occ cough dyspnea improved,-cp - Current Medication List Current Medications: Active Medications Albuterol/Ipratropium (Duoneb -) 1 amp NEB RQID [facility] Last Admin: 06/27/17 07:35 Dose: 1 amp Amiodarone HCl (Cordarone -) 200 mg PO DAILY [facility] Last Admin: 06/27/17 09:26 Dose: 200 mg Aspirin (Asa -) 81 mg PO ACDIN [facility] Last Admin: 06/26/17 15:41 Dose: 81 mg Atorvastatin Calcium (Lipitor -) 20 mg PO HS [facility] Last Admin: 06/26/17 21:20 Dose: 20 mg Diltiazem HCl (Cardizem Cd -) 120 mg PO DAILY [facility] Last Admin: 06/27/17 09:27 Dose: 120 mg Fenofibric Acid (Trilipix -) 135 mg PO DAILY [facility] Last Admin: 06/27/17 09:26 Dose: 135 mg Furosemide (Lasix -) 40 mg PO DAILY [facility] Last Admin: 06/27/17 09:26 Dose: 40 mg Isosorbide Mononitrate (Imdur -) 120 mg PO DAILY [facility] Last Admin: 06/27/17 09:27 Dose: 120 mg Lisinopril (Prinivil) 10 mg PO ACDIN [facility] Last Admin: 06/26/17 15:41 Dose: 10 mg Magnesium Oxide (Mag-Ox -) 400 mg PO BID [facility] Last Admin: 06/27/17 09:27 Dose: 400 mg Metoprolol Succinate (Toprol Xl -) 100 mg PO DAILY [facility] Last Admin: 06/27/17 09:27 Dose: 100 mg Oxycodone HCl (Roxicodone -) 10 mg PO Q6H PRN PRN Reason: PAIN LEVEL 6-10 Last Admin: 06/27/17 06:38 Dose: 10 mg Oxycodone HCl (Roxicodone -) 30 mg PO HS PRN PRN Reason: BACK PAIN Last Admin: 06/26/17 21:21 Dose: 30 mg Pantoprazole Sodium (Protonix -) 40 mg PO DAILY [facility] Last Admin: 06/27/17 09:26 Dose: 40 mg Polyethylene Glycol (Miralax (For Daily Use) -) 17 gm PO DAILY [facility] Potassium Chloride (K-Dur -) 40 meq PO DAILY [facility] Last Admin: 06/27/17 09:27 Dose: 40 meq Prasugrel (Effient -) 5 mg PO HS [facility] Last Admin: 06/26/17 21:21 Dose: 5 mg Ranitidine HCl (Zantac -) 150 mg PO ACDIN [facility] Last Admin: 06/26/17 15:41 Dose: 150 mg Ranolazine (Ranexa -) 1,000 mg PO BID [facility] Last Admin: 06/27/17 09:26 Dose: 1,000 mg Senna/Docusate Sodium (Pericolace -) 2 tablet PO HS PRN PRN Reason: CONSTIPATION Sertraline HCl (Zoloft -) 50 mg PO DAILY [facility] Last Admin: 06/27/17 09:26 Dose: 50 mg Sucralfate (Carafate -) 1 gm PO DAILY PRN PRN Reason: ABD PAIN Tamsulosin HCl (Flomax -) 0.4 mg PO ACDIN [facility] Last Admin: 06/26/17 15:41 Dose: 0.4 mg Warfarin Sodium (Coumadin -) 1 mg PO DAILY@1800 [facility] - Objective Vital Signs: Vital Signs Temperature 98.2 F 06/27/17 07:58 Pulse Rate 60 06/27/17 07:58 Respiratory Rate 20 06/27/17 08:00 Blood Pressure 123/69 06/27/17 07:58 O2 Sat by Pulse Oximetry (%) 96 06/27/17 08:00 Constitutional: Yes: Well Nourished, Calm Eyes: Yes: WNL HENT: Yes: WNL Neck: Yes: WNL Cardiovascular: Yes: Pulse Irregular, S1, S2 Respiratory: Yes: Diminished Extremities: Yes: WNL Edema: No Labs: CBC, BMP 06/27/17 06:10 06/27/17 06:10 INR, PTT INR 2.05 (0.82-1.09) H 06/27/17 09:10 Problem List - Problems (1) Acute coronary syndrome Code(s): I24.9 - ACUTE ISCHEMIC HEART DISEASE, UNSPECIFIED (2) Acute on chronic diastolic (congestive) heart failure Code(s): I50.33 - ACUTE ON CHRONIC DIASTOLIC (CONGESTIVE) HEART FAILURE (3) Chest pain Code(s): R07.9 - CHEST PAIN, UNSPECIFIED Qualifiers: Chest pain type: other chest pain Qualified Code(s): R07.89 - Other chest pain; R07.8 - Other chest pain (4) COPD (chronic obstructive pulmonary disease) Code(s): J44.9 - CHRONIC OBSTRUCTIVE PULMONARY DISEASE, UNSPECIFIED Qualifiers: COPD type: unspecified COPD Qualified Code(s): J44.9 - Chronic obstructive pulmonary disease, unspecified (5) Aortic stenosis Code(s): I35.0 - NONRHEUMATIC AORTIC (VALVE) STENOSIS (6) Elevated troponin Code(s): R79.89 - OTHER SPECIFIED ABNORMAL FINDINGS OF BLOOD CHEMISTRY (7) Obesity Code(s): E66.9 - OBESITY, UNSPECIFIED (8) Obstructive sleep apnea Code(s): G47.33 - OBSTRUCTIVE SLEEP APNEA (ADULT) (PEDIATRIC) (9) SOB (shortness of breath) Code(s): R06.02 - SHORTNESS OF BREATH (10) Atrial fibrillation Code(s): I48.91 - UNSPECIFIED ATRIAL FIBRILLATION (11) History of coronary artery stent placement Code(s): Z95.5 - PRESENCE OF CORONARY ANGIOPLASTY IMPLANT AND GRAFT Assessment/Plan IMP ACUTE ON CHRONIC CHF IMPROVED + TROPONINS COPD ASHD S/P MULTIPLE STENTS AFIB S/P ABLATION HTN OSAS NOT ON CPAP OBESITY AORTIC STENOSIS PARK LASIX O2 INHALED BRONCHODILATORS DAILY WTS DR MIRANDA Problem List - Problems (1) Acute coronary syndrome Code(s): I24.9 - ACUTE ISCHEMIC HEART DISEASE, UNSPECIFIED (2) Acute on chronic diastolic (congestive) heart failure Code(s): I50.33 - ACUTE ON CHRONIC DIASTOLIC (CONGESTIVE) HEART FAILURE (3) Chest pain Code(s): R07.9 - CHEST PAIN, UNSPECIFIED Qualifiers: Chest pain type: other chest pain Qualified Code(s): R07.89 - Other chest pain; R07.8 - Other chest pain (4) COPD (chronic obstructive pulmonary disease) Code(s): J44.9 - CHRONIC OBSTRUCTIVE PULMONARY DISEASE, UNSPECIFIED Qualifiers: COPD type: unspecified COPD Qualified Code(s): J44.9 - Chronic obstructive pulmonary disease, unspecified (5) Aortic stenosis Code(s): I35.0 - NONRHEUMATIC AORTIC (VALVE) STENOSIS (6) Elevated troponin Code(s): R79.89 - OTHER SPECIFIED ABNORMAL FINDINGS OF BLOOD CHEMISTRY (7) Obesity Code(s): E66.9 - OBESITY, UNSPECIFIED (8) Obstructive sleep apnea Code(s): G47.33 - OBSTRUCTIVE SLEEP APNEA (ADULT) (PEDIATRIC) (9) SOB (shortness of breath) Code(s): R06.02 - SHORTNESS OF BREATH (10) Atrial fibrillation Code(s): I48.91 - UNSPECIFIED ATRIAL FIBRILLATION (11) History of coronary artery stent placement Code(s): Z95.5 - PRESENCE OF CORONARY ANGIOPLASTY IMPLANT AND GRAFT
--- NOTE | 2017-06-27 13:02 | PN ---
Progress Note, Physician History of Present Illness: Pt seen and examined at bedside. He is awake and alert. He denies shortness of breath. - Current Medication List Current Medications: Active Medications Albuterol/Ipratropium (Duoneb -) 1 amp NEB RQID [facility] Last Admin: 06/27/17 07:35 Dose: 1 amp Amiodarone HCl (Cordarone -) 200 mg PO DAILY [facility] Last Admin: 06/27/17 09:26 Dose: 200 mg Aspirin (Asa -) 81 mg PO ACDIN [facility] Last Admin: 06/26/17 15:41 Dose: 81 mg Atorvastatin Calcium (Lipitor -) 20 mg PO HS [facility] Last Admin: 06/26/17 21:20 Dose: 20 mg Diltiazem HCl (Cardizem Cd -) 120 mg PO DAILY [facility] Last Admin: 06/27/17 09:27 Dose: 120 mg Fenofibric Acid (Trilipix -) 135 mg PO DAILY [facility] Last Admin: 06/27/17 09:26 Dose: 135 mg Furosemide (Lasix -) 40 mg PO DAILY [facility] Last Admin: 06/27/17 09:26 Dose: 40 mg Isosorbide Mononitrate (Imdur -) 120 mg PO DAILY [facility] Last Admin: 06/27/17 09:27 Dose: 120 mg Lisinopril (Prinivil) 10 mg PO ACDIN [facility] Last Admin: 06/26/17 15:41 Dose: 10 mg Magnesium Oxide (Mag-Ox -) 400 mg PO BID [facility] Last Admin: 06/27/17 09:27 Dose: 400 mg Metoprolol Succinate (Toprol Xl -) 100 mg PO DAILY [facility] Last Admin: 06/27/17 09:27 Dose: 100 mg Oxycodone HCl (Roxicodone -) 10 mg PO Q6H PRN PRN Reason: PAIN LEVEL 6-10 Last Admin: 06/27/17 06:38 Dose: 10 mg Oxycodone HCl (Roxicodone -) 30 mg PO HS PRN PRN Reason: BACK PAIN Last Admin: 06/26/17 21:21 Dose: 30 mg Pantoprazole Sodium (Protonix -) 40 mg PO DAILY [facility] Last Admin: 06/27/17 09:26 Dose: 40 mg Polyethylene Glycol (Miralax (For Daily Use) -) 17 gm PO DAILY [facility] Potassium Chloride (K-Dur -) 40 meq PO DAILY [facility] Last Admin: 06/27/17 09:27 Dose: 40 meq Prasugrel (Effient -) 5 mg PO HS [facility] Last Admin: 06/26/17 21:21 Dose: 5 mg Ranitidine HCl (Zantac -) 150 mg PO ACDIN [facility] Last Admin: 06/26/17 15:41 Dose: 150 mg Ranolazine (Ranexa -) 1,000 mg PO BID [facility] Last Admin: 06/27/17 09:26 Dose: 1,000 mg Senna/Docusate Sodium (Pericolace -) 2 tablet PO HS PRN PRN Reason: CONSTIPATION Sertraline HCl (Zoloft -) 50 mg PO DAILY [facility] Last Admin: 06/27/17 09:26 Dose: 50 mg Sucralfate (Carafate -) 1 gm PO DAILY PRN PRN Reason: ABD PAIN Tamsulosin HCl (Flomax -) 0.4 mg PO ACDIN [facility] Last Admin: 06/26/17 15:41 Dose: 0.4 mg Warfarin Sodium (Coumadin -) 1 mg PO DAILY@1800 [facility] - Objective Vital Signs: Vital Signs Temperature 98.2 F 06/27/17 07:58 Pulse Rate 60 06/27/17 07:58 Respiratory Rate 20 06/27/17 08:00 Blood Pressure 123/69 06/27/17 07:58 O2 Sat by Pulse Oximetry (%) 96 06/27/17 08:00 Constitutional: Yes: Calm Eyes: Yes: Conjunctiva Clear HENT: Yes: Atraumatic Neck: Yes: Supple Cardiovascular: Yes: S1, S2 Respiratory: Yes: CTA Bilaterally Gastrointestinal: Yes: Normal Bowel Sounds, Soft Genitourinary: Yes: WNL Musculoskeletal: Yes: WNL Edema: Yes Edema: LLE: Trace, RLE: Trace Neurological: Yes: Oriented Psychiatric: Yes: Oriented Labs: CBC, BMP 06/27/17 06:10 06/27/17 06:10 INR, PTT INR 2.05 (0.82-1.09) H 06/27/17 09:10 Assessment/Plan Current Medications Generic Name Dose Route Start Last Admin Trade Name Freq PRN Reason Stop Dose Admin Albuterol/Ipratropium 1 amp 06/24/17 12:00 06/27/17 07:35 Duoneb - NEB 1 amp RQID [facility] Administration Amiodarone HCl 200 mg 06/24/17 10:00 06/27/17 09:26 Cordarone - PO 200 mg DAILY [facility] Administration Aspirin 81 mg 06/24/17 16:30 06/26/17 15:41 Asa - PO 81 mg ACDIN [facility] Administration Atorvastatin Calcium 20 mg 06/24/17 22:00 06/26/17 21:20 Lipitor - PO 20 mg HS [facility] Administration Diltiazem HCl 120 mg 06/24/17 10:00 06/27/17 09:27 Cardizem Cd - PO 120 mg DAILY [facility] Administration Fenofibric Acid 135 mg 06/27/17 10:00 06/27/17 09:26 Trilipix - PO 135 mg DAILY [facility] Administration Furosemide 40 mg 06/27/17 10:00 06/27/17 09:26 Lasix - PO 40 mg DAILY [facility] Administration Isosorbide Mononitrate 120 mg 06/24/17 10:00 06/27/17 09:27 Imdur - PO 120 mg DAILY [facility] Administration Lisinopril 10 mg 06/24/17 16:30 06/26/17 15:41 Prinivil PO 10 mg ACDIN [facility] Administration Magnesium Oxide 400 mg 06/25/17 22:00 06/27/17 09:27 Mag-Ox - PO 400 mg BID [facility] Administration Metoprolol Succinate 100 mg 06/24/17 10:00 06/27/17 09:27 Toprol Xl - PO 100 mg DAILY [facility] Administration Oxycodone HCl 10 mg 06/24/17 08:42 06/27/17 06:38 Roxicodone - PO 10 mg Q6H PRN Administration PAIN LEVEL 6-10 Oxycodone HCl 30 mg 06/24/17 08:40 06/26/17 21:21 Roxicodone - PO 30 mg HS PRN Administration BACK PAIN Pantoprazole Sodium 40 mg 06/24/17 10:00 06/27/17 09:26 Protonix - PO 40 mg DAILY [facility] Administration Polyethylene Glycol 17 gm 06/27/17 10:00 Miralax (For Daily Use) - PO DAILY [facility] Potassium Chloride 40 meq 06/26/17 18:00 06/27/17 09:27 K-Dur - PO 40 meq DAILY [facility] Administration Prasugrel 5 mg 06/24/17 22:00 06/26/17 21:21 Effient - PO 5 mg HS [facility] Administration Ranitidine HCl 150 mg 06/24/17 16:30 06/26/17 15:41 Zantac - PO 150 mg ACDIN [facility] Administration Ranolazine 1,000 mg 06/24/17 10:00 06/27/17 09:26 Ranexa - PO 1,000 mg BID [facility] Administration Senna/Docusate Sodium 2 tablet 06/24/17 08:40 Pericolace - PO HS PRN CONSTIPATION Sertraline HCl 50 mg 06/24/17 10:00 06/27/17 09:26 Zoloft - PO 50 mg DAILY [facility] Administration Sucralfate 1 gm 06/24/17 08:40 Carafate - PO DAILY PRN ABD PAIN Tamsulosin HCl 0.4 mg 06/24/17 16:30 06/26/17 15:41 Flomax - PO 0.4 mg ACDIN [facility] Administration Warfarin Sodium 1 mg 06/27/17 18:00 Coumadin - PO DAILY@1800 [facility] Laboratory Tests 06/15/16 03/27/17 03/29/17 04:38 09:45 05:05 Creatinine 1.3 1.0 0.9 06/24/17 06/25/17 06/26/17 05:10 07:27 07:04 Creatinine 0.7 D 1.2 D 1.0 06/27/17 06:10 Creatinine 0.9 Impression 1. hypokalemia 2. hypomagnesemia 3. CAD 4. hx DC 5. CHF diastolic 6. aortic stenosis Plan - potassium is improved - cont mag supplements - monitor lytes - renal function is stabilizing - cont lasix
[2017-06-27] MEDS: ASPIRIN 81 MG CHEWABLE TABLETS PO SCH (16:38)
[2017-06-27] MEDS: LISINOPRIL 10 MG TABLET (FP) PO SCH (16:38)
[2017-06-27] MEDS: RANITIDINE HCL 150 MG TABLET (FP) PO SCH (16:38)
[2017-06-27] MEDS: TAMSULOSIN HCL 0.4 MG CAP.ER.24H (FP) PO SCH (16:38)
[2017-06-27] MEDS: WARFARIN NA 1 MG TABLET (FP) PO SCH (17:27)
[2017-06-27] MEDS: ATORVASTATIN CA 20 MG TABLET (FP) PO SCH (21:53)
[2017-06-27] MEDS: PRASUGREL HCL 5 MG TAB PO SCH (21:53)
[2017-06-28] MEDS: oxyCODONE HCL 5 MG TABLET PO PRN ×3 (05:47→18:27)
[2017-06-28 07:31] LABS: MAGNESIUM 2.1 mg/dL (1.8-2.4)
[2017-06-28] MEDS: ALBUTEROL SO4 2.5/IPRATROPIUM 0.5 INH SOL 3 ML VIAL.NEB. NEB SCH ×3 (09:00→17:00)
--- NOTE | 2017-06-28 09:33 | DS ---
Physical Examination Vital Signs: Vital Signs Temperature 97.8 F 06/28/17 07:30 Pulse Rate 63 06/28/17 07:30 Respiratory Rate 16 06/28/17 07:30 Blood Pressure 100/56 06/28/17 07:30 O2 Sat by Pulse Oximetry (%) 100 06/28/17 07:30 Findings/Remarks: abd pain epigastric--pt states its chronia has seen 2 gi doctors--discussed with daughter Cardiovascular: Yes: S1, S2 Respiratory: Yes: Regular, CTA Bilaterally Gastrointestinal: Yes: Normal Bowel Sounds, Soft, Abdomen, Obese. No: Tenderness Labs: CBC, BMP 06/27/17 06:10 06/27/17 06:10 Discharge Summary Reason For Visit: COPD, CHEST PAIN, ACUTE CHF DIASTOLIC Current Active Problems Acute coronary syndrome (Acute) Acute on chronic diastolic (congestive) heart failure (Acute) Chest pain (Acute) Demand ischemia (Acute) Hypokalemia (Acute) Leg pain (Acute) COPD (chronic obstructive pulmonary disease) (Chronic) Hospital Course: 62 year old male with midsternal chest pain , as per patient woke up with chest pain and difficulty breathing. patient took 3 baby aspirin and 2 tabs nitro with some improvement in pain. Patient had second episode and became diaphoretic and came into the ER. denies weakness, fever/ chills, edema , NV, abdominal pain, headache - Past Medical History Cardiovascular: Yes: AFIB, Aortic Insufficiency, Aortic Stenosis, CAD, CHF ( chronic diastolic), HTN, Hyperlipdemia, MD, Other (SVT) Pulmonary: Yes: COPD, Sleep Apnea Gastrointestinal: Yes: GERD Psych: Yes: Anxiety, Depression Musculoskeletal: Yes: Chronic low back pain - Past Surgical History Past Surgical History: Yes: Stent (Multiple cardiac stents; pulmonary vein ablation Rx x 2 for AF/flutter) - Problems (1) Acute coronary syndrome Assessment/Plan: -CE NEGATIVE -CONTINUE WITH MEDS -CARDIOLOGY CONSULT NOTED Code(s): I24.9 - ACUTE ISCHEMIC HEART DISEASE, UNSPECIFIED (2) Chest pain Assessment/Plan: -RESOLVED - ABOVE Code(s): R07.9 - CHEST PAIN, UNSPECIFIED Qualifiers: Chest pain type: other chest pain Qualified Code(s): R07.89 - Other chest pain; R07.8 - Other chest pain (3) COPD (chronic obstructive pulmonary disease) Assessment/Plan: -NEBS -STABLE Code(s): J44.9 - CHRONIC OBSTRUCTIVE PULMONARY DISEASE, UNSPECIFIED Qualifiers: COPD type: unspecified COPD Qualified Code(s): J44.9 - Chronic obstructive pulmonary disease, unspecified (4) Aortic stenosis Assessment/Plan: -PER CARDIO -CHECK LAST ECHO Code(s): I35.0 - NONRHEUMATIC AORTIC (VALVE) STENOSIS (5) CHF (congestive heart failure) Assessment/Plan: -ON PO LASIX -FOLLOW CLINICALLY Code(s): I50.9 - HEART FAILURE, UNSPECIFIED (6) Elevated troponin Assessment/Plan: -FOLLOW TREND Code(s): R79.89 - OTHER SPECIFIED ABNORMAL FINDINGS OF BLOOD CHEMISTRY (7) Atrial fibrillation Assessment/Plan: -FOLLOW INR -ON COUMADIN -RATE CONTROLLED -TELE Code(s): I48.91 - UNSPECIFIED ATRIAL FIBRILLATION (8) Leg pain Assessment/Plan: PROBABLY RADICULOPATHY -WILL GET DUPLEX Code(s): M79.606 - PAIN IN LEG, UNSPECIFIED (9) Abdominal Pain Assessment/Plan: -Pt states its chronic but more this am -takes bicarbonate at home -check labs -carafate qid Condition: Improved - Instructions Referrals: Bari Nolan MD [Primary Care Provider] - 1 Week Disposition: HOME - Home Medications Comprehensive Discharge Medication List: Ambulatory Orders Albuterol Sulfate [Proair Respiclick] 90 mcg IH PRN 08/22/16 Aspirin [ASA -] 81 mg PO ACDIN 08/22/16 Diltiazem HCl [Diltiazem 24Hr ER] 120 mg PO DAILY 08/22/16 Fenofibric Acid [Fibricor] 105 mg PO DAILY 08/22/16 Isosorbide Mononitrate [Isosorbide Mononitrate ER] 120 mg PO DAILY 08/22/16 Linaclotide [Linzess] 290 mcg PO BID 08/22/16 Lisinopril 10 mg PO ACDIN 08/22/16 Metoclopramide HCl [Reglan] 10 mg PO PRN 08/22/16 Metoprolol Succinate [Toprol Xl] 100 mg PO DAILY 08/22/16 Nitroglycerin [place] [Nitrolingual [place] -] 1 spray TL PRN 08/22/16 Oxycodone HCl 30 mg PO HS PRN 08/22/16 Oxycodone HCl/Acetaminophen [Percocet 10-325 mg Tablet] 1 each PO BID PRN Pravastatin Sodium [Pravachol -] 80 mg PO HS 08/22/16 Ranitidine HCl [Zantac] 150 mg PO ACDIN 08/22/16 Ranolazine [Ranexa] 1,000 mg PO BID 08/22/16 Tamsulosin HCl [Flomax] 0.4 mg PO ACDIN 08/22/16 Tiotropium Br/Olodaterol HCl [Stiolto Respimat Inhal [place]] 2.5 gm IH BID Beclomethasone Dipropionate [Qvar] 2 puff IH BID 01/16/17 Prasugrel HCl [Effient] 5 mg PO HS 01/16/17 Amiodarone HCl [Cordarone -] 200 mg PO DAILY 03/27/17 Hyoscyamine Sulfate 0.125 mg PO ASDIR PRN 03/27/17 Omeprazole 20 mg PO DAILY 03/27/17 Sertraline HCl 50 mg PO DAILY 03/27/17 Furosemide [Lasix -] 80 mg PO DAILY tablet 03/31/17 Sennosides/Docusate Sodium [Pericolace -] 2 tablet PO HS PRN tablet 03/31/17 Albuterol 2.5/Ipratropium 0.5 [Duoneb -] 1 amp NEB RQID amp 06/28/17 Magnesium Oxide [Mag-Ox -] 400 mg PO BID tablet 06/28/17 Pantoprazole Sodium [Protonix -] 40 mg PO DAILY #30 tablet.ec 06/28/17 Polyethylene Glycol 3350 [Miralax 119 gm Btl -] 17 gm PO DAILY bottle 06/28/17 Potassium Chloride [K-Dur -] 40 meq PO DAILY tablet.er 06/28/17 Sucralfate [Carafate -] 1 gm PO QID tablet 06/28/17 Warfarin Na [Coumadin -] 1 mg PO DAILY@1800 tablet 06/28/17
[2017-06-28] MEDS: SERTRALINE HCL 50 MG TABLET (FP) PO SCH (09:43)
[2017-06-28] MEDS: POTASSIUM CHLORIDE TABS 20 MEQ TABLET.ER (FP) PO SCH (09:43)
[2017-06-28] MEDS: FENOFIBRIC ACID 135 MG CAP PO SCH (09:43)
[2017-06-28] MEDS: RANOLAZINE E.R. 1,000 MG TABLET (FP) PO SCH (09:43)
[2017-06-28] MEDS: ISOSORBIDE MONONITRATE 60 MG TAB.SR.24H (FP) PO SCH (09:43)
[2017-06-28] MEDS: MAGNESIUM OXIDE 400 MG TABLET (FP) PO SCH (09:44)
[2017-06-28] MEDS: PANTOPRAZOLE 40 MG TABLET (FP) PO SCH (09:44)
[2017-06-28] MEDS: AMIODARONE HCL 200 MG TABLET (FP) PO SCH (09:44)
[2017-06-28] MEDS: FUROSEMIDE 40 MG TABLET (FP) PO SCH (09:44)
[2017-06-28] MEDS: POLYETHYLENE GLYCOL 3350 119 GM BTL PO SCH (09:46)
[2017-06-28 10:04] LABS: BASO % 0.5 % (0-2.0); EOS % 3.6 % (0-4.5); HEMATOCRIT 31.5 % (35.4-49); LYMPH % 21.4 % (8-40); MCH 29.6 pg (25.7-33.7); MEAN CELL VOLUME 84.6 fl (80-96); MEAN PLT VOLUME 7.7 fl (7.5-11.1); MONO % 10.7 % (3.8-10.2); NEUT % 63.8 % (42.8-82.8); PLATELET COUNT 286 K/MM3 (134-434); RBC 3.72 M/mm3 (4.00-5.60); RDW 13.9 % (11.9-15.9); WHITE BLOOD COUNT 7.3 K/mm3 (4.0-10.0)
--- NOTE | 2017-06-28 10:35 | PN ---
Progress Note, Physician History of Present Illness: pulmonary alert,nad,-cp,-sob - Current Medication List Current Medications: Active Medications Albuterol/Ipratropium (Duoneb -) 1 amp NEB RQID [facility] Last Admin: 06/28/17 09:00 Dose: 1 amp Amiodarone HCl (Cordarone -) 200 mg PO DAILY [facility] Last Admin: 06/28/17 09:44 Dose: 200 mg Aspirin (Asa -) 81 mg PO ACDIN [facility] Last Admin: 06/27/17 16:38 Dose: 81 mg Atorvastatin Calcium (Lipitor -) 20 mg PO HS [facility] [place] Last Admin: 06/27/17 21:53 Dose: 20 mg Diltiazem HCl (Cardizem Cd -) 120 mg PO DAILY [facility] [place] Last Admin: 06/28/17 09:44 Dose: 120 mg Fenofibric Acid (Trilipix -) 135 mg PO DAILY [facility] [place] Last Admin: 06/28/17 09:43 Dose: 135 mg Furosemide (Lasix -) 40 mg PO DAILY [facility] [place] Last Admin: 06/28/17 09:44 Dose: 40 mg Isosorbide Mononitrate (Imdur -) 120 mg PO DAILY [facility] [place] Last Admin: 06/28/17 09:43 Dose: 120 mg Lisinopril (Prinivil) 10 mg PO ACDIN [facility] [place] Last Admin: 06/27/17 16:38 Dose: 10 mg Magnesium Oxide (Mag-Ox -) 400 mg PO BID [facility] [place] Last Admin: 06/28/17 09:44 Dose: 400 mg Metoprolol Succinate (Toprol Xl -) 100 mg PO DAILY [facility] [place] Last Admin: 06/28/17 09:43 Dose: 100 mg Oxycodone HCl (Roxicodone -) 10 mg PO Q6H PRN PRN Reason: PAIN LEVEL 6-10 Last Admin: 06/28/17 05:47 Dose: 10 mg Oxycodone HCl (Roxicodone -) 30 mg PO HS PRN PRN Reason: BACK PAIN Last Admin: 06/27/17 21:54 Dose: 30 mg Pantoprazole Sodium (Protonix -) 40 mg PO DAILY [facility] [place] Last Admin: 06/28/17 09:44 Dose: 40 mg Polyethylene Glycol (Miralax (For Daily Use) -) 17 gm PO DAILY [facility] [place] Last Admin: 06/28/17 09:46 Dose: 17 grams Potassium Chloride (K-Dur -) 40 meq PO DAILY [facility] [place] Last Admin: 06/28/17 09:43 Dose: 40 meq Prasugrel (Effient -) 5 mg PO HS [facility] [place] Last Admin: 06/27/17 21:53 Dose: 5 mg Ranitidine HCl (Zantac -) 150 mg PO ACDIN [facility] [place] Last Admin: 06/27/17 16:38 Dose: 150 mg Ranolazine (Ranexa -) 1,000 mg PO BID [facility] [place] Last Admin: 06/28/17 09:43 Dose: 1,000 mg Senna/Docusate Sodium (Pericolace -) 2 tablet PO HS PRN PRN Reason: CONSTIPATION Sertraline HCl (Zoloft -) 50 mg PO DAILY [facility] [place] Last Admin: 06/28/17 09:43 Dose: 50 mg Sucralfate (Carafate -) 1 gm PO QID [facility] [place] Tamsulosin HCl (Flomax -) 0.4 mg PO ACDIN [facility] [place] Last Admin: 06/27/17 16:38 Dose: 0.4 mg Warfarin Sodium (Coumadin -) 1 mg PO DAILY@1800 [facility] [place] Last Admin: 06/27/17 17:27 Dose: 1 mg - Objective Vital Signs: Vital Signs Temperature 97.8 F 06/28/17 07:30 Pulse Rate 63 06/28/17 07:30 Respiratory Rate 16 06/28/17 07:30 Blood Pressure 100/56 06/28/17 07:30 O2 Sat by Pulse Oximetry (%) 100 06/28/17 07:30 Constitutional: Yes: Well Nourished, Calm Eyes: Yes: WNL HENT: Yes: WNL Neck: Yes: WNL Cardiovascular: Yes: Pulse Irregular, S1, S2 Respiratory: Yes: CTA Bilaterally Gastrointestinal: Yes: Normal Bowel Sounds, Soft Extremities: Yes: WNL Edema: No Labs: CBC, BMP 06/28/17 06:35 Problem List - Problems (1) Acute coronary syndrome Code(s): I24.9 - ACUTE ISCHEMIC HEART DISEASE, UNSPECIFIED (2) Acute on chronic diastolic (congestive) heart failure Code(s): I50.33 - ACUTE ON CHRONIC DIASTOLIC (CONGESTIVE) HEART FAILURE (3) Chest pain Code(s): R07.9 - CHEST PAIN, UNSPECIFIED Qualifiers: Chest pain type: other chest pain Qualified Code(s): R07.89 - Other chest pain; R07.8 - Other chest pain (4) COPD (chronic obstructive pulmonary disease) Code(s): J44.9 - CHRONIC OBSTRUCTIVE PULMONARY DISEASE, UNSPECIFIED Qualifiers: COPD type: unspecified COPD Qualified Code(s): J44.9 - Chronic obstructive pulmonary disease, unspecified (5) Aortic stenosis Code(s): I35.0 - NONRHEUMATIC AORTIC (VALVE) STENOSIS (6) Elevated troponin Code(s): R79.89 - OTHER SPECIFIED ABNORMAL FINDINGS OF BLOOD CHEMISTRY (7) Obesity Code(s): E66.9 - OBESITY, UNSPECIFIED (8) Obstructive sleep apnea Code(s): G47.33 - OBSTRUCTIVE SLEEP APNEA (ADULT) (PEDIATRIC) (9) SOB (shortness of breath) Code(s): R06.02 - SHORTNESS OF BREATH (10) Atrial fibrillation Code(s): I48.91 - UNSPECIFIED ATRIAL FIBRILLATION (11) History of coronary artery stent placement Code(s): Z95.5 - PRESENCE OF CORONARY ANGIOPLASTY IMPLANT AND GRAFT Assessment/Plan IMP ACUTE ON CHRONIC CHF IMPROVED + TROPONINS COPD ASHD S/P MULTIPLE STENTS AFIB S/P ABLATION HTN OSAS NOT ON CPAP OBESITY AORTIC STENOSIS PARK LASIX PO O2 INHALED BRONCHODILATORS DAILY WTS DR MIRANDA Problem List - Problems (1) Acute coronary syndrome Code(s): I24.9 - ACUTE ISCHEMIC HEART DISEASE, UNSPECIFIED (2) Acute on chronic diastolic (congestive) heart failure Code(s): I50.33 - ACUTE ON CHRONIC DIASTOLIC (CONGESTIVE) HEART FAILURE (3) Chest pain Code(s): R07.9 - CHEST PAIN, UNSPECIFIED Qualifiers: Chest pain type: other chest pain Qualified Code(s): R07.89 - Other chest pain; R07.8 - Other chest pain (4) COPD (chronic obstructive pulmonary disease) Code(s): J44.9 - CHRONIC OBSTRUCTIVE PULMONARY DISEASE, UNSPECIFIED Qualifiers: COPD type: unspecified COPD Qualified Code(s): J44.9 - Chronic obstructive pulmonary disease, unspecified (5) Aortic stenosis Code(s): I35.0 - NONRHEUMATIC AORTIC (VALVE) STENOSIS (6) Elevated troponin Code(s): R79.89 - OTHER SPECIFIED ABNORMAL FINDINGS OF BLOOD CHEMISTRY (7) Obesity Code(s): E66.9 - OBESITY, UNSPECIFIED (8) Obstructive sleep apnea Code(s): G47.33 - OBSTRUCTIVE SLEEP APNEA (ADULT) (PEDIATRIC) (9) SOB (shortness of breath) Code(s): R06.02 - SHORTNESS OF BREATH (10) Atrial fibrillation Code(s): I48.91 - UNSPECIFIED ATRIAL FIBRILLATION (11) History of coronary artery stent placement Code(s): Z95.5 - PRESENCE OF CORONARY ANGIOPLASTY IMPLANT AND GRAFT
[2017-06-28] MEDS: SUCRALFATE 1 GM TABLET (FP) PO SCH ×3 (11:14→17:59)
[2017-06-28 12:50] LABS: ALBUMIN 3.3 g/dl (3.4-5.0); AMYLASE 27 U/L (25-115); ANION GAP 4 (8-16); BILIRUBIN,TOTAL 0.5 mg/dL (0.2-1.0); BLOOD UREA NITROGEN 14 mg/dL (7-18); CALCIUM 8.9 mg/dL (8.5-10.1); CHLORIDE 99 mmol/L (98-107); CO2 32 mmol/L (21-32); CREATININE 0.9 mg/dL (0.7-1.3); GLUCOSE,RANDOM 83 mg/dL (74-106); LIPASE 47 U/L (73-393); POTASSIUM 4.2 mmol/L (3.5-5.1); SGOT/AST 15 U/L (15-37); SGPT/ALT 17 U/L (12-78); SODIUM 135 mmol/L (136-145); TOT PROT 6.8 g/dl (6.4-8.2)
[2017-06-28 12:54] LABS: ALK PHOS 42 U/L (45-117)
--- NOTE | 2017-06-28 14:02 | PN ---
Progress Note, Physician History of Present Illness: Pt seen and examined at bedside. He is awake and alert. He denies shortness of breath. He denies dysuria or hematuria. - Current Medication List Current Medications: Active Medications Albuterol/Ipratropium (Duoneb -) 1 amp NEB RQID [facility] Last Admin: 06/28/17 09:00 Dose: 1 amp Amiodarone HCl (Cordarone -) 200 mg PO DAILY [facility] Last Admin: 06/28/17 09:44 Dose: 200 mg Aspirin (Asa -) 81 mg PO ACDIN [facility] Last Admin: 06/27/17 16:38 Dose: 81 mg Atorvastatin Calcium (Lipitor -) 20 mg PO HS [facility] Last Admin: 06/27/17 21:53 Dose: 20 mg Diltiazem HCl (Cardizem Cd -) 120 mg PO DAILY [facility] Last Admin: 06/28/17 09:44 Dose: 120 mg Fenofibric Acid (Trilipix -) 135 mg PO DAILY [facility] Last Admin: 06/28/17 09:43 Dose: 135 mg Furosemide (Lasix -) 40 mg PO DAILY [facility] Last Admin: 06/28/17 09:44 Dose: 40 mg Isosorbide Mononitrate (Imdur -) 120 mg PO DAILY [facility] Last Admin: 06/28/17 09:43 Dose: 120 mg Lisinopril (Prinivil) 10 mg PO ACDIN [facility] Last Admin: 06/27/17 16:38 Dose: 10 mg Magnesium Oxide (Mag-Ox -) 400 mg PO BID [facility] Last Admin: 06/28/17 09:44 Dose: 400 mg Metoprolol Succinate (Toprol Xl -) 100 mg PO DAILY [facility] Last Admin: 06/28/17 09:43 Dose: 100 mg Oxycodone HCl (Roxicodone -) 10 mg PO Q6H PRN PRN Reason: PAIN LEVEL 6-10 Last Admin: 06/28/17 12:13 Dose: 10 mg Oxycodone HCl (Roxicodone -) 30 mg PO HS PRN PRN Reason: BACK PAIN Last Admin: 06/27/17 21:54 Dose: 30 mg Pantoprazole Sodium (Protonix -) 40 mg PO DAILY [facility] Last Admin: 06/28/17 09:44 Dose: 40 mg Polyethylene Glycol (Miralax (For Daily Use) -) 17 gm PO DAILY [facility] Last Admin: 06/28/17 09:46 Dose: 17 grams Potassium Chloride (K-Dur -) 40 meq PO DAILY [facility] Last Admin: 06/28/17 09:43 Dose: 40 meq Prasugrel (Effient -) 5 mg PO HS [facility] Last Admin: 06/27/17 21:53 Dose: 5 mg Ranitidine HCl (Zantac -) 150 mg PO ACDIN [facility] Last Admin: 06/27/17 16:38 Dose: 150 mg Ranolazine (Ranexa -) 1,000 mg PO BID [facility] Last Admin: 06/28/17 09:43 Dose: 1,000 mg Senna/Docusate Sodium (Pericolace -) 2 tablet PO HS PRN PRN Reason: CONSTIPATION Sertraline HCl (Zoloft -) 50 mg PO DAILY [facility] Last Admin: 06/28/17 09:43 Dose: 50 mg Sucralfate (Carafate -) 1 gm PO QID [facility] Last Admin: 06/28/17 13:48 Dose: 1 gm Tamsulosin HCl (Flomax -) 0.4 mg PO ACDIN [facility] Last Admin: 06/27/17 16:38 Dose: 0.4 mg Warfarin Sodium (Coumadin -) 1 mg PO DAILY@1800 [facility] Last Admin: 06/27/17 17:27 Dose: 1 mg - Objective Vital Signs: Vital Signs Temperature 97.8 F 06/28/17 07:30 Pulse Rate 63 06/28/17 07:30 Respiratory Rate 16 06/28/17 07:30 Blood Pressure 100/56 06/28/17 07:30 O2 Sat by Pulse Oximetry (%) 100 06/28/17 07:30 Constitutional: Yes: Calm Eyes: Yes: Conjunctiva Clear HENT: Yes: Atraumatic Neck: Yes: Supple Cardiovascular: Yes: S1, S2 Respiratory: Yes: CTA Bilaterally Gastrointestinal: Yes: Soft, Abdomen, Obese Genitourinary: Yes: WNL Musculoskeletal: Yes: WNL Edema: No Neurological: Yes: Oriented Psychiatric: Yes: Oriented Labs: CBC, BMP 06/28/17 06:35 06/28/17 06:35 INR, PTT INR 2.05 (0.82-1.09) H 06/27/17 09:10 Assessment/Plan Current Medications Generic Name Dose Route Start Last Admin Trade Name Freq PRN Reason Stop Dose Admin Albuterol/Ipratropium 1 amp 06/24/17 12:00 06/28/17 09:00 Duoneb - NEB 1 amp RQID [facility] Administration Amiodarone HCl 200 mg 06/24/17 10:00 06/28/17 09:44 Cordarone - PO 200 mg DAILY [facility] Administration Aspirin 81 mg 06/24/17 16:30 06/27/17 16:38 Asa - PO 81 mg ACDIN [facility] Administration Atorvastatin Calcium 20 mg 06/24/17 22:00 06/27/17 21:53 Lipitor - PO 20 mg HS [facility]Y Administration Diltiazem HCl 120 mg 06/24/17 10:00 06/28/17 09:44 Cardizem Cd - PO 120 mg DAILY [facility] Administration Fenofibric Acid 135 mg 06/27/17 10:00 06/28/17 09:43 Trilipix - PO 135 mg DAILY [facility] Administration Furosemide 40 mg 06/27/17 10:00 06/28/17 09:44 Lasix - PO 40 mg DAILY [facility] Administration Isosorbide Mononitrate 120 mg 06/24/17 10:00 06/28/17 09:43 Imdur - PO 120 mg DAILY [facility] Administration Lisinopril 10 mg 06/24/17 16:30 06/27/17 16:38 Prinivil PO 10 mg ACDIN [facility] Administration Magnesium Oxide 400 mg 06/25/17 22:00 06/28/17 09:44 Mag-Ox - PO 400 mg BID [facility] Administration Metoprolol Succinate 100 mg 06/24/17 10:00 06/28/17 09:43 Toprol Xl - PO 100 mg DAILY [facility] Administration Oxycodone HCl 10 mg 06/24/17 08:42 06/28/17 12:13 Roxicodone - PO 10 mg Q6H PRN Administration PAIN LEVEL 6-10 Oxycodone HCl 30 mg 06/24/17 08:40 06/27/17 21:54 Roxicodone - PO 30 mg HS PRN Administration BACK PAIN Pantoprazole Sodium 40 mg 06/24/17 10:00 06/28/17 09:44 Protonix - PO 40 mg DAILY [facility] Administration Polyethylene Glycol 17 gm 06/27/17 10:00 06/28/17 09:46 Miralax (For Daily Use) - PO 17 grams DAILY [facility] Administration Potassium Chloride 40 meq 06/26/17 18:00 06/28/17 09:43 K-Dur - PO 40 meq DAILY [facility] Administration Prasugrel 5 mg 06/24/17 22:00 06/27/17 21:53 Effient - PO 5 mg HS [facility] Administration Ranitidine HCl 150 mg 06/24/17 16:30 06/27/17 16:38 Zantac - PO 150 mg ACDIN [facility] Administration Ranolazine 1,000 mg 06/24/17 10:00 06/28/17 09:43 Ranexa - PO 1,000 mg BID [facility] Administration Senna/Docusate Sodium 2 tablet 06/24/17 08:40 Pericolace - PO HS PRN CONSTIPATION Sertraline HCl 50 mg 06/24/17 10:00 06/28/17 09:43 Zoloft - PO 50 mg DAILY [facility] Administration Sucralfate 1 gm 06/28/17 10:00 06/28/17 13:48 Carafate - PO 1 gm QID [facility] Administration Tamsulosin HCl 0.4 mg 06/24/17 16:30 06/27/17 16:38 Flomax - PO 0.4 mg ACDIN [facility] Administration Warfarin Sodium 1 mg 06/27/17 18:00 06/27/17 17:27 Coumadin - PO 1 mg DAILY@1800 [facility] Administration Impression 1. hypokalemia 2. hypomagnesemia 3. CAD 4. hx ND 5. CHF diastolic 6. aortic stenosis Plan - potassium and mag are improved - renal function is stable - monitor lytes as outpt if discharged today - cont lasix and monitor volume status
--- NOTE | 2017-06-28 14:32 | PN ---
Progress Note, Physician Chief Complaint: Pt A&Ox3; feels miuch better (no chest or abdominal pain; no dyspnea). History of Present Illness: 62 year old male (fatimah Lopez) with PMHx CAD-->coronary stents, diastolic CHF with moderate aortic stenosis, morbid truncal obesity, sedentary lifestyle, HTN , hyperlipidemia, anxiety, PAF-->ablation Rx x 2, now admitted with midsternal chest pain that began when he got up to go to the bathroom; it was felt in the lower sternal and upper abdominal area, waxed and waned, and felt better after taking sl NTG x 2 and 3 baby aspirins. He denies weakness, diaphoresis, fever/ chills, edema , NV, abdominal pain, headache - Current Medication List Current Medications: Active Medications Albuterol/Ipratropium (Duoneb -) 1 amp NEB RQID [facility] Last Admin: 06/28/17 13:00 Dose: 1 amp Amiodarone HCl (Cordarone -) 200 mg PO DAILY [facility] Last Admin: 06/28/17 09:44 Dose: 200 mg Aspirin (Asa -) 81 mg PO ACDIN [facility] Last Admin: 06/27/17 16:38 Dose: 81 mg Atorvastatin Calcium (Lipitor -) 20 mg PO HS [facility] Last Admin: 06/27/17 21:53 Dose: 20 mg Diltiazem HCl (Cardizem Cd -) 120 mg PO DAILY [facility] Last Admin: 06/28/17 09:44 Dose: 120 mg Fenofibric Acid (Trilipix -) 135 mg PO DAILY [facility] Last Admin: 06/28/17 09:43 Dose: 135 mg Furosemide (Lasix -) 40 mg PO DAILY [facility] Last Admin: 06/28/17 09:44 Dose: 40 mg Isosorbide Mononitrate (Imdur -) 120 mg PO DAILY [facility] Last Admin: 06/28/17 09:43 Dose: 120 mg Lisinopril (Prinivil) 10 mg PO ACDIN [facility] Last Admin: 06/27/17 16:38 Dose: 10 mg Magnesium Oxide (Mag-Ox -) 400 mg PO BID [facility] Last Admin: 06/28/17 09:44 Dose: 400 mg Metoprolol Succinate (Toprol Xl -) 100 mg PO DAILY [facility] Last Admin: 06/28/17 09:43 Dose: 100 mg Oxycodone HCl (Roxicodone -) 10 mg PO Q6H PRN PRN Reason: PAIN LEVEL 6-10 Last Admin: 06/28/17 12:13 Dose: 10 mg Oxycodone HCl (Roxicodone -) 30 mg PO HS PRN PRN Reason: BACK PAIN Last Admin: 06/27/17 21:54 Dose: 30 mg Pantoprazole Sodium (Protonix -) 40 mg PO DAILY [facility] Last Admin: 06/28/17 09:44 Dose: 40 mg Polyethylene Glycol (Miralax (For Daily Use) -) 17 gm PO DAILY [facility] Last Admin: 06/28/17 09:46 Dose: 17 grams Potassium Chloride (K-Dur -) 40 meq PO DAILY [facility] Last Admin: 06/28/17 09:43 Dose: 40 meq Prasugrel (Effient -) 5 mg PO HS [facility] Last Admin: 06/27/17 21:53 Dose: 5 mg Ranitidine HCl (Zantac -) 150 mg PO ACDIN [facility] Last Admin: 06/27/17 16:38 Dose: 150 mg Ranolazine (Ranexa -) 1,000 mg PO BID [facility] Last Admin: 06/28/17 09:43 Dose: 1,000 mg Senna/Docusate Sodium (Pericolace -) 2 tablet PO HS PRN PRN Reason: CONSTIPATION Sertraline HCl (Zoloft -) 50 mg PO DAILY [facility] Last Admin: 06/28/17 09:43 Dose: 50 mg Sucralfate (Carafate -) 1 gm PO QID [facility] Last Admin: 06/28/17 13:48 Dose: 1 gm Tamsulosin HCl (Flomax -) 0.4 mg PO ACDIN [facility] Last Admin: 06/27/17 16:38 Dose: 0.4 mg Warfarin Sodium (Coumadin -) 1 mg PO DAILY@1800 [facility] Last Admin: 06/27/17 17:27 Dose: 1 mg - Objective Vital Signs: Vital Signs Temperature 98.1 F 06/28/17 14:15 Pulse Rate 54 L 06/28/17 14:15 Respiratory Rate 18 06/28/17 14:15 Blood Pressure 123/63 06/28/17 14:15 O2 Sat by Pulse Oximetry (%) 100 06/28/17 07:30 Constitutional: Yes: Calm Eyes: Yes: WNL HENT: Yes: WNL Neck: Yes: WNL Cardiovascular: Yes: S1, S2 (split) Respiratory: Yes: Regular Gastrointestinal: Yes: Soft, Abdomen, Obese ...Rectal Exam: Yes: Deferred Genitourinary: No: Anuria Musculoskeletal: Yes: WNL Extremities: Yes: WNL Edema: No Peripheral Pulses WNL: Yes Integumentary: Yes: WNL Neurological: Yes: WNL Psychiatric: Yes: Other (anxiety) Labs: CBC, BMP 06/28/17 06:35 06/28/17 06:35 INR, PTT INR 2.05 (0.82-1.09) H 06/27/17 09:10 Abnormal Lab Results 06/28/17 06/28/17 06:35 06:35 RBC 3.72 L Hgb 11.0 L Hct 31.5 L Monocytes % 10.7 H Sodium 135 L Anion Gap 4 L Alkaline Phosphatase 42 L Albumin 3.3 L Lipase 47 L - ....Imaging Other: Other (telemetry: NSR) Problem List - Problems (1) Acute on chronic diastolic (congestive) heart failure Code(s): I50.33 - ACUTE ON CHRONIC DIASTOLIC (CONGESTIVE) HEART FAILURE (2) COPD (chronic obstructive pulmonary disease) Code(s): J44.9 - CHRONIC OBSTRUCTIVE PULMONARY DISEASE, UNSPECIFIED Qualifiers: COPD type: unspecified COPD Qualified Code(s): J44.9 - Chronic obstructive pulmonary disease, unspecified (3) Aortic stenosis Assessment/Plan: moderate ; normal LVEF. Code(s): I35.0 - NONRHEUMATIC AORTIC (VALVE) STENOSIS (4) Atypical chest pain Assessment/Plan: TNI negative x2. EKG: no acute STT changes. Telemetry: no arrhythmias. INR 7-->2.06. From a cardaic perspective, pt may be discharged home and folllowed as outpatient. As discussed with pt, his , and his daughter, pt would benefit from cardiac rehabilitation, which will be established as an outpatient. Code(s): R07.89 - OTHER CHEST PAIN (5) Obesity Code(s): E66.9 - OBESITY, UNSPECIFIED (6) PAF (paroxysmal atrial fibrillation) Assessment/Plan: On metoprolol ER. (Will disucss with pt's EP regarding whether amiodarone may be discontinued, as its long-term use may be deleterious on a number of leverls). On warfarin: INR now therapeutic. at 2.06. Code(s): I48.0 - PAROXYSMAL ATRIAL FIBRILLATION
[2017-06-28] MEDS: RANITIDINE HCL 150 MG TABLET (FP) PO SCH (16:48)
[2017-06-28] MEDS: LISINOPRIL 10 MG TABLET (FP) PO SCH (16:48)
[2017-06-28] MEDS: TAMSULOSIN HCL 0.4 MG CAP.ER.24H (FP) PO SCH (16:48)
[2017-06-28] MEDS: ASPIRIN 81 MG CHEWABLE TABLETS PO SCH (16:48)
[2017-06-28] MEDS: WARFARIN NA 1 MG TABLET (FP) PO SCH (17:59)
[2017-06-28 18:59] VITALS: BP 105/44; PULSE 55; TEMP 98.8
== END 2017-06-28 18:53 | disposition home or self-care (01) | DRG 292 ==
LOC: JER 05:01 → JERBED 06:35 → J4W 08:59
PROVIDERS: ADMIT Internal Medicine; ATTEND Family Medicine
DX: I11.0 Hypertensive heart disease with heart failure (principal); I24.9 Acute ischemic heart disease, unspecified; N17.9 Acute kidney failure, unspecified; I24.8 Other forms of acute ischemic heart disease; I50.33 Acute on chronic diastolic (congestive) heart failure; I25.110 Atherosclerotic heart disease of native coronary artery with unstable angina pectoris; I48.0 Paroxysmal atrial fibrillation; I25.2 Old myocardial infarction; E83.42 Hypomagnesemia; K21.9 Gastro-esophageal reflux disease without esophagitis; E78.00 Pure hypercholesterolemia, unspecified; M79.606 Pain in leg, unspecified; E66.8 Other obesity; Z68.37 Body mass index [BMI] 37.0-37.9, adult; R07.89 Other chest pain; F41.8 Other specified anxiety disorders; I35.0 Nonrheumatic aortic (valve) stenosis; R10.9 Unspecified abdominal pain; M54.5 Low back pain; R79.89 Other specified abnormal findings of blood chemistry; G47.33 Obstructive sleep apnea (adult) (pediatric); J44.9 Chronic obstructive pulmonary disease, unspecified; E87.6 Hypokalemia; Z95.5 Presence of coronary angioplasty implant and graft
CPT/HCPCS: 36415; 71045-TC-FY; 80053; 80061; 81003; 82150; 82550; 83036; 83690; 83721; 83735; 83880; 84484; 85025; 85610; 93005; 93010; 93970-TC; 94640; 97116-GP; 97161-GP; 99285-25; J7620

== ENCOUNTER 2017-07-14 12:48 | Inpatient (IN) | payer OTHER ==
[2017-07-14 13:04] VITALS: BMI 36.8
[2017-07-14] MEDS ORDERED: ALBUTEROL SO4 2.5/IPRATROPIUM 0.5 INH SOL 3 ML VIAL.NEB. NEB ONE ×2 (13:19→13:24)
[2017-07-14] MEDS ORDERED: FUROSEMIDE 40 MG/4 ML INJECTABLE VIAL IVPUSH ONE (13:25)
[2017-07-14 13:26] LABS: BASO % 0.5 % (0-2.0); EOS % 2.6 % (0-4.5); HEMATOCRIT 33.5 % (35.4-49); HEMOGLOBIN 11.3 GM/dL (11.7-16.9); MCH 28.5 pg (25.7-33.7); MCHC 33.7 g/dl (32.0-35.9); MEAN CELL VOLUME 84.5 fl (80-96); MEAN PLT VOLUME 7.5 fl (7.5-11.1); MONO % 6.6 % (3.8-10.2); NEUT % 78.3 % (42.8-82.8); PLATELET COUNT 204 K/MM3 (134-434); RBC 3.97 M/mm3 (4.00-5.60)
[2017-07-14] MEDS ORDERED: FUROSEMIDE 40 MG/4 ML INJECTABLE VIAL ONE (13:28)
[2017-07-14] MEDS ORDERED: NITROGLYCERIN 25MG/D5W 250ML 25 MG/250 ML ML IVPB ONE ×2 (13:28)
[2017-07-14] MEDS: NITROGLYCERIN 25MG/D5W 250ML 25 MG/250 ML ML IVPB SCH (13:41)
[2017-07-14 13:43] LABS: INR 1.37 (0.82-1.09); PROTHROMBIN TIME (PATIENT) 15.5 SEC (9.7-13.0)
[2017-07-14 13:53] LABS: ALBUMIN 3.7 g/dl (3.4-5.0); ALK PHOS 36 U/L (45-117); ANION GAP 7 (8-16); BILIRUBIN,TOTAL 0.5 mg/dL (0.2-1.0); BLOOD UREA NITROGEN 14 mg/dL (7-18); CALCIUM 8.7 mg/dL (8.5-10.1); CHLORIDE 102 mmol/L (98-107); CO2 30 mmol/L (21-32); GLUCOSE,RANDOM 98 mg/dL (74-106); POTASSIUM 3.5 mmol/L (3.5-5.1); SGOT/AST 11 U/L (15-37); SGPT/ALT 14 U/L (12-78); SODIUM 139 mmol/L (136-145); TOT PROT 7.2 g/dl (6.4-8.2)
--- NOTE | 2017-07-14 14:01 | EKG ---
Test Reason : Blood Pressure : / mmHG Vent. Rate : 068 BPM Atrial Rate : 068 BPM P-R Int : 226 ms QRS Dur : 172 ms QT Int : 492 ms P-R-T Axes : 064 -85 031 degrees QTc Int : 523 ms SINUS RHYTHM WITH 1ST DEGREE A-V BLOCK RIGHT BUNDLE BRANCH BLOCK LEFT ANTERIOR FASCICULAR BLOCK BIFASCICULAR BLOCK LATERAL INFARCT , AGE UNDETERMINED POSSIBLE INFERIOR INFARCT , AGE UNDETERMINED ABNORMAL ECG WHEN COMPARED WITH ECG OF 24-JUN-2017 11:30, ME INTERVAL HAS INCREASED Confirmed by JADA ROMERO MD ([id number]) on 07/14/2017 2:01:22 PM Referred By: Confirmed By:JADA ROMERO MD
--- NOTE | 2017-07-14 14:23 | PDOC ---
History of Present Illness - General Chief Complaint: Chest Pain Stated Complaint: CHEST PAIN Time Seen by Provider: 07/14/17 13:03 History Source: Patient Exam Limitations: No Limitations - History of Present Illness Initial Comments: 07/14/17 14:17 Patient is a 62M with history of afib, aortic stenosis, CF, HTN, HLD, CA, SVT, COPD and GERD here today complaining of chest pain. Patient states that he started feelng short of breath with a stabbing pain in the left side of his chest that was relieved with home nitroglycerin. Systolic BP was initially 200. Endorses associated chills and nausea. Denies fevers and chills. Denies leg swelling and history of blood clots. Patient reports compliance with his medications. Past History - Past Medical History Allergies/Adverse Reactions: Allergies Allergy/AdvReac Type Severity Reaction Status Date / Time levofloxacin [From Levaquin] Allergy Intermediate Swelling Verified 06/24/17 05: 12 Home Medications: Ambulatory Orders Albuterol Sulfate [Proair Respiclick] 90 mcg IH PRN 08/22/16 Aspirin [ASA -] 81 mg PO ACDIN 08/22/16 Diltiazem HCl [Diltiazem 24Hr ER] 120 mg PO DAILY 08/22/16 Fenofibric Acid [Fibricor] 105 mg PO DAILY 08/22/16 Isosorbide Mononitrate [Isosorbide Mononitrate ER] 120 mg PO DAILY 08/22/16 Linaclotide [Linzess] 290 mcg PO BID 08/22/16 Lisinopril 10 mg PO ACDIN 08/22/16 Metoclopramide HCl [Reglan] 10 mg PO PRN 08/22/16 Metoprolol Succinate [Toprol Xl] 100 mg PO DAILY 08/22/16 Nitroglycerin Delmar [Nitrolingual Delmar -] 1 spray TL PRN PRN 08/22/16 Oxycodone HCl 30 mg PO HS PRN 08/22/16 Pravastatin Sodium [Pravachol -] 80 mg PO HS 08/22/16 Ranolazine [Ranexa] 1,000 mg PO BID 08/22/16 Tamsulosin HCl [Flomax] 0.4 mg PO ACDIN 08/22/16 Beclomethasone Dipropionate [Qvar] 2 puff IH BID 01/16/17 Amiodarone HCl [Cordarone -] 200 mg PO DAILY 03/27/17 Hyoscyamine Sulfate 0.125 mg PO ASDIR PRN 03/27/17 Omeprazole 20 mg PO DAILY 03/27/17 Sertraline HCl 50 mg PO DAILY 03/27/17 Albuterol 2.5/Ipratropium 0.5 [Duoneb -] 1 amp NEB RQID amp 06/28/17 Furosemide [Lasix -] 60 mg PO DAILY 07/14/17 Prasugrel HCl [Effient] 5 mg PO DAILY 07/14/17 Ranitidine HCl [Zantac] 150 mg PO DAILY 07/14/17 Sucralfate [Carafate] 1 gm PO DAILY 07/14/17 Tiotropium Br/Olodaterol HCl [Stiolto Respimat Inhal Delmar] 2.5 gm IH DAILY Warfarin Na [Coumadin -] 3 mg PO DAILY@1800 07/14/17 Anemia: No Asthma: No Cancer: No Cardiac Disorders: Yes (A FIB, CA) CVA: No COPD: Yes CHF: Yes Dementia: No Diabetes: No GI Disorders: Yes (ACID REFLUX) Disorders: No HTN: Yes Hypercholesterolemia: Yes Liver Disease: No Seizures: No Thyroid Disease: No - Surgical History Abdominal Surgery: No Appendectomy: No Cardiac Surgery: Yes (13 stent placements & CARDIAC ABLIATION 01/2014) Cholecystectomy: No Lung Surgery: No Neurologic Surgery: No Orthopedic Surgery: No - Immunization History Immunization Up to Date: Yes - Suicide/Smoking/Psychosocial Hx Smoking Status: No Smoking History: Former smoker Have you smoked in the past 12 months: No Number of Cigarettes Smoked Daily: 0 If you are a former smoker, when did you quit?: 19 YRS Information on smoking cessation initiated: No Hx Alcohol Use: Yes Drug/Substance Use Hx: No Substance Use Type: None Hx Substance Use Treatment: No Review of Systems - Review of Systems Comments:: 07/14/17 14:20 GENERAL/CONSTITUTIONAL: No fever. Positive for chills. No weakness. HEAD, EYES, EARS, NOSE AND THROAT: No change in vision. No sore throat. CARDIOVASCULAR: Positive for chest pain and shortness of breath RESPIRATORY: No cough, wheezing, or hemoptysis. GASTROINTESTINAL: No nausea, vomiting, diarrhea or constipation. GENITOURINARY: No dysuria, frequency, or change in urination. SKIN: No rash NEUROLOGIC: No headache, vertigo, loss of consciousness, or change in strength/ sensation. HEMATOLOGIC/LYMPHATIC: No anemia, easy bleeding, or history of blood clots. ALLERGIC/IMMUNOLOGIC: No hives or skin allergy. *Physical Exam - Vital Signs Last Vital Signs Temp Pulse Resp BP Pulse Ox 98.3 F 61 20 115/60 98 07/14/17 14:01 07/14/17 14:01 07/14/17 14:01 07/14/17 14:01 07/14/17 14:01 - Physical Exam Comments: 07/14/17 14:20 GENERAL: Awake, alert, and fully oriented, in moderate distress HEAD: No signs of trauma, normocephalic, atraumatic EYES: PERRLA, EOMI, sclera anicteric, conjunctiva clear ENT: Auricles normal inspection, hearing grossly normal, nares patent, oropharynx clear without exudates. Moist mucosa NECK: Normal ROM, supple, no lymphadenopathy, JVD, or masses LUNGS: Tachypneic, decreased breath sounds bilaterally, no wheezing HEART: Regular rate and rhythm, normal S1 and S2, no murmurs, rubs or gallops, peripheral pulses normal and equal bilaterally. ABDOMEN: Soft, nontender, normoactive bowel sounds. No guarding, no rebound. No masses EXTREMITIES: Normal inspection, Normal range of motion, no edema. No clubbing or cyanosis. NEUROLOGICAL: Cranial nerves II through XII grossly intact. Normal speech, no focal sensorimotor deficits SKIN: Warm, Dry, normal turgor, no rashes or lesions noted. ED Treatment Course - LABORATORY CBC & Chemistry Diagram: 07/14/17 13:10 07/14/17 13:10 - ADDITIONAL ORDERS Additional order review: Laboratory Results 07/14/17 07/14/17 13:10 13:10 PT with INR 15.50 H INR 1.37 H D Sodium 139 Potassium 3.5 Chloride 102 Carbon Dioxide 30 Anion Gap 7 L BUN 14 Creatinine 1.0 Creat Clearance w eGFR > 60 Random Glucose 98 Calcium 8.7 Magnesium 2.0 Total Bilirubin 0.5 AST 11 L D ALT 14 Alkaline Phosphatase 36 L Creatine Kinase 76 Troponin I 0.02 Total Protein 7.2 Albumin 3.7 07/14/17 13:10 RBC 3.97 L MCV 84.5 MCHC 33.7 RDW 14.0 MPV 7.5 Neutrophils % 78.3 D Lymphocytes % 12.0 D Monocytes % 6.6 Eosinophils % 2.6 Basophils % 0.5 - Medications Given in the ED: ED Medications Discontinued Medications Generic Name Dose Route Start Last Admin Trade Name Freq PRN Reason Stop Dose Admin Albuterol/Ipratropium 3 amp 07/14/17 13:19 07/14/17 13:26 Duoneb - NEB 07/14/17 13:20 3 amp ONCE ONE Administration Furosemide 40 mg 07/14/17 13:25 07/14/17 13:32 Lasix Injection - IVPUSH 07/14/17 13:26 40 mg ONCE ONE Administration Medical Decision Making - Critical Care Time Total Critical Care Time (minutes): 60 Critical Care Statement: The care of this patient involved high complexity decision making to prevent further life threatening deterioration of the patient 's condition and/or to evaluate & treat vital organ system(s) failure or risk of failure. - Medical Decision Making 07/14/17 14:24 Patient is 62M with history of COPD, CHF, afib and multiple other comorbidities here today with chest pain and shortness of breath. Vital signs show bp of 161/ 85 and tachypnea, patient sitting upright but not tripoding. Started on bipap. US showed multiple b-lines and CXR showed pulmonary edema. Nitro drip started then titrated down. Now off. Patient's respiratory rate moved from ~30 to 16- 20. BP stable to 110/70s. Cardiac workup initiated. Patient currently tolerating bipap. 07/14/17 14:46 Patient trialled off bipap successfully, urinated twice, breath sounds improved , no longer tachypneic. Patient states that he feels much improved. EKG shows sinus rhythm with 1st degree av block. RBBB morphology with LAFB pattern. No st elevations/depressions. QRS widened to 172. SD widened to 226. 07/14/17 14:52 Laboratory Tests 07/14/17 07/14/17 13:10 13:10 WBC 7.0 Hgb 11.3 L Hct 33.5 L Plt Count 204 D Potassium 3.5 Creatinine 1.0 Creat Clearance w eGFR > 60 Troponin I 0.02 CBC reassuing, CMP reassuring. Troponin detectable to 0.02. Will admit patient to tele. 07/14/17 14:53 Patient complaining of back pain, will give home dose of percocet. 07/14/17 15:07 Tolerating 4L NC without tachypnea. *DC/Admit/Observation/Transfer Diagnosis at time of Disposition: Acute exacerbation of CHF (congestive heart failure) - Discharge Dispostion Condition at time of disposition: Stable Decision to Admit order: Yes - Referrals Referrals: Bari Nolan MD [Primary Care Provider] - - Patient Instructions - Post Discharge Activity
--- NOTE | 2017-07-14 15:43 | PDOC ---
Attending Attestation - Resident Resident Name: Kris Kim - ED Attending Attestation I have performed the following: I have examined & evaluated the patient, The case was reviewed & discussed with the resident, I agree w/resident's findings & plan, Exceptions are as noted - HPI HPI: 07/14/17 15:34 The patient is a 62 year old male, with a significant past medical history of COPD, CHF, AFib, [place], hypertension, hyperlipidemia, and GERD, who presents to the emergency department with shortness of breath and associated chest pain for approximately 1 day, The patient reports acute worsening of his chronic shortness of breath. He reports associated left sided chest pain, non radiating in nature. He denies any diaphoresis, palpitations, or lower extremity edema. The patient was given SL nitro by EMS, which relieved his chest pain. He denies any vomiting, diarrhea, or constipation. He denies any fever, chills, cough, or dizziness. He denies any recent travel or sick contacts. - Physicial Exam PE: 07/14/17 15:43 "GENERAL: Awake, alert, and fully oriented, in no acute distress. HEAD: No signs of trauma EYES: PERRLA, EOMI, sclera anicteric, conjunctiva clear ENT: Auricles normal inspection, hearing grossly normal, nares patent, oropharynx clear without exudates. Moist mucosa NECK: Nontender, no stepoffs, Normal ROM, supple, no lymphadenopathy, JVD, or masses LUNGS: bibasilar rales, no wheezes HEART: Regular rate and rhythm, normal S1 and S2, no murmurs, rubs or gallops ABDOMEN: Soft, nontender, normoactive bowel sounds. No guarding, no rebound. No masses EXTREMITIES: Normal range of motion, no edema. No clubbing or cyanosis. No cords, erythema, or tenderness NEUROLOGICAL: Cranial nerves II through XII intact. 5/5 strength and sensation in all extremities, Normal speech, normal gait, normal cerebellar function SKIN: Warm, Dry, normal turgor, no rashes or lesions noted. " - Critical Care Time Total Critical Care Time: 60 Critical Care Statement: The care of this patient involved high complexity decision making to prevent further life threatening deterioration of the patient 's condition and/or to evaluate & treat vital organ system(s) failure or risk of failure. - Medical Decision Making 07/14/17 15:44 62 M with SOB and CP. Exam with rales and vitals notable for HTN. Concerning for possible CHF exacerbation. Possible COPD component as well, but pt with no significant wheezing on exam. Pt with no s/s DVT on exam, unlikely to be PE. - Labs, BNP, trop - CXR - BiPAP - Nitro gtt - Lasix IV - Trial of nebs - Admit CXR with congestion Pt started on nitro gtt and bipap, gradually weaned off with significantly improved respiratory status. Pt admitted at 4pm to Dr. Boland
[2017-07-14] MEDS: oxyCODONE HCL 5 MG TABLET PO PRN ×2 (18:21→21:33)
[2017-07-14] MEDS ORDERED: PATIENT'S OWN MEDICATION (NON-FORMULARY) (Oxycodone Hcl [Oxycodone Hcl] 30 MG) PO PRN (20:03)
[2017-07-14] MEDS ORDERED: oxyCODONE HCL 5 MG TABLET PO ONE (21:20)
[2017-07-14] MEDS: LISINOPRIL 10 MG TABLET (FP) PO SCH (22:25)
[2017-07-15] MEDS: oxyCODONE HCL 5 MG TABLET PO PRN ×4 (05:57→23:50)
--- NOTE | 2017-07-15 10:32 | CON.CARD ---
Consult Consult Specialty:: Cardiology - History of Present Illness Chief Complaint: sob cp History of Present Illness: The patient is a 62 year old male, with a significant past medical history of COPD, CHF, AFib, [place], hypertension, hyperlipidemia, and GERD, who presents to the emergency department with shortness of breath and associated chest pain for approximately 1 day, The patient reports acute worsening of his chronic shortness of breath. He reports associated left sided chest pain, non radiating in nature. He denies any diaphoresis, palpitations, or lower extremity edema. The patient was given SL nitro by EMS, which relieved his chest pain. He denies any vomiting, diarrhea, or constipation. He denies any fever, chills, cough, or dizziness. He denies any recent travel or sick contacts. PMH s/p multiple coronary stents s/p PTCA of distal OM1 (12/24/10) s/p pulmonary vein isolation procedures (ablation) x 2 for Atrial Fibrillation Cardiac Cath [facility] 01-17-09 Coronary Angiography [facility] 11-04-09 Cardiac Cath [facility] 12-31-09 Cardiac Cath [facility] 06-01-10 Cardiac Cath [facility] 06-22-10 Cardiac Cath [facility] 12-24-10 Cardiac Cath [facility] 03-17-12 Cardiac Cath [facility] 05-11-12 Cardiac Surgery 06-01-12 Cardiac Cath [facility] 03-28-15 Cardiac Cath [facility] 03-28-[address] [facility] 03-12-16 Ongoing medical problems Medical history: angina pectoris obstructive sleep apnea Anxiety Atrial fibrillation-->ablation Rx CAD: s/p multiple PCIs; the latest 12/08: patent mid LAD and RPDA prior stents; PTCA of distal OM1; latest angiograms 04/15 and 03/16: non-obstructive CAD Congestive heart failure (diastolic) COPD Hypercholesterolemia Hypertension Moderate aortic regurgitation Obesity s/p pulmonary vein ablation x 2 for PAF, most recently at [facility] (followed by Dr. Fam Pollock) - History Source History Provided By: Patient, Medical Record - Past Medical History Cardio/Vascular: Yes: AFIB, Aortic Insufficiency, Aortic Stenosis, CAD, CHF ( chronic diastolic), HTN, Hyperlipdemia, [place], Other (SVT) Pulmonary: Yes: COPD, Sleep Apnea Gastrointestinal: Yes: GERD Psych: Yes: Anxiety, Depression Musculoskeletal: Yes: Chronic low back pain - Past Surgical History Past Surgical History: Yes: Stent (Multiple cardiac stents; pulmonary vein ablation Rx x 2 for AF/flutter) - Alcohol/Substance Use Hx Alcohol Use: Yes History of Substance Use: reports: None - Smoking History Smoking history: Former smoker Have you smoked in the past 12 months: No Aproximately how many cigarettes per day: 0 If you are a former smoker, when did you quit?: 19 YRS - Social History Usual Living Arrangement: With Spouse ADL: Independent History of Recent Travel: No Home Medications - Allergies Allergies/Adverse Reactions: Allergies Allergy/AdvReac Type Severity Reaction Status Date / Time levofloxacin [From Levaquin] Allergy Intermediate Swelling Verified 06/24/17 05: 12 - Home Medications Home Medications: Ambulatory Orders Albuterol Sulfate [Proair Respiclick] 90 mcg IH PRN 08/22/16 Aspirin [ASA -] 81 mg PO ACDIN 08/22/16 Diltiazem HCl [Diltiazem 24Hr ER] 120 mg PO DAILY 08/22/16 Fenofibric Acid [Fibricor] 105 mg PO DAILY 08/22/16 Isosorbide Mononitrate [Isosorbide Mononitrate ER] 120 mg PO DAILY 08/22/16 Linaclotide [Linzess] 290 mcg PO BID 08/22/16 Lisinopril 10 mg PO HS 08/22/16 Metoclopramide HCl [Reglan] 10 mg PO PRN 08/22/16 Metoprolol Succinate [Toprol Xl] 100 mg PO DAILY 08/22/16 Nitroglycerin [place] [Nitrolingual [place] -] 1 spray TL PRN PRN 08/22/16 Oxycodone HCl 30 mg PO HS PRN 08/22/16 Pravastatin Sodium [Pravachol -] 80 mg PO HS 08/22/16 Ranolazine [Ranexa] 1,000 mg PO BID 08/22/16 Tamsulosin HCl [Flomax] 0.4 mg PO ACDIN 08/22/16 Beclomethasone Dipropionate [Qvar] 2 puff IH BID 01/16/17 Amiodarone HCl [Cordarone -] 200 mg PO DAILY 03/27/17 Hyoscyamine Sulfate 0.125 mg PO ASDIR PRN 03/27/17 Omeprazole 20 mg PO DAILY 03/27/17 Sertraline HCl 50 mg PO DAILY 03/27/17 Albuterol 2.5/Ipratropium 0.5 [Duoneb -] 1 amp NEB RQID amp 06/28/17 Furosemide [Lasix -] 60 mg PO DAILY 07/14/17 Prasugrel HCl [Effient] 5 mg PO DAILY 07/14/17 Ranitidine HCl [Zantac] 150 mg PO DAILY 07/14/17 Sucralfate [Carafate] 1 gm PO DAILY 07/14/17 Tiotropium Br/Olodaterol HCl [Stiolto Respimat Inhal [place]] 2.5 gm IH DAILY Warfarin Na [Coumadin -] 3 mg PO DAILY@1800 07/14/17 Family Disease History - Family Disease History Family Disease History: Heart Disease: Brother Review of Systems - Review of Systems Constitutional: reports: No Symptoms Eyes: reports: No Symptoms HENT: reports: No Symptoms Neck: reports: No Symptoms Cardiovascular: reports: Chest Pain Respiratory: reports: SOB, SOB on Exertion Gastrointestinal: reports: No Symptoms Genitourinary: reports: No Symptoms Breasts: reports: No Symptoms Reported Musculoskeletal: reports: No Symptoms Integumentary: reports: No Symptoms Neurological: reports: No Symptoms Endocrine: reports: No Symptoms Hematology/Lymphatic: reports: No Symptoms Psychiatric: reports: No Symptoms Vital Signs: Vital Signs Temperature 98.6 F 07/15/17 02:07 Pulse Rate 57 L 07/15/17 02:07 Respiratory Rate 18 07/15/17 02:07 Blood Pressure 120/61 07/15/17 02:07 O2 Sat by Pulse Oximetry (%) 94 L 07/14/17 22:00 Constitutional: Yes: Well Nourished, No Distress, Calm Eyes: Yes: WNL, Conjunctiva Clear, EOM Intact HENT: Yes: WNL, Atraumatic, Normocephalic Neck: Yes: WNL, Supple, Trachea Midline Respiratory: Yes: WNL, Regular, CTA Bilaterally Gastrointestinal: Yes: WNL, Normal Bowel Sounds Renal/: Yes: WNL Cardiovascular: Yes: WNL, Regular Rate and Rhythm Heart Sounds: Yes: S1, S2 Murmur: Yes: Systolic Murmur Musculoskeletal: Yes: WNL Extremities: Yes: WNL Integumentary: Yes: WNL Neurological: Yes: WNL, Alert, Oriented ...Motor Strength: WNL Psychiatric: Yes: WNL, Alert, Oriented - Other Data Labs, Other Data: CBC, BMP 07/14/17 13:10 07/14/17 13:10 INR, PTT INR 1.37 (0.82-1.09) H D 07/14/17 13:10 Troponin, BNP 07/14/17 07/14/17 13:10 21:00 Troponin I 0.02 B-Natriuretic Peptide 1688.96 H Troponin, BNP 07/14/17 07/14/17 13:10 21:00 Troponin I 0.02 B-Natriuretic Peptide 1688.96 H Imaging - Results Chest X-ray: Image Reviewed (chf) EKG: Image Reviewed (sr trifascicular block) Problem List - Problems (1) Acute exacerbation of CHF (congestive heart failure) Code(s): I50.9 - HEART FAILURE, UNSPECIFIED (2) TRACY (acute kidney injury) Code(s): N17.9 - ACUTE KIDNEY FAILURE, UNSPECIFIED (3) Acute coronary syndrome Code(s): I24.9 - ACUTE ISCHEMIC HEART DISEASE, UNSPECIFIED (4) Acute on chronic diastolic (congestive) heart failure Code(s): I50.33 - ACUTE ON CHRONIC DIASTOLIC (CONGESTIVE) HEART FAILURE (5) Aortic stenosis Code(s): I35.0 - NONRHEUMATIC AORTIC (VALVE) STENOSIS (6) Atypical chest pain Code(s): R07.89 - OTHER CHEST PAIN (7) Bifascicular bundle branch block Code(s): I45.2 - BIFASCICULAR BLOCK (8) CAP (community acquired pneumonia) Code(s): J18.9 - PNEUMONIA, UNSPECIFIED ORGANISM Qualifiers: (9) CHF (congestive heart failure) Code(s): I50.9 - HEART FAILURE, UNSPECIFIED (10) COPD exacerbation Code(s): J44.1 - CHRONIC OBSTRUCTIVE PULMONARY DISEASE W (ACUTE) EXACERBATION (11) Chest heaviness Code(s): R07.89 - OTHER CHEST PAIN (12) Chest pain Code(s): R07.9 - CHEST PAIN, UNSPECIFIED (13) Contusion of rib on right side Code(s): S20.211A - CONTUSION OF RIGHT FRONT WALL OF THORAX, INITIAL ENCOUNTER (14) Demand ischemia Code(s): I24.8 - OTHER FORMS OF ACUTE ISCHEMIC HEART DISEASE (15) Dyspnea Code(s): R06.00 - DYSPNEA, UNSPECIFIED (16) Elevated troponin Code(s): R79.89 - OTHER SPECIFIED ABNORMAL FINDINGS OF BLOOD CHEMISTRY (17) Epigastric abdominal pain Code(s): R10.13 - EPIGASTRIC PAIN (18) Epistaxis Code(s): R04.0 - EPISTAXIS (19) Hypertriglyceridemia Code(s): E78.1 - PURE HYPERGLYCERIDEMIA (20) Hypokalemia Code(s): E87.6 - HYPOKALEMIA (21) Hypotension Code(s): I95.9 - HYPOTENSION, UNSPECIFIED (22) Hypothyroid Code(s): E03.9 - HYPOTHYROIDISM, UNSPECIFIED (23) LPRD (laryngopharyngeal reflux disease) Code(s): K21.9 - GASTRO-ESOPHAGEAL REFLUX DISEASE WITHOUT ESOPHAGITIS (24) Leg pain Code(s): M79.606 - PAIN IN LEG, UNSPECIFIED (25) Moderate aortic stenosis Code(s): I35.0 - NONRHEUMATIC AORTIC (VALVE) STENOSIS (26) Myocardial disease Code(s): I51.5 - MYOCARDIAL DEGENERATION (27) Nausea Code(s): R11.0 - NAUSEA (28) Obesity Code(s): E66.9 - OBESITY, UNSPECIFIED (29) Obstructive sleep apnea Code(s): G47.33 - OBSTRUCTIVE SLEEP APNEA (ADULT) (PEDIATRIC) (30) PAF (paroxysmal atrial fibrillation) Code(s): I48.0 - PAROXYSMAL ATRIAL FIBRILLATION (31) Paroxysmal a-fib Code(s): I48.0 - PAROXYSMAL ATRIAL FIBRILLATION (32) Pleural effusion Code(s): J90 - PLEURAL EFFUSION, NOT ELSEWHERE CLASSIFIED (33) Pneumonia Code(s): J18.9 - PNEUMONIA, UNSPECIFIED ORGANISM (34) Presence of stent in coronary artery in patient with coronary artery disease Code(s): I25.10 - ATHSCL HEART DISEASE OF [place] CORONARY ARTERY W/O ANG PCTRS; Z95.5 - PRESENCE OF CORONARY ANGIOPLASTY IMPLANT AND GRAFT (35) Rib fractures Code(s): S22.39XA - FRACTURE OF ONE RIB, UNSP SIDE, INIT FOR CLOS FX (36) SOB (shortness of breath) Code(s): R06.02 - SHORTNESS OF BREATH (37) Sepsis Code(s): A41.9 - SEPSIS, UNSPECIFIED ORGANISM (38) Atrial fibrillation Code(s): I48.91 - UNSPECIFIED ATRIAL FIBRILLATION (39) CAD (coronary artery disease) Code(s): I25.10 - ATHSCL HEART DISEASE OF [place] CORONARY ARTERY W/O ANG PCTRS Qualifiers: (40) COPD (chronic obstructive pulmonary disease) Code(s): J44.9 - CHRONIC OBSTRUCTIVE PULMONARY DISEASE, UNSPECIFIED Qualifiers: (41) Chronic abdominal pain Code(s): R10.9 - UNSPECIFIED ABDOMINAL PAIN; G89.29 - OTHER CHRONIC PAIN (42) Chronic back pain Code(s): M54.9 - DORSALGIA, UNSPECIFIED; G89.29 - OTHER CHRONIC PAIN (43) Chronic diastolic heart failure Code(s): I50.32 - CHRONIC DIASTOLIC (CONGESTIVE) HEART FAILURE (44) Constipation Code(s): K59.00 - CONSTIPATION, UNSPECIFIED (45) History of coronary artery stent placement Code(s): Z95.5 - PRESENCE OF CORONARY ANGIOPLASTY IMPLANT AND GRAFT (46) Hyperlipidemia Code(s): E78.5 - HYPERLIPIDEMIA, UNSPECIFIED (47) Hypertension Code(s): I10 - ESSENTIAL (PRIMARY) HYPERTENSION Assessment/Plan decomprnsated CHF angina pectoris obstructive sleep apnea Anxiety Atrial fibrillation-->ablation Rx CAD: s/p multiple PCIs; the latest 12/08: patent mid LAD and RPDA prior stents; PTCA of distal OM1; latest angiograms 04/15 and 03/16: non-obstructive CAD Congestive heart failure (diastolic) COPD Hypercholesterolemia Hypertension Moderate aortic regurgitation Obesity s/p pulmonary vein ablation x 2 for PAF, most recently at [facility] (followed by Dr. Fam Pollock) Plan telemetry r/o mi iv lasix
--- NOTE | 2017-07-15 10:39 | HP ---
Admitting History and Physical - Admission History of Present Illness: Patient is a 62M with history of afib, aortic stenosis, CF, HTN, HLD, [place], SVT, COPD and GERD here today complaining of chest pain. Patient states that he started feelng short of breath with a stabbing pain in the left side of his chest that was relieved with home nitroglycerin. Systolic BP was initially 200. Endorses associated chills and nausea. Denies fevers and chills. Denies leg swelling and history of blood clots. Patient reports compliance with his medications. Past History - Past Medical History Allergies/Adverse Reactions: Allergies Allergy/AdvReac Type Severity Reaction Status Date / Time levofloxacin [From Levaquin] Allergy Intermediate Swelling Verified 06/24/17 05: 12 in ER CXr pulmonary vascular congestion-CHF elevated BNP iv lasix and nitro drip -tele floor History Source: Patient, Medical Record - Past Medical History Cardiovascular: Yes: AFIB, Aortic Insufficiency, Aortic Stenosis, CAD, CHF ( chronic diastolic), HTN, Hyperlipdemia, [place], Other (SVT) Pulmonary: Yes: COPD, Sleep Apnea Gastrointestinal: Yes: GERD Psych: Yes: Anxiety, Depression Musculoskeletal: Yes: Chronic low back pain - Past Surgical History Past Surgical History: Yes: Stent (Multiple cardiac stents; pulmonary vein ablation Rx x 2 for AF/flutter) - Smoking History Smoking history: Former smoker Have you smoked in the past 12 months: No Aproximately how many cigarettes per day: 0 If you are a former smoker, when did you quit?: 19 YRS - Alcohol/Substance Use Hx Alcohol Use: Yes History of Substance Use: reports: None - Social History ADL: Independent History of Recent Travel: No Home Medications - Allergies Allergies/Adverse Reactions: Allergies Allergy/AdvReac Type Severity Reaction Status Date / Time levofloxacin [From Levaquin] Allergy Intermediate Swelling Verified 06/24/17 05: 12 - Home Medications Home Medications: Ambulatory Orders Albuterol Sulfate [Proair Respiclick] 90 mcg IH PRN 08/22/16 Aspirin [ASA -] 81 mg PO ACDIN 08/22/16 Diltiazem HCl [Diltiazem 24Hr ER] 120 mg PO DAILY 08/22/16 Fenofibric Acid [Fibricor] 105 mg PO DAILY 08/22/16 Isosorbide Mononitrate [Isosorbide Mononitrate ER] 120 mg PO DAILY 08/22/16 Linaclotide [Linzess] 290 mcg PO BID 08/22/16 Lisinopril 10 mg PO HS 08/22/16 Metoclopramide HCl [Reglan] 10 mg PO PRN 08/22/16 Metoprolol Succinate [Toprol Xl] 100 mg PO DAILY 08/22/16 Nitroglycerin [place] [Nitrolingual [place] -] 1 spray TL PRN PRN 08/22/16 Oxycodone HCl 30 mg PO HS PRN 08/22/16 Pravastatin Sodium [Pravachol -] 80 mg PO HS 08/22/16 Ranolazine [Ranexa] 1,000 mg PO BID 08/22/16 Tamsulosin HCl [Flomax] 0.4 mg PO ACDIN 08/22/16 Beclomethasone Dipropionate [Qvar] 2 puff IH BID 01/16/17 Amiodarone HCl [Cordarone -] 200 mg PO DAILY 03/27/17 Hyoscyamine Sulfate 0.125 mg PO ASDIR PRN 03/27/17 Omeprazole 20 mg PO DAILY 03/27/17 Sertraline HCl 50 mg PO DAILY 03/27/17 Albuterol 2.5/Ipratropium 0.5 [Duoneb -] 1 amp NEB RQID amp 06/28/17 Furosemide [Lasix -] 60 mg PO DAILY 07/14/17 Prasugrel HCl [Effient] 5 mg PO DAILY 07/14/17 Ranitidine HCl [Zantac] 150 mg PO DAILY 07/14/17 Sucralfate [Carafate] 1 gm PO DAILY 07/14/17 Tiotropium Br/Olodaterol HCl [Stiolto Respimat Inhal [place]] 2.5 gm IH DAILY Warfarin Na [Coumadin -] 3 mg PO DAILY@1800 07/14/17 Family Disease History - Family Disease History Family Disease History: Heart Disease: Brother Review of Systems - Review of Systems Cardiovascular: reports: Chest Pain (has improved) Physical Examination Vital Signs: Vital Signs Temperature 98.6 F 07/15/17 02:07 Pulse Rate 57 L 07/15/17 02:07 Respiratory Rate 18 07/15/17 02:07 Blood Pressure 120/61 07/15/17 02:07 O2 Sat by Pulse Oximetry (%) 94 L 07/14/17 22:00 Constitutional: Yes: Calm Cardiovascular: Yes: Pulse Irregular, S1, S2 Respiratory: Yes: Diminished Gastrointestinal: Yes: Normal Bowel Sounds, Soft Edema: No Neurological: Yes: Alert, Oriented Labs: CBC, BMP 07/14/17 13:10 07/14/17 13:10 Imaging - Results Chest X-ray: Report Reviewed (CHF) Problem List - Problems (1) Acute exacerbation of CHF (congestive heart failure) Assessment/Plan: telemetry iv lasix imdur stop drip toprol trend CE elevated bnp, trend acei Code(s): I50.9 - HEART FAILURE, UNSPECIFIED (2) Atypical chest pain Assessment/Plan: r/o [place] CE cardiology on board statin BB ranexa trilipix Code(s): R07.89 - OTHER CHEST PAIN (3) Paroxysmal a-fib Assessment/Plan: coumadin check INR rate control cardizem and BB Code(s): I48.0 - PAROXYSMAL ATRIAL FIBRILLATION (4) Hypokalemia Assessment/Plan: start k dur Code(s): E87.6 - HYPOKALEMIA (5) CAD (coronary artery disease) Assessment/Plan: s/p multiple stents Code(s): I25.10 - ATHSCL HEART DISEASE OF [place] CORONARY ARTERY W/O ANG PCTRS (6) COPD (chronic obstructive pulmonary disease) Assessment/Plan: BB,trilipix prasugrel ranexa Code(s): J44.9 - CHRONIC OBSTRUCTIVE PULMONARY DISEASE, UNSPECIFIED
[2017-07-15] MEDS ORDERED: FUROSEMIDE 40 MG/4 ML INJECTABLE VIAL IVPUSH SCH (10:45)
[2017-07-15] MEDS: RANITIDINE HCL 150 MG TABLET (FP) PO SCH (11:33)
[2017-07-15] MEDS: NITROGLYCERIN 25MG/D5W 250ML 25 MG/250 ML ML IVPB SCH (14:14)
--- NOTE | 2017-07-15 14:42 | CON.CARD ---
Consult Consult Specialty:: cardiology Reason for Consultation:: chest pain; dyspnea; hx CAD-->coronary stents; PAF - History of Present Illness History of Present Illness: The patient is a 62 year old male, smonse Garland), with a significant past medical history of [place], CAD with multiple coronary stents (the latest in ?2016), COPD, diastolic CHF, PAF (s/p ablation therapy x 2; followed by Dr. Brandyn Pollock, [facility]), hypertension, hyperlipidemia, morbid truncal obesity, and GERD, who presents to the emergency department with shortness of breath and associated chest pain for approximately 1 day, The patient reports acute worsening of his chronic shortness of breath. He reports associated left sided chest pain, non radiating in nature. He denies any diaphoresis, palpitations, or lower extremity edema. The patient was given SL nitro by EMS, which relieved his chest pain. He denies any vomiting, diarrhea, or constipation. He denies any fever, chills, cough, or dizziness. He denies any recent travel or sick contacts. - History Source History Provided By: Patient, Medical Record Limitations to Obtaining History: Poor Historian - Past Medical History Cardio/Vascular: Yes: AFIB, Aortic Insufficiency, Aortic Stenosis, CAD, CHF ( chronic diastolic), HTN, Hyperlipdemia, [place], Other (SVT) Pulmonary: Yes: COPD, Sleep Apnea Gastrointestinal: Yes: GERD Psych: Yes: Anxiety, Depression Musculoskeletal: Yes: Chronic low back pain - Past Surgical History Past Surgical History: Yes: Stent (Multiple cardiac stents; pulmonary vein ablation Rx x 2 for AF/flutter) - Alcohol/Substance Use Hx Alcohol Use: Yes History of Substance Use: reports: None - Smoking History Smoking history: Former smoker Have you smoked in the past 12 months: No Aproximately how many cigarettes per day: 0 If you are a former smoker, when did you quit?: 19 YRS - Social History Usual Living Arrangement: With Spouse ADL: Independent History of Recent Travel: No Home Medications - Allergies Allergies/Adverse Reactions: Allergies Allergy/AdvReac Type Severity Reaction Status Date / Time levofloxacin [From Levaquin] Allergy Intermediate Swelling Verified 06/24/17 05: 12 - Home Medications Home Medications: Ambulatory Orders Albuterol Sulfate [Proair Respiclick] 90 mcg IH PRN 08/22/16 Aspirin [ASA -] 81 mg PO ACDIN 08/22/16 Diltiazem HCl [Diltiazem 24Hr ER] 120 mg PO DAILY 08/22/16 Fenofibric Acid [Fibricor] 105 mg PO DAILY 08/22/16 Isosorbide Mononitrate [Isosorbide Mononitrate ER] 120 mg PO DAILY 08/22/16 Linaclotide [Linzess] 290 mcg PO BID 08/22/16 Lisinopril 10 mg PO HS 08/22/16 Metoclopramide HCl [Reglan] 10 mg PO PRN 08/22/16 Metoprolol Succinate [Toprol Xl] 100 mg PO DAILY 08/22/16 Nitroglycerin [place] [Nitrolingual [place] -] 1 spray TL PRN PRN 08/22/16 Oxycodone HCl 30 mg PO HS PRN 08/22/16 Pravastatin Sodium [Pravachol -] 80 mg PO HS 08/22/16 Ranolazine [Ranexa] 1,000 mg PO BID 08/22/16 Tamsulosin HCl [Flomax] 0.4 mg PO ACDIN 08/22/16 Beclomethasone Dipropionate [Qvar] 2 puff IH BID 01/16/17 Amiodarone HCl [Cordarone -] 200 mg PO DAILY 03/27/17 Hyoscyamine Sulfate 0.125 mg PO ASDIR PRN 03/27/17 Omeprazole 20 mg PO DAILY 03/27/17 Sertraline HCl 50 mg PO DAILY 03/27/17 Albuterol 2.5/Ipratropium 0.5 [Duoneb -] 1 amp NEB RQID amp 06/28/17 Furosemide [Lasix -] 60 mg PO DAILY 07/14/17 Prasugrel HCl [Effient] 5 mg PO DAILY 07/14/17 Ranitidine HCl [Zantac] 150 mg PO DAILY 07/14/17 Sucralfate [Carafate] 1 gm PO DAILY 07/14/17 Tiotropium Br/Olodaterol HCl [Stiolto Respimat Inhal [place]] 2.5 gm IH DAILY Warfarin Na [Coumadin -] 3 mg PO DAILY@1800 07/14/17 Family Disease History - Family Disease History Family Disease History: Heart Disease: Brother Review of Systems - Review of Systems Constitutional: reports: No Symptoms Eyes: reports: No Symptoms HENT: reports: No Symptoms Neck: reports: No Symptoms Cardiovascular: reports: Chest Pain, Shortness of Breath Respiratory: reports: SOB Gastrointestinal: reports: Bloating Genitourinary: reports: No Symptoms Breasts: reports: No Symptoms Reported Musculoskeletal: reports: Muscle Pain Integumentary: reports: No Symptoms Neurological: reports: No Symptoms Endocrine: reports: No Symptoms Hematology/Lymphatic: reports: No Symptoms Psychiatric: reports: Anxiety - Risk Factors Known Risk Factors: Yes: Age, Family History, Gender, Hypercholesterolemia, Hypertension, Physical Inactivity, Prior [place] /Emb Stroke, Smoking (former), Other (diastolic CHF) Vital Signs: Vital Signs Temperature 98.6 F 07/15/17 02:07 Pulse Rate 57 L 07/15/17 02:07 Respiratory Rate 18 07/15/17 09:00 Blood Pressure 120/61 07/15/17 02:07 O2 Sat by Pulse Oximetry (%) 94 L 07/15/17 09:00 Constitutional: Yes: Anxious Eyes: Yes: WNL HENT: Yes: WNL Neck: Yes: WNL Respiratory: Yes: Regular Gastrointestinal: Yes: Soft, Abdomen, Obese Renal/: No: Anuria Cardiovascular: Yes: WNL JVD: No Carotid Bruit: No PMI: Displaced Heart Sounds: Yes: S1, S2, S4 Musculoskeletal: Yes: Back Pain Extremities: Yes: WNL Edema: No Peripheral Pulses WNL: Yes Integumentary: Yes: WNL Neurological: Yes: WNL Psychiatric: Yes: WNL - Other Data Labs, Other Data: CBC, BMP 07/14/17 13:10 07/14/17 13:10 INR, PTT INR 1.37 (0.82-1.09) H D 07/14/17 13:10 Troponin, BNP 07/14/17 21:00 B-Natriuretic Peptide 1688.96 H Troponin, BNP 07/14/17 21:00 B-Natriuretic Peptide 1688.96 H Abnormal Lab Results 07/14/17 21:00 B-Natriuretic Peptide 1688.96 H Imaging - Results Chest X-ray: Image Reviewed (moderate CHF) EKG: Image Reviewed (NSR; LAFB; RBBB) Problem List - Problems (1) CAD (coronary artery disease) Assessment/Plan: Serial CK. EKG: NSR; bifascicular block; no acute STT changes. BNP > 1,600 Treat for acute diastolic CHF. Hx coronary angiogram 2016: nonobstructive disease. For stress MIBI (if unable to exercise, will do Lexiscan: pt has COPD, but no asthma) when stable. Code(s): I25.10 - ATHSCL HEART DISEASE OF [place] CORONARY ARTERY W/O ANG PCTRS (2) COPD (chronic obstructive pulmonary disease) Code(s): J44.9 - CHRONIC OBSTRUCTIVE PULMONARY DISEASE, UNSPECIFIED (3) Acute coronary syndrome Code(s): I24.9 - ACUTE ISCHEMIC HEART DISEASE, UNSPECIFIED (4) Acute on chronic diastolic (congestive) heart failure Code(s): I50.33 - ACUTE ON CHRONIC DIASTOLIC (CONGESTIVE) HEART FAILURE (5) Aortic stenosis Assessment/Plan: naila garzau 2017 ECHO. F/u LVEF, valve status. Code(s): I35.0 - NONRHEUMATIC AORTIC (VALVE) STENOSIS (6) Bifascicular bundle branch block Code(s): I45.2 - BIFASCICULAR BLOCK (7) Chest pain Code(s): R07.9 - CHEST PAIN, UNSPECIFIED (8) Obstructive sleep apnea Assessment/Plan: therapy per agricultural economics professor/sleep specialist. The importance of weight loss as potential aid in ameliorating this condition was emphasized. Code(s): G47.33 - OBSTRUCTIVE SLEEP APNEA (ADULT) (PEDIATRIC) (9) Chronic back pain Code(s): M54.9 - DORSALGIA, UNSPECIFIED; G89.29 - OTHER CHRONIC PAIN (10) History of coronary artery stent placement Assessment/Plan: Last coronary angiogram, 2016, did not require PCI. Spoke with pt's interventionalist, Dr. Coyle. Will have pt undergo stress MIBI. Code(s): Z95.5 - PRESENCE OF CORONARY ANGIOPLASTY IMPLANT AND GRAFT (11) Hyperlipidemia Assessment/Plan: f/u lipid profile Code(s): E78.5 - HYPERLIPIDEMIA, UNSPECIFIED (12) Hypertension Code(s): I10 - ESSENTIAL (PRIMARY) HYPERTENSION (13) S/P ablation of atrial fibrillation Assessment/Plan: DIscussed pt with his director medical writing, Dr. Brandyn Pollock, particularly regarding the need for continuation of amiodarone, given its many potential adverse side effects. Ft has extensve electrical disease in the [place], which ptus him at higher risk for future recurrences of AF. (In addition, when he had an AF recurrence, he developed a NSTEMI). He suggested continuing amiodarone, but decreasing the dose from 200 mg to 100 mg daily. Interactiopns with other medications, eg diltiazem and warfarin, need to be taken into consideration, as well as interval checks using tools such as chest CT to r/o pulmonary complications., TFTs, etc. Code(s): Z98.890 - OTHER SPECIFIED POSTPROCEDURAL STATES; Z86.79 - PERSONAL HISTORY OF OTHER DISEASES OF THE CIRCULATORY SYSTEM (14) On amiodarone therapy Assessment/Plan: see under "ablation of atrial fibrillation" Code(s): Z79.899 - OTHER [facility] (CURRENT) DRUG THERAPY
[2017-07-15] MEDS: ALBUTEROL SO4 2.5/IPRATROPIUM 0.5 INH SOL 3 ML VIAL.NEB. NEB SCH ×2 (15:33→20:55)
[2017-07-15] MEDS: POTASSIUM CHLORIDE TABS 20 MEQ TABLET.ER (FP) PO SCH (15:53)
[2017-07-15] MEDS: PRASUGREL HCL 5 MG TAB PO SCH (15:53)
[2017-07-15] MEDS: WARFARIN NA 5 MG TABLET (UD) PO SCH (17:40)
[2017-07-15] MEDS: SUCRALFATE 1 GM TABLET (FP) PO SCH ×2 (17:41→21:54)
[2017-07-15] MEDS: RANOLAZINE E.R. 1,000 MG TABLET (FP) PO SCH (21:54)
[2017-07-15] MEDS: ATORVASTATIN CA 20 MG TABLET (FP) PO SCH (21:54)
[2017-07-15] MEDS: LISINOPRIL 10 MG TABLET (FP) PO SCH (21:54)
[2017-07-16] MEDS: FUROSEMIDE 40 MG TABLET (FP) PO SCH ×2 (05:49→14:59)
[2017-07-16] MEDS: oxyCODONE HCL 5 MG TABLET PO PRN ×4 (05:49→22:48)
[2017-07-16 07:17] LABS: INR 1.27 (0.82-1.09); PROTHROMBIN TIME (PATIENT) 14.3 SEC (9.7-13.0)
[2017-07-16 07:48] LABS: CHLORIDE 100 mmol/L (98-107); POTASSIUM 3.2 mmol/L (3.5-5.1); SODIUM 138 mmol/L (136-145)
[2017-07-16 08:04] LABS: ALBUMIN 3.6 g/dl (3.4-5.0); ALK PHOS 36 U/L (45-117); ANION GAP 8 (8-16); BILIRUBIN,TOTAL 0.8 mg/dL (0.2-1.0); BLOOD UREA NITROGEN 15 mg/dL (7-18); CO2 30 mmol/L (21-32); GLUCOSE,RANDOM 96 mg/dL (74-106); MAGNESIUM 2.2 mg/dL (1.8-2.4); SGOT/AST 15 U/L (15-37); SGPT/ALT 15 U/L (12-78)
[2017-07-16] MEDS: ALBUTEROL SO4 2.5/IPRATROPIUM 0.5 INH SOL 3 ML VIAL.NEB. NEB SCH ×4 (08:38→19:40)
[2017-07-16] MEDS: FENOFIBRIC ACID 135 MG CAP PO SCH (09:06)
[2017-07-16] MEDS: RANITIDINE HCL 150 MG TABLET (FP) PO SCH (09:06)
[2017-07-16] MEDS: RANOLAZINE E.R. 1,000 MG TABLET (FP) PO SCH ×2 (09:06→21:33)
[2017-07-16] MEDS: SUCRALFATE 1 GM TABLET (FP) PO SCH ×4 (09:06→21:33)
[2017-07-16] MEDS: SERTRALINE HCL 50 MG TABLET (FP) PO SCH (09:06)
[2017-07-16] MEDS: POTASSIUM CHLORIDE TABS 20 MEQ TABLET.ER (FP) PO SCH ×2 (09:07→21:33)
[2017-07-16] MEDS: PRASUGREL HCL 5 MG TAB PO SCH (09:08)
[2017-07-16] MEDS ORDERED: AMIODARONE HCL 200 MG TABLET (FP) PO SCH (10:00)
--- NOTE | 2017-07-16 10:29 | PN ---
Progress Note, Physician History of Present Illness: Feels better - Current Medication List Current Medications: Active Medications Albuterol/Ipratropium (Duoneb -) 1 amp NEB RQID [facility] Last Admin: 07/16/17 08:38 Dose: 1 amp Amiodarone HCl (Cordarone -) 200 mg PO DAILY [facility] Atorvastatin Calcium (Lipitor -) 20 mg PO HS [facility] Last Admin: 07/15/17 21:54 Dose: 20 mg Diltiazem HCl (Cardizem Cd -) 120 mg PO DAILY [facility] Fenofibric Acid (Trilipix -) 135 mg PO DAILY [facility] Last Admin: 07/16/17 09:06 Dose: 135 mg Furosemide (Lasix -) 40 mg PO BID@0600,1400 [facility] Last Admin: 07/16/17 05:49 Dose: 40 mg Isosorbide Mononitrate (Imdur -) 120 mg PO DAILY [facility] Lisinopril (Prinivil) 10 mg PO HS [facility] Last Admin: 07/15/17 21:54 Dose: 10 mg Metoprolol Succinate (Toprol Xl -) 100 mg PO DAILY [facility] Last Admin: 07/15/17 14:45 Dose: 100 mg Oxycodone HCl (Roxicodone -) 10 mg PO Q6H PRN PRN Reason: PAIN LEVEL 7 - 10 Last Admin: 07/16/17 05:49 Dose: 10 mg Potassium Chloride (K-Dur -) 20 meq PO DAILY [facility] Last Admin: 07/16/17 09:07 Dose: 20 meq Prasugrel (Effient -) 5 mg PO DAILY [facility] Last Admin: 07/16/17 09:08 Dose: 5 mg Ranitidine HCl (Zantac -) 150 mg PO DAILY [facility] Last Admin: 07/16/17 09:06 Dose: 150 mg Ranolazine (Ranexa -) 1,000 mg PO BID [facility] Last Admin: 07/16/17 09:06 Dose: 1,000 mg Sertraline HCl (Zoloft -) 50 mg PO DAILY [facility] Last Admin: 07/16/17 09:06 Dose: 50 mg Sucralfate (Carafate -) 1 gm PO QID [facility] Last Admin: 07/16/17 09:06 Dose: 1 gm Warfarin Sodium (Coumadin -) 5 mg PO DAILY@1800 [facility] Last Admin: 07/15/17 17:40 Dose: 5 mg - Objective Vital Signs: Vital Signs Temperature 98.1 F 07/16/17 06:00 Pulse Rate 59 L 07/16/17 06:00 Respiratory Rate 17 07/16/17 06:00 Blood Pressure 110/65 07/16/17 06:00 O2 Sat by Pulse Oximetry (%) 97 07/15/17 21:00 Cardiovascular: Yes: S1, S2 Respiratory: Yes: Regular, CTA Bilaterally Gastrointestinal: Yes: Normal Bowel Sounds, Soft. No: Tenderness Edema: No Labs: CBC, BMP 07/14/17 13:10 07/16/17 06:00 INR, PTT INR 1.27 (0.82-1.09) H 07/16/17 06:00 Assessment/Plan - Problems (1) Acute exacerbation of CHF (congestive heart failure) Assessment/Plan: telemetry iv lasix-to po echo imdur toprol trend CE elevated bnp, trend acei Code(s): I50.9 - HEART FAILURE, UNSPECIFIED (2) Atypical chest pain Assessment/Plan: r/o [place] CE cardiology on board statin BB ranexa trilipix Code(s): R07.89 - OTHER CHEST PAIN (3) Paroxysmal a-fib Assessment/Plan: coumadin check INR lovenox rate control cardizem and BB Code(s): I48.0 - PAROXYSMAL ATRIAL FIBRILLATION (4) Hypokalemia Assessment/Plan: start k dur Code(s): E87.6 - HYPOKALEMIA (5) CAD (coronary artery disease) Assessment/Plan: s/p multiple stents stress test Code(s): I25.10 - ATHSCL HEART DISEASE OF [place] CORONARY ARTERY W/O ANG PCTRS (6) COPD (chronic obstructive pulmonary disease) Assessment/Plan: BB,trilipix prasugrel ranexa Code(s): J44.9 - CHRONIC OBSTRUCTIVE PULMONARY DISEASE, UNSPECIFIED
[2017-07-16] MEDS ORDERED: KCL 10 MEQ IVPB 10 MEQ/100 ML INFUS.BAG IVPB SCH (10:45)
[2017-07-16] MEDS: ENOXAPARIN NA (PORCINE) 100 MG/1 ML DISP.SYRIN SQ SCH ×2 (11:27→21:33)
[2017-07-16] MEDS: ISOSORBIDE MONONITRATE 60 MG TAB.SR.24H (FP) PO SCH (11:27)
[2017-07-16] MEDS ORDERED: POTASSIUM CHLORIDE 20 MEQ in SODIUM CHLORIDE 250 ML IVPB ONE (15:15)
[2017-07-16] MEDS: WARFARIN NA 5 MG TABLET (UD) PO SCH (18:44)
--- NOTE | 2017-07-16 19:55 | PN ---
Progress Note, Physician Chief Complaint: Pt A&Ox3; ambulates slowly around the room; still has paroxysms of chest tightness and shortness of breath. History of Present Illness: The patient is a 62 year old male, smonse Lopez), with a significant past medical history of AL, CAD with multiple coronary stents (the latest in ?2016), COPD, diastolic CHF, PAF (s/p ablation therapy x 2; followed by Dr. Brandyn Pollock, [facility]), hypertension, hyperlipidemia, morbid truncal obesity, and GERD, who presents to the emergency department with shortness of breath and associated chest pain for approximately 1 day, The patient reports acute worsening of his chronic shortness of breath. He reports associated left sided chest pain, non radiating in nature. He denies any diaphoresis, palpitations, or lower extremity edema. The patient was given SL nitro by EMS, which relieved his chest pain. He denies any vomiting, diarrhea, or constipation. He denies any fever, chills, cough, or dizziness. He denies any recent travel or sick contacts. - Current Medication List Current Medications: Active Medications Albuterol/Ipratropium (Duoneb -) 1 amp NEB RQID [facility] Last Admin: 07/16/17 16:28 Dose: 1 amp Amiodarone HCl (Cordarone -) 100 mg PO DAILY [facility] Atorvastatin Calcium (Lipitor -) 20 mg PO [facility] Last Admin: 07/15/17 21:54 Dose: 20 mg Diltiazem HCl (Cardizem Cd -) 120 mg PO DAILY [facility] Last Admin: 07/16/17 11:27 Dose: 120 mg Enoxaparin Sodium (Lovenox -) 100 mg SQ BID [facility] Last Admin: 07/16/17 11:27 Dose: 100 mg Fenofibric Acid (Trilipix -) 135 mg PO DAILY [facility] Last Admin: 07/16/17 09:06 Dose: 135 mg Furosemide (Lasix -) 40 mg PO BID@0600,1400 [facility] Last Admin: 07/16/17 14:59 Dose: 40 mg Isosorbide Mononitrate (Imdur -) 120 mg PO DAILY [facility] Last Admin: 07/16/17 11:27 Dose: 120 mg Lisinopril (Prinivil) 10 mg PO [facility] Last Admin: 07/15/17 21:54 Dose: 10 mg Metoprolol Succinate (Toprol Xl -) 100 mg PO DAILY [facility] Last Admin: 07/16/17 11:27 Dose: 100 mg Oxycodone HCl (Roxicodone -) 10 mg PO Q6H PRN PRN Reason: PAIN LEVEL 7 - 10 Last Admin: 07/16/17 18:44 Dose: 10 mg Oxycodone HCl (Roxicodone -) 30 mg PO HS PRN PRN Reason: PAIN LEVEL 7 - 10 Potassium Chloride (K-Dur -) 20 meq PO BID [facility] Prasugrel (Effient -) 5 mg PO DAILY [facility] Last Admin: 07/16/17 09:08 Dose: 5 mg Ranitidine HCl (Zantac -) 150 mg PO DAILY [facility] Last Admin: 07/16/17 09:06 Dose: 150 mg Ranolazine (Ranexa -) 1,000 mg PO BID [facility] Last Admin: 07/16/17 09:06 Dose: 1,000 mg Sertraline HCl (Zoloft -) 50 mg PO DAILY [facility] Last Admin: 07/16/17 09:06 Dose: 50 mg Sucralfate (Carafate -) 1 gm PO QID [facility] Last Admin: 07/16/17 18:44 Dose: 1 gm Warfarin Sodium (Coumadin -) 5 mg PO DAILY@1800 [facility] Last Admin: 07/16/17 18:44 Dose: 5 mg - Objective Vital Signs: Vital Signs Temperature 98.6 F 07/16/17 18:00 Pulse Rate 56 L 07/16/17 18:00 Respiratory Rate 19 07/16/17 18:00 Blood Pressure 102/57 07/16/17 18:00 O2 Sat by Pulse Oximetry (%) 97 07/16/17 09:00 Constitutional: Yes: No Distress Eyes: Yes: WNL HENT: Yes: WNL Neck: Yes: WNL Cardiovascular: Yes: Bradycardia Respiratory: Yes: Regular Gastrointestinal: Yes: Soft, Abdomen, Obese ...Rectal Exam: Yes: Deferred Genitourinary: No: Anuria Musculoskeletal: Yes: Muscle Weakness Extremities: Yes: WNL Edema: No Peripheral Pulses WNL: Yes Integumentary: Yes: WNL Neurological: Yes: WNL Psychiatric: Yes: Other (anxiety) Labs: CBC, BMP 07/14/17 13:10 07/16/17 06:00 INR, PTT INR 1.27 (0.82-1.09) H 07/16/17 06:00 Abnormal Lab Results 07/17/17 07/17/17 07/17/17 06:00 06:00 06:00 RBC 3.90 L Hgb 11.2 L Hct 32.7 L Monocytes % 10.8 H PT with INR 17.70 H INR 1.57 H Sodium 135 L Anion Gap 6 L AST 12 L Alkaline Phosphatase 35 L Problem List - Problems (1) CAD (coronary artery disease) Assessment/Plan: TNI 0.02-->0.03 EKG: NSR; bifascicular block; no acute STT changes. BNP > 1,600 Treating for acute diastolic CHF 8 lb wt loss in past 48 hours. Hx coronary angiogram 2016: nonobstructive disease. For stress MIBI (if unable to exercise, will do Lexiscan: pt has COPD, but no asthma) when stable. Code(s): I25.10 - ATHSCL HEART DISEASE OF [place] CORONARY ARTERY W/O ANG PCTRS (2) COPD (chronic obstructive pulmonary disease) Assessment/Plan: pulmonary clinic/rehab Code(s): J44.9 - CHRONIC OBSTRUCTIVE PULMONARY DISEASE, UNSPECIFIED (3) Acute coronary syndrome Assessment/Plan: hx AL (most recently had NSTEMI with recurrence of AF with RVR). For stress Lexiscan MIBI. Code(s): I24.9 - ACUTE ISCHEMIC HEART DISEASE, UNSPECIFIED (4) Acute on chronic diastolic (congestive) heart failure Code(s): I50.33 - ACUTE ON CHRONIC DIASTOLIC (CONGESTIVE) HEART FAILURE (5) Aortic stenosis Assessment/Plan: moderate by 2017 ECHO. F/u LVEF, valve status. Code(s): I35.0 - NONRHEUMATIC AORTIC (VALVE) STENOSIS (6) Bifascicular bundle branch block Code(s): I45.2 - BIFASCICULAR BLOCK (7) Chest pain Code(s): R07.9 - CHEST PAIN, UNSPECIFIED (8) Obstructive sleep apnea Assessment/Plan: therapy per golf range attendant/sleep specialist: uses ?nasal CPAP, though admits he only keeps it on for a few hours nightly. The importance of weight loss as potential aid in ameliorating this condition was emphasized. Code(s): G47.33 - OBSTRUCTIVE SLEEP APNEA (ADULT) (PEDIATRIC) (9) Chronic back pain Code(s): M54.9 - DORSALGIA, UNSPECIFIED; G89.29 - OTHER CHRONIC PAIN (10) History of coronary artery stent placement Assessment/Plan: Last coronary angiogram, 2015, did not require PCI. Spoke with pt's interventionalist, Dr. Coyle. Will have pt undergo stress MIBI. Code(s): Z95.5 - PRESENCE OF CORONARY ANGIOPLASTY IMPLANT AND GRAFT (11) Hyperlipidemia Assessment/Plan: LDL cholesterol 97 mg/dL; if this level was taken while pt was on atorvastatin 20 mg daily, would increase the dose to keep LDL < 70 mg/dL. Code(s): E78.5 - HYPERLIPIDEMIA, UNSPECIFIED (12) Hypertension Code(s): I10 - ESSENTIAL (PRIMARY) HYPERTENSION (13) S/P ablation of atrial fibrillation Assessment/Plan: Discussed pt with his guitar instructor, Dr. Brandyn Pollock, particularly regarding the need for continuation of amiodarone, given its many potential adverse side effects. Ft has extensive electrical disease in the [place], which puts him at higher risk for future recurrences of AF. (In addition, when he had an AF recurrence, he developed a NSTEMI). He suggested continuing amiodarone, but decreasing the dose from 200 mg to 100 mg daily. Interactions with other medications, eg diltiazem and warfarin, need to be taken into consideration, as well as interval checks using tools such as chest CT to r/o pulmonary complications; TFTs, etc. Code(s): Z98.890 - OTHER SPECIFIED POSTPROCEDURAL STATES; Z86.79 - PERSONAL HISTORY OF OTHER DISEASES OF THE CIRCULATORY SYSTEM (14) On amiodarone therapy Assessment/Plan: see under "ablation of atrial fibrillation" Code(s): Z79.899 - OTHER [place] (CURRENT) DRUG THERAPY (15) Obesity Assessment/Plan: The importance of heart-healthy diet, exercise, and portion control as aids to weight loss was again discussed. Code(s): E66.9 - OBESITY, UNSPECIFIED
[2017-07-16] MEDS: ATORVASTATIN CA 20 MG TABLET (FP) PO SCH (21:33)
[2017-07-16] MEDS: LISINOPRIL 10 MG TABLET (FP) PO SCH (21:33)
[2017-07-17] MEDS: FUROSEMIDE 40 MG TABLET (FP) PO SCH ×2 (05:53→14:21)
[2017-07-17] MEDS: oxyCODONE HCL 5 MG TABLET PO PRN ×4 (06:02→22:05)
[2017-07-17 06:48] LABS: BASO % 0.6 % (0-2.0); EOS % 4.5 % (0-4.5); HEMATOCRIT 32.7 % (35.4-49); HEMOGLOBIN 11.2 GM/dL (11.7-16.9); LYMPH % 30.1 % (8-40); MCH 28.6 pg (25.7-33.7); MCHC 34.1 g/dl (32.0-35.9); MEAN CELL VOLUME 83.9 fl (80-96); MEAN PLT VOLUME 7.6 fl (7.5-11.1); MONO % 10.8 % (3.8-10.2); PLATELET COUNT 191 K/MM3 (134-434); RDW 13.9 % (11.9-15.9); WHITE BLOOD COUNT 6.1 K/mm3 (4.0-10.0)
[2017-07-17 07:08] LABS: ALBUMIN 3.4 g/dl (3.4-5.0); ANION GAP 6 (8-16); BLOOD UREA NITROGEN 17 mg/dL (7-18); CHLORIDE 100 mmol/L (98-107); CO2 29 mmol/L (21-32); GLUCOSE,RANDOM 101 mg/dL (74-106); POTASSIUM 3.5 mmol/L (3.5-5.1); SGOT/AST 12 U/L (15-37); SGPT/ALT 15 U/L (12-78); SODIUM 135 mmol/L (136-145)
[2017-07-17 07:12] LABS: ALK PHOS 35 U/L (45-117); BILIRUBIN,TOTAL 0.5 mg/dL (0.2-1.0); TOT PROT 6.6 g/dl (6.4-8.2)
[2017-07-17 07:19] LABS: INR 1.57 (0.82-1.09); PROTHROMBIN TIME (PATIENT) 17.7 SEC (9.7-13.0)
[2017-07-17] MEDS: ALBUTEROL SO4 2.5/IPRATROPIUM 0.5 INH SOL 3 ML VIAL.NEB. NEB SCH ×4 (07:56→20:15)
[2017-07-17] MEDS: RANOLAZINE E.R. 1,000 MG TABLET (FP) PO SCH ×2 (10:02→21:19)
[2017-07-17] MEDS: FENOFIBRIC ACID 135 MG CAP PO SCH (10:02)
[2017-07-17] MEDS: SERTRALINE HCL 50 MG TABLET (FP) PO SCH (10:03)
[2017-07-17] MEDS: RANITIDINE HCL 150 MG TABLET (FP) PO SCH (10:03)
[2017-07-17] MEDS: SUCRALFATE 1 GM TABLET (FP) PO SCH ×4 (10:03→21:18)
[2017-07-17] MEDS: POTASSIUM CHLORIDE TABS 20 MEQ TABLET.ER (FP) PO SCH ×2 (10:03→21:18)
[2017-07-17] MEDS: ENOXAPARIN NA (PORCINE) 100 MG/1 ML DISP.SYRIN SQ SCH ×2 (10:03→21:20)
--- NOTE | 2017-07-17 10:31 | PN ---
Progress Note, Physician - Current Medication List Current Medications: Active Medications Albuterol/Ipratropium (Duoneb -) 1 amp NEB RQID [facility] Last Admin: 07/17/17 07:56 Dose: 1 amp Amiodarone HCl (Cordarone -) 100 mg PO DAILY [facility] Atorvastatin Calcium (Lipitor -) 20 mg PO HS [facility] Last Admin: 07/16/17 21:33 Dose: 20 mg Diltiazem HCl (Cardizem Cd -) 120 mg PO DAILY [facility] Last Admin: 07/16/17 11:27 Dose: 120 mg Enoxaparin Sodium (Lovenox -) 100 mg SQ BID [facility] Last Admin: 07/17/17 10:03 Dose: 100 mg Fenofibric Acid (Trilipix -) 135 mg PO DAILY [facility] Last Admin: 07/17/17 10:02 Dose: 135 mg Furosemide (Lasix -) 40 mg PO BID@0600,1400 [facility] Last Admin: 07/17/17 05:53 Dose: 40 mg Isosorbide Mononitrate (Imdur -) 120 mg PO DAILY [facility] Last Admin: 07/16/17 11:27 Dose: 120 mg Lisinopril (Prinivil) 10 mg PO HS [facility] Last Admin: 07/16/17 21:33 Dose: 10 mg Metoprolol Succinate (Toprol Xl -) 100 mg PO DAILY [facility] Last Admin: 07/16/17 11:27 Dose: 100 mg Oxycodone HCl (Roxicodone -) 10 mg PO Q6H PRN PRN Reason: PAIN LEVEL 7 - 10 Last Admin: 07/17/17 06:02 Dose: 10 mg Oxycodone HCl (Roxicodone -) 30 mg PO HS PRN PRN Reason: PAIN LEVEL 7 - 10 Last Admin: 07/16/17 22:48 Dose: 30 mg Potassium Chloride (K-Dur -) 20 meq PO BID [facility] Last Admin: 07/17/17 10:03 Dose: 20 meq Prasugrel (Effient -) 5 mg PO DAILY [facility] Last Admin: 07/16/17 09:08 Dose: 5 mg Ranitidine HCl (Zantac -) 150 mg PO DAILY [facility] Last Admin: 07/17/17 10:03 Dose: 150 mg Ranolazine (Ranexa -) 1,000 mg PO BID [facility] Last Admin: 07/17/17 10:02 Dose: 1,000 mg Sertraline HCl (Zoloft -) 50 mg PO DAILY [facility] Last Admin: 07/17/17 10:03 Dose: 50 mg Sucralfate (Carafate -) 1 gm PO QID [facility] Last Admin: 07/17/17 10:03 Dose: 1 gm Warfarin Sodium (Coumadin -) 5 mg PO DAILY@1800 [facility] Last Admin: 07/16/17 18:44 Dose: 5 mg - Objective Vital Signs: Vital Signs Temperature 98.4 F 07/17/17 09:58 Pulse Rate 53 L 07/17/17 09:58 Respiratory Rate 07/17/17 09:58 Blood Pressure 107/57 07/17/17 09:58 O2 Sat by Pulse Oximetry (%) 96 07/17/17 09:00 Cardiovascular: Yes: S1, S2 Respiratory: Yes: Regular, CTA Bilaterally Gastrointestinal: Yes: Normal Bowel Sounds, Soft Labs: CBC, BMP 07/17/17 06:00 07/17/17 06:00 INR, PTT INR 1.57 (0.82-1.09) H 07/17/17 06:00 Assessment/Plan - Problems (1) Acute exacerbation of CHF (congestive heart failure) Assessment/Plan: telemetry iv lasix-to po echo and stress test---d/w cardio and pt imdur toprol trend CE elevated bnp, trend acei Code(s): I50.9 - HEART FAILURE, UNSPECIFIED (2) Atypical chest pain Assessment/Plan: r/o [place] CE cardiology on board statin BB ranexa trilipix Code(s): R07.89 - OTHER CHEST PAIN (3) Paroxysmal a-fib Assessment/Plan: coumadin check INR lovenox rate control cardizem and BB Code(s): I48.0 - PAROXYSMAL ATRIAL FIBRILLATION (4) Hypokalemia Assessment/Plan: start k dur Code(s): E87.6 - HYPOKALEMIA (5) CAD (coronary artery disease) Assessment/Plan: s/p multiple stents stress test Code(s): I25.10 - ATHSCL HEART DISEASE OF [place] CORONARY ARTERY W/O ANG PCTRS (6) COPD (chronic obstructive pulmonary disease) Assessment/Plan: BB,trilipix prasugrel ranexa Code(s): J44.9 - CHRONIC OBSTRUCTIVE PULMONARY DISEASE, UNSPECIFIED
[2017-07-17] MEDS: PRASUGREL HCL 5 MG TAB PO SCH (10:35)
[2017-07-17] MEDS: ISOSORBIDE MONONITRATE 60 MG TAB.SR.24H (FP) PO SCH (12:02)
[2017-07-17] MEDS ORDERED: TAMSULOSIN HCL 0.4 MG CAP.ER.24H (FP) PO ONE (12:15)
[2017-07-17] MEDS: AMIODARONE HCL 200 MG TABLET (FP) PO SCH (12:52)
[2017-07-17] MEDS: WARFARIN NA 5 MG TABLET (UD) PO SCH (17:59)
--- NOTE | 2017-07-17 21:00 | PN ---
Progress Note, Physician Chief Complaint: Pt A&Ox3; asymptomatic. History of Present Illness: The patient is a 62 year old male, (fatimah Lopez), with a significant past medical history of NSTEMI, CAD with multiple coronary stents (the latest in ?2016; no PCI was needed), COPD, diastolic CHF, PAF (s/p ablation therapy x 2; followed by Dr. Brandyn Pollock, [facility]), hypertension, hyperlipidemia, truncal obesity, and GERD, who presents to the emergency department with shortness of breath and associated chest pain for approximately 1 day, The patient reports acute worsening of his chronic shortness of breath. He reports associated left sided chest pain, non radiating in nature. He denies any diaphoresis, palpitations, or lower extremity edema. The patient was given SL nitro by EMS, which relieved his chest pain. He denies any vomiting, diarrhea, or constipation. He denies any fever, chills, cough, or dizziness. He denies any recent travel or sick contacts. - Current Medication List Current Medications: Active Medications Albuterol/Ipratropium (Duoneb -) 1 amp NEB RQID [facility] Last Admin: 07/17/17 15:22 Dose: 1 amp Amiodarone HCl (Cordarone -) 100 mg PO DAILY [facility] Last Admin: 07/17/17 12:52 Dose: Not Given Atorvastatin Calcium (Lipitor -) 20 mg PO HS [facility] Last Admin: 07/16/17 21:33 Dose: 20 mg Diltiazem HCl (Cardizem Cd -) 120 mg PO DAILY [facility] Last Admin: 07/17/17 12:03 Dose: 120 mg Enoxaparin Sodium (Lovenox -) 100 mg SQ BID [facility] Last Admin: 07/17/17 10:03 Dose: 100 mg Fenofibric Acid (Trilipix -) 135 mg PO DAILY [facility] Last Admin: 07/17/17 10:02 Dose: 135 mg Furosemide (Lasix -) 40 mg PO BID@0600,1400 [facility] Last Admin: 07/17/17 14:21 Dose: 40 mg Isosorbide Mononitrate (Imdur -) 120 mg PO DAILY [facility] Last Admin: 07/17/17 12:02 Dose: 120 mg Lisinopril (Prinivil) 10 mg PO HS [facility] Last Admin: 07/16/17 21:33 Dose: 10 mg Metoprolol Succinate (Toprol Xl -) 100 mg PO DAILY [facility] Last Admin: 07/17/17 12:53 Dose: Not Given Oxycodone HCl (Roxicodone -) 10 mg PO Q6H PRN PRN Reason: PAIN LEVEL 7 - 10 Last Admin: 07/17/17 17:59 Dose: 10 mg Oxycodone HCl (Roxicodone -) 30 mg PO HS PRN PRN Reason: PAIN LEVEL 7 - 10 Last Admin: 07/16/17 22:48 Dose: 30 mg Potassium Chloride (K-Dur -) 20 meq PO BID [facility] Last Admin: 07/17/17 10:03 Dose: 20 meq Prasugrel (Effient -) 5 mg PO DAILY [facility] Last Admin: 07/17/17 10:35 Dose: 5 mg Ranitidine HCl (Zantac -) 150 mg PO DAILY [facility] Last Admin: 07/17/17 10:03 Dose: 150 mg Ranolazine (Ranexa -) 1,000 mg PO BID [facility] Last Admin: 07/17/17 10:02 Dose: 1,000 mg Sertraline HCl (Zoloft -) 50 mg PO DAILY [facility] Last Admin: 07/17/17 10:03 Dose: 50 mg Sucralfate (Carafate -) 1 gm PO QID [facility] Last Admin: 07/17/17 17:59 Dose: 1 gm Tamsulosin HCl (Flomax -) 0.4 mg PO DAILY@0830 [facility] Warfarin Sodium (Coumadin -) 5 mg PO DAILY@1800 [facility] Last Admin: 07/17/17 17:59 Dose: 5 mg - Objective Vital Signs: Vital Signs Temperature 98.2 F 07/17/17 18:00 Pulse Rate 57 L 07/17/17 18:00 Respiratory Rate 19 07/17/17 18:00 Blood Pressure 108/56 07/17/17 18:00 O2 Sat by Pulse Oximetry (%) 96 07/17/17 09:00 Constitutional: Yes: Calm, Obese Eyes: Yes: WNL HENT: Yes: WNL Neck: Yes: WNL Cardiovascular: Yes: S1, S2 (split) Respiratory: Yes: WNL Gastrointestinal: Yes: Soft, Abdomen, Obese ...Rectal Exam: Yes: Deferred Genitourinary: No: Anuria Musculoskeletal: Yes: Joint Stiffness, Muscle Weakness Extremities: Yes: WNL Edema: No Peripheral Pulses WNL: Yes Integumentary: Yes: WNL Neurological: Yes: WNL Psychiatric: Yes: Other (anxiety) Labs: CBC, BMP 07/17/17 06:00 07/17/17 06:00 INR, PTT INR 1.57 (0.82-1.09) H 07/17/17 06:00 Problem List - Problems (1) CAD (coronary artery disease) Assessment/Plan: TNI 0.02-->0.03 EKG: NSR; bifascicular block; no acute STT changes. BNP > 1,600 Treating for acute diastolic CHF. Hx coronary angiogram 2016: nonobstructive disease. For stress MIBI (if unable to exercise,, as pt says, will do Lexiscan: pt has COPD, but no asthma) when stable. Code(s): I25.10 - ATHSCL HEART DISEASE OF [place] CORONARY ARTERY W/O ANG PCTRS (2) COPD (chronic obstructive pulmonary disease) Assessment/Plan: pulmonary clinic/rehab Code(s): J44.9 - CHRONIC OBSTRUCTIVE PULMONARY DISEASE, UNSPECIFIED (3) Acute coronary syndrome Assessment/Plan: hx [place] (most recently had NSTEMI with recurrence of AF with RVR). For stress Lexiscan MIBI. Code(s): I24.9 - ACUTE ISCHEMIC HEART DISEASE, UNSPECIFIED (4) Acute on chronic diastolic (congestive) heart failure Code(s): I50.33 - ACUTE ON CHRONIC DIASTOLIC (CONGESTIVE) HEART FAILURE (5) Aortic stenosis Assessment/Plan: moderate by 2017 ECHO. F/u ECHO for LVEF, valve status. Code(s): I35.0 - NONRHEUMATIC AORTIC (VALVE) STENOSIS (6) Bifascicular bundle branch block Code(s): I45.2 - BIFASCICULAR BLOCK (7) Chest pain Code(s): R07.9 - CHEST PAIN, UNSPECIFIED (8) Obstructive sleep apnea Assessment/Plan: therapy per product marketing consultant/sleep specialist: uses ?nasal CPAP, though admits he only keeps it on for a few hours nightly. The importance of weight loss as potential aid in ameliorating this condition was emphasized. Code(s): G47.33 - OBSTRUCTIVE SLEEP APNEA (ADULT) (PEDIATRIC) (9) Chronic back pain Code(s): M54.9 - DORSALGIA, UNSPECIFIED; G89.29 - OTHER CHRONIC PAIN (10) History of coronary artery stent placement Assessment/Plan: Last coronary angiogram, 2015, did not require PCI. Spoke with pt's interventionalist, Dr. Coyle. Will have pt undergo stress MIBI. Code(s): Z95.5 - PRESENCE OF CORONARY ANGIOPLASTY IMPLANT AND GRAFT (11) Hyperlipidemia Assessment/Plan: LDL cholesterol 97 mg/dL; if this level was taken while pt was on atorvastatin 20 mg daily, would increase the dose to keep LDL < 70 mg/dL. Code(s): E78.5 - HYPERLIPIDEMIA, UNSPECIFIED (12) Hypertension Code(s): I10 - ESSENTIAL (PRIMARY) HYPERTENSION (13) S/P ablation of atrial fibrillation Assessment/Plan: Discussed pt with his paragliding instructor, Dr. Brandyn Pollock, particularly regarding the need for continuation of amiodarone, given its many potential adverse side effects. Ft has extensive electrical disease in the [place], which puts him at higher risk for future recurrences of AF. (In addition, when he had an AF recurrence, he developed a NSTEMI). He suggested continuing amiodarone, but decreasing the dose from 200 mg to 100 mg daily. Interactions with other medications, eg diltiazem and warfarin, need to be taken into consideration, as well as interval checks using tools such as chest CT to r/o pulmonary complications; TFTs, etc. Code(s): Z98.890 - OTHER SPECIFIED POSTPROCEDURAL STATES; Z86.79 - PERSONAL HISTORY OF OTHER DISEASES OF THE CIRCULATORY SYSTEM (14) On amiodarone therapy Assessment/Plan: see under "ablation of atrial fibrillation" Code(s): Z79.899 - OTHER CORRECTION (CURRENT) DRUG THERAPY (15) Obesity Assessment/Plan: The importance of heart-healthy diet, exercise, and portion control as aids to weight loss was again discussed. Code(s): E66.9 - OBESITY, UNSPECIFIED
[2017-07-17] MEDS: ATORVASTATIN CA 20 MG TABLET (FP) PO SCH (21:18)
[2017-07-17] MEDS: LISINOPRIL 10 MG TABLET (FP) PO SCH (22:05)
[2017-07-18] MEDS: FUROSEMIDE 40 MG TABLET (FP) PO SCH ×2 (05:34→14:07)
[2017-07-18] MEDS: oxyCODONE HCL 5 MG TABLET PO PRN ×4 (05:36→23:40)
[2017-07-18 06:45] LABS: BASO % 0.6 % (0-2.0); EOS % 4.6 % (0-4.5); HEMATOCRIT 34.9 % (35.4-49); HEMOGLOBIN 11.8 GM/dL (11.7-16.9); LYMPH % 26.1 % (8-40); MCH 28.3 pg (25.7-33.7); MCHC 33.8 g/dl (32.0-35.9); MEAN CELL VOLUME 83.7 fl (80-96); MEAN PLT VOLUME 7.9 fl (7.5-11.1); MONO % 9.5 % (3.8-10.2); NEUT % 59.2 % (42.8-82.8); PLATELET COUNT 218 K/MM3 (134-434); RBC 4.17 M/mm3 (4.00-5.60); RDW 14.1 % (11.9-15.9); WHITE BLOOD COUNT 5.7 K/mm3 (4.0-10.0)
[2017-07-18 07:09] LABS: ALBUMIN 3.7 g/dl (3.4-5.0); ANION GAP 4 (8-16); BILIRUBIN,TOTAL 0.5 mg/dL (0.2-1.0); BLOOD UREA NITROGEN 14 mg/dL (7-18); CALCIUM 9.1 mg/dL (8.5-10.1); CHLORIDE 99 mmol/L (98-107); CO2 33 mmol/L (21-32); CREATININE 1.1 mg/dL (0.7-1.3); GLUCOSE,RANDOM 97 mg/dL (74-106); POTASSIUM 3.9 mmol/L (3.5-5.1); SGOT/AST 13 U/L (15-37); SGPT/ALT 16 U/L (12-78); SODIUM 136 mmol/L (136-145); TOT PROT 7.1 g/dl (6.4-8.2)
[2017-07-18 07:10] LABS: ALK PHOS 38 U/L (45-117)
[2017-07-18 07:16] LABS: INR 1.73 (0.82-1.09); PROTHROMBIN TIME (PATIENT) 19.5 SEC (9.7-13.0)
[2017-07-18] MEDS: ALBUTEROL SO4 2.5/IPRATROPIUM 0.5 INH SOL 3 ML VIAL.NEB. NEB SCH ×4 (07:48→20:00)
--- NOTE | 2017-07-18 08:44 | PN ---
Progress Note, Physician History of Present Illness: The patient is a 62 year old male, smonse Garland), with a significant past medical history of [place], CAD with multiple coronary stents (the latest in ?2016), COPD, diastolic CHF, PAF (s/p ablation therapy x 2; followed by Dr. Brandyn Pollock, [facility]), hypertension, hyperlipidemia, morbid truncal obesity, and GERD, who presents to the emergency department with shortness of breath and associated chest pain for approximately 1 day, The patient reports acute worsening of his chronic shortness of breath. He reports associated left sided chest pain, non radiating in nature. He denies any diaphoresis, palpitations, or lower extremity edema. The patient was given SL nitro by EMS, which relieved his chest pain. He denies any vomiting, diarrhea, or constipation. He denies any fever, chills, cough, or dizziness. He denies any recent travel or sick contacts. - Current Medication List Current Medications: Active Medications Albuterol/Ipratropium (Duoneb -) 1 amp NEB RQID [facility] Last Admin: 07/18/17 07:48 Dose: 1 amp Amiodarone HCl (Cordarone -) 100 mg PO DAILY [facility] Last Admin: 07/17/17 12:52 Dose: Not Given Atorvastatin Calcium (Lipitor -) 20 mg PO [facility] Last Admin: 07/17/17 21:18 Dose: 20 mg Diltiazem HCl (Cardizem Cd -) 120 mg PO DAILY [facility] Last Admin: 07/17/17 12:03 Dose: 120 mg Enoxaparin Sodium (Lovenox -) 100 mg SQ BID [facility] Last Admin: 07/17/17 21:20 Dose: 100 mg Fenofibric Acid (Trilipix -) 135 mg PO DAILY [facility] Last Admin: 07/17/17 10:02 Dose: 135 mg Furosemide (Lasix -) 40 mg PO BID@0600,1400 [facility] Last Admin: 07/18/17 05:34 Dose: 40 mg Isosorbide Mononitrate (Imdur -) 120 mg PO DAILY [facility] Last Admin: 07/17/17 12:02 Dose: 120 mg Lisinopril (Prinivil) 10 mg PO HS [facility] Last Admin: 07/17/17 22:05 Dose: 10 mg Metoprolol Succinate (Toprol Xl -) 100 mg PO DAILY [facility] Last Admin: 07/17/17 12:53 Dose: Not Given Oxycodone HCl (Roxicodone -) 10 mg PO Q6H PRN PRN Reason: PAIN LEVEL 7 - 10 Last Admin: 07/18/17 05:36 Dose: 10 mg Oxycodone HCl (Roxicodone -) 30 mg PO HS PRN PRN Reason: PAIN LEVEL 7 - 10 Last Admin: 07/17/17 22:05 Dose: 30 mg Potassium Chloride (K-Dur -) 20 meq PO BID [facility] Last Admin: 07/17/17 21:18 Dose: 20 meq Prasugrel (Effient -) 5 mg PO DAILY [facility] Last Admin: 07/17/17 10:35 Dose: 5 mg Ranitidine HCl (Zantac -) 150 mg PO DAILY [facility] Last Admin: 07/17/17 10:03 Dose: 150 mg Ranolazine (Ranexa -) 1,000 mg PO BID [facility] Last Admin: 07/17/17 21:19 Dose: 1,000 mg Sertraline HCl (Zoloft -) 50 mg PO DAILY [facility] Last Admin: 07/17/17 10:03 Dose: 50 mg Sucralfate (Carafate -) 1 gm PO QID [facility] Last Admin: 07/17/17 21:18 Dose: 1 gm Tamsulosin HCl (Flomax -) 0.4 mg PO DAILY@0830 [facility] Warfarin Sodium (Coumadin -) 5 mg PO DAILY@1800 [facility] Last Admin: 07/17/17 17:59 Dose: 5 mg - Objective Vital Signs: Vital Signs Temperature 98.6 F 07/18/17 06:00 Pulse Rate 57 L 07/18/17 06:00 Respiratory Rate 19 07/18/17 06:00 Blood Pressure 124/73 07/18/17 06:00 O2 Sat by Pulse Oximetry (%) 99 07/18/17 07:41 Eyes: Yes: WNL, Conjunctiva Clear, EOM Intact HENT: Yes: WNL, Atraumatic, Normocephalic Neck: Yes: WNL, Supple, Trachea Midline Cardiovascular: Yes: WNL, Regular Rate and Rhythm Respiratory: Yes: WNL, Regular, CTA Bilaterally Gastrointestinal: Yes: WNL, Normal Bowel Sounds Genitourinary: Yes: WNL Musculoskeletal: Yes: WNL Extremities: Yes: WNL Edema: No Integumentary: Yes: WNL Neurological: Yes: WNL, Alert, Oriented ...Motor Strength: WNL Psychiatric: Yes: WNL Labs: CBC, BMP 07/18/17 06:25 07/18/17 06:25 INR, PTT INR 1.73 (0.82-1.09) H 07/18/17 06:25 Problem List - Problems (1) Acute exacerbation of CHF (congestive heart failure) Code(s): I50.9 - HEART FAILURE, UNSPECIFIED (2) TRACY (acute kidney injury) Code(s): N17.9 - ACUTE KIDNEY FAILURE, UNSPECIFIED (3) Acute coronary syndrome Code(s): I24.9 - ACUTE ISCHEMIC HEART DISEASE, UNSPECIFIED (4) Acute on chronic diastolic (congestive) heart failure Code(s): I50.33 - ACUTE ON CHRONIC DIASTOLIC (CONGESTIVE) HEART FAILURE (5) Aortic stenosis Code(s): I35.0 - NONRHEUMATIC AORTIC (VALVE) STENOSIS (6) Atypical chest pain Code(s): R07.89 - OTHER CHEST PAIN (7) Bifascicular bundle branch block Code(s): I45.2 - BIFASCICULAR BLOCK (8) CAP (community acquired pneumonia) Code(s): J18.9 - PNEUMONIA, UNSPECIFIED ORGANISM Qualifiers: (9) CHF (congestive heart failure) Code(s): I50.9 - HEART FAILURE, UNSPECIFIED (10) COPD exacerbation Code(s): J44.1 - CHRONIC OBSTRUCTIVE PULMONARY DISEASE W (ACUTE) EXACERBATION (11) Chest heaviness Code(s): R07.89 - OTHER CHEST PAIN (12) Chest pain Code(s): R07.9 - CHEST PAIN, UNSPECIFIED (13) Contusion of rib on right side Code(s): S20.211A - CONTUSION OF RIGHT FRONT WALL OF THORAX, INITIAL ENCOUNTER (14) Demand ischemia Code(s): I24.8 - OTHER FORMS OF ACUTE ISCHEMIC HEART DISEASE (15) Dyspnea Code(s): R06.00 - DYSPNEA, UNSPECIFIED (16) Elevated troponin Code(s): R79.89 - OTHER SPECIFIED ABNORMAL FINDINGS OF BLOOD CHEMISTRY (17) Epigastric abdominal pain Code(s): R10.13 - EPIGASTRIC PAIN (18) Epistaxis Code(s): R04.0 - EPISTAXIS (19) Hypertriglyceridemia Code(s): E78.1 - PURE HYPERGLYCERIDEMIA (20) Hypokalemia Code(s): E87.6 - HYPOKALEMIA (21) Hypotension Code(s): I95.9 - HYPOTENSION, UNSPECIFIED (22) Hypothyroid Code(s): E03.9 - HYPOTHYROIDISM, UNSPECIFIED (23) LPRD (laryngopharyngeal reflux disease) Code(s): K21.9 - GASTRO-ESOPHAGEAL REFLUX DISEASE WITHOUT ESOPHAGITIS (24) Leg pain Code(s): M79.606 - PAIN IN LEG, UNSPECIFIED (25) Moderate aortic stenosis Code(s): I35.0 - NONRHEUMATIC AORTIC (VALVE) STENOSIS (26) Myocardial disease Code(s): I51.5 - MYOCARDIAL DEGENERATION (27) Nausea Code(s): R11.0 - NAUSEA (28) Obesity Code(s): E66.9 - OBESITY, UNSPECIFIED (29) Obstructive sleep apnea Code(s): G47.33 - OBSTRUCTIVE SLEEP APNEA (ADULT) (PEDIATRIC) (30) PAF (paroxysmal atrial fibrillation) Code(s): I48.0 - PAROXYSMAL ATRIAL FIBRILLATION (31) Paroxysmal a-fib Code(s): I48.0 - PAROXYSMAL ATRIAL FIBRILLATION (32) Pleural effusion Code(s): J90 - PLEURAL EFFUSION, NOT ELSEWHERE CLASSIFIED (33) Pneumonia Code(s): J18.9 - PNEUMONIA, UNSPECIFIED ORGANISM (34) Presence of stent in coronary artery in patient with coronary artery disease Code(s): I25.10 - ATHSCL HEART DISEASE OF [place] CORONARY ARTERY W/O ANG PCTRS; Z95.5 - PRESENCE OF CORONARY ANGIOPLASTY IMPLANT AND GRAFT (35) Rib fractures Code(s): S22.39XA - FRACTURE OF ONE RIB, UNSP SIDE, INIT FOR CLOS FX (36) SOB (shortness of breath) Code(s): R06.02 - SHORTNESS OF BREATH (37) Sepsis Code(s): A41.9 - SEPSIS, UNSPECIFIED ORGANISM (38) Atrial fibrillation Code(s): I48.91 - UNSPECIFIED ATRIAL FIBRILLATION (39) CAD (coronary artery disease) Code(s): I25.10 - ATHSCL HEART DISEASE OF [place] CORONARY ARTERY W/O ANG PCTRS Qualifiers: (40) COPD (chronic obstructive pulmonary disease) Code(s): J44.9 - CHRONIC OBSTRUCTIVE PULMONARY DISEASE, UNSPECIFIED Qualifiers: (41) Chronic abdominal pain Code(s): R10.9 - UNSPECIFIED ABDOMINAL PAIN; G89.29 - OTHER CHRONIC PAIN (42) Chronic back pain Code(s): M54.9 - DORSALGIA, UNSPECIFIED; G89.29 - OTHER CHRONIC PAIN (43) Chronic diastolic heart failure Code(s): I50.32 - CHRONIC DIASTOLIC (CONGESTIVE) HEART FAILURE (44) Constipation Code(s): K59.00 - CONSTIPATION, UNSPECIFIED (45) History of coronary artery stent placement Code(s): Z95.5 - PRESENCE OF CORONARY ANGIOPLASTY IMPLANT AND GRAFT (46) Hyperlipidemia Code(s): E78.5 - HYPERLIPIDEMIA, UNSPECIFIED (47) Hypertension Code(s): I10 - ESSENTIAL (PRIMARY) HYPERTENSION Assessment/Plan Problems (1) CAD (coronary artery disease) Assessment/Plan: TNI 0.02-->0.03 EKG: NSR; bifascicular block; no acute STT changes. BNP > 1,600 Treating for acute diastolic CHF. Hx coronary angiogram 2016: nonobstructive disease. For stress MIBI (if unable to exercise,, as pt says, will do Lexiscan: pt has COPD, but no asthma) tomorrow. Code(s): I25.10 - ATHSCL HEART DISEASE OF [place] CORONARY ARTERY W/O ANG PCTRS (2) COPD (chronic obstructive pulmonary disease) Assessment/Plan: pulmonary clinic/rehab Code(s): J44.9 - CHRONIC OBSTRUCTIVE PULMONARY DISEASE, UNSPECIFIED (3) Acute coronary syndrome Assessment/Plan: hx [place] (most recently had NSTEMI with recurrence of AF with RVR). For stress Lexiscan MIBI. Code(s): I24.9 - ACUTE ISCHEMIC HEART DISEASE, UNSPECIFIED (4) Acute on chronic diastolic (congestive) heart failure Code(s): I50.33 - ACUTE ON CHRONIC DIASTOLIC (CONGESTIVE) HEART FAILURE (5) Aortic stenosis Assessment/Plan: moderate by 2017 ECHO. F/u ECHO for LVEF, valve status. Code(s): I35.0 - NONRHEUMATIC AORTIC (VALVE) STENOSIS (6) Bifascicular bundle branch block Code(s): I45.2 - BIFASCICULAR BLOCK (7) Chest pain Code(s): R07.9 - CHEST PAIN, UNSPECIFIED (8) Obstructive sleep apnea Assessment/Plan: therapy per account development manager/sleep specialist: uses ?nasal CPAP, though admits he only keeps it on for a few hours nightly. The importance of weight loss as potential aid in ameliorating this condition was emphasized. Code(s): G47.33 - OBSTRUCTIVE SLEEP APNEA (ADULT) (PEDIATRIC) (9) Chronic back pain Code(s): M54.9 - DORSALGIA, UNSPECIFIED; G89.29 - OTHER CHRONIC PAIN (10) History of coronary artery stent placement Assessment/Plan: Last coronary angiogram, 2015, did not require PCI. Spoke with pt's interventionalist, Dr. Coyle. Will have pt undergo stress MIBI. Code(s): Z95.5 - PRESENCE OF CORONARY ANGIOPLASTY IMPLANT AND GRAFT (11) Hyperlipidemia Assessment/Plan: LDL cholesterol 97 mg/dL; if this level was taken while pt was on atorvastatin 20 mg daily, would increase the dose to keep LDL < 70 mg/dL. Code(s): E78.5 - HYPERLIPIDEMIA, UNSPECIFIED (12) Hypertension Code(s): I10 - ESSENTIAL (PRIMARY) HYPERTENSION (13) S/P ablation of atrial fibrillation Assessment/Plan: Discussed pt with his precision honing machine operator, Dr. Brandyn Pollock, particularly regarding the need for continuation of amiodarone, given its many potential adverse side effects. Ft has extensive electrical disease in the [place], which puts him at higher risk for future recurrences of AF. (In addition, when he had an AF recurrence, he developed a NSTEMI). He suggested continuing amiodarone, but decreasing the dose from 200 mg to 100 mg daily. Interactions with other medications, eg diltiazem and warfarin, need to be taken into consideration, as well as interval checks using tools such as chest CT to r/o pulmonary complications; TFTs, etc. Code(s): Z98.890 - OTHER SPECIFIED POSTPROCEDURAL STATES; Z86.79 - PERSONAL HISTORY OF OTHER DISEASES OF THE CIRCULATORY SYSTEM (14) On amiodarone therapy Assessment/Plan: see under "ablation of atrial fibrillation" Code(s): Z79.899 - OTHER LUG LOADER (CURRENT) DRUG THERAPY (15) Obesity Assessment/Plan: The importance of heart-healthy diet, exercise, and portion control as aids to weight loss was again discussed. Code(s): E66.9 - OBESITY, UNSPECIFIED
[2017-07-18] MEDS ORDERED: RANOLAZINE E.R. 500 MG TABLET (FP) ONE (12:05)
[2017-07-18] MEDS: TAMSULOSIN HCL 0.4 MG CAP.ER.24H (FP) PO SCH (12:09)
[2017-07-18] MEDS: RANOLAZINE E.R. 1,000 MG TABLET (FP) PO SCH ×2 (12:09→21:21)
[2017-07-18] MEDS: ISOSORBIDE MONONITRATE 60 MG TAB.SR.24H (FP) PO SCH (12:09)
[2017-07-18] MEDS: RANITIDINE HCL 150 MG TABLET (FP) PO SCH (12:09)
[2017-07-18] MEDS: SUCRALFATE 1 GM TABLET (FP) PO SCH ×4 (12:09→21:22)
[2017-07-18] MEDS: FENOFIBRIC ACID 135 MG CAP PO SCH (12:09)
[2017-07-18] MEDS: POTASSIUM CHLORIDE TABS 20 MEQ TABLET.ER (FP) PO SCH ×2 (12:10→21:22)
[2017-07-18] MEDS: AMIODARONE HCL 200 MG TABLET (FP) PO SCH (12:10)
[2017-07-18] MEDS: ENOXAPARIN NA (PORCINE) 100 MG/1 ML DISP.SYRIN SQ SCH ×2 (12:10→21:23)
[2017-07-18] MEDS: SERTRALINE HCL 50 MG TABLET (FP) PO SCH (12:10)
[2017-07-18] MEDS: PRASUGREL HCL 5 MG TAB PO SCH (12:11)
[2017-07-18] MEDS: WARFARIN NA 5 MG TABLET (UD) PO SCH (17:18)
--- NOTE | 2017-07-18 17:23 | PN ---
Progress Note, Physician Chief Complaint: EVENTS AND NOTES REVIEWED STRESS TEST CANCELLED TODAY RETRY TOMORROW DENIES CHEST PAIN C/O EPIGASTRIC BURNING - Current Medication List Current Medications: Active Medications Albuterol/Ipratropium (Duoneb -) 1 amp NEB RQID [facility] Last Admin: 07/18/17 11:29 Dose: Not Given Amiodarone HCl (Cordarone -) 100 mg PO DAILY [facility] Last Admin: 07/18/17 12:10 Dose: 100 mg Atorvastatin Calcium (Lipitor -) 20 mg PO HS [facility] Last Admin: 07/17/17 21:18 Dose: 20 mg Diltiazem HCl (Cardizem Cd -) 120 mg PO DAILY [facility] Last Admin: 07/18/17 12:10 Dose: 120 mg Enoxaparin Sodium (Lovenox -) 100 mg SQ BID [facility] Last Admin: 07/18/17 12:10 Dose: 100 mg Fenofibric Acid (Trilipix -) 135 mg PO DAILY [facility] Last Admin: 07/18/17 12:09 Dose: 135 mg Furosemide (Lasix -) 40 mg PO BID@0600,1400 [facility] Last Admin: 07/18/17 14:07 Dose: 40 mg Isosorbide Mononitrate (Imdur -) 120 mg PO DAILY [facility] Last Admin: 07/18/17 12:09 Dose: 120 mg Lisinopril (Prinivil) 10 mg PO HS [facility] Last Admin: 07/17/17 22:05 Dose: 10 mg Metoprolol Succinate (Toprol Xl -) 100 mg PO DAILY [facility] Last Admin: 07/18/17 12:09 Dose: 100 mg Oxycodone HCl (Roxicodone -) 10 mg PO Q6H PRN PRN Reason: PAIN LEVEL 7 - 10 Last Admin: 07/18/17 12:11 Dose: 10 mg Oxycodone HCl (Roxicodone -) 30 mg PO HS PRN PRN Reason: PAIN LEVEL 7 - 10 Last Admin: 07/17/17 22:05 Dose: 30 mg Potassium Chloride (K-Dur -) 20 meq PO BID [facility] Last Admin: 07/18/17 12:10 Dose: 20 meq Prasugrel (Effient -) 5 mg PO DAILY [facility] Last Admin: 07/18/17 12:11 Dose: 5 mg Ranitidine HCl (Zantac -) 150 mg PO DAILY [facility] Last Admin: 07/18/17 12:09 Dose: 150 mg Ranolazine (Ranexa -) 1,000 mg PO BID [facility] Last Admin: 07/18/17 12:09 Dose: 1,000 mg Sertraline HCl (Zoloft -) 50 mg PO DAILY [facility] Last Admin: 07/18/17 12:10 Dose: 50 mg Sucralfate (Carafate -) 1 gm PO QID [facility] Last Admin: 07/18/17 14:39 Dose: 1 gm Tamsulosin HCl (Flomax -) 0.4 mg PO DAILY@0830 [facility] Last Admin: 07/18/17 12:09 Dose: 0.4 mg Warfarin Sodium (Coumadin -) 5 mg PO DAILY@1800 [facility] Last Admin: 07/17/17 17:59 Dose: 5 mg - Objective Vital Signs: Vital Signs Temperature 98.2 F 07/18/17 14:00 Pulse Rate 62 07/18/17 14:00 Respiratory Rate 20 07/18/17 14:00 Blood Pressure 113/69 07/18/17 14:00 O2 Sat by Pulse Oximetry (%) 96 07/18/17 10:00 Constitutional: Yes: Mild Distress Eyes: Yes: WNL HENT: Yes: WNL Neck: Yes: WNL Cardiovascular: Yes: WNL Respiratory: Yes: WNL Gastrointestinal: Yes: Tenderness, Epigastrium Genitourinary: Yes: WNL Musculoskeletal: Yes: WNL Extremities: Yes: WNL Edema: No Peripheral Pulses WNL: Yes Integumentary: Yes: WNL Wound/Incision: Yes: Clean/Dry Neurological: Yes: WNL ...Motor Strength: WNL Psychiatric: Yes: WNL Labs: CBC, BMP 07/18/17 06:25 07/18/17 06:25 INR, PTT INR 1.73 (0.82-1.09) H 07/18/17 06:25 Problem List - Problems (1) Acute exacerbation of CHF (congestive heart failure) Code(s): I50.9 - HEART FAILURE, UNSPECIFIED (2) CAD (coronary artery disease) Code(s): I25.10 - ATHSCL HEART DISEASE OF [place] CORONARY ARTERY W/O ANG PCTRS (3) COPD (chronic obstructive pulmonary disease) Code(s): J44.9 - CHRONIC OBSTRUCTIVE PULMONARY DISEASE, UNSPECIFIED (4) On amiodarone therapy Code(s): Z79.899 - OTHER SAND HAULER (CURRENT) DRUG THERAPY (5) S/P ablation of atrial fibrillation Code(s): Z98.890 - OTHER SPECIFIED POSTPROCEDURAL STATES; Z86.79 - PERSONAL HISTORY OF OTHER DISEASES OF THE CIRCULATORY SYSTEM (6) Epigastric abdominal pain Code(s): R10.13 - EPIGASTRIC PAIN Assessment/Plan CARDIAC WORKUP IN PROGRESS STRESS TEST IN AM CONTINUE TELEMETRY MONITORING PROTONIX IV X 1 LOVENOX AND BRIDGE COUMADIN FOR INR BETWEEN 2-3
[2017-07-18] MEDS ORDERED: PANTOPRAZOLE SODIUM 40 MG VIAL IVPUSH ONE (18:00)
[2017-07-18] MEDS: LISINOPRIL 10 MG TABLET (FP) PO SCH (21:21)
[2017-07-18] MEDS: ATORVASTATIN CA 20 MG TABLET (FP) PO SCH (21:21)
--- NOTE | 2017-07-19 00:05 | EKG ---
Test Reason : Blood Pressure : / mmHG Vent. Rate : 053 BPM Atrial Rate : 053 BPM P-R Int : 218 ms QRS Dur : 162 ms QT Int : 516 ms P-R-T Axes : 072 -84 026 degrees QTc Int : 484 ms SINUS BRADYCARDIA WITH 1ST DEGREE A-V BLOCK RIGHT BUNDLE BRANCH BLOCK LEFT ANTERIOR FASCICULAR BLOCK BIFASCICULAR BLOCK ABNORMAL ECG WHEN COMPARED WITH ECG OF 15-JUL-2017 14:48, NO SIGNIFICANT CHANGE WAS FOUND Confirmed by CYNTHIA SCHAFER MD ([id number]) on 07/19/2017 12:04:44 AM Referred By: Aaliyah DUDLEY Confirmed By:CYNTHIA SCHAFER MD
--- NOTE | 2017-07-19 00:42 | EKG ---
Test Reason : Blood Pressure : / mmHG Vent. Rate : 065 BPM Atrial Rate : 065 BPM P-R Int : 200 ms QRS Dur : 170 ms QT Int : 514 ms P-R-T Axes : 077 -89 055 degrees QTc Int : 534 ms NORMAL SINUS RHYTHM RIGHT BUNDLE BRANCH BLOCK LEFT ANTERIOR FASCICULAR BLOCK BIFASCICULAR BLOCK LATERAL INFARCT (CITED ON OR BEFORE 14-JUL-2017) ABNORMAL ECG WHEN COMPARED WITH ECG OF 14-JUL-2017 12:56, NO SIGNIFICANT CHANGE WAS FOUND Confirmed by CYNTHIA SCHAFER MD ([id number]) on 07/19/2017 12:42:06 AM Referred By: Confirmed By:CYNTHIA SCHAFER MD
[2017-07-19] MEDS: oxyCODONE HCL 5 MG TABLET PO PRN ×4 (05:55→21:29)
[2017-07-19] MEDS: FUROSEMIDE 40 MG TABLET (FP) PO SCH ×2 (05:55→13:08)
--- NOTE | 2017-07-19 07:23 | PN ---
Progress Note, Physician - Current Medication List Current Medications: Active Medications Albuterol/Ipratropium (Duoneb -) 1 amp NEB RQID [facility] Last Admin: 07/18/17 20:00 Dose: 1 amp Amiodarone HCl (Cordarone -) 100 mg PO DAILY [facility] Last Admin: 07/18/17 12:10 Dose: 100 mg Atorvastatin Calcium (Lipitor -) 20 mg PO HS [facility] Last Admin: 07/18/17 21:21 Dose: 20 mg Diltiazem HCl (Cardizem Cd -) 120 mg PO DAILY [facility] Last Admin: 07/18/17 12:10 Dose: 120 mg Enoxaparin Sodium (Lovenox -) 100 mg SQ BID [facility] Last Admin: 07/18/17 21:23 Dose: 100 mg Fenofibric Acid (Trilipix -) 135 mg PO DAILY [facility] Last Admin: 07/18/17 12:09 Dose: 135 mg Furosemide (Lasix -) 40 mg PO BID@0600,1400 [facility] Last Admin: 07/19/17 05:55 Dose: Not Given Isosorbide Mononitrate (Imdur -) 120 mg PO DAILY [facility] Last Admin: 07/18/17 12:09 Dose: 120 mg Lisinopril (Prinivil) 10 mg PO HS [facility] Last Admin: 07/18/17 21:21 Dose: 10 mg Metoprolol Succinate (Toprol Xl -) 100 mg PO DAILY [facility] Last Admin: 07/18/17 12:09 Dose: 100 mg Oxycodone HCl (Roxicodone -) 10 mg PO Q6H PRN PRN Reason: PAIN LEVEL 7 - 10 Last Admin: 07/19/17 05:55 Dose: 10 mg Oxycodone HCl (Roxicodone -) 30 mg PO HS PRN PRN Reason: PAIN LEVEL 7 - 10 Last Admin: 07/18/17 23:40 Dose: 30 mg Potassium Chloride (K-Dur -) 20 meq PO BID [facility] Last Admin: 07/18/17 21:22 Dose: 20 meq Prasugrel (Effient -) 5 mg PO DAILY [facility] Last Admin: 07/18/17 12:11 Dose: 5 mg Ranitidine HCl (Zantac -) 150 mg PO DAILY [facility] Last Admin: 07/18/17 12:09 Dose: 150 mg Ranolazine (Ranexa -) 1,000 mg PO BID [facility] Last Admin: 07/18/17 21:21 Dose: 1,000 mg Sertraline HCl (Zoloft -) 50 mg PO DAILY [facility] Last Admin: 07/18/17 12:10 Dose: 50 mg Sucralfate (Carafate -) 1 gm PO QID [facility] Last Admin: 07/18/17 21:22 Dose: 1 gm Tamsulosin HCl (Flomax -) 0.4 mg PO DAILY@0830 [facility] Last Admin: 07/18/17 12:09 Dose: 0.4 mg Warfarin Sodium (Coumadin -) 5 mg PO DAILY@1800 [facility] Last Admin: 07/18/17 17:18 Dose: 5 mg - Objective Vital Signs: Vital Signs Temperature 98.3 F 07/19/17 05:51 Pulse Rate 55 L 07/19/17 05:51 Respiratory Rate 20 07/19/17 05:51 Blood Pressure 134/64 07/19/17 05:51 O2 Sat by Pulse Oximetry (%) 94 L 07/18/17 20:24 Cardiovascular: Yes: S1, S2 Respiratory: Yes: Regular, CTA Bilaterally Gastrointestinal: Yes: Normal Bowel Sounds, Soft Labs: CBC, BMP 07/18/17 06:25 07/18/17 06:25 INR, PTT INR 1.73 (0.82-1.09) H 07/18/17 06:25 Assessment/Plan - Problems (1) Acute exacerbation of CHF (congestive heart failure) Assessment/Plan: telemetry iv lasix-to po echo ef 55 % stress test--pending toprol trend CE elevated bnp, trend acei Code(s): I50.9 - HEART FAILURE, UNSPECIFIED (2) Atypical chest pain Assessment/Plan: r/o ID CE cardiology on board statin BB ranexa trilipix Code(s): R07.89 - OTHER CHEST PAIN (3) Paroxysmal a-fib Assessment/Plan: coumadin check INR lovenox rate control cardizem and BB Code(s): I48.0 - PAROXYSMAL ATRIAL FIBRILLATION (4) Hypokalemia Assessment/Plan: start k dur Code(s): E87.6 - HYPOKALEMIA (5) CAD (coronary artery disease) Assessment/Plan: s/p multiple stents stress test Code(s): I25.10 - ATHSCL HEART DISEASE OF [place] CORONARY ARTERY W/O ANG PCTRS (6) COPD (chronic obstructive pulmonary disease) Assessment/Plan: BB,trilipix prasugrel ranexa Code(s): J44.9 - CHRONIC OBSTRUCTIVE PULMONARY DISEASE, UNSPECIFIED
[2017-07-19 08:17] LABS: INR 2.5 (0.82-1.09); PROTHROMBIN TIME (PATIENT) 28.2 SEC (9.7-13.0)
[2017-07-19] MEDS: ALBUTEROL SO4 2.5/IPRATROPIUM 0.5 INH SOL 3 ML VIAL.NEB. NEB SCH ×4 (08:35→19:09)
--- NOTE | 2017-07-19 08:53 | PN ---
Progress Note, Physician Chief Complaint: Pt A&Ox3; no chest pain or shortness of breath. History of Present Illness: The patient is a 62 year old male, (fatimah Lopez), with a significant past medical history of NSTEMI, CAD with multiple coronary stents (the latest in ?2016; no PCI was needed), COPD, diastolic CHF, PAF (s/p ablation therapy x 2; followed by Dr. Brandyn Pollock, [facility]), hypertension, hyperlipidemia, truncal obesity, and GERD, who presents to the emergency department with shortness of breath and associated chest pain for approximately 1 day, The patient reports acute worsening of his chronic shortness of breath. He reports associated left sided chest pain, non radiating in nature. He denies any diaphoresis, palpitations, or lower extremity edema. The patient was given SL nitro by EMS, which relieved his chest pain. He denies any vomiting, diarrhea, or constipation. He denies any fever, chills, cough, or dizziness. He denies any recent travel or sick contacts. - Current Medication List Current Medications: Active Medications Albuterol/Ipratropium (Duoneb -) 1 amp NEB RQID [facility] Last Admin: 07/18/17 20:00 Dose: 1 amp Amiodarone HCl (Cordarone -) 100 mg PO DAILY [facility] Last Admin: 07/18/17 12:10 Dose: 100 mg Atorvastatin Calcium (Lipitor -) 20 mg PO [facility] Last Admin: 07/18/17 21:21 Dose: 20 mg Diltiazem HCl (Cardizem Cd -) 120 mg PO DAILY [facility] Last Admin: 07/18/17 12:10 Dose: 120 mg Enoxaparin Sodium (Lovenox -) 100 mg SQ BID [facility] Last Admin: 07/18/17 21:23 Dose: 100 mg Fenofibric Acid (Trilipix -) 135 mg PO DAILY [facility] Last Admin: 07/18/17 12:09 Dose: 135 mg Furosemide (Lasix -) 40 mg PO BID@0600,1400 [facility] Last Admin: 07/19/17 05:55 Dose: Not Given Isosorbide Mononitrate (Imdur -) 120 mg PO DAILY [facility] Last Admin: 07/18/17 12:09 Dose: 120 mg Lisinopril (Prinivil) 10 mg PO HS [facility] Last Admin: 07/18/17 21:21 Dose: 10 mg Metoprolol Succinate (Toprol Xl -) 100 mg PO DAILY [facility] Last Admin: 07/18/17 12:09 Dose: 100 mg Oxycodone HCl (Roxicodone -) 10 mg PO Q6H PRN PRN Reason: PAIN LEVEL 7 - 10 Last Admin: 07/19/17 05:55 Dose: 10 mg Oxycodone HCl (Roxicodone -) 30 mg PO HS PRN PRN Reason: PAIN LEVEL 7 - 10 Last Admin: 07/18/17 23:40 Dose: 30 mg Potassium Chloride (K-Dur -) 20 meq PO BID [facility] Last Admin: 07/18/17 21:22 Dose: 20 meq Prasugrel (Effient -) 5 mg PO DAILY [facility] Last Admin: 07/18/17 12:11 Dose: 5 mg Ranitidine HCl (Zantac -) 150 mg PO DAILY [facility] Last Admin: 07/18/17 12:09 Dose: 150 mg Ranolazine (Ranexa -) 1,000 mg PO BID [facility] Last Admin: 07/18/17 21:21 Dose: 1,000 mg Sertraline HCl (Zoloft -) 50 mg PO DAILY [facility] Last Admin: 07/18/17 12:10 Dose: 50 mg Sucralfate (Carafate -) 1 gm PO QID [facility] Last Admin: 07/18/17 21:22 Dose: 1 gm Tamsulosin HCl (Flomax -) 0.4 mg PO DAILY@0830 [facility] Last Admin: 07/18/17 12:09 Dose: 0.4 mg Warfarin Sodium (Coumadin -) 5 mg PO DAILY@1800 [facility] Last Admin: 07/18/17 17:18 Dose: 5 mg - Objective Vital Signs: Vital Signs Temperature 98.3 F 07/19/17 05:51 Pulse Rate 55 L 07/19/17 05:51 Respiratory Rate 20 07/19/17 05:51 Blood Pressure 134/64 07/19/17 05:51 O2 Sat by Pulse Oximetry (%) 94 L 07/18/17 20:24 Constitutional: Yes: Calm, Obese Eyes: Yes: WNL HENT: Yes: WNL Neck: Yes: WNL Cardiovascular: Yes: WNL Respiratory: Yes: WNL Gastrointestinal: Yes: Soft, Abdomen, Obese ...Rectal Exam: Yes: Deferred Genitourinary: No: Anuria Breast(s): Yes: WNL Musculoskeletal: Yes: Muscle Weakness Extremities: Yes: WNL Peripheral Pulses WNL: Yes Integumentary: Yes: WNL Neurological: Yes: WNL Psychiatric: Yes: WNL Labs: CBC, BMP 07/18/17 06:25 07/18/17 06:25 INR, PTT INR 2.50 (0.82-1.09) H D 07/19/17 06:50 - ....Imaging Other: Image Reviewed (telemetry: sinus rhythm; no arrhythmias) Problem List - Problems (1) CAD (coronary artery disease) Assessment/Plan: TNI 0.02-->0.03 EKG: NSR; bifascicular block; no acute STT changes. BNP > 1,600 Treating for acute diastolic CHF. Hx coronary angiogram 2016: nonobstructive disease. For stress MIBI (if unable to exercise,, as pt says, will do Lexiscan: pt has COPD, but no asthma). Addendum: pt tried to exercise yesterday for stress test, but walked only a few minutes, and did not achieve target heart rate. He had had caffeine earlier. Plan: Lexiscan MIBI today. Code(s): I25.10 - ATHSCL HEART DISEASE OF [place] CORONARY ARTERY W/O ANG PCTRS (2) COPD (chronic obstructive pulmonary disease) Assessment/Plan: pulmonary clinic/rehab Code(s): J44.9 - CHRONIC OBSTRUCTIVE PULMONARY DISEASE, UNSPECIFIED (3) Acute coronary syndrome Assessment/Plan: hx [place] (most recently had NSTEMI with recurrence of AF with RVR). For stress Lexiscan MIBI. Code(s): I24.9 - ACUTE ISCHEMIC HEART DISEASE, UNSPECIFIED (4) Acute on chronic diastolic (congestive) heart failure Code(s): I50.33 - ACUTE ON CHRONIC DIASTOLIC (CONGESTIVE) HEART FAILURE (5) Aortic stenosis Assessment/Plan: ECHO 07/18/17: low normal LVEF; mild-moderate ; moderate LAE. Code(s): I35.0 - NONRHEUMATIC AORTIC (VALVE) STENOSIS (6) Bifascicular bundle branch block Code(s): I45.2 - BIFASCICULAR BLOCK (7) Chest pain Code(s): R07.9 - CHEST PAIN, UNSPECIFIED (8) Obstructive sleep apnea Assessment/Plan: therapy per nuclear engineer/sleep specialist: uses ?nasal CPAP, though admits he only keeps it on for a few hours nightly. The importance of weight loss as potential aid in ameliorating this condition was emphasized. Code(s): G47.33 - OBSTRUCTIVE SLEEP APNEA (ADULT) (PEDIATRIC) (9) Chronic back pain Code(s): M54.9 - DORSALGIA, UNSPECIFIED; G89.29 - OTHER CHRONIC PAIN (10) History of coronary artery stent placement Assessment/Plan: Last coronary angiogram, 2015, did not require PCI. Increase statin; keep LDL cholesterol < 70 mg/dL. Pm Effient. Spoke with pt's interventionalist, Dr. Coyle. Will have pt undergo stress MIBI. Code(s): Z95.5 - PRESENCE OF CORONARY ANGIOPLASTY IMPLANT AND GRAFT (11) Hyperlipidemia Assessment/Plan: LDL cholesterol 97 mg/dL;increased atorvastatin to 40 mg qd (LFTs not elevated). Code(s): E78.5 - HYPERLIPIDEMIA, UNSPECIFIED (12) Hypertension Code(s): I10 - ESSENTIAL (PRIMARY) HYPERTENSION (13) S/P ablation of atrial fibrillation Assessment/Plan: Discussed pt with his bakery helper, Dr. Brandyn Pollock, particularly regarding the need for continuation of amiodarone, given its many potential adverse side effects. Ft has extensive electrical disease in the LA, which puts him at higher risk for future recurrences of AF. (In addition, when he had an AF recurrence, he developed a NSTEMI). He suggested continuing amiodarone, but decreasing the dose from 200 mg to 100 mg daily. Interactions with other medications, eg diltiazem and warfarin, need to be taken into consideration, as well as interval checks using tools such as chest CT to r/o pulmonary complications; TFTs, etc. Pt is also on metorprolol ER (PAF; low-normal LVEF; HTN). On warfarin. Code(s): Z98.890 - OTHER SPECIFIED POSTPROCEDURAL STATES; Z86.79 - PERSONAL HISTORY OF OTHER DISEASES OF THE CIRCULATORY SYSTEM (14) On amiodarone therapy Assessment/Plan: see under "ablation of atrial fibrillation" Code(s): Z79.899 - OTHER INTERMEDIATE (CURRENT) DRUG THERAPY (15) Obesity Assessment/Plan: The importance of heart-healthy diet, exercise, and portion control as aids to weight loss was again discussed. Code(s): E66.9 - OBESITY, UNSPECIFIED
[2017-07-19] MEDS ORDERED: REGADENOSON 0.4 MG/5 ML PRE-FILLED SYRINGE IVPUSH ONE ×2 (09:45→10:42)
[2017-07-19] MEDS ORDERED: oxyCODONE HCL 5 MG TABLET ONE (12:42)
[2017-07-19] MEDS: TAMSULOSIN HCL 0.4 MG CAP.ER.24H (FP) PO SCH (12:50)
[2017-07-19] MEDS: RANITIDINE HCL 150 MG TABLET (FP) PO SCH (12:50)
[2017-07-19] MEDS: FENOFIBRIC ACID 135 MG CAP PO SCH (12:50)
[2017-07-19] MEDS: ISOSORBIDE MONONITRATE 60 MG TAB.SR.24H (FP) PO SCH (12:50)
[2017-07-19] MEDS: RANOLAZINE E.R. 1,000 MG TABLET (FP) PO SCH ×2 (12:50→21:28)
[2017-07-19] MEDS: POTASSIUM CHLORIDE TABS 20 MEQ TABLET.ER (FP) PO SCH ×2 (12:50→21:28)
[2017-07-19] MEDS: SUCRALFATE 1 GM TABLET (FP) PO SCH ×4 (12:51→21:28)
[2017-07-19] MEDS: PRASUGREL HCL 5 MG TAB PO SCH (12:51)
[2017-07-19] MEDS: AMIODARONE HCL 200 MG TABLET (FP) PO SCH (12:51)
[2017-07-19] MEDS: ENOXAPARIN NA (PORCINE) 100 MG/1 ML DISP.SYRIN SQ SCH ×2 (12:52→21:28)
[2017-07-19] MEDS: SERTRALINE HCL 50 MG TABLET (FP) PO SCH (12:52)
[2017-07-19] MEDS: WARFARIN NA 5 MG TABLET (UD) PO SCH (17:56)
[2017-07-19] MEDS: LISINOPRIL 10 MG TABLET (FP) PO SCH (21:28)
[2017-07-19] MEDS: ATORVASTATIN CA 40 MG TABLET (FP) PO SCH (21:28)
[2017-07-20] MEDS: oxyCODONE HCL 5 MG TABLET PO PRN ×4 (05:45→23:03)
[2017-07-20] MEDS: FUROSEMIDE 40 MG TABLET (FP) PO SCH ×2 (07:01→14:33)
[2017-07-20] MEDS: ALBUTEROL SO4 2.5/IPRATROPIUM 0.5 INH SOL 3 ML VIAL.NEB. NEB SCH ×2 (07:37→11:32)
--- NOTE | 2017-07-20 07:50 | DS ---
Physical Examination Vital Signs: Vital Signs Temperature 97.9 F 07/20/17 06:00 Pulse Rate 52 L 07/20/17 06:59 Respiratory Rate 20 07/20/17 06:59 Blood Pressure 114/64 07/20/17 06:59 O2 Sat by Pulse Oximetry (%) 96 07/20/17 07:39 Cardiovascular: Yes: S1, S2 Respiratory: Yes: Regular, CTA Bilaterally Gastrointestinal: Yes: Normal Bowel Sounds, Soft Edema: No Labs: CBC, BMP 07/18/17 06:25 07/18/17 06:25 Discharge Summary Reason For Visit: ACUTE ON CHRONIC CHF Current Active Problems Acute exacerbation of CHF (congestive heart failure) (Acute) CAD (coronary artery disease) (Acute) COPD (chronic obstructive pulmonary disease) (Acute) On amiodarone therapy (Acute) S/P ablation of atrial fibrillation (Acute) Hospital Course: Patient is a 62M with history of afib, aortic stenosis, CF, HTN, HLD, ME, SVT, COPD and GERD here today complaining of chest pain. Patient states that he started feelng short of breath with a stabbing pain in the left side of his chest that was relieved with home nitroglycerin. Systolic BP was initially 200. Endorses associated chills and nausea. Denies fevers and chills. Denies leg swelling and history of blood clots. Patient reports compliance with his medications. - Problems (1) Acute exacerbation of CHF (congestive heart failure) Assessment/Plan: telemetry iv lasix-to po echo ef 55 % stress test--pending toprol trend CE elevated bnp, trend acei Code(s): I50.9 - HEART FAILURE, UNSPECIFIED (2) Atypical chest pain Assessment/Plan: r/o ME CE cardiology on board statin BB ranexa trilipix Code(s): R07.89 - OTHER CHEST PAIN (3) Paroxysmal a-fib Assessment/Plan: coumadin check INR lovenox rate control cardizem and BB Code(s): I48.0 - PAROXYSMAL ATRIAL FIBRILLATION (4) Hypokalemia Assessment/Plan: start k dur Code(s): E87.6 - HYPOKALEMIA (5) CAD (coronary artery disease) Assessment/Plan: s/p multiple stents stress test-positive--for cath Code(s): I25.10 - ATHSCL HEART DISEASE OF [place] CORONARY ARTERY W/O ANG PCTRS (6) COPD (chronic obstructive pulmonary disease) Assessment/Plan: BB,trilipix prasugrel ranexa Code(s): J44.9 - CHRONIC OBSTRUCTIVE PULMONARY DISEASE, UNSPECIFIED Condition: Stable - Instructions Referrals: Bari Nolan MD [Primary Care Provider] - - Home Medications Comprehensive Discharge Medication List: Ambulatory Orders Albuterol Sulfate [Proair Respiclick] 90 mcg IH PRN 08/22/16 Aspirin [ASA -] 81 mg PO ACDIN 08/22/16 Diltiazem HCl [Diltiazem 24Hr ER] 120 mg PO DAILY 08/22/16 Fenofibric Acid [Fibricor] 105 mg PO DAILY 08/22/16 Isosorbide Mononitrate [Isosorbide Mononitrate ER] 120 mg PO DAILY 08/22/16 Linaclotide [Linzess] 290 mcg PO BID 08/22/16 Lisinopril 10 mg PO HS 08/22/16 Metoclopramide HCl [Reglan] 10 mg PO PRN 08/22/16 Metoprolol Succinate [Toprol Xl] 100 mg PO DAILY 08/22/16 Nitroglycerin [place] [Nitrolingual [place] -] 1 spray TL PRN PRN 08/22/16 Oxycodone HCl 30 mg PO HS PRN 08/22/16 Pravastatin Sodium [Pravachol -] 80 mg PO HS 08/22/16 Ranolazine [Ranexa] 1,000 mg PO BID 08/22/16 Tamsulosin HCl [Flomax] 0.4 mg PO ACDIN 08/22/16 Beclomethasone Dipropionate [Qvar] 2 puff IH BID 01/16/17 Amiodarone HCl [Cordarone -] 200 mg PO DAILY 03/27/17 Hyoscyamine Sulfate 0.125 mg PO ASDIR PRN 03/27/17 Omeprazole 20 mg PO DAILY 03/27/17 Sertraline HCl 50 mg PO DAILY 03/27/17 Albuterol 2.5/Ipratropium 0.5 [Duoneb -] 1 amp NEB RQID amp 06/28/17 Furosemide [Lasix -] 60 mg PO DAILY 07/14/17 Prasugrel HCl [Effient] 5 mg PO DAILY 07/14/17 Ranitidine HCl [Zantac] 150 mg PO DAILY 07/14/17 Sucralfate [Carafate] 1 gm PO DAILY 07/14/17 Tiotropium Br/Olodaterol HCl [Stiolto Respimat Inhal [place]] 2.5 gm IH DAILY Warfarin Na [Coumadin -] 3 mg PO DAILY@1800 07/14/17
[2017-07-20] MEDS: TAMSULOSIN HCL 0.4 MG CAP.ER.24H (FP) PO SCH (08:32)
[2017-07-20] MEDS ORDERED: PT OWN MED DRAWER 7, Y5N ONE (10:19)
[2017-07-20] MEDS: AMIODARONE HCL 200 MG TABLET (FP) PO SCH (10:35)
[2017-07-20] MEDS: SUCRALFATE 1 GM TABLET (FP) PO SCH ×4 (10:35→21:54)
[2017-07-20] MEDS: PRASUGREL HCL 5 MG TAB PO SCH (10:38)
[2017-07-20] MEDS: POTASSIUM CHLORIDE TABS 20 MEQ TABLET.ER (FP) PO SCH ×2 (10:39→21:54)
[2017-07-20] MEDS: ENOXAPARIN NA (PORCINE) 100 MG/1 ML DISP.SYRIN SQ SCH (10:39)
[2017-07-20] MEDS: ISOSORBIDE MONONITRATE 60 MG TAB.SR.24H (FP) PO SCH (10:39)
[2017-07-20] MEDS: FENOFIBRIC ACID 135 MG CAP PO SCH (10:40)
[2017-07-20] MEDS: RANITIDINE HCL 150 MG TABLET (FP) PO SCH (10:40)
[2017-07-20] MEDS: RANOLAZINE E.R. 1,000 MG TABLET (FP) PO SCH ×2 (10:40→21:54)
[2017-07-20] MEDS: SERTRALINE HCL 50 MG TABLET (FP) PO SCH (10:41)
--- NOTE | 2017-07-20 11:12 | PN ---
Progress Note, Physician History of Present Illness: The patient is a 62 year old male, smonse Garland), with a significant past medical history of VT, CAD with multiple coronary stents (the latest in ?2016), COPD, diastolic CHF, PAF (s/p ablation therapy x 2; followed by Dr. Brandyn Pollock, [facility]), hypertension, hyperlipidemia, morbid truncal obesity, and GERD, who presents to the emergency department with shortness of breath and associated chest pain for approximately 1 day, The patient reports acute worsening of his chronic shortness of breath. He reports associated left sided chest pain, non radiating in nature. He denies any diaphoresis, palpitations, or lower extremity edema. The patient was given SL nitro by EMS, which relieved his chest pain. He denies any vomiting, diarrhea, or constipation. He denies any fever, chills, cough, or dizziness. He denies any recent travel or sick contacts. - Current Medication List Current Medications: Active Medications Albuterol/Ipratropium (Duoneb -) 1 amp NEB RQID [facility] Last Admin: 07/20/17 07:37 Dose: 1 amp Amiodarone HCl (Cordarone -) 100 mg PO DAILY [facility] Last Admin: 07/20/17 10:35 Dose: 100 mg Atorvastatin Calcium (Lipitor -) 40 mg PO HS [facility] Last Admin: 07/19/17 21:28 Dose: 40 mg Diltiazem HCl (Cardizem Cd -) 120 mg PO DAILY [facility] Last Admin: 07/20/17 10:35 Dose: 120 mg Fenofibric Acid (Trilipix -) 135 mg PO DAILY [facility] Last Admin: 07/20/17 10:40 Dose: 135 mg Furosemide (Lasix -) 40 mg PO BID@0600,1400 [facility] Last Admin: 07/20/17 07:01 Dose: 40 mg Isosorbide Mononitrate (Imdur -) 120 mg PO DAILY [facility] Last Admin: 07/20/17 10:39 Dose: 120 mg Lisinopril (Prinivil) 10 mg PO HS [facility] Last Admin: 07/19/17 21:28 Dose: 10 mg Metoprolol Succinate (Toprol Xl -) 100 mg PO DAILY [facility] Last Admin: 07/20/17 10:40 Dose: 100 mg Oxycodone HCl (Roxicodone -) 10 mg PO Q6H PRN PRN Reason: PAIN 7-10 Last Admin: 07/20/17 05:45 Dose: 10 mg Oxycodone HCl (Roxicodone -) 30 mg PO HS PRN PRN Reason: PAIN 7-10 Last Admin: 07/19/17 21:29 Dose: 30 mg Potassium Chloride (K-Dur -) 20 meq PO BID [facility] Last Admin: 07/20/17 10:39 Dose: 20 meq Prasugrel (Effient -) 5 mg PO DAILY [facility] Last Admin: 07/20/17 10:38 Dose: 5 mg Ranitidine HCl (Zantac -) 150 mg PO DAILY [facility] Last Admin: 07/20/17 10:40 Dose: 150 mg Ranolazine (Ranexa -) 1,000 mg PO BID [facility] Last Admin: 07/20/17 10:40 Dose: 1,000 mg Sertraline HCl (Zoloft -) 50 mg PO DAILY [facility] Last Admin: 07/20/17 10:41 Dose: 50 mg Sucralfate (Carafate -) 1 gm PO QID [facility] Last Admin: 07/19/17 21:28 Dose: 1 gm Tamsulosin HCl (Flomax -) 0.4 mg PO DAILY@0830 [facility] Last Admin: 07/20/17 08:32 Dose: 0.4 mg - Objective Vital Signs: Vital Signs Temperature 98.2 F 07/20/17 10:00 Pulse Rate 49 L 07/20/17 10:00 Respiratory Rate 18 07/20/17 10:00 Blood Pressure 104/48 07/20/17 10:00 O2 Sat by Pulse Oximetry (%) 96 07/20/17 07:39 Eyes: Yes: WNL, Conjunctiva Clear, EOM Intact HENT: Yes: WNL, Atraumatic, Normocephalic Neck: Yes: WNL, Supple, Trachea Midline Cardiovascular: Yes: WNL, Regular Rate and Rhythm Respiratory: Yes: WNL, Regular, CTA Bilaterally Gastrointestinal: Yes: WNL, Normal Bowel Sounds Genitourinary: Yes: WNL Musculoskeletal: Yes: WNL Extremities: Yes: WNL Edema: No Integumentary: Yes: WNL Neurological: Yes: WNL, Alert, Oriented ...Motor Strength: WNL Psychiatric: Yes: WNL Labs: CBC, BMP 07/18/17 06:25 07/18/17 06:25 INR, PTT INR 2.50 (0.82-1.09) H D 07/19/17 06:50 Problem List - Problems (1) Acute exacerbation of CHF (congestive heart failure) Code(s): I50.9 - HEART FAILURE, UNSPECIFIED (2) TRACY (acute kidney injury) Code(s): N17.9 - ACUTE KIDNEY FAILURE, UNSPECIFIED (3) Acute coronary syndrome Code(s): I24.9 - ACUTE ISCHEMIC HEART DISEASE, UNSPECIFIED (4) Acute on chronic diastolic (congestive) heart failure Code(s): I50.33 - ACUTE ON CHRONIC DIASTOLIC (CONGESTIVE) HEART FAILURE (5) Aortic stenosis Code(s): I35.0 - NONRHEUMATIC AORTIC (VALVE) STENOSIS (6) Atypical chest pain Code(s): R07.89 - OTHER CHEST PAIN (7) Bifascicular bundle branch block Code(s): I45.2 - BIFASCICULAR BLOCK (8) CAP (community acquired pneumonia) Code(s): J18.9 - PNEUMONIA, UNSPECIFIED ORGANISM Qualifiers: (9) CHF (congestive heart failure) Code(s): I50.9 - HEART FAILURE, UNSPECIFIED (10) COPD exacerbation Code(s): J44.1 - CHRONIC OBSTRUCTIVE PULMONARY DISEASE W (ACUTE) EXACERBATION (11) Chest heaviness Code(s): R07.89 - OTHER CHEST PAIN (12) Chest pain Code(s): R07.9 - CHEST PAIN, UNSPECIFIED (13) Contusion of rib on right side Code(s): S20.211A - CONTUSION OF RIGHT FRONT WALL OF THORAX, INITIAL ENCOUNTER (14) Demand ischemia Code(s): I24.8 - OTHER FORMS OF ACUTE ISCHEMIC HEART DISEASE (15) Dyspnea Code(s): R06.00 - DYSPNEA, UNSPECIFIED (16) Elevated troponin Code(s): R79.89 - OTHER SPECIFIED ABNORMAL FINDINGS OF BLOOD CHEMISTRY (17) Epigastric abdominal pain Code(s): R10.13 - EPIGASTRIC PAIN (18) Epistaxis Code(s): R04.0 - EPISTAXIS (19) Hypertriglyceridemia Code(s): E78.1 - PURE HYPERGLYCERIDEMIA (20) Hypokalemia Code(s): E87.6 - HYPOKALEMIA (21) Hypotension Code(s): I95.9 - HYPOTENSION, UNSPECIFIED (22) Hypothyroid Code(s): E03.9 - HYPOTHYROIDISM, UNSPECIFIED (23) LPRD (laryngopharyngeal reflux disease) Code(s): K21.9 - GASTRO-ESOPHAGEAL REFLUX DISEASE WITHOUT ESOPHAGITIS (24) Leg pain Code(s): M79.606 - PAIN IN LEG, UNSPECIFIED (25) Moderate aortic stenosis Code(s): I35.0 - NONRHEUMATIC AORTIC (VALVE) STENOSIS (26) Myocardial disease Code(s): I51.5 - MYOCARDIAL DEGENERATION (27) Nausea Code(s): R11.0 - NAUSEA (28) Obesity Code(s): E66.9 - OBESITY, UNSPECIFIED (29) Obstructive sleep apnea Code(s): G47.33 - OBSTRUCTIVE SLEEP APNEA (ADULT) (PEDIATRIC) (30) PAF (paroxysmal atrial fibrillation) Code(s): I48.0 - PAROXYSMAL ATRIAL FIBRILLATION (31) Paroxysmal a-fib Code(s): I48.0 - PAROXYSMAL ATRIAL FIBRILLATION (32) Pleural effusion Code(s): J90 - PLEURAL EFFUSION, NOT ELSEWHERE CLASSIFIED (33) Pneumonia Code(s): J18.9 - PNEUMONIA, UNSPECIFIED ORGANISM (34) Presence of stent in coronary artery in patient with coronary artery disease Code(s): I25.10 - ATHSCL HEART DISEASE OF [place] CORONARY ARTERY W/O ANG PCTRS; Z95.5 - PRESENCE OF CORONARY ANGIOPLASTY IMPLANT AND GRAFT (35) Rib fractures Code(s): S22.39XA - FRACTURE OF ONE RIB, UNSP SIDE, INIT FOR CLOS FX (36) SOB (shortness of breath) Code(s): R06.02 - SHORTNESS OF BREATH (37) Sepsis Code(s): A41.9 - SEPSIS, UNSPECIFIED ORGANISM (38) Atrial fibrillation Code(s): I48.91 - UNSPECIFIED ATRIAL FIBRILLATION (39) CAD (coronary artery disease) Code(s): I25.10 - ATHSCL HEART DISEASE OF [place] CORONARY ARTERY W/O ANG PCTRS Qualifiers: (40) COPD (chronic obstructive pulmonary disease) Code(s): J44.9 - CHRONIC OBSTRUCTIVE PULMONARY DISEASE, UNSPECIFIED Qualifiers: (41) Chronic abdominal pain Code(s): R10.9 - UNSPECIFIED ABDOMINAL PAIN; G89.29 - OTHER CHRONIC PAIN (42) Chronic back pain Code(s): M54.9 - DORSALGIA, UNSPECIFIED; G89.29 - OTHER CHRONIC PAIN (43) Chronic diastolic heart failure Code(s): I50.32 - CHRONIC DIASTOLIC (CONGESTIVE) HEART FAILURE (44) Constipation Code(s): K59.00 - CONSTIPATION, UNSPECIFIED (45) History of coronary artery stent placement Code(s): Z95.5 - PRESENCE OF CORONARY ANGIOPLASTY IMPLANT AND GRAFT (46) Hyperlipidemia Code(s): E78.5 - HYPERLIPIDEMIA, UNSPECIFIED (47) Hypertension Code(s): I10 - ESSENTIAL (PRIMARY) HYPERTENSION Assessment/Plan Problems (1) CAD (coronary artery disease) Assessment/Plan: TNI 0.02-->0.03 EKG: NSR; bifascicular block; no acute STT changes. BNP > 1,600 Treating for acute diastolic CHF. Hx coronary angiogram 2016: nonobstructive disease. For stress MIBI (if unable to exercise,, as pt says, will do Lexiscan: pt has COPD, but no asthma). Addendum: pt tried to exercise yesterday for stress test, but walked only a few minutes, and did not achieve target heart rate. He had had caffeine earlier. Plan: Lexiscan MIBI today. Code(s): I25.10 - ATHSCL HEART DISEASE OF [place] CORONARY ARTERY W/O ANG PCTRS (2) COPD (chronic obstructive pulmonary disease) Assessment/Plan: pulmonary clinic/rehab Code(s): J44.9 - CHRONIC OBSTRUCTIVE PULMONARY DISEASE, UNSPECIFIED (3) Acute coronary syndrome Assessment/Plan: hx [place] (most recently had NSTEMI with recurrence of AF with RVR). For stress Lexiscan MIBI. Code(s): I24.9 - ACUTE ISCHEMIC HEART DISEASE, UNSPECIFIED (4) Acute on chronic diastolic (congestive) heart failure Code(s): I50.33 - ACUTE ON CHRONIC DIASTOLIC (CONGESTIVE) HEART FAILURE (5) Aortic stenosis Assessment/Plan: ECHO 07/18/17: low normal LVEF; mild-moderate ; moderate LAE. Code(s): I35.0 - NONRHEUMATIC AORTIC (VALVE) STENOSIS (6) Bifascicular bundle branch block Code(s): I45.2 - BIFASCICULAR BLOCK (7) Chest pain Code(s): R07.9 - CHEST PAIN, UNSPECIFIED (8) Obstructive sleep apnea Assessment/Plan: therapy per tumbler operator/sleep specialist: uses ?nasal CPAP, though admits he only keeps it on for a few hours nightly. The importance of weight loss as potential aid in ameliorating this condition was emphasized. Code(s): G47.33 - OBSTRUCTIVE SLEEP APNEA (ADULT) (PEDIATRIC) (9) Chronic back pain Code(s): M54.9 - DORSALGIA, UNSPECIFIED; G89.29 - OTHER CHRONIC PAIN (10) History of coronary artery stent placement Assessment/Plan: Last coronary angiogram, 2015, did not require PCI. Increase statin; keep LDL cholesterol < 70 mg/dL. Pm Effient. Spoke with pt's interventionalist, Dr. Coyle. Will have pt undergo stress MIBI. Code(s): Z95.5 - PRESENCE OF CORONARY ANGIOPLASTY IMPLANT AND GRAFT (11) Hyperlipidemia Assessment/Plan: LDL cholesterol 97 mg/dL;increased atorvastatin to 40 mg qd (LFTs not elevated). Code(s): E78.5 - HYPERLIPIDEMIA, UNSPECIFIED (12) Hypertension Code(s): I10 - ESSENTIAL (PRIMARY) HYPERTENSION (13) S/P ablation of atrial fibrillation Assessment/Plan: Discussed pt with his formulation scientist, Dr. Brandyn Pollock, particularly regarding the need for continuation of amiodarone, given its many potential adverse side effects. Ft has extensive electrical disease in the [place], which puts him at higher risk for future recurrences of AF. (In addition, when he had an AF recurrence, he developed a NSTEMI). He suggested continuing amiodarone, but decreasing the dose from 200 mg to 100 mg daily. Interactions with other medications, eg diltiazem and warfarin, need to be taken into consideration, as well as interval checks using tools such as chest CT to r/o pulmonary complications; TFTs, etc. Pt is also on metorprolol ER (PAF; low-normal LVEF; HTN). On warfarin. Code(s): Z98.890 - OTHER SPECIFIED POSTPROCEDURAL STATES; Z86.79 - PERSONAL HISTORY OF OTHER DISEASES OF THE CIRCULATORY SYSTEM (14) On amiodarone therapy Assessment/Plan: see under "ablation of atrial fibrillation" Code(s): Z79.899 - OTHER NURSING HOME (CURRENT) DRUG THERAPY (15) Obesity Assessment/Plan: The importance of heart-healthy diet, exercise, and portion control as aids to weight loss was again discussed. Code(s): E66.9 - OBESITY, UNSPECIFIED
[2017-07-20 11:54] LABS: INR 3.06 (0.82-1.09); PROTHROMBIN TIME (PATIENT) 34.6 SEC (9.7-13.0)
[2017-07-20] MEDS ORDERED: PHYTONADIONE 10 MG/1 ML AMP IM ONE (14:53)
[2017-07-20] MEDS ORDERED: PHYTONADIONE IVPB ONE (15:15)
[2017-07-20] MEDS ORDERED: SODIUM CHLORIDE IVPB ONE (15:15)
[2017-07-20] MEDS: ATORVASTATIN CA 40 MG TABLET (FP) PO SCH (21:54)
[2017-07-20] MEDS: LISINOPRIL 10 MG TABLET (FP) PO SCH (21:54)
[2017-07-21] MEDS: oxyCODONE HCL 5 MG TABLET PO PRN ×4 (05:49→22:47)
[2017-07-21] MEDS: FUROSEMIDE 40 MG TABLET (FP) PO SCH ×2 (05:49→14:32)
[2017-07-21 08:52] LABS: INR 1.61 (0.82-1.09); PROTHROMBIN TIME (PATIENT) 18.2 SEC (9.7-13.0)
[2017-07-21] MEDS: SERTRALINE HCL 50 MG TABLET (FP) PO SCH (10:23)
[2017-07-21] MEDS: TAMSULOSIN HCL 0.4 MG CAP.ER.24H (FP) PO SCH (10:23)
[2017-07-21] MEDS: RANITIDINE HCL 150 MG TABLET (FP) PO SCH (10:23)
[2017-07-21] MEDS: SUCRALFATE 1 GM TABLET (FP) PO SCH ×4 (10:23→21:33)
[2017-07-21] MEDS: ISOSORBIDE MONONITRATE 60 MG TAB.SR.24H (FP) PO SCH (10:24)
[2017-07-21] MEDS: AMIODARONE HCL 200 MG TABLET (FP) PO SCH (10:24)
[2017-07-21] MEDS: PRASUGREL HCL 5 MG TAB PO SCH (10:25)
[2017-07-21] MEDS: FENOFIBRIC ACID 135 MG CAP PO SCH (10:25)
[2017-07-21] MEDS: RANOLAZINE E.R. 1,000 MG TABLET (FP) PO SCH ×2 (10:25→21:34)
[2017-07-21] MEDS: POTASSIUM CHLORIDE TABS 20 MEQ TABLET.ER (FP) PO SCH ×2 (10:25→21:34)
--- NOTE | 2017-07-21 12:51 | PN ---
Progress Note, Physician Chief Complaint: Pt A&Ox3; no chest pain or shortness of breath; ambulates slowly in hallway without symptoms. Pt's is present; I spoke with daughter by telephone. History of Present Illness: The patient is a 62 year old male, (fatimah Lopez), with a significant past medical history of NSTEMI, CAD with multiple coronary stents (the latest in ?2016; no PCI was needed), COPD, diastolic CHF, PAF (s/p ablation therapy x 2; followed by Dr. Brandyn Pollock, [facility]), hypertension, hyperlipidemia, truncal obesity, and GERD, who presents to the emergency department with shortness of breath and associated chest pain for approximately 1 day, The patient reports acute worsening of his chronic shortness of breath. He reports associated left sided chest pain, non radiating in nature. He denies any diaphoresis, palpitations, or lower extremity edema. The patient was given SL nitro by EMS, which relieved his chest pain. He denies any vomiting, diarrhea, or constipation. He denies any fever, chills, cough, or dizziness. He denies any recent travel or sick contacts. - Current Medication List Current Medications: Active Medications Amiodarone HCl (Cordarone -) 100 mg PO DAILY [facility] Last Admin: 07/21/17 10:24 Dose: 100 mg Atorvastatin Calcium (Lipitor -) 40 mg PO [facility] Last Admin: 07/20/17 21:54 Dose: 40 mg Diltiazem HCl (Cardizem Cd -) 120 mg PO DAILY [facility] Last Admin: 07/21/17 10:23 Dose: 120 mg Fenofibric Acid (Trilipix -) 135 mg PO DAILY [facility] Last Admin: 07/21/17 10:25 Dose: 135 mg Furosemide (Lasix -) 40 mg PO BID@0600,1400 [facility] Last Admin: 07/21/17 05:49 Dose: 40 mg Isosorbide Mononitrate (Imdur -) 120 mg PO DAILY [facility] Last Admin: 07/21/17 10:24 Dose: 120 mg Lisinopril (Prinivil) 10 mg PO HS [facility] Last Admin: 07/20/17 21:54 Dose: 10 mg Metoprolol Succinate (Toprol Xl -) 100 mg PO DAILY [facility] Last Admin: 07/21/17 10:23 Dose: 100 mg Oxycodone HCl (Roxicodone -) 10 mg PO Q6H PRN PRN Reason: PAIN 7-10 Last Admin: 07/21/17 11:36 Dose: 10 mg Oxycodone HCl (Roxicodone -) 30 mg PO HS PRN PRN Reason: PAIN 7-10 Last Admin: 07/20/17 23:03 Dose: 30 mg Potassium Chloride (K-Dur -) 20 meq PO BID [facility] Last Admin: 07/21/17 10:25 Dose: 20 meq Prasugrel (Effient -) 5 mg PO DAILY [facility] Last Admin: 07/21/17 10:25 Dose: 5 mg Ranitidine HCl (Zantac -) 150 mg PO DAILY [facility] Last Admin: 07/21/17 10:23 Dose: 150 mg Ranolazine (Ranexa -) 1,000 mg PO BID [facility] Last Admin: 07/21/17 10:25 Dose: 1,000 mg Sertraline HCl (Zoloft -) 50 mg PO DAILY [facility] Last Admin: 07/21/17 10:23 Dose: 50 mg Sucralfate (Carafate -) 1 gm PO QID [facility] Last Admin: 07/21/17 10:23 Dose: 1 gm Tamsulosin HCl (Flomax -) 0.4 mg PO DAILY@0830 [facility] Last Admin: 07/21/17 10:23 Dose: 0.4 mg - Objective Vital Signs: Vital Signs Temperature 98 F 07/21/17 02:00 Pulse Rate 53 L 07/21/17 02:00 Respiratory Rate 20 07/21/17 02:00 Blood Pressure 99/54 07/21/17 02:00 O2 Sat by Pulse Oximetry (%) 96 07/21/17 08:40 Constitutional: Yes: Anxious, Obese Eyes: Yes: WNL HENT: Yes: WNL Labs: CBC, BMP 07/18/17 06:25 07/18/17 06:25 INR, PTT INR 1.61 (0.82-1.09) H D 07/21/17 08:10 Problem List - Problems (1) CAD (coronary artery disease) Assessment/Plan: TNI 0.02-->0.03 EKG: NSR; bifascicular block; no acute STT changes. BNP > 1,600 Treating for acute diastolic CHF. Hx coronary angiogram 2016: nonobstructive disease. For stress MIBI (if unable to exercise,, as pt says, will do Lexiscan: pt has COPD, but no asthma). pt tried to exercise for stress test, but walked only a few minutes, and did not achieve target heart rate. He had had caffeine earlier. Plan: Lexiscan MIBI: + for ischemia. Pt will be transferred to [facility] for coronary angiogram. Code(s): I25.10 - ATHSCL HEART DISEASE OF [place] CORONARY ARTERY W/O ANG PCTRS (2) COPD (chronic obstructive pulmonary disease) Assessment/Plan: pulmonary clinic/rehab Code(s): J44.9 - CHRONIC OBSTRUCTIVE PULMONARY DISEASE, UNSPECIFIED (3) Acute coronary syndrome Assessment/Plan: hx [place] (most recently had NSTEMI with recurrence of AF with RVR). For stress Lexiscan MIBI. Code(s): I24.9 - ACUTE ISCHEMIC HEART DISEASE, UNSPECIFIED (4) Acute on chronic diastolic (congestive) heart failure Code(s): I50.33 - ACUTE ON CHRONIC DIASTOLIC (CONGESTIVE) HEART FAILURE (5) Aortic stenosis Assessment/Plan: ECHO 07/18/17: low normal LVEF; mild-moderate ; moderate LAE. Code(s): I35.0 - NONRHEUMATIC AORTIC (VALVE) STENOSIS (6) Bifascicular bundle branch block Code(s): I45.2 - BIFASCICULAR BLOCK (7) Chest pain Code(s): R07.9 - CHEST PAIN, UNSPECIFIED (8) Obstructive sleep apnea Assessment/Plan: therapy per slot machine department floorperson/sleep specialist: uses ?nasal CPAP, though admits he only keeps it on for a few hours nightly. The importance of weight loss as potential aid in ameliorating this condition was emphasized. Code(s): G47.33 - OBSTRUCTIVE SLEEP APNEA (ADULT) (PEDIATRIC) (9) Chronic back pain Code(s): M54.9 - DORSALGIA, UNSPECIFIED; G89.29 - OTHER CHRONIC PAIN (10) History of coronary artery stent placement Code(s): Z95.5 - PRESENCE OF CORONARY ANGIOPLASTY IMPLANT AND GRAFT (11) Hyperlipidemia Code(s): E78.5 - HYPERLIPIDEMIA, UNSPECIFIED (12) Hypertension Code(s): I10 - ESSENTIAL (PRIMARY) HYPERTENSION (13) S/P ablation of atrial fibrillation Assessment/Plan: Discussed pt with his feather shaper, Dr. Brandyn Pollock, particularly regarding the need for continuation of amiodarone, given its many potential adverse side effects. Ft has extensive electrical disease in the LA, which puts him at higher risk for future recurrences of AF. (In addition, when he had an AF recurrence, he developed a NSTEMI). He suggested continuing amiodarone, but decreasing the dose from 200 mg to 100 mg daily. Interactions with other medications, eg diltiazem and warfarin, need to be taken into consideration, as well as interval checks using tools such as chest CT to r/o pulmonary complications; TFTs, etc. Pt is also on metorprolol ER (PAF; low-normal LVEF; HTN). Warfarin held pending coronary angiogram. Code(s): Z98.890 - OTHER SPECIFIED POSTPROCEDURAL STATES; Z86.79 - PERSONAL HISTORY OF OTHER DISEASES OF THE CIRCULATORY SYSTEM (14) On amiodarone therapy Code(s): Z79.899 - OTHER CARDIAC CATH TECHNOLOGIST (CURRENT) DRUG THERAPY (15) Obesity Code(s): E66.9 - OBESITY, UNSPECIFIED
[2017-07-21] MEDS ORDERED: PT OWN MED DRAWER 7, Y5N ONE (18:31)
[2017-07-21 21:04] LABS: INR 1.49 (0.82-1.09); PROTHROMBIN TIME (PATIENT) 16.8 SEC (9.7-13.0)
[2017-07-21] MEDS: ATORVASTATIN CA 40 MG TABLET (FP) PO SCH (21:34)
[2017-07-21] MEDS: LISINOPRIL 10 MG TABLET (FP) PO SCH (21:34)
[2017-07-22] MEDS: FUROSEMIDE 40 MG TABLET (FP) PO SCH (05:47)
[2017-07-22] MEDS: oxyCODONE HCL 5 MG TABLET PO PRN ×2 (05:48→12:23)
--- NOTE | 2017-07-22 07:29 | DS ---
Physical Examination Vital Signs: Vital Signs Temperature 98.0 F 07/22/17 05:00 Pulse Rate 51 L 07/22/17 05:00 Respiratory Rate 20 07/22/17 05:00 Blood Pressure 122/59 07/22/17 05:00 O2 Sat by Pulse Oximetry (%) 94 L 07/21/17 21:00 Cardiovascular: Yes: S1, S2 Respiratory: Yes: Regular, CTA Bilaterally Gastrointestinal: Yes: Normal Bowel Sounds, Soft Labs: CBC, BMP 07/18/17 06:25 07/18/17 06:25 Discharge Summary Reason For Visit: ACUTE ON CHRONIC CHF Current Active Problems Acute exacerbation of CHF (congestive heart failure) (Acute) CAD (coronary artery disease) (Acute) COPD (chronic obstructive pulmonary disease) (Acute) On amiodarone therapy (Acute) S/P ablation of atrial fibrillation (Acute) Hospital Course: ya is a 62M with history of afib, aortic stenosis, CF, HTN, HLD, [place], SVT, COPD and GERD here today complaining of chest pain. Patient states that he started feelng short of breath with a stabbing pain in the left side of his chest that was relieved with home nitroglycerin. Systolic BP was initially 200. Endorses associated chills and nausea. Denies fevers and chills. Denies leg swelling and history of blood clots. Patient reports compliance with his medications. - Problems (1) Acute exacerbation of CHF (congestive heart failure) Assessment/Plan: telemetry iv lasix-to po echo ef 55 % stress test--pending toprol trend CE elevated bnp, trend acei Code(s): I50.9 - HEART FAILURE, UNSPECIFIED (2) Atypical chest pain Assessment/Plan: r/o [place] CE cardiology on board statin BB ranexa trilipix Code(s): R07.89 - OTHER CHEST PAIN (3) Paroxysmal a-fib Assessment/Plan: coumadin check INR lovenox rate control cardizem and BB Code(s): I48.0 - PAROXYSMAL ATRIAL FIBRILLATION (4) Hypokalemia Assessment/Plan: start k dur Code(s): E87.6 - HYPOKALEMIA (5) CAD (coronary artery disease) Assessment/Plan: s/p multiple stents stress test-positive--for cath Code(s): I25.10 - ATHSCL HEART DISEASE OF [place] CORONARY ARTERY W/O ANG PCTRS (6) COPD (chronic obstructive pulmonary disease) Assessment/Plan: BB,trilipix prasugrel ranexa Code(s): J44.9 - CHRONIC OBSTRUCTIVE PULMONARY DISEASE, UNSPECIFIED Condition: Stable - Instructions Referrals: Bari Nolan MD [Primary Care Provider] - - Home Medications Comprehensive Discharge Medication List: Ambulatory Orders Albuterol Sulfate [Proair Respiclick] 90 mcg IH PRN 08/22/16 Aspirin [ASA -] 81 mg PO ACDIN 08/22/16 Diltiazem HCl [Diltiazem 24Hr ER] 120 mg PO DAILY 08/22/16 Fenofibric Acid [Fibricor] 105 mg PO DAILY 08/22/16 Isosorbide Mononitrate [Isosorbide Mononitrate ER] 120 mg PO DAILY 08/22/16 Linaclotide [Linzess] 290 mcg PO BID 08/22/16 Lisinopril 10 mg PO HS 08/22/16 Metoclopramide HCl [Reglan] 10 mg PO PRN 08/22/16 Metoprolol Succinate [Toprol Xl] 100 mg PO DAILY 08/22/16 Nitroglycerin [place] [Nitrolingual [place] -] 1 spray TL PRN PRN 08/22/16 Oxycodone HCl 30 mg PO HS PRN 08/22/16 Pravastatin Sodium [Pravachol -] 80 mg PO HS 08/22/16 Ranolazine [Ranexa] 1,000 mg PO BID 08/22/16 Tamsulosin HCl [Flomax] 0.4 mg PO ACDIN 08/22/16 Beclomethasone Dipropionate [Qvar] 2 puff IH BID 01/16/17 Amiodarone HCl [Cordarone -] 200 mg PO DAILY 03/27/17 Hyoscyamine Sulfate 0.125 mg PO ASDIR PRN 03/27/17 Omeprazole 20 mg PO DAILY 03/27/17 Sertraline HCl 50 mg PO DAILY 03/27/17 Albuterol 2.5/Ipratropium 0.5 [Duoneb -] 1 amp NEB RQID amp 06/28/17 Furosemide [Lasix -] 60 mg PO DAILY 07/14/17 Prasugrel HCl [Effient] 5 mg PO DAILY 07/14/17 Ranitidine HCl [Zantac] 150 mg PO DAILY 07/14/17 Sucralfate [Carafate] 1 gm PO DAILY 07/14/17 Tiotropium Br/Olodaterol HCl [Stiolto Respimat Inhal [place]] 2.5 gm IH DAILY Warfarin Na [Coumadin -] 3 mg PO DAILY@1800 07/14/17 Albuterol 2.5/Ipratropium 0.5 [Duoneb -] 1 amp NEB RQID amp 07/21/17 Amiodarone HCl [Cordarone -] 100 mg PO DAILY tablet 07/21/17 Atorvastatin Ca [Lipitor] 40 mg PO HS tablet 07/21/17 Diltiazem Cd [Cardizem Cd -] 120 mg PO DAILY cap.cd.24h 07/21/17 Fenofibric Acid [Trilipix -] 135 mg PO DAILY cap 07/21/17 Furosemide [Lasix -] 40 mg PO BID@0600,1400 tablet 07/21/17 Isosorbide Mononitrate [Imdur -] 120 mg PO DAILY tab.sr.24h 07/21/17 Metoprolol Succinate [Toprol XL -] 100 mg PO DAILY tab.sr.24h 07/21/17 Potassium Chloride [K-Dur -] 20 meq PO BID tablet.er 07/21/17 Prasugrel Hydrochloride [Effient -] 5 mg PO DAILY tab 07/21/17 Ranitidine [Zantac -] 150 mg PO DAILY tablet 07/21/17 Ranolazine [Ranexa -] 1,000 mg PO BID tab 07/21/17 Sertraline HCl [Zoloft -] 50 mg PO DAILY tablet 07/21/17 Sucralfate [Carafate -] 1 gm PO QID tablet 07/21/17 Tamsulosin HCl [Flomax -] 0.4 mg PO DAILY@0830 cap.er.24h 07/21/17 Warfarin Na [Coumadin -] 5 mg PO DAILY@1800 tablet 07/21/17 oxyCODONE HCL [Roxicodone -] 10 mg PO Q6H PRN tablet MDD 4 07/21/17 oxyCODONE HCL [Roxicodone -] 30 mg PO HS PRN tablet MDD 1 07/21/17
[2017-07-22 08:03] LABS: INR 1.44 (0.82-1.09); PROTHROMBIN TIME (PATIENT) 16.3 SEC (9.7-13.0)
[2017-07-22] MEDS: POTASSIUM CHLORIDE TABS 20 MEQ TABLET.ER (FP) PO SCH (09:52)
[2017-07-22] MEDS: SERTRALINE HCL 50 MG TABLET (FP) PO SCH (09:53)
[2017-07-22] MEDS: SUCRALFATE 1 GM TABLET (FP) PO SCH (09:53)
[2017-07-22] MEDS: ISOSORBIDE MONONITRATE 60 MG TAB.SR.24H (FP) PO SCH (09:53)
[2017-07-22] MEDS: AMIODARONE HCL 200 MG TABLET (FP) PO SCH (09:53)
[2017-07-22] MEDS: TAMSULOSIN HCL 0.4 MG CAP.ER.24H (FP) PO SCH (09:53)
[2017-07-22] MEDS: RANITIDINE HCL 150 MG TABLET (FP) PO SCH (09:54)
[2017-07-22] MEDS: RANOLAZINE E.R. 1,000 MG TABLET (FP) PO SCH (09:54)
[2017-07-22] MEDS: PRASUGREL HCL 5 MG TAB PO SCH (09:54)
[2017-07-22] MEDS: FENOFIBRIC ACID 135 MG CAP PO SCH (09:54)
[2017-07-22 11:09] VITALS: BP 116/61; PULSE 49; TEMP 98.2
== END 2017-07-22 14:29 | disposition short-term general hospital (02) | DRG 292 ==
LOC: JER 12:48 → JERBED 16:13 → J4W 17:35
PROVIDERS: ADMIT Family Medicine; ATTEND Family Medicine
PROC: 5A09357 Assistance with Respiratory Ventilation, Less than 24 Consecutive Hours, Continuous Positive Airway Pressure (ICD-10-PCS; principal; 2017-07-14)
DX: I11.0 Hypertensive heart disease with heart failure (principal); I47.1 Supraventricular tachycardia; I45.2 Bifascicular block; I50.33 Acute on chronic diastolic (congestive) heart failure; I48.91 Unspecified atrial fibrillation; J44.9 Chronic obstructive pulmonary disease, unspecified; K21.9 Gastro-esophageal reflux disease without esophagitis; I25.2 Old myocardial infarction; Z95.5 Presence of coronary angioplasty implant and graft; Z87.891 Personal history of nicotine dependence; I44.0 Atrioventricular block, first degree; I25.10 Atherosclerotic heart disease of native coronary artery without angina pectoris; R07.89 Other chest pain; I48.0 Paroxysmal atrial fibrillation; E87.6 Hypokalemia; E66.1 Drug-induced obesity; Z68.36 Body mass index [BMI] 36.0-36.9, adult; G47.33 Obstructive sleep apnea (adult) (pediatric); I35.0 Nonrheumatic aortic (valve) stenosis
CPT/HCPCS: 36415; 71045-TC-FY; 78452-TC; 80053; 82550; 83735; 83880; 84484; 85025; 85610; 93005; 93010; 93017; 93306-TC; 94640; 94660; 99285-25; A9502; J2785; J7620

== ENCOUNTER 2018-03-01 21:51 | Emergency (ER) | payer OTHER ==
[2018-03-01 22:03] VITALS: BMI 35.2
[2018-03-01 23:27] LABS: BASO % 0.2 % (0-2.0); EOS % 0.5 % (0-4.5); HEMATOCRIT 34.5 % (35.4-49); HEMOGLOBIN 12.1 GM/dL (11.7-16.9); LYMPH % 5.2 % (8-40); MCH 29.4 pg (25.7-33.7); MCHC 35.2 g/dl (32.0-35.9); MEAN CELL VOLUME 83.5 fl (80-96); MEAN PLT VOLUME 7.5 fl (7.5-11.1); MONO % 7.1 % (3.8-10.2); PLATELET COUNT 255 K/MM3 (134-434); RBC 4.13 M/mm3 (4.00-5.60); RDW 13.6 % (11.9-15.9)
[2018-03-01 23:47] LABS: INR 2.26 (0.83-1.09); PROTHROMBIN TIME (PATIENT) 26.9 SEC (9.7-13.0)
--- NOTE | 2018-03-01 23:57 | PDOC ---
History of Present Illness - General Chief Complaint: Chest Pain Stated Complaint: CHEST PAIN Time Seen by Provider: 03/01/18 23:18 - History of Present Illness Initial Comments: 03/01/18 23:52 62 yo M with h/o HTN, HLD, afib on Coumadin, Ao stenosis, AR stent placement x 14, CHF, SVT, COPD, GERD who p/w CP. Patient reports acute onset of pleuritic, non radiating, retrosternal chest pain beginning this afternoon (1200) at , with no identifiable triggers. Patient endorses nitroglycerin sublingual spray with minimal improvement. Pain different from previous AR related pain. + Slight cough, non productive. Denies home O2 use. + Home duoneb use TID. Denies SOB. Denies recent surgery, trauma or immobilization. No h/o PE/DVT. Patient denies Palpitations, orthopnea, PND, leg swelling/leg pain, N/V, F,C, SOB, urinary complaints, abdominal pain, diarrhea, constipation, hematuria, BPR , lightheadedness, weakness, sensory changes. PMHx: as noted above ROS: as noted SHx: Distant tobacco use. Denies IVDA, Etoh. 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 Analysis: Keyur PMD: Bari Nolan Past History - Past Medical History Allergies/Adverse Reactions: Allergies Allergy/AdvReac Type Severity Reaction Status Date / Time levofloxacin [From Levaquin] Allergy Intermediate Swelling Verified 06/24/17 05: 12 Home Medications: Ambulatory Orders Albuterol Sulfate [Proair Respiclick] 90 mcg IH PRN 08/22/16 Aspirin [ASA -] 81 mg PO ACDIN 08/22/16 Diltiazem HCl [Diltiazem 24Hr ER] 120 mg PO DAILY 08/22/16 Fenofibric Acid [Fibricor] 105 mg PO DAILY 08/22/16 Isosorbide Mononitrate [Isosorbide Mononitrate ER] 120 mg PO DAILY 08/22/16 Linaclotide [Linzess] 290 mcg PO BID 08/22/16 Lisinopril 10 mg PO HS 08/22/16 Metoclopramide HCl [Reglan] 10 mg PO PRN 08/22/16 Metoprolol Succinate [Toprol Xl] 100 mg PO DAILY 08/22/16 Nitroglycerin [place] [Nitrolingual [place] -] 1 spray TL PRN PRN 08/22/16 Oxycodone HCl 30 mg PO HS PRN 08/22/16 Pravastatin Sodium [Pravachol -] 80 mg PO HS 08/22/16 Ranolazine [Ranexa] 1,000 mg PO BID 08/22/16 Tamsulosin HCl [Flomax] 0.4 mg PO ACDIN 08/22/16 Beclomethasone Dipropionate [Qvar] 2 puff IH BID 01/16/17 Amiodarone HCl [Cordarone -] 200 mg PO DAILY 03/27/17 Hyoscyamine Sulfate 0.125 mg PO ASDIR PRN 03/27/17 Omeprazole 20 mg PO DAILY 03/27/17 Sertraline HCl 50 mg PO DAILY 03/27/17 Albuterol 2.5/Ipratropium 0.5 [Duoneb -] 1 amp NEB RQID amp 06/28/17 Furosemide [Lasix -] 60 mg PO DAILY 07/14/17 Prasugrel HCl [Effient] 5 mg PO DAILY 07/14/17 Ranitidine HCl [Zantac] 150 mg PO DAILY 07/14/17 Sucralfate [Carafate] 1 gm PO DAILY 07/14/17 Tiotropium Br/Olodaterol HCl [Stiolto Respimat Inhal [place]] 2.5 gm IH DAILY Warfarin Na [Coumadin -] 3 mg PO DAILY@1800 07/14/17 Albuterol 2.5/Ipratropium 0.5 [Duoneb -] 1 amp NEB RQID amp 07/21/17 Amiodarone HCl [Cordarone -] 100 mg PO DAILY tablet 07/21/17 Atorvastatin Ca [Lipitor] 40 mg PO HS tablet 07/21/17 Diltiazem Cd [Cardizem Cd -] 120 mg PO DAILY cap.cd.24h 07/21/17 Fenofibric Acid [Trilipix -] 135 mg PO DAILY cap 07/21/17 Furosemide [Lasix -] 40 mg PO BID@0600,1400 tablet 07/21/17 Isosorbide Mononitrate [Imdur -] 120 mg PO DAILY tab.sr.24h 07/21/17 Metoprolol Succinate [Toprol XL -] 100 mg PO DAILY tab.sr.24h 07/21/17 Potassium Chloride [K-Dur -] 20 meq PO BID tablet.er 07/21/17 Prasugrel Hydrochloride [Effient -] 5 mg PO DAILY tab 07/21/17 Ranitidine [Zantac -] 150 mg PO DAILY tablet 07/21/17 Ranolazine [Ranexa -] 1,000 mg PO BID tab 07/21/17 Sertraline HCl [Zoloft -] 50 mg PO DAILY tablet 07/21/17 Sucralfate [Carafate -] 1 gm PO QID tablet 07/21/17 Tamsulosin HCl [Flomax -] 0.4 mg PO DAILY@0830 cap.er.24h 07/21/17 Warfarin Na [Coumadin -] 5 mg PO DAILY@1800 tablet 07/21/17 oxyCODONE HCL [Roxicodone -] 10 mg PO Q6H PRN tablet MDD 4 07/21/17 oxyCODONE HCL [Roxicodone -] 30 mg PO HS PRN tablet MDD 1 07/21/17 Anemia: No Asthma: No Cancer: No Cardiac Disorders: Yes (A FIB, AR) CVA: No COPD: Yes CHF: Yes Dementia: No Diabetes: No GI Disorders: Yes (ACID REFLUX) Disorders: No HTN: Yes Hypercholesterolemia: Yes Liver Disease: No Seizures: No Thyroid Disease: No - Surgical History Abdominal Surgery: No Appendectomy: No Cardiac Surgery: Yes (13 stent placements & CARDIAC ABLIATION 01/2014) Cholecystectomy: No Lung Surgery: No Neurologic Surgery: No Orthopedic Surgery: No - Immunization History Immunization Up to Date: Yes - Suicide/Smoking/Psychosocial Hx Smoking Status: No Smoking History: Former smoker Have you smoked in the past 12 months: No Number of Cigarettes Smoked Daily: 0 If you are a former smoker, when did you quit?: 1997 Information on smoking cessation initiated: No Hx Alcohol Use: No Drug/Substance Use Hx: No Substance Use Type: None Hx Substance Use Treatment: No Review of Systems - Review of Systems Comments:: 03/01/18 23:52 GENERAL/CONSTITUTIONAL: No fever or chills. No weakness. HEAD, EYES, EARS, NOSE AND THROAT: No change in vision. No ear pain or discharge. No sore throat. CARDIOVASCULAR: + chest pain. No SOB. RESPIRATORY: No wheezing, or hemoptysis. GASTROINTESTINAL: No nausea, vomiting, diarrhea or constipation. GENITOURINARY: No dysuria, frequency, or change in urination. MUSCULOSKELETAL: + Lower back pain. No joint or muscle swelling or pain. No neck pain. SKIN: No rash NEUROLOGIC: No headache, vertigo, loss of consciousness, or change in strength/ sensation. ENDOCRINE: No increased thirst. No abnormal weight change HEMATOLOGIC/LYMPHATIC: No anemia, easy bleeding, or history of blood clots. ALLERGIC/IMMUNOLOGIC: No hives or skin allergy. *Physical Exam - Vital Signs Last Vital Signs Temp Pulse Resp BP Pulse Ox 101.3 F H 99 H 20 133/66 96 03/01/18 21:59 03/01/18 21:59 03/01/18 21:59 03/01/18 21:59 03/01/18 21:59 - Physical Exam Comments: 03/01/18 23:52 GENERAL: Awake, alert, and fully oriented, in no acute distress HEAD: No signs of trauma, normocephalic, atraumatic EYES: PERRLA, EOMI, sclera anicteric, conjunctiva clear ENT: Auricles normal inspection, hearing grossly normal, nares patent, oropharynx clear without exudates. Moist mucosa NECK: Normal ROM, supple, no lymphadenopathy, JVD, or masses LUNGS: No distress, speaks full sentences, clear to auscultation bilaterally HEART: Regular rate and rhythm, normal S1 and S2, no murmurs, rubs or gallops, peripheral pulses normal and equal bilaterally. ABDOMEN: Soft, nontender, normoactive bowel sounds. No guarding, no rebound. No masses EXTREMITIES : Normal inspection, Normal range of motion, no edema. No clubbing or cyanosis. NEUROLOGICAL: Cranial nerves II through XII grossly intact. Normal speech, normal gait, no focal sensorimotor deficits SKIN: Warm, Dry, normal turgor, no rashes or lesions noted Moderate Sedation - Procedure Monitoring Vital Signs: Procedure Monitoring Vital Signs Temperature 101.3 F H 03/01/18 21:59 Pulse Rate 99 H 03/01/18 21:59 Respiratory Rate 20 03/01/18 21:59 Blood Pressure 133/66 03/01/18 21:59 O2 Sat by Pulse Oximetry (%) 96 03/01/18 21:59 ED Treatment Course - LABORATORY CBC & Chemistry Diagram: 03/01/18 23:20 03/01/18 23:20 - ADDITIONAL ORDERS Additional order review: Laboratory Results 03/01/18 23:20 PT with INR 26.90 H INR 2.26 H 03/01/18 23:20 RBC 4.13 MCV 83.5 MCHC 35.2 RDW 13.6 MPV 7.5 Neutrophils % 87.0 H D Lymphocytes % 5.2 L D Monocytes % 7.1 Eosinophils % 0.5 D Basophils % 0.2 - RADIOLOGY Radiology Studies Ordered: Category Date Time Status CXRPORT [CHEST X-RAY PORTABLE*] [RAD] Stat Radiology 03/01/18 23:19 Taken Medical Decision Making - Medical Decision Making 03/02/18 00:13 62 yo M with h/o HTN, HLD, afib on Coumadin, Ao stenosis, AR stent placement x 14, CHF, SVT, COPD, GERD who p/w CP. Oral temp 101.3. Physical exam unremarkable. ACS/AR r/o. R/o PNA. PERC +, low risk PE Weils criteria. Will consider viral URI, Influenza, COPD exacerbation, pleural effusion, pericardial effusion. ED Course: CBC: Unremarkable WBC: 12.0 CMP: Unremarkable Trop: Neg 03/02/18 00:28 Preliminary CXR: Unremarkable EKG: HR 96, AV block 1st degree SC interval 238, Left anterior fascicular BBB, Absent acute AMARIS/STD. No acute TWI. Unchanged from 07/17/2017. 03/02/18 02:09 Flu: Neg Pain resolved Stable for d/c with return precautions. Advised to f/u with PMD. *DC/Admit/Observation/Transfer Diagnosis at time of Disposition: Pleuritic chest pain - Discharge Dispostion Disposition: HOME Condition at time of disposition: Stable Decision to Admit order: No - Referrals Referrals: Bari Nolan MD [Primary Care Provider] - - Patient Instructions Printed Discharge Instructions: DI for Atypical Chest Pain Additional Instructions: Please return to the emergency department with any new or worsening symptoms or concerns. Please follow up with your primary care physician within 72 hours. - Post Discharge Activity - Attestations Physician Attestion: 03/02/18 02:11 I attest to the information provided in this note.
[2018-03-02 00:07] LABS: BLOOD UREA NITROGEN 25 mg/dL (7-18); CHLORIDE 101 mmol/L (98-107); CO2 25 mmol/L (21-32); CREATININE 1.4 mg/dL (0.55-1.3); GLUCOSE,RANDOM 103 mg/dL (74-106); POTASSIUM 3.9 mmol/L (3.5-5.1); SODIUM 135 mmol/L (136-145)
[2018-03-02 00:08] LABS: ALBUMIN 3.7 g/dl (3.4-5.0); ALK PHOS 41 U/L (45-117); ANION GAP 10 MMOL/L (8-16); BILIRUBIN,TOTAL 0.6 mg/dL (0.2-1); CALCIUM 8.7 mg/dL (8.5-10.1); LIPASE 52 U/L (73-393); SGOT/AST 15 U/L (15-37); SGPT/ALT 21 U/L (13-61); TOT PROT 7.2 g/dl (6.4-8.2)
[2018-03-02] MEDS ORDERED: MAG HYDROX/AL HYDROX/SIMETH 30 ML UNIT-DOSE CUP PO ONE (01:13)
[2018-03-02] MEDS ORDERED: RANITIDINE HCL 150 MG TABLET (FP) PO ONE (01:13)
[2018-03-02] MEDS ORDERED: RANITIDINE HCL 150 MG TABLET (FP) ONE (01:21)
[2018-03-02] MEDS ORDERED: MAG HYDROX/AL HYDROX/SIMETH 30 ML UNIT-DOSE CUP ONE (01:21)
--- NOTE | 2018-03-02 02:07 | PDOC ---
Attending Attestation - Resident Resident Name: Fransisco Sánchez - ED Attending Attestation I have performed the following: I have examined & evaluated the patient, The case was reviewed & discussed with the resident, I agree w/resident's findings & plan, Exceptions are as noted - HPI HPI: 03/02/18 02:05 62yoM w/ extensive cardaic history presnets w/ chest pain that is distinctly different from all other [place]/cardaic pain he has had, not responding to NTG, does respond to ibuprofen. Pt w/ fever to 101. - Physicial Exam PE: 03/02/18 02:06 NAD well apeparing RRR CTABL soft NTNDA&O x 3. 03/02/18 02:06 EKG Nonsichemic - Medical Decision Making 03/02/18 02:06 62yoM w/ atyopical chest pain and fever, never had anything like this relating to cardaic pain. Feels better after tylenol. - ekg nonischemic - labs w/ tn negative - flu swab negative - pt is requesting DC, pt does not feel that this is cardaic pain. - DC w/ close PMD f/u.
[2018-03-02 02:29] VITALS: BP 95/62; PULSE 102; TEMP 102.7
[2018-03-02] MEDS ORDERED: ACETAMINOPHEN 325 MG TABLET (FP) PO ONE (02:31)
--- NOTE | 2018-03-02 16:17 | EKG ---
Test Reason : Blood Pressure : / mmHG Vent. Rate : 096 BPM Atrial Rate : 096 BPM P-R Int : 238 ms QRS Dur : 160 ms QT Int : 384 ms P-R-T Axes : 088 -88 046 degrees QTc Int : 485 ms SINUS RHYTHM WITH 1ST DEGREE A-V BLOCK RIGHT BUNDLE BRANCH BLOCK LEFT ANTERIOR FASCICULAR BLOCK BIFASCICULAR BLOCK LATERAL INFARCT (CITED ON OR BEFORE 01-MAR-2018) CANNOT RULE OUT INFERIOR INFARCT (CITED ON OR BEFORE 01-MAR-2018) ABNORMAL ECG WHEN COMPARED WITH ECG OF 17-JUL-2017 11:00, VENT. RATE HAS INCREASED BY 43 BPM Confirmed by JADA ROMERO MD ([id number]) on 03/02/2018 4:17:33 PM Referred By: Confirmed By:JADA ROMERO MD
== END 2018-03-02 02:35 | disposition home or self-care (01) ==
LOC: JER 21:51
DX: R07.89 Other chest pain (principal); I10 Essential (primary) hypertension; E78.5 Hyperlipidemia, unspecified; I48.91 Unspecified atrial fibrillation; Z95.5 Presence of coronary angioplasty implant and graft; I50.9 Heart failure, unspecified; I47.1 Supraventricular tachycardia; J44.9 Chronic obstructive pulmonary disease, unspecified; K21.9 Gastro-esophageal reflux disease without esophagitis; Z87.891 Personal history of nicotine dependence
CPT/HCPCS: 36415; 71045-TC-FY; 80053; 82550; 83690; 84484; 85025; 85610; 87804; 93005; 93010; 99283-25

== ENCOUNTER 2018-08-31 23:39 | Inpatient (IN) | payer OTHER ==
--- NOTE | 2018-09-01 00:07 | PDOC ---
History of Present Illness - General Chief Complaint: Shortness of Breath Stated Complaint: CHEST PAIN - History of Present Illness Initial Comments: The pt is a 63F w/ an extensive history of HTN, COPD, HLD who presents for evaluation of CP and SOB since 1700 today (~6 hours). The pain is intermittent, non-radiating, exertional, non-positional, sharp L sided chest pain. It is associated SOB and was placed on O2 by EMS w/ some improvement in dyspnea. Pt is not on O2 at home. Denies recent fever/chills, cough, dysuria, hematuria, diarrhea. Recent Cath at [facility] w/o stent placement 09/01/18 00:14 07/15/17 ECHO w/ LVEF 50-55%, MVR, , AVR 09/01/18 00:20 Past History - Past Medical History Allergies/Adverse Reactions: Allergies Allergy/AdvReac Type Severity Reaction Status Date / Time levofloxacin [From Levaquin] Allergy Intermediate Swelling Verified 08/31/18 23: 56 Home Medications: Ambulatory Orders Albuterol Sulfate [Proair Respiclick] 90 mcg IH PRN 08/22/16 Aspirin [ASA -] 81 mg PO ACDIN 08/22/16 Diltiazem HCl [Diltiazem 24Hr ER] 120 mg PO DAILY 08/22/16 Linaclotide [Linzess] 145 mcg PO BID 08/22/16 Lisinopril 5 mg PO HS 08/22/16 Nitroglycerin [place] [Nitrolingual [place] -] 1 spray TL PRN PRN 08/22/16 Ranolazine [Ranexa] 1,000 mg PO BID 08/22/16 Beclomethasone Dipropionate [Qvar] 2 puff IH BID 01/16/17 Hyoscyamine Sulfate 0.125 mg PO ASDIR PRN 03/27/17 Omeprazole 40 mg PO DAILY 03/27/17 Sucralfate [Carafate] 1 gm PO BID 07/14/17 Tiotropium Br/Olodaterol HCl [Stiolto Respimat Inhal [place]] 2.5 gm IH DAILY Amiodarone HCl [Cordarone -] 100 mg PO DAILY tablet 07/21/17 Prasugrel Hydrochloride [Effient -] 5 mg PO DAILY tab 07/21/17 Ranitidine [Zantac -] 150 mg PO DAILY tablet 07/21/17 Sertraline HCl [Zoloft -] 50 mg PO DAILY tablet 07/21/17 Sucralfate [Carafate -] 1 gm PO QID tablet 07/21/17 Tamsulosin HCl [Flomax -] 0.4 mg PO DAILY@0830 cap.er.24h 07/21/17 oxyCODONE HCL [Roxicodone -] 30 mg PO HS PRN tablet MDD 1 07/21/17 Albuterol 0.083% Nebulizer Pauline [Ventolin 0.083% Nebulizer Soln -] 1 amp NEB PRN 09/01/18 Atorvastatin Ca [Lipitor] 40 mg PO HS 09/01/18 Ergocalciferol (Vitamin D2) [Vitamin D2] 50,000 unit PO DAILY 09/01/18 Fenofibric Acid [Trilipix -] 105 mg PO DAILY 09/01/18 Isosorbide Mononitrate [Imdur -] 60 mg PO DAILY 09/01/18 Isosorbide Mononitrate [Isosorbide Mononitrate ER] 60 mg PO DAILY 09/01/18 Metoclopramide HCl 5 mg PO DAILY 09/01/18 Ranolazine [Ranexa -] 1,000 mg PO BID 09/01/18 Warfarin Na [Coumadin -] 3 mg PO DAILY@1800 09/01/18 Anemia: No Asthma: No Cancer: No Cardiac Disorders: Yes (A FIB, [place]) CVA: No COPD: Yes CHF: Yes Dementia: No Diabetes: No GI Disorders: Yes (ACID REFLUX) Disorders: No HTN: Yes Hypercholesterolemia: Yes Liver Disease: No Seizures: No Thyroid Disease: No - Surgical History Abdominal Surgery: No Appendectomy: No Cardiac Surgery: Yes (13 stent placements & CARDIAC ABLIATION 01/2014) Cholecystectomy: No Lung Surgery: No Neurologic Surgery: No Orthopedic Surgery: No - Immunization History Immunization Up to Date: Yes - Suicide/Smoking/Psychosocial Hx Smoking Status: No Smoking History: Former smoker Have you smoked in the past 12 months: No Number of Cigarettes Smoked Daily: 0 If you are a former smoker, when did you quit?: 1997 Information on smoking cessation initiated: No Hx Alcohol Use: No Drug/Substance Use Hx: No Substance Use Type: None Hx Substance Use Treatment: No Review of Systems - Review of Systems Able to Perform ROS?: Yes Comments:: GENERAL/CONSTITUTIONAL: No fever or chills. No weakness._ HEAD, EYES, EARS, NOSE AND THROAT: No change in vision. No ear pain or discharge. No sore throat._ CARDIOVASCULAR: No chest pain or shortness of breath_ RESPIRATORY: Denies cough, hemoptysis_ GASTROINTESTINAL: No nausea, vomiting, diarrhea or constipation._ GENITOURINARY: No dysuria, frequency, or change in urination._ MUSCULOSKELETAL: No joint or muscle swelling or pain. No neck or back pain._ SKIN: No rash_ NEUROLOGIC: No headache, vertigo, loss of consciousness, or change in strength/ sensation._ ENDOCRINE: No increased thirst. No abnormal weight change_ HEMATOLOGIC/LYMPHATIC: No anemia, easy bleeding, or history of blood clots._ ALLERGIC/IMMUNOLOGIC: No hives or skin allergy._ 09/01/18 00:07 Is the patient limited Lebanese proficient: No *Physical Exam - Vital Signs Last Vital Signs Temp Pulse Resp BP Pulse Ox 98.1 F 106 H 30 H 134/84 95 08/31/18 23:39 08/31/18 23:39 08/31/18 23:39 08/31/18 23:39 08/31/18 23:39 - Physical Exam Comments: GENERAL: Awake, alert, and oriented to person/place/time, in no acute distress HEAD: No signs of trauma, normocephalic, atraumatic EYES: PERRLA, EOMI, sclera anicteric, conjunctiva clear ENT: Hearing grossly normal, nares patent, oropharynx clear without exudates. No uvular deviation. Moist mucosa LUNGS: Speaks in full sentences, clear to auscultation bilaterally_ HEART: Tachycardic rate and regular rhythm, normal S1 and S2, no murmurs appreciated, peripheral pulses normal and equal bilaterally ABDOMEN: Soft, protuberant, NTTP, normoactive bowel sounds. No guarding, no rebound EXTREMITIES: Normal inspection, Normal range of motion, no edema. No clubbing or cyanosis NEUROLOGICAL: Cranial nerves II through XII grossly intact. Normal speech, no focal sensorimotor deficits SKIN: Warm, Dry 09/01/18 01:17 ED Treatment Course - LABORATORY CBC & Chemistry Diagram: 09/02/18 06:00 09/02/18 06:00 - RADIOLOGY Radiology Studies Ordered: Category Date Time Status CHEST X-RAY PORTABLE* [RAD] Stat Radiology 09/01/18 00:06 Ordered Medical Decision Making - Medical Decision Making The pt is a 63M w/ an extensive cardiopulmonary disease who presents for evaluation of 7 hours of typical chest pain w/ associated SOB CMP, CBC, Trop I, BNP ECG CXR ASA PO Pt hypoxic to 93 on 4L NC -Duo-neb x3 -Prednisone 60mg PO once Trop I 0.06 ECG w/ sinus tach; HR 108; RBBB; L ant fascicular block; no evidence of ST elevation or depression; QTc 509 09/01/18 00:30 CXR w/ b/l pulmonary vascular congestion Mild anemia, near baseline No Leukocytosis 09/01/18 01:00 Pt signed out to [facility] Admitting 09/01/18 01:53 *DC/Admit/Observation/Transfer Diagnosis at time of Disposition: Elevated troponin COPD (chronic obstructive pulmonary disease) Qualifiers: COPD type: unspecified COPD Qualified Code(s): J44.9 - Chronic obstructive pulmonary disease, unspecified Chest pain Qualifiers: Chest pain type: unspecified Qualified Code(s): R07.9 - Chest pain, unspecified - Discharge Dispostion Condition at time of disposition: Guarded Decision to Admit order: Yes - Referrals - Patient Instructions - Post Discharge Activity
[2018-09-01] MEDS ORDERED: ASPIRIN 81 MG CHEWABLE TABLETS PO ONE (00:09)
[2018-09-01] MEDS ORDERED: ASPIRIN 81 MG CHEWABLE TABLETS ONE (00:30)
[2018-09-01] MEDS ORDERED: predniSONE 20 MG TABLET (UD) PO ONE (00:35)
--- NOTE | 2018-09-01 00:45 | PDOC ---
Documentation entered by Jordan Milligan SCRIBE, acting as scribe for Braeden Pierre MD. Braeden Pierre MD: This documentation has been prepared by the Srini parry Xhesika, SCRIBE, under my direction and personally reviewed by me in its entirety. I confirm that the documentation accurately reflects all work, treatment, procedures, and medical decision making performed by me. Attending Attestation - Resident Resident Name: Franky Patel - ED Attending Attestation I have performed the following: I have examined & evaluated the patient, The case was reviewed & discussed with the resident, I agree w/resident's findings & plan, Exceptions are as noted - HPI HPI: 09/01/18 00:30 62-year-old male with history of hypertension, hyperlipidemia, atrial fibrillation on Coumadin, aortic stenosis, coronary disease status post multiple stent placements, congestive heart failure, COPD, GERD, SVT presents with worsening chest pain and shortness of breath today. Patient reports left sided chest pain worsened exertion. Notices some chest tightness as well as shortness of breath. Patient was unsure this is related to COPD orders cardiac disease. He had taken some albuterol with some mild relief. Denies any fevers or chills. Denies cough. However, patient was concerned for symptoms were came to the ER. Patient had taken a baby aspirin prior to arrival. Allergies: Levaquin Social history: Distant tobacco use PCP: Bari Mejia Network Security Architect: Dr. Baer - Physicial Exam PE: 09/01/18 00:40 GENERAL: Awake, alert, and fully oriented, in no acute distress HEAD: No signs of trauma EYES: EOMI, sclera anicteric, conjunctiva clear ENT: Auricles normal inspection, hearing grossly normal, nares patent, NECK: Normal ROM, supple, LUNGS: Breath sounds equal. Tight breath sounds and occasional scant expiratory wheezing bilaterally. HEART: Regular rate and rhythm, normal S1 and S2, no murmurs, rubs or gallops ABDOMEN: Soft, nontender, No guarding, no rebound. No masses EXTREMITIES: Normal range of motion, no edema. No clubbing or cyanosis. No cords, erythema, or tenderness NEUROLOGICAL: Cranial nerves II through XII grossly intact. Normal speech SKIN: Warm, Dry, normal turgor, no rashes or lesions noted. - Medical Decision Making 09/01/18 00:44 A portion of this note was documented by scribe services under my direction. I have reviewed the details of the note, within reason, and agree with the documentation with the following case summary and management plan written by me. Patient treated in the ED. Nursing notes are reviewed and incorporated into the medical decision-making. Vital signs reviewed. Peripheral IV access obtained by the nurse, laboratory studies are drawn and sent, reviewed and interpreted by myself. Vital Signs Temp Pulse Resp BP Pulse Ox 98.1 F 106 H 30 H 134/84 95 08/31/18 23:39 08/31/18 23:39 08/31/18 23:39 08/31/18 23:39 08/31/18 23:39 Patient's differential diagnosis includes acute coronary syndrome, congestive heart failure versus COPD. We will initiate duonabs and give prednisone and reassess. Chest x-ray. Send labs including troponin and BNP. Give aspirin and admit the patient to the hospital. 09/01/18 01:20 Chest xray reviewed by me, pending official radiology read. +cardiomegaly with increased vascular congestion. CBC, BMP 09/01/18 00:45 09/01/18 01:24 CMP Sodium 137 mmol/L (136-145) 09/01/18 00:45 Potassium 4.3 mmol/L (3.5-5.1) 09/01/18 00:45 Chloride 102 mmol/L (98-107) 09/01/18 00:45 Carbon Dioxide 29 mmol/L (21-32) 09/01/18 00:45 Anion Gap 6 MMOL/L (8-16) L 09/01/18 00:45 BUN 14.9 mg/dL (7-18) 09/01/18 00:45 Creatinine 1.1 mg/dL (0.55-1.3) 09/01/18 00:45 Est GFR (CKD-EPI)AfAm 81.22 09/01/18 00:45 Est GFR (CKD-EPI)NonAf 70.07 09/01/18 00:45 Random Glucose 114 mg/dL (74-106) H 09/01/18 00:45 Calcium 8.7 mg/dL (8.5-10.1) 09/01/18 00:45 Total Bilirubin 0.4 mg/dL (0.2-1) 09/01/18 00:45 AST 13 U/L (15-37) L 09/01/18 00:45 ALT 21 U/L (13-61) 09/01/18 00:45 Alkaline Phosphatase 36 U/L (45-117) L 09/01/18 00:45 Troponin I 0.06 ng/ml (0.00-0.05) H 09/01/18 00:45 Total Protein 6.9 g/dl (6.4-8.2) 09/01/18 00:45 Albumin 3.9 g/dl (3.4-5.0) 09/01/18 00:45
[2018-09-01 00:51] LABS: BASO % 0.4 % (0-2.0); EOS % 1.4 % (0-4.5); HEMATOCRIT 34.4 % (35.4-49); HEMOGLOBIN 11.4 GM/dL (11.7-16.9); MCH 27.5 pg (25.7-33.7); MCHC 33.1 g/dl (32.0-35.9); MEAN CELL VOLUME 82.9 fl (80-96); MEAN PLT VOLUME 7.3 fl (7.5-11.1); MONO % 7.9 % (3.8-10.2); NEUT % 78.3 % (42.8-82.8); PLATELET COUNT 246 K/MM3 (134-434); RBC 4.14 M/mm3 (4.00-5.60); RDW 14.1 % (11.9-15.9); WHITE BLOOD COUNT 9.1 K/mm3 (4.0-10.0)
[2018-09-01] MEDS ORDERED: ALBUTEROL SO4 2.5/IPRATROPIUM 0.5 INH SOL 3 ML VIAL.NEB. NEB ONE (00:51)
[2018-09-01] MEDS ORDERED: predniSONE 20 MG TABLET (UD) ONE (00:51)
[2018-09-01] MEDS: ALBUTEROL SO4 2.5/IPRATROPIUM 0.5 INH SOL 3 ML VIAL.NEB. NEB SCH ×2 (01:00→01:15)
[2018-09-01 01:03] LABS: INR 2.48 (0.83-1.09); PROTHROMBIN TIME (PATIENT) 29.5 SEC (9.7-13.0)
[2018-09-01 01:22] LABS: ALBUMIN 3.9 g/dl (3.4-5.0); BILIRUBIN,TOTAL 0.4 mg/dL (0.2-1); BLOOD UREA NITROGEN 14.9 mg/dL (7-18); CALCIUM 8.7 mg/dL (8.5-10.1); CREATININE 1.1 mg/dL (0.55-1.3); POTASSIUM 4.3 mmol/L (3.5-5.1); TOT PROT 6.9 g/dl (6.4-8.2)
--- NOTE | 2018-09-01 02:34 | HP ---
CHIEF COMPLAINT: Chest with SOB PCP: Dr. Boland HISTORY OF PRESENT ILLNESS: 63 year old male with PMHX A-fib (on Coumadin), aortic stenosis, CAD(post multiple stent placement), COPD, CHF, GERD,BPH, Depression, HTN/HLD, and SVT present to the ED for Chest pain and SOB (pain is sharp/ stabbing like on left side,intermittent, non-radiating associated with sob and worse with exertion. Patient has had recent Cardiac Cath at [facility] without stent placement. Patient did take ASA prior to coming to ED. Patient denies fever, chills at this time. ER course was notable for: (1) CP with SOB (2) EKG, CXR (3)hypoxia , duoneb, predisone 60 mg po x1 Recent Travel: In February went to [place] for 1month PAST MEDICAL HISTORY: Afib, COPD, CHF, GERD, HTN, HLD, BPH, Depression PAST SURGICAL HISTORY: Multiple stent placed, ( last stent in November, and recent cardiac cath at [facility]), Cardiac ablation in 01/2014 Social History: Smoking: NO, former smoker, quit in 1997 Alcohol:NO Drugs: NO Family History: sister has breast, colon cancer, leukemia Allergies: levofloxacin [From Levaquin] Allergy (Intermediate, Verified 23:56) Swelling HOME MEDICATIONS: Home Medications Medication Instructions Recorded Albuterol Sulfate [Proair 90 mcg IH PRN 08/22/16 Respiclick] Aspirin [ASA -] 81 mg PO ACDIN 08/22/16 Diltiazem HCl [Diltiazem 24Hr ER] 120 mg PO DAILY 08/22/16 Linaclotide [Linzess] 145 mcg PO BID 08/22/16 Lisinopril 10 mg PO HS 08/22/16 Nitroglycerin [place] [Nitrolingual 1 spray TL PRN PRN 08/22/16 [place] -] Ranolazine [Ranexa] 1,000 mg PO BID 08/22/16 Beclomethasone Dipropionate [Qvar] 2 puff IH BID 01/16/17 Hyoscyamine Sulfate 0.125 mg PO ASDIR PRN 03/27/17 Omeprazole 40 mg PO DAILY 03/27/17 Sucralfate [Carafate] 1 gm PO BID 07/14/17 Tiotropium Br/Olodaterol HCl 2.5 gm IH DAILY 07/14/17 [Stiolto Respimat Inhal [place]] Amiodarone HCl [Cordarone -] 100 mg PO DAILY tablet 07/21/17 Prasugrel Hydrochloride [Effient -] 5 mg PO DAILY tab 07/21/17 Ranitidine [Zantac -] 150 mg PO DAILY tablet 07/21/17 Sertraline HCl [Zoloft -] 50 mg PO DAILY tablet 07/21/17 Sucralfate [Carafate -] 1 gm PO QID tablet 07/21/17 Tamsulosin HCl [Flomax -] 0.4 mg PO DAILY@0830 cap.er.24h 07/21/17 oxyCODONE HCL [Roxicodone -] 30 mg PO HS PRN tablet MDD 1 07/21/17 Albuterol 0.083% Nebulizer Pauline 1 amp NEB PRN 09/01/18 [Ventolin 0.083% Nebulizer Soln -] Atorvastatin Ca [Lipitor] 40 mg PO HS 09/01/18 Ergocalciferol (Vitamin D2) 50,000 unit PO DAILY 09/01/18 [Vitamin D2] Fenofibric Acid [Trilipix -] 105 mg PO DAILY 09/01/18 Isosorbide Mononitrate [Imdur -] 60 mg PO DAILY 09/01/18 Isosorbide Mononitrate [Isosorbide 60 mg PO DAILY 09/01/18 Mononitrate ER] Metoclopramide HCl 5 mg PO DAILY 09/01/18 Ranolazine [Ranexa -] 1,000 mg PO BID 09/01/18 Warfarin Na [Coumadin -] 1 mg PO DAILY@1800 09/01/18 REVIEW OF SYSTEMS GENERAL: No fever or chills. No weakness. HEENT: No change in vision. No ear pain or discharge. No sore throat CARDIO: No chest pain or shortness of breath RESP: Denies cough, hemoptysis GI: No nausea, vomiting, diarrhea or constipation : No dysuria, frequency, or change in urination MUSCULOSKELETAL: No joint or muscle swelling or pain. No neck or back pain SKIN: No rash NEUROLOGIC: No headache, vertigo, loss of consciousness PHYSICAL EXAMINATION Vital Signs - 24 hr 08/31/18 23:39 Temperature 98.1 F Pulse Rate 106 H Respiratory 30 H Rate Blood Pressure 134/84 O2 Sat by Pulse 95 Oximetry (%) GENERAL: Awake, alert, NAD HEENT: NC/AT, EOMI, PERRLA NECK: Normal ROM, supple, no JVD LUNGS: Breath sounds equal. + expiratory wheezing bilaterally. HEART: Regular rate and rhythm, normal S1 and S2, no murmurs, rubs or gallops ABDOMEN: Soft, nontender, No guarding, no rebound. No masses EXTREMITIES: Normal range of motion, no edema. No clubbing or cyanosis. NEUROLOGICAL: Cranial nerves II through XII grossly intact. Normal speech SKIN: Warm, Dry, no rashes or lesions noted. Laboratory Results - last 24 hr 09/01/18 09/01/18 09/01/18 00:45 00:45 00:45 WBC 9.1 RBC 4.14 Hgb 11.4 L Hct 34.4 L MCV 82.9 MCH 27.5 MCHC 33.1 RDW 14.1 Plt Count 246 MPV 7.3 L Absolute Neuts (auto) 7.1 Neutrophils % 78.3 Lymphocytes % 12.0 D Monocytes % 7.9 Eosinophils % 1.4 D Basophils % 0.4 Nucleated RBC % 0 PT with INR 29.50 H INR 2.48 H PTT (Actin FS) 49.0 H Sodium 137 Potassium 4.3 Chloride 102 Carbon Dioxide 29 Anion Gap 6 L BUN 14.9 Creatinine 1.1 Est GFR (CKD-EPI)AfAm 81.22 Est GFR (CKD-EPI)NonAf 70.07 Random Glucose 114 H Calcium 8.7 Total Bilirubin 0.4 AST 13 L ALT 21 Alkaline Phosphatase 36 L Troponin I B-Natriuretic Peptide Total Protein 6.9 Albumin 3.9 09/01/18 09/01/18 00:45 00:45 WBC RBC Hgb Hct MCV MCH MCHC RDW Plt Count MPV Absolute Neuts (auto) Neutrophils % Lymphocytes % Monocytes % Eosinophils % Basophils % Nucleated RBC % PT with INR INR PTT (Actin FS) Sodium Potassium Chloride Carbon Dioxide Anion Gap BUN Creatinine Est GFR (CKD-EPI)AfAm Est GFR (CKD-EPI)NonAf Random Glucose Calcium Total Bilirubin AST ALT Alkaline Phosphatase Troponin I 0.06 H B-Natriuretic Peptide 705.1 H Total Protein Albumin ASSESSMENT/PLAN: 63 year old male with PMHX A-fib (on Coumadin), aortic stenosis, CAD(post multiple stent placement), COPD, CHF, BPH, Depression, GERD, HTN/HLD, and SVT present to the ED for Chest pain and SOB (pain is sharp/ stabbing like on left side,intermittent, non-radiating associated with sob and worse with exertion. r/o ACS ECG w/ sinus tach; HR 108; RBBB; L ant fascicular block; no evidence of ST elevation or depression; QTc 509 ASA PO given in ED - Troponin : 0.06, repeat second COPD VS CHF CXR w/ b/l pulmonary vascular congestion - hypoxic to 93 on 4L NC -given Duo-neb x3 -given Prednisone 60mg PO once - continue with albuterol - A-fib - continue with Coumadin per INR - Continue with prasugrel - Continue with Amiodarone CAD, h/o [place] - Continue with ASA - Continue with Ranexa - Continue with IMdur HTN - Continue with lisinopril - Continue with Diltiazem HLD - Continue with Trilipix - Continue with Lipitor GERD - Continue with Metoclopramide - Continue with Sucralfate - Continue with Zantac BPH - Continue with flomax Depression - Continue with zoloft Problem List - Problem (1) Acute coronary syndrome Assessment/Plan: r/o ACS ECG w/ sinus tach; HR 108; RBBB; L ant fascicular block; no evidence of ST elevation or depression; QTc 509 ASA PO given in ED - Troponin : 0.06, repeat second Code(s): I24.9 - ACUTE ISCHEMIC HEART DISEASE, UNSPECIFIED (2) Acute exacerbation of COPD with asthma Assessment/Plan: COPD VS CHF CXR w/ b/l pulmonary vascular congestion - hypoxic to 93 on 4L NC -given Duo-neb x3 -given Prednisone 60mg PO once - continue with albuterol - Code(s): J44.1 - CHRONIC OBSTRUCTIVE PULMONARY DISEASE W (ACUTE) EXACERBATION; J45.901 - UNSPECIFIED ASTHMA WITH (ACUTE) EXACERBATION (3) Acute exacerbation of CHF (congestive heart failure) Assessment/Plan: COPD VS CHF CXR w/ b/l pulmonary vascular congestion - hypoxic to 93 on 4L NC -given Duo-neb x3 -given Prednisone 60mg PO once - continue with albuterol - Code(s): I50.9 - HEART FAILURE, UNSPECIFIED (4) Hypertension Assessment/Plan: HTN - Continue with lisinopril - Continue with Diltiazem - monitor bp/HR Code(s): I10 - ESSENTIAL (PRIMARY) HYPERTENSION (5) Atrial fibrillation Assessment/Plan: A-fib - continue with Coumadin per INR - Continue with prasugrel - Continue with Amiodarone - monitor HR Code(s): I48.91 - UNSPECIFIED ATRIAL FIBRILLATION (6) CAD (coronary artery disease) Assessment/Plan: CAD, h/o [place] - Continue with ASA - Continue with Ranexa - Continue with IMdur Code(s): I25.10 - ATHSCL HEART DISEASE OF [place] CORONARY ARTERY W/O ANG PCTRS (7) GERD (gastroesophageal reflux disease) Assessment/Plan: GERD - Continue with Metoclopramide - Continue with Sucralfate - Continue with Zantac Code(s): K21.9 - GASTRO-ESOPHAGEAL REFLUX DISEASE WITHOUT ESOPHAGITIS (8) BPH (benign prostatic hyperplasia) Assessment/Plan: BPH - Continue with flomax Code(s): N40.0 - BENIGN PROSTATIC HYPERPLASIA WITHOUT LOWER URINRY TRACT SYMP (9) Constipation Assessment/Plan: constipation - continue with linzess - if not BM for more than 3 days notify MD/STRIPPER LATEX Code(s): K59.00 - CONSTIPATION, UNSPECIFIED (10) Depression Assessment/Plan: Depression - Continue with zoloft Code(s): F32.9 - MAJOR DEPRESSIVE DISORDER, SINGLE EPISODE, UNSPECIFIED (11) Hyperlipidemia Assessment/Plan: HLD - Continue with Trilipix - Continue with Lipitor Code(s): E78.5 - HYPERLIPIDEMIA, UNSPECIFIED Visit type - Emergency Visit Emergency Visit: Yes ED Registration Date: 09/01/18 Care time: The patient presented to the Emergency Department on the above date and was hospitalized for further evaluation of their emergent condition. - New Patient This patient is new to me today: Yes Date on this admission: 09/01/18 - Critical Care Critical Care patient: No
[2018-09-01 03:37] VITALS: BMI 39.4
[2018-09-01] MEDS ORDERED: HYOSCYAMINE SULFATE 0.125 MG *ODT PO PRN (04:25)
[2018-09-01] MEDS ORDERED: ALBUTEROL SO4 0.083% IH SOL 2.5 MG/3 ML VIAL.NEB. NEB PRN (04:30)
[2018-09-01] MEDS ORDERED: ALBUTEROL SO4 8 GM HFA INHALER IH PRN (04:41)
[2018-09-01] MEDS ORDERED: FUROSEMIDE 40 MG/4 ML INJECTABLE VIAL ONE (05:14)
[2018-09-01] MEDS ORDERED: methylPREDNISolone NA SUCC 125 MG/2 ML VIAL ONE (05:20)
[2018-09-01] MEDS ORDERED: MAGNESIUM SULF 50% (8.12 MEQ/2 ML-1 GM VIAL) IVPB ONE (05:21)
[2018-09-01] MEDS ORDERED: MORPHINE SULFATE 2 MG/ML VIAL ONE (05:25)
[2018-09-01 05:38] LABS: ARTERIAL BLD GAS O2 SATURATION 75.4 % (95-98); ARTERIAL BLOOD GAS BASE EXCESS -4.6 meq/l (-2-2); ARTERIAL BLOOD GAS PO2 60.7 mmHg (80-105)
[2018-09-01 05:40] LABS: ALLENS TEST POSITIVE; ARTERIAL BLOOD GAS PCO2 80.2 mmHg (35-45)
[2018-09-01] MEDS: FUROSEMIDE 40 MG/4 ML INJECTABLE VIAL IVPUSH SCH ×2 (05:40→14:14)
[2018-09-01 05:42] LABS: ARTERIAL BLOOD GAS pH 7.14 (7.35-7.45)
[2018-09-01] MEDS ORDERED: AZITHROMYCIN IVPB 500 MG/250 ML BAG IVPB ONE (05:46)
--- NOTE | 2018-09-01 06:07 | RAPID ---
Physical Examination Vital Signs: Vital Signs Temperature 98.8 F 09/01/18 03:21 Pulse Rate 106 H 09/01/18 03:21 Respiratory Rate 17 09/01/18 03:21 Blood Pressure 139/74 09/01/18 03:21 O2 Sat by Pulse Oximetry (%) 95 09/01/18 03:21 Constitutional: Yes: Well Nourished, Anxious, Diaphoresis, Mild Distress Eyes: Yes: WNL HENT: Yes: Normocephalic Neck: Yes: WNL Cardiovascular: Yes: Regular Rate and Rhythm Respiratory: Yes: Wheezes, Other (using accesory muscles) Gastrointestinal: Yes: Soft, Abdomen, Obese Neurological: Yes: Alert, Oriented Labs: CBC, BMP 09/01/18 00:45 09/01/18 00:45 Rapid Response - Rapid Response Assessment: 63M admitted for ACS r/o. Rapid response for respiratory distress and desaturation to 80% on venturi mask Outcome: O2 saturation improved after duoneb treatment, solumedrol 40mg, 2mg magn sulfate , BiPAP Recommendations/Interventions: - cw BiPAP - fu repeat ABG ~0700
[2018-09-01] MEDS ORDERED: DEXTROSE 5%-WATER - 100 ML IVPB ONE (06:15)
[2018-09-01] MEDS ORDERED: cefTRIAXone SODIUM 1 GM VIAL ONE ×2 (06:15→09:07)
[2018-09-01] MEDS: CEFTRIAXONE 1 GM in DEXTROSE 5%-WATER - 50 ML IVPB SCH (06:37)
[2018-09-01 07:07] LABS: ARTERIAL BLOOD GAS PCO2 46.4 mmHg (35-45); ARTERIAL BLOOD GAS PO2 354 mmHg (80-105); ARTERIAL BLOOD GAS pH 7.34 (7.35-7.45)
[2018-09-01] MEDS ORDERED: KETOROLAC TROMETHAMINE 30 MG/1 ML VIAL IM ONE (07:11)
[2018-09-01 07:21] LABS: ALLENS TEST POSITIVE
[2018-09-01] MEDS: ALBUTEROL SO4 0.083% IH SOL 2.5 MG/3 ML VIAL.NEB. NEB PRN (08:01)
--- NOTE | 2018-09-01 08:04 | CON.CARD ---
Consult - History of Present Illness History of Present Illness: 63 year old male with PMHX A-fib (on Coumadin), aortic stenosis, CAD(post multiple stent placement), COPD, CHF, GERD,BPH, Depression, HTN/HLD, and SVT present to the ED for Chest pain and SOB (pain is sharp/ stabbing like on left side,intermittent, non-radiating associated with sob and worse with exertion. Patient has had recent Cardiac Cath at [facility] without stent placement. Patient did take ASA prior to coming to ED. Patient denies fever, chills at this time. - Past Medical History Cardio/Vascular: Yes: AFIB, Aortic Insufficiency, Aortic Stenosis, CAD, CHF ( chronic diastolic), HTN, Hyperlipdemia, [place], Other (SVT) Pulmonary: Yes: COPD, Sleep Apnea Gastrointestinal: Yes: GERD Psych: Yes: Anxiety, Depression Musculoskeletal: Yes: Chronic low back pain - Past Surgical History Past Surgical History: Yes: Stent (Multiple cardiac stents; pulmonary vein ablation Rx x 2 for AF/flutter) - Alcohol/Substance Use Hx Alcohol Use: No History of Substance Use: reports: None - Smoking History Smoking history: Former smoker Have you smoked in the past 12 months: No Aproximately how many cigarettes per day: 0 If you are a former smoker, when did you quit?: 1997 - Social History Usual Living Arrangement: With Spouse ADL: Independent History of Recent Travel: No Home Medications - Allergies Allergies/Adverse Reactions: Allergies Allergy/AdvReac Type Severity Reaction Status Date / Time levofloxacin [From Levaquin] Allergy Intermediate Swelling Verified 08/31/18 23: 56 - Home Medications Home Medications: Ambulatory Orders Albuterol Sulfate [Proair Respiclick] 90 mcg IH PRN 08/22/16 Aspirin [ASA -] 81 mg PO ACDIN 08/22/16 Diltiazem HCl [Diltiazem 24Hr ER] 120 mg PO DAILY 08/22/16 Linaclotide [Linzess] 145 mcg PO BID 08/22/16 Lisinopril 10 mg PO HS 08/22/16 Nitroglycerin [place] [Nitrolingual [place] -] 1 spray TL PRN PRN 08/22/16 Ranolazine [Ranexa] 1,000 mg PO BID 08/22/16 Beclomethasone Dipropionate [Qvar] 2 puff IH BID 01/16/17 Hyoscyamine Sulfate 0.125 mg PO ASDIR PRN 03/27/17 Omeprazole 40 mg PO DAILY 03/27/17 Sucralfate [Carafate] 1 gm PO BID 07/14/17 Tiotropium Br/Olodaterol HCl [Stiolto Respimat Inhal [place]] 2.5 gm IH DAILY Amiodarone HCl [Cordarone -] 100 mg PO DAILY tablet 07/21/17 Prasugrel Hydrochloride [Effient -] 5 mg PO DAILY tab 07/21/17 Ranitidine [Zantac -] 150 mg PO DAILY tablet 07/21/17 Sertraline HCl [Zoloft -] 50 mg PO DAILY tablet 07/21/17 Sucralfate [Carafate -] 1 gm PO QID tablet 07/21/17 Tamsulosin HCl [Flomax -] 0.4 mg PO DAILY@0830 cap.er.24h 07/21/17 oxyCODONE HCL [Roxicodone -] 30 mg PO HS PRN tablet MDD 1 07/21/17 Albuterol 0.083% Nebulizer Pauline [Ventolin 0.083% Nebulizer Soln -] 1 amp NEB PRN 09/01/18 Atorvastatin Ca [Lipitor] 40 mg PO HS 09/01/18 Ergocalciferol (Vitamin D2) [Vitamin D2] 50,000 unit PO DAILY 09/01/18 Fenofibric Acid [Trilipix -] 105 mg PO DAILY 09/01/18 Isosorbide Mononitrate [Imdur -] 60 mg PO DAILY 09/01/18 Isosorbide Mononitrate [Isosorbide Mononitrate ER] 60 mg PO DAILY 09/01/18 Metoclopramide HCl 5 mg PO DAILY 09/01/18 Ranolazine [Ranexa -] 1,000 mg PO BID 09/01/18 Warfarin Na [Coumadin -] 1 mg PO DAILY@1800 09/01/18 Family Disease History - Family Disease History Family Disease History: Heart Disease: Brother Vital Signs: Vital Signs Temperature 98.8 F 09/01/18 03:21 Pulse Rate 106 H 09/01/18 03:21 Respiratory Rate 17 09/01/18 03:21 Blood Pressure 139/74 09/01/18 03:21 O2 Sat by Pulse Oximetry (%) 98 09/01/18 08:00 - Other Data Labs, Other Data: INR, PTT INR 2.48 (0.83-1.09) H 09/01/18 00:45 Troponin, BNP 09/01/18 09/01/18 00:45 00:45 Troponin I 0.06 H B-Natriuretic Peptide 705.1 H Troponin, BNP 09/01/18 09/01/18 00:45 00:45 Troponin I 0.06 H B-Natriuretic Peptide 705.1 H
[2018-09-01 08:16] LABS: BASO % 0.1 % (0-2.0); EOS % 0.2 % (0-4.5); HEMOGLOBIN 12.2 GM/dL (11.7-16.9); LYMPH % 3.6 % (8-40); MCH 27.5 pg (25.7-33.7); MCHC 32.9 g/dl (32.0-35.9); MEAN CELL VOLUME 83.6 fl (80-96); MEAN PLT VOLUME 8.1 fl (7.5-11.1); MONO % 1.4 % (3.8-10.2); NEUT % 94.7 % (42.8-82.8); PLATELET COUNT 240 K/MM3 (134-434); RBC 4.43 M/mm3 (4.00-5.60); RDW 14.2 % (11.9-15.9); WHITE BLOOD COUNT 9.5 K/mm3 (4.0-10.0)
[2018-09-01] MEDS ORDERED: TAMSULOSIN HCL 0.4 MG CAP PO SCH ×2 (08:30→21:00)
--- NOTE | 2018-09-01 08:49 | CON.PULM ---
Consult Consult Specialty:: PULMONARY Referred by:: SUE Reason for Consultation:: SOB - History of Present Illness Chief Complaint: SOB History of Present Illness: 62-year-old male with history of hypertension, hyperlipidemia, atrial fibrillation on Coumadin, aortic stenosis, coronary disease status post multiple stent placements, congestive heart failure, COPD, GERD, SVT presents with worsening chest pain and shortness of breath today. Patient reports left sided chest pain worsened exertion. Notices some chest tightness as well as shortness of breath. He had taken some albuterol with some mild relief. Denies any fevers or chills. Denies cough. However, patient was concerned for symptoms were came to the ER. Patient had taken a baby aspirin prior to arrival.Recent cath at [place] last week, he was told his "heart muscle was good". 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: No: Alzheimer's Cardio/Vascular: Yes: AFIB, Aortic Insufficiency, Aortic Stenosis, CAD, CHF ( chronic diastolic), HTN, Hyperlipdemia, [place], Other (SVT) Pulmonary: Yes: COPD, Sleep Apnea Gastrointestinal: Yes: GERD Hepatobiliary: No: Cirrhosis Renal/: No: Renal Failure Psych: Yes: Anxiety, Depression Musculoskeletal: Yes: Chronic low back pain - Past Surgical History Past Surgical History: Yes: Stent (Multiple cardiac stents; pulmonary vein ablation Rx x 2 for AF/flutter) - Alcohol/Substance Use Hx Alcohol Use: No History of Substance Use: reports: None - Smoking History Smoking history: Former smoker Have you smoked in the past 12 months: No Aproximately how many cigarettes per day: 0 If you are a former smoker, when did you quit?: 1997 - Social History Usual Living Arrangement: With Spouse ADL: Independent History of Recent Travel: No Home Medications - Allergies Allergies/Adverse Reactions: Allergies Allergy/AdvReac Type Severity Reaction Status Date / Time levofloxacin [From Levaquin] Allergy Intermediate Swelling Verified 08/31/18 23: 56 - Home Medications Home Medications: Ambulatory Orders Albuterol Sulfate [Proair Respiclick] 90 mcg IH PRN 08/22/16 Aspirin [ASA -] 81 mg PO ACDIN 08/22/16 Diltiazem HCl [Diltiazem 24Hr ER] 120 mg PO DAILY 08/22/16 Linaclotide [Linzess] 145 mcg PO BID 08/22/16 Lisinopril 10 mg PO HS 08/22/16 Nitroglycerin [place] [Nitrolingual [place] -] 1 spray TL PRN PRN 08/22/16 Ranolazine [Ranexa] 1,000 mg PO BID 08/22/16 Beclomethasone Dipropionate [Qvar] 2 puff IH BID 01/16/17 Hyoscyamine Sulfate 0.125 mg PO ASDIR PRN 03/27/17 Omeprazole 40 mg PO DAILY 03/27/17 Sucralfate [Carafate] 1 gm PO BID 07/14/17 Tiotropium Br/Olodaterol HCl [Stiolto Respimat Inhal [place]] 2.5 gm IH DAILY Amiodarone HCl [Cordarone -] 100 mg PO DAILY tablet 07/21/17 Prasugrel Hydrochloride [Effient -] 5 mg PO DAILY tab 07/21/17 Ranitidine [Zantac -] 150 mg PO DAILY tablet 07/21/17 Sertraline HCl [Zoloft -] 50 mg PO DAILY tablet 07/21/17 Sucralfate [Carafate -] 1 gm PO QID tablet 07/21/17 Tamsulosin HCl [Flomax -] 0.4 mg PO DAILY@0830 cap.er.24h 07/21/17 oxyCODONE HCL [Roxicodone -] 30 mg PO HS PRN tablet MDD 1 07/21/17 Albuterol 0.083% Nebulizer Pauline [Ventolin 0.083% Nebulizer Soln -] 1 amp NEB PRN 09/01/18 Atorvastatin Ca [Lipitor] 40 mg PO HS 09/01/18 Ergocalciferol (Vitamin D2) [Vitamin D2] 50,000 unit PO DAILY 09/01/18 Fenofibric Acid [Trilipix -] 105 mg PO DAILY 09/01/18 Isosorbide Mononitrate [Imdur -] 60 mg PO DAILY 09/01/18 Isosorbide Mononitrate [Isosorbide Mononitrate ER] 60 mg PO DAILY 09/01/18 Metoclopramide HCl 5 mg PO DAILY 09/01/18 Ranolazine [Ranexa -] 1,000 mg PO BID 09/01/18 Warfarin Na [Coumadin -] 1 mg PO DAILY@1800 09/01/18 Family Disease History - Family Disease History Family Disease History: Heart Disease: Brother Review of Systems - Review of Systems Constitutional: denies: Fever, Lethargy, Loss of Appetite Eyes: denies: Blurred Vision HENT: denies: Difficult Swallowing Neck: denies: Decreased ROM Cardiovascular: reports: Chest Pain, Shortness of Breath Respiratory: reports: Exercise Intolerance, Orthopnea, Snoring, SOB, SOB on Exertion. denies: Hemoptysis, Wheezing Gastrointestinal: reports: No Symptoms Genitourinary: reports: No Symptoms Physical Exam Vital Sings: Vital Signs Temperature 98.8 F 09/01/18 03:21 Pulse Rate 106 H 09/01/18 03:21 Respiratory Rate 17 09/01/18 03:21 Blood Pressure 139/74 09/01/18 03:21 O2 Sat by Pulse Oximetry (%) 94 L 09/01/18 08:00 Constitutional: Yes: Calm Eyes: Yes: EOM Intact HENT: Yes: Normocephalic Neck: Yes: Trachea Midline Cardiovascular: Yes: Pulse Irregular, S1, S2 Respiratory: Yes: Diminished ...Clubbing: No Gastrointestinal: Yes: Normal Bowel Sounds, Soft Renal/: Yes: WNL Breast(s): Yes: WNL Musculoskeletal: Yes: WNL Edema: LLE: 1+, RLE: 1+ Neurological: Yes: Alert Labs: CBC, BMP 09/01/18 06:35 ABG Results ABG pH 7.34 (7.35-7.45) L 09/01/18 06:45 ABG pCO2 at Pt Temp 46.4 mmHg (35-45) H 09/01/18 06:45 ABG pO2 at Pt Temp 354 mmHg (80-105) H 09/01/18 06:45 ABG HCO3 24.4 mmol/L (22-27) 09/01/18 06:45 ABG O2 Sat (Measured) 100.0 % (95-98) H 09/01/18 06:45 ABG O2 Content 17.9 % vol (15-22) 09/01/18 06:45 ABG Base Excess -1.0 meq/l (-2-2) 09/01/18 06:45 rest reviewed Imaging - Results Chest X-ray: Report Reviewed, Image Reviewed Problem List - Problems (1) Chest pain Code(s): R07.9 - CHEST PAIN, UNSPECIFIED Qualifiers: Chest pain type: unspecified Qualified Code(s): R07.9 - Chest pain, unspecified (2) Elevated troponin Code(s): R79.89 - OTHER SPECIFIED ABNORMAL FINDINGS OF BLOOD CHEMISTRY (3) GERD (gastroesophageal reflux disease) Code(s): K21.9 - GASTRO-ESOPHAGEAL REFLUX DISEASE WITHOUT ESOPHAGITIS (4) Acute exacerbation of CHF (congestive heart failure) Code(s): I50.9 - HEART FAILURE, UNSPECIFIED (5) Aortic stenosis Code(s): I35.0 - NONRHEUMATIC AORTIC (VALVE) STENOSIS (6) CAD (coronary artery disease) Code(s): I25.10 - ATHSCL HEART DISEASE OF [place] CORONARY ARTERY W/O ANG PCTRS (7) Dyspnea Code(s): R06.00 - DYSPNEA, UNSPECIFIED (8) Obstructive sleep apnea Code(s): G47.33 - OBSTRUCTIVE SLEEP APNEA (ADULT) (PEDIATRIC) (9) PAF (paroxysmal atrial fibrillation) Code(s): I48.0 - PAROXYSMAL ATRIAL FIBRILLATION Assessment/Plan Acute hypercapneic hypoxemic resp failure Likely due to acute pulmonary edema etiology to be determined r/o ACS/worsening /Volume overload/PAF doubt A/E copd or acute pneumonia given presenting symptoms Patient did respond to BIPAP/diuretic trial Cycle trops/EKG/echo/Cardio f/u/CXR continue supplemental o2/NIPPV as required/cautious diuretics in view of / bronchodilators prn Patient requesting transfer to [place] continue Tele monitoring David NICHOLSON MD
[2018-09-01] MEDS ORDERED: PT OWN MED DRAWER 7, Y5N ONE ×3 (09:07→21:01)
[2018-09-01] MEDS ORDERED: DEXTROSE 5%-WATER - 50 ML IVPB ONE (09:08)
[2018-09-01] MEDS: methylPREDNISolone NA SUCC 40 MG/1 ML VIAL IVPUSH SCH ×3 (09:11→21:07)
[2018-09-01] MEDS: AMIODARONE HCL 200 MG TABLET (FP) PO SCH (09:13)
--- NOTE | 2018-09-01 09:17 | PN ---
Progress Note, Physician Chief Complaint: Afib CHF COPD History of Present Illness: Previous notes and events reviewed awake and alert NAD patient had episode of hypoxia last night wiht SpO2 in 80s, DINKEY ENGINE OPERATOR called and patient placed on Bipap and breathing improved on exam patient states breathing is better patient is requesting to be transferred to [place] where his director of clinical education is located - Current Medication List Current Medications: Active Medications Albuterol Sulfate (Ventolin Hfa Inhaler -) 2 puff IH Q6H PRN PRN Reason: SHORTNESS OF BREATH Albuterol Sulfate (Ventolin 0.083% Nebulizer Soln -) 1 amp NEB Q4H PRN PRN Reason: SHORT OF BREATH/WHEEZING Last Admin: 09/01/18 08:01 Dose: 1 amp Amiodarone HCl (Cordarone -) 100 mg PO DAILY RENY Aspirin (Asa -) 81 mg PO ACDIN RENY Atorvastatin Calcium (Lipitor -) 40 mg PO HS RENY Diltiazem HCl (Cardizem Cd -) 120 mg PO DAILY RENY Fenofibric Acid (Trilipix -) 135 mg PO DAILY [facility] Furosemide (Lasix Injection -) 40 mg IVPUSH BID@0600,1400 RENY Last Admin: 09/01/18 05:40 Dose: 40 mg Hyoscyamine Sulfate (Levsin Odt -) 0.125 mg PO Q6H PRN PRN Reason: ABDOMINAL PAIN Azithromycin 250 mg/ Dextrose 250 mls @ 250 mls/hr IVPB DAILY [facility] Ceftriaxone Sodium 1 gm/ (Dextrose) 50 mls @ 100 mls/hr IVPB DAILY [facility]; Protocol Last Admin: 09/01/18 06:37 Dose: 100 mls/hr Isosorbide Mononitrate (Imdur -) 60 mg PO DAILY [facility] Lisinopril (Prinivil) 10 mg PO HS [facility] Methylprednisolone Sodium Succinate (Solu-Medrol -) 40 mg IVPUSH Q6H-IV RENY Metoclopramide HCl (Reglan -) 5 mg PO DAILY [facility] Non-Formulary Medication (Beclomethasone Dipropionate [Qvar]) 2 puff IH BID [facility] Non-Formulary Medication (Linaclotide [Linzess]) 145 mcg PO BID RENY Prasugrel (Effient -) 5 mg PO DAILY R[facility]Y Ranitidine HCl (Zantac -) 150 mg PO DAILY [facility] Ranolazine (Ranexa -) 1,000 mg PO BID RENY Sertraline HCl (Zoloft -) 50 mg PO DAILY RENY Sucralfate (Carafate -) 1 gm PO ACHS RENY Tamsulosin HCl (Flomax -) 0.4 mg PO DAILY@0830 [facility] - Objective Vital Signs: Vital Signs Temperature 98 F 09/01/18 06:00 Pulse Rate 104 H 09/01/18 06:00 Respiratory Rate 18 09/01/18 06:00 Blood Pressure 150/92 09/01/18 06:00 O2 Sat by Pulse Oximetry (%) 94 L 09/01/18 08:00 Constitutional: Yes: No Distress, Calm, Obese Eyes: Yes: Conjunctiva Clear HENT: Yes: Atraumatic Cardiovascular: Yes: Tachycardia, Pulse Irregular Respiratory: Yes: Regular, Diminished, On Nasal O2 Gastrointestinal: Yes: Normal Bowel Sounds, Soft, Abdomen, Obese Musculoskeletal: Yes: WNL Extremities: Yes: WNL Edema: No Neurological: Yes: Alert, Oriented Psychiatric: Yes: Alert, Oriented Labs: CBC, BMP 09/01/18 06:35 INR, PTT INR 2.48 (0.83-1.09) H 09/01/18 00:45 - ....Imaging Chest X-ray: Report Reviewed Problem List - Problems (1) Acute exacerbation of COPD with asthma Assessment/Plan: -Pulm on board -IV Solumedrol -Bronchodilators -Bipap as needed -O2 via NC -keep SpO2 >90% -Azithromycin and Ceftriaxone -CXR shows progressive congestive and infiltrative changes with enlarged heart and dense left base Code(s): J44.1 - CHRONIC OBSTRUCTIVE PULMONARY DISEASE W (ACUTE) EXACERBATION; J45.901 - UNSPECIFIED ASTHMA WITH (ACUTE) EXACERBATION (2) BPH (benign prostatic hyperplasia) Assessment/Plan: -Tamsulosin Code(s): N40.0 - BENIGN PROSTATIC HYPERPLASIA WITHOUT LOWER URINRY TRACT SYMP (3) Elevated troponin Assessment/Plan: -Trop 0.06 -repeat trop ordered -tele monitoring Code(s): R79.89 - OTHER SPECIFIED ABNORMAL FINDINGS OF BLOOD CHEMISTRY (4) GERD (gastroesophageal reflux disease) Assessment/Plan: -Pantoprazole Code(s): K21.9 - GASTRO-ESOPHAGEAL REFLUX DISEASE WITHOUT ESOPHAGITIS (5) Chest pain Assessment/Plan: -tele monitoring -cardiology on board -recently had 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 week with director of clinical education at [place]-- requesting to be transferred to [place] Code(s): R07.9 - CHEST PAIN, UNSPECIFIED Qualifiers: Chest pain type: unspecified Qualified Code(s): R07.9 - Chest pain, unspecified (6) Atrial fibrillation Assessment/Plan: -Coumadin -monitor INR daily -therapeutic INR goal 2-3 -INR 2.48 Code(s): I48.91 - UNSPECIFIED ATRIAL FIBRILLATION (7) CAD (coronary artery disease) Assessment/Plan: -Aspirin and Ranexa Code(s): I25.10 - ATHSCL HEART DISEASE OF [place] CORONARY ARTERY W/O ANG PCTRS Qualifiers: (8) Chronic diastolic heart failure Assessment/Plan: -Cardiology on board -tele monitoring -1L fluid restriction -daily weights -Ranexa, Imdur Code(s): I50.32 - CHRONIC DIASTOLIC (CONGESTIVE) HEART FAILURE (9) Pneumonia Assessment/Plan: -CXR shows progressive congestive and infiltrative changes with enlarged heart and dense left base -no leukocytosis -afebrile -Azithromycin and Ceftriaxone Code(s): J18.9 - PNEUMONIA, UNSPECIFIED ORGANISM Assessment/Plan see problem list dvt ppx
[2018-09-01] MEDS: SUCRALFATE 1 GM TABLET (FP) PO SCH ×4 (09:18→21:07)
[2018-09-01] MEDS: RANOLAZINE E.R. 1,000 MG TABLET (FP) PO SCH ×2 (09:20→21:07)
[2018-09-01] MEDS: ISOSORBIDE MONONITRATE 60 MG TAB.SR.24H (FP) PO SCH (09:20)
[2018-09-01] MEDS: FENOFIBRIC ACID 135 MG CAP PO SCH (09:21)
[2018-09-01] MEDS: SERTRALINE HCL 50 MG TABLET (FP) PO SCH (09:22)
[2018-09-01] MEDS: METOCLOPRAMIDE HCL 10 MG TABLET (FP) PO SCH (09:23)
[2018-09-01] MEDS: PRASUGREL HCL 5 MG TAB PO SCH (09:25)
[2018-09-01] MEDS ORDERED: RANITIDINE HCL 150 MG TABLET (FP) PO SCH (10:00)
[2018-09-01 10:09] LABS: ALBUMIN 4.1 g/dl (3.4-5.0); BILIRUBIN,TOTAL 0.6 mg/dL (0.2-1); BLOOD UREA NITROGEN 18.8 mg/dL (7-18); CALCIUM 7.1 mg/dL (8.5-10.1); CREATININE 1.2 mg/dL (0.55-1.3); MAGNESIUM 2.5 mg/dL (1.8-2.4); POTASSIUM 4.3 mmol/L (3.5-5.1); TOT PROT 7.6 g/dl (6.4-8.2)
[2018-09-01 10:35] LABS: PHOSPHOROUS 4.6 mg/dL (2.5-4.9)
[2018-09-01 11:12] LABS: ANISOCYTOSIS 2+; MACROCYTOSIS 0; OVALOCYTE 1+; PLATELET ESTIMATE NORMAL
--- NOTE | 2018-09-01 11:20 | EKG ---
Test Reason : Blood Pressure : / mmHG Vent. Rate : 108 BPM Atrial Rate : 108 BPM P-R Int : 174 ms QRS Dur : 158 ms QT Int : 380 ms P-R-T Axes : 072 -83 044 degrees QTc Int : 509 ms SINUS TACHYCARDIA RIGHT BUNDLE BRANCH BLOCK LEFT ANTERIOR FASCICULAR BLOCK BIFASCICULAR BLOCK LATERAL INFARCT (CITED ON OR BEFORE 01-MAR-2018) INFERIOR INFARCT (CITED ON OR BEFORE 01-MAR-2018) ABNORMAL ECG WHEN COMPARED WITH ECG OF 01-MAR-2018 21:57, [place] INTERVAL HAS DECREASED Confirmed by ALEA SHEPARD MD ([id number]) on 09/01/2018 11:19:43 AM Referred By: Confirmed By:ALEA SHEPARD MD
[2018-09-01] MEDS: PANTOPRAZOLE SODIUM 40 MG VIAL IVPUSH SCH (11:54)
--- NOTE | 2018-09-01 12:36 | CON.CARD ---
Consult Consult Specialty:: Cardiology - History of Present Illness History of Present Illness: 63 year old male with PMHX A-fib (on Coumadin), aortic stenosis, CAD(post multiple stent placement), COPD, CHF, GERD,BPH, Depression, HTN/HLD, and SVT present to the ED for Chest pain and SOB (pain is sharp/ stabbing like on left side,intermittent, non-radiating associated with sob and worse with exertion. Patient has had recent Cardiac Cath at [facility] without stent placement. Patient did take ASA prior to coming to ED. Patient denies fever, chills at this time. PMH Past medical history Major events s/p multiple coronary stents s/p PTCA of distal OM1 (12/24/10) s/p pulmonary vein isolation procedures (ablation) x 2 for Atrial Fibrillation Cardiac Cath [place] 01-17-09 Coronary Angiography [facility] 11-04-09 Cardiac Cath [facility] 12-31-09 Cardiac Cath [facility] 06-01-10 Cardiac Cath [facility] 06-22-10 Cardiac Cath [place] 12-24-10 Cardiac Cath [place] 03-17-12 Cardiac Cath [place] 05-11-12 Cardiac [place] 06-01-12 Cardiac Cath [place] 03-28-15 Cardiac Cath [place] 03-28-15 Cardiac Cath [facility] 03-12-16 Cardiac Cath [place] 08-24-18 Triple vessel disease as described: Left Main 30% LAD proximal 30%, and mid 50%, proximal stent patent with 30% ISR, mid stent patent with 30% ISR, distal stent patent with 30% ISR, distal 80% tapers to small caliber vessel D1 90% large vessel LCx mid 40% OM1 100% ISR previous stent sites OM2 100% RCA mid stent site 40% ISR, distal RCA site patent widely, distal RCA 70-80% RPDA previous stent sites patent RV branch 100% Right to left, left to right and left to left collaterals coronary artery disease Patent stent: Left Anterior Descending - proximal ad mid segments Patent stent: Right Coronary Artery - mod and distal segments Patent stent: Right Posterior Descending Instent restenosis: 1st Obtuse Marginal Severe aortic stenosis Mild to Moderate aortic insufficiency Mild Pulmonary Hypertension Severe aortic valve stenosis with GEORGE calculated ~ 0.9-0.99 cm2 and mean gradient across valve measured ~ 23 mmHg LVEDP ~10 mmHg PASP measured up to 40 mmHg Mean RA pressure ~ 11 mmHg Mean PCW ~ 18 mmHg Ongoing medical problems Medical history: angina pectoris obstructive sleep apnea Anxiety Atrial fibrillation-->ablation Rx CAD: s/p multiple PCIs; the latest 12/08: patent mid LAD and RPDA prior stents; PTCA of distal OM1; latest angiograms 04/15 and 03/16: non-obstructive CAD Congestive heart failure (diastolic) COPD Hypercholesterolemia Hypertension Moderate aortic regurgitation Obesity s/p pulmonary vein ablation x 2 for PAF, most recently at [facility] (followed by Dr. Fam Pollock) - History Source History Provided By: Patient, Medical Record - Past Medical History [employer]: No: Alzheimer's Cardio/Vascular: Yes: AFIB, Aortic Insufficiency, Aortic Stenosis, CAD, CHF ( chronic diastolic), HTN, Hyperlipdemia, IN, Other (SVT) Pulmonary: Yes: COPD, Sleep Apnea Gastrointestinal: Yes: GERD Hepatobiliary: No: Cirrhosis Renal/: No: Renal Failure Psych: Yes: Anxiety, Depression Musculoskeletal: Yes: Chronic low back pain - Past Surgical History Past Surgical History: Yes: Stent (Multiple cardiac stents; pulmonary vein ablation Rx x 2 for AF/flutter) - Alcohol/Substance Use Hx Alcohol Use: No History of Substance Use: reports: None - Smoking History Smoking history: Former smoker Have you smoked in the past 12 months: No Aproximately how many cigarettes per day: 0 If you are a former smoker, when did you quit?: 1997 - Social History Usual Living Arrangement: With Spouse ADL: Independent History of Recent Travel: No Home Medications - Allergies Allergies/Adverse Reactions: Allergies Allergy/AdvReac Type Severity Reaction Status Date / Time levofloxacin [From Levaquin] Allergy Intermediate Swelling Verified 08/31/18 23: 56 - Home Medications Home Medications: Ambulatory Orders Albuterol Sulfate [Proair Respiclick] 90 mcg IH PRN 08/22/16 Aspirin [ASA -] 81 mg PO ACDIN 08/22/16 Diltiazem HCl [Diltiazem 24Hr ER] 120 mg PO DAILY 08/22/16 Linaclotide [Linzess] 145 mcg PO BID 08/22/16 Lisinopril 10 mg PO HS 08/22/16 Nitroglycerin Almo [Nitrolingual Almo -] 1 spray TL PRN PRN 08/22/16 Ranolazine [Ranexa] 1,000 mg PO BID 08/22/16 Beclomethasone Dipropionate [Qvar] 2 puff IH BID 01/16/17 Hyoscyamine Sulfate 0.125 mg PO ASDIR PRN 03/27/17 Omeprazole 40 mg PO DAILY 03/27/17 Sucralfate [Carafate] 1 gm PO BID 07/14/17 Tiotropium Br/Olodaterol HCl [Stiolto Respimat Inhal Almo] 2.5 gm IH DAILY Amiodarone HCl [Cordarone -] 100 mg PO DAILY tablet 07/21/17 Prasugrel Hydrochloride [Effient -] 5 mg PO DAILY tab 07/21/17 Ranitidine [Zantac -] 150 mg PO DAILY tablet 07/21/17 Sertraline HCl [Zoloft -] 50 mg PO DAILY tablet 07/21/17 Sucralfate [Carafate -] 1 gm PO QID tablet 07/21/17 Tamsulosin HCl [Flomax -] 0.4 mg PO DAILY@0830 cap.er.24h 07/21/17 oxyCODONE HCL [Roxicodone -] 30 mg PO HS PRN tablet MDD 1 07/21/17 Albuterol 0.083% Nebulizer Pauline [Ventolin 0.083% Nebulizer Soln -] 1 amp NEB PRN 09/01/18 Atorvastatin Ca [Lipitor] 40 mg PO HS 09/01/18 Ergocalciferol (Vitamin D2) [Vitamin D2] 50,000 unit PO DAILY 09/01/18 Fenofibric Acid [Trilipix -] 105 mg PO DAILY 09/01/18 Isosorbide Mononitrate [Imdur -] 60 mg PO DAILY 09/01/18 Isosorbide Mononitrate [Isosorbide Mononitrate ER] 60 mg PO DAILY 09/01/18 Metoclopramide HCl 5 mg PO DAILY 09/01/18 Ranolazine [Ranexa -] 1,000 mg PO BID 09/01/18 Warfarin Na [Coumadin -] 1 mg PO DAILY@1800 09/01/18 Family Disease History - Family Disease History Family Disease History: Heart Disease: Brother Review of Systems - Review of Systems Constitutional: reports: No Symptoms Eyes: reports: No Symptoms HENT: reports: No Symptoms Neck: reports: No Symptoms Cardiovascular: reports: Shortness of Breath Respiratory: reports: SOB, SOB on Exertion Gastrointestinal: reports: No Symptoms Genitourinary: reports: No Symptoms Breasts: reports: No Symptoms Reported Musculoskeletal: reports: No Symptoms Integumentary: reports: No Symptoms Neurological: reports: No Symptoms Endocrine: reports: No Symptoms Hematology/Lymphatic: reports: No Symptoms Psychiatric: reports: No Symptoms Vital Signs: Vital Signs Temperature 98.1 F 09/01/18 08:10 Pulse Rate 106 H 09/01/18 08:10 Respiratory Rate 22 H 09/01/18 08:10 Blood Pressure 143/85 09/01/18 08:10 O2 Sat by Pulse Oximetry (%) 94 L 09/01/18 08:10 Constitutional: Yes: Well Nourished, No Distress, Calm Eyes: Yes: WNL, Conjunctiva Clear, EOM Intact HENT: Yes: WNL, Atraumatic, Normocephalic Neck: Yes: WNL, Supple, Trachea Midline Respiratory: Yes: WNL, Regular, CTA Bilaterally Gastrointestinal: Yes: WNL, Normal Bowel Sounds Renal/: Yes: WNL Cardiovascular: Yes: WNL, Regular Rate and Rhythm Heart Sounds: Yes: S1, S2 Musculoskeletal: Yes: WNL Extremities: Yes: WNL Edema: Yes Edema: LLE: 1+, RLE: 1+ Integumentary: Yes: WNL Neurological: Yes: WNL, Alert, Oriented ...Motor Strength: WNL Psychiatric: Yes: WNL, Alert, Oriented - Other Data Labs, Other Data: CBC, BMP 09/01/18 06:35 09/01/18 06:35 INR, PTT INR 2.48 (0.83-1.09) H 09/01/18 00:45 Troponin, BNP 09/01/18 09/01/18 09/01/18 00:45 00:45 06:35 Troponin I 0.06 H 0.05 B-Natriuretic Peptide 705.1 H Troponin, BNP 09/01/18 09/01/18 09/01/18 00:45 00:45 06:35 Troponin I 0.06 H 0.05 B-Natriuretic Peptide 705.1 H Imaging - Results Chest X-ray: Image Reviewed (chf cm L base infiltrate) EKG: Image Reviewed (atrial tachycardia bifascicular block) Problem List - Problems (1) Acute exacerbation of COPD with asthma Code(s): J44.1 - CHRONIC OBSTRUCTIVE PULMONARY DISEASE W (ACUTE) EXACERBATION; J45.901 - UNSPECIFIED ASTHMA WITH (ACUTE) EXACERBATION (2) BPH (benign prostatic hyperplasia) Code(s): N40.0 - BENIGN PROSTATIC HYPERPLASIA WITHOUT LOWER URINRY TRACT SYMP (3) COPD (chronic obstructive pulmonary disease) Code(s): J44.9 - CHRONIC OBSTRUCTIVE PULMONARY DISEASE, UNSPECIFIED Qualifiers: COPD type: unspecified COPD Qualified Code(s): J44.9 - Chronic obstructive pulmonary disease, unspecified (4) Chest pain Code(s): R07.9 - CHEST PAIN, UNSPECIFIED Qualifiers: Chest pain type: unspecified Qualified Code(s): R07.9 - Chest pain, unspecified (5) Depression Code(s): F32.9 - MAJOR DEPRESSIVE DISORDER, SINGLE EPISODE, UNSPECIFIED (6) Elevated troponin Code(s): R79.89 - OTHER SPECIFIED ABNORMAL FINDINGS OF BLOOD CHEMISTRY (7) GERD (gastroesophageal reflux disease) Code(s): K21.9 - GASTRO-ESOPHAGEAL REFLUX DISEASE WITHOUT ESOPHAGITIS (8) TRAYC (acute kidney injury) Code(s): N17.9 - ACUTE KIDNEY FAILURE, UNSPECIFIED (9) Acute coronary syndrome Code(s): I24.9 - ACUTE ISCHEMIC HEART DISEASE, UNSPECIFIED (10) Acute exacerbation of CHF (congestive heart failure) Code(s): I50.9 - HEART FAILURE, UNSPECIFIED (11) Acute on chronic diastolic (congestive) heart failure Code(s): I50.33 - ACUTE ON CHRONIC DIASTOLIC (CONGESTIVE) HEART FAILURE (12) Aortic stenosis Code(s): I35.0 - NONRHEUMATIC AORTIC (VALVE) STENOSIS (13) Atypical chest pain Code(s): R07.89 - OTHER CHEST PAIN (14) Bifascicular bundle branch block Code(s): I45.2 - BIFASCICULAR BLOCK (15) CAD (coronary artery disease) Code(s): I25.10 - ATHSCL HEART DISEASE OF [place] CORONARY ARTERY W/O ANG PCTRS (16) CAP (community acquired pneumonia) Code(s): J18.9 - PNEUMONIA, UNSPECIFIED ORGANISM Qualifiers: (17) CHF (congestive heart failure) Code(s): I50.9 - HEART FAILURE, UNSPECIFIED (18) COPD exacerbation Code(s): J44.1 - CHRONIC OBSTRUCTIVE PULMONARY DISEASE W (ACUTE) EXACERBATION (19) Chest heaviness Code(s): R07.89 - OTHER CHEST PAIN (20) Contusion of rib on right side Code(s): S20.211A - CONTUSION OF RIGHT FRONT WALL OF THORAX, INITIAL ENCOUNTER (21) Demand ischemia Code(s): I24.8 - OTHER FORMS OF ACUTE ISCHEMIC HEART DISEASE (22) Dyspnea Code(s): R06.00 - DYSPNEA, UNSPECIFIED (23) Epigastric abdominal pain Code(s): R10.13 - EPIGASTRIC PAIN (24) Epistaxis Code(s): R04.0 - EPISTAXIS (25) Hypertriglyceridemia Code(s): E78.1 - PURE HYPERGLYCERIDEMIA (26) Hypokalemia Code(s): E87.6 - HYPOKALEMIA (27) Hypotension Code(s): I95.9 - HYPOTENSION, UNSPECIFIED (28) Hypothyroid Code(s): E03.9 - HYPOTHYROIDISM, UNSPECIFIED (29) LPRD (laryngopharyngeal reflux disease) Code(s): K21.9 - GASTRO-ESOPHAGEAL REFLUX DISEASE WITHOUT ESOPHAGITIS (30) Leg pain Code(s): M79.606 - PAIN IN LEG, UNSPECIFIED (31) Myocardial disease Code(s): I51.5 - MYOCARDIAL DEGENERATION (32) Nausea Code(s): R11.0 - NAUSEA (33) Obesity Code(s): E66.9 - OBESITY, UNSPECIFIED (34) Obstructive sleep apnea Code(s): G47.33 - OBSTRUCTIVE SLEEP APNEA (ADULT) (PEDIATRIC) (35) On amiodarone therapy Code(s): Z79.899 - OTHER SECTION WEAVER (CURRENT) DRUG THERAPY (36) PAF (paroxysmal atrial fibrillation) Code(s): I48.0 - PAROXYSMAL ATRIAL FIBRILLATION (37) Pleural effusion Code(s): J90 - PLEURAL EFFUSION, NOT ELSEWHERE CLASSIFIED (38) Pleuritic chest pain Code(s): R07.81 - PLEURODYNIA (39) Pneumonia Code(s): J18.9 - PNEUMONIA, UNSPECIFIED ORGANISM (40) Presence of stent in coronary artery in patient with coronary artery disease Code(s): I25.10 - ATHSCL HEART DISEASE OF [place] CORONARY ARTERY W/O ANG PCTRS; Z95.5 - PRESENCE OF CORONARY ANGIOPLASTY IMPLANT AND GRAFT (41) Rib fractures Code(s): S22.39XA - FRACTURE OF ONE RIB, UNSP SIDE, INIT FOR CLOS FX (42) S/P ablation of atrial fibrillation Code(s): Z98.890 - OTHER SPECIFIED POSTPROCEDURAL STATES; Z86.79 - PERSONAL HISTORY OF OTHER DISEASES OF THE CIRCULATORY SYSTEM (43) SOB (shortness of breath) Code(s): R06.02 - SHORTNESS OF BREATH (44) Sepsis Code(s): A41.9 - SEPSIS, UNSPECIFIED ORGANISM (45) Atrial fibrillation Code(s): I48.91 - UNSPECIFIED ATRIAL FIBRILLATION (46) CAD (coronary artery disease) Code(s): I25.10 - ATHSCL HEART DISEASE OF [place] CORONARY ARTERY W/O ANG PCTRS Qualifiers: (47) COPD (chronic obstructive pulmonary disease) Code(s): J44.9 - CHRONIC OBSTRUCTIVE PULMONARY DISEASE, UNSPECIFIED Qualifiers: (48) Chronic abdominal pain Code(s): R10.9 - UNSPECIFIED ABDOMINAL PAIN; G89.29 - OTHER CHRONIC PAIN (49) Chronic back pain Code(s): M54.9 - DORSALGIA, UNSPECIFIED; G89.29 - OTHER CHRONIC PAIN (50) Chronic diastolic heart failure Code(s): I50.32 - CHRONIC DIASTOLIC (CONGESTIVE) HEART FAILURE (51) Constipation Code(s): K59.00 - CONSTIPATION, UNSPECIFIED (52) History of coronary artery stent placement Code(s): Z95.5 - PRESENCE OF CORONARY ANGIOPLASTY IMPLANT AND GRAFT (53) Hyperlipidemia Code(s): E78.5 - HYPERLIPIDEMIA, UNSPECIFIED (54) Hypertension Code(s): I10 - ESSENTIAL (PRIMARY) HYPERTENSION Assessment/Plan A-fib (on Coumadin), aortic stenosis, CAD(post multiple stent placement), COPD, CHF, GERD,BPH, Depression, HTN/HLD, and SVT present to the ED for Chest pain and SOB (pain is sharp/ stabbing like on left side,intermittent, non-radiating associated with sob and worse with exertion. decompensated chf borderline tnis respiratory acidosis recent c. cath 08-24 Cardiac Cath [place] 08-24-18 Triple vessel disease as described: Left Main 30% LAD proximal 30%, and mid 50%, proximal stent patent with 30% ISR, mid stent patent with 30% ISR, distal stent patent with 30% ISR, distal 80% tapers to small caliber vessel D1 90% large vessel LCx mid 40% OM1 100% ISR previous stent sites OM2 100% RCA mid stent site 40% ISR, distal RCA site patent widely, distal RCA 70-80% RPDA previous stent sites patent RV branch 100% Right to left, left to right and left to left collaterals coronary artery disease Patent stent: Left Anterior Descending - proximal ad mid segments Patent stent: Right Coronary Artery - mod and distal segments Patent stent: Right Posterior Descending Instent restenosis: 1st Obtuse Marginal Severe aortic stenosis Mild to Moderate aortic insufficiency Mild Pulmonary Hypertension Severe aortic valve stenosis with GEORGE calculated ~ 0.9-0.99 cm2 and mean gradient across valve measured ~ 23 mmHg LVEDP ~10 mmHg PASP measured up to 40 mmHg Mean RA pressure ~ 11 mmHg Mean PCW ~ 18 mmHg Plan IV lasix elective PCI - of D1, dRCA [employer] APPRENTICE of OM1 when stable cont DAPT ASA and effient cont AC with coumadin respiratory / pulmonary treatment. Patient undergoing work-up for TAVR at [facility]. f/u serial ekgs and TNIs
--- NOTE | 2018-09-01 15:37 | ECHO ---
Name: GLEN DENG Exam:Adult Echocardiogram Study Date: 09/01/2018 01:43 PM Age: 63 yrs Reason For Study: ef chf as Height: 67 in Weight: 251 lb BSA: 2.2 m2 MMode/2D Measurements & Calculations RV S Dario: 15.6 cm/sec Doppler Measurements & Calculations Ao V2 max: 291.7 cm/sec LV V1 max P.5 mmHg Ao max P.8 mmHg LV V1 mean P.7 mmHg Ao V2 mean: 213.1 cm/sec LV V1 max: 92.9 cm/sec Ao mean P.7 mmHg LV V1 mean: 58.4 cm/sec Ao V2 VTI: 62.3 cm LV V1 VTI: 17.9 cm PA V2 max: 93.7 cm/sec Med Peak E' Dario: 7.8 cm/sec PA max P.6 mmHg Lat Peak E' Dario: 7.6 cm/sec Procedure The study was technically difficult with many images being suboptimal in quality. Left Ventricle Due to the poor quality of the echocardiogram, an assessment of left ventricular ejection fraction ca nnot be made. Regional wall motion abnormalities cannot be excluded due to limited visualization. Right Ventricle The right ventricle is not well visualized. Possible RV pacemaker lead vs artifact. Mitral Valve The mitral valve is not well visualized. Tricuspid Valve The tricuspid valve is not well visualized. Aortic Valve There is mild to moderate aortic valve thickening. Moderate valvular aortic stenosis. The severity of aortic stenosis may be underestimated due to the technically difficult nature of the study. Pulmonic Valve The pulmonic valve is not well visualized. There is no pulmonic valvular stenosis. Pericardium/Pleura There is no pericardial effusion. Interpretation Summary Suggest repeat study with contrast as outpatient for better assessment of wall motion and LVEF. The s tudy was technically difficult with many images being suboptimal in quality. Regional wall motion abnormalities cannot be excluded due to limited visualization. Due to the poor quality of the echocardiogram, an assessment of left ventricular ejection fraction ca nnot be made. Possible RV pacemaker lead vs artifact. Moderate valvular aortic stenosis. The severity of aortic stenosis may be underestimated due to the technically difficult nature of the study. MD Jaeger *Kaelyn 09/01/2018 03:36 PM
[2018-09-01] MEDS: ASPIRIN 81 MG CHEWABLE TABLETS PO SCH (15:45)
[2018-09-01] MEDS ORDERED: oxyCODONE HCL 5 MG TABLET PO ONE ×2 (16:30→22:00)
[2018-09-01] MEDS ORDERED: ACETAMINOPHEN 325 MG TABLET (FP) PO ONE (16:30)
[2018-09-01] MEDS ORDERED: WARFARIN NA 3 MG TABLET PO ONE (21:00)
[2018-09-01] MEDS: ATORVASTATIN CA 40 MG TABLET (FP) PO SCH (21:07)
[2018-09-01] MEDS ORDERED: LISINOPRIL 10 MG TABLET (FP) PO SCH (22:00)
[2018-09-02] MEDS: ALBUTEROL SO4 0.083% IH SOL 2.5 MG/3 ML VIAL.NEB. NEB PRN (00:31)
[2018-09-02] MEDS: oxyCODONE HCL 5 MG TABLET PO PRN ×3 (02:42→15:50)
[2018-09-02] MEDS: methylPREDNISolone NA SUCC 40 MG/1 ML VIAL IVPUSH SCH ×4 (03:29→21:14)
[2018-09-02] MEDS ORDERED: PT OWN MED DRAWER 7, Y5N ONE ×6 (05:54→21:12)
[2018-09-02] MEDS: FUROSEMIDE 40 MG/4 ML INJECTABLE VIAL IVPUSH SCH ×2 (06:01→14:20)
[2018-09-02] MEDS: SUCRALFATE 1 GM TABLET (FP) PO SCH ×4 (06:01→21:14)
--- NOTE | 2018-09-02 07:03 | PN ---
Progress Note (short form) - Note Progress Note: Coverage for Dr. Lana Núñez Chief Complaint: Events Noted, notes reviewed, denies any chest pain, dyspnea improved, Troponin I trend noted History of Present Illness: Seen and examined on telemetry. Events Noted, notes reviewed, denies any chest pain, dyspnea improved, Troponin I trend noted Plan to continue medical therapy optimization and additional evaluation as per the primary cardiology team Echocardiography report noted limited study - Current Medication List Current Medications Albuterol Sulfate (Ventolin Hfa Inhaler -) 2 puff IH Q6H PRN PRN Reason: SHORTNESS OF BREATH Albuterol Sulfate (Ventolin 0.083% Nebulizer Soln -) 1 amp NEB Q4H PRN PRN Reason: SHORT OF BREATH/WHEEZING Last Admin: 09/02/18 00:31 Dose: 1 amp Amiodarone HCl (Cordarone -) 100 mg PO DAILY [facility] Last Admin: 09/01/18 09:13 Dose: 100 mg Aspirin (Asa -) 81 mg PO ACDIN [facility] Last Admin: 09/01/18 15:45 Dose: 81 mg Atorvastatin Calcium (Lipitor -) 40 mg PO HS [facility] Last Admin: 09/01/18 21:07 Dose: 40 mg Diltiazem HCl (Cardizem Cd -) 120 mg PO DAILY [facility] Last Admin: 09/01/18 09:12 Dose: 120 mg Fenofibric Acid (Trilipix -) 135 mg PO DAILY [facility] Last Admin: 09/01/18 09:21 Dose: 135 mg Furosemide (Lasix Injection -) 40 mg IVPUSH BID@0600,1400 [facility] Last Admin: 09/02/18 06:01 Dose: 40 mg Hyoscyamine Sulfate (Levsin Odt -) 0.125 mg PO Q6H PRN PRN Reason: ABDOMINAL PAIN Azithromycin 250 mg/ Dextrose 250 mls @ 250 mls/hr IVPB DAILY [facility] Ceftriaxone Sodium 1 gm/ (Dextrose) 50 mls @ 100 mls/hr IVPB DAILY [facility]; Protocol Last Admin: 09/01/18 06:37 Dose: 100 mls/hr Isosorbide Mononitrate (Imdur -) 60 mg PO DAILY [facility] Last Admin: 09/01/18 09:20 Dose: 60 mg Lisinopril (Prinivil) 10 mg PO HS [facility] Last Admin: 07/05/19 21:12 Dose: 5 mg Methylprednisolone Sodium Succinate (Solu-Medrol -) 40 mg IVPUSH Q6H-IV [facility] Last Admin: 09/02/18 03:29 Dose: 40 mg Metoclopramide HCl (Reglan -) 5 mg PO DAILY [facility] Last Admin: 09/01/18 09:23 Dose: 5 mg Non-Formulary Medication (Beclomethasone Dipropionate [Qvar]) 2 puff IH BID [facility] Non-Formulary Medication (Linaclotide [Linzess]) 145 mcg PO BID [facility] Oxycodone HCl (Roxicodone -) 10 mg PO Q6H PRN PRN Reason: PAIN LEVEL 6-10 Last Admin: 09/02/18 02:42 Dose: 10 mg Pantoprazole Sodium (Protonix Iv) 40 mg IVPUSH DAILY [facility] Last Admin: 09/01/18 11:54 Dose: Not Given Prasugrel (Effient -) 5 mg PO DAILY [facility] Last Admin: 09/01/18 09:25 Dose: 5 mg Ranolazine (Ranexa -) 1,000 mg PO BID [facility] Last Admin: 09/01/18 21:07 Dose: 1,000 mg Sertraline HCl (Zoloft -) 50 mg PO DAILY [facility] Last Admin: 09/01/18 09:22 Dose: 50 mg Sucralfate (Carafate -) 1 gm PO ACHS [facility] Last Admin: 09/02/18 06:01 Dose: 1 gm Tamsulosin HCl (Flomax -) 0.4 mg PO DAILY@2100 [facility] Last Admin: 09/01/18 21:07 Dose: 0.4 mg Review of Systems Cardiovascular: As noted above Respiratory: denies Cough or Sputum Production Gastrointestinal: denies: Nausea, Vomiting, Diarrhea, Constipation or Abdominal Discomfort Musculoskeletal: No Symptoms Reported - Objective Vital Signs: Last Vital Signs Temp Pulse Resp BP Pulse Ox 97.8 F 111 H 18 119/70 97 09/02/18 06:00 09/02/18 06:00 09/02/18 06:00 09/02/18 06:00 09/01/18 20:33 Intake & Output 08/30/18 08/31/18 09/01/18 09/02/18 23:59 23:59 23:59 23:59 Intake Total 825 Output Total 2250 Balance -1425 Weight 245 lb 251 lb 12.8 oz Constitutional: No Distress, Calm Neck: Supple Negative JVD No Bruit Respiratory: Clear to A&P Cardiovascular: S1 S2 Regular Rate Rhythm Grade 2/6 JOSÉ LUIS Gastrointestinal: Soft Benign Normal Bowel Sounds Ext: Negative Edema Labs: CBC, BMP 09/01/18 06:35 09/01/18 06:35 Hepatic Panel Total Bilirubin 0.6 mg/dL (0.2-1) 09/01/18 06:35 AST 10 U/L (15-37) L 09/01/18 06:35 ALT 21 U/L (13-61) 09/01/18 06:35 Alkaline Phosphatase 39 U/L (45-117) L 09/01/18 06:35 Albumin 4.1 g/dl (3.4-5.0) 09/01/18 06:35 Troponin, BNP 09/01/18 06:35 Troponin I 0.05 INR, PTT INR 2.48 (0.83-1.09) H 09/01/18 00:45 ASSESSMENT: 1. CAD post PCI/stent with evidence of demand ischemic injury angina pectoris 2. Diastolic LV dysfunction with class 0-I NYHA classification LV failure compensated 3. PAF [id number] score of 4 on A/C Coumadin 4. Aortic stenosis 5. HTN 6. Hypercholesterolemia 7. COPD exacerbation, resolving 8. GERD PLAN: 1. Continue Coumadin as per INR and close monitoring of CBC 2. Continue ASA and Effient with caution, but preferably a single agent should be continued in view of concomitant Coumadin administration (higher bleed risk) 3. Continue Amiodarone 4. Continue Cardizem CD but ideally B-Blockers should be added unless contraindicated 5. Continue Imdur and Ranexa 6. Continue Lisinopril 7. Continue Lipitor and Trilipix 8. Continue Lasix IV 9. As outlined above further intervention as planned by the primary cardiology team/Lana Sinclair M.D.
[2018-09-02 07:48] LABS: BASO % 0.1 % (0-2.0); HEMOGLOBIN 11.4 GM/dL (11.7-16.9); LYMPH % 4.7 % (8-40); MCH 27.4 pg (25.7-33.7); MCHC 33.5 g/dl (32.0-35.9); MEAN CELL VOLUME 81.6 fl (80-96); MEAN PLT VOLUME 8.2 fl (7.5-11.1); MONO % 1.8 % (3.8-10.2); NEUT % 93.4 % (42.8-82.8); RBC 4.16 M/mm3 (4.00-5.60); WHITE BLOOD COUNT 10.9 K/mm3 (4.0-10.0)
[2018-09-02 07:51] LABS: INR 2.22 (0.83-1.09); PROTHROMBIN TIME (PATIENT) 26.4 SEC (9.7-13.0)
[2018-09-02 08:33] LABS: ALBUMIN 3.8 g/dl (3.4-5.0); BILIRUBIN,TOTAL 0.6 mg/dL (0.2-1); BLOOD UREA NITROGEN 22.7 mg/dL (7-18); CALCIUM 9.1 mg/dL (8.5-10.1); CREATININE 1.1 mg/dL (0.55-1.3); POTASSIUM 4.3 mmol/L (3.5-5.1); TOT PROT 7.1 g/dl (6.4-8.2)
[2018-09-02 08:44] LABS: PLATELET COUNT 258 K/MM3 (134-434)
--- NOTE | 2018-09-02 08:52 | PN ---
Progress Note (short form) - Note Progress Note: PULMONARY AWAKE/ALERT OFFERS NO COMPLAINTS VSS/AFEBRILE ANICTERIC BIBASILAR CRACKLES S1S2 SYST MURMUR BS+ OBESE NO EDEMA LABS/MEDS/CARDIO/XRAYS/NOTES REVIEWED ECHO WAS TECHNICALLY DIFFICULT Acute hypercapneic hypoxemic resp failure resolved Likely due to acute pulmonary edema doubt A/E copd or acute pneumonia given presenting symptoms Patient did respond to BIPAP/diuretic trial Cycle trops/EKG/Cardio f/u/CXR continue supplemental o2/NIPPV as required/cautious diuretics in view of / bronchodilators prn Patient requesting transfer to [place] continue Tele monitoring David NICHOLSON MD Problem List - Problems (1) Chest pain Code(s): R07.9 - CHEST PAIN, UNSPECIFIED Qualifiers: Chest pain type: unspecified Qualified Code(s): R07.9 - Chest pain, unspecified (2) Elevated troponin Code(s): R79.89 - OTHER SPECIFIED ABNORMAL FINDINGS OF BLOOD CHEMISTRY (3) GERD (gastroesophageal reflux disease) Code(s): K21.9 - GASTRO-ESOPHAGEAL REFLUX DISEASE WITHOUT ESOPHAGITIS (4) Acute exacerbation of CHF (congestive heart failure) Code(s): I50.9 - HEART FAILURE, UNSPECIFIED (5) Aortic stenosis Code(s): I35.0 - NONRHEUMATIC AORTIC (VALVE) STENOSIS (6) CAD (coronary artery disease) Code(s): I25.10 - ATHSCL HEART DISEASE OF [place] CORONARY ARTERY W/O ANG PCTRS (7) Dyspnea Code(s): R06.00 - DYSPNEA, UNSPECIFIED (8) Obstructive sleep apnea Code(s): G47.33 - OBSTRUCTIVE SLEEP APNEA (ADULT) (PEDIATRIC) (9) PAF (paroxysmal atrial fibrillation) Code(s): I48.0 - PAROXYSMAL ATRIAL FIBRILLATION
[2018-09-02] MEDS ORDERED: DEXTROSE 5%-WATER - 50 ML IVPB ONE (08:54)
[2018-09-02] MEDS ORDERED: cefTRIAXone SODIUM 1 GM VIAL ONE (08:54)
[2018-09-02] MEDS: RANOLAZINE E.R. 1,000 MG TABLET (FP) PO SCH ×2 (09:41→21:14)
[2018-09-02] MEDS: SERTRALINE HCL 50 MG TABLET (FP) PO SCH (09:41)
[2018-09-02] MEDS: METOCLOPRAMIDE HCL 10 MG TABLET (FP) PO SCH (09:43)
[2018-09-02] MEDS: CEFTRIAXONE 1 GM in DEXTROSE 5%-WATER - 50 ML IVPB SCH (09:43)
[2018-09-02] MEDS: AMIODARONE HCL 200 MG TABLET (FP) PO SCH (09:45)
[2018-09-02] MEDS: PANTOPRAZOLE SODIUM 40 MG VIAL IVPUSH SCH (10:01)
[2018-09-02] MEDS: ISOSORBIDE MONONITRATE 60 MG TAB.SR.24H (FP) PO SCH (10:01)
[2018-09-02] MEDS: PRASUGREL HCL 5 MG TAB PO SCH (10:01)
[2018-09-02] MEDS: FENOFIBRIC ACID 135 MG CAP PO SCH (10:02)
[2018-09-02] MEDS: AZITHROMYCIN IVPB 250 MG in DEXTROSE 5%-WATER - 250 ML IVPB SCH (10:02)
[2018-09-02 10:08] LABS: ANISOCYTOSIS 2+; MACROCYTOSIS 0; OVALOCYTE 1+; PLATELET ESTIMATE NORMAL; TEAR DROP CELLS 1+
--- NOTE | 2018-09-02 14:51 | EKG ---
Test Reason : Blood Pressure : / mmHG Vent. Rate : 107 BPM Atrial Rate : 107 BPM P-R Int : 118 ms QRS Dur : 156 ms QT Int : 344 ms P-R-T Axes : 087 -85 053 degrees QTc Int : 459 ms POOR DATA QUALITY, INTERPRETATION MAY BE ADVERSELY AFFECTED SINUS TACHYCARDIA RIGHT BUNDLE BRANCH BLOCK LEFT ANTERIOR FASCICULAR BLOCK BIFASCICULAR BLOCK NONSPECIFIC ST ABNORMALITY Confirmed by MD DIONNE, PERFECTO ([id number]) on 09/02/2018 2:50:41 PM Referred By: Confirmed By:PERFECTO TRUONG MD
[2018-09-02] MEDS: ASPIRIN 81 MG CHEWABLE TABLETS PO SCH (16:16)
--- NOTE | 2018-09-02 16:30 | PN ---
Progress Note, Physician Chief Complaint: CHF Afib COPD History of Present Illness: Others' Prescriptions Patient Name: Phong Candelario Date: 1955 Address: [address] [place] [address] Sex: Male Rx Written Rx Dispensed Drug Quantity Days Supply Prescriber Name 08/30/2018 08/30/2018 oxycodone-acetaminophen 10-325 mg tablet 120 30 InnBari hoang MD 06/19/2018 06/19/2018 oxycodone-acetaminophen 10-325 mg tab 120 30 InnBari hoang MD 06/19/2018 06/19/2018 oxycodone hcl 30 mg tablet 30 30 InnBari hoang MD 05/19/2018 05/20/2018 oxycodone hcl 30 mg tablet 30 30 InnBari hoang MD 05/19/2018 05/20/2018 oxycodone-acetaminophen 10-325 mg tablet 120 30 InnBari hoang MD 04/22/2018 04/22/2018 oxycodone-acetaminophen 10-325 mg tablet 120 30 InnabiBari MD 04/22/2018 04/22/2018 oxycodone hcl 30 mg tablet 30 30 InnBari hoang MD 03/17/2018 03/20/2018 oxycodone-acetaminophen 10-325 mg tablet 120 30 InnBari hoang MD nad mild sob on exertion family at bedside - Current Medication List Current Medications: Active Medications Albuterol Sulfate (Ventolin Hfa Inhaler -) 2 puff IH Q6H PRN PRN Reason: SHORTNESS OF BREATH Albuterol Sulfate (Ventolin 0.083% Nebulizer Soln -) 1 amp NEB Q4H PRN PRN Reason: SHORT OF BREATH/WHEEZING Last Admin: 09/02/18 00:31 Dose: 1 amp Amiodarone HCl (Cordarone -) 100 mg PO DAILY [facility] Last Admin: 09/02/18 09:45 Dose: 100 mg Aspirin (Asa -) 81 mg PO ACDIN [facility] Last Admin: 09/02/18 16:16 Dose: 81 mg Atorvastatin Calcium (Lipitor -) 40 mg PO HS [facility] Last Admin: 09/01/18 21:07 Dose: 40 mg Diltiazem HCl (Cardizem Cd -) 120 mg PO DAILY [facility] Last Admin: 09/02/18 09:44 Dose: 120 mg Fenofibric Acid (Trilipix -) 135 mg PO DAILY [facility] Last Admin: 09/02/18 10:02 Dose: 135 mg Furosemide (Lasix Injection -) 40 mg IVPUSH BID@0600,1400 [facility] Last Admin: 09/02/18 14:20 Dose: 40 mg Hyoscyamine Sulfate (Levsin Odt -) 0.125 mg PO Q6H PRN PRN Reason: ABDOMINAL PAIN Azithromycin 250 mg/ Dextrose 250 mls @ 250 mls/hr IVPB DAILY [facility] Last Admin: 09/02/18 10:02 Dose: 250 mls/hr Ceftriaxone Sodium 1 gm/ (Dextrose) 50 mls @ 100 mls/hr IVPB DAILY [facility]; Protocol Last Admin: 09/02/18 09:43 Dose: 100 mls/hr Isosorbide Mononitrate (Imdur -) 60 mg PO DAILY [facility] Last Admin: 09/02/18 10:01 Dose: 60 mg Lisinopril (Prinivil) 10 mg PO [facility] Last Admin: 09/01/18 21:12 Dose: 5 mg Methylprednisolone Sodium Succinate (Solu-Medrol -) 40 mg IVPUSH Q6H-IV [facility] Last Admin: 09/02/18 16:00 Dose: 40 mg Metoclopramide HCl (Reglan -) 5 mg PO DAILY [facility] Last Admin: 09/02/18 09:43 Dose: 5 mg Non-Formulary Medication (Beclomethasone Dipropionate [Qvar]) 2 puff IH BID [facility] Non-Formulary Medication (Linaclotide [Linzess]) 145 mcg PO BID [facility] Oxycodone HCl (Roxicodone -) 10 mg PO Q6H PRN PRN Reason: PAIN LEVEL 6-10 Last Admin: 09/02/18 15:50 Dose: 10 mg Pantoprazole Sodium (Protonix Iv) 40 mg IVPUSH DAILY [facility] Last Admin: 09/02/18 10:01 Dose: 40 mg Prasugrel (Effient -) 5 mg PO DAILY [facility] Last Admin: 09/02/18 10:01 Dose: 5 mg Ranolazine (Ranexa -) 1,000 mg PO BID [facility] Last Admin: 09/02/18 09:41 Dose: 1,000 mg Sertraline HCl (Zoloft -) 50 mg PO DAILY [facility] Last Admin: 09/02/18 09:41 Dose: 50 mg Sucralfate (Carafate -) 1 gm PO ACHS [facility] Last Admin: 09/02/18 16:16 Dose: 1 gm Tamsulosin HCl (Flomax -) 0.4 mg PO DAILY@2100 [facility] Last Admin: 09/01/18 21:07 Dose: 0.4 mg - Objective Vital Signs: Vital Signs Temperature 97.7 F 09/02/18 14:00 Pulse Rate 112 H 09/02/18 14:00 Respiratory Rate 09/02/18 14:00 Blood Pressure 99/72 09/02/18 14:00 O2 Sat by Pulse Oximetry (%) 96 09/02/18 09:00 Constitutional: Yes: Well Nourished, No Distress, Calm, Obese Cardiovascular: Yes: Tachycardia, Pulse Irregular Respiratory: Yes: Rales (BLL), SOB on Exertion Gastrointestinal: Yes: Normal Bowel Sounds, Soft, Abdomen, Obese Musculoskeletal: Yes: WNL Extremities: Yes: WNL Edema: No Peripheral Pulses WNL: Yes Neurological: Yes: Alert, Oriented Psychiatric: Yes: Alert, Oriented Labs: CBC, BMP 09/02/18 06:00 09/02/18 06:00 INR, PTT INR 2.22 (0.83-1.09) H 09/02/18 06:00 Assessment/Plan (1) Acute exacerbation of COPD with asthma Assessment/Plan: -Pulm on board -IV Solumedrol -Bronchodilators -Bipap as needed -O2 via NC -keep SpO2 >90% -Azithromycin and Ceftriaxone -CXR shows progressive congestive and infiltrative changes with enlarged heart and dense left base Code(s): J44.1 - CHRONIC OBSTRUCTIVE PULMONARY DISEASE W (ACUTE) EXACERBATION; J45.901 - UNSPECIFIED ASTHMA WITH (ACUTE) EXACERBATION (2) BPH (benign prostatic hyperplasia) Assessment/Plan: -Tamsulosin Code(s): N40.0 - BENIGN PROSTATIC HYPERPLASIA WITHOUT LOWER URINRY TRACT SYMP (3) Elevated troponin Assessment/Plan: -Trop 0.06 -repeat trop ordered -tele monitoring Code(s): R79.89 - OTHER SPECIFIED ABNORMAL FINDINGS OF BLOOD CHEMISTRY (4) GERD (gastroesophageal reflux disease) Assessment/Plan: -Pantoprazole Code(s): K21.9 - GASTRO-ESOPHAGEAL REFLUX DISEASE WITHOUT ESOPHAGITIS (5) Chest pain Assessment/Plan: -tele monitoring -cardiology on board -recently had 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 week with foundry supervisor at [place]-- requesting to be transferred to [place] Code(s): R07.9 - CHEST PAIN, UNSPECIFIED Qualifiers: Chest pain type: unspecified Qualified Code(s): R07.9 - Chest pain, unspecified (6) Atrial fibrillation Assessment/Plan: -Coumadin 3 mg po deborah -monitor INR daily -therapeutic INR goal 2-3 -Take Cardizem CD 180 mg at home, will continue home dosage Code(s): I48.91 - UNSPECIFIED ATRIAL FIBRILLATION (7) CAD (coronary artery disease) Assessment/Plan: -Aspirin and Ranexa Code(s): I25.10 - ATHSCL HEART DISEASE OF [place] CORONARY ARTERY W/O ANG PCTRS Qualifiers: (8) Chronic diastolic heart failure Assessment/Plan: -Cardiology on board -tele monitoring -1L fluid restriction -daily weights -Ranexa, Imdur -Furosemide 40 mg IVP BID Code(s): I50.32 - CHRONIC DIASTOLIC (CONGESTIVE) HEART FAILURE (9) Pneumonia Assessment/Plan: -CXR shows progressive congestive and infiltrative changes with enlarged heart and dense left base -no leukocytosis -afebrile -Azithromycin and Ceftriaxone Code(s): J18.9 - PNEUMONIA, UNSPECIFIED ORGANISM
[2018-09-02] MEDS ORDERED: dilTIAZem HCL 30 MG TABLET (FP) PO ONE (17:25)
[2018-09-02] MEDS: WARFARIN NA 3 MG TABLET PO SCH (17:33)
[2018-09-02] MEDS ORDERED: METOCLOPRAMIDE HCL 10 MG TABLET (FP) PO PRN (17:40)
[2018-09-02] MEDS ORDERED: LISINOPRIL 10 MG TABLET (FP) PO SCH (17:40)
[2018-09-02] MEDS ORDERED: WARFARIN NA 2 MG TABLET (UD) PO ONE (18:00)
[2018-09-02] MEDS: ATORVASTATIN CA 40 MG TABLET (FP) PO SCH (21:15)
[2018-09-02] MEDS: TAMSULOSIN HCL 0.4 MG CAP PO SCH (21:15)
[2018-09-02] MEDS: oxyCODONE HCL 5 MG TABLET PO SCH (21:15)
[2018-09-02] MEDS: BECLOMETHASONE DIPROPIONATE IH SCH (21:25)
[2018-09-02] MEDS: PATIENT'S OWN MEDICATION (NON-FORMULARY) (Linaclotide [Linzess] 145 MCG) PO SCH ×2 (21:25→21:26)
[2018-09-03] MEDS: methylPREDNISolone NA SUCC 40 MG/1 ML VIAL IVPUSH SCH ×4 (03:25→21:12)
[2018-09-03] MEDS: FUROSEMIDE 40 MG/4 ML INJECTABLE VIAL IVPUSH SCH (06:21)
[2018-09-03] MEDS: oxyCODONE HCL 5 MG TABLET PO PRN ×3 (06:59→18:55)
--- NOTE | 2018-09-03 06:59 | PN ---
Progress Note (short form) - Note Progress Note: Coverage for Dr. Lana Núñez Chief Complaint: Events Noted, notes reviewed, denies any chest pain, dyspnea continues to improve, Troponin I trend noted History of Present Illness: Seen and examined on telemetry. Events Noted, notes reviewed, denies any chest pain, dyspnea continues to improve, Troponin I trend noted Plan to continue medical therapy optimization and additional evaluation as per the primary cardiology team Echocardiography report noted limited study - Current Medication List Current Medications Acetaminophen (Tylenol -) 650 mg PO Q4H PRN PRN Reason: FEVER Albuterol Sulfate (Ventolin Hfa Inhaler -) 2 puff IH Q6H PRN PRN Reason: SHORTNESS OF BREATH Albuterol Sulfate (Ventolin 0.083% Nebulizer Soln -) 1 amp NEB Q4H PRN PRN Reason: SHORT OF BREATH/WHEEZING Last Admin: 09/02/18 00:31 Dose: 1 amp Amiodarone HCl (Cordarone -) 100 mg PO DAILY [facility] Last Admin: 09/02/18 09:45 Dose: 100 mg Aspirin (Asa -) 81 mg PO ACDIN [facility] Last Admin: 09/02/18 16:16 Dose: 81 mg Atorvastatin Calcium (Lipitor -) 40 mg PO HS [facility] Last Admin: 09/02/18 21:15 Dose: 40 mg Diltiazem HCl (Cardizem Cd -) 180 mg PO DAILY [facility] Fenofibric Acid (Trilipix -) 135 mg PO DAILY [facility] Furosemide (Lasix Injection -) 40 mg IVPUSH BID@0600,1400 [facility] Last Admin: 09/03/18 06:21 Dose: Not Given Hyoscyamine Sulfate (Levsin Odt -) 0.125 mg PO Q6H PRN PRN Reason: ABDOMINAL PAIN Azithromycin 250 mg/ Dextrose 250 mls @ 250 mls/hr IVPB DAILY [facility] Last Admin: 09/02/18 10:02 Dose: 250 mls/hr Ceftriaxone Sodium 1 gm/ (Dextrose) 50 mls @ 100 mls/hr IVPB DAILY [facility]; Protocol Last Admin: 09/02/18 09:43 Dose: 100 mls/hr Isosorbide Mononitrate (Imdur -) 60 mg PO DAILY [facility] Last Admin: 09/02/18 10:01 Dose: 60 mg Lisinopril (Prinivil) 5 mg PO HS [facility] Last Admin: 09/02/18 21:14 Dose: 5 mg Methylprednisolone Sodium Succinate (Solu-Medrol -) 40 mg IVPUSH Q6H-IV [facility] Last Admin: 09/03/18 03:25 Dose: 40 mg Metoclopramide HCl (Reglan -) 5 mg PO TIDAC PRN PRN Reason: NAUSEA Non-Formulary Medication (Patient's Own Med) 1 each PO DAILY [facility] Oxycodone HCl (Roxicodone -) 30 mg PO [facility] Last Admin: 09/02/18 21:15 Dose: 30 mg Oxycodone HCl (Roxicodone -) 10 mg PO 0600,1000,1400,1800 PRN PRN Reason: PAIN LEVEL 6-10 Pantoprazole Sodium (Protonix Iv) 40 mg IVPUSH DAILY [facility] Last Admin: 09/02/18 10:01 Dose: 40 mg Prasugrel (Effient -) 5 mg PO DAILY [facility] Last Admin: 09/02/18 10:01 Dose: 5 mg Ranitidine HCl (Zantac -) 150 mg PO DAILY [facility] Ranolazine (Ranexa -) 1,000 mg PO BID [facility] Last Admin: 09/02/18 21:14 Dose: 1,000 mg Sertraline HCl (Zoloft -) 50 mg PO DAILY [facility] Last Admin: 09/02/18 09:41 Dose: 50 mg Sucralfate (Carafate -) 1 gm PO BID [facility] Last Admin: 09/02/18 21:14 Dose: 1 gm Tamsulosin HCl (Flomax -) 0.4 mg PO [facility] Last Admin: 09/02/18 21:15 Dose: 0.4 mg Warfarin Sodium (Coumadin -) 3 mg PO DAILY@1800 [facility] Last Admin: 09/02/18 17:33 Dose: 3 mg Review of Systems Cardiovascular: As noted above Respiratory: denies Cough or Sputum Production Gastrointestinal: denies: Nausea, Vomiting, Diarrhea, Constipation or Abdominal Discomfort Musculoskeletal: No Symptoms Reported - Objective Vital Signs: Last Vital Signs Temp Pulse Resp BP Pulse Ox 97.9 F 101 H 20 93/70 97 09/03/18 05:51 09/03/18 05:51 09/03/18 05:51 09/03/18 05:51 09/02/18 21:00 Intake & Output 07/0409/01/18 09/02/18 09/03/18 23:59 23:59 23:59 23:59 Intake Total 825 550 Output Total 2250 Balance -1425 550 Weight 245 lb 251 lb 12.8 oz Constitutional: No Distress, Calm Neck: Supple Negative JVD No Bruit Respiratory: Clear to A&P Cardiovascular: S1 S2 Regular Rate Rhythm Grade 2/6 JOSÉ LUIS Gastrointestinal: Soft Benign Normal Bowel Sounds Ext: Negative Edema Labs: CBC, BMP 09/03/18 05:40 09/03/18 05:40 Hepatic Panel Total Bilirubin 0.6 mg/dL (0.2-1) 09/02/18 06:00 AST 15 U/L (15-37) 09/02/18 06:00 ALT 19 U/L (13-61) 09/02/18 06:00 Alkaline Phosphatase 33 U/L (45-117) L 09/02/18 06:00 Albumin 3.8 g/dl (3.4-5.0) 09/02/18 06:00 INR, PTT INR 2.25 (0.83-1.09) H 09/03/18 05:40 ASSESSMENT: 1. CAD post PCI/stent with evidence of demand ischemic injury angina pectoris 2. Diastolic LV dysfunction with class 0-I NYHA classification LV failure, clinically compensated 3. PAF [id number] score of 4 on A/C with Coumadin 4. Aortic stenosis 5. HTN 6. Hypercholesterolemia 7. COPD exacerbation, resolved 8. GERD PLAN: 1. Continue Coumadin as per INR and close monitoring of CBC 2. Continue ASA and Effient with caution, but preferably a single agent should be continued in view of concomitant Coumadin administration (higher bleed risk) 3. Continue Amiodarone 4. Continue Cardizem CD but ideally B-Blockers should be added unless contraindicated 5. Continue Imdur and Ranexa 6. Continue Lisinopril 7. Continue Lipitor and Trilipix 8. Continue Lasix but change to PO 9. As outlined above further intervention as planned by the primary cardiology team/Dr. Lana Sinclair M.D.
[2018-09-03] MEDS: ACETAMINOPHEN 325 MG TABLET (FP) PO PRN ×2 (07:01→16:36)
[2018-09-03 07:32] LABS: HEMATOCRIT 37.4 % (35.4-49); HEMOGLOBIN 12.1 GM/dL (11.7-16.9); LYMPH % 3.5 % (8-40); MCH 26.7 pg (25.7-33.7); MCHC 32.2 g/dl (32.0-35.9); MEAN CELL VOLUME 82.9 fl (80-96); MEAN PLT VOLUME 8.1 fl (7.5-11.1); MONO % 1.7 % (3.8-10.2); NEUT % 94.8 % (42.8-82.8); PLATELET COUNT 271 K/MM3 (134-434); RBC 4.52 M/mm3 (4.00-5.60); RDW 14.6 % (11.9-15.9); WHITE BLOOD COUNT 12.6 K/mm3 (4.0-10.0)
[2018-09-03 07:36] LABS: INR 2.25 (0.83-1.09); PROTHROMBIN TIME (PATIENT) 26.8 SEC (9.7-13.0)
[2018-09-03 07:39] LABS: ALBUMIN 3.7 g/dl (3.4-5.0); BILIRUBIN,TOTAL 0.5 mg/dL (0.2-1); BLOOD UREA NITROGEN 28.3 mg/dL (7-18); CREATININE 1.1 mg/dL (0.55-1.3); POTASSIUM 3.7 mmol/L (3.5-5.1); TOT PROT 6.8 g/dl (6.4-8.2)
--- NOTE | 2018-09-03 08:49 | PN ---
Progress Note (short form) - Note Progress Note: PULMONARY AWAKE/ALERT OFFERS NO COMPLAINTS EATING BREAKFAST VSS/AFEBRILE ANICTERIC CLEAR BILATERALLY S1S2 SYST MURMUR BS+ OBESE NO EDEMA LABS/MEDS/CARDIO/XRAYS/NOTES REVIEWED ECHO WAS TECHNICALLY DIFFICULT TROPS X2 ELEVATED Acute hypercapneic hypoxemic resp failure resolved Likely due to acute pulmonary edema doubt A/E copd or acute pneumonia given presenting symptoms Patient did respond to BIPAP/diuretic trial Monitor trops/EKG/Cardio f/u/CXR continue supplemental o2/NIPPV as required/bronchodilators prn Patient requesting transfer to [place] continue Tele monitoring R LYN GUADALUPE Problem List - Problems (1) Chest pain Code(s): R07.9 - CHEST PAIN, UNSPECIFIED Qualifiers: Chest pain type: unspecified Qualified Code(s): R07.9 - Chest pain, unspecified (2) Elevated troponin Code(s): R79.89 - OTHER SPECIFIED ABNORMAL FINDINGS OF BLOOD CHEMISTRY (3) GERD (gastroesophageal reflux disease) Code(s): K21.9 - GASTRO-ESOPHAGEAL REFLUX DISEASE WITHOUT ESOPHAGITIS (4) Acute exacerbation of CHF (congestive heart failure) Code(s): I50.9 - HEART FAILURE, UNSPECIFIED (5) Aortic stenosis Code(s): I35.0 - NONRHEUMATIC AORTIC (VALVE) STENOSIS (6) CAD (coronary artery disease) Code(s): I25.10 - ATHSCL HEART DISEASE OF [place] CORONARY ARTERY W/O ANG PCTRS (7) Dyspnea Code(s): R06.00 - DYSPNEA, UNSPECIFIED (8) Obstructive sleep apnea Code(s): G47.33 - OBSTRUCTIVE SLEEP APNEA (ADULT) (PEDIATRIC) (9) PAF (paroxysmal atrial fibrillation) Code(s): I48.0 - PAROXYSMAL ATRIAL FIBRILLATION
[2018-09-03] MEDS ORDERED: PT OWN MED DRAWER 7, Y5N ONE ×3 (09:48→21:01)
[2018-09-03] MEDS: AMIODARONE HCL 200 MG TABLET (FP) PO SCH (09:58)
[2018-09-03] MEDS: RANOLAZINE E.R. 1,000 MG TABLET (FP) PO SCH ×2 (09:58→21:15)
[2018-09-03] MEDS: ISOSORBIDE MONONITRATE 60 MG TAB.SR.24H (FP) PO SCH (09:58)
[2018-09-03] MEDS: FUROSEMIDE 40 MG TABLET (FP) PO SCH (09:58)
[2018-09-03] MEDS: AZITHROMYCIN IVPB 250 MG in DEXTROSE 5%-WATER - 250 ML IVPB SCH (09:59)
[2018-09-03] MEDS: SUCRALFATE 1 GM TABLET (FP) PO SCH ×2 (09:59→21:13)
[2018-09-03] MEDS: SERTRALINE HCL 50 MG TABLET (FP) PO SCH (09:59)
[2018-09-03] MEDS ORDERED: FUROSEMIDE 40 MG TABLET (FP) PO SCH (10:00)
[2018-09-03] MEDS: PANTOPRAZOLE SODIUM 40 MG VIAL IVPUSH SCH (10:01)
[2018-09-03] MEDS: FENOFIBRIC ACID 135 MG CAP PO SCH (10:02)
[2018-09-03 11:45] LABS: ANISOCYTOSIS 2+; MACROCYTOSIS 0; OVALOCYTE 1+; PLATELET ESTIMATE NORMAL
[2018-09-03] MEDS: RANITIDINE HCL 150 MG TABLET (FP) PO SCH (11:53)
--- NOTE | 2018-09-03 12:01 | PN ---
Progress Note, Physician Chief Complaint: CHF Afib COPD History of Present Illness: Others' Prescriptions Patient Name: Phong Candelario Date: 1955 Address: [address] [place] [address] Sex: Male Rx Written Rx Dispensed Drug Quantity Days Supply Prescriber Name 08/30/2018 08/30/2018 oxycodone-acetaminophen 10-325 mg tablet 120 30 InnBari hoang MD 06/19/2018 06/19/2018 oxycodone-acetaminophen 10-325 mg tab 120 30 InnBari hoang MD 06/19/2018 06/19/2018 oxycodone hcl 30 mg tablet 30 30 InnBari hoang MD 05/19/2018 05/20/2018 oxycodone hcl 30 mg tablet 30 30 InnBari hoang MD 05/19/2018 05/20/2018 oxycodone-acetaminophen 10-325 mg tablet 120 30 InnBari hoang MD 04/22/2018 04/22/2018 oxycodone-acetaminophen 10-325 mg tablet 120 30 InnabiBari MD 04/22/2018 04/22/2018 oxycodone hcl 30 mg tablet 30 30 InnBari hoang MD 03/17/2018 03/20/2018 oxycodone-acetaminophen 10-325 mg tablet 120 30 InnBari hoang MD nad mild sob on exertion family at bedside Troponin trend noted, pt denies any CP, SOB is improving Seen by Cardiology - Current Medication List Current Medications: Active Medications Acetaminophen (Tylenol -) 650 mg PO Q4H PRN PRN Reason: FEVER Last Admin: 09/03/18 07:01 Dose: 650 mg Albuterol Sulfate (Ventolin Hfa Inhaler -) 2 puff IH Q6H PRN PRN Reason: SHORTNESS OF BREATH Albuterol Sulfate (Ventolin 0.083% Nebulizer Soln -) 1 amp NEB Q4H PRN PRN Reason: SHORT OF BREATH/WHEEZING Last Admin: 09/02/18 00:31 Dose: 1 amp Amiodarone HCl (Cordarone -) 100 mg PO DAILY [facility] Last Admin: 09/03/18 09:58 Dose: 100 mg Aspirin (Asa -) 81 mg PO ACDIN [facility] Last Admin: 09/02/18 16:16 Dose: 81 mg Atorvastatin Calcium (Lipitor -) 40 mg PO HS [facility] Last Admin: 09/02/18 21:15 Dose: 40 mg Diltiazem HCl (Cardizem Cd -) 180 mg PO DAILY [facility] Last Admin: 09/03/18 10:17 Dose: 180 mg Fenofibric Acid (Trilipix -) 135 mg PO DAILY [facility] Last Admin: 09/03/18 10:02 Dose: 135 mg Furosemide (Lasix -) 40 mg PO DAILY [facility] Last Admin: 09/03/18 09:58 Dose: 40 mg Hyoscyamine Sulfate (Levsin Odt -) 0.125 mg PO Q6H PRN PRN Reason: ABDOMINAL PAIN Azithromycin 250 mg/ Dextrose 250 mls @ 250 mls/hr IVPB DAILY [facility] Last Admin: 09/03/18 09:59 Dose: 250 mls/hr Ceftriaxone Sodium 1 gm/ (Dextrose) 50 mls @ 100 mls/hr IVPB DAILY [facility]; Protocol Last Admin: 09/02/18 09:43 Dose: 100 mls/hr Isosorbide Mononitrate (Imdur -) 60 mg PO DAILY [facility] Last Admin: 09/03/18 09:58 Dose: 60 mg Lisinopril (Prinivil) 5 mg PO HS [facility] Methylprednisolone Sodium Succinate (Solu-Medrol -) 40 mg IVPUSH Q6H-IV [facility] Last Admin: 09/03/18 09:53 Dose: 40 mg Metoclopramide HCl (Reglan -) 5 mg PO TIDAC PRN PRN Reason: NAUSEA Non-Formulary Medication (Patient's Own Med) 1 each PO DAILY [facility] Oxycodone HCl (Roxicodone -) 30 mg PO HS [facility] Last Admin: 09/02/18 21:15 Dose: 30 mg Oxycodone HCl (Roxicodone -) 10 mg PO 0600,1000,1400,1800 PRN PRN Reason: PAIN LEVEL 6-10 Last Admin: 09/03/18 06:59 Dose: 10 mg Pantoprazole Sodium (Protonix Iv) 40 mg IVPUSH DAILY [facility] Last Admin: 09/03/18 10:01 Dose: 40 mg Prasugrel (Effient -) 5 mg PO DAILY [facility] Last Admin: 09/02/18 10:01 Dose: 5 mg Ranitidine HCl (Zantac -) 150 mg PO DAILY [facility] Last Admin: 09/03/18 11:53 Dose: 150 mg Ranolazine (Ranexa -) 1,000 mg PO BID [facility] Last Admin: 09/03/18 09:58 Dose: 1,000 mg Sertraline HCl (Zoloft -) 50 mg PO DAILY [facility] Last Admin: 09/03/18 09:59 Dose: 50 mg Sucralfate (Carafate -) 1 gm PO BID [facility] Last Admin: 09/03/18 09:59 Dose: 1 gm Tamsulosin HCl (Flomax -) 0.4 mg PO [facility] Last Admin: 09/02/18 21:15 Dose: 0.4 mg Warfarin Sodium (Coumadin -) 3 mg PO DAILY@1800 [facility] Last Admin: 09/02/18 17:33 Dose: 3 mg - Objective Vital Signs: Vital Signs Temperature 97.1 F L 09/03/18 10:00 Pulse Rate 112 H 09/03/18 10:00 Respiratory Rate 20 09/03/18 10:00 Blood Pressure 118/77 09/03/18 10:00 O2 Sat by Pulse Oximetry (%) 97 09/03/18 09:00 Constitutional: Yes: Well Nourished, No Distress, Calm, Obese Cardiovascular: Yes: Regular Rate and Rhythm Respiratory: Yes: Regular, Rales (BLL) Gastrointestinal: Yes: Normal Bowel Sounds, Soft, Abdomen, Obese Genitourinary: Yes: WNL Musculoskeletal: Yes: WNL Extremities: Yes: WNL Edema: No Peripheral Pulses WNL: Yes Neurological: Yes: Alert, Oriented Psychiatric: Yes: Alert, Oriented Labs: CBC, BMP 09/03/18 05:40 09/03/18 05:40 INR, PTT INR 2.25 (0.83-1.09) H 09/03/18 05:40 Assessment/Plan (1) Acute exacerbation of COPD with asthma Assessment/Plan: -Pulm on board -IV Solumedrol -Bronchodilators -Bipap as needed -O2 via NC -keep SpO2 >90% -Azithromycin and Ceftriaxone -CXR shows progressive congestive and infiltrative changes with enlarged heart and dense left base Code(s): J44.1 - CHRONIC OBSTRUCTIVE PULMONARY DISEASE W (ACUTE) EXACERBATION; J45.901 - UNSPECIFIED ASTHMA WITH (ACUTE) EXACERBATION (2) BPH (benign prostatic hyperplasia) Assessment/Plan: -Tamsulosin Code(s): N40.0 - BENIGN PROSTATIC HYPERPLASIA WITHOUT LOWER URINRY TRACT SYMP (3) Elevated troponin Assessment/Plan: -Trop 0.06 -repeat trop ordered -tele monitoring Code(s): R79.89 - OTHER SPECIFIED ABNORMAL FINDINGS OF BLOOD CHEMISTRY (4) GERD (gastroesophageal reflux disease) Assessment/Plan: -Pantoprazole Code(s): K21.9 - GASTRO-ESOPHAGEAL REFLUX DISEASE WITHOUT ESOPHAGITIS (5) Chest pain Assessment/Plan: -tele monitoring -cardiology on board -recently had 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 week with emergency medicine physician at [place]-- requesting to be transferred to [place] Code(s): R07.9 - CHEST PAIN, UNSPECIFIED Qualifiers: Chest pain type: unspecified Qualified Code(s): R07.9 - Chest pain, unspecified (6) Atrial fibrillation Assessment/Plan: -Coumadin 3 mg po deborah -monitor INR daily -therapeutic INR goal 2-3 -Take Cardizem CD 180 mg at home, will continue home dosage Code(s): I48.91 - UNSPECIFIED ATRIAL FIBRILLATION (7) CAD (coronary artery disease) Assessment/Plan: -Aspirin and Ranexa Code(s): I25.10 - ATHSCL HEART DISEASE OF [place] CORONARY ARTERY W/O ANG PCTRS Qualifiers: (8) Chronic diastolic heart failure Assessment/Plan: -Cardiology on board -tele monitoring -1L fluid restriction -daily weights -Ranexa, Imdur -Furosemide 40 mg IVP BID Code(s): I50.32 - CHRONIC DIASTOLIC (CONGESTIVE) HEART FAILURE (9) Pneumonia Assessment/Plan: -CXR shows progressive congestive and infiltrative changes with enlarged heart and dense left base -no leukocytosis -afebrile -Azithromycin and Ceftriaxone -Bronchodilators -Pulmonary on board Code(s): J18.9 - PNEUMONIA, UNSPECIFIED ORGANISM
[2018-09-03] MEDS: PRASUGREL HCL 5 MG TAB PO SCH (12:46)
[2018-09-03] MEDS: CEFTRIAXONE 1 GM in DEXTROSE 5%-WATER - 50 ML IVPB SCH (12:46)
[2018-09-03] MEDS: ASPIRIN 81 MG CHEWABLE TABLETS PO SCH (16:36)
[2018-09-03] MEDS: WARFARIN NA 3 MG TABLET PO SCH (17:40)
[2018-09-03] MEDS: ATORVASTATIN CA 40 MG TABLET (FP) PO SCH (21:13)
[2018-09-03] MEDS: LISINOPRIL 5 MG TABLET (FP) PO SCH (21:13)
[2018-09-03] MEDS: TAMSULOSIN HCL 0.4 MG CAP PO SCH (21:13)
[2018-09-03] MEDS: oxyCODONE HCL 5 MG TABLET PO SCH (21:14)
[2018-09-03] MEDS: ALBUTEROL SO4 0.083% IH SOL 2.5 MG/3 ML VIAL.NEB. NEB PRN (22:04)
[2018-09-04] MEDS: methylPREDNISolone NA SUCC 40 MG/1 ML VIAL IVPUSH SCH ×3 (02:38→21:49)
[2018-09-04] MEDS: oxyCODONE HCL 5 MG TABLET PO PRN ×4 (05:59→18:53)
[2018-09-04 06:45] LABS: INR 3.09 (0.83-1.09); PROTHROMBIN TIME (PATIENT) 36.9 SEC (9.7-13.0)
[2018-09-04 06:49] LABS: ALBUMIN 3.6 g/dl (3.4-5.0); BILIRUBIN,TOTAL 0.4 mg/dL (0.2-1); BLOOD UREA NITROGEN 27.9 mg/dL (7-18); CALCIUM 8.7 mg/dL (8.5-10.1); POTASSIUM 3.8 mmol/L (3.5-5.1); TOT PROT 6.7 g/dl (6.4-8.2)
--- NOTE | 2018-09-04 08:06 | PN ---
Progress Note, Physician - Current Medication List Current Medications: Active Medications Acetaminophen (Tylenol -) 650 mg PO Q4H PRN PRN Reason: FEVER Last Admin: 09/03/18 16:36 Dose: 650 mg Albuterol Sulfate (Ventolin Hfa Inhaler -) 2 puff IH Q6H PRN PRN Reason: SHORTNESS OF BREATH Albuterol Sulfate (Ventolin 0.083% Nebulizer Soln -) 1 amp NEB Q4H PRN PRN Reason: SHORT OF BREATH/WHEEZING Last Admin: 09/03/18 22:04 Dose: 1 amp Amiodarone HCl (Cordarone -) 100 mg PO DAILY [facility] Last Admin: 09/03/18 09:58 Dose: 100 mg Aspirin (Asa -) 81 mg PO ACDIN [facility] Last Admin: 09/03/18 16:36 Dose: 81 mg Atorvastatin Calcium (Lipitor -) 40 mg PO HS [facility] Last Admin: 09/03/18 21:13 Dose: 40 mg Diltiazem HCl (Cardizem Cd -) 180 mg PO DAILY [facility] Last Admin: 09/03/18 10:17 Dose: 180 mg Fenofibric Acid (Trilipix -) 135 mg PO DAILY [facility] Last Admin: 09/03/18 10:02 Dose: 135 mg Furosemide (Lasix -) 40 mg PO DAILY [facility] Last Admin: 09/03/18 09:58 Dose: 40 mg Hyoscyamine Sulfate (Levsin Odt -) 0.125 mg PO Q6H PRN PRN Reason: ABDOMINAL PAIN Azithromycin 250 mg/ Dextrose 250 mls @ 250 mls/hr IVPB DAILY [facility] Last Admin: 09/03/18 09:59 Dose: 250 mls/hr Ceftriaxone Sodium 1 gm/ (Dextrose) 50 mls @ 100 mls/hr IVPB DAILY [facility]; Protocol Last Admin: 09/03/18 12:46 Dose: 100 mls/hr Isosorbide Mononitrate (Imdur -) 60 mg PO DAILY [facility] Last Admin: 09/03/18 09:58 Dose: 60 mg Lisinopril (Prinivil) 5 mg PO HS [facility] Last Admin: 09/03/18 21:13 Dose: 5 mg Methylprednisolone Sodium Succinate (Solu-Medrol -) 40 mg IVPUSH Q6H-IV [facility] Last Admin: 09/04/18 02:38 Dose: 40 mg Metoclopramide HCl (Reglan -) 5 mg PO TIDAC PRN PRN Reason: NAUSEA Non-Formulary Medication (Patient's Own Med) 1 each PO DAILY [facility] Oxycodone HCl (Roxicodone -) 30 mg PO [facility] Last Admin: 09/03/18 21:14 Dose: 30 mg Oxycodone HCl (Roxicodone -) 10 mg PO 0600,1000,1400,1800 PRN PRN Reason: PAIN LEVEL 6-10 Last Admin: 09/04/18 05:59 Dose: 10 mg Pantoprazole Sodium (Protonix Iv) 40 mg IVPUSH DAILY [facility] Last Admin: 09/03/18 10:01 Dose: 40 mg Prasugrel (Effient -) 5 mg PO DAILY [facility] Last Admin: 09/03/18 12:46 Dose: 5 mg Ranitidine HCl (Zantac -) 150 mg PO DAILY [facility] Last Admin: 09/03/18 11:53 Dose: 150 mg Ranolazine (Ranexa -) 1,000 mg PO BID [facility] Last Admin: 09/03/18 21:15 Dose: 1,000 mg Sertraline HCl (Zoloft -) 50 mg PO DAILY [facility] Last Admin: 09/03/18 09:59 Dose: 50 mg Sucralfate (Carafate -) 1 gm PO BID [facility] Last Admin: 09/03/18 21:13 Dose: 1 gm Tamsulosin HCl (Flomax -) 0.4 mg PO [facility] Last Admin: 09/03/18 21:13 Dose: 0.4 mg Warfarin Sodium (Coumadin -) 3 mg PO DAILY@1800 [facility] Last Admin: 09/03/18 17:40 Dose: 3 mg - Objective Vital Signs: Vital Signs Temperature 98.7 F 09/04/18 06:00 Pulse Rate 105 H 09/04/18 06:00 Respiratory Rate 18 09/04/18 06:00 Blood Pressure 129/80 09/04/18 06:00 O2 Sat by Pulse Oximetry (%) 96 09/03/18 21:00 Cardiovascular: Yes: Murmur, S1, S2 Respiratory: Yes: Regular, CTA Bilaterally Gastrointestinal: Yes: Normal Bowel Sounds, Soft Labs: CBC, BMP 09/03/18 05:40 09/04/18 05:30 INR, PTT INR 3.09 (0.83-1.09) H 09/04/18 05:30 Assessment/Plan (1) Acute exacerbation of COPD with asthma Assessment/Plan: -Pulm on board -IV Solumedrol--TO BID -Bronchodilators -Bipap as needed -O2 via NC -keep SpO2 >90% -Azithromycin and Ceftriaxone--ID CONSULT -CXR shows progressive congestive and infiltrative changes with enlarged heart and dense left base Code(s): J44.1 - CHRONIC OBSTRUCTIVE PULMONARY DISEASE W (ACUTE) EXACERBATION; J45.901 - UNSPECIFIED ASTHMA WITH (ACUTE) EXACERBATION (2) BPH (benign prostatic hyperplasia) Assessment/Plan: -Tamsulosin Code(s): N40.0 - BENIGN PROSTATIC HYPERPLASIA WITHOUT LOWER URINRY TRACT SYMP (3) Elevated troponin Assessment/Plan: -Trop 0.06--2.6--REPEAT -repeat trop ordered -tele monitoring Code(s): R79.89 - OTHER SPECIFIED ABNORMAL FINDINGS OF BLOOD CHEMISTRY (4) GERD (gastroesophageal reflux disease) Assessment/Plan: -Pantoprazole Code(s): K21.9 - GASTRO-ESOPHAGEAL REFLUX DISEASE WITHOUT ESOPHAGITIS (5) Chest pain Assessment/Plan: -tele monitoring -cardiology on board -recently had 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 week 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 [place]-- requesting to be transferred to [place] Code(s): R07.9 - CHEST PAIN, UNSPECIFIED Qualifiers: Chest pain type: unspecified Qualified Code(s): R07.9 - Chest pain, unspecified (6) Atrial fibrillation Assessment/Plan: -Coumadin 3 mg po daily -monitor INR daily -therapeutic INR goal 2-3 -Take Cardizem CD 180 mg at home, will continue home dosage Code(s): I48.91 - UNSPECIFIED ATRIAL FIBRILLATION (7) CAD (coronary artery disease) Assessment/Plan: -Aspirin and Ranexa Code(s): I25.10 - ATHSCL HEART DISEASE OF [place] CORONARY ARTERY W/O ANG PCTRS Qualifiers: (8) Chronic diastolic heart failure Assessment/Plan: -Cardiology on board -tele monitoring -1L fluid restriction -daily weights -Ranexa, Imdur -Furosemide 40 mg IVP BID Code(s): I50.32 - CHRONIC DIASTOLIC (CONGESTIVE) HEART FAILURE (9) Pneumonia Assessment/Plan: -CXR shows progressive congestive and infiltrative changes with enlarged heart and dense left base -no leukocytosis -afebrile -Azithromycin and Ceftriaxone--ID consult -cxr -Bronchodilators -Pulmonary on board Code(s): J18.9 - PNEUMONIA, UNSPECIFIED ORGANISM
--- NOTE | 2018-09-04 09:53 | CON.ID ---
Consult Consult Specialty:: infectious disease Referred by:: precious Reason for Consultation:: pneumonia - History of Present Illness Chief Complaint: sob, chest pain History of Present Illness: 63 yo man with CAD has multiple stents, s/p recent cardiac cath end of July- at [place] with no new stents placed admitted 09/01 with chest pain and SOB- cath also shows aortic stenosis- he is being evaluated for TAVR post cath he has been taking his lasix, his cardizem dose was increased to 180 mg from 120 mg after the cardiac cath noted he had gained almost 10 pounds when he got to the hospital no fevers no cough +SOB on admission +chest pain on admission all has resolved overall feels better- off oxygen has been on iv lasix and steroids he was started on ceftriaxone and zithromax on 09/01 as well (now day #3) no recent travel went to [place] last year no sick contacts no recent hospitalizations - History Source History Provided By: Patient, Medical Record Limitations to Obtaining History: No Limitations - Past Medical History 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 Cardio/Vascular: Yes: AFIB, Aortic Insufficiency, Aortic Stenosis, CAD, CHF ( chronic diastolic), HTN, Hyperlipdemia, [place], Other ([place]) Pulmonary: Yes: COPD, Sleep Apnea Gastrointestinal: Yes: GERD Hepatobiliary: No: Cirrhosis Renal/: No: Renal Failure Psych: Yes: Anxiety, Depression Musculoskeletal: Yes: Chronic low back pain - Past Surgical History Past Surgical History: Yes: Stent (Multiple cardiac stents; pulmonary vein ablation Rx x 2 for AF/flutter) Additional Surgical History: cardiac ablation 2013 - Alcohol/Substance Use Hx Alcohol Use: No History of Substance Use: reports: None - Smoking History Smoking history: Former smoker Have you smoked in the past 12 months: No Aproximately how many cigarettes per day: 0 If you are a former smoker, when did you quit?: 1997 - Social History Usual Living Arrangement: With Spouse ADL: Independent Place of : Other ([place]) History of Recent Travel: No Home Medications - Allergies Allergies/Adverse Reactions: Allergies Allergy/AdvReac Type Severity Reaction Status Date / Time levofloxacin [From Levaquin] Allergy Intermediate Swelling Verified 08/31/18 23: 56 - Home Medications Home Medications: Ambulatory Orders Albuterol Sulfate [Proair Respiclick] 90 mcg IH PRN 08/22/16 Aspirin [ASA -] 81 mg PO ACDIN 08/22/16 Diltiazem HCl [Diltiazem 24Hr ER] 120 mg PO DAILY 08/22/16 Linaclotide [Linzess] 145 mcg PO BID 08/22/16 Lisinopril 5 mg PO HS 08/22/16 Nitroglycerin [place] [Nitrolingual [place] -] 1 spray TL PRN PRN 08/22/16 Ranolazine [Ranexa] 1,000 mg PO BID 08/22/16 Beclomethasone Dipropionate [Qvar] 2 puff IH BID 01/16/17 Hyoscyamine Sulfate 0.125 mg PO ASDIR PRN 03/27/17 Omeprazole 40 mg PO DAILY 03/27/17 Sucralfate [Carafate] 1 gm PO BID 07/14/17 Tiotropium Br/Olodaterol HCl [Stiolto Respimat Inhal [place]] 2.5 gm IH DAILY Amiodarone HCl [Cordarone -] 100 mg PO DAILY tablet 07/21/17 Prasugrel Hydrochloride [Effient -] 5 mg PO DAILY tab 07/21/17 Ranitidine [Zantac -] 150 mg PO DAILY tablet 07/21/17 Sertraline HCl [Zoloft -] 50 mg PO DAILY tablet 07/21/17 Sucralfate [Carafate -] 1 gm PO QID tablet 07/21/17 Tamsulosin HCl [Flomax -] 0.4 mg PO DAILY@0830 cap.er.24h 07/21/17 oxyCODONE HCL [Roxicodone -] 30 mg PO HS PRN tablet MDD 1 07/21/17 Albuterol 0.083% Nebulizer [place] [Ventolin 0.083% Nebulizer Soln -] 1 amp NEB PRN 09/01/18 Atorvastatin Ca [Lipitor] 40 mg PO HS 09/01/18 Ergocalciferol (Vitamin D2) [Vitamin D2] 50,000 unit PO DAILY 09/01/18 Fenofibric Acid [Trilipix -] 105 mg PO DAILY 09/01/18 Isosorbide Mononitrate [Imdur -] 60 mg PO DAILY 09/01/18 Isosorbide Mononitrate [Isosorbide Mononitrate ER] 60 mg PO DAILY 09/01/18 Metoclopramide HCl 5 mg PO DAILY 09/01/18 Ranolazine [Ranexa -] 1,000 mg PO BID 09/01/18 Warfarin Na [Coumadin -] 3 mg PO DAILY@1800 09/01/18 Family Disease History - Family Disease History Family Disease History: Heart Disease: Brother Review of Systems - Review of Systems Constitutional: reports: No Symptoms. denies: Chills, Diaphoresis, Fever Eyes: reports: No Symptoms HENT: reports: No Symptoms. denies: Difficult Swallowing Neck: reports: No Symptoms Cardiovascular: reports: Chest Pain. denies: Edema Respiratory: reports: SOB Gastrointestinal: reports: No Symptoms. denies: Abdominal Pain Genitourinary: reports: No Symptoms. denies: Burning, Dysuria, Flank Pain Integumentary: reports: No Symptoms Neurological: reports: No Symptoms Physical Exam Vital Signs: Vital Signs Temperature 98.7 F 09/04/18 06:00 Pulse Rate 105 H 09/04/18 06:00 Respiratory Rate 18 09/04/18 06:00 Blood Pressure 129/80 09/04/18 06:00 O2 Sat by Pulse Oximetry (%) 96 09/03/18 21:00 Constitutional: Yes: Well Nourished, No Distress, Calm Eyes: Yes: Conjunctiva Clear HENT: Yes: Atraumatic, Normocephalic Neck: Yes: Supple Cardiovascular: Yes: Regular Rate and Rhythm Respiratory: Yes: Regular, CTA Bilaterally, Diminished (at bases) Gastrointestinal: Yes: Normal Bowel Sounds, Abdomen, Obese ...Rectal Exam: Yes: Deferred Extremities: Yes: WNL Edema: No Neurological: Yes: Alert, Oriented Labs: CBC, BMP 09/03/18 05:40 09/04/18 05:30 Imaging - Results Chest X-ray: Report Reviewed, Image Reviewed (cxray imlproving congestion from admission) Problem List - Problems (1) Acute exacerbation of CHF (congestive heart failure) Code(s): I50.9 - HEART FAILURE, UNSPECIFIED (2) COPD exacerbation Code(s): J44.1 - CHRONIC OBSTRUCTIVE PULMONARY DISEASE W (ACUTE) EXACERBATION (3) Elevated troponin Code(s): R79.89 - OTHER SPECIFIED ABNORMAL FINDINGS OF BLOOD CHEMISTRY (4) Aortic stenosis Code(s): I35.0 - NONRHEUMATIC AORTIC (VALVE) STENOSIS Assessment/Plan suspect this is CHF exacerbation, ?copdexacerbation- he has improved markedly since admission and is sitting in his room off oxygen and is quite comfortable cxray ilmproved as well doubt pneumonia he has received 3 days of rocephin/zithromax suspect leukocytosis is due to steroids would d/c antiibotics 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
[2018-09-04] MEDS: AMIODARONE HCL 200 MG TABLET (FP) PO SCH (10:18)
[2018-09-04] MEDS: FUROSEMIDE 40 MG TABLET (FP) PO SCH (10:22)
[2018-09-04] MEDS: ISOSORBIDE MONONITRATE 60 MG TAB.SR.24H (FP) PO SCH (10:22)
[2018-09-04] MEDS: RANOLAZINE E.R. 1,000 MG TABLET (FP) PO SCH ×2 (10:23→21:50)
[2018-09-04] MEDS: PANTOPRAZOLE SODIUM 40 MG VIAL IVPUSH SCH (10:23)
[2018-09-04] MEDS: SERTRALINE HCL 50 MG TABLET (FP) PO SCH (10:24)
[2018-09-04] MEDS: RANITIDINE HCL 150 MG TABLET (FP) PO SCH (10:24)
[2018-09-04] MEDS ORDERED: PT OWN MED DRAWER 7, Y5N ONE ×2 (12:28→21:45)
[2018-09-04] MEDS: PRASUGREL HCL 5 MG TAB PO SCH (12:46)
[2018-09-04] MEDS: SUCRALFATE 1 GM TABLET (FP) PO SCH ×2 (12:46→21:49)
[2018-09-04] MEDS: FENOFIBRIC ACID 135 MG CAP PO SCH (12:46)
--- NOTE | 2018-09-04 13:00 | PN ---
Progress Note (short form) - Note Progress Note: OOB to chair. Reports breathing is better. Some dry cough. Intake & Output 09/01/18 09/02/18 09/03/18 09/04/18 23:59 23:59 23:59 23:59 Intake Total 479 321 3287 150 Output Total 2250 Balance -7798 372 3665 150 Weight 251 lb 12.8 oz 245 lb 246 lb Last Vital Signs Temp Pulse Resp BP Pulse Ox 98.7 F 116 H 18 131/80 96 09/04/18 06:00 09/04/18 09:58 09/04/18 09:58 09/04/18 09:58 09/03/18 21:00 Active Medications Acetaminophen (Tylenol -) 650 mg PO Q4H PRN PRN Reason: FEVER Last Admin: 09/03/18 16:36 Dose: 650 mg Albuterol Sulfate (Ventolin Hfa Inhaler -) 2 puff IH Q6H PRN PRN Reason: SHORTNESS OF BREATH Albuterol Sulfate (Ventolin 0.083% Nebulizer Soln -) 1 amp NEB Q4H PRN PRN Reason: SHORT OF BREATH/WHEEZING Last Admin: 09/03/18 22:04 Dose: 1 amp Amiodarone HCl (Cordarone -) 100 mg PO DAILY [facility] Last Admin: 09/04/18 10:18 Dose: 100 mg Aspirin (Asa -) 81 mg PO ACDIN [facility] Last Admin: 09/03/18 16:36 Dose: 81 mg Atorvastatin Calcium (Lipitor -) 40 mg PO HS [facility] Last Admin: 09/03/18 21:13 Dose: 40 mg Diltiazem HCl (Cardizem Cd -) 180 mg PO DAILY [facility] Last Admin: 09/04/18 10:18 Dose: 180 mg Fenofibric Acid (Trilipix -) 135 mg PO DAILY [facility] Last Admin: 09/04/18 12:46 Dose: 135 mg Furosemide (Lasix -) 40 mg PO DAILY [facility] Last Admin: 09/04/18 10:22 Dose: 40 mg Hyoscyamine Sulfate (Levsin Odt -) 0.125 mg PO Q6H PRN PRN Reason: ABDOMINAL PAIN Isosorbide Mononitrate (Imdur -) 60 mg PO DAILY [facility] Last Admin: 09/04/18 10:22 Dose: 60 mg Lisinopril (Prinivil) 5 mg PO [facility] Last Admin: 09/03/18 21:13 Dose: 5 mg Methylprednisolone Sodium Succinate (Solu-Medrol -) 40 mg IVPUSH BID [facility] Last Admin: 09/04/18 10:24 Dose: 40 mg Metoclopramide HCl (Reglan -) 5 mg PO TIDAC PRN PRN Reason: NAUSEA Non-Formulary Medication (Patient's Own Med) 1 each PO DAILY [facility] Oxycodone HCl (Roxicodone -) 30 mg PO [facility] Last Admin: 09/03/18 21:14 Dose: 30 mg Oxycodone HCl (Roxicodone -) 10 mg PO 0600,1000,1400,1800 PRN PRN Reason: PAIN LEVEL 6-10 Last Admin: 09/04/18 10:38 Dose: 10 mg Pantoprazole Sodium (Protonix Iv) 40 mg IVPUSH DAILY [facility] Last Admin: 09/04/18 10:23 Dose: 40 mg Prasugrel (Effient -) 5 mg PO DAILY [facility] Last Admin: 09/04/18 12:46 Dose: 5 mg Ranitidine HCl (Zantac -) 150 mg PO DAILY [facility] Last Admin: 09/04/18 10:24 Dose: 150 mg Ranolazine (Ranexa -) 1,000 mg PO BID [facility] Last Admin: 09/04/18 10:23 Dose: 1,000 mg Sertraline HCl (Zoloft -) 50 mg PO DAILY [facility] Last Admin: 09/04/18 10:24 Dose: 50 mg Sucralfate (Carafate -) 1 gm PO BID [facility] Last Admin: 09/04/18 12:46 Dose: 1 gm Tamsulosin HCl (Flomax -) 0.4 mg PO [facility] Last Admin: 09/03/18 21:13 Dose: 0.4 mg Warfarin Sodium (Coumadin -) 3 mg PO DAILY@1800 [facility] Last Admin: 09/03/18 17:40 Dose: 3 mg Constitutional: Yes: Well Nourished, No Distress, Calm, Obese Cardiovascular: Yes: Regular Rate and Rhythm Respiratory: Yes: Diminished at the bases Gastrointestinal: Yes: Normal Bowel Sounds, Soft, Abdomen, Obese Genitourinary: Yes: WNL Musculoskeletal: Yes: WNL Extremities: Yes: WNL Edema: Yes Peripheral Pulses WNL: Yes Neurological: Yes: Alert, Oriented Psychiatric: Yes: Alert, Oriented Labs: Laboratory Results - last 24 hr 09/04/18 09/04/18 05:30 05:30 PT with INR 36.90 H INR 3.09 H Sodium 136 Potassium 3.8 Chloride 99 Carbon Dioxide 32 Anion Gap 6 L BUN 27.9 H Creatinine 1.0 Est GFR (CKD-EPI)AfAm 91.13 Est GFR (CKD-EPI)NonAf 78.63 Random Glucose 154 H Calcium 8.7 Total Bilirubin 0.4 AST 8 L ALT 21 Alkaline Phosphatase 29 L Creatine Kinase 46 Troponin I 1.96 H* Total Protein 6.7 Albumin 3.6 Problem List - Problems (1) Chest pain Code(s): R07.9 - CHEST PAIN, UNSPECIFIED Qualifiers: Chest pain type: unspecified Qualified Code(s): R07.9 - Chest pain, unspecified (2) Elevated troponin Code(s): R79.89 - OTHER SPECIFIED ABNORMAL FINDINGS OF BLOOD CHEMISTRY (3) GERD (gastroesophageal reflux disease) Code(s): K21.9 - GASTRO-ESOPHAGEAL REFLUX DISEASE WITHOUT ESOPHAGITIS (4) Acute exacerbation of CHF (congestive heart failure) Code(s): I50.9 - HEART FAILURE, UNSPECIFIED (5) Aortic stenosis Code(s): I35.0 - NONRHEUMATIC AORTIC (VALVE) STENOSIS (6) CAD (coronary artery disease) Code(s): I25.10 - ATHSCL HEART DISEASE OF [place] CORONARY ARTERY W/O ANG PCTRS (7) Dyspnea Code(s): R06.00 - DYSPNEA, UNSPECIFIED (8) Obstructive sleep apnea Code(s): G47.33 - OBSTRUCTIVE SLEEP APNEA (ADULT) (PEDIATRIC) (9) PAF (paroxysmal atrial fibrillation) Code(s): I48.0 - PAROXYSMAL ATRIAL FIBRILLATION IMP: Acute hypercapneic hypoxemic respiratory failure Acute pulmonary edema COPD Doubt acute pneumonia Lasix O2 as needed Needs optimization of OSAS as an outpatient Noted Medrol started today Monitor off ABX Cardiac Telemetry monitoring Dr Muhammad
--- NOTE | 2018-09-04 13:40 | PN ---
Progress Note, Physician Chief Complaint: no cp History of Present Illness: 63 year old male with PMHX A-fib (on Coumadin), aortic stenosis, CAD(post multiple stent placement), COPD, CHF, GERD,BPH, Depression, HTN/HLD, and SVT present to the ED for Chest pain and SOB (pain is sharp/ stabbing like on left side,intermittent, non-radiating associated with sob and worse with exertion. Patient has had recent Cardiac Cath at [facility] without stent placement. Patient did take ASA prior to coming to ED. Patient denies fever, chills at this time. PMH Past medical history Major events s/p multiple coronary stents s/p PTCA of distal OM1 (12/24/10) s/p pulmonary vein isolation procedures (ablation) x 2 for Atrial Fibrillation Cardiac Cath [place] 01-17-09 Coronary Angiography [facility] 11-04-09 Cardiac Cath [facility] 12-31-09 Cardiac Cath [facility] 06-01-10 Cardiac Cath [facility] 06-22-10 Cardiac Cath [place] 12-24-10 Cardiac Cath [place] 03-17-12 Cardiac Cath [place] 05-11-12 Cardiac Surgery 06-01-12 Cardiac Cath [place] 03-28-15 Cardiac Cath [place] 03-28-[address] [facility] 03-12-16 Cardiac Cath [place] 08-24-18 Triple vessel disease as described: Left Main 30% LAD proximal 30%, and mid 50%, proximal stent patent with 30% ISR, mid stent patent with 30% ISR, distal stent patent with 30% ISR, distal 80% tapers to small caliber vessel D1 90% large vessel LCx mid 40% OM1 100% ISR previous stent sites OM2 100% RCA mid stent site 40% ISR, distal RCA site patent widely, distal RCA 70-80% RPDA previous stent sites patent RV branch 100% Right to left, left to right and left to left collaterals coronary artery disease Patent stent: Left Anterior Descending - proximal ad mid segments Patent stent: Right Coronary Artery - mod and distal segments Patent stent: Right Posterior Descending Instent restenosis: 1st Obtuse Marginal Severe aortic stenosis Mild to Moderate aortic insufficiency Mild Pulmonary Hypertension Severe aortic valve stenosis with GEORGE calculated ~ 0.9-0.99 cm2 and mean gradient across valve measured ~ 23 mmHg LVEDP ~10 mmHg PASP measured up to 40 mmHg Mean RA pressure ~ 11 mmHg Mean PCW ~ 18 mmHg Ongoing medical problems Medical history: angina pectoris obstructive sleep apnea Anxiety Atrial fibrillation-->ablation Rx CAD: s/p multiple PCIs; the latest 12/08: patent mid LAD and RPDA prior stents; PTCA of distal OM1; latest angiograms 04/15 and 03/16: non-obstructive CAD Congestive heart failure (diastolic) COPD Hypercholesterolemia Hypertension Moderate aortic regurgitation Obesity s/p pulmonary vein ablation x 2 for PAF, most recently at [facility] [place] (followed by Dr. Fam Pollock) - Current Medication List Current Medications: Active Medications Acetaminophen (Tylenol -) 650 mg PO Q4H PRN PRN Reason: FEVER Last Admin: 09/03/18 16:36 Dose: 650 mg Albuterol Sulfate (Ventolin Hfa Inhaler -) 2 puff IH Q6H PRN PRN Reason: SHORTNESS OF BREATH Albuterol Sulfate (Ventolin 0.083% Nebulizer Soln -) 1 amp NEB Q4H PRN PRN Reason: SHORT OF BREATH/WHEEZING Last Admin: 09/03/18 22:04 Dose: 1 amp Amiodarone HCl (Cordarone -) 100 mg PO DAILY [facility] Last Admin: 09/04/18 10:18 Dose: 100 mg Aspirin (Asa -) 81 mg PO ACDIN [facility] Last Admin: 09/03/18 16:36 Dose: 81 mg Atorvastatin Calcium (Lipitor -) 40 mg PO HS [facility] Last Admin: 09/03/18 21:13 Dose: 40 mg Diltiazem HCl (Cardizem Cd -) 180 mg PO DAILY [facility] Last Admin: 09/04/18 10:18 Dose: 180 mg Fenofibric Acid (Trilipix -) 135 mg PO DAILY [facility] Last Admin: 09/04/18 12:46 Dose: 135 mg Furosemide (Lasix -) 40 mg PO DAILY [facility] Last Admin: 09/04/18 10:22 Dose: 40 mg Hyoscyamine Sulfate (Levsin Odt -) 0.125 mg PO Q6H PRN PRN Reason: ABDOMINAL PAIN Isosorbide Mononitrate (Imdur -) 60 mg PO DAILY [facility] Last Admin: 09/04/18 10:22 Dose: 60 mg Lisinopril (Prinivil) 5 mg PO HS [facility] Last Admin: 09/03/18 21:13 Dose: 5 mg Methylprednisolone Sodium Succinate (Solu-Medrol -) 40 mg IVPUSH BID [facility] Last Admin: 09/04/18 10:24 Dose: 40 mg Metoclopramide HCl (Reglan -) 5 mg PO TIDAC PRN PRN Reason: NAUSEA Non-Formulary Medication (Patient's Own Med) 1 each PO DAILY [facility] Oxycodone HCl (Roxicodone -) 30 mg PO [facility] Last Admin: 09/03/18 21:14 Dose: 30 mg Oxycodone HCl (Roxicodone -) 10 mg PO 0600,1000,1400,1800 PRN PRN Reason: PAIN LEVEL 6-10 Last Admin: 09/04/18 10:38 Dose: 10 mg Pantoprazole Sodium (Protonix Iv) 40 mg IVPUSH DAILY [facility] Last Admin: 09/04/18 10:23 Dose: 40 mg Prasugrel (Effient -) 5 mg PO DAILY [facility] Last Admin: 09/04/18 12:46 Dose: 5 mg Ranitidine HCl (Zantac -) 150 mg PO DAILY [facility] Last Admin: 09/04/18 10:24 Dose: 150 mg Ranolazine (Ranexa -) 1,000 mg PO BID [facility] Last Admin: 09/04/18 10:23 Dose: 1,000 mg Sertraline HCl (Zoloft -) 50 mg PO DAILY [facility] Last Admin: 09/04/18 10:24 Dose: 50 mg Sucralfate (Carafate -) 1 gm PO BID [facility] Last Admin: 09/04/18 12:46 Dose: 1 gm Tamsulosin HCl (Flomax -) 0.4 mg PO [facility] Last Admin: 09/03/18 21:13 Dose: 0.4 mg Warfarin Sodium (Coumadin -) 3 mg PO DAILY@1800 [facility] Last Admin: 09/03/18 17:40 Dose: 3 mg - Objective Vital Signs: Vital Signs Temperature 98.7 F 09/04/18 06:00 Pulse Rate 116 H 09/04/18 09:58 Respiratory Rate 18 09/04/18 09:58 Blood Pressure 131/80 09/04/18 09:58 O2 Sat by Pulse Oximetry (%) 96 09/03/18 21:00 Eyes: Yes: WNL, Conjunctiva Clear, EOM Intact HENT: Yes: WNL, Atraumatic, Normocephalic Neck: Yes: WNL, Supple, Trachea Midline Cardiovascular: Yes: WNL, Regular Rate and Rhythm Respiratory: Yes: WNL, Regular, CTA Bilaterally Gastrointestinal: Yes: WNL, Normal Bowel Sounds Genitourinary: Yes: WNL Musculoskeletal: Yes: WNL Extremities: Yes: WNL Edema: No Integumentary: Yes: WNL Neurological: Yes: WNL, Alert, Oriented ...Motor Strength: WNL Psychiatric: Yes: WNL Labs: CBC, BMP 09/03/18 05:40 09/04/18 05:30 INR, PTT INR 3.09 (0.83-1.09) H 09/04/18 05:30 Problem List - Problems (1) Acute exacerbation of COPD with asthma Code(s): J44.1 - CHRONIC OBSTRUCTIVE PULMONARY DISEASE W (ACUTE) EXACERBATION; J45.901 - UNSPECIFIED ASTHMA WITH (ACUTE) EXACERBATION (2) BPH (benign prostatic hyperplasia) Code(s): N40.0 - BENIGN PROSTATIC HYPERPLASIA WITHOUT LOWER URINRY TRACT SYMP (3) COPD (chronic obstructive pulmonary disease) Code(s): J44.9 - CHRONIC OBSTRUCTIVE PULMONARY DISEASE, UNSPECIFIED Qualifiers: COPD type: unspecified COPD Qualified Code(s): J44.9 - Chronic obstructive pulmonary disease, unspecified (4) Chest pain Code(s): R07.9 - CHEST PAIN, UNSPECIFIED Qualifiers: Chest pain type: unspecified Qualified Code(s): R07.9 - Chest pain, unspecified (5) Depression Code(s): F32.9 - MAJOR DEPRESSIVE DISORDER, SINGLE EPISODE, UNSPECIFIED (6) Elevated troponin Code(s): R79.89 - OTHER SPECIFIED ABNORMAL FINDINGS OF BLOOD CHEMISTRY (7) GERD (gastroesophageal reflux disease) Code(s): K21.9 - GASTRO-ESOPHAGEAL REFLUX DISEASE WITHOUT ESOPHAGITIS (8) TRACY (acute kidney injury) Code(s): N17.9 - ACUTE KIDNEY FAILURE, UNSPECIFIED (9) Acute coronary syndrome Code(s): I24.9 - ACUTE ISCHEMIC HEART DISEASE, UNSPECIFIED (10) Acute exacerbation of CHF (congestive heart failure) Code(s): I50.9 - HEART FAILURE, UNSPECIFIED (11) Acute on chronic diastolic (congestive) heart failure Code(s): I50.33 - ACUTE ON CHRONIC DIASTOLIC (CONGESTIVE) HEART FAILURE (12) Aortic stenosis Code(s): I35.0 - NONRHEUMATIC AORTIC (VALVE) STENOSIS (13) Atypical chest pain Code(s): R07.89 - OTHER CHEST PAIN (14) Bifascicular bundle branch block Code(s): I45.2 - BIFASCICULAR BLOCK (15) CAD (coronary artery disease) Code(s): I25.10 - ATHSCL HEART DISEASE OF [place] CORONARY ARTERY W/O ANG PCTRS (16) CAP (community acquired pneumonia) Code(s): J18.9 - PNEUMONIA, UNSPECIFIED ORGANISM Qualifiers: (17) CHF (congestive heart failure) Code(s): I50.9 - HEART FAILURE, UNSPECIFIED (18) COPD exacerbation Code(s): J44.1 - CHRONIC OBSTRUCTIVE PULMONARY DISEASE W (ACUTE) EXACERBATION (19) Chest heaviness Code(s): R07.89 - OTHER CHEST PAIN (20) Contusion of rib on right side Code(s): S20.211A - CONTUSION OF RIGHT FRONT WALL OF THORAX, INITIAL ENCOUNTER (21) Demand ischemia Code(s): I24.8 - OTHER FORMS OF ACUTE ISCHEMIC HEART DISEASE (22) Dyspnea Code(s): R06.00 - DYSPNEA, UNSPECIFIED (23) Epigastric abdominal pain Code(s): R10.13 - EPIGASTRIC PAIN (24) Epistaxis Code(s): R04.0 - EPISTAXIS (25) Hypertriglyceridemia Code(s): E78.1 - PURE HYPERGLYCERIDEMIA (26) Hypokalemia Code(s): E87.6 - HYPOKALEMIA (27) Hypotension Code(s): I95.9 - HYPOTENSION, UNSPECIFIED (28) Hypothyroid Code(s): E03.9 - HYPOTHYROIDISM, UNSPECIFIED (29) LPRD (laryngopharyngeal reflux disease) Code(s): K21.9 - GASTRO-ESOPHAGEAL REFLUX DISEASE WITHOUT ESOPHAGITIS (30) Leg pain Code(s): M79.606 - PAIN IN LEG, UNSPECIFIED (31) Myocardial disease Code(s): I51.5 - MYOCARDIAL DEGENERATION (32) Nausea Code(s): R11.0 - NAUSEA (33) Obesity Code(s): E66.9 - OBESITY, UNSPECIFIED (34) Obstructive sleep apnea Code(s): G47.33 - OBSTRUCTIVE SLEEP APNEA (ADULT) (PEDIATRIC) (35) On amiodarone therapy Code(s): Z79.899 - OTHER HALF-WAY (CURRENT) DRUG THERAPY (36) PAF (paroxysmal atrial fibrillation) Code(s): I48.0 - PAROXYSMAL ATRIAL FIBRILLATION (37) Pleural effusion Code(s): J90 - PLEURAL EFFUSION, NOT ELSEWHERE CLASSIFIED (38) Pleuritic chest pain Code(s): R07.81 - PLEURODYNIA (39) Pneumonia Code(s): J18.9 - PNEUMONIA, UNSPECIFIED ORGANISM (40) Presence of stent in coronary artery in patient with coronary artery disease Code(s): I25.10 - ATHSCL HEART DISEASE OF [place] CORONARY ARTERY W/O ANG PCTRS; Z95.5 - PRESENCE OF CORONARY ANGIOPLASTY IMPLANT AND GRAFT (41) Rib fractures Code(s): S22.39XA - FRACTURE OF ONE RIB, UNSP SIDE, INIT FOR CLOS FX (42) S/P ablation of atrial fibrillation Code(s): Z98.890 - OTHER SPECIFIED POSTPROCEDURAL STATES; Z86.79 - PERSONAL HISTORY OF OTHER DISEASES OF THE CIRCULATORY SYSTEM (43) SOB (shortness of breath) Code(s): R06.02 - SHORTNESS OF BREATH (44) Sepsis Code(s): A41.9 - SEPSIS, UNSPECIFIED ORGANISM (45) Atrial fibrillation Code(s): I48.91 - UNSPECIFIED ATRIAL FIBRILLATION (46) CAD (coronary artery disease) Code(s): I25.10 - ATHSCL HEART DISEASE OF [place] CORONARY ARTERY W/O ANG PCTRS Qualifiers: (47) COPD (chronic obstructive pulmonary disease) Code(s): J44.9 - CHRONIC OBSTRUCTIVE PULMONARY DISEASE, UNSPECIFIED Qualifiers: (48) Chronic abdominal pain Code(s): R10.9 - UNSPECIFIED ABDOMINAL PAIN; G89.29 - OTHER CHRONIC PAIN (49) Chronic back pain Code(s): M54.9 - DORSALGIA, UNSPECIFIED; G89.29 - OTHER CHRONIC PAIN (50) Chronic diastolic heart failure Code(s): I50.32 - CHRONIC DIASTOLIC (CONGESTIVE) HEART FAILURE (51) Constipation Code(s): K59.00 - CONSTIPATION, UNSPECIFIED (52) History of coronary artery stent placement Code(s): Z95.5 - PRESENCE OF CORONARY ANGIOPLASTY IMPLANT AND GRAFT (53) Hyperlipidemia Code(s): E78.5 - HYPERLIPIDEMIA, UNSPECIFIED (54) Hypertension Code(s): I10 - ESSENTIAL (PRIMARY) HYPERTENSION Assessment/Plan ASSESSMENT: 1. CAD post PCI/stent with evidence of demand ischemic injury angina pectoris, nonstemi 2. Diastolic LV dysfunction with class 0-I NYHA classification LV failure, clinically compensated 3. PAF [id number] score of 4 on A/C with Coumadin 4. Aortic stenosis 5. HTN 6. Hypercholesterolemia 7. COPD exacerbation, resolved 8. GERD PLAN: 1. hold Coumadin . Start IV heparin when inr below 2 close monitoring of CBC, c. cath and revascularization later this week. 2. Continue ASA and Effient with caution, but preferably a single agent should be continued in view of concomitant Coumadin administration (higher bleed risk) 3. Continue Amiodarone 4. Continue Cardizem CD but ideally B-Blockers should be added unless contraindicated 5. Continue Imdur and Ranexa 6. Continue Lisinopril 7. Continue Lipitor and Trilipix 8. Continue Lasix but change to PO
[2018-09-04] MEDS: ASPIRIN 81 MG CHEWABLE TABLETS PO SCH (17:00)
[2018-09-04] MEDS: AZITHROMYCIN IVPB 250 MG in DEXTROSE 5%-WATER - 250 ML IVPB SCH (20:29)
[2018-09-04] MEDS: CEFTRIAXONE 1 GM in DEXTROSE 5%-WATER - 50 ML IVPB SCH (20:29)
[2018-09-04] MEDS: ATORVASTATIN CA 40 MG TABLET (FP) PO SCH (21:49)
[2018-09-04] MEDS: oxyCODONE HCL 5 MG TABLET PO SCH (21:49)
[2018-09-04] MEDS: LISINOPRIL 5 MG TABLET (FP) PO SCH (21:50)
[2018-09-04] MEDS: TAMSULOSIN HCL 0.4 MG CAP PO SCH (21:50)
[2018-09-05] MEDS: oxyCODONE HCL 5 MG TABLET PO PRN ×4 (06:30→18:43)
[2018-09-05] MEDS: ALBUTEROL SO4 0.083% IH SOL 2.5 MG/3 ML VIAL.NEB. NEB PRN ×2 (06:41→21:15)
[2018-09-05 07:08] LABS: BASO % 0.1 % (0-2.0); HEMATOCRIT 36.4 % (35.4-49); HEMOGLOBIN 11.9 GM/dL (11.7-16.9); LYMPH % 4.6 % (8-40); MCH 26.9 pg (25.7-33.7); MCHC 32.8 g/dl (32.0-35.9); MEAN PLT VOLUME 7.9 fl (7.5-11.1); MONO % 2.8 % (3.8-10.2); NEUT % 92.5 % (42.8-82.8); PLATELET COUNT 283 K/MM3 (134-434); RBC 4.44 M/mm3 (4.00-5.60); WHITE BLOOD COUNT 11.1 K/mm3 (4.0-10.0)
[2018-09-05 07:38] LABS: INR 3.41 (0.83-1.09); PROTHROMBIN TIME (PATIENT) 40.8 SEC (9.7-13.0)
--- NOTE | 2018-09-05 07:39 | PN ---
Progress Note, Physician - Current Medication List Current Medications: Active Medications Acetaminophen (Tylenol -) 650 mg PO Q4H PRN PRN Reason: FEVER Last Admin: 09/03/18 16:36 Dose: 650 mg Albuterol Sulfate (Ventolin Hfa Inhaler -) 2 puff IH Q6H PRN PRN Reason: SHORTNESS OF BREATH Albuterol Sulfate (Ventolin 0.083% Nebulizer Soln -) 1 amp NEB Q4H PRN PRN Reason: SHORT OF BREATH/WHEEZING Last Admin: 09/05/18 06:41 Dose: 1 amp Amiodarone HCl (Cordarone -) 100 mg PO DAILY [facility] Last Admin: 09/04/18 10:18 Dose: 100 mg Aspirin (Asa -) 81 mg PO ACDIN [facility] Last Admin: 09/04/18 17:00 Dose: 81 mg Atorvastatin Calcium (Lipitor -) 40 mg PO HS [facility] Last Admin: 09/04/18 21:49 Dose: 40 mg Diltiazem HCl (Cardizem Cd -) 180 mg PO DAILY [facility] Last Admin: 09/04/18 10:18 Dose: 180 mg Fenofibric Acid (Trilipix -) 135 mg PO DAILY [facility] Last Admin: 09/04/18 12:46 Dose: 135 mg Furosemide (Lasix -) 40 mg PO DAILY [facility] Last Admin: 09/04/18 10:22 Dose: 40 mg Hyoscyamine Sulfate (Levsin Odt -) 0.125 mg PO Q6H PRN PRN Reason: ABDOMINAL PAIN Isosorbide Mononitrate (Imdur -) 60 mg PO DAILY [facility] Last Admin: 09/04/18 10:22 Dose: 60 mg Lisinopril (Prinivil) 5 mg PO HS [facility] Last Admin: 09/04/18 21:50 Dose: 5 mg Methylprednisolone Sodium Succinate (Solu-Medrol -) 40 mg IVPUSH BID [facility] Last Admin: 09/04/18 21:49 Dose: 40 mg Metoclopramide HCl (Reglan -) 5 mg PO TIDAC PRN PRN Reason: NAUSEA Non-Formulary Medication (Patient's Own Med) 1 each PO DAILY [facility] Oxycodone HCl (Roxicodone -) 30 mg PO HS [facility] Last Admin: 09/04/18 21:49 Dose: 30 mg Oxycodone HCl (Roxicodone -) 10 mg PO 0600,1000,1400,1800 PRN PRN Reason: PAIN LEVEL 6-10 Last Admin: 09/05/18 06:30 Dose: 10 mg Pantoprazole Sodium (Protonix Iv) 40 mg IVPUSH DAILY [facility] Last Admin: 09/04/18 10:23 Dose: 40 mg Prasugrel (Effient -) 5 mg PO DAILY [facility] Last Admin: 09/04/18 12:46 Dose: 5 mg Ranitidine HCl (Zantac -) 150 mg PO DAILY [facility] Last Admin: 09/04/18 10:24 Dose: 150 mg Ranolazine (Ranexa -) 1,000 mg PO BID [facility] Last Admin: 09/04/18 21:50 Dose: 1,000 mg Sertraline HCl (Zoloft -) 50 mg PO DAILY [facility] Last Admin: 09/04/18 10:24 Dose: 50 mg Sucralfate (Carafate -) 1 gm PO BID [facility] Last Admin: 09/04/18 21:49 Dose: 1 gm Tamsulosin HCl (Flomax -) 0.[address] [facility] Last Admin: 09/04/18 21:50 Dose: 0.4 mg - Objective Vital Signs: Vital Signs Temperature 97.6 F 09/05/18 06:00 Pulse Rate 109 H 09/05/18 06:00 Respiratory Rate 20 09/05/18 06:00 Blood Pressure 141/87 09/05/18 06:00 O2 Sat by Pulse Oximetry (%) 97 09/04/18 21:00 Cardiovascular: Yes: Murmur, S1, S2 Respiratory: Yes: Regular, CTA Bilaterally Gastrointestinal: Yes: Normal Bowel Sounds, Soft Labs: INR, PTT INR 3.41 (0.83-1.09) H 09/05/18 06:15 Assessment/Plan (1) Acute exacerbation of COPD with asthma Assessment/Plan: -Pulm on board -IV Solumedrol--TO BID--po -Bronchodilators -Bipap as needed -O2 via NC -keep SpO2 >90% -Azithromycin and Ceftriaxone--ID CONSULT -CXR shows progressive congestive and infiltrative changes with enlarged heart and dense left base Code(s): J44.1 - CHRONIC OBSTRUCTIVE PULMONARY DISEASE W (ACUTE) EXACERBATION; J45.901 - UNSPECIFIED ASTHMA WITH (ACUTE) EXACERBATION (2) BPH (benign prostatic hyperplasia) Assessment/Plan: -Tamsulosin Code(s): N40.0 - BENIGN PROSTATIC HYPERPLASIA WITHOUT LOWER URINRY TRACT SYMP (3) Elevated troponin Assessment/Plan: -Trop 0.06--2.6--REPEAT 1.9--d/w cardio for cath -repeat trop ordered -tele monitoring Code(s): R79.89 - OTHER SPECIFIED ABNORMAL FINDINGS OF BLOOD CHEMISTRY (4) GERD (gastroesophageal reflux disease) Assessment/Plan: -Pantoprazole Code(s): K21.9 - GASTRO-ESOPHAGEAL REFLUX DISEASE WITHOUT ESOPHAGITIS (5) Chest pain Assessment/Plan: -tele monitoring -cardiology on board -recently had 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 week with occ med physician at [place]-to be transferred to [place] Code(s): R07.9 - CHEST PAIN, UNSPECIFIED Qualifiers: Chest pain type: unspecified Qualified Code(s): R07.9 - Chest pain, unspecified (6) Atrial fibrillation Assessment/Plan: -Hold Coumadin 3 mg po daily -monitor INR daily -therapeutic INR goal 2-3 -Take Cardizem CD 180 mg at home, will continue home dosage Code(s): I48.91 - UNSPECIFIED ATRIAL FIBRILLATION (7) CAD (coronary artery disease) Assessment/Plan: -Aspirin and Ranexa Code(s): I25.10 - ATHSCL HEART DISEASE OF [place] CORONARY ARTERY W/O ANG PCTRS Qualifiers: (8) Chronic diastolic heart failure Assessment/Plan: -Cardiology on board -tele monitoring -1L fluid restriction -daily weights -Ranexa, Imdur -Furosemide 40 mg IVP BID Code(s): I50.32 - CHRONIC DIASTOLIC (CONGESTIVE) HEART FAILURE (9) Pneumonia Assessment/Plan: -CXR shows progressive congestive and infiltrative changes with enlarged heart and dense left base -no leukocytosis -afebrile -Azithromycin and Ceftriaxone--ID consult -cxr -Bronchodilators -Pulmonary on board Code(s): J18.9 - PNEUMONIA, UNSPECIFIED ORGANISM
[2018-09-05 07:48] LABS: ALBUMIN 3.5 g/dl (3.4-5.0); BILIRUBIN,TOTAL 0.6 mg/dL (0.2-1); BLOOD UREA NITROGEN 25.8 mg/dL (7-18); CALCIUM 8.7 mg/dL (8.5-10.1); CREATININE 0.9 mg/dL (0.55-1.3); POTASSIUM 3.8 mmol/L (3.5-5.1); TOT PROT 6.5 g/dl (6.4-8.2)
[2018-09-05] MEDS ORDERED: PT OWN MED DRAWER 7, Y5N ONE ×4 (09:00→22:08)
[2018-09-05] MEDS: RANITIDINE HCL 150 MG TABLET (FP) PO SCH (09:10)
[2018-09-05] MEDS: SERTRALINE HCL 50 MG TABLET (FP) PO SCH (09:10)
[2018-09-05] MEDS: AMIODARONE HCL 200 MG TABLET (FP) PO SCH (09:11)
[2018-09-05] MEDS: ISOSORBIDE MONONITRATE 60 MG TAB.SR.24H (FP) PO SCH (09:11)
[2018-09-05] MEDS: RANOLAZINE E.R. 1,000 MG TABLET (FP) PO SCH ×2 (09:11→22:11)
[2018-09-05] MEDS: FUROSEMIDE 40 MG TABLET (FP) PO SCH (09:12)
[2018-09-05] MEDS: PRASUGREL HCL 5 MG TAB PO SCH (09:12)
[2018-09-05] MEDS: FENOFIBRIC ACID 135 MG CAP PO SCH (09:13)
[2018-09-05] MEDS: SUCRALFATE 1 GM TABLET (FP) PO SCH ×2 (09:13→22:12)
[2018-09-05] MEDS: PANTOPRAZOLE SODIUM 40 MG VIAL IVPUSH SCH (09:17)
[2018-09-05] MEDS: methylPREDNISolone NA SUCC 40 MG/1 ML VIAL IVPUSH SCH (09:18)
[2018-09-05 10:33] LABS: ANISOCYTOSIS 1+; MACROCYTOSIS 0; PLATELET ESTIMATE NORMAL
--- NOTE | 2018-09-05 11:16 | PN ---
Progress Note, Physician Chief Complaint: no cp History of Present Illness: 63 year old male with PMHX A-fib (on Coumadin), aortic stenosis, CAD(post multiple stent placement), COPD, CHF, GERD,BPH, Depression, HTN/HLD, and SVT present to the ED for Chest pain and SOB (pain is sharp/ stabbing like on left side,intermittent, non-radiating associated with sob and worse with exertion. Patient has had recent Cardiac Cath at [facility] without stent placement. Patient did take ASA prior to coming to ED. Patient denies fever, chills at this time. PMH Past medical history Major events s/p multiple coronary stents s/p PTCA of distal OM1 (12/24/10) s/p pulmonary vein isolation procedures (ablation) x 2 for Atrial Fibrillation Cardiac Cath [place] 01-17-09 Coronary Angiography [facility] 11-04-09 Cardiac Cath [facility] 12-31-09 Cardiac Cath [facility] 06-01-10 Cardiac Cath [facility] 06-22-10 Cardiac Cath [facility] 12-24-10 Cardiac Cath [facility] 03-17-12 Cardiac Cath [place] 05-11-12 Cardiac Surgery 06-01-12 Cardiac Cath [place] 03-28-15 Cardiac Cath [place] 03-28-[address] [facility] 03-12-16 Cardiac Cath [place] 08-24-18 Triple vessel disease as described: Left Main 30% LAD proximal 30%, and mid 50%, proximal stent patent with 30% ISR, mid stent patent with 30% ISR, distal stent patent with 30% ISR, distal 80% tapers to small caliber vessel D1 90% large vessel LCx mid 40% OM1 100% ISR previous stent sites OM2 100% RCA mid stent site 40% ISR, distal RCA site patent widely, distal RCA 70-80% RPDA previous stent sites patent RV branch 100% Right to left, left to right and left to left collaterals coronary artery disease Patent stent: Left Anterior Descending - proximal ad mid segments Patent stent: Right Coronary Artery - mod and distal segments Patent stent: Right Posterior Descending Instent restenosis: 1st Obtuse Marginal Severe aortic stenosis Mild to Moderate aortic insufficiency Mild Pulmonary Hypertension Severe aortic valve stenosis with GEORGE calculated ~ 0.9-0.99 cm2 and mean gradient across valve measured ~ 23 mmHg LVEDP ~10 mmHg PASP measured up to 40 mmHg Mean RA pressure ~ 11 mmHg Mean PCW ~ 18 mmHg Ongoing medical problems Medical history: angina pectoris obstructive sleep apnea Anxiety Atrial fibrillation-->ablation Rx CAD: s/p multiple PCIs; the latest 12/08: patent mid LAD and RPDA prior stents; PTCA of distal OM1; latest angiograms 04/15 and 03/16: non-obstructive CAD Congestive heart failure (diastolic) COPD Hypercholesterolemia Hypertension Moderate aortic regurgitation Obesity s/p pulmonary vein ablation x 2 for PAF, most recently at [facility] (followed by Dr. Fam Pollock) - Current Medication List Current Medications: Active Medications Acetaminophen (Tylenol -) 650 mg PO Q4H PRN PRN Reason: FEVER Last Admin: 09/03/18 16:36 Dose: 650 mg Albuterol Sulfate (Ventolin Hfa Inhaler -) 2 puff IH Q6H PRN PRN Reason: SHORTNESS OF BREATH Albuterol Sulfate (Ventolin 0.083% Nebulizer Soln -) 1 amp NEB Q4H PRN PRN Reason: SHORT OF BREATH/WHEEZING Last Admin: 09/05/18 06:41 Dose: 1 amp Amiodarone HCl (Cordarone -) 100 mg PO DAILY [facility] Last Admin: 09/05/18 09:11 Dose: 100 mg Aspirin (Asa -) 81 mg PO ACDIN [facility] Last Admin: 09/04/18 17:00 Dose: 81 mg Atorvastatin Calcium (Lipitor -) 40 mg PO HS [facility] Last Admin: 09/04/18 21:49 Dose: 40 mg Diltiazem HCl (Cardizem Cd -) 180 mg PO DAILY [facility] Last Admin: 09/05/18 09:10 Dose: 180 mg Fenofibric Acid (Trilipix -) 135 mg PO DAILY [facility] Last Admin: 09/05/18 09:13 Dose: 135 mg Furosemide (Lasix -) 40 mg PO DAILY [facility] Last Admin: 09/05/18 09:12 Dose: 40 mg Hyoscyamine Sulfate (Levsin Odt -) 0.125 mg PO Q6H PRN PRN Reason: ABDOMINAL PAIN Isosorbide Mononitrate (Imdur -) 60 mg PO DAILY [facility] Last Admin: 09/05/18 09:11 Dose: 60 mg Lisinopril (Prinivil) 5 mg PO HS [facility] Last Admin: 09/04/18 21:50 Dose: 5 mg Methylprednisolone Sodium Succinate (Solu-Medrol -) 40 mg IVPUSH BID [facility] Last Admin: 09/05/18 09:18 Dose: 40 mg Metoclopramide HCl (Reglan -) 5 mg PO TIDAC PRN PRN Reason: NAUSEA Non-Formulary Medication (Patient's Own Med) 1 each PO DAILY [facility] Oxycodone HCl (Roxicodone -) 30 mg PO [facility] Last Admin: 09/04/18 21:49 Dose: 30 mg Oxycodone HCl (Roxicodone -) 10 mg PO 0600,1000,1400,1800 PRN PRN Reason: PAIN LEVEL 6-10 Last Admin: 09/05/18 10:46 Dose: 10 mg Pantoprazole Sodium (Protonix Iv) 40 mg IVPUSH DAILY [facility] Last Admin: 09/05/18 09:17 Dose: 40 mg Prasugrel (Effient -) 5 mg PO DAILY [facility] Last Admin: 09/05/18 09:12 Dose: 5 mg Ranitidine HCl (Zantac -) 150 mg PO DAILY [facility] Last Admin: 09/05/18 09:10 Dose: 150 mg Ranolazine (Ranexa -) 1,000 mg PO BID [facility] Last Admin: 09/05/18 09:11 Dose: 1,000 mg Sertraline HCl (Zoloft -) 50 mg PO DAILY [facility] Last Admin: 09/05/18 09:10 Dose: 50 mg Sucralfate (Carafate -) 1 gm PO BID [facility] Last Admin: 09/05/18 09:13 Dose: 1 gm Tamsulosin HCl (Flomax -) 0.4 mg PO [facility] Last Admin: 09/04/18 21:50 Dose: 0.4 mg - Objective Vital Signs: Vital Signs Temperature 98.2 F 09/05/18 10:00 Pulse Rate 110 H 09/05/18 10:00 Respiratory Rate 20 09/05/18 10:00 Blood Pressure 154/86 09/05/18 10:00 O2 Sat by Pulse Oximetry (%) 98 09/05/18 09:00 Eyes: Yes: WNL, Conjunctiva Clear, EOM Intact HENT: Yes: WNL, Atraumatic, Normocephalic Neck: Yes: WNL, Supple, Trachea Midline Cardiovascular: Yes: WNL, Regular Rate and Rhythm Respiratory: Yes: WNL, Regular, CTA Bilaterally Gastrointestinal: Yes: WNL, Normal Bowel Sounds Genitourinary: Yes: WNL Musculoskeletal: Yes: WNL Extremities: Yes: WNL Edema: No Integumentary: Yes: WNL Neurological: Yes: WNL, Alert, Oriented ...Motor Strength: WNL Psychiatric: Yes: WNL Labs: CBC, BMP 09/05/18 06:15 09/05/18 06:15 INR, PTT INR 3.41 (0.83-1.09) H 09/05/18 06:15 Problem List - Problems (1) Acute exacerbation of COPD with asthma Code(s): J44.1 - CHRONIC OBSTRUCTIVE PULMONARY DISEASE W (ACUTE) EXACERBATION; J45.901 - UNSPECIFIED ASTHMA WITH (ACUTE) EXACERBATION (2) BPH (benign prostatic hyperplasia) Code(s): N40.0 - BENIGN PROSTATIC HYPERPLASIA WITHOUT LOWER URINRY TRACT SYMP (3) COPD (chronic obstructive pulmonary disease) Code(s): J44.9 - CHRONIC OBSTRUCTIVE PULMONARY DISEASE, UNSPECIFIED Qualifiers: COPD type: unspecified COPD Qualified Code(s): J44.9 - Chronic obstructive pulmonary disease, unspecified (4) Chest pain Code(s): R07.9 - CHEST PAIN, UNSPECIFIED Qualifiers: Chest pain type: unspecified Qualified Code(s): R07.9 - Chest pain, unspecified (5) Depression Code(s): F32.9 - MAJOR DEPRESSIVE DISORDER, SINGLE EPISODE, UNSPECIFIED (6) Elevated troponin Code(s): R79.89 - OTHER SPECIFIED ABNORMAL FINDINGS OF BLOOD CHEMISTRY (7) GERD (gastroesophageal reflux disease) Code(s): K21.9 - GASTRO-ESOPHAGEAL REFLUX DISEASE WITHOUT ESOPHAGITIS (8) TRACY (acute kidney injury) Code(s): N17.9 - ACUTE KIDNEY FAILURE, UNSPECIFIED (9) Acute coronary syndrome Code(s): I24.9 - ACUTE ISCHEMIC HEART DISEASE, UNSPECIFIED (10) Acute exacerbation of CHF (congestive heart failure) Code(s): I50.9 - HEART FAILURE, UNSPECIFIED (11) Acute on chronic diastolic (congestive) heart failure Code(s): I50.33 - ACUTE ON CHRONIC DIASTOLIC (CONGESTIVE) HEART FAILURE (12) Aortic stenosis Code(s): I35.0 - NONRHEUMATIC AORTIC (VALVE) STENOSIS (13) Atypical chest pain Code(s): R07.89 - OTHER CHEST PAIN (14) Bifascicular bundle branch block Code(s): I45.2 - BIFASCICULAR BLOCK (15) CAD (coronary artery disease) Code(s): I25.10 - ATHSCL HEART DISEASE OF [place] CORONARY ARTERY W/O ANG PCTRS (16) CAP (community acquired pneumonia) Code(s): J18.9 - PNEUMONIA, UNSPECIFIED ORGANISM Qualifiers: (17) CHF (congestive heart failure) Code(s): I50.9 - HEART FAILURE, UNSPECIFIED (18) COPD exacerbation Code(s): J44.1 - CHRONIC OBSTRUCTIVE PULMONARY DISEASE W (ACUTE) EXACERBATION (19) Chest heaviness Code(s): R07.89 - OTHER CHEST PAIN (20) Contusion of rib on right side Code(s): S20.211A - CONTUSION OF RIGHT FRONT WALL OF THORAX, INITIAL ENCOUNTER (21) Demand ischemia Code(s): I24.8 - OTHER FORMS OF ACUTE ISCHEMIC HEART DISEASE (22) Dyspnea Code(s): R06.00 - DYSPNEA, UNSPECIFIED (23) Epigastric abdominal pain Code(s): R10.13 - EPIGASTRIC PAIN (24) Epistaxis Code(s): R04.0 - EPISTAXIS (25) Hypertriglyceridemia Code(s): E78.1 - PURE HYPERGLYCERIDEMIA (26) Hypokalemia Code(s): E87.6 - HYPOKALEMIA (27) Hypotension Code(s): I95.9 - HYPOTENSION, UNSPECIFIED (28) Hypothyroid Code(s): E03.9 - HYPOTHYROIDISM, UNSPECIFIED (29) LPRD (laryngopharyngeal reflux disease) Code(s): K21.9 - GASTRO-ESOPHAGEAL REFLUX DISEASE WITHOUT ESOPHAGITIS (30) Leg pain Code(s): M79.606 - PAIN IN LEG, UNSPECIFIED (31) Myocardial disease Code(s): I51.5 - MYOCARDIAL DEGENERATION (32) Nausea Code(s): R11.0 - NAUSEA (33) Obesity Code(s): E66.9 - OBESITY, UNSPECIFIED (34) Obstructive sleep apnea Code(s): G47.33 - OBSTRUCTIVE SLEEP APNEA (ADULT) (PEDIATRIC) (35) On amiodarone therapy Code(s): Z79.899 - OTHER HALF-WAY (CURRENT) DRUG THERAPY (36) PAF (paroxysmal atrial fibrillation) Code(s): I48.0 - PAROXYSMAL ATRIAL FIBRILLATION (37) Pleural effusion Code(s): J90 - PLEURAL EFFUSION, NOT ELSEWHERE CLASSIFIED (38) Pleuritic chest pain Code(s): R07.81 - PLEURODYNIA (39) Pneumonia Code(s): J18.9 - PNEUMONIA, UNSPECIFIED ORGANISM (40) Presence of stent in coronary artery in patient with coronary artery disease Code(s): I25.10 - ATHSCL HEART DISEASE OF [place] CORONARY ARTERY W/O ANG PCTRS; Z95.5 - PRESENCE OF CORONARY ANGIOPLASTY IMPLANT AND GRAFT (41) Rib fractures Code(s): S22.39XA - FRACTURE OF ONE RIB, UNSP SIDE, INIT FOR CLOS FX (42) S/P ablation of atrial fibrillation Code(s): Z98.890 - OTHER SPECIFIED POSTPROCEDURAL STATES; Z86.79 - PERSONAL HISTORY OF OTHER DISEASES OF THE CIRCULATORY SYSTEM (43) SOB (shortness of breath) Code(s): R06.02 - SHORTNESS OF BREATH (44) Sepsis Code(s): A41.9 - SEPSIS, UNSPECIFIED ORGANISM (45) Atrial fibrillation Code(s): I48.91 - UNSPECIFIED ATRIAL FIBRILLATION (46) CAD (coronary artery disease) Code(s): I25.10 - ATHSCL HEART DISEASE OF [place] CORONARY ARTERY W/O ANG PCTRS Qualifiers: (47) COPD (chronic obstructive pulmonary disease) Code(s): J44.9 - CHRONIC OBSTRUCTIVE PULMONARY DISEASE, UNSPECIFIED Qualifiers: (48) Chronic abdominal pain Code(s): R10.9 - UNSPECIFIED ABDOMINAL PAIN; G89.29 - OTHER CHRONIC PAIN (49) Chronic back pain Code(s): M54.9 - DORSALGIA, UNSPECIFIED; G89.29 - OTHER CHRONIC PAIN (50) Chronic diastolic heart failure Code(s): I50.32 - CHRONIC DIASTOLIC (CONGESTIVE) HEART FAILURE (51) Constipation Code(s): K59.00 - CONSTIPATION, UNSPECIFIED (52) History of coronary artery stent placement Code(s): Z95.5 - PRESENCE OF CORONARY ANGIOPLASTY IMPLANT AND GRAFT (53) Hyperlipidemia Code(s): E78.5 - HYPERLIPIDEMIA, UNSPECIFIED (54) Hypertension Code(s): I10 - ESSENTIAL (PRIMARY) HYPERTENSION Assessment/Plan ASSESSMENT: 1. CAD post PCI/stent with evidence of demand ischemic injury angina pectoris, nonstemi 2. Diastolic LV dysfunction with class 0-I NYHA classification LV failure, clinically compensated 3. PAF [id number] score of 4 on A/C with Coumadin 4. Aortic stenosis 5. HTN 6. Hypercholesterolemia 7. COPD exacerbation, resolved 8. GERD PLAN: 1. hold Coumadin . Start IV heparin when inr below 2 close monitoring of CBC, c. cath and revascularization later this week. 2. Continue ASA and Effient with caution, but preferably a single agent should be continued in view of concomitant Coumadin administration (higher bleed risk) 3. Continue Amiodarone 4. Continue Cardizem CD but ideally B-Blockers should be added unless contraindicated 5. Continue Imdur and Ranexa 6. Continue Lisinopril 7. Continue Lipitor and Trilipix 8. Continue Lasix but change to PO
--- NOTE | 2018-09-05 12:14 | PN ---
Progress Note, Physician History of Present Illness: PULMONARY ALERT,OOB-CHAIR,COMFORTABLE,-RESP DISTRESS,-CP - Current Medication List Current Medications: Active Medications Acetaminophen (Tylenol -) 650 mg PO Q4H PRN PRN Reason: FEVER Last Admin: 09/03/18 16:36 Dose: 650 mg Albuterol Sulfate (Ventolin Hfa Inhaler -) 2 puff IH Q6H PRN PRN Reason: SHORTNESS OF BREATH Albuterol Sulfate (Ventolin 0.083% Nebulizer Soln -) 1 amp NEB Q4H PRN PRN Reason: SHORT OF BREATH/WHEEZING Last Admin: 09/05/18 06:41 Dose: 1 amp Amiodarone HCl (Cordarone -) 100 mg PO DAILY [facility] Last Admin: 09/05/18 09:11 Dose: 100 mg Aspirin (Asa -) 81 mg PO ACDIN [facility] Last Admin: 09/04/18 17:00 Dose: 81 mg Atorvastatin Calcium (Lipitor -) 40 mg PO HS [facility] Last Admin: 09/04/18 21:49 Dose: 40 mg Diltiazem HCl (Cardizem Cd -) 180 mg PO DAILY [facility] Last Admin: 09/05/18 09:10 Dose: 180 mg Fenofibric Acid (Trilipix -) 135 mg PO DAILY [facility] Last Admin: 09/05/18 09:13 Dose: 135 mg Furosemide (Lasix -) 40 mg PO DAILY [facility] Last Admin: 09/05/18 09:12 Dose: 40 mg Hyoscyamine Sulfate (Levsin Odt -) 0.125 mg PO Q6H PRN PRN Reason: ABDOMINAL PAIN Isosorbide Mononitrate (Imdur -) 60 mg PO DAILY [facility] Last Admin: 09/05/18 09:11 Dose: 60 mg Lisinopril (Prinivil) 5 mg PO HS [facility] Last Admin: 09/04/18 21:50 Dose: 5 mg Methylprednisolone Sodium Succinate (Solu-Medrol -) 40 mg IVPUSH BID [facility] Last Admin: 09/05/18 09:18 Dose: 40 mg Metoclopramide HCl (Reglan -) 5 mg PO TIDAC PRN PRN Reason: NAUSEA Non-Formulary Medication (Patient's Own Med) 1 each PO DAILY [facility] Linzess 145mcg (Non- (Formulary Med)) 1 each PO DAILY [facility] Oxycodone HCl (Roxicodone -) 30 mg PO HS [facility] Last Admin: 09/04/18 21:49 Dose: 30 mg Oxycodone HCl (Roxicodone -) 10 mg PO 0600,1000,1400,1800 PRN PRN Reason: PAIN LEVEL 6-10 Last Admin: 09/05/18 10:46 Dose: 10 mg Pantoprazole Sodium (Protonix Iv) 40 mg IVPUSH DAILY [facility] Last Admin: 09/05/18 09:17 Dose: 40 mg Prasugrel (Effient -) 5 mg PO DAILY [facility] Last Admin: 09/05/18 09:12 Dose: 5 mg Ranitidine HCl (Zantac -) 150 mg PO DAILY [facility] Last Admin: 09/05/18 09:10 Dose: 150 mg Ranolazine (Ranexa -) 1,000 mg PO BID [facility] Last Admin: 09/05/18 09:11 Dose: 1,000 mg Sertraline HCl (Zoloft -) 50 mg PO DAILY [facility] Last Admin: 09/05/18 09:10 Dose: 50 mg Sucralfate (Carafate -) 1 gm PO BID [facility] Last Admin: 09/05/18 09:13 Dose: 1 gm Tamsulosin HCl (Flomax -) 0.4 mg PO HS [facility] Last Admin: 09/04/18 21:50 Dose: 0.4 mg - Objective Vital Signs: Vital Signs Temperature 98.2 F 09/05/18 10:00 Pulse Rate 110 H 09/05/18 10:00 Respiratory Rate 20 09/05/18 10:00 Blood Pressure 154/86 09/05/18 10:00 O2 Sat by Pulse Oximetry (%) 98 09/05/18 09:00 Constitutional: Yes: Well Nourished, Calm Eyes: Yes: WNL HENT: Yes: WNL Neck: Yes: WNL Cardiovascular: Yes: Pulse Irregular, S1, S2 Respiratory: Yes: Diminished Gastrointestinal: Yes: Normal Bowel Sounds, Soft Extremities: Yes: WNL Edema: Yes Edema: LLE: Trace, RLE: Trace Labs: CBC, BMP 09/05/18 06:15 09/05/18 06:15 INR, PTT INR 3.41 (0.83-1.09) H 09/05/18 06:15 Assessment/Plan Problem List - Problems (1) Chest pain Code(s): R07.9 - CHEST PAIN, UNSPECIFIED Qualifiers: Chest pain type: unspecified Qualified Code(s): R07.9 - Chest pain, unspecified (2) Elevated troponin Code(s): R79.89 - OTHER SPECIFIED ABNORMAL FINDINGS OF BLOOD CHEMISTRY (3) GERD (gastroesophageal reflux disease) Code(s): K21.9 - GASTRO-ESOPHAGEAL REFLUX DISEASE WITHOUT ESOPHAGITIS (4) Acute exacerbation of CHF (congestive heart failure) Code(s): I50.9 - HEART FAILURE, UNSPECIFIED (5) Aortic stenosis Code(s): I35.0 - NONRHEUMATIC AORTIC (VALVE) STENOSIS (6) CAD (coronary artery disease) Code(s): I25.10 - ATHSCL HEART DISEASE OF [place] CORONARY ARTERY W/O ANG PCTRS (7) Dyspnea Code(s): R06.00 - DYSPNEA, UNSPECIFIED (8) Obstructive sleep apnea Code(s): G47.33 - OBSTRUCTIVE SLEEP APNEA (ADULT) (PEDIATRIC) (9) PAF (paroxysmal atrial fibrillation) Code(s): I48.0 - PAROXYSMAL ATRIAL FIBRILLATION IMP: Acute hypercapneic hypoxemic respiratory failure improved Acute pulmonary edema COPD Doubt acute pneumonia ASHD CHF NOREEN AFIB + TROPONIN Lasix O2 as needed Needs optimization of OSAS as an outpatient Medrol taper Cardiac cath later this week DAILY [facility] trend troponin DR MIRANDA
[2018-09-05] MEDS: ASPIRIN 81 MG CHEWABLE TABLETS PO SCH (17:12)
[2018-09-05] MEDS: TAMSULOSIN HCL 0.4 MG CAP PO SCH (22:11)
[2018-09-05] MEDS: oxyCODONE HCL 5 MG TABLET PO SCH (22:11)
[2018-09-05] MEDS: ATORVASTATIN CA 40 MG TABLET (FP) PO SCH (22:11)
[2018-09-05] MEDS: LISINOPRIL 5 MG TABLET (FP) PO SCH (22:11)
[2018-09-05] MEDS: predniSONE 20 MG TABLET (UD) PO SCH (22:12)
[2018-09-06] MEDS ORDERED: PT OWN MED DRAWER 7, Y5N ONE ×4 (00:14→21:06)
[2018-09-06] MEDS: ALBUTEROL SO4 0.083% IH SOL 2.5 MG/3 ML VIAL.NEB. NEB PRN (04:05)
[2018-09-06] MEDS: oxyCODONE HCL 5 MG TABLET PO PRN ×4 (05:45→18:44)
[2018-09-06 08:20] LABS: ALBUMIN 3.6 g/dl (3.4-5.0); BILIRUBIN,TOTAL 0.7 mg/dL (0.2-1); CALCIUM 8.5 mg/dL (8.5-10.1); CREATININE 0.9 mg/dL (0.55-1.3); POTASSIUM 3.8 mmol/L (3.5-5.1); TOT PROT 6.4 g/dl (6.4-8.2)
[2018-09-06] MEDS ORDERED: ALBUTEROL SO4 2.5/IPRATROPIUM 0.5 INH SOL 3 ML VIAL.NEB. NEB ONE (08:38)
--- NOTE | 2018-09-06 08:39 | PN ---
Progress Note, Physician History of Present Illness: c/o sob no cp - Current Medication List Current Medications: Active Medications Acetaminophen (Tylenol -) 650 mg PO Q4H PRN PRN Reason: FEVER Last Admin: 09/03/18 16:36 Dose: 650 mg Albuterol Sulfate (Ventolin Hfa Inhaler -) 2 puff IH Q6H PRN PRN Reason: SHORTNESS OF BREATH Albuterol/Ipratropium (Duoneb -) 1 amp NEB RQID RENY Albuterol/Ipratropium (Duoneb -) 1 amp NEB ONCE ONE Stop: 09/06/18 08:39 Amiodarone HCl (Cordarone -) 100 mg PO DAILY [facility] Last Admin: 09/05/18 09:11 Dose: 100 mg Aspirin (Asa -) 81 mg PO ACDIN [facility] Last Admin: 09/05/18 17:12 Dose: 81 mg Atorvastatin Calcium (Lipitor -) 40 mg PO HS [facility] Last Admin: 09/05/18 22:11 Dose: 40 mg Diltiazem HCl (Cardizem Cd -) 180 mg PO DAILY [facility] Last Admin: 09/05/18 09:10 Dose: 180 mg Fenofibric Acid (Trilipix -) 135 mg PO DAILY [facility] Last Admin: 09/05/18 09:13 Dose: 135 mg Furosemide (Lasix -) 40 mg PO DAILY [facility] Last Admin: 09/05/18 09:12 Dose: 40 mg Hyoscyamine Sulfate (Levsin Odt -) 0.125 mg PO Q6H PRN PRN Reason: ABDOMINAL PAIN Isosorbide Mononitrate (Imdur -) 60 mg PO DAILY [facility] Last Admin: 09/05/18 09:11 Dose: 60 mg Lisinopril (Prinivil) 5 mg PO HS [facility] Last Admin: 09/05/18 22:11 Dose: 5 mg Metoclopramide HCl (Reglan -) 5 mg PO TIDAC PRN PRN Reason: NAUSEA Non-Formulary Medication (Patient's Own Med) 1 each PO DAILY [facility] Linzess 145mcg (Non- (Formulary Med)) 1 each PO DAILY [facility] Oxycodone HCl (Roxicodone -) 30 mg PO HS [facility] Last Admin: 09/05/18 22:11 Dose: 30 mg Oxycodone HCl (Roxicodone -) 10 mg PO 0600,1000,1400,1800 PRN PRN Reason: PAIN LEVEL 6-10 Last Admin: 09/06/18 05:45 Dose: 10 mg Pantoprazole Sodium (Protonix Iv) 40 mg IVPUSH DAILY [facility] Last Admin: 09/05/18 09:17 Dose: 40 mg Prasugrel (Effient -) 5 mg PO DAILY [facility] Last Admin: 09/05/18 09:12 Dose: 5 mg Prednisone (Deltasone -) 20 mg PO BID [facility] Last Admin: 09/05/18 22:12 Dose: 20 mg Ranitidine HCl (Zantac -) 150 mg PO DAILY [facility] Last Admin: 09/05/18 09:10 Dose: 150 mg Ranolazine (Ranexa -) 1,000 mg PO BID [facility] Last Admin: 09/05/18 22:11 Dose: 1,000 mg Sertraline HCl (Zoloft -) 50 mg PO DAILY [facility] Last Admin: 09/05/18 09:10 Dose: 50 mg Sucralfate (Carafate -) 1 gm PO BID [facility] Last Admin: 09/05/18 22:12 Dose: 1 gm Tamsulosin HCl (Flomax -) 0.4 mg PO HS [facility] Last Admin: 09/05/18 22:11 Dose: 0.4 mg - Objective Vital Signs: Vital Signs Temperature 97.6 F 09/06/18 06:00 Pulse Rate 89 09/06/18 06:00 Respiratory Rate 20 09/06/18 06:00 Blood Pressure 112/56 L 09/06/18 06:00 O2 Sat by Pulse Oximetry (%) 96 09/05/18 21:00 Cardiovascular: Yes: Regular Rate and Rhythm Respiratory: Yes: Diminished, On Nasal O2 Gastrointestinal: Yes: Normal Bowel Sounds, Soft Labs: CBC, BMP 09/05/18 06:15 09/06/18 07:25 INR, PTT INR 3.41 (0.83-1.09) H 09/05/18 06:15 Assessment/Plan (1) Acute exacerbation of COPD with asthma Assessment/Plan: -Pulm on board -IV Solumedrol--TO BID--po -Bronchodilators resume -Bipap as needed -O2 via NC -keep SpO2 >90% -Azithromycin and Ceftriaxone--ID CONSULT -CXR shows progressive congestive and infiltrative changes with enlarged heart and dense left base Code(s): J44.1 - CHRONIC OBSTRUCTIVE PULMONARY DISEASE W (ACUTE) EXACERBATION; J45.901 - UNSPECIFIED ASTHMA WITH (ACUTE) EXACERBATION (2) BPH (benign prostatic hyperplasia) Assessment/Plan: -Tamsulosin Code(s): N40.0 - BENIGN PROSTATIC HYPERPLASIA WITHOUT LOWER URINRY TRACT SYMP (3) Elevated troponin Assessment/Plan: -Trop 0.06--2.6--REPEAT 1.9--d/w cardio for cath--ce now -repeat trop ordered -tele monitoring Code(s): R79.89 - OTHER SPECIFIED ABNORMAL FINDINGS OF BLOOD CHEMISTRY (4) GERD (gastroesophageal reflux disease) Assessment/Plan: -Pantoprazole Code(s): K21.9 - GASTRO-ESOPHAGEAL REFLUX DISEASE WITHOUT ESOPHAGITIS (5) Chest pain Assessment/Plan: -tele monitoring -cardiology on board -recently had 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 week with manager clinical applications at [employer]-to be transferred to [facility] Code(s): R07.9 - CHEST PAIN, UNSPECIFIED Qualifiers: Chest pain type: unspecified Qualified Code(s): R07.9 - Chest pain, unspecified (6) Atrial fibrillation Assessment/Plan: -Hold Coumadin 3 mg po daily -monitor INR daily -therapeutic INR goal 2-3 -Take Cardizem CD 180 mg at home, will continue home dosage Code(s): I48.91 - UNSPECIFIED ATRIAL FIBRILLATION (7) CAD (coronary artery disease) Assessment/Plan: -Aspirin and Ranexa Code(s): I25.10 - ATHSCL HEART DISEASE OF [place] CORONARY ARTERY W/O ANG PCTRS Qualifiers: (8) Chronic diastolic heart failure Assessment/Plan: -Cardiology on board -tele monitoring -1L fluid restriction -daily weights -Ranexa, Imdur -Furosemide 40 mg IVP BID Code(s): I50.32 - CHRONIC DIASTOLIC (CONGESTIVE) HEART FAILURE (9) Pneumonia Assessment/Plan: -CXR shows progressive congestive and infiltrative changes with enlarged heart and dense left base -no leukocytosis -afebrile -Azithromycin and Ceftriaxone--ID consult -cxr -Bronchodilators -Pulmonary on board Code(s): J18.9 - PNEUMONIA, UNSPECIFIED ORGANISM
[2018-09-06] MEDS: AMIODARONE HCL 200 MG TABLET (FP) PO SCH (10:00)
[2018-09-06] MEDS: predniSONE 20 MG TABLET (UD) PO SCH ×2 (10:00→21:17)
[2018-09-06] MEDS: ISOSORBIDE MONONITRATE 60 MG TAB.SR.24H (FP) PO SCH (10:04)
[2018-09-06] MEDS: RANOLAZINE E.R. 1,000 MG TABLET (FP) PO SCH ×2 (10:04→21:17)
[2018-09-06] MEDS: RANITIDINE HCL 150 MG TABLET (FP) PO SCH (10:04)
[2018-09-06] MEDS: FUROSEMIDE 40 MG TABLET (FP) PO SCH (10:04)
[2018-09-06] MEDS: SERTRALINE HCL 50 MG TABLET (FP) PO SCH (10:05)
[2018-09-06] MEDS: FENOFIBRIC ACID 135 MG CAP PO SCH (10:05)
[2018-09-06] MEDS: SUCRALFATE 1 GM TABLET (FP) PO SCH ×2 (10:05→21:17)
[2018-09-06 10:06] LABS: INR 2.65 (0.83-1.09); PROTHROMBIN TIME (PATIENT) 31.6 SEC (9.7-13.0)
[2018-09-06] MEDS: PRASUGREL HCL 5 MG TAB PO SCH (10:06)
[2018-09-06] MEDS: LINZESS 145 MCG PO SCH (10:06)
[2018-09-06] MEDS: PANTOPRAZOLE SODIUM 40 MG VIAL IVPUSH SCH (10:10)
--- NOTE | 2018-09-06 11:56 | PN ---
Progress Note, Physician Chief Complaint: no cp History of Present Illness: 63 year old male with PMHX A-fib (on Coumadin), aortic stenosis, CAD(post multiple stent placement), COPD, CHF, GERD,BPH, Depression, HTN/HLD, and SVT present to the ED for Chest pain and SOB (pain is sharp/ stabbing like on left side,intermittent, non-radiating associated with sob and worse with exertion. Patient has had recent Cardiac Cath at [facility] without stent placement. Patient did take ASA prior to coming to ED. Patient denies fever, chills at this time. PMH Past medical history Major events s/p multiple coronary stents s/p PTCA of distal OM1 (12/24/10) s/p pulmonary vein isolation procedures (ablation) x 2 for Atrial Fibrillation Cardiac Cath [place] 01-17-09 Coronary Angiography [facility] 11-04-09 Cardiac Cath [facility] 12-31-09 Cardiac Cath [facility] 06-01-10 Cardiac Cath [facility] 06-22-10 Cardiac Cath [place] 12-24-10 Cardiac Cath [place] 03-17-12 Cardiac Cath [place] 05-11-12 Cardiac Surgery 06-01-12 Cardiac Cath [place] 03-28-15 Cardiac Cath [place] 03-28-15 Cardiac Cath [facility] 03-12-16 Cardiac Cath [place] 08-24-18 Triple vessel disease as described: Left Main 30% LAD proximal 30%, and mid 50%, proximal stent patent with 30% ISR, mid stent patent with 30% ISR, distal stent patent with 30% ISR, distal 80% tapers to small caliber vessel D1 90% large vessel LCx mid 40% OM1 100% ISR previous stent sites OM2 100% RCA mid stent site 40% ISR, distal RCA site patent widely, distal RCA 70-80% RPDA previous stent sites patent RV branch 100% Right to left, left to right and left to left collaterals coronary artery disease Patent stent: Left Anterior Descending - proximal ad mid segments Patent stent: Right Coronary Artery - mod and distal segments Patent stent: Right Posterior Descending Instent restenosis: 1st Obtuse Marginal Severe aortic stenosis Mild to Moderate aortic insufficiency Mild Pulmonary Hypertension Severe aortic valve stenosis with GEORGE calculated ~ 0.9-0.99 cm2 and mean gradient across valve measured ~ 23 mmHg LVEDP ~10 mmHg PASP measured up to 40 mmHg Mean RA pressure ~ 11 mmHg Mean PCW ~ 18 mmHg Ongoing medical problems Medical history: angina pectoris obstructive sleep apnea Anxiety Atrial fibrillation-->ablation Rx CAD: s/p multiple PCIs; the latest 12/08: patent mid LAD and RPDA prior stents; PTCA of distal OM1; latest angiograms 04/15 and 03/16: non-obstructive CAD Congestive heart failure (diastolic) COPD Hypercholesterolemia Hypertension Moderate aortic regurgitation Obesity s/p pulmonary vein ablation x 2 for PAF, most recently at [facility] (followed by Dr. Fam Pollock) - Current Medication List Current Medications: Active Medications Acetaminophen (Tylenol -) 650 mg PO Q4H PRN PRN Reason: FEVER Last Admin: 09/03/18 16:36 Dose: 650 mg Albuterol Sulfate (Ventolin Hfa Inhaler -) 2 puff IH Q6H PRN PRN Reason: SHORTNESS OF BREATH Albuterol/Ipratropium (Duoneb -) 1 amp NEB RQID [facility] Amiodarone HCl (Cordarone -) 100 mg PO DAILY [facility] Last Admin: 09/06/18 10:00 Dose: 100 mg Aspirin (Asa -) 81 mg PO ACDIN [facility] Last Admin: 09/05/18 17:12 Dose: 81 mg Atorvastatin Calcium (Lipitor -) 40 mg PO HS [facility] Last Admin: 09/05/18 22:11 Dose: 40 mg Diltiazem HCl (Cardizem Cd -) 180 mg PO DAILY [facility] Last Admin: 09/06/18 10:00 Dose: 180 mg Fenofibric Acid (Trilipix -) 135 mg PO DAILY [facility] Last Admin: 09/06/18 10:05 Dose: 135 mg Furosemide (Lasix -) 40 mg PO DAILY [facility] Last Admin: 09/06/18 10:04 Dose: 40 mg Hyoscyamine Sulfate (Levsin Odt -) 0.125 mg PO Q6H PRN PRN Reason: ABDOMINAL PAIN Isosorbide Mononitrate (Imdur -) 60 mg PO DAILY [facility] Last Admin: 09/06/18 10:04 Dose: 60 mg Lisinopril (Prinivil) 5 mg PO HS [facility] Last Admin: 09/05/18 22:11 Dose: 5 mg Metoclopramide HCl (Reglan -) 5 mg PO TIDAC PRN PRN Reason: NAUSEA Non-Formulary Medication (Patient's Own Med) 1 each PO DAILY [facility] Linzess 145mcg (Non- (Formulary Med)) 1 each PO DAILY [facility] Last Admin: 09/06/18 10:06 Dose: 1 each Oxycodone HCl (Roxicodone -) 30 mg PO HS [facility] Last Admin: 09/05/18 22:11 Dose: 30 mg Oxycodone HCl (Roxicodone -) 10 mg PO 0600,1000,1400,1800 PRN PRN Reason: PAIN LEVEL 6-10 Last Admin: 09/06/18 10:08 Dose: 10 mg Pantoprazole Sodium (Protonix Iv) 40 mg IVPUSH DAILY [facility] Last Admin: 09/06/18 10:10 Dose: 40 mg Prasugrel (Effient -) 5 mg PO DAILY [facility] Last Admin: 09/06/18 10:06 Dose: 5 mg Prednisone (Deltasone -) 20 mg PO BID [facility] Last Admin: 09/06/18 10:00 Dose: 20 mg Ranitidine HCl (Zantac -) 150 mg PO DAILY [facility] Last Admin: 09/06/18 10:04 Dose: 150 mg Ranolazine (Ranexa -) 1,000 mg PO BID [facility] Last Admin: 09/06/18 10:04 Dose: 1,000 mg Sertraline HCl (Zoloft -) 50 mg PO DAILY [facility] Last Admin: 09/06/18 10:05 Dose: 50 mg Sucralfate (Carafate -) 1 gm PO BID [facility] Last Admin: 09/06/18 10:05 Dose: 1 gm Tamsulosin HCl (Flomax -) 0.4 mg PO [facility] Last Admin: 09/05/18 22:11 Dose: 0.4 mg - Objective Vital Signs: Vital Signs Temperature 97.6 F 09/06/18 06:00 Pulse Rate 89 09/06/18 06:00 Respiratory Rate 20 09/06/18 06:00 Blood Pressure 112/56 L 09/06/18 06:00 O2 Sat by Pulse Oximetry (%) 96 09/05/18 21:00 Eyes: Yes: WNL, Conjunctiva Clear, EOM Intact HENT: Yes: WNL, Atraumatic, Normocephalic Neck: Yes: WNL, Supple, Trachea Midline Cardiovascular: Yes: WNL, Regular Rate and Rhythm Respiratory: Yes: WNL, Regular, CTA Bilaterally Gastrointestinal: Yes: WNL, Normal Bowel Sounds Genitourinary: Yes: WNL Musculoskeletal: Yes: WNL Extremities: Yes: WNL Edema: No Integumentary: Yes: WNL Neurological: Yes: WNL, Alert, Oriented ...Motor Strength: WNL Psychiatric: Yes: WNL Labs: CBC, BMP 09/05/18 06:15 09/06/18 07:25 INR, PTT INR 2.65 (0.83-1.09) H 09/06/18 09:37 Problem List - Problems (1) Acute exacerbation of COPD with asthma Code(s): J44.1 - CHRONIC OBSTRUCTIVE PULMONARY DISEASE W (ACUTE) EXACERBATION; J45.901 - UNSPECIFIED ASTHMA WITH (ACUTE) EXACERBATION (2) BPH (benign prostatic hyperplasia) Code(s): N40.0 - BENIGN PROSTATIC HYPERPLASIA WITHOUT LOWER URINRY TRACT SYMP (3) COPD (chronic obstructive pulmonary disease) Code(s): J44.9 - CHRONIC OBSTRUCTIVE PULMONARY DISEASE, UNSPECIFIED Qualifiers: COPD type: unspecified COPD Qualified Code(s): J44.9 - Chronic obstructive pulmonary disease, unspecified (4) Chest pain Code(s): R07.9 - CHEST PAIN, UNSPECIFIED Qualifiers: Chest pain type: unspecified Qualified Code(s): R07.9 - Chest pain, unspecified (5) Depression Code(s): F32.9 - MAJOR DEPRESSIVE DISORDER, SINGLE EPISODE, UNSPECIFIED (6) Elevated troponin Code(s): R79.89 - OTHER SPECIFIED ABNORMAL FINDINGS OF BLOOD CHEMISTRY (7) GERD (gastroesophageal reflux disease) Code(s): K21.9 - GASTRO-ESOPHAGEAL REFLUX DISEASE WITHOUT ESOPHAGITIS (8) TRACY (acute kidney injury) Code(s): N17.9 - ACUTE KIDNEY FAILURE, UNSPECIFIED (9) Acute coronary syndrome Code(s): I24.9 - ACUTE ISCHEMIC HEART DISEASE, UNSPECIFIED (10) Acute exacerbation of CHF (congestive heart failure) Code(s): I50.9 - HEART FAILURE, UNSPECIFIED (11) Acute on chronic diastolic (congestive) heart failure Code(s): I50.33 - ACUTE ON CHRONIC DIASTOLIC (CONGESTIVE) HEART FAILURE (12) Aortic stenosis Code(s): I35.0 - NONRHEUMATIC AORTIC (VALVE) STENOSIS (13) Atypical chest pain Code(s): R07.89 - OTHER CHEST PAIN (14) Bifascicular bundle branch block Code(s): I45.2 - BIFASCICULAR BLOCK (15) CAD (coronary artery disease) Code(s): I25.10 - ATHSCL HEART DISEASE OF [place] CORONARY ARTERY W/O ANG PCTRS (16) CAP (community acquired pneumonia) Code(s): J18.9 - PNEUMONIA, UNSPECIFIED ORGANISM Qualifiers: (17) CHF (congestive heart failure) Code(s): I50.9 - HEART FAILURE, UNSPECIFIED (18) COPD exacerbation Code(s): J44.1 - CHRONIC OBSTRUCTIVE PULMONARY DISEASE W (ACUTE) EXACERBATION (19) Chest heaviness Code(s): R07.89 - OTHER CHEST PAIN (20) Contusion of rib on right side Code(s): S20.211A - CONTUSION OF RIGHT FRONT WALL OF THORAX, INITIAL ENCOUNTER (21) Demand ischemia Code(s): I24.8 - OTHER FORMS OF ACUTE ISCHEMIC HEART DISEASE (22) Dyspnea Code(s): R06.00 - DYSPNEA, UNSPECIFIED (23) Epigastric abdominal pain Code(s): R10.13 - EPIGASTRIC PAIN (24) Epistaxis Code(s): R04.0 - EPISTAXIS (25) Hypertriglyceridemia Code(s): E78.1 - PURE HYPERGLYCERIDEMIA (26) Hypokalemia Code(s): E87.6 - HYPOKALEMIA (27) Hypotension Code(s): I95.9 - HYPOTENSION, UNSPECIFIED (28) Hypothyroid Code(s): E03.9 - HYPOTHYROIDISM, UNSPECIFIED (29) LPRD (laryngopharyngeal reflux disease) Code(s): K21.9 - GASTRO-ESOPHAGEAL REFLUX DISEASE WITHOUT ESOPHAGITIS (30) Leg pain Code(s): M79.606 - PAIN IN LEG, UNSPECIFIED (31) Myocardial disease Code(s): I51.5 - MYOCARDIAL DEGENERATION (32) Nausea Code(s): R11.0 - NAUSEA (33) Obesity Code(s): E66.9 - OBESITY, UNSPECIFIED (34) Obstructive sleep apnea Code(s): G47.33 - OBSTRUCTIVE SLEEP APNEA (ADULT) (PEDIATRIC) (35) On amiodarone therapy Code(s): Z79.899 - OTHER SENIOR LIVING (CURRENT) DRUG THERAPY (36) PAF (paroxysmal atrial fibrillation) Code(s): I48.0 - PAROXYSMAL ATRIAL FIBRILLATION (37) Pleural effusion Code(s): J90 - PLEURAL EFFUSION, NOT ELSEWHERE CLASSIFIED (38) Pleuritic chest pain Code(s): R07.81 - PLEURODYNIA (39) Pneumonia Code(s): J18.9 - PNEUMONIA, UNSPECIFIED ORGANISM (40) Presence of stent in coronary artery in patient with coronary artery disease Code(s): I25.10 - ATHSCL HEART DISEASE OF [place] CORONARY ARTERY W/O ANG PCTRS; Z95.5 - PRESENCE OF CORONARY ANGIOPLASTY IMPLANT AND GRAFT (41) Rib fractures Code(s): S22.39XA - FRACTURE OF ONE RIB, UNSP SIDE, INIT FOR CLOS FX (42) S/P ablation of atrial fibrillation Code(s): Z98.890 - OTHER SPECIFIED POSTPROCEDURAL STATES; Z86.79 - PERSONAL HISTORY OF OTHER DISEASES OF THE CIRCULATORY SYSTEM (43) SOB (shortness of breath) Code(s): R06.02 - SHORTNESS OF BREATH (44) Sepsis Code(s): A41.9 - SEPSIS, UNSPECIFIED ORGANISM (45) Atrial fibrillation Code(s): I48.91 - UNSPECIFIED ATRIAL FIBRILLATION (46) CAD (coronary artery disease) Code(s): I25.10 - ATHSCL HEART DISEASE OF [place] CORONARY ARTERY W/O ANG PCTRS Qualifiers: (47) COPD (chronic obstructive pulmonary disease) Code(s): J44.9 - CHRONIC OBSTRUCTIVE PULMONARY DISEASE, UNSPECIFIED Qualifiers: (48) Chronic abdominal pain Code(s): R10.9 - UNSPECIFIED ABDOMINAL PAIN; G89.29 - OTHER CHRONIC PAIN (49) Chronic back pain Code(s): M54.9 - DORSALGIA, UNSPECIFIED; G89.29 - OTHER CHRONIC PAIN (50) Chronic diastolic heart failure Code(s): I50.32 - CHRONIC DIASTOLIC (CONGESTIVE) HEART FAILURE (51) Constipation Code(s): K59.00 - CONSTIPATION, UNSPECIFIED (52) History of coronary artery stent placement Code(s): Z95.5 - PRESENCE OF CORONARY ANGIOPLASTY IMPLANT AND GRAFT (53) Hyperlipidemia Code(s): E78.5 - HYPERLIPIDEMIA, UNSPECIFIED (54) Hypertension Code(s): I10 - ESSENTIAL (PRIMARY) HYPERTENSION Assessment/Plan ASSESSMENT: 1. CAD post PCI/stent with evidence of demand ischemic injury angina pectoris, nonstemi 2. Diastolic LV dysfunction with class 0-I NYHA classification LV failure, clinically compensated 3. PAF [id number] score of 4 on A/C with Coumadin 4. Aortic stenosis 5. HTN 6. Hypercholesterolemia 7. COPD exacerbation, resolved 8. GERD PLAN: 1. hold Coumadin . Start IV heparin when inr below 2 close monitoring of CBC, c. cath and revascularization tomorrow. 2. Continue ASA and Effient with caution, but preferably a single agent should be continued in view of concomitant Coumadin administration (higher bleed risk) 3. Continue Amiodarone 4. Continue Cardizem CD but ideally B-Blockers should be added unless contraindicated 5. Continue Imdur and Ranexa 6. Continue Lisinopril 7. Continue Lipitor and Trilipix 8. Continue Lasix but change to PO
[2018-09-06] MEDS: ALBUTEROL SO4 2.5/IPRATROPIUM 0.5 INH SOL 3 ML VIAL.NEB. NEB SCH ×3 (12:00→20:11)
--- NOTE | 2018-09-06 13:44 | PN ---
Progress Note, Physician History of Present Illness: PULMONARY ALERT,COMFORTABLE,-RESP DISTRESS,-CP - Current Medication List Current Medications: Active Medications Acetaminophen (Tylenol -) 650 mg PO Q4H PRN PRN Reason: FEVER Last Admin: 09/03/18 16:36 Dose: 650 mg Albuterol Sulfate (Ventolin Hfa Inhaler -) 2 puff IH Q6H PRN PRN Reason: SHORTNESS OF BREATH Albuterol/Ipratropium (Duoneb -) 1 amp NEB RQID [facility] Last Admin: 09/06/18 12:00 Dose: 1 amp Amiodarone HCl (Cordarone -) 100 mg PO DAILY [facility] Last Admin: 09/06/18 10:00 Dose: 100 mg Aspirin (Asa -) 81 mg PO ACDIN [facility] Last Admin: 09/05/18 17:12 Dose: 81 mg Atorvastatin Calcium (Lipitor -) 40 mg PO HS [facility] Last Admin: 09/05/18 22:11 Dose: 40 mg Diltiazem HCl (Cardizem Cd -) 180 mg PO DAILY [facility] Last Admin: 09/06/18 10:00 Dose: 180 mg Fenofibric Acid (Trilipix -) 135 mg PO DAILY [facility] Last Admin: 09/06/18 10:05 Dose: 135 mg Furosemide (Lasix -) 40 mg PO DAILY [facility] Last Admin: 09/06/18 10:04 Dose: 40 mg Hyoscyamine Sulfate (Levsin Odt -) 0.125 mg PO Q6H PRN PRN Reason: ABDOMINAL PAIN Isosorbide Mononitrate (Imdur -) 60 mg PO DAILY [facility] Last Admin: 09/06/18 10:04 Dose: 60 mg Lisinopril (Prinivil) 5 mg PO [facility] Last Admin: 09/05/18 22:11 Dose: 5 mg Metoclopramide HCl (Reglan -) 5 mg PO TIDAC PRN PRN Reason: NAUSEA Non-Formulary Medication (Patient's Own Med) 1 each PO DAILY [facility] Linzess 145mcg (Non- (Formulary Med)) 1 each PO DAILY [facility] Last Admin: 09/06/18 10:06 Dose: 1 each Oxycodone HCl (Roxicodone -) 30 mg PO HS [facility] Last Admin: 09/05/18 22:11 Dose: 30 mg Oxycodone HCl (Roxicodone -) 10 mg PO 0600,1000,1400,1800 PRN PRN Reason: PAIN LEVEL 6-10 Last Admin: 09/06/18 10:08 Dose: 10 mg Pantoprazole Sodium (Protonix Iv) 40 mg IVPUSH DAILY [facility] Last Admin: 09/06/18 10:10 Dose: 40 mg Prasugrel (Effient -) 5 mg PO DAILY [facility] Last Admin: 09/06/18 10:06 Dose: 5 mg Prednisone (Deltasone -) 20 mg PO BID [facility] Last Admin: 09/06/18 10:00 Dose: 20 mg Ranitidine HCl (Zantac -) 150 mg PO DAILY [facility] Last Admin: 09/06/18 10:04 Dose: 150 mg Ranolazine (Ranexa -) 1,000 mg PO BID [facility] Last Admin: 09/06/18 10:04 Dose: 1,000 mg Sertraline HCl (Zoloft -) 50 mg PO DAILY [facility] Last Admin: 09/06/18 10:05 Dose: 50 mg Sucralfate (Carafate -) 1 gm PO BID [facility] Last Admin: 09/06/18 10:05 Dose: 1 gm Tamsulosin HCl (Flomax -) 0.4 mg PO HS [facility] Last Admin: 09/05/18 22:11 Dose: 0.4 mg - Objective Vital Signs: Vital Signs Temperature 98.5 F 09/06/18 10:00 Pulse Rate 92 H 09/06/18 10:00 Respiratory Rate 20 09/06/18 10:00 Blood Pressure 121/66 09/06/18 10:00 O2 Sat by Pulse Oximetry (%) 99 09/06/18 09:00 Constitutional: Yes: Well Nourished, Obese Eyes: Yes: WNL HENT: Yes: WNL Neck: Yes: WNL Cardiovascular: Yes: Pulse Irregular, S1, S2 Respiratory: Yes: CTA Bilaterally Gastrointestinal: Yes: Normal Bowel Sounds, Soft Extremities: Yes: WNL Edema: No Labs: CBC, BMP 09/05/18 06:15 09/06/18 07:25 INR, PTT INR 2.65 (0.83-1.09) H 09/06/18 09:37 Assessment/Plan Problem List - Problems (1) Chest pain Code(s): R07.9 - CHEST PAIN, UNSPECIFIED Qualifiers: Chest pain type: unspecified Qualified Code(s): R07.9 - Chest pain, unspecified (2) Elevated troponin Code(s): R79.89 - OTHER SPECIFIED ABNORMAL FINDINGS OF BLOOD CHEMISTRY (3) GERD (gastroesophageal reflux disease) Code(s): K21.9 - GASTRO-ESOPHAGEAL REFLUX DISEASE WITHOUT ESOPHAGITIS (4) Acute exacerbation of CHF (congestive heart failure) Code(s): I50.9 - HEART FAILURE, UNSPECIFIED (5) Aortic stenosis Code(s): I35.0 - NONRHEUMATIC AORTIC (VALVE) STENOSIS (6) CAD (coronary artery disease) Code(s): I25.10 - ATHSCL HEART DISEASE OF [place] CORONARY ARTERY W/O ANG PCTRS (7) Dyspnea Code(s): R06.00 - DYSPNEA, UNSPECIFIED (8) Obstructive sleep apnea Code(s): G47.33 - OBSTRUCTIVE SLEEP APNEA (ADULT) (PEDIATRIC) (9) PAF (paroxysmal atrial fibrillation) Code(s): I48.0 - PAROXYSMAL ATRIAL FIBRILLATION IMP: Acute hypercapneic hypoxemic respiratory failure improved Acute pulmonary edema COPD Doubt acute pneumonia ASHD CHF NOREEN pt non-compliant with cpap AFIB + TROPONIN Lasix O2 as needed Needs optimization of OSAS as an outpatient Prednisone Cardiac cath DAILY WT t DR MIRANDA
--- NOTE | 2018-09-06 14:50 | EKG ---
Test Reason : Blood Pressure : / mmHG Vent. Rate : 094 BPM Atrial Rate : 094 BPM P-R Int : 188 ms QRS Dur : 152 ms QT Int : 416 ms P-R-T Axes : 079 -76 048 degrees QTc Int : 520 ms SINUS RHYTHM WITH PREMATURE ATRIAL COMPLEXES RIGHT BUNDLE BRANCH BLOCK LEFT ANTERIOR FASCICULAR BLOCK BIFASCICULAR BLOCK POSSIBLE LATERAL INFARCT (CITED ON OR BEFORE 06-SEP-2018) INFERIOR INFARCT (CITED ON OR BEFORE 06-SEP-2018) ABNORMAL ECG WHEN COMPARED WITH ECG OF 01-SEP-2018 05:10, PREMATURE ATRIAL COMPLEXES ARE NOW PRESENT SERIAL CHANGES OF LATERAL INFARCT PRESENT Confirmed by HECTOR GUADALUPE, SCOTT ([id number]) on 09/06/2018 2:50:35 PM Referred By: Aaliyah DUDLEY Confirmed By:SCOTT YOUNG MD
[2018-09-06] MEDS: ASPIRIN 81 MG CHEWABLE TABLETS PO SCH (16:11)
[2018-09-06] MEDS ORDERED: oxyCODONE HCL 5 MG TABLET PO ONE (19:09)
[2018-09-06] MEDS ORDERED: LIDOCAINE 5% TOPICAL PATCH TP ONE (19:09)
[2018-09-06] MEDS ORDERED: POLYETHYLENE GLYCOL 3350 119 GM BTL PO ONE (19:10)
[2018-09-06] MEDS: TAMSULOSIN HCL 0.4 MG CAP PO SCH (21:17)
[2018-09-06] MEDS: LISINOPRIL 5 MG TABLET (FP) PO SCH (21:17)
[2018-09-06] MEDS: oxyCODONE HCL 5 MG TABLET PO SCH (21:17)
[2018-09-06] MEDS: ATORVASTATIN CA 40 MG TABLET (FP) PO SCH (21:17)
[2018-09-06] MEDS ORDERED: LIDOCAINE PATCH REMOVAL MC SCH (22:00)
[2018-09-06] MEDS ORDERED: DOCUSATE SODIUM 100 MG CAPSULE (FP) PO SCH (22:00)
[2018-09-07] MEDS: oxyCODONE HCL 5 MG TABLET PO PRN ×3 (05:57→14:12)
[2018-09-07 08:01] LABS: INR 1.99 (0.83-1.09); PROTHROMBIN TIME (PATIENT) 23.6 SEC (9.7-13.0)
[2018-09-07] MEDS: ALBUTEROL SO4 2.5/IPRATROPIUM 0.5 INH SOL 3 ML VIAL.NEB. NEB SCH ×4 (08:29→20:36)
[2018-09-07] MEDS ORDERED: PHYTONADIONE 10 MG/1 ML AMP IVPB ONE (09:56)
[2018-09-07] MEDS: RANITIDINE HCL 150 MG TABLET (FP) PO SCH (10:12)
[2018-09-07] MEDS: FUROSEMIDE 40 MG TABLET (FP) PO SCH (10:13)
[2018-09-07] MEDS: AMIODARONE HCL 200 MG TABLET (FP) PO SCH (10:13)
[2018-09-07] MEDS: RANOLAZINE E.R. 1,000 MG TABLET (FP) PO SCH ×2 (10:13→21:04)
[2018-09-07] MEDS: ISOSORBIDE MONONITRATE 60 MG TAB.SR.24H (FP) PO SCH (10:13)
[2018-09-07] MEDS: predniSONE 20 MG TABLET (UD) PO SCH ×2 (10:14→21:03)
[2018-09-07] MEDS: PANTOPRAZOLE SODIUM 40 MG VIAL IVPUSH SCH (10:14)
[2018-09-07] MEDS ORDERED: PT OWN MED DRAWER 7, Y5N ONE ×4 (10:19→21:02)
[2018-09-07] MEDS: SUCRALFATE 1 GM TABLET (FP) PO SCH ×2 (10:20→21:04)
[2018-09-07] MEDS: FENOFIBRIC ACID 135 MG CAP PO SCH (10:20)
[2018-09-07] MEDS: LINZESS 145 MCG PO SCH (10:21)
[2018-09-07] MEDS: PRASUGREL HCL 5 MG TAB PO SCH (10:22)
[2018-09-07] MEDS: SERTRALINE HCL 50 MG TABLET (FP) PO SCH (10:44)
--- NOTE | 2018-09-07 11:01 | PN ---
Progress Note, Physician Chief Complaint: no cp History of Present Illness: 63 year old male with PMHX A-fib (on Coumadin), aortic stenosis, CAD(post multiple stent placement), COPD, CHF, GERD,BPH, Depression, HTN/HLD, and SVT present to the ED for Chest pain and SOB (pain is sharp/ stabbing like on left side,intermittent, non-radiating associated with sob and worse with exertion. Patient has had recent Cardiac Cath at [facility] without stent placement. Patient did take ASA prior to coming to ED. Patient denies fever, chills at this time. PMH Past medical history Major events s/p multiple coronary stents s/p PTCA of distal OM1 (12/24/10) s/p pulmonary vein isolation procedures (ablation) x 2 for Atrial Fibrillation Cardiac Cath [facility] 01-17-09 Coronary Angiography [facility] 11-04-09 Cardiac Cath [facility] 12-31-09 Cardiac Cath [facility] 06-01-10 Cardiac Cath [facility] 06-22-10 Cardiac Cath [facility] 12-24-10 Cardiac Cath [facility] 03-17-12 Cardiac Cath [facility] 05-11-12 Cardiac Surgery 06-01-12 Cardiac Cath [facility] 03-28-15 Cardiac Cath [facility] 03-28-15 Cardiac Cath [facility] 03-12-16 Cardiac Cath [facility] 08-24-18 Triple vessel disease as described: Left Main 30% LAD proximal 30%, and mid 50%, proximal stent patent with 30% ISR, mid stent patent with 30% ISR, distal stent patent with 30% ISR, distal 80% tapers to small caliber vessel D1 90% large vessel LCx mid 40% OM1 100% ISR previous stent sites OM2 100% RCA mid stent site 40% ISR, distal RCA site patent widely, distal RCA 70-80% RPDA previous stent sites patent RV branch 100% Right to left, left to right and left to left collaterals coronary artery disease Patent stent: Left Anterior Descending - proximal ad mid segments Patent stent: Right Coronary Artery - mod and distal segments Patent stent: Right Posterior Descending Instent restenosis: 1st Obtuse Marginal Severe aortic stenosis Mild to Moderate aortic insufficiency Mild Pulmonary Hypertension Severe aortic valve stenosis with GEORGE calculated ~ 0.9-0.99 cm2 and mean gradient across valve measured ~ 23 mmHg LVEDP ~10 mmHg PASP measured up to 40 mmHg Mean RA pressure ~ 11 mmHg Mean PCW ~ 18 mmHg Ongoing medical problems Medical history: angina pectoris obstructive sleep apnea Anxiety Atrial fibrillation-->ablation Rx CAD: s/p multiple PCIs; the latest 12/08: patent mid LAD and RPDA prior stents; PTCA of distal OM1; latest angiograms 04/15 and 03/16: non-obstructive CAD Congestive heart failure (diastolic) COPD Hypercholesterolemia Hypertension Moderate aortic regurgitation Obesity s/p pulmonary vein ablation x 2 for PAF, most recently at [facility] (followed by Dr. Fam Pollock) - Current Medication List Current Medications: Active Medications Acetaminophen (Tylenol -) 650 mg PO Q4H PRN PRN Reason: FEVER Last Admin: 09/03/18 16:36 Dose: 650 mg Albuterol Sulfate (Ventolin Hfa Inhaler -) 2 puff IH Q6H PRN PRN Reason: SHORTNESS OF BREATH Albuterol/Ipratropium (Duoneb -) 1 amp NEB RQID [facility] Last Admin: 09/07/18 08:29 Dose: 1 amp Amiodarone HCl (Cordarone -) 100 mg PO DAILY [facility] Last Admin: 09/07/18 10:13 Dose: 100 mg Aspirin (Asa -) 81 mg PO ACDIN [facility] Last Admin: 09/06/18 16:11 Dose: 81 mg Atorvastatin Calcium (Lipitor -) 40 mg PO HS [facility] Last Admin: 09/06/18 21:17 Dose: 40 mg Diltiazem HCl (Cardizem Cd -) 180 mg PO DAILY [facility] Last Admin: 09/07/18 10:14 Dose: 180 mg Docusate Sodium (Colace -) 300 mg PO HS [facility] Last Admin: 09/06/18 21:17 Dose: 300 mg Fenofibric Acid (Trilipix -) 135 mg PO DAILY [facility] Last Admin: 09/07/18 10:20 Dose: 135 mg Furosemide (Lasix -) 40 mg PO DAILY [facility] Last Admin: 09/07/18 10:13 Dose: 40 mg Hyoscyamine Sulfate (Levsin Odt -) 0.125 mg PO Q6H PRN PRN Reason: ABDOMINAL PAIN Isosorbide Mononitrate (Imdur -) 60 mg PO DAILY [facility] Last Admin: 09/07/18 10:13 Dose: 60 mg Lisinopril (Prinivil) 5 mg PO HS [facility] Last Admin: 09/06/18 21:17 Dose: 5 mg Metoclopramide HCl (Reglan -) 5 mg PO TIDAC PRN PRN Reason: NAUSEA Miscellaneous (Lidoderm Patch Removal) 1 each MC DAILY@2200 [facility] Last Admin: 09/06/18 21:24 Dose: Not Given Non-Formulary Medication (Patient's Own Med) 1 each PO DAILY [facility] Linzess 145mcg (Non- (Formulary Med)) 1 each PO DAILY [facility] Last Admin: 09/07/18 10:21 Dose: 1 each Oxycodone HCl (Roxicodone -) 30 mg PO HS [facility] Last Admin: 09/06/18 21:17 Dose: 30 mg Oxycodone HCl (Roxicodone -) 10 mg PO 0600,1000,1400,1800 PRN PRN Reason: PAIN LEVEL 6-10 Last Admin: 09/07/18 10:12 Dose: 10 mg Pantoprazole Sodium (Protonix Iv) 40 mg IVPUSH DAILY [facility] Last Admin: 09/07/18 10:14 Dose: 40 mg Prasugrel (Effient -) 5 mg PO DAILY [facility] Last Admin: 09/07/18 10:22 Dose: 5 mg Prednisone (Deltasone -) 20 mg PO BID [facility] Last Admin: 09/07/18 10:14 Dose: 20 mg Ranitidine HCl (Zantac -) 150 mg PO DAILY [facility] Last Admin: 09/07/18 10:12 Dose: 150 mg Ranolazine (Ranexa -) 1,000 mg PO BID [facility] Last Admin: 09/07/18 10:13 Dose: 1,000 mg Sertraline HCl (Zoloft -) 50 mg PO DAILY [facility] Last Admin: 09/07/18 10:44 Dose: 50 mg Sucralfate (Carafate -) 1 gm PO BID [facility] Last Admin: 09/07/18 10:20 Dose: 1 gm Tamsulosin HCl (Flomax -) 0.4 mg PO HS [facility] Last Admin: 09/06/18 21:17 Dose: 0.4 mg - Objective Vital Signs: Vital Signs Temperature 97.7 F 09/07/18 10:00 Pulse Rate 82 09/07/18 10:00 Respiratory Rate 20 09/07/18 10:00 Blood Pressure 123/74 09/07/18 10:00 O2 Sat by Pulse Oximetry (%) 95 09/06/18 21:00 Eyes: Yes: WNL, Conjunctiva Clear, EOM Intact HENT: Yes: WNL, Atraumatic, Normocephalic Neck: Yes: WNL, Supple, Trachea Midline Cardiovascular: Yes: WNL, Regular Rate and Rhythm Respiratory: Yes: WNL, Regular, CTA Bilaterally Gastrointestinal: Yes: WNL, Normal Bowel Sounds Genitourinary: Yes: WNL Musculoskeletal: Yes: WNL Extremities: Yes: WNL Edema: No Integumentary: Yes: WNL Neurological: Yes: WNL, Alert, Oriented ...Motor Strength: WNL Psychiatric: Yes: WNL Labs: CBC, BMP 09/05/18 06:15 09/06/18 07:25 INR, PTT INR 1.99 (0.83-1.09) H 09/07/18 05:20 Problem List - Problems (1) Acute exacerbation of COPD with asthma Code(s): J44.1 - CHRONIC OBSTRUCTIVE PULMONARY DISEASE W (ACUTE) EXACERBATION; J45.901 - UNSPECIFIED ASTHMA WITH (ACUTE) EXACERBATION (2) BPH (benign prostatic hyperplasia) Code(s): N40.0 - BENIGN PROSTATIC HYPERPLASIA WITHOUT LOWER URINRY TRACT SYMP (3) COPD (chronic obstructive pulmonary disease) Code(s): J44.9 - CHRONIC OBSTRUCTIVE PULMONARY DISEASE, UNSPECIFIED Qualifiers: COPD type: unspecified COPD Qualified Code(s): J44.9 - Chronic obstructive pulmonary disease, unspecified (4) Chest pain Code(s): R07.9 - CHEST PAIN, UNSPECIFIED Qualifiers: Chest pain type: unspecified Qualified Code(s): R07.9 - Chest pain, unspecified (5) Depression Code(s): F32.9 - MAJOR DEPRESSIVE DISORDER, SINGLE EPISODE, UNSPECIFIED (6) Elevated troponin Code(s): R79.89 - OTHER SPECIFIED ABNORMAL FINDINGS OF BLOOD CHEMISTRY (7) GERD (gastroesophageal reflux disease) Code(s): K21.9 - GASTRO-ESOPHAGEAL REFLUX DISEASE WITHOUT ESOPHAGITIS (8) TRACY (acute kidney injury) Code(s): N17.9 - ACUTE KIDNEY FAILURE, UNSPECIFIED (9) Acute coronary syndrome Code(s): I24.9 - ACUTE ISCHEMIC HEART DISEASE, UNSPECIFIED (10) Acute exacerbation of CHF (congestive heart failure) Code(s): I50.9 - HEART FAILURE, UNSPECIFIED (11) Acute on chronic diastolic (congestive) heart failure Code(s): I50.33 - ACUTE ON CHRONIC DIASTOLIC (CONGESTIVE) HEART FAILURE (12) Aortic stenosis Code(s): I35.0 - NONRHEUMATIC AORTIC (VALVE) STENOSIS (13) Atypical chest pain Code(s): R07.89 - OTHER CHEST PAIN (14) Bifascicular bundle branch block Code(s): I45.2 - BIFASCICULAR BLOCK (15) CAD (coronary artery disease) Code(s): I25.10 - ATHSCL HEART DISEASE OF [place] CORONARY ARTERY W/O ANG PCTRS (16) CAP (community acquired pneumonia) Code(s): J18.9 - PNEUMONIA, UNSPECIFIED ORGANISM Qualifiers: (17) CHF (congestive heart failure) Code(s): I50.9 - HEART FAILURE, UNSPECIFIED (18) COPD exacerbation Code(s): J44.1 - CHRONIC OBSTRUCTIVE PULMONARY DISEASE W (ACUTE) EXACERBATION (19) Chest heaviness Code(s): R07.89 - OTHER CHEST PAIN (20) Contusion of rib on right side Code(s): S20.211A - CONTUSION OF RIGHT FRONT WALL OF THORAX, INITIAL ENCOUNTER (21) Demand ischemia Code(s): I24.8 - OTHER FORMS OF ACUTE ISCHEMIC HEART DISEASE (22) Dyspnea Code(s): R06.00 - DYSPNEA, UNSPECIFIED (23) Epigastric abdominal pain Code(s): R10.13 - EPIGASTRIC PAIN (24) Epistaxis Code(s): R04.0 - EPISTAXIS (25) Hypertriglyceridemia Code(s): E78.1 - PURE HYPERGLYCERIDEMIA (26) Hypokalemia Code(s): E87.6 - HYPOKALEMIA (27) Hypotension Code(s): I95.9 - HYPOTENSION, UNSPECIFIED (28) Hypothyroid Code(s): E03.9 - HYPOTHYROIDISM, UNSPECIFIED (29) LPRD (laryngopharyngeal reflux disease) Code(s): K21.9 - GASTRO-ESOPHAGEAL REFLUX DISEASE WITHOUT ESOPHAGITIS (30) Leg pain Code(s): M79.606 - PAIN IN LEG, UNSPECIFIED (31) Myocardial disease Code(s): I51.5 - MYOCARDIAL DEGENERATION (32) Nausea Code(s): R11.0 - NAUSEA (33) Obesity Code(s): E66.9 - OBESITY, UNSPECIFIED (34) Obstructive sleep apnea Code(s): G47.33 - OBSTRUCTIVE SLEEP APNEA (ADULT) (PEDIATRIC) (35) On amiodarone therapy Code(s): Z79.899 - OTHER FDC (CURRENT) DRUG THERAPY (36) PAF (paroxysmal atrial fibrillation) Code(s): I48.0 - PAROXYSMAL ATRIAL FIBRILLATION (37) Pleural effusion Code(s): J90 - PLEURAL EFFUSION, NOT ELSEWHERE CLASSIFIED (38) Pleuritic chest pain Code(s): R07.81 - PLEURODYNIA (39) Pneumonia Code(s): J18.9 - PNEUMONIA, UNSPECIFIED ORGANISM (40) Presence of stent in coronary artery in patient with coronary artery disease Code(s): I25.10 - ATHSCL HEART DISEASE OF [place] CORONARY ARTERY W/O ANG PCTRS; Z95.5 - PRESENCE OF CORONARY ANGIOPLASTY IMPLANT AND GRAFT (41) Rib fractures Code(s): S22.39XA - FRACTURE OF ONE RIB, UNSP SIDE, INIT FOR CLOS FX (42) S/P ablation of atrial fibrillation Code(s): Z98.890 - OTHER SPECIFIED POSTPROCEDURAL STATES; Z86.79 - PERSONAL HISTORY OF OTHER DISEASES OF THE CIRCULATORY SYSTEM (43) SOB (shortness of breath) Code(s): R06.02 - SHORTNESS OF BREATH (44) Sepsis Code(s): A41.9 - SEPSIS, UNSPECIFIED ORGANISM (45) Atrial fibrillation Code(s): I48.91 - UNSPECIFIED ATRIAL FIBRILLATION (46) CAD (coronary artery disease) Code(s): I25.10 - ATHSCL HEART DISEASE OF [place] CORONARY ARTERY W/O ANG PCTRS Qualifiers: (47) COPD (chronic obstructive pulmonary disease) Code(s): J44.9 - CHRONIC OBSTRUCTIVE PULMONARY DISEASE, UNSPECIFIED Qualifiers: (48) Chronic abdominal pain Code(s): R10.9 - UNSPECIFIED ABDOMINAL PAIN; G89.29 - OTHER CHRONIC PAIN (49) Chronic back pain Code(s): M54.9 - DORSALGIA, UNSPECIFIED; G89.29 - OTHER CHRONIC PAIN (50) Chronic diastolic heart failure Code(s): I50.32 - CHRONIC DIASTOLIC (CONGESTIVE) HEART FAILURE (51) Constipation Code(s): K59.00 - CONSTIPATION, UNSPECIFIED (52) History of coronary artery stent placement Code(s): Z95.5 - PRESENCE OF CORONARY ANGIOPLASTY IMPLANT AND GRAFT (53) Hyperlipidemia Code(s): E78.5 - HYPERLIPIDEMIA, UNSPECIFIED (54) Hypertension Code(s): I10 - ESSENTIAL (PRIMARY) HYPERTENSION Assessment/Plan ASSESSMENT: 1. CAD post PCI/stent with evidence of demand ischemic injury angina pectoris, nonstemi 2. Diastolic LV dysfunction with class 0-I NYHA classification LV failure, clinically compensated 3. PAF [id number] score of 4 on A/C with Coumadin 4. Aortic stenosis 5. HTN 6. Hypercholesterolemia 7. COPD exacerbation, resolved 8. GERD PLAN: 1. hold Coumadin . Start IV heparin when inr below 2 close monitoring of CBC, c. cath and revascularization tomorrow. 2. Continue ASA and Effient with caution, but preferably a single agent should be continued in view of concomitant Coumadin administration (higher bleed risk) 3. Continue Amiodarone 4. Continue Cardizem CD but ideally B-Blockers should be added unless contraindicated 5. Continue Imdur and Ranexa 6. Continue Lisinopril 7. Continue Lipitor and Trilipix 8. Continue Lasix but change to PO
--- NOTE | 2018-09-07 12:27 | PN ---
Progress Note, Physician Chief Complaint: CHF Afib COPD History of Present Illness: Others' Prescriptions Patient Name: Phong Candelario Date: 1955 Address: [address] [place] [address] Sex: Male Rx Written Rx Dispensed Drug Quantity Days Supply Prescriber Name 08/30/2018 08/30/2018 oxycodone-acetaminophen 10-325 mg tablet 120 30 InnBari hoang MD 06/19/2018 06/19/2018 oxycodone-acetaminophen 10-325 mg tab 120 30 InnBari hoang MD 06/19/2018 06/19/2018 oxycodone hcl 30 mg tablet 30 30 InnabiBari MD 05/19/2018 05/20/2018 oxycodone hcl 30 mg tablet 30 30 InnabiBari MD 05/19/2018 05/20/2018 oxycodone-acetaminophen 10-325 mg tablet 120 30 InnabiBari MD 04/22/2018 04/22/2018 oxycodone-acetaminophen 10-325 mg tablet 120 30 InnabiBari MD 04/22/2018 04/22/2018 oxycodone hcl 30 mg tablet 30 30 InnabiBari MD 03/17/2018 03/20/2018 oxycodone-acetaminophen 10-325 mg tablet 120 30 InnabiBari MD nad family at bedside Troponin trend noted, pt denies any CP, SOB is improving Seen by Cardiology warfarin on hold for transfer to [place] for cath - Current Medication List Current Medications: Active Medications Acetaminophen (Tylenol -) 650 mg PO Q4H PRN PRN Reason: FEVER Last Admin: 09/03/18 16:36 Dose: 650 mg Albuterol Sulfate (Ventolin Hfa Inhaler -) 2 puff IH Q6H PRN PRN Reason: SHORTNESS OF BREATH Albuterol/Ipratropium (Duoneb -) 1 amp NEB RQID [facility] Last Admin: 09/07/18 08:29 Dose: 1 amp Amiodarone HCl (Cordarone -) 100 mg PO DAILY [facility] Last Admin: 09/07/18 10:13 Dose: 100 mg Aspirin (Asa -) 81 mg PO ACDIN [facility] Last Admin: 09/06/18 16:11 Dose: 81 mg Atorvastatin Calcium (Lipitor -) 40 mg PO HS [facility] Last Admin: 09/06/18 21:17 Dose: 40 mg Diltiazem HCl (Cardizem Cd -) 180 mg PO DAILY [facility] Last Admin: 09/07/18 10:14 Dose: 180 mg Docusate Sodium (Colace -) 300 mg PO HS [facility] Last Admin: 09/06/18 21:17 Dose: 300 mg Fenofibric Acid (Trilipix -) 135 mg PO DAILY [facility] Last Admin: 09/07/18 10:20 Dose: 135 mg Furosemide (Lasix -) 40 mg PO DAILY [facility] Last Admin: 09/07/18 10:13 Dose: 40 mg Hyoscyamine Sulfate (Levsin Odt -) 0.125 mg PO Q6H PRN PRN Reason: ABDOMINAL PAIN Isosorbide Mononitrate (Imdur -) 60 mg PO DAILY [facility] Last Admin: 09/07/18 10:13 Dose: 60 mg Lisinopril (Prinivil) [address] [facility] Last Admin: 09/06/18 21:17 Dose: 5 mg Metoclopramide HCl (Reglan -) 5 mg PO TIDAC PRN PRN Reason: NAUSEA Miscellaneous (Lidoderm Patch Removal) 1 each MC DAILY@2200 [facility] Last Admin: 09/06/18 21:24 Dose: Not Given Non-Formulary Medication (Patient's Own Med) 1 each PO DAILY [facility] Linzess 145mcg (Non- (Formulary Med)) 1 each PO DAILY [facility] Last Admin: 09/07/18 10:21 Dose: 1 each Oxycodone HCl (Roxicodone -) 30 mg PO [facility] Last Admin: 09/06/18 21:17 Dose: 30 mg Oxycodone HCl (Roxicodone -) 10 mg PO 0600,1000,1400,1800 PRN PRN Reason: PAIN LEVEL 6-10 Last Admin: 09/07/18 10:12 Dose: 10 mg Pantoprazole Sodium (Protonix Iv) 40 mg IVPUSH DAILY [facility] Last Admin: 09/07/18 10:14 Dose: 40 mg Prasugrel (Effient -) 5 mg PO DAILY [facility] Last Admin: 09/07/18 10:22 Dose: 5 mg Prednisone (Deltasone -) 20 mg PO BID [facility] Last Admin: 09/07/18 10:14 Dose: 20 mg Ranitidine HCl (Zantac -) 150 mg PO DAILY [facility] Last Admin: 09/07/18 10:12 Dose: 150 mg Ranolazine (Ranexa -) 1,000 mg PO BID [facility] Last Admin: 09/07/18 10:13 Dose: 1,000 mg Sertraline HCl (Zoloft -) 50 mg PO DAILY [facility] Last Admin: 09/07/18 10:44 Dose: 50 mg Sucralfate (Carafate -) 1 gm PO BID [facility] Last Admin: 09/07/18 10:20 Dose: 1 gm Tamsulosin HCl (Flomax -) 0.4 mg PO HS [facility] Last Admin: 09/06/18 21:17 Dose: 0.4 mg - Objective Vital Signs: Vital Signs Temperature 97.7 F 09/07/18 10:00 Pulse Rate 82 09/07/18 10:00 Respiratory Rate 20 09/07/18 10:00 Blood Pressure 123/74 09/07/18 10:00 O2 Sat by Pulse Oximetry (%) 97 09/07/18 09:00 Constitutional: Yes: Well Nourished, No Distress, Calm, Obese Cardiovascular: Yes: Regular Rate and Rhythm Respiratory: Yes: Regular, On Nasal O2 Gastrointestinal: Yes: Normal Bowel Sounds, Soft, Abdomen, Obese Genitourinary: Yes: WNL Musculoskeletal: Yes: WNL Extremities: Yes: WNL Edema: No Peripheral Pulses WNL: Yes Neurological: Yes: Alert, Oriented Psychiatric: Yes: Alert, Oriented Labs: CBC, BMP 09/05/18 06:15 09/06/18 07:25 INR, PTT INR 1.99 (0.83-1.09) H 09/07/18 05:20 Assessment/Plan (1) Acute exacerbation of COPD with asthma Assessment/Plan: -Pulm on board -Bronchodilators -Bipap as needed -O2 via NC -keep SpO2 >90% -IV abx dc'd -CXR shows progressive congestive and infiltrative changes with enlarged heart and dense left base Code(s): J44.1 - CHRONIC OBSTRUCTIVE PULMONARY DISEASE W (ACUTE) EXACERBATION; J45.901 - UNSPECIFIED ASTHMA WITH (ACUTE) EXACERBATION (2) BPH (benign prostatic hyperplasia) Assessment/Plan: -Tamsulosin Code(s): N40.0 - BENIGN PROSTATIC HYPERPLASIA WITHOUT LOWER URINRY TRACT SYMP (3) Elevated troponin Assessment/Plan: -tele monitoring -trops peaked, now trending down -started on Heparin drip -Transfer to [place] when bed available Code(s): R79.89 - OTHER SPECIFIED ABNORMAL FINDINGS OF BLOOD CHEMISTRY (4) GERD (gastroesophageal reflux disease) Assessment/Plan: -Pantoprazole Code(s): K21.9 - GASTRO-ESOPHAGEAL REFLUX DISEASE WITHOUT ESOPHAGITIS (5) Chest pain Assessment/Plan: -tele monitoring -trops peaked, now trending down -cardiology on board Code(s): R07.9 - CHEST PAIN, UNSPECIFIED Qualifiers: Chest pain type: unspecified Qualified Code(s): R07.9 - Chest pain, unspecified (6) Atrial fibrillation Assessment/Plan: -warfarin on hold -started on heparin drip -Take Cardizem CD 180 mg at home Code(s): I48.91 - UNSPECIFIED ATRIAL FIBRILLATION (7) CAD (coronary artery disease) Assessment/Plan: -Aspirin and Ranexa Code(s): I25.10 - ATHSCL HEART DISEASE OF [place] CORONARY ARTERY W/O ANG PCTRS Qualifiers: (8) Chronic diastolic heart failure Assessment/Plan: -Cardiology on board -tele monitoring -1L fluid restriction -daily weights -Ranexa, Imdur -Furosemide 40 mg po daily Code(s): I50.32 - CHRONIC DIASTOLIC (CONGESTIVE) HEART FAILURE (9) Pneumonia Assessment/Plan: -CXR shows progressive congestive and infiltrative changes with enlarged heart and dense left base -no leukocytosis -afebrile -Bronchodilators -Pulmonary on board Code(s): J18.9 - PNEUMONIA, UNSPECIFIED ORGANISM
--- NOTE | 2018-09-07 12:59 | PN ---
Progress Note (short form) - Note Progress Note: OOB to chair. Reports breathing is better. Some dry cough. Intake & Output 09/04/18 09/05/18 09/06/18 09/07/18 23:59 23:59 23:59 23:59 Intake Total 800 1290 120 200 Output Total 2 Balance 800 1288 120 200 Weight 246 lb 251 lb 2 oz 252 lb 4 oz 253 lb 4 oz Last Vital Signs Temp Pulse Resp BP Pulse Ox 97.7 F 82 20 123/74 97 09/07/18 10:00 09/07/18 10:00 09/07/18 10:00 09/07/18 10:00 09/07/18 09:00 Active Medications Acetaminophen (Tylenol -) 650 mg PO Q4H PRN PRN Reason: FEVER Last Admin: 09/03/18 16:36 Dose: 650 mg Albuterol Sulfate (Ventolin Hfa Inhaler -) 2 puff IH Q6H PRN PRN Reason: SHORTNESS OF BREATH Albuterol/Ipratropium (Duoneb -) 1 amp NEB RQID [facility] Last Admin: 09/07/18 08:29 Dose: 1 amp Amiodarone HCl (Cordarone -) 100 mg PO DAILY [facility] Last Admin: 09/07/18 10:13 Dose: 100 mg Aspirin (Asa -) 81 mg PO ACDIN [facility] Last Admin: 09/06/18 16:11 Dose: 81 mg Atorvastatin Calcium (Lipitor -) 40 mg PO HS [facility] Last Admin: 09/06/18 21:17 Dose: 40 mg Diltiazem HCl (Cardizem Cd -) 180 mg PO DAILY [facility] Last Admin: 09/07/18 10:14 Dose: 180 mg Docusate Sodium (Colace -) 300 mg PO HS [facility] Last Admin: 09/06/18 21:17 Dose: 300 mg Fenofibric Acid (Trilipix -) 135 mg PO DAILY [facility] Last Admin: 09/07/18 10:20 Dose: 135 mg Furosemide (Lasix -) 40 mg PO DAILY [facility] Last Admin: 09/07/18 10:13 Dose: 40 mg Hyoscyamine Sulfate (Levsin Odt -) 0.125 mg PO Q6H PRN PRN Reason: ABDOMINAL PAIN Isosorbide Mononitrate (Imdur -) 60 mg PO DAILY [facility] Last Admin: 09/07/18 10:13 Dose: 60 mg Lisinopril (Prinivil) 5 mg PO HS [facility] Last Admin: 09/06/18 21:17 Dose: 5 mg Metoclopramide HCl (Reglan -) 5 mg PO TIDAC PRN PRN Reason: NAUSEA Miscellaneous (Lidoderm Patch Removal) 1 each MC DAILY@2200 [facility] Last Admin: 09/06/18 21:24 Dose: Not Given Non-Formulary Medication (Patient's Own Med) 1 each PO DAILY [facility] Linzess 145mcg (Non- (Formulary Med)) 1 each PO DAILY [facility] Last Admin: 09/07/18 10:21 Dose: 1 each Oxycodone HCl (Roxicodone -) 30 mg PO HS [facility] Last Admin: 09/06/18 21:17 Dose: 30 mg Oxycodone HCl (Roxicodone -) 10 mg PO 0600,1000,1400,1800 PRN PRN Reason: PAIN LEVEL 6-10 Last Admin: 09/07/18 10:12 Dose: 10 mg Pantoprazole Sodium (Protonix Iv) 40 mg IVPUSH DAILY [facility] Last Admin: 09/07/18 10:14 Dose: 40 mg Prasugrel (Effient -) 5 mg PO DAILY [facility] Last Admin: 09/07/18 10:22 Dose: 5 mg Prednisone (Deltasone -) 20 mg PO BID [facility] Last Admin: 09/07/18 10:14 Dose: 20 mg Ranitidine HCl (Zantac -) 150 mg PO DAILY [facility] Last Admin: 09/07/18 10:12 Dose: 150 mg Ranolazine (Ranexa -) 1,000 mg PO BID [facility] Last Admin: 09/07/18 10:13 Dose: 1,000 mg Sertraline HCl (Zoloft -) 50 mg PO DAILY [facility] Last Admin: 09/07/18 10:44 Dose: 50 mg Sucralfate (Carafate -) 1 gm PO BID [facility] Last Admin: 09/07/18 10:20 Dose: 1 gm Tamsulosin HCl (Flomax -) 0.4 mg PO HS [facility] Last Admin: 09/06/18 21:17 Dose: 0.4 mg Constitutional: Yes: Well Nourished, No Distress, Calm, Obese Cardiovascular: Yes: Regular Rate and Rhythm Respiratory: Yes: Diminished at the bases Gastrointestinal: Yes: Normal Bowel Sounds, Soft, Abdomen, Obese Genitourinary: Yes: WNL Musculoskeletal: Yes: WNL Extremities: Yes: WNL Edema: Yes Peripheral Pulses WNL: Yes Neurological: Yes: Alert, Oriented Psychiatric: Yes: Alert, Oriented Labs: Laboratory Results - last 24 hr 09/07/18 05:20 PT with INR 23.60 H INR 1.99 H Problem List - Problems (1) Chest pain Code(s): R07.9 - CHEST PAIN, UNSPECIFIED Qualifiers: Chest pain type: unspecified Qualified Code(s): R07.9 - Chest pain, unspecified (2) Elevated troponin Code(s): R79.89 - OTHER SPECIFIED ABNORMAL FINDINGS OF BLOOD CHEMISTRY (3) GERD (gastroesophageal reflux disease) Code(s): K21.9 - GASTRO-ESOPHAGEAL REFLUX DISEASE WITHOUT ESOPHAGITIS (4) Acute exacerbation of CHF (congestive heart failure) Code(s): I50.9 - HEART FAILURE, UNSPECIFIED (5) Aortic stenosis Code(s): I35.0 - NONRHEUMATIC AORTIC (VALVE) STENOSIS (6) CAD (coronary artery disease) Code(s): I25.10 - ATHSCL HEART DISEASE OF [place] CORONARY ARTERY W/O ANG PCTRS (7) Dyspnea Code(s): R06.00 - DYSPNEA, UNSPECIFIED (8) Obstructive sleep apnea Code(s): G47.33 - OBSTRUCTIVE SLEEP APNEA (ADULT) (PEDIATRIC) (9) PAF (paroxysmal atrial fibrillation) Code(s): I48.0 - PAROXYSMAL ATRIAL FIBRILLATION IMP: Acute hypercapneic hypoxemic respiratory failure Acute pulmonary edema COPD Doubt acute pneumonia Lasix O2 as needed Needs optimization of OSAS as an outpatient Noted Medrol started today Monitor off ABX Cardiac Telemetry monitoring Dr Muhammad
[2018-09-07] MEDS ORDERED: HEPARIN NA (PORCINE) 5,000 UNITS/ML 1ML VIAL IVPUSH PRN ×2 (16:34)
[2018-09-07] MEDS: HEPARIN INFUSION - 25,000 UNITS/500 ML INFUS.BAG IVPB SCH ×2 (16:57→23:43)
[2018-09-07] MEDS: ASPIRIN 81 MG CHEWABLE TABLETS PO SCH (16:59)
[2018-09-07] MEDS: SIMETHICONE 80 MG TAB.CHEW (FP) PO PRN (18:28)
[2018-09-07] MEDS ORDERED: SODIUM PHOSPHATE/NA BIPHOS 133 ML ENEMA PR ONE (20:27)
[2018-09-07] MEDS: TAMSULOSIN HCL 0.4 MG CAP PO SCH (21:03)
[2018-09-07] MEDS: ATORVASTATIN CA 40 MG TABLET (FP) PO SCH (21:03)
[2018-09-07] MEDS: DOCUSATE SODIUM 100 MG CAPSULE (FP) PO SCH (21:03)
[2018-09-07] MEDS: LISINOPRIL 5 MG TABLET (FP) PO SCH (21:04)
[2018-09-07] MEDS: oxyCODONE HCL 5 MG TABLET PO SCH (21:04)
[2018-09-08] MEDS: DOCUSATE SODIUM 100 MG CAPSULE (FP) PO SCH (05:12)
[2018-09-08] MEDS: oxyCODONE HCL 5 MG TABLET PO PRN ×2 (05:13→10:28)
[2018-09-08] MEDS: SIMETHICONE 80 MG TAB.CHEW (FP) PO PRN (05:14)
--- NOTE | 2018-09-08 07:57 | PN ---
Progress Note, Physician Chief Complaint: no cp History of Present Illness: 63 year old male with PMHX A-fib (on Coumadin), aortic stenosis, CAD(post multiple stent placement), COPD, CHF, GERD,BPH, Depression, HTN/HLD, and SVT present to the ED for Chest pain and SOB (pain is sharp/ stabbing like on left side,intermittent, non-radiating associated with sob and worse with exertion. Patient has had recent Cardiac Cath at [facility] without stent placement. Patient did take ASA prior to coming to ED. Patient denies fever, chills at this time. PMH Past medical history Major events s/p multiple coronary stents s/p PTCA of distal OM1 (12/24/10) s/p pulmonary vein isolation procedures (ablation) x 2 for Atrial Fibrillation Cardiac Cath [facility] 01-17-09 Coronary Angiography [facility] 11-04-09 Cardiac Cath [facility] 12-31-09 Cardiac Cath [facility] 06-01-10 Cardiac Cath [facility] 06-22-10 Cardiac Cath [facility] 12-24-10 Cardiac Cath [facility] 03-17-12 Cardiac Cath [facility] 05-11-12 Cardiac Surgery 06-01-12 Cardiac Cath [facility] 03-28-15 Cardiac Cath [facility] 03-28-15 Cardiac Cath [facility] 03-12-16 Cardiac Cath [facility] 08-24-18 Triple vessel disease as described: Left Main 30% LAD proximal 30%, and mid 50%, proximal stent patent with 30% ISR, mid stent patent with 30% ISR, distal stent patent with 30% ISR, distal 80% tapers to small caliber vessel D1 90% large vessel LCx mid 40% OM1 100% ISR previous stent sites OM2 100% RCA mid stent site 40% ISR, distal RCA site patent widely, distal RCA 70-80% RPDA previous stent sites patent RV branch 100% Right to left, left to right and left to left collaterals coronary artery disease Patent stent: Left Anterior Descending - proximal ad mid segments Patent stent: Right Coronary Artery - mod and distal segments Patent stent: Right Posterior Descending Instent restenosis: 1st Obtuse Marginal Severe aortic stenosis Mild to Moderate aortic insufficiency Mild Pulmonary Hypertension Severe aortic valve stenosis with GEORGE calculated ~ 0.9-0.99 cm2 and mean gradient across valve measured ~ 23 mmHg LVEDP ~10 mmHg PASP measured up to 40 mmHg Mean RA pressure ~ 11 mmHg Mean PCW ~ 18 mmHg Ongoing medical problems Medical history: angina pectoris obstructive sleep apnea Anxiety Atrial fibrillation-->ablation Rx CAD: s/p multiple PCIs; the latest 12/08: patent mid LAD and RPDA prior stents; PTCA of distal OM1; latest angiograms 04/15 and 03/16: non-obstructive CAD Congestive heart failure (diastolic) COPD Hypercholesterolemia Hypertension Moderate aortic regurgitation Obesity s/p pulmonary vein ablation x 2 for PAF, most recently at [facility] (followed by Dr. Fam Pollock) - Current Medication List Current Medications: Active Medications Acetaminophen (Tylenol -) 650 mg PO Q4H PRN PRN Reason: FEVER Last Admin: 09/03/18 16:36 Dose: 650 mg Albuterol Sulfate (Ventolin Hfa Inhaler -) 2 puff IH Q6H PRN PRN Reason: SHORTNESS OF BREATH Albuterol/Ipratropium (Duoneb -) 1 amp NEB RQID [facility] Last Admin: 09/07/18 20:36 Dose: 1 amp Amiodarone HCl (Cordarone -) 100 mg PO DAILY [facility] Last Admin: 09/07/18 10:13 Dose: 100 mg Aspirin (Asa -) 81 mg PO ACDIN [facility] Last Admin: 09/07/18 16:59 Dose: 81 mg Atorvastatin Calcium (Lipitor -) 40 mg PO HS [facility] Last Admin: 09/07/18 21:03 Dose: 40 mg Diltiazem HCl (Cardizem Cd -) 180 mg PO DAILY [facility] Last Admin: 09/07/18 10:14 Dose: 180 mg Docusate Sodium (Colace -) 100 mg PO TID [facility] Last Admin: 09/08/18 05:12 Dose: 100 mg Fenofibric Acid (Trilipix -) 135 mg PO DAILY [facility] Last Admin: 09/07/18 10:20 Dose: 135 mg Furosemide (Lasix -) 40 mg PO DAILY [facility] Last Admin: 09/07/18 10:13 Dose: 40 mg Heparin Sodium (Porcine) (Heparin -) 1,000 unit IVPUSH PRN PRN PRN Reason: Heparin Last Admin: 09/08/18 07:52 Dose: 1,000 unit Heparin Sodium (Porcine) (Heparin -) 5,000 unit IVPUSH PRN PRN PRN Reason: Heparin Last Admin: 09/07/18 23:42 Dose: 5,000 unit Hyoscyamine Sulfate (Levsin Odt -) 0.125 mg PO Q6H PRN PRN Reason: ABDOMINAL PAIN Heparin Sodium/Dextrose (Heparin Infusion -) 25,000 units in 500 mls @ 16 mls/ hr IVPB TITR [facility]; Protocol Last Titration: 09/08/18 07:53 Dose: 1,050 units/hr, 21 mls/hr Isosorbide Mononitrate (Imdur -) 60 mg PO DAILY [facility] Last Admin: 09/07/18 10:13 Dose: 60 mg Lisinopril (Prinivil) 5 mg PO HS [facility] Last Admin: 09/07/18 21:04 Dose: 5 mg Metoclopramide HCl (Reglan -) 5 mg PO TIDAC PRN PRN Reason: NAUSEA Non-Formulary Medication (Patient's Own Med) 1 each PO DAILY [facility] Linzess 145mcg (Non- (Formulary Med)) 1 each PO DAILY [facility] Last Admin: 09/07/18 10:21 Dose: 1 each Oxycodone HCl (Roxicodone -) 30 mg PO HS [facility] Last Admin: 09/07/18 21:04 Dose: 30 mg Oxycodone HCl (Roxicodone -) 10 mg PO 0600,1000,1400,1800 PRN PRN Reason: PAIN LEVEL 6-10 Last Admin: 09/08/18 05:13 Dose: 10 mg Pantoprazole Sodium (Protonix Iv) 40 mg IVPUSH DAILY [facility] Last Admin: 09/07/18 10:14 Dose: 40 mg Prasugrel (Effient -) 5 mg PO DAILY [facility] Last Admin: 09/07/18 10:22 Dose: 5 mg Prednisone (Deltasone -) 20 mg PO BID [facility] Last Admin: 09/07/18 21:03 Dose: 20 mg Ranitidine HCl (Zantac -) 150 mg PO DAILY [facility] Last Admin: 09/07/18 10:12 Dose: 150 mg Ranolazine (Ranexa -) 1,000 mg PO BID [facility] Last Admin: 09/07/18 21:04 Dose: 1,000 mg Sertraline HCl (Zoloft -) 50 mg PO DAILY [facility] Last Admin: 09/07/18 10:44 Dose: 50 mg Simethicone (Mylicon -) 80 mg PO Q4H PRN PRN Reason: INDIGESTION Last Admin: 09/08/18 05:14 Dose: 80 mg Sucralfate (Carafate -) 1 gm PO BID [facility] Last Admin: 09/07/18 21:04 Dose: 1 gm Tamsulosin HCl (Flomax -) 0.4 mg PO HS [facility] Last Admin: 09/07/18 21:03 Dose: 0.4 mg - Objective Vital Signs: Vital Signs Temperature 97.7 F 09/08/18 06:00 Pulse Rate 88 09/08/18 06:00 Respiratory Rate 18 09/08/18 06:00 Blood Pressure 130/81 09/08/18 06:00 O2 Sat by Pulse Oximetry (%) 98 09/07/18 21:00 Eyes: Yes: WNL, Conjunctiva Clear, EOM Intact HENT: Yes: WNL, Atraumatic, Normocephalic Neck: Yes: WNL, Supple, Trachea Midline Cardiovascular: Yes: WNL, Regular Rate and Rhythm Respiratory: Yes: WNL, Regular, CTA Bilaterally Gastrointestinal: Yes: WNL, Normal Bowel Sounds Genitourinary: Yes: WNL Musculoskeletal: Yes: WNL Extremities: Yes: WNL Edema: No Integumentary: Yes: WNL Neurological: Yes: WNL, Alert, Oriented ...Motor Strength: WNL Psychiatric: Yes: WNL Labs: CBC, BMP 09/05/18 06:15 09/06/18 07:25 INR, PTT INR 1.99 (0.83-1.09) H 09/07/18 05:20 Problem List - Problems (1) Acute exacerbation of COPD with asthma Code(s): J44.1 - CHRONIC OBSTRUCTIVE PULMONARY DISEASE W (ACUTE) EXACERBATION; J45.901 - UNSPECIFIED ASTHMA WITH (ACUTE) EXACERBATION (2) BPH (benign prostatic hyperplasia) Code(s): N40.0 - BENIGN PROSTATIC HYPERPLASIA WITHOUT LOWER URINRY TRACT SYMP (3) COPD (chronic obstructive pulmonary disease) Code(s): J44.9 - CHRONIC OBSTRUCTIVE PULMONARY DISEASE, UNSPECIFIED Qualifiers: COPD type: unspecified COPD Qualified Code(s): J44.9 - Chronic obstructive pulmonary disease, unspecified (4) Chest pain Code(s): R07.9 - CHEST PAIN, UNSPECIFIED Qualifiers: Chest pain type: unspecified Qualified Code(s): R07.9 - Chest pain, unspecified (5) Depression Code(s): F32.9 - MAJOR DEPRESSIVE DISORDER, SINGLE EPISODE, UNSPECIFIED (6) Elevated troponin Code(s): R79.89 - OTHER SPECIFIED ABNORMAL FINDINGS OF BLOOD CHEMISTRY (7) GERD (gastroesophageal reflux disease) Code(s): K21.9 - GASTRO-ESOPHAGEAL REFLUX DISEASE WITHOUT ESOPHAGITIS (8) TRACY (acute kidney injury) Code(s): N17.9 - ACUTE KIDNEY FAILURE, UNSPECIFIED (9) Acute coronary syndrome Code(s): I24.9 - ACUTE ISCHEMIC HEART DISEASE, UNSPECIFIED (10) Acute exacerbation of CHF (congestive heart failure) Code(s): I50.9 - HEART FAILURE, UNSPECIFIED (11) Acute on chronic diastolic (congestive) heart failure Code(s): I50.33 - ACUTE ON CHRONIC DIASTOLIC (CONGESTIVE) HEART FAILURE (12) Aortic stenosis Code(s): I35.0 - NONRHEUMATIC AORTIC (VALVE) STENOSIS (13) Atypical chest pain Code(s): R07.89 - OTHER CHEST PAIN (14) Bifascicular bundle branch block Code(s): I45.2 - BIFASCICULAR BLOCK (15) CAD (coronary artery disease) Code(s): I25.10 - ATHSCL HEART DISEASE OF [place] CORONARY ARTERY W/O ANG PCTRS (16) CAP (community acquired pneumonia) Code(s): J18.9 - PNEUMONIA, UNSPECIFIED ORGANISM Qualifiers: (17) CHF (congestive heart failure) Code(s): I50.9 - HEART FAILURE, UNSPECIFIED (18) COPD exacerbation Code(s): J44.1 - CHRONIC OBSTRUCTIVE PULMONARY DISEASE W (ACUTE) EXACERBATION (19) Chest heaviness Code(s): R07.89 - OTHER CHEST PAIN (20) Contusion of rib on right side Code(s): S20.211A - CONTUSION OF RIGHT FRONT WALL OF THORAX, INITIAL ENCOUNTER (21) Demand ischemia Code(s): I24.8 - OTHER FORMS OF ACUTE ISCHEMIC HEART DISEASE (22) Dyspnea Code(s): R06.00 - DYSPNEA, UNSPECIFIED (23) Epigastric abdominal pain Code(s): R10.13 - EPIGASTRIC PAIN (24) Epistaxis Code(s): R04.0 - EPISTAXIS (25) Hypertriglyceridemia Code(s): E78.1 - PURE HYPERGLYCERIDEMIA (26) Hypokalemia Code(s): E87.6 - HYPOKALEMIA (27) Hypotension Code(s): I95.9 - HYPOTENSION, UNSPECIFIED (28) Hypothyroid Code(s): E03.9 - HYPOTHYROIDISM, UNSPECIFIED (29) LPRD (laryngopharyngeal reflux disease) Code(s): K21.9 - GASTRO-ESOPHAGEAL REFLUX DISEASE WITHOUT ESOPHAGITIS (30) Leg pain Code(s): M79.606 - PAIN IN LEG, UNSPECIFIED (31) Myocardial disease Code(s): I51.5 - MYOCARDIAL DEGENERATION (32) Nausea Code(s): R11.0 - NAUSEA (33) Obesity Code(s): E66.9 - OBESITY, UNSPECIFIED (34) Obstructive sleep apnea Code(s): G47.33 - OBSTRUCTIVE SLEEP APNEA (ADULT) (PEDIATRIC) (35) On amiodarone therapy Code(s): Z79.899 - OTHER CLINICAL ENGINEERING MANAGER (CURRENT) DRUG THERAPY (36) PAF (paroxysmal atrial fibrillation) Code(s): I48.0 - PAROXYSMAL ATRIAL FIBRILLATION (37) Pleural effusion Code(s): J90 - PLEURAL EFFUSION, NOT ELSEWHERE CLASSIFIED (38) Pleuritic chest pain Code(s): R07.81 - PLEURODYNIA (39) Pneumonia Code(s): J18.9 - PNEUMONIA, UNSPECIFIED ORGANISM (40) Presence of stent in coronary artery in patient with coronary artery disease Code(s): I25.10 - ATHSCL HEART DISEASE OF [place] CORONARY ARTERY W/O ANG PCTRS; Z95.5 - PRESENCE OF CORONARY ANGIOPLASTY IMPLANT AND GRAFT (41) Rib fractures Code(s): S22.39XA - FRACTURE OF ONE RIB, UNSP SIDE, INIT FOR CLOS FX (42) S/P ablation of atrial fibrillation Code(s): Z98.890 - OTHER SPECIFIED POSTPROCEDURAL STATES; Z86.79 - PERSONAL HISTORY OF OTHER DISEASES OF THE CIRCULATORY SYSTEM (43) SOB (shortness of breath) Code(s): R06.02 - SHORTNESS OF BREATH (44) Sepsis Code(s): A41.9 - SEPSIS, UNSPECIFIED ORGANISM (45) Atrial fibrillation Code(s): I48.91 - UNSPECIFIED ATRIAL FIBRILLATION (46) CAD (coronary artery disease) Code(s): I25.10 - ATHSCL HEART DISEASE OF [place] CORONARY ARTERY W/O ANG PCTRS Qualifiers: (47) COPD (chronic obstructive pulmonary disease) Code(s): J44.9 - CHRONIC OBSTRUCTIVE PULMONARY DISEASE, UNSPECIFIED Qualifiers: (48) Chronic abdominal pain Code(s): R10.9 - UNSPECIFIED ABDOMINAL PAIN; G89.29 - OTHER CHRONIC PAIN (49) Chronic back pain Code(s): M54.9 - DORSALGIA, UNSPECIFIED; G89.29 - OTHER CHRONIC PAIN (50) Chronic diastolic heart failure Code(s): I50.32 - CHRONIC DIASTOLIC (CONGESTIVE) HEART FAILURE (51) Constipation Code(s): K59.00 - CONSTIPATION, UNSPECIFIED (52) History of coronary artery stent placement Code(s): Z95.5 - PRESENCE OF CORONARY ANGIOPLASTY IMPLANT AND GRAFT (53) Hyperlipidemia Code(s): E78.5 - HYPERLIPIDEMIA, UNSPECIFIED (54) Hypertension Code(s): I10 - ESSENTIAL (PRIMARY) HYPERTENSION Assessment/Plan ASSESSMENT: 1. CAD post PCI/stent with evidence of demand ischemic injury angina pectoris, nonstemi 2. Diastolic LV dysfunction with class 0-I NYHA classification LV failure, clinically compensated 3. PAF [id number] score of 4 on A/C with Coumadin 4. Aortic stenosis 5. HTN 6. Hypercholesterolemia 7. COPD exacerbation, resolved 8. GERD PLAN: 1. hold Coumadin . Start IV heparin when inr below 2 close monitoring of CBC, c. cath and revascularization tomorrow. 2. Continue ASA and Effient with caution, but preferably a single agent should be continued in view of concomitant Coumadin administration (higher bleed risk) 3. Continue Amiodarone 4. Continue Cardizem CD but ideally B-Blockers should be added unless contraindicated 5. Continue Imdur and Ranexa 6. Continue Lisinopril 7. Continue Lipitor and Trilipix 8. Continue Lasix but change to PO
[2018-09-08] MEDS: ALBUTEROL SO4 2.5/IPRATROPIUM 0.5 INH SOL 3 ML VIAL.NEB. NEB SCH ×2 (08:05→11:39)
[2018-09-08] MEDS ORDERED: PT OWN MED DRAWER 7, Y5N ONE ×2 (09:19→11:51)
[2018-09-08] MEDS: LINZESS 145 MCG PO SCH (10:04)
[2018-09-08] MEDS: RANOLAZINE E.R. 1,000 MG TABLET (FP) PO SCH (10:05)
[2018-09-08] MEDS: RANITIDINE HCL 150 MG TABLET (FP) PO SCH (10:05)
[2018-09-08] MEDS: SERTRALINE HCL 50 MG TABLET (FP) PO SCH (10:05)
[2018-09-08] MEDS: SUCRALFATE 1 GM TABLET (FP) PO SCH (10:06)
[2018-09-08] MEDS: AMIODARONE HCL 200 MG TABLET (FP) PO SCH (10:12)
[2018-09-08] MEDS: FENOFIBRIC ACID 135 MG CAP PO SCH (10:12)
[2018-09-08] MEDS: PANTOPRAZOLE SODIUM 40 MG VIAL IVPUSH SCH (10:13)
[2018-09-08] MEDS: predniSONE 20 MG TABLET (UD) PO SCH (10:13)
[2018-09-08] MEDS: ISOSORBIDE MONONITRATE 60 MG TAB.SR.24H (FP) PO SCH (10:13)
[2018-09-08] MEDS: PRASUGREL HCL 5 MG TAB PO SCH (10:14)
[2018-09-08] MEDS: FUROSEMIDE 40 MG TABLET (FP) PO SCH (10:14)
[2018-09-08 10:34] LABS: INR 1.23 (0.83-1.09); PROTHROMBIN TIME (PATIENT) 14.5 SEC (9.7-13.0)
[2018-09-08 10:37] VITALS: TEMP 97.8
--- NOTE | 2018-09-08 11:24 | PN ---
Progress Note (short form) - Note Progress Note: PULMONARY AWAKE/ALERT OFFERS NO COMPLAINTS EATING BREAKFAST VSS/AFEBRILE ANICTERIC CLEAR BILATERALLY S1S2 SYST MURMUR BS+ OBESE NO EDEMA LABS/MEDS/CARDIO/XRAYS/NOTES REVIEWED Acute hypercapneic hypoxemic resp failure resolved Likely due to acute pulmonary edema doubt A/E copd or acute pneumonia given presenting symptoms Patient did respond to BIPAP/diuretic trial continue supplemental o2/NIPPV as required/bronchodilators prn transfer to [place] continue Tele monitoring David NICHOLSON MD Problem List - Problems (1) Chest pain Code(s): R07.9 - CHEST PAIN, UNSPECIFIED Qualifiers: Chest pain type: unspecified Qualified Code(s): R07.9 - Chest pain, unspecified (2) Elevated troponin Code(s): R79.89 - OTHER SPECIFIED ABNORMAL FINDINGS OF BLOOD CHEMISTRY (3) GERD (gastroesophageal reflux disease) Code(s): K21.9 - GASTRO-ESOPHAGEAL REFLUX DISEASE WITHOUT ESOPHAGITIS (4) Acute exacerbation of CHF (congestive heart failure) Code(s): I50.9 - HEART FAILURE, UNSPECIFIED (5) Aortic stenosis Code(s): I35.0 - NONRHEUMATIC AORTIC (VALVE) STENOSIS (6) CAD (coronary artery disease) Code(s): I25.10 - ATHSCL HEART DISEASE OF [place] CORONARY ARTERY W/O ANG PCTRS (7) Dyspnea Code(s): R06.00 - DYSPNEA, UNSPECIFIED (8) Obstructive sleep apnea Code(s): G47.33 - OBSTRUCTIVE SLEEP APNEA (ADULT) (PEDIATRIC) (9) PAF (paroxysmal atrial fibrillation) Code(s): I48.0 - PAROXYSMAL ATRIAL FIBRILLATION
--- NOTE | 2018-09-08 11:36 | PN ---
Progress Note, Physician Chief Complaint: CHF Afib COPD History of Present Illness: Others' Prescriptions Patient Name: Phong Candelario Date: 1955 Address: [address] [place] [address] Sex: Male Rx Written Rx Dispensed Drug Quantity Days Supply Prescriber Name 08/30/2018 08/30/2018 oxycodone-acetaminophen 10-325 mg tablet 120 30 InnBari hoang MD 06/19/2018 06/19/2018 oxycodone-acetaminophen 10-325 mg tab 120 30 InnBari hoang MD 06/19/2018 06/19/2018 oxycodone hcl 30 mg tablet 30 30 InnabiBari MD 05/19/2018 05/20/2018 oxycodone hcl 30 mg tablet 30 30 InnabiBair MD 05/19/2018 05/20/2018 oxycodone-acetaminophen 10-325 mg tablet 120 30 InnabiBari MD 04/22/2018 04/22/2018 oxycodone-acetaminophen 10-325 mg tablet 120 30 InnabiBari MD 04/22/2018 04/22/2018 oxycodone hcl 30 mg tablet 30 30 InnabiBari MD 03/17/2018 03/20/2018 oxycodone-acetaminophen 10-325 mg tablet 120 30 InnBari hoang MD nad family at bedside Troponin trend noted, pt denies any CP, SOB is improving Seen by Cardiology warfarin on hold for transfer to [place] for cath Awaiting bed at [place] - Current Medication List Current Medications: Active Medications Acetaminophen (Tylenol -) 650 mg PO Q4H PRN PRN Reason: FEVER Last Admin: 09/03/18 16:36 Dose: 650 mg Albuterol Sulfate (Ventolin Hfa Inhaler -) 2 puff IH Q6H PRN PRN Reason: SHORTNESS OF BREATH Albuterol/Ipratropium (Duoneb -) 1 amp NEB RQID [facility] Last Admin: 09/08/18 08:05 Dose: 1 amp Amiodarone HCl (Cordarone -) 100 mg PO DAILY [facility] Last Admin: 09/08/18 10:12 Dose: 100 mg Aspirin (Asa -) 81 mg PO ACDIN [facility] Last Admin: 09/07/18 16:59 Dose: 81 mg Atorvastatin Calcium (Lipitor -) 40 mg PO HS [facility] Last Admin: 09/07/18 21:03 Dose: 40 mg Diltiazem HCl (Cardizem Cd -) 180 mg PO DAILY [facility] Last Admin: 09/08/18 10:12 Dose: 180 mg Docusate Sodium (Colace -) 100 mg PO TID [facility] Last Admin: 09/08/18 05:12 Dose: 100 mg Fenofibric Acid (Trilipix -) 135 mg PO DAILY [facility] Last Admin: 09/08/18 10:12 Dose: 135 mg Furosemide (Lasix -) 40 mg PO DAILY [facility] Last Admin: 09/08/18 10:14 Dose: Not Given Heparin Sodium (Porcine) (Heparin -) 1,000 unit IVPUSH PRN PRN PRN Reason: Heparin Last Admin: 09/08/18 07:52 Dose: 1,000 unit Heparin Sodium (Porcine) (Heparin -) 5,000 unit IVPUSH PRN PRN PRN Reason: Heparin Last Admin: 09/07/18 23:42 Dose: 5,000 unit Hyoscyamine Sulfate (Levsin Odt -) 0.125 mg PO Q6H PRN PRN Reason: ABDOMINAL PAIN Heparin Sodium/Dextrose (Heparin Infusion -) 25,000 units in 500 mls @ 16 mls/ hr IVPB TITR [facility]; Protocol Last Titration: 09/08/18 07:53 Dose: 1,050 units/hr, 21 mls/hr Isosorbide Mononitrate (Imdur -) 60 mg PO DAILY [facility] Last Admin: 09/08/18 10:13 Dose: 60 mg Lisinopril (Prinivil) 5 mg PO HS [facility] Last Admin: 09/07/18 21:04 Dose: 5 mg Metoclopramide HCl (Reglan -) 5 mg PO TIDAC PRN PRN Reason: NAUSEA Non-Formulary Medication (Patient's Own Med) 1 each PO DAILY [facility] Linzess 145mcg (Non- (Formulary Med)) 1 each PO DAILY [facility] Last Admin: 09/08/18 10:04 Dose: 1 each Oxycodone HCl (Roxicodone -) 30 mg PO HS [facility] Last Admin: 09/07/18 21:04 Dose: 30 mg Oxycodone HCl (Roxicodone -) 10 mg PO 0600,1000,1400,1800 PRN PRN Reason: PAIN LEVEL 6-10 Last Admin: 09/08/18 10:28 Dose: 10 mg Pantoprazole Sodium (Protonix Iv) 40 mg IVPUSH DAILY [facility] Last Admin: 09/08/18 10:13 Dose: 40 mg Prasugrel (Effient -) 5 mg PO DAILY [facility] Last Admin: 09/08/18 10:14 Dose: 5 mg Prednisone (Deltasone -) 20 mg PO BID [facility] Last Admin: 09/08/18 10:13 Dose: 20 mg Ranitidine HCl (Zantac -) 150 mg PO DAILY [facility] Last Admin: 09/08/18 10:05 Dose: 150 mg Ranolazine (Ranexa -) 1,000 mg PO BID [facility] Last Admin: 09/08/18 10:05 Dose: 1,000 mg Sertraline HCl (Zoloft -) 50 mg PO DAILY [facility] Last Admin: 09/08/18 10:05 Dose: 50 mg Simethicone (Mylicon -) 80 mg PO Q4H PRN PRN Reason: INDIGESTION Last Admin: 09/08/18 05:14 Dose: 80 mg Sucralfate (Carafate -) 1 gm PO BID [facility] Last Admin: 09/08/18 10:06 Dose: 1 gm Tamsulosin HCl (Flomax -) 0.4 mg PO HS [facility] Last Admin: 09/07/18 21:03 Dose: 0.4 mg - Objective Vital Signs: Vital Signs Temperature 97.8 F 09/08/18 10:36 Pulse Rate 78 09/08/18 10:36 Respiratory Rate 20 09/08/18 10:36 Blood Pressure 126/62 09/08/18 10:36 O2 Sat by Pulse Oximetry (%) 98 09/07/18 21:00 Constitutional: Yes: Well Nourished, No Distress, Calm, Obese Cardiovascular: Yes: Regular Rate and Rhythm Respiratory: Yes: Regular Gastrointestinal: Yes: Normal Bowel Sounds, Soft, Abdomen, Obese Genitourinary: Yes: WNL Musculoskeletal: Yes: WNL Extremities: Yes: WNL Edema: No Peripheral Pulses WNL: Yes Neurological: Yes: Alert, Oriented Psychiatric: Yes: Alert, Oriented Labs: CBC, BMP 09/05/18 06:15 09/06/18 07:25 INR, PTT INR 1.23 (0.83-1.09) H 09/08/18 06:25 Assessment/Plan (1) Acute exacerbation of COPD with asthma Assessment/Plan: -Pulm on board -Bronchodilators -Bipap as needed -O2 via NC -keep SpO2 >90% -IV abx dc'd -CXR shows progressive congestive and infiltrative changes with enlarged heart and dense left base Code(s): J44.1 - CHRONIC OBSTRUCTIVE PULMONARY DISEASE W (ACUTE) EXACERBATION; J45.901 - UNSPECIFIED ASTHMA WITH (ACUTE) EXACERBATION (2) BPH (benign prostatic hyperplasia) Assessment/Plan: -Tamsulosin Code(s): N40.0 - BENIGN PROSTATIC HYPERPLASIA WITHOUT LOWER URINRY TRACT SYMP (3) Elevated troponin Assessment/Plan: -tele monitoring -trops peaked, now trending down -started on Heparin drip -Transfer to [place] when bed available Code(s): R79.89 - OTHER SPECIFIED ABNORMAL FINDINGS OF BLOOD CHEMISTRY (4) GERD (gastroesophageal reflux disease) Assessment/Plan: -Pantoprazole Code(s): K21.9 - GASTRO-ESOPHAGEAL REFLUX DISEASE WITHOUT ESOPHAGITIS (5) Chest pain Assessment/Plan: -tele monitoring -trops peaked, now trending down -cardiology on board Code(s): R07.9 - CHEST PAIN, UNSPECIFIED Qualifiers: Chest pain type: unspecified Qualified Code(s): R07.9 - Chest pain, unspecified (6) Atrial fibrillation Assessment/Plan: -warfarin on hold -started on heparin drip -Takes Cardizem CD 180 mg at home Code(s): I48.91 - UNSPECIFIED ATRIAL FIBRILLATION (7) CAD (coronary artery disease) Assessment/Plan: -Aspirin and Ranexa Code(s): I25.10 - ATHSCL HEART DISEASE OF [place] CORONARY ARTERY W/O ANG PCTRS Qualifiers: (8) Chronic diastolic heart failure Assessment/Plan: -Cardiology on board -tele monitoring -1L fluid restriction -daily weights -Ranexa, Imdur -Furosemide 40 mg po daily Code(s): I50.32 - CHRONIC DIASTOLIC (CONGESTIVE) HEART FAILURE (9) Pneumonia Assessment/Plan: -CXR shows progressive congestive and infiltrative changes with enlarged heart and dense left base -no leukocytosis -afebrile -Bronchodilators -Pulmonary on board Code(s): J18.9 - PNEUMONIA, UNSPECIFIED ORGANISM
[2018-09-08 13:12] VITALS: BP 126/74; PULSE 81
[2018-09-08] MEDS ORDERED: LIDOCAINE PATCH REMOVAL MC ONE (19:45)
== END 2018-09-08 13:33 | disposition short-term general hospital (02) | DRG 280 ==
LOC: JER 23:39 → JERBED 09-01 00:36 → J4S 09-01 02:46 → OBSVTOIN 09-01 07:30
PROVIDERS: ADMIT Family Medicine; ATTEND Family Medicine
DX: I21.4 Non-ST elevation (NSTEMI) myocardial infarction (principal); I50.33 Acute on chronic diastolic (congestive) heart failure; J96.01 Acute respiratory failure with hypoxia; J96.02 Acute respiratory failure with hypercapnia; J44.1 Chronic obstructive pulmonary disease with (acute) exacerbation; I24.9 Acute ischemic heart disease, unspecified; N40.0 Benign prostatic hyperplasia without lower urinary tract symptoms; R79.89 Other specified abnormal findings of blood chemistry; K21.9 Gastro-esophageal reflux disease without esophagitis; R07.89 Other chest pain; I48.91 Unspecified atrial fibrillation; I25.10 Atherosclerotic heart disease of native coronary artery without angina pectoris; I11.0 Hypertensive heart disease with heart failure; I25.2 Old myocardial infarction; I45.10 Unspecified right bundle-branch block; F41.8 Other specified anxiety disorders; M54.5 Low back pain; G47.33 Obstructive sleep apnea (adult) (pediatric); I48.0 Paroxysmal atrial fibrillation; I44.4 Left anterior fascicular block; D64.9 Anemia, unspecified; I35.0 Nonrheumatic aortic (valve) stenosis; Z79.01 Long term (current) use of anticoagulants; Z95.5 Presence of coronary angioplasty implant and graft; Z87.891 Personal history of nicotine dependence
CPT/HCPCS: 36415; 36600; 71045-TC-FY; 80053; 80061; 82550; 82553; 82803; 83721; 83735; 83880; 84100; 84484; 85025; 85610; 85730; 93005; 93010; 93306-TC; 94640; 94660; 99284-25; G0378; J1644